=== PATIENT | female | born 1950 | race Caucasian/White ===

== ENCOUNTER 2020-01-24 14:06 | Outpatient (REF) | payer MEDICARE, OTHER, SELFPAY ==
--- NOTE | 2020-01-24 | MM_ITS ---
EXAMINATION: MM SCREENING DIGITAL BREAST TOMOSYNTHESIS, BILATERAL CLINICAL INFORMATION: Screening. Asymptomatic. The lifetime risk of breast cancer based on the Tyrer-Cuzick Model is 4%. COMPARISON: Mammography: 12/02/2018, 12/01/2017 TECHNIQUE: Digital breast tomosynthesis is performed in both the craniocaudal and mediolateral oblique views along with computer-aided detection (CAD). Synthesized 2D images are generated from the tomosynthesis. Additional left MLO view is provided. FINDINGS: There are scattered areas of fibroglandular density (ACR BI-RADS breast composition Category b). There are no significant masses, abnormal calcifications, or other abnormalities. The axilla and skin contours are unremarkable. No significant changes. MM/MM tomosynthesis screening BI IMPRESSION: No mammographic evidence of malignancy. ASSESSMENT: BI-RADS 1: Negative RECOMMENDATION: Routine annual mammography screening. This patient's information was entered into a reminder system with a target due date for their next mammogram.
== END 2020-01-24 14:07 | disposition home or self-care (01) ==
LOC: HO.MAMMO 14:06
PROVIDERS: Visit Provider Physician Assistant
DX: Z12.31 Encounter for screening mammogram for malignant neoplasm of breast (principal)
CPT/HCPCS: 77063; 77067

== ENCOUNTER 2020-06-12 14:37 | Inpatient (IN) | payer MEDICARE, OTHER, SELFPAY ==
--- NOTE | ~2020-06-12 | CT_ITS ---
EXAMINATION: CT CHEST, ABDOMEN AND PELVIS WITHOUT CONTRAST CLINICAL INFORMATION: Elevated liver enzymes, 15 days of cough and WBC count 17,000 COMPARISON: No pertinent prior studies are available for comparison. TECHNIQUE: Multidetector volumetric imaging was performed from the thoracic inlet through the pubic symphysis without IV contrast. Sagittal and coronal reformatted images were obtained on the technologist's workstation. This CT examination was performed using dose optimization techniques as appropriate, variously including the following: *Automated exposure control *Adjustment of mA and/or kV according to patient size (this includes techniques or standardized protocols for targeted exams where dose is matched to indication/reason for exam; i.e. extremities or head) *Use of iterative reconstruction technique DLP: 865 mGy-cm FINDINGS: CHEST: Lung: Multiple masses are seen throughout the lungs. Some appear somewhat branching clustered. Many have central air within them. A few of the larger are as follows: a large left perihilar lung mass measuring 3.5 x 3.0 x 2.7 cm and a left lower lobe pleural-based mass measuring 5.5 x 5.5 x 4.9 cm. Differential diagnosis would include metastatic disease along with multifocal pneumonia.. Mediastinum: The mediastinum is normal. The central vascular structures are unremarkable. No hilar or mediastinal lymphadenopathy. Pericardium/Pleura: No significant effusion. No pleural mass or thickening. Chest Wall/Axilla: Increased density is seen in the right breast compared with the left. No discrete mass is seen. ABDOMEN/PELVIS: Peritoneal Space: No significant free air or free fluid identified. Liver, Gallbladder, Biliary Tree: The liver is normal in size, shape, and attenuation. No evidence of hepatic metastatic disease is seen. No focal hepatic lesion or biliary ductal dilatation is present. The gallbladder contains multiple radiopaque gallstones but no evidence of gallbladder wall thickening, or obvious pericholecystic inflammatory changes. Pancreas: Unremarkable Spleen: Unremarkable Adrenal Glands: Left adrenal gland appears thickened. The right is within normal limits Kidneys and Ureters: The kidneys are normal in size, shape, and attenuation. No hydronephrosis, hydroureter, or calculi seen. No perinephric stranding. Bladder: Unremarkable Gastrointestinal Tract: A small hiatal hernia is seen. There is some mild thickening of the second portion of the duodenum with some mild surrounding stranding. Extensive sigmoid diverticular changes are present without diverticulitis. The small and large bowel are otherwise unremarkable. The appendix is unremarkable. Abdominal Wall: No significant hernia is appreciated. Lymph Nodes: No lymphadenopathy. Vascular: The aorta appears normal.. The IVC appears unremarkable. PELVIC VISCERA: Patient status post hysterectomy. I believe the ovaries are seen and may appear normal. OSSEUS STRUCTURES: Degenerative changes present in the spine most marked from L3 through S1. Lytic area in T1 probably a hemangioma. No convincing evidence of osseous metastatic disease is seen. CT/CT abdomen pelvis wo con IMPRESSION: 1. Multifocal masses throughout the lungs. Some have central air and appear cavitary. Others are in somewhat of a branching pattern. Differential diagnosis would include multifocal pneumonia versus metastatic disease. Biopsy would be beneficial at differentiating these 2 possibilities. 2. No associated mediastinal lymphadenopathy. 3. No evidence of hepatic or osseous metastatic disease. 4. Left adrenal thickening which could represent metastatic disease. 5. A small amount of free intraperitoneal fluid is seen with some mild inflammatory changes around the duodenum as described above. A discrete mass lesion is not seen. 6. There is cholelithiasis without cholecystitis. 7. Increased density right breast compared with the left but a discrete mass is not seen. This critical result was discussed with DELPHINE Marrero at 10:45 PM on the evening of the exam and it was ascertained that the content and urgency of the report was understood at the time of direct communication.
--- NOTE | ~2020-06-12 | XR_ITS ---
EXAMINATION: XR CHEST CLINICAL INFORMATION: Bronchoscopy with left biopsies COMPARISON: Previous chest x-ray most recent 06/12/2020 TECHNIQUE: Frontal view of the chest was obtained. FINDINGS: No pneumothorax post bronchoscopy is seen. The cardiac and mediastinal contours are stable. There are bilateral nodules/masses that do not appear appreciably changed. The largest is at the left lung base and measures approximately 3 x 5 cm. There is a right jugular catheter with tip projecting over the SVC. There is no pleural effusion. Bony structures are unremarkable. XR/XR chest 1V IMPRESSION: No pneumothorax post bronchoscopy. Stable bilateral pulmonary nodules/masses.
--- NOTE | ~2020-06-12 | CT_ITS ---
EXAMINATION: CT CHEST WITHOUT CONTRAST CLINICAL INFORMATION: Follow-up multiple pulmonary infiltrates COMPARISON: Previous chest CT 06/12/2020 TECHNIQUE: Multidetector volumetric CT imaging of the chest was done. Axial MIP volume rendering provided. Sagittal and coronal reformatted images were obtained. This CT examination was performed using dose optimization techniques as appropriate, variously including the following: *Automated exposure control *Adjustment of mA and/or kV according to patient size (this includes techniques or standardized protocols for targeted exams where dose is matched to indication/reason for exam; i.e. extremities or head) *Use of iterative reconstruction technique DLP: 181 mGy-cm FINDINGS: LUNGS: There are bilateral cavitary and noncavitary nodules and lung masses. There is a 1.4 x 2.1 cm nodule in the right upper lobe axial image 183 series 7. This is slightly decreased in size from 1.8 x 3 cm on 06/12/2020 exam. There is a 1.9 x 3.3 cm solid nodule in the left upper lobe adjacent to the pleural fissure axial image 236 series 7. This is decreased in size from 2.7 x 3.6 cm axial image 189 series 7 on 06/12/2020 exam. There is bronchial wall thickening focal bronchiectasis in the lingula. There is interval decrease in peribronchial nodules previously seen axial image 239 series 9. There are small nodules in the right middle lobe. Some appear solid and some appear associated with focal bronchiectasis and bronchial wall thickening and are partially cavitary. These appear decreased in size as well. The largest right middle lobe nodule is a cavitary 1.6 x 1.9 cm nodule axial image 407 series 7 compared to 1.8 x 2.5 cm axial image 275 series 7. There are similar-appearing areas of focal bronchiectasis and bronchial wall thickening and surrounding peribronchial cavitary nodules in the right lower lobe. The largest measures 2.3 x 3.2 cm axial image 438 series 7. This measured 3 x 3.8 cm on previous exam axial image 327 series 7 and does not appear appreciably changed in size. This does appear more cavitary. Other more solid-appearing right lower lobe nodules also appear more cavitary. There is a solid 1 cm nodule in the inferior lingula axial image 346 series 7 that is stable. There is a mass in the left lower lobe. This is solid appearing and measures 4.1 x 6.5 cm axial image 439 series 7. This measured 3.3 x 5 cm on prior exam June 2020 and is slightly increased in size. There is an adjacent predominately solid-appearing 1.8 x 1.6 cm left lower lobe nodule axial image 433 series 7. This is decreased in size from approximately 2.3 x 2.8 cm axial image 342 series 7 on June 2020 exam. MEDIASTINUM: There is mild coronary artery calcification. There is a right jugular line with tip in the SVC. The mediastinum is otherwise normal. PLEURA: There is no pleural effusion. No pleural mass or thickening. AXILLA: No lymphadenopathy. UPPER ABDOMEN: Unremarkable. OSSEOUS STRUCTURES: There are degenerative changes of the spine and shoulders. CT/CT chest wo con IMPRESSION: There is mixed appearance of the solid and cavitary pulmonary nodules and masses compared to 06/12/2020 exam. This favors an infectious or inflammatory process. Infections such as fungal infection, RICKY, TB, septic emboli as well as a granulomatous disease and vasculitis should be considered.
--- NOTE | ~2020-06-12 | XR_ITS ---
EXAMINATION: XR CHEST CLINICAL INFORMATION: Weakness. Question pneumonia. COMPARISON: None TECHNIQUE: Frontal view of the chest was obtained. FINDINGS: Cardiac silhouette is normal in size. The lungs are adequately aerated. Retrocardiac opacity is present in addition to a smaller nodular density of the right lung base. Ill-defined opacity in the left midlung is nonspecific. No pleural effusion or pneumothorax. XR/XR chest 1V IMPRESSION: Bilateral nodular opacities are nonspecific. Findings may represent multifocal pneumonia, however, lung masses are not excluded. Clinical correlation recommended. Further evaluation can be obtained with a lateral radiograph or cross-sectional imaging of the chest.
--- NOTE | ~2020-06-12 | IR_ITS ---
PROCEDURE: IR INSERTION OF TUNNEL CATHETER CLINICAL INFORMATION: Renal failure COMPARISON: None TECHNIQUE: Procedure and risks and benefits including bleeding, infection and pneumothorax were discussed with the patient and informed consent was obtained. All elements of maximal sterile barrier technique followed including use of cap, mask, sterile gown, sterile gloves, a sterile full body drape and hand hygiene. Also followed skin preparation with 2% chlorhexidine for cutaneous antisepsis, and sterile ultrasound preparation with sterile gel and probe cover when applicable. The right neck was prepped and draped in the usual sterile fashion. Using ultrasound guidance and a 5 [place] micropuncture system, right internal jugular vein access was obtained. Over an 018 wire, a 5 [place] dilator was positioned in the SVC. An 035 guidewire was advanced through the 5 [place] dilator into the right atrium. Following serial dilatation, an 11.5 [place] 13 cm in length temporary [place] dialysis catheter was placed. Catheter tip is in the SVC. Both ports flushed well, had good blood return and were instilled with 1.2 mL heparin 1000 unit per mL solution. Real-time ultrasound guidance was used to document vein patency and for needle entry. A formal ultrasound picture was recorded. Fluoroscopy time 0.7 minutes. DAP: 167 cGy-cm2 FINDINGS: There is a right internal jugular dialysis catheter with tip projecting over the SVC. IR/IR cvc insert central tunnel IMPRESSION: Right internal jugular 11.5 [place] 13 cm in length [place] dialysis catheter placement.
--- NOTE | ~2020-06-12 | CT_ITS ---
PROCEDURE: CT GUIDED BIOPSY, KIDNEY CLINICAL INFORMATION: Acute kidney failure COMPARISON: June 12, 2020 TECHNIQUE: CT fluoroscopic-guided renal core biopsy This CT examination was performed using dose optimization techniques as appropriate, variously including the following: *Automated exposure control *Adjustment of mA and/or kV according to patient size (this includes techniques or standardized protocols for targeted exams where dose is matched to indication/reason for exam; i.e. extremities or head) *Use of iterative reconstruction technique DLP: 318 mGy-cm FINDINGS: Informed consent was obtained from the patient prior to the procedure. During this process, the procedure and potential alternatives were explained, along with the intended outcome and benefits. The risks of the procedure, as well as the risk of not doing the procedure, were discussed. The patient was given the opportunity to ask questions regarding the procedure and appeared competent to make medical decisions. A signed consent form which documents this discussion was placed in the medical record. Using sterile technique and CT fluoroscopic guidance a 17-gauge guiding needle was directed to the lower pole of the left kidney from posterior approach. 4 18-gauge core samples were obtained. Patient tolerate procedure without difficulty. Post biopsy scanning did not demonstrate any hematoma. CT/CT biopsy renal LT IMPRESSION: Successful ultrasound-guided core biopsy lower pole of the left kidney.
--- NOTE | ~2020-06-12 | IR_ITS ---
PROCEDURE: IR INSERTION OF TUNNEL CATHETER CLINICAL INFORMATION: Renal failure. COMPARISON: None TECHNIQUE: Procedure, risks and benefits including bleeding, infection and pneumothorax were discussed with the patient and informed consent was obtained. All elements of maximal sterile barrier technique followed including use of cap, mask, sterile gown, sterile gloves, a sterile full body drape and hand hygiene. Also followed skin preparation with 2% chlorhexidine for cutaneous antisepsis, and sterile ultrasound preparation with sterile gel and probe cover when applicable. The right neck and chest were prepped and draped in the usual sterile fashion. The skin and soft tissues were anesthetized with 1% lidocaine plain. Both ports of the temporary dialysis catheter were aspirated. The skin and soft tissues of the right anterior chest were anesthetized with 1% lidocaine plain. A small incision was made. A subcutaneous tunnel from the chest to the neck incision was anesthetized with 1% lidocaine plain. A 14.5-Uzbek palindrome permacath was tunneled from the chest to the neck incision. An 035 guidewire was advanced through the existing temporary dialysis catheter into the IVC. Following serial dilatation through a peel-away sheath, permacath was advanced centrally into the chest. Catheter tip is at the cavoatrial junction. Both ports had good blood return, flushed easily and were instilled with 1.9 mL heparin 1000 unit per mL solution. The patient received Versed 0.5 mg during the procedure. FLUOROSCOPY TIME: 0.5 minutes. DAP: 233 cGy-cm2 (hernandez-centimeter squared). IMAGES: 1 saved fluoroscopic image. FINDINGS: There is a right internal jugular dialysis catheter with tip projecting over the cavoatrial junction. IR/IR cvc insert central tunnel IMPRESSION: Right internal jugular 14.5-Uzbek 23 cm in length palindrome permacath placement.
--- NOTE | ~2020-06-12 | IR_ITS ---
EXAMINATION: X-RAY IR ULTRASOUND venous access Real-time ultrasound guidance was used for venous access and to confirm vein patency for right internal jugular vein access. A formal ultrasound picture was recorded.
[2020-06-12 15:10] VITALS: BP 134/64; PULSE 107; RESP 18; TEMP 36.6; O2SAT 96; BMI 28.0
--- NOTE | 2020-06-12 19:22 | ECG_ITS ---
Test Reason : WEAKNESS Blood Pressure : / mmHG Vent. Rate : 094 BPM Atrial Rate : 094 BPM P-R Int : 158 ms QRS Dur : 066 ms QT Int : 330 ms P-R-T Axes : 049 025 004 degrees QTc Int : 412 ms Normal sinus rhythm Possible Left atrial enlargement Low voltage QRS Cannot rule out Anterior infarct , age undetermined Abnormal ECG No previous ECGs available Referred By: Johan Rowan Electronically Signed By:DIANDRA LOCO MD
[2020-06-12 20:03] VITALS: BP 138/67; PULSE 95; RESP 18; TEMP 37.4; O2SAT 94
[2020-06-12] MEDS: 0.9 % Sodium Chloride 1,000 ML 999 ML IV (20:43)
--- NOTE | 2020-06-12 20:44 | PC.NURSE ---
iv inserted, labs drawn, ekg obtained, bladder scan performed, cardiac catheterization technician nsr 90s, vss, ivf hanging per order, will continue to monitor.
[2020-06-12 20:52] LABS: MANUAL DIFF FLAG NO
[2020-06-12 20:56] LABS: Basophils Percent Auto 0.2 % (0-2); Eosinophils Absolute Auto 0.1 X10*3/uL (0.0-0.4); Eosinophils Percent Auto 0.5 % (0-4); Hemoglobin 11.5 g/dl (12.0-16.0); Imm Gran Abs Auto 0.14 X10*3/uL (0.00-0.03); Imm Gran Pct Auto 0.8 % (0.0-0.4); Lymphocytes Absolute Auto 1.1 X10*3/uL (1.2-4.9); Lymphocytes Percent Auto 6.4 % (20-40); Mean Corpuscular HGB Conc 32.9 g/dl (31.0-35.0); Mean Corpuscular Hemoglobin 27.1 pg (27.0-33.0); Mean Corpuscular Volume 82.4 fL (80-98); Mean Platelet Volume 10.8 fL (9.4-12.3); Monocytes Absolute Auto 0.6 X10*3/uL (0.1-1.2); Monocytes Percent Auto 3.3 % (2-11); Neutrophils Absolute Auto 15.2 X10*3/uL (2.0-8.3); Neutrophils Percent Auto 88.8 % (45-73); Platelet Count 532 X10*3/uL (160-400); Red Blood Count 4.25 X10*6/uL (4.20-5.50); Red Cell Distribution Width 14.1 % (11.0-16.0); White Blood Count 17.1 X10*3/uL (4.8-10.8)
[2020-06-12 21:15] LABS: INTERNATIONAL NORM RATIO 1.2 (0.9-1.1); Prothrombin Time 14.2 SEC (10.8-13.0)
[2020-06-12 21:17] LABS: Partial Thromboplastin Time 28.4 SEC (24.1-38.0)
[2020-06-12 21:34] LABS: Troponin-I High Sensitivity 30.5 ng/L (<3.5-17.0)
[2020-06-12 21:35] LABS: Alanine Aminotransferase 93 U/L (0-31); Alkaline Phosphatase 121 U/L (39-117); Anion Gap 28 (12-20); Aspartate Amino Transferase 41 U/L (5-31); Bilirubin Direct 0.3 mg/dL (0.0-0.5); Bilirubin Total 0.5 mg/dL (0.0-1.0); Blood Urea Nitrogen 121 mg/dL (9-16); Calcium 7.8 mg/dL (8.4-10.2); Carbon Dioxide 20 mmol/L (22-29); Chloride 85 mmol/L (96-108); Creatinine Clr Calc Pharmacy 4.7; Estimated Glomerular Filt Rate 3; Glucose Random 123 mg/dL (60-115); Lactate Dehydrogenase 336 U/L (122-220); Lipase 62 U/L (8-78); Magnesium 2.4 mg/dL (1.6-2.6); Potassium 5.1 mmol/L (3.3-5.1); Sodium 128 mmol/L (135-145); Total Protein 6.2 g/dL (6.5-8.0)
[2020-06-12 21:36] LABS: Procalcitonin 1.84 ng/mL
[2020-06-12 22:00] VITALS: BP 142/69; PULSE 89; RESP 18; TEMP 37.1; O2SAT 98
[2020-06-12 22:06] LABS: Influenza A PCR NEGATIVE (Negative); Influenza B PCR NEGATIVE (Negative); Resp Syncy Virus RNA Qual PCR NEGATIVE (Negative); SARS COV2 PCR INHOUSE NEGATIVE (Negative)
--- NOTE | 2020-06-12 22:16 | PC.NURSE ---
warming patients extremities to obtain blood cultures as well as VL, unable to medicate until they are obtained.
[2020-06-12 22:24] LABS: Ferritin 3367 ng/mL (10-250)
[2020-06-12] MEDS: cefTRIAXone sodium 1 GM in 0.9 % Sodium Chloride 50 ML IV (22:39)
--- NOTE | 2020-06-12 22:40 | PC.NURSE ---
pt medicated per order
[2020-06-12] MEDS: Azithromycin 500 MG in 0.9 % Sodium Chloride 250 ML 125 MG IV (23:21)
--- NOTE | 2020-06-12 23:21 | PC.NURSE ---
patients second antibiotic running per order. 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
--- NOTE | 2020-06-12 23:31 | ED_ITS ---
HPI - Weakness General Chief complaint: Weakness Stated complaint: weakness Time Seen by Provider: 06/12/20 19:21 Source: patient Mode of arrival: ambulatory Limitations: no limitations History of Present Illness HPI Narrative: Patient presents to the ED for weakness and coughing for the past 15 days. Patient also states she thinks she lost about 30 lb since April. Patient states slight burning in abdomen. Patient denies any nausea, vomiting, diarrhea, slurred speech, loss of vision, or paralysis of extremities. Patient has described weakness more as fatigue. Related Data Home Medications Medication Instructions Recorded Confirmed amlodipine 1 tab PO QPM 06/12/20 06/12/20 atorvastatin 1 tab PO QPM 06/12/20 06/12/20 Allergies Allergy/AdvReac Type Severity Reaction Status Date / Time No Known Allergies Allergy Verified 06/12/20 15:17 Review of Systems Constitutional: Constitutional: Reports as per HPI, Reports no additional constitutional complaints, Reports fatigue and Reports weakness Eyes: Eyes: Reports as per HPI and Reports no additional eye complaints ENT: Reports system reviewed and no additional complaints, except as documented and Reports as per HPI Cardiovascular: Cardiovascular: Reports as per HPI and Reports no additional cardiovascular complaints Respiratory: Respiratory: Reports as per HPI, Reports no additional respiratory complaints and Reports cough Gastrointestinal: Gastrointestinal: Reports as per HPI and Reports no additional gastrointestinal complaints Genitourinary: Genitourinary: Reports no additional female genitourinary complaints and Reports as per HPI Musculoskeletal: Musculoskeletal: Reports no additional musculoskeletal complaints and Reports as per HPI Neurologic: Reports system reviewed and no additional complaints, except as documented, Reports as per HPI and Reports weakness Psychiatric: Psychiatric: Reports no additional psychiatric complaints and Reports as per HPI Endocrine: Endocrine: Reports fatigue [facility] Social History Social History Alcohol intake: never Smoking Status: Former smoker Use of substances other than those prescribed or required for medical reasons: No Advance Directives: No Advance Directives Information Provided: Yes Physical Exam Vital Signs: Vital Signs: Last Vital Signs Temp 98.7 F 06/12/20 22:00 Pulse 89 06/12/20 22:00 Resp 18 06/12/20 22:00 BP 142/69 H 06/12/20 22:00 Pulse Ox 98 06/12/20 22:00 Body Mass Index 28.0 Const: General: cooperative, healthy appearing, comfortable, no acute distress, well developed, alert, awake and Physically active HENMT: Head: Yes normal to inspection, Yes No palpable skull fracture present, Yes normocephalic, Yes atraumatic, No abrasion, No Christianson's sign, No contusion, No cranial bruits, No hematoma, No laceration, No occipital foramen tenderness, No palpable skull fracture, No raccoon eyes, No scalp lesion, No scalp tenderness, No Temporal artery tenderness present and No periorbital ecchymosis Eyes: General: appearance normal, both eyes and all related structures Neck: Neck: Yes normal visual inspection, Yes full ROM, Yes no lymphadenopathy, Yes no meningeal signs, Yes trachea midline, Yes supple and No tender Chest: Chest palpation & inspection: normal inspection of the chest and normal palpation of entire chest wall Resp: Effort & Inspection: normal respiratory effort and able to speak in complete sentences Auscultation: clear to auscultation bilaterally Cardio: Jugular venous distension: no JVD Heart sounds: S1 normal heart sound present and S2 normal heart sound present GI: Inspection: Yes normal to inspection and No abdominal wall ecchymosis Palpation (GI): Soft to palpation, not firm, nontender, no guarding and not rigid : General: No CVA tenderness and Yes no CVA tenderness Back/Spine/Pelvis: Back: no CVA tenderness, No CVA tenderness and No back tenderness Skin: General skin exam: no rashes or lesions noted and elasticity normal Neuro: Other: Negative facial droop. Negative slurred speech. Negative pronator drift. All extremities equal strength 5+. [id number] and rapid hand movement intact. Negative for any neuro deficit. General: no meningeal signs Extrem: Other: Negative for any swelling, pitting edema, redness, calf tenderness General: Yes normal to inspection and Yes full ROM Psych: Appearance: grossly normal, well kempt and not disheveled Course Course Course Narrative: Will look for source of infection due to patient stating weakness for 15 days with cough. Patient have labs, EKG, troponin, chest x-ray, COVID swab, lactic, and blood culture. Reevaluation(s) Reevaluation #1: X-ray shows possible pneumonia. With patient stating cough and elevated white blood cell count. Antibiotics were started. Patient's BILLIE 2nd other any imaging with IV contrast. Patient to be sent for chest CT and abdominal CT without contrast. Patient never hypoxic or altered. Reevaluation #2: Chest CT shows pneumonia versus mass. Case presented to hospitalist for admission. Diagnosis BILLIE. Positive troponin ( from BILLIE/infection). EKG negative STEMI. Pneumonia. Is alert oriented x3. Spoke with hospitalist who recommend nephrology be consulted due to Elevated creatine. Reevaluation #3: Spoke with Dr. Douglas nephrology and she was informed of patient's history, physical exam, labs, diagnostics. She states presently patient does not need emergent dialysis and think patient is having vasculitis. She recommend patient be kep NPO overnight in case patient needs dialysis in the morning and PermCath should be placed. Hospitalist made aware. MDM - Weakness MDM Narrative Medical decision making narrative: Pneumonia versus mass. BILLIE. Elevated troponin due to infectious process. Lab Data Result diagrams: 06/12/20 20:41 06/12/20 20:41 Labs: Lab Results 06/12/20 06/12/20 06/12/20 Range/Units 20:41 20:41 20:41 WBC 17.1 H (4.8-10.8) X10*3/uL RBC 4.25 (4.20-5.50) X10*6/uL Hgb 11.5 L (12.0-16.0) g/dl Hct 35.0 L (37-47) % MCV 82.4 (80-98) fL MCH 27.1 (27.0-33.0) pg MCHC 32.9 (31.0-35.0) g/dl RDW 14.1 (11.0-16.0) % Plt Count 532 H (160-400) X10*3/uL MPV 10.8 (9.4-12.3) fL Immature Gran % (Auto) 0.8 H (0.0-0.4) % Neut % (Auto) 88.8 H (45-73) % Lymph % (Auto) 6.4 L (20-40) % [place] % (Auto) 3.3 (2-11) % Eos % (Auto) 0.5 (0-4) % Baso % (Auto) 0.2 (0-2) % Lymph # (Auto) 1.1 L (1.2-4.9) X10*3/uL [place] # (Auto) 0.6 (0.1-1.2) X10*3/uL Eos # (Auto) 0.1 (0.0-0.4) X10*3/uL Baso # (Auto) 0.0 (0.0-0.2) X10*3/uL Abs Immat Gran (auto) 0.14 H (0.00-0.03) X10*3/uL Absolute Neuts (auto) 15.2 H (2.0-8.3) X10*3/uL Absolute Nucleated RBC 0.000 (0.0-0.012) X10*3/uL Nucleated RBC % (auto) 0.0 (0.0-0.2) /100WBC PT 14.2 H (10.8-13.0) SEC INR 1.2 H (0.9-1.1) APTT 28.4 (24.1-38.0) SEC Sodium 128 L (135-145) mmol/L Potassium 5.1 (3.3-5.1) mmol/L Chloride 85 L (96-108) mmol/L Carbon Dioxide 20 L (22-29) mmol/L Anion Gap 28 H (12-20) BUN 121 H* (9-16) mg/dL Creatinine 11.69 H* (0.5-1.4) mg/dL Estim Creat Clear Calc 4.7 Estimated GFR 3 Random Glucose 123 H (60-115) mg/dL Lactic Acid (0.5-2.0) mmol/L Calcium 7.8 L (8.4-10.2) mg/dL Magnesium 2.4 (1.6-2.6) mg/dL Ferritin (10-250) ng/mL Total Bilirubin 0.5 (0.0-1.0) mg/dL Direct Bilirubin 0.3 (0.0-0.5) mg/dL AST 41 H (5-31) U/L ALT 93 H (0-31) U/L Alkaline Phosphatase 121 H (39-117) U/L Lactate Dehydrogenase 336 H (122-220) U/L Total Creatine Kinase 15 L (26-140) U/L Troponin I High Sens (<3.5-17.0) ng/L Total Protein 6.2 L (6.5-8.0) g/dL Albumin 3.0 L (3.5-5.0) g/dL Lipase 62 (8-78) U/L Procalcitonin ng/mL Coronavirus (PCR) (Negative) Influenza Type A (PCR) (Negative) Influenza Type B (PCR) (Negative) RSV RNA Qual (PCR) (Negative) 06/12/20 06/12/20 06/12/20 Range/Units 20:41 20:41 20:41 WBC (4.8-10.8) X10*3/uL RBC (4.20-5.50) X10*6/uL Hgb (12.0-16.0) g/dl Hct (37-47) % MCV (80-98) fL MCH (27.0-33.0) pg MCHC (31.0-35.0) g/dl RDW (11.0-16.0) % Plt Count (160-400) X10*3/uL MPV (9.4-12.3) fL Immature Gran % (Auto) (0.0-0.4) % Neut % (Auto) (45-73) % Lymph % (Auto) (20-40) % [place] % (Auto) (2-11) % Eos % (Auto) (0-4) % Baso % (Auto) (0-2) % Lymph # (Auto) (1.2-4.9) X10*3/uL [place] # (Auto) (0.1-1.2) X10*3/uL Eos # (Auto) (0.0-0.4) X10*3/uL Baso # (Auto) (0.0-0.2) X10*3/uL Abs Immat Gran (auto) (0.00-0.03) X10*3/uL Absolute Neuts (auto) (2.0-8.3) X10*3/uL Absolute Nucleated RBC (0.0-0.012) X10*3/uL Nucleated RBC % (auto) (0.0-0.2) /100WBC PT (10.8-13.0) SEC INR (0.9-1.1) APTT (24.1-38.0) SEC Sodium (135-145) mmol/L Potassium (3.3-5.1) mmol/L Chloride (96-108) mmol/L Carbon Dioxide (22-29) mmol/L Anion Gap (12-20) BUN (9-16) mg/dL Creatinine (0.5-1.4) mg/dL Estim Creat Clear Calc Estimated GFR Random Glucose (60-115) mg/dL Lactic Acid (0.5-2.0) mmol/L Calcium (8.4-10.2) mg/dL Magnesium (1.6-2.6) mg/dL Ferritin 3367 H (10-250) ng/mL Total Bilirubin (0.0-1.0) mg/dL Direct Bilirubin (0.0-0.5) mg/dL AST (5-31) U/L ALT (0-31) U/L Alkaline Phosphatase (39-117) U/L Lactate Dehydrogenase (122-220) U/L Total Creatine Kinase (26-140) U/L Troponin I High Sens 30.5 H (<3.5-17.0) ng/L Total Protein (6.5-8.0) g/dL Albumin (3.5-5.0) g/dL Lipase (8-78) U/L Procalcitonin ng/mL Coronavirus (PCR) NEGATIVE (Negative) Influenza Type A (PCR) NEGATIVE (Negative) Influenza Type B (PCR) NEGATIVE (Negative) RSV RNA Qual (PCR) NEGATIVE (Negative) 06/12/20 06/12/20 Range/Units 20:42 22:30 WBC (4.8-10.8) X10*3/uL RBC (4.20-5.50) X10*6/uL Hgb (12.0-16.0) g/dl Hct (37-47) % MCV (80-98) fL MCH (27.0-33.0) pg MCHC (31.0-35.0) g/dl RDW (11.0-16.0) % Plt Count (160-400) X10*3/uL MPV (9.4-12.3) fL Immature Gran % (Auto) (0.0-0.4) % Neut % (Auto) (45-73) % Lymph % (Auto) (20-40) % [place] % (Auto) (2-11) % Eos % (Auto) (0-4) % Baso % (Auto) (0-2) % Lymph # (Auto) (1.2-4.9) X10*3/uL [place] # (Auto) (0.1-1.2) X10*3/uL Eos # (Auto) (0.0-0.4) X10*3/uL Baso # (Auto) (0.0-0.2) X10*3/uL Abs Immat Gran (auto) (0.00-0.03) X10*3/uL Absolute Neuts (auto) (2.0-8.3) X10*3/uL Absolute Nucleated RBC (0.0-0.012) X10*3/uL Nucleated RBC % (auto) (0.0-0.2) /100WBC PT (10.8-13.0) SEC INR (0.9-1.1) APTT (24.1-38.0) SEC Sodium (135-145) mmol/L Potassium (3.3-5.1) mmol/L Chloride (96-108) mmol/L Carbon Dioxide (22-29) mmol/L Anion Gap (12-20) BUN (9-16) mg/dL Creatinine (0.5-1.4) mg/dL Estim Creat Clear Calc Estimated GFR Random Glucose (60-115) mg/dL Lactic Acid 1.0 (0.5-2.0) mmol/L Calcium (8.4-10.2) mg/dL Magnesium (1.6-2.6) mg/dL Ferritin (10-250) ng/mL Total Bilirubin (0.0-1.0) mg/dL Direct Bilirubin (0.0-0.5) mg/dL AST (5-31) U/L ALT (0-31) U/L Alkaline Phosphatase (39-117) U/L Lactate Dehydrogenase (122-220) U/L Total Creatine Kinase (26-140) U/L Troponin I High Sens (<3.5-17.0) ng/L Total Protein (6.5-8.0) g/dL Albumin (3.5-5.0) g/dL Lipase (8-78) U/L Procalcitonin 1.84 ng/mL Coronavirus (PCR) (Negative) Influenza Type A (PCR) (Negative) Influenza Type B (PCR) (Negative) RSV RNA Qual (PCR) (Negative) ECG Data Interpretation: Normal sinus rhythm. Ventricular rate 94. Pr interval 158. QRS 86. QTC 412. Negative STEMI Discharge Plan Discharge Patient Disposition: Admitted As Inpatient
[2020-06-13] VITALS (8 sets, daily range): BP systolic 138–165; BP diastolic 58–72; PULSE 72–99; RESP 16–28; TEMP 36.3–37.1; O2SAT 92–98
[2020-06-13] MEDS: 0.9 % Sodium Chloride 1,000 ML 999 ML IV (02:54)
[2020-06-13] MEDS: 0.9 % Sodium Chloride 1,000 ML 125 ML IVCONT ×3 (02:54→17:08)
[2020-06-13 03:57] LABS: Osmolality, Serum 310 mosm/kg (281-305)
[2020-06-13 03:59] LABS: Troponin-I High Sensitivity 27.2 ng/L (<3.5-17.0)
--- NOTE | 2020-06-13 05:58 | PM.IMHP ---
History of Present Illness Date of Service: 06/13/20 Chief Complaint: weakess This 69-year-old female with past medical history of hypertension and hyperlipidemia presents to the hospital with progressive the worsening fatigue, malaise, and generalized weakness. Patient reports that in April she started feeling weak, sister developing weight loss a total of about 20 or more lb since April on intentional, as well as overall just feeling sick since April but worsened in the past 15 days. Patient has low appetite but tries to stay hydrated. She reports a dry cough with no fever, has chills, no abdominal pain nausea or vomiting but has heartburn, no diarrhea but rather has constipation, no urinary symptoms and no lower extremity edema. Has no weakness numbness or tingling, no headache or change in vision. Around any sick contacts and no recent travel. On arrival to the ED hemodynamically stable with a temperature of 97.9?, heart rate of 107, respiratory rate of 18, blood pressure 134/64, satting 96% on room air Labs are significant for WBC count of 17.1, hemoglobin of 11.5, platelets of 532, PT of 14.2, INR of 1.2, sodium of 128, chloride of 85, BUN of 121, creatinine of 11.69 no baseline for comparison, serum osmolarity of 310, ferritin of 3367, AST of 41, ALT of 93, alk-phos of 121, LDH of 336, procalcitonin of 1.84, COVID-19 negative, influenza A/B and RSV negative. Imaging including chest CT abdominal CT show multifocal masses throughout the lungs, some have central air and appear cavitary, others are in somewhat of a branching pattern. Differential diagnosis would include multifocal pneumonia versus metastatic disease. No mediastinal lymphadenopathy, no evidence of hepatic or osseous metastatic disease, left adrenal thickening which could represent metastatic disease, a small amount of free intraperitoneal fluid is seen with some mild inflammatory changes around the duodenum with no discrete mass, cholelithiasis with no cholecystitis, increased density of right breast compared with left with no discrete mass. Past medical history as below, when asked about her smoking history reports that she smoked from the age of [age] but has not smoked since. Does not drink alcohol and does not use drugs. Patient will be admitted for further management. Review of Systems Review of Systems: Yes all other systems are reviewed and are negative [facility] Medical History (Updated 06/13/20 @ 06:10 by Sol Motta MD) Hyperlipidemia Hypertension Pertinent family history: Significant for prostate cancer in father, COPD in mother Surgical History (Updated 06/13/20 @ 06:07 by Sol Motta MD) H/O hernia repair History of partial hysterectomy Social History (Updated 06/13/20 @ 06:07 by Sol Motta MD) Alcohol intake: never Smoking Status: Former smoker Years Smoked: Five years Smoked in Last 30 Days: No Use of substances other than those prescribed or required for medical reasons: No Advance Directives: No Advance Directives Information Provided: Yes Meds Allergies Allergy/AdvReac Type Severity Reaction Status Date / Time No Known Allergies Allergy Verified 06/12/20 15:17 Active Medications: Current Medications Generic Name Dose Route Start Last Admin Trade Name Freq PRN Reason Stop Dose Admin Acetaminophen 650 mg 06/13/20 03:35 Acetaminophen 325 Mg Tablet PO Q6H PRN Pain, Mild (Pain Scale 1-3) Al Hydroxide/Mg Hydroxide 30 ml 06/13/20 03:35 Magnesium Hydrox/Alum Hydrox 30 Ml Oral.Susp PO Q4H PRN Heartburn/Nausea Amlodipine Besylate 5 mg 06/13/20 03:35 06/13/20 04:24 Amlodipine Besylate 5 Mg Tablet PO Not Given BEDTIME [facility] Protocol Atorvastatin Calcium 10 mg 06/13/20 03:35 06/13/20 04:24 Atorvastatin Calcium 10 Mg Tablet PO Not Given BEDTIME [facility] Azithromycin 500 mg 06/13/20 21:00 Azithromycin 500 Mg Tablet PO Q24H [facility] Docusate Sodium 100 mg 06/13/20 09:00 Docusate Sodium 100 Mg Capsule PO BID [facility] Heparin Sodium (Porcine) 5,000 unit 06/13/20 06:00 Heparin Sodium,Porcine 5,000 Unit/Ml Vial SUBCUT Q12H MAHAMED Sodium Chloride 1,000 mls @ 125 mls/hr 06/13/20 00:30 06/13/20 02:54 Ns IVCONT 125 mls/hr .Q8H MA[facility]AMED Administration Ceftriaxone Sodium 1 gm/ 50 mls @ 100 mls/hr 06/13/20 21:00 Sodium Chloride IV Q24H [facility] Ondansetron HCl 4 mg 06/13/20 03:35 Ondansetron Hcl 4 Mg/2 Ml Vial IVPUSH Q8H PRN Nausea and Vomiting Sodium Chloride 3 ml 06/13/20 08:00 0.9 % Sodium Chloride Flush 3 Ml Syringe IVFLUSH QSHIFT [facility] Home Medications Medication Instructions Recorded Confirmed Last Taken Type amlodipine 1 tab PO QPM 06/12/20 06/12/20 Unknown History atorvastatin 1 tab PO QPM 06/12/20 06/12/20 Unknown History Physical Exam Vital Signs and Narrative: Vital Signs: Last Vital Signs Temp 98.8 F 06/13/20 05:41 Pulse 92 06/13/20 05:41 Resp 20 06/13/20 05:41 BP 151/72 H 06/13/20 05:41 Pulse Ox 94 06/13/20 05:41 Body Mass Index 28.0 Const: General: cooperative, no acute distress, ill appearing and tired appearing Orientation/consciousness: patient oriented x3 Eyes: General: appearance normal, both eyes and all related structures Resp: Effort & Inspection: normal respiratory effort and able to speak in complete sentences Cardio: Rate: regular rate Rhythm: regular rhythm GI: Palpation (GI): Soft to palpation Auscultation: normal bowel sounds Skin: General skin exam: no rashes or lesions noted Neuro: General: patient oriented x3 Cognition (Neuro): normal cognition Extrem: General: Yes normal to inspection and Yes no pedal edema Results Labs CBC and Chem 7: 06/12/20 20:41 06/12/20 20:41 Labs: Laboratory Results - last 24 hr 06/12/20 06/12/20 06/12/20 20:41 20:41 20:41 MCV 82.4 MCH 27.1 MCHC 32.9 RDW 14.1 Plt Count 532 H MPV 10.8 Immature Gran % (Auto) 0.8 H Neut % (Auto) 88.8 H Lymph % (Auto) 6.4 L [place] % (Auto) 3.3 Eos % (Auto) 0.5 Baso % (Auto) 0.2 Lymph # (Auto) 1.1 L [place] # (Auto) 0.6 Eos # (Auto) 0.1 Baso # (Auto) 0.0 Abs Immat Gran (auto) 0.14 H Absolute Neuts (auto) 15.2 H Absolute Nucleated RBC 0.000 Nucleated RBC % (auto) 0.0 PT 14.2 H INR 1.2 H APTT 28.4 Anion Gap 28 H Estim Creat Clear Calc 4.7 Estimated GFR 3 Random Glucose 123 H Osmolality Lactic Acid Calcium 7.8 L Magnesium 2.4 Ferritin Total Bilirubin 0.5 Direct Bilirubin 0.3 AST 41 H ALT 93 H Alkaline Phosphatase 121 H Lactate Dehydrogenase 336 H Total Creatine Kinase 15 L Troponin I High Sens Total Protein 6.2 L Albumin 3.0 L Lipase 62 Procalcitonin Coronavirus (PCR) Influenza Type A (PCR) Influenza Type B (PCR) RSV RNA Qual (PCR) 06/12/20 06/12/20 06/12/20 20:41 20:41 20:41 MCV MCH MCHC RDW Plt Count MPV Immature Gran % (Auto) Neut % (Auto) Lymph % (Auto) [place] % (Auto) Eos % (Auto) Baso % (Auto) Lymph # (Auto) [place] # (Auto) Eos # (Auto) Baso # (Auto) Abs Immat Gran (auto) Absolute Neuts (auto) Absolute Nucleated RBC Nucleated RBC % (auto) PT INR APTT Anion Gap Estim Creat Clear Calc Estimated GFR Random Glucose Osmolality Lactic Acid Calcium Magnesium Ferritin 3367 H Total Bilirubin Direct Bilirubin AST ALT Alkaline Phosphatase Lactate Dehydrogenase Total Creatine Kinase Troponin I High Sens 30.5 H Total Protein Albumin Lipase Procalcitonin Coronavirus (PCR) NEGATIVE Influenza Type A (PCR) NEGATIVE Influenza Type B (PCR) NEGATIVE RSV RNA Qual (PCR) NEGATIVE 06/12/20 06/12/20 06/13/20 20:42 22:30 03:24 MCV MCH MCHC RDW Plt Count MPV Immature Gran % (Auto) Neut % (Auto) Lymph % (Auto) [place] % (Auto) Eos % (Auto) Baso % (Auto) Lymph # (Auto) [place] # (Auto) Eos # (Auto) Baso # (Auto) Abs Immat Gran (auto) Absolute Neuts (auto) Absolute Nucleated RBC Nucleated RBC % (auto) PT INR APTT Anion Gap Estim Creat Clear Calc Estimated GFR Random Glucose Osmolality 310 H Lactic Acid 1.0 Calcium Magnesium Ferritin Total Bilirubin Direct Bilirubin AST ALT Alkaline Phosphatase Lactate Dehydrogenase Total Creatine Kinase Troponin I High Sens Total Protein Albumin Lipase Procalcitonin 1.84 Coronavirus (PCR) Influenza Type A (PCR) Influenza Type B (PCR) RSV RNA Qual (PCR) 06/13/20 03:24 MCV MCH MCHC RDW Plt Count MPV Immature Gran % (Auto) Neut % (Auto) Lymph % (Auto) [place] % (Auto) Eos % (Auto) Baso % (Auto) Lymph # (Auto) [place] # (Auto) Eos # (Auto) Baso # (Auto) Abs Immat Gran (auto) Absolute Neuts (auto) Absolute Nucleated RBC Nucleated RBC % (auto) PT INR APTT Anion Gap Estim Creat Clear Calc Estimated GFR Random Glucose Osmolality Lactic Acid Calcium Magnesium Ferritin Total Bilirubin Direct Bilirubin AST ALT Alkaline Phosphatase Lactate Dehydrogenase Total Creatine Kinase Troponin I High Sens 27.2 H Total Protein Albumin Lipase Procalcitonin Coronavirus (PCR) Influenza Type A (PCR) Influenza Type B (PCR) RSV RNA Qual (PCR) Imaging Radiologist's Impressions: Impressions Chest X-Ray 06/12/20 19:22 IMPRESSION: Bilateral nodular opacities are nonspecific. Findings may represent multifocal pneumonia, however, lung masses are not excluded. Clinical correlation recommended. Further evaluation can be obtained with a lateral radiograph or cross-sectional imaging of the chest. Abdomen/Pelvis CT 06/12/20 21:43 IMPRESSION: 1. Multifocal masses throughout the lungs. Some have central air and appear cavitary. Others are in somewhat of a branching pattern. Differential diagnosis would include multifocal pneumonia versus metastatic disease. Biopsy would be beneficial at differentiating these 2 possibilities. 2. No associated mediastinal lymphadenopathy. 3. No evidence of hepatic or osseous metastatic disease. 4. Left adrenal thickening which could represent metastatic disease. 5. A small amount of free intraperitoneal fluid is seen with some mild inflammatory changes around the duodenum as described above. A discrete mass lesion is not seen. 6. There is cholelithiasis without cholecystitis. 7. Increased density right breast compared with the left but a discrete mass is not seen. This critical result was discussed with DELPHINE Marrero at 10:45 PM on the evening of the exam and it was ascertained that the content and urgency of the report was understood at the time of direct communication. Chest CT 06/12/20 21:43 IMPRESSION: 1. Multifocal masses throughout the lungs. Some have central air and appear cavitary. Others are in somewhat of a branching pattern. Differential diagnosis would include multifocal pneumonia versus metastatic disease. Biopsy would be beneficial at differentiating these 2 possibilities. 2. No associated mediastinal lymphadenopathy. 3. No evidence of hepatic or osseous metastatic disease. 4. Left adrenal thickening which could represent metastatic disease. 5. A small amount of free intraperitoneal fluid is seen with some mild inflammatory changes around the duodenum as described above. A discrete mass lesion is not seen. 6. There is cholelithiasis without cholecystitis. 7. Increased density right breast compared with the left but a discrete mass is not seen. This critical result was discussed with DELPHINE Marrero at 10:45 PM on the evening of the exam and it was ascertained that the content and urgency of the report was understood at the time of direct communication. Assessment and Plan (1) Pneumonia: Status: Acute (2) Lung mass: Status: Acute (3) BILLIE (acute kidney injury): Status: Acute (4) Transaminitis: Status: Acute (5) Elevated troponin: Status: Acute (6) Leukocytosis: Status: Acute (7) Malaise: Status: Acute (8) Abnormal chest CT: Status: Acute This is a 69-year-old female with past medical history of HTN, HLD who presents to the hospital with generalized malaise found to have abnormal findings on imaging as well as significant BILLIE. # abnormal CT imaging: pneumonia versus lung cancer versus vasculitis - patient has abnormal imaging as above - has leukocytosis, elevated prolactin - negative COVID-19 PCR - she also reports 20-30 lb weight loss in the last 2 months - given her leukocytosis, as well as elevated prolactin will treat for pneumonia - nephrology has been consulted for her severe BILLIE which recommends thinking of vasculitis as a differential therefore will also obtain ANCA, YOHAN, and complement levels - will treat for community-acquired pneumonia - follow cultures - Hematology-Oncology consulted # generalized malaise - possibly multifactorial secondary to above-mentioned differentials as well as BILLIE - will start her on IV fluids - admit to telemetry - PT OT when ready to be discharged # BILLIE - no baseline on file but presents today with significantly elevated BUN and creatinine - patient reports low oral intake but endorses adequate fluid intake - nephrology has been consulted - will keep NPO for possible intervention including port placement and dialysis in a.m. # elevated troponin - no chest pain, no EKG changes - monitor # leukocytosis - possibly reactive versus secondary to pneumonia - IV antibiotics as above - follow cultures # hypertension - stable - continue amlodipine DVT prophylaxis: Heparin subQ
[2020-06-13] MEDS: Heparin Sodium,Porcine 5,000 UNIT/ML VIAL 5000 UNIT SUBCUT ×2 (06:31→17:08)
[2020-06-13] MEDS: Docusate Sodium 100 MG CAPSULE PO ×2 (08:47→20:22)
[2020-06-13 09:57] LABS: Glucose Urine UA NEG (NEG); Leukocyte Esterase Urine 2+ (NEG); Nitrite Urine NEG (NEG); Specific Gravity - Urine 1.015 (1.005-1.025); UACC Culture Trigger YES; Urine Blood 2+ (NEG); Urine Ketones NEG (NEG); Urine Protein 2+ MG/DL (NEG-TRACE)
[2020-06-13] MEDS: 0.9 % Sodium Chloride Flush 3 ML SYRINGE IVFLUSH ×2 (10:04→17:07)
[2020-06-13 10:05] LABS: Appearance Urine CLOUDY; Color Urine YELLOW
[2020-06-13 10:11] LABS: Bacteria Urine 2+ /LPF; Squamous Epithelial Cell Urine 3+ /LPF
--- NOTE | 2020-06-13 11:03 | MHC.CM.PN ---
Met with patient in regards to discharge planning. Patient lives with her son, ambulates independently and had no services prior to coming to the ER. PCP verified as Dr Christophe Mayo. Copy of HCP obtained from PCP's office. IMM explained and signed. Patient has been admitted due to Pnuemonia vs Cancer. Patient is not willing to discuss discharging until work up has been completed and patient finds out if she has cancer. Case Management will continue to monitor for d/c needs.
[2020-06-13 11:04] LABS: Anion Gap 25 (12-20); Blood Urea Nitrogen 122 mg/dL (9-16); Calcium 7.2 mg/dL (8.4-10.2); Carbon Dioxide 19 mmol/L (22-29); Chloride 91 mmol/L (96-108); Creatinine Clr Calc Pharmacy 4.8; Estimated Glomerular Filt Rate 3; Glucose Random 138 mg/dL (60-115); Potassium 5.2 mmol/L (3.3-5.1); Sodium 130 mmol/L (135-145)
--- NOTE | 2020-06-13 14:38 | PC.NURSE ---
call made up to [facility], awaiting call back
[2020-06-13] MEDS: Sodium Polystyrene Sulfon/Sorb 15 GM/60 ML ORAL.SUSP PO (17:08)
[2020-06-13] MEDS: Azithromycin 500 MG TABLET PO (20:22)
[2020-06-13] MEDS: Atorvastatin Calcium 10 MG TABLET PO (20:22)
[2020-06-13] MEDS: amLODIPine Besylate 5 MG TABLET PO (20:22)
[2020-06-13] MEDS: cefTRIAXone sodium 1 GM in 0.9 % Sodium Chloride 50 ML IV (20:23)
[2020-06-14] MEDS: 0.9 % Sodium Chloride 1,000 ML 125 ML IVCONT ×3 (01:12→18:21)
[2020-06-14 03:27] VITALS: BP 146/64; PULSE 87; RESP 18; TEMP 36.7; O2SAT 92
--- NOTE | 2020-06-14 05:52 | CONS_ITS ---
DATE OF SERVICE: REASON FOR CONSULTATION: I was called to see this patient to assist in the management of her acute kidney injury. SUMMARY: Akanksha is a 69-year-old woman with a history of hypertension and hyperlipidemia with essentially normal renal function, who has had fatigue, generalized weakness, and has had poor appetite for the last 2 weeks. She has lost about 20 pounds. She has been on amlodipine for blood pressure and comes to the hospital because of generalized weakness. At the time of admission, she was found to have a creatinine of 11 and potassium of 5.1. She had baseline investigations done, which showed evidence of multifocal masses throughout the lungs suggestive of malignancy. There is no urinary tract obstruction. She is on IV fluids and this consultation was requested. PAST MEDICAL HISTORY: Ongoing medical problems include history of hypertension and hyperlipidemia. No renal issues in the past. PAST SURGICAL HISTORY: Includes partial hysterectomy and herniorrhaphy. FAMILY HISTORY: Not significant for admission. Father had prostate cancer. Mom had COPD. SOCIAL HISTORY: She does not consume alcohol. She used to smoke in the past and she had quit smoking 7 years ago. ALLERGIES: NO KNOWN DRUG ALLERGIES. MEDICATIONS AT TIME OF ADMISSION: Include Tylenol, Maalox, amlodipine 5 mg, atorvastatin, azithromycin, and Colace. REVIEW OF SYSTEMS: Positive for generalized weakness, fatigue, some nausea, poor p.o. intake. No diarrhea or constipation. No polyuria or polydipsia. No fever. No rash. All other systems were reviewed with the patient. PHYSICAL EXAMINATION: GENERAL: Today, Akanksha appears comfortable not in any distress. NECK: Supple. No JVD. HEENT: Mucosa is dry. LUNGS: Air entry equal. No rales. HEART: S1 and S2 heard. No gallop or rub. ABDOMEN: Distended, soft, and nontender. Bowel sounds heard. NEUROLOGIC: Alert and awake. No asterixis. EXTREMITIES: No edema. No rash. No clubbing. No palpable lymphadenopathy. VITAL SIGNS: Blood pressure was 140/60, pulse of 68, and temperature 97.3. LABORATORY DATA: Hemoglobin 11.5, platelets 522, and WBC 17.1. Sodium 130, potassium 5.2, CO2 19, BUN 122, creatinine 11.52, and calcium 7.2. Serum osmolality 310. Troponin I of 27.2. Urinalysis showed 2+ protein, 2+ leukocytes with wbc's, 1 to 4 rbc's. IMAGING DATA: CT of the abdomen and pelvis showed no hydronephrosis. Both kidneys appeared normal in size. There is evidence of multifocal masses throughout the lungs. No mediastinal lymphadenopathy. IMPRESSION: 69-year-old woman with acute kidney injury with mild hyponatremia, hyperkalemia, and metabolic acidosis. The differential diagnosis with acute kidney injury includes Acute glomerulonephritis/RPGN,acute tubular necrosis from ischemia. The imaging study did not reveal any evidence of obstruction at this time. Other possibility including rhabdomyolysis should be considered as well. My recommendation is to obtain a spot urine for sodium, creatinine, protein. We will obtain a serological workup including ANCA,MPO,PR3, anti-GBM, YOHAN, Compliments,SPEP for underlying glomerulonephritis. In the meantime, we will administer a dose of Kayexalate to correct hyperkalemia and continue with her IV hydration and monitor the urine output. Today, there is no absolute indication for dialysis. There are no overt signs or symptoms of uremia. If the renal function does not improve in the next 24 to 48 hours or if she has electrolyte imbalance which is difficult to control medically, then she will require renal replacement therapy pending workup. We will follow closely along with the team. Isra Tabor MD BPA/MODL / [id number] MTDD
[2020-06-14 06:00] VITALS: BMI 28.0
[2020-06-14] MEDS: Heparin Sodium,Porcine 5,000 UNIT/ML VIAL 5000 UNIT SUBCUT (06:22)
[2020-06-14 06:45] LABS: MANUAL DIFF FLAG NO
[2020-06-14 06:57] LABS: Basophils Absolute Auto 0.1 X10*3/uL (0.0-0.2); Basophils Percent Auto 0.3 % (0-2); Eosinophils Absolute Auto 0.3 X10*3/uL (0.0-0.4); Eosinophils Percent Auto 1.6 % (0-4); Hematocrit 30.7 % (37-47); Hemoglobin 10.2 g/dl (12.0-16.0); Imm Gran Abs Auto 0.25 X10*3/uL (0.00-0.03); Imm Gran Pct Auto 1.6 % (0.0-0.4); Lymphocytes Absolute Auto 1.1 X10*3/uL (1.2-4.9); Mean Corpuscular HGB Conc 33.2 g/dl (31.0-35.0); Mean Corpuscular Hemoglobin 27.6 pg (27.0-33.0); Mean Corpuscular Volume 83.2 fL (80-98); Monocytes Absolute Auto 0.6 X10*3/uL (0.1-1.2); Monocytes Percent Auto 3.6 % (2-11); Neutrophils Absolute Auto 13.8 X10*3/uL (2.0-8.3); Neutrophils Percent Auto 85.9 % (45-73); Platelet Count 542 X10*3/uL (160-400); Red Blood Count 3.69 X10*6/uL (4.20-5.50); Red Cell Distribution Width 14.5 % (11.0-16.0)
[2020-06-14 08:00] VITALS: BP 148/65; PULSE 88; RESP 20; TEMP 36.4; O2SAT 93
[2020-06-14 08:04] LABS: Anion Gap 24 (12-20); Blood Urea Nitrogen 128 mg/dL (9-16); Calcium 7.3 mg/dL (8.4-10.2); Carbon Dioxide 18 mmol/L (22-29); Chloride 95 mmol/L (96-108); Creatinine Clr Calc Pharmacy 4.8; Estimated Glomerular Filt Rate 3; Glucose Random 108 mg/dL (60-115); Potassium 5.2 mmol/L (3.3-5.1); Sodium 132 mmol/L (135-145)
[2020-06-14 08:39] LABS: Alanine Aminotransferase 75 U/L (0-31); Albumin Level 2.5 g/dL (3.5-5.0); Alkaline Phosphatase 108 U/L (39-117); Aspartate Amino Transferase 35 U/L (5-31); Bilirubin Direct 0.2 mg/dL (0.0-0.5); Bilirubin Total 0.4 mg/dL (0.0-1.0); Total Protein 5.2 g/dL (6.5-8.0)
--- NOTE | 2020-06-14 08:49 | PM.EVENT ---
Event Note Date of Service: 06/14/20 Event Note: I have seen this patient for pulmonary consultation this morning. Patient's history, Lab and imaging reviewed and patient is examined. Complete note to be dictated A: MULTIFOCAL A ROUNDED CONSOLIDATIONS WITH A FEW SHOWING CENTRAL CAVITATION. POSSIBILITIES INCLUDE MULTIFOCAL PNEUMONIA, AND METASTATIC DISEASE. P: I WOULD PREFER TO TREAT HER A CASE OF PNEUMONIA, AND THEN IF THE MASS IS DO NOT SUBSIDE IN SIZE, THEN PLAN FOR THE PERCUTANEOUS NEEDLE BIOPSY. Case discussed with Dr. Rodriguez, and advised to start the patient on ceftriaxone and azithromycin at this time. Will follow.
[2020-06-14] MEDS: 0.9 % Sodium Chloride Flush 3 ML SYRINGE IVFLUSH (09:59)
[2020-06-14 10:37] LABS: Myeloperoxidase Antibody <1.0 AI; Proteinase 3 PR3 Antibodies 6.5 AI
[2020-06-14 11:45] VITALS: BP 162/70; PULSE 75; RESP 20; TEMP 36.1; O2SAT 96
[2020-06-14 12:03] VITALS: BMI 28.0
[2020-06-14 13:21] LABS: Anti Nuclear Antibody Screen NEGATIVE (NEGATIVE)
--- NOTE | 2020-06-14 14:03 | MHC.CM.PN ---
Patient is on IV Solu-medrol, IVF, IV Ceftriaxone and PO Zithromax for question of PNA vs lung CA. Patient's kidney function worse but no dialysis required at this time. Discharge plan is home no services. Family will provide transport. CM will continue to follow for discharge needs.
[2020-06-14 15:20] VITALS: BP 152/66; PULSE 90; RESP 18; TEMP 36.5; O2SAT 94
--- NOTE | 2020-06-14 15:40 | P.PNNP_ITS ---
Subjective Subjective Date of Service: 06/14/20 Physical Exam Vital Signs: Vital Signs: Last Vital Signs Temp 97.7 F 06/14/20 15:20 Pulse 90 06/14/20 15:20 Resp 18 06/14/20 15:20 BP 152/66 H 06/14/20 15:20 Pulse Ox 94 06/14/20 15:20 Body Mass Index 28.0 Const: General: comfortable Orientation/consciousness: patient oriented x3 Neck: Neck: Yes supple Resp: Auscultation: diminished lung sounds Cardio: Heart sounds: no murmurs and no rubs GI: Auscultation: normal bowel sounds Neuro: General: patient oriented x3 Motor exam (neuro): No Asterixis during motor activity present Objective Data Labs CBC & Chem 7: 06/14/20 06:20 06/14/20 06:20 Labs: Laboratory Results - last 24 hr 06/13/20 06/13/20 06/14/20 06:25 06:25 06:20 WBC 16.0 H RBC 3.69 L Hgb 10.2 L Hct 30.7 L MCV 83.2 MCH 27.6 MCHC 33.2 RDW 14.5 Plt Count 542 H MPV 11.0 Immature Gran % (Auto) 1.6 H Neut % (Auto) 85.9 H Lymph % (Auto) 7.0 L [place] % (Auto) 3.6 Eos % (Auto) 1.6 Baso % (Auto) 0.3 Lymph # (Auto) 1.1 L [place] # (Auto) 0.6 Eos # (Auto) 0.3 Baso # (Auto) 0.1 Abs Immat Gran (auto) 0.25 H Absolute Neuts (auto) 13.8 H Absolute Nucleated RBC 0.000 Nucleated RBC % (auto) 0.0 Sodium Potassium Chloride Carbon Dioxide Anion Gap BUN Creatinine Estim Creat Clear Calc Estimated GFR Random Glucose Calcium Total Bilirubin Direct Bilirubin AST ALT Alkaline Phosphatase Total Creatine Kinase Total Protein Albumin YOHAN Screen NEGATIVE Proteinase 3 (PR3) Ab 6.5 H Myeloperoxidase Ab <1.0 06/14/20 06:20 WBC RBC Hgb Hct MCV MCH MCHC RDW Plt Count MPV Immature Gran % (Auto) Neut % (Auto) Lymph % (Auto) [place] % (Auto) Eos % (Auto) Baso % (Auto) Lymph # (Auto) [place] # (Auto) Eos # (Auto) Baso # (Auto) Abs Immat Gran (auto) Absolute Neuts (auto) Absolute Nucleated RBC Nucleated RBC % (auto) Sodium 132 L Potassium 5.2 H Chloride 95 L Carbon Dioxide 18 L Anion Gap 24 H BUN 128 H* Creatinine 11.59 H* Estim Creat Clear Calc 4.8 Estimated GFR 3 Random Glucose 108 Calcium 7.3 L Total Bilirubin 0.4 Direct Bilirubin 0.2 AST 35 H ALT 75 H Alkaline Phosphatase 108 Total Creatine Kinase 42 D Total Protein 5.2 L Albumin 2.5 L YOHAN Screen Proteinase 3 (PR3) Ab Myeloperoxidase Ab Microbiology Microbiology Results: Microbiology 06/13/20 Unknown Urine clean catch - Clean Catch Midstream Urine Culture - Final 06/12/20 22:36 Blood - Venous Blood Culture - Preliminary No growth after 24 hours. 06/12/20 22:30 Blood - Venous Blood Culture - Preliminary No growth after 24 hours. 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
--- NOTE | 2020-06-14 17:45 | P.PNIM_ITS ---
Subjective Subjective Date of Service: 06/15/20 Interval History: probable Rpgn , BILLIE, Pneumonia Review of Systems Patient still generally weak. Denies any shortness of breath, has dry cough but no phlegm. Denies any nausea vomiting or abdominal pain or diarrhea. Denies any urinary complaints. No fever chills Physical Exam Vital Signs: Vital Signs: Last Vital Signs Temp 97.7 F 06/14/20 15:20 Pulse 90 06/14/20 15:20 Resp 18 06/14/20 15:20 BP 152/66 H 06/14/20 15:20 Pulse Ox 94 06/14/20 15:20 Body Mass Index 28.0 Physical exam : Constitutional:: Not in acute distress. Cvs: rrr, [id number] , no murmur res: fair air entry , slightly diminshed at bases. abd: no rebound or guarding ,nt, bs present. ext pulses present , no cyanosis neuro: axo3 , nonfocal. Objective Data Current Medications Generic Name Dose Route Start Last Admin Trade Name Freq PRN Reason Stop Dose Admin Acetaminophen 650 mg 06/13/20 03:35 Acetaminophen 325 Mg Tablet PO Q6H PRN Pain, Mild (Pain Scale 1-3) Al Hydroxide/Mg Hydroxide 30 ml 06/13/20 03:35 Magnesium Hydrox/Alum Hydrox 30 Ml Oral.Susp PO Q4H PRN Heartburn/Nausea Amlodipine Besylate 5 mg 06/13/20 03:35 06/13/20 20:22 Amlodipine Besylate 5 Mg Tablet PO 5 mg BEDTIME MAHAMED Administration Protocol Atorvastatin Calcium 10 mg 06/13/20 03:35 06/13/20 20:22 Atorvastatin Calcium 10 Mg Tablet PO 10 mg BEDTIME MAHAMED Administration Azithromycin 500 mg 06/13/20 21:00 06/13/20 20:22 Azithromycin 500 Mg Tablet PO 500 mg Q24H MAHAMED Administration Docusate Sodium 100 mg 06/13/20 09:00 06/14/20 09:57 Docusate Sodium 100 Mg Capsule PO Not Given BID MAHAMED Heparin Sodium (Porcine) 5,000 unit 06/13/20 06:00 06/14/20 06:22 Heparin Sodium,Porcine 5,000 Unit/Ml Vial SUBCUT 5,000 unit Q12H MAHAMED Administration Sodium Chloride 1,000 mls @ 125 mls/hr 06/13/20 00:30 06/14/20 17:16 Ns IVCONT Infused .Q8H MAHAMED Infusion Ceftriaxone Sodium 1 gm/ 50 mls @ 100 mls/hr 06/13/20 21:00 06/13/20 21:19 Sodium Chloride IV Infused Q24H MAHAMED Infusion Methylprednisolone Sodium 66 mls @ 66 mls/hr 06/14/20 11:35 Succinate 1,000 mg/ Sodium IV 06/16/20 09:59 Chloride DAILY [facility] Omeprazole 20 mg 06/14/20 16:30 Omeprazole 20 Mg Capsule. PO BID@0630,1630 [facility] Ondansetron HCl 4 mg 06/13/20 03:35 Ondansetron Hcl 4 Mg/2 Ml Vial IVPUSH Q8H PRN Nausea and Vomiting Sodium Chloride 3 ml 06/13/20 08:00 06/14/20 17:16 0.9 % Sodium Chloride Flush 3 Ml Syringe IVFLUSH Not Given QSHIFT [facility] Labs CBC & Chem 7: 06/14/20 06:20 06/15/20 08:44 Microbiology Microbiology Results: Microbiology 06/13/20 Unknown Urine clean catch - Clean Catch Midstream Urine Culture - Final 06/12/20 22:36 Blood - Venous Blood Culture - Preliminary No growth after 24 hours. 06/12/20 22:30 Blood - Venous Blood Culture - Preliminary No growth after 24 hours. Assessment and Plan (1) BILLIE (acute kidney injury): Status: Acute Assessment and Plan: Day 2: 69-year-old female with past medical history of HTN, HLD who presents to the hospital with generalized malaise found to have abnormal findings on imaging as well as significant BILLIE. 1.abnormal CT imaging: pneumonia versus lung cancer versus vasculitis patient has abnormal imaging as above has leukocytosis, elevated prolactin,negative COVID-19 PCR, blood culture and urine culture prelim neg she also reports 20-30 lb weight loss in the last 2 months given her leukocytosis, as well as elevated prolactin will treat for pneumonia nephrology has been consulted for her severe BILLIE which recommends thinking of vasculitis as a differential therefore will also obtain ANCA, YOHAN, and complement levels continue ceftriaxone/azithromycin day2. 2. generalized malaise:- possibly multifactorial secondary to above-mentioned differentials as well as BILLIE pt/ot 3.BILLIE: no baseline on file but presents today with significantly elevated BUN and creatinine patient reports low oral intake but endorses adequate fluid intake ? rpgn as serology positive Pr3 : 6.5 adjust fluids to 80 ml/hr addedd pulse solumedrol 4. elevated troponin- no chest pain, no EKG changes 5. leukocytosis: possibly reactive versus secondary to pneumonia IV antibiotics as above blood culture and urine culture prelim neg 6.hypertension: continue amlodipine DVT prophylaxis:hold Heparin subQ due to possible renal biopsy in am
[2020-06-14] MEDS: methylPREDNISolone Sod Succ 1,000 MG in 0.9 % Sodium Chloride 50 ML 66 MG IV (18:21)
[2020-06-14] MEDS: Omeprazole 20 MG CAPSULE.DR PO (18:24)
[2020-06-14 19:17] VITALS: BP 162/64; PULSE 108; RESP 20; TEMP 36.4; O2SAT 94
[2020-06-14] MEDS: Azithromycin 500 MG TABLET PO (21:20)
[2020-06-14] MEDS: Atorvastatin Calcium 10 MG TABLET PO (21:20)
[2020-06-14] MEDS: amLODIPine Besylate 5 MG TABLET PO (21:20)
--- NOTE | 2020-06-14 23:10 | CONS_ITS ---
DATE OF SERVICE: 06/14/2020 HISTORY OF PRESENT ILLNESS: This 69-year-old female has been admitted since yesterday with chief complaint of general fatigue, malaise, and poor appetite. She has mild dry cough off and on. She has no fever, chills, or chest pain. The patient has been feeling weak and tired since mid April. Appetite has been poor as she has not been drinking enough fluids or eating much. There is history of about 20 pounds weight loss in the past 4 to 6 weeks. The patient does have some constipation. No diarrhea. REVIEW OF SYSTEMS: Mainly includes cough, poor appetite, generalized weakness, and no other significant issues. PAST MEDICAL HISTORY: Includes hyperlipidemia and hypertension. No chronic lung disease. No diabetes or previous liver or kidney diseases. PERSONAL HISTORY: The patient is nonsmoker except that in younger age from age 14 to 19, she did smoke about half pack a day. She denies drinking and denies any drugs of abuse. PHYSICAL EXAMINATION: GENERAL: A 69-year-old female, is lying down in bed. She appears very comfortable. VITAL SIGNS: Temperature is normal, respiratory rate 15, heart rate is 82. EAR, NOSE, THROAT EXAMINATION: Normal. NECK: Trachea midline. No lymphadenopathy. No thyromegaly. CHEST: Symmetrical. Percussion note is resonant. She has good breath sounds on both sides. On auscultation, a few inspiratory crackles are heard over the left lower lobe area. CARDIAC: PMI is not palpable. Heart sounds are somewhat distant. No murmurs or gallops. ABDOMEN: Flat, soft, nontender. No palpable mass. EXTREMITIES: No edema or varicosities are noted. LABORATORY DATA: White cell count 16, hemoglobin 10.2, neutrophils are 85.9, and absolute neutrophil of 13.8, slightly elevated. Chest x-ray shows bilateral nodular densities, but no definite consolidation. CT scan of the chest shows that the patient has multifocal rounded masses in both lungs, especially on the left side. Two particular densities are as follows. In the left perihilar area, 3.5 x 3 x 2.7 cm mass. Left lower lobe area, pleural based 5.5 x 5.5 x 4.9 mass and there is suggestion of central cavitation. No mediastinal or hilar lymphadenopathy is noted. There is no significant amount of pleural effusions. CLINICAL IMPRESSION: Bilateral multilobular densities, some of them showing central cavitation. Differential diagnosis is multifocal pneumonia. Also, metastatic lung disease, but no suggestion of primary at this time. These findings could also be consistent with COVID pneumonia, however, COVID test is negative. Also, the tests for influenza A and B are negative. The patient has chemistry findings of acute renal failure. This may be due to poor oral intake and dehydration. RECOMMENDATIONS: 1. Even though there is a strong possibility of metastatic disease, however, I think we should still consider possibility of non-specific pneumonia. 2. I would go ahead and treat her empirically for pneumonia. 3. Continue treatment for acute renal failure with appropriate hydration. 4. We will follow up closely with the repeat CT scan of the chest and if there is no change in the size of the masses, then she should have percutaneous needle biopsy of one of the masses. Thank you very much for asking me to see this patient. MD AUREA Dumont/KEN / [id number]
[2020-06-14 23:19] VITALS: BP 137/56; PULSE 88; RESP 18; TEMP 36.6; O2SAT 93
[2020-06-15] VITALS (10 sets, daily range): BP systolic 136–151; BP diastolic 59–76; PULSE 75–100; RESP 18–20; TEMP 35.7–36.2; O2SAT 91–96; BMI 33.2
[2020-06-15] MEDS: cefTRIAXone sodium 1 GM in 0.9 % Sodium Chloride 50 ML IV ×2 (00:17→20:16)
[2020-06-15] MEDS: 0.9 % Sodium Chloride 1,000 ML 125 ML IVCONT ×2 (00:17→06:45)
[2020-06-15] MEDS: 0.9 % Sodium Chloride Flush 3 ML SYRINGE IVFLUSH ×2 (10:15→15:55)
[2020-06-15] MEDS: methylPREDNISolone Sod Succ 1,000 MG in 0.9 % Sodium Chloride 50 ML 66 MG IV (10:15)
[2020-06-15 10:32] LABS: Anion Gap 28 (12-20); Blood Urea Nitrogen 131 mg/dL (9-16); Calcium 7.6 mg/dL (8.4-10.2); Carbon Dioxide 15 mmol/L (22-29); Chloride 96 mmol/L (96-108); Creatinine Clr Calc Pharmacy 4.8; Estimated Glomerular Filt Rate 3; Glucose Random 178 mg/dL (60-115); Lactate Dehydrogenase 305 U/L (122-220); Potassium 5.9 mmol/L (3.3-5.1); Sodium 133 mmol/L (135-145)
[2020-06-15 11:26] LABS: Complement C3 138 mg/dL (83-193)
--- NOTE | 2020-06-15 13:22 | PM.HEMONCCN ---
Subjective - Subjective Chief complaint: Consult for lung cancer. Patient: new to practice Consult date: 06/15/20 Requesting Physician: Michael. Primary Care Provider: None Physician Medical Summary: DIAGNOSIS: LUNG CANCER. HPI - Consult Narrative Reason for consult: Consult for lung cancer. Narrative: Akanksha Tran is a pleasant 69 year old lady, with a past medical history of hypertension and hyperlipidemia. She presented to the hospital with progressive the worsening fatigue, malaise, and generalized weakness. She reported that in April, she started feeling weak, and developed a weight loss of about 20 or more lb since April, un intentionally. She has had an overall sick feeling, since April, but worsened in the past 15 days. Patient has low appetite but tries to stay hydrated. She reports a dry cough with no fever, has chills, no abdominal pain nausea or vomiting but has heartburn, no diarrhea but rather has constipation, no urinary symptoms and no lower extremity edema. Denies any weakness numbness or tingling, no headache or change in vision. Denies any sick contacts and no recent travel. On arrival: she has been hemodynamically stable: with a temperature of 97.9?, heart rate of 107, respiratory rate of 18, blood pressure 134/64, satting 96% on room air Labs are significant for: WBC count of 17.1, hemoglobin of 11.5, platelets of 532, PT of 14.2, INR of 1.2, sodium of 128, chloride of 85, BUN of 121, creatinine of 11.69 no baseline for comparison, serum osmolarity of 310, ferritin of 3367, AST of 41, ALT of 93, alk-phos of 121, LDH of 336, procalcitonin of 1.84. COVID-19 negative, influenza A/B and RSV negative. Imaging including chest CT abdominal CT showed: Multifocal masses throughout the lungs, some have central air and appear cavitary, others are in somewhat of a branching pattern. Differential diagnosis would include multifocal pneumonia versus metastatic disease. No mediastinal lymphadenopathy, no evidence of hepatic or osseous metastatic disease, left adrenal thickening which could represent metastatic disease, a small amount of free intraperitoneal fluid is seen with some mild inflammatory changes around the duodenum with no discrete mass, cholelithiasis with no cholecystitis, increased density of right breast compared with left with no discrete mass. Past medical history: When asked about her smoking history reports that she smoked from the age of [age] but has not smoked since. Does not drink alcohol and does not use drugs. Review of Systems - Constitutional Reports system reviewed and no additional complaints, except as documented, Reports lack of energy, Reports malaise, Reports weakness, Reports weight loss - Eyes Reports system reviewed and no additional complaints, except as documented, Denies blurry vision - ENT Reports system reviewed and no additional complaints, except as documented - Cardiovascular Reports system reviewed and no additional complaints, except as documented, Reports chest pain - Respiratory Reports no additional respiratory complaints, Reports chest congestion, Reports dyspnea on exertion - Gastrointestinal Reports system reviewed and no additional complaints, except as documented, Denies abdominal pain, Denies change in bowel habits - Genitourinary Reports no additional female genitourinary complaints, Denies abnormal periods - Musculoskeletal Reports system reviewed and no additional complaints, except as documented, Reports back pain - Integumentary/Breasts Skin/Breast: Reports no additional skin complaints, Denies bleeding lesions - Neurologic Reports system reviewed and no additional complaints, except as documented, Reports weakness - Psychiatric Reports system reviewed and no additional complaints, except as documented, Denies abnormal sleep pattern - Endocrine Reports no additional endocrine complaints, Denies cold intolerance - Hematologic/Lymphatic Reports system reviewed and no additional complaints, except as documented, Denies easy bleeding - Allergic/Immunologic Reports system reviewed and no additional complaints, except as documented, Denies GI upset with certain foods PMFSH Medical History: Medical History (Last Updated 06/21/20 @ 15:26 by Joselin White MD) 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 Hyperlipidemia Hypertension Lung nodules Functional capacity: uses cane/walker Patient : No Surgical History: Surgical History (Last Reviewed 06/21/20 @ 10:04 by Elicia Mccoy) H/O hernia repair History of partial hysterectomy Social History: Social History (Last Reviewed 06/21/20 @ 10:04 by Elicia Mccoy) Alcohol History: Alcohol intake: never Occupation Assessmet: service: No Current occupational status: retired Smoking status: Former smoker Home Medications and Allergies Current Medications: Current Medications Generic Name Dose Route Start Last Admin Trade Name Freq PRN Reason Stop Dose Admin Acetaminophen 650 mg 06/13/20 03:35 Acetaminophen 325 Mg Tablet PO Q6H PRN Pain, Mild (Pain Scale 1-3) Al Hydroxide/Mg Hydroxide 30 ml 06/13/20 03:35 Magnesium Hydrox/Alum Hydrox 30 Ml Oral.Susp PO Q4H PRN Heartburn/Nausea Amlodipine Besylate 5 mg 06/13/20 03:35 06/14/20 21:20 Amlodipine Besylate 5 Mg Tablet PO 5 mg BEDTIME MAHAMED Administration Protocol Atorvastatin Calcium 10 mg 06/13/20 03:35 06/14/20 21:20 Atorvastatin Calcium 10 Mg Tablet PO 10 mg BEDTIME MAHAMED Administration Azithromycin 500 mg 06/13/20 21:00 06/14/20 21:20 Azithromycin 500 Mg Tablet PO 500 mg Q24H MAHAMED Administration Docusate Sodium 100 mg 06/13/20 09:00 06/15/20 08:13 Docusate Sodium 100 Mg Capsule PO Not Given BID MAHAMED Heparin Sodium (Porcine) 5,000 unit 06/13/20 06:00 06/14/20 18:39 Heparin Sodium,Porcine 5,000 Unit/Ml Vial SUBCUT Not Given Q12H MAHAMED Ceftriaxone Sodium 1 gm/ 50 mls @ 100 mls/hr 06/13/20 21:00 06/15/20 00:54 Sodium Chloride IV Infused Q24H MAHAMED Infusion Methylprednisolone Sodium 66 mls @ 66 mls/hr 06/14/20 11:35 06/15/20 11:15 Succinate 1,000 mg/ Sodium IV 06/16/20 09:59 Infused Chloride DAILY MAHAMED Infusion Omeprazole 20 mg 06/14/20 16:30 06/15/20 05:15 Omeprazole 20 Mg Capsule.Dr PO Not Given BID@0630,1630 [facility] Ondansetron HCl 4 mg 06/13/20 03:35 Ondansetron Hcl 4 Mg/2 Ml Vial IVPUSH Q8H PRN Nausea and Vomiting Sodium Bicarbonate 650 mg 06/15/20 15:00 Sodium Bicarbonate 650 Mg Tablet PO TID MAHAMED Sodium Chloride 3 ml 06/13/20 08:00 06/15/20 10:15 0.9 % Sodium Chloride Flush 3 Ml Syringe IVFLUSH 3 ml QSHIFT [facility] Administration Home Medications Medication Instructions Recorded Confirmed Type amlodipine 1 tab PO QPM 06/12/20 06/12/20 History atorvastatin 1 tab PO QPM 06/12/20 06/12/20 History Allergies Allergy/AdvReac Type Severity Reaction Status Date / Time No Known Allergies Allergy Verified 06/12/20 15:17 Physical Exam Vital signs: Vital Signs Temp 97.1 F 06/15/20 13:10 Pulse 99 06/15/20 13:10 Resp 18 06/15/20 13:10 BP 145/65 H 06/15/20 13:10 Pulse Ox 94 06/15/20 13:10 Intake & Output 06/14/20 06/15/20 06/15/20 18:59 06:59 18:59 Intake Total 2240 / 3566.833 1326.833 / 3566.833 726.417 / 726.417 Output Total 50 / 50 Balance 2240 / 3516.833 1276.833 / 3516.833 726.417 / 726.417 Urine Output (Average ml/kg/hr) 0.04 0.04 Intake: Intake, Oral Amount 240 / 480 240 / 480 Intake, IV Amount 1999 / 3086.833 1086.833 / 3086.833 726.417 / 726.417 cefTRIAXone sodium 1 gm In 0.9 50 / 50 % Sodium Chloride 50 ml @ 100 mls/hr IV Q24H [facility] Rx#: [id number] methylPREDNISolone Sod Succ 1, 66 / 66 66 / 66 000 mg In 0.9 % Sodium Chloride 50 ml @ 66 mls/hr IV DAILY [facility] Rx#:[id number] 0.9 % Sodium Chloride 1,000 ml 2000 / 2970.833 970.833 / 2970.833 660.417 / 660.417 @ 125 mls/hr IVCONT .Q8H [facility] Rx #:[id number] Output: Output, Urine Amount 50 / 50 Other: Lunch % Eaten 50% Dinner % Eaten 100% Number of Unmeasured Voids 2 Number of Bowel Movements 4 Urine Bedside Commode Urine Color Concentrated Last Bowel Movement 06/14/20 Stool Bedside Commode Stool Amount Small Stool Color Brown Stool Consistency Soft Weight 78.8 kg 93.3 kg Weight in Grams 13445 Weight 93.3 kg - Constitutional Present: moderate distress - Routine HEENT Exam Head: Present: normal inspection ENT: Present: mucous membranes moist - Routine Neck Exam Present: supple - Routine Respiratory Exam Present: CTAB - Routine Cardiovascular Exam Cardiovascular: Present: RRR, S1, S2 - Routine Abdominal Exam Present: soft, nontender - Routine Rectal Exam Patient deferred: digital exam - Routine Skin Exam Present: intact - Routine Neurological Exam Present: alert, oriented X3, altered mental status, vision grossly intact - Detailed Neurological Exam: Coma Scale Eye Opening: Spontaneous (4) Verbal Response: Oriented (5) Motor Response: Obeys commands (6) Elier Coma Scale Total: 15 - Routine Psychiatric Exam Present: depressed Hem/Onc Consult Result - Labs CBC & Chem 7: 06/21/20 05:22 06/21/20 05:22 Labs: BMP 06/15/20 06/15/20 08:44 08:46 Sodium 133 L Cancelled Potassium 5.9 H Cancelled Chloride 96 Cancelled Carbon Dioxide 15 L Cancelled BUN 131 H* Cancelled Creatinine 12.26 H* Cancelled Calcium 7.6 L Cancelled Assessment and Plan (1) Abnormal chest CT Status: Acute 69-year-old lady, admitted with generalized weakness. CT scan of the chest revealed: 1. Multifocal masses throughout the lungs. Some have central air and appear cavitary. Others are in somewhat of a branching pattern. Differential diagnosis would include multifocal pneumonia versus metastatic disease. Biopsy would be beneficial at differentiating these 2 possibilities. 2. No associated mediastinal lymphadenopathy. 3. No evidence of hepatic or osseous metastatic disease. 4. Left adrenal thickening which could represent metastatic disease. 5. A small amount of free intraperitoneal fluid is seen with some mild inflammatory changes around the duodenum as described above. A discrete mass lesion is not seen. 6. There is cholelithiasis without cholecystitis. 7. Increased density right breast compared with the left but a discrete mass is not seen. Concern is for pulmonary metastases. Primary source, include: breast versus GI versus lung. PLAN: Upon discussion with Interventional Radiology, or left lower lobe is the largest mass. Will schedule biopsy of that. Meantime I will check tumor markers. She had a renal biopsy today to evaluate the etiology for CRF. Thank you, CC: Maria Esther Saeed. Hospital course: The patient was admitted for acute kidney injury with hyperkalemia. She was started on hemodialysis and bicarbonate supplementation. 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 Renal biopsy was consistent with necrotizing granulomas as seen in granulomatosis with polyangiitis. She underwent induction therapy with pulse methylprednisolone then prednisone 60 mg/d, and was given her 1st dose of rituximab on 06/17/2020. Double positive disease was ruled out with a negative anti-GBM antibody. Due to initial concern of infectious etiology of her multifocal pulmonary infiltrates, she was treated with ceftriaxone and azithromycin as for pneumonia. Cultures were negative. She subsequently underwent bronchoscopy on 06/21/2020 which demonstrated extensive endobronchial lesions with aretha pus. Gram stain and fungal stains were negative for organisms. At that point, in consultation with Nephrology and Pulmonology, she was transferred her to [facility] to undergo plasma exchange. (2) BILLIE (acute kidney injury) Status: Acute 69-year-old woman with acute kidney injury with mild hyponatremia, hyperkalemia, and metabolic acidosis. The differential diagnosis with acute kidney injury includes Acute glomerulonephritis/RPGN,acute tubular necrosis from ischemia. The imaging study did not reveal any evidence of obstruction at this time. Other possibility including rhabdomyolysis should be considered as well. Recommendations by renal: To obtain a spot urine for sodium, creatinine, protein. Obtain a serological workup including ANCA,MPO,PR3, anti-GBM, YOHAN, Compliments,SPEP for underlying glomerulonephritis. In the meantime, administer a dose of Kayexalate to correct hyperkalemia. Continue with her IV hydration and monitor the urine output. There is no absolute indication for dialysis. There are no overt signs or symptoms of uremia. If the renal function does not improve in the next 24 to 48 hours or if she has electrolyte imbalance which is difficult to control medically, then she will require renal replacement therapy pending workup. PLAN: Patient underwent a kidney biopsy today, for further evaluation of BILLIE, to look for any evidence of glomerulonephritis.
[2020-06-15] MEDS: Sodium Bicarbonate 650 MG TABLET PO ×2 (15:55→20:13)
[2020-06-15] MEDS: Sodium Polystyrene Sulfon/Sorb 15 GM/60 ML ORAL.SUSP 30 GM PO (15:55)
[2020-06-15] MEDS: Omeprazole 20 MG CAPSULE.DR PO (15:55)
--- NOTE | 2020-06-15 16:57 | HO.PM.IMPN ---
Subjective Subjective Date of Service: 06/16/20 Interval History: adavnced renal dis ? rpgn Review of Systems Patient denies any shortness of breath Has cough mostly dry Denies any nausea or vomiting or abdominal pain or fever or chills or diarrhea. Denies any urinary c/o. Physical Exam Vital Signs: Vital Signs: Last Vital Signs Temp 97.2 F 06/15/20 16:00 Pulse 94 06/15/20 16:00 Resp 18 06/15/20 16:00 BP 151/61 H 06/15/20 16:00 Pulse Ox 96 06/15/20 16:00 Body Mass Index 33.2 Constitutional:: Not in acute distress. Cvs: rrr, [id number] , no murmur res: fair air entry , slightly diminshed at bases. abd: no rebound or guarding ,nt, bs present. ext pulses present , no cyanosis neuro: axo3 , nonfocal. Objective Data Current Medications Generic Name Dose Route Start Last Admin Trade Name Freq PRN Reason Stop Dose Admin Acetaminophen 650 mg 06/13/20 03:35 Acetaminophen 325 Mg Tablet PO Q6H PRN Pain, Mild (Pain Scale 1-3) Al Hydroxide/Mg Hydroxide 30 ml 06/13/20 03:35 Magnesium Hydrox/Alum Hydrox 30 Ml Oral.Susp PO Q4H PRN Heartburn/Nausea Amlodipine Besylate 5 mg 06/13/20 03:35 06/14/20 21:20 Amlodipine Besylate 5 Mg Tablet PO 5 mg BEDTIME MAHAMED Administration Protocol Atorvastatin Calcium 10 mg 06/13/20 03:35 06/14/20 21:20 Atorvastatin Calcium 10 Mg Tablet PO 10 mg BEDTIME MAHAMED Administration Azithromycin 500 mg 06/13/20 21:00 06/14/20 21:20 Azithromycin 500 Mg Tablet PO 500 mg Q24H MAHAMED Administration Docusate Sodium 100 mg 06/13/20 09:00 06/15/20 08:13 Docusate Sodium 100 Mg Capsule PO Not Given BID MAHAMED Heparin Sodium (Porcine) 5,000 unit 06/13/20 06:00 06/14/20 18:39 Heparin Sodium,Porcine 5,000 Unit/Ml Vial SUBCUT Not Given Q12H MAHAMED Ceftriaxone Sodium 1 gm/ 50 mls @ 100 mls/hr 06/13/20 21:00 06/15/20 00:54 Sodium Chloride IV Infused Q24H MAHAMED Infusion Methylprednisolone Sodium 66 mls @ 66 mls/hr 06/14/20 11:35 06/15/20 11:15 Succinate 1,000 mg/ Sodium IV 06/16/20 09:59 Infused Chloride DAILY MAHAMED Infusion Omeprazole 20 mg 06/14/20 16:30 06/15/20 15:55 Omeprazole 20 Mg Capsule. PO 20 mg BID@0630,1630 MAHAMED Administration Ondansetron HCl 4 mg 06/13/20 03:35 Ondansetron Hcl 4 Mg/2 Ml Vial IVPUSH Q8H PRN Nausea and Vomiting Sodium Bicarbonate 650 mg 06/15/20 15:00 06/15/20 15:55 Sodium Bicarbonate 650 Mg Tablet PO 650 mg TID MAHAMED Administration Sodium Chloride 3 ml 06/13/20 08:00 06/15/20 15:55 0.9 % Sodium Chloride Flush 3 Ml Syringe IVFLUSH 3 ml QSHIFT MAHAMED Administration Labs CBC & Chem 7: 06/16/20 05:22 06/16/20 05:22 Microbiology Microbiology Results: Microbiology 06/12/20 22:36 Blood - Venous Blood Culture - Preliminary No growth after 48 hours. 06/12/20 22:30 Blood - Venous Blood Culture - Preliminary No growth after 48 hours. 06/13/20 Unknown Urine clean catch - Clean Catch Midstream Urine Culture - Final Assessment and Plan (1) Pneumonia: Status: Acute (2) BILLIE (acute kidney injury): Status: Acute Assessment and Plan: Day 3: 69-year-old female with past medical history of HTN, HLD who presents to the hospital with generalized malaise found to have abnormal findings on imaging as well as significant BILLIE. 1.abnormal CT imaging: pneumonia versus lung cancer versus vasculitis patient has abnormal imaging as above has leukocytosis, elevated prolactin,negative COVID-19 PCR, blood culture and urine culture prelim neg she also reports 20-30 lb weight loss in the last 2 months given her leukocytosis, as well as elevated prolactin will treat for pneumonia nephrology has been consulted for her severe BILLIE which recommends thinking of vasculitis as a differential therefore will also obtain ANCA, YOHAN, and complement levels continue ceftriaxone/azithromycin day3. 2. generalized malaise:- possibly multifactorial secondary to above-mentioned differentials as well as BILLIE: pt/ot 3.BILLIE: Anion gap metabolic acidosis no baseline on file but presents today with significantly elevated BUN and creatinine patient reports low oral intake but endorses adequate fluid intake ? rpgn as serology positive Pr3 : 6.5 pulse iv solumedrol day2, added bicarb p.o. Hyperkalemia: Given Kayexalate p.o. Will monitor BMP in the evening. Patient went for renal biopsy today. Seems to be tolerated the procedure well. Will continue to monitor. 4. elevated troponin- no chest pain, no EKG changes 5. leukocytosis: possibly reactive versus secondary to pneumonia IV antibiotics as above blood culture and urine culture prelim neg 6.hypertension: continue amlodipine DVT prophylaxis:hold Heparin subQ
[2020-06-15] MEDS: Azithromycin 500 MG TABLET PO (20:13)
[2020-06-15] MEDS: amLODIPine Besylate 5 MG TABLET PO (20:13)
[2020-06-15] MEDS: Atorvastatin Calcium 10 MG TABLET PO (20:13)
[2020-06-15] MEDS: Docusate Sodium 100 MG CAPSULE PO (20:28)
[2020-06-15 20:33] LABS: Anion Gap 29 (12-20); Blood Urea Nitrogen 139 mg/dL (9-16); Calcium 7.8 mg/dL (8.4-10.2); Carbon Dioxide 15 mmol/L (22-29); Chloride 96 mmol/L (96-108); Creatinine Clr Calc Pharmacy 4.8; Estimated Glomerular Filt Rate 3; Glucose Random 257 mg/dL (60-115); Potassium 5.2 mmol/L (3.3-5.1); Sodium 135 mmol/L (135-145)
--- NOTE | 2020-06-15 21:30 | PM.PNNEP ---
Subjective Subjective Date of Service: 06/15/20 Interval history: advanced renal dis ? rpgn Feeling ok Physical Exam Vital Signs: Vital Signs: Last Vital Signs Temp 97.0 F 06/15/20 19:22 Pulse 89 06/15/20 19:22 Resp 20 06/15/20 19:22 BP 150/70 H 06/15/20 20:13 Pulse Ox 96 06/15/20 19:22 Body Mass Index 33.2 Const: General: comfortable Orientation/consciousness: patient oriented x3 Neck: Neck: Yes supple Resp: Auscultation: diminished lung sounds Cardio: Heart sounds: no murmurs and no rubs GI: Auscultation: normal bowel sounds Neuro: General: patient oriented x3 Motor exam (neuro): No Asterixis during motor activity present Objective Data Labs CBC & Chem 7: 06/14/20 06:20 06/15/20 18:45 Labs: Laboratory Results - last 24 hr 06/13/20 06/13/20 06/15/20 06:25 06:25 08:44 Sodium 133 L Potassium 5.9 H Chloride 96 Carbon Dioxide 15 L Anion Gap 28 H BUN 131 H* Creatinine 12.26 H* Estim Creat Clear Calc 4.8 Estimated GFR 3 Random Glucose 178 H D Calcium 7.6 L Lactate Dehydrogenase 305 H Carcinoembryonic Ag 0.60 YOHAN Titer TNP YOHAN Titer 2 TNP YOHAN Titer 3 TNP YOHAN Pattern TNP YOHAN Pattern 2 TNP YOHAN Pattern 3 TNP Complement C3 138 Complement C4 24 06/15/20 06/15/20 08:46 18:45 Sodium Cancelled 135 Potassium Cancelled 5.2 H Chloride Cancelled 96 Carbon Dioxide Cancelled 15 L Anion Gap Cancelled 29 H BUN Cancelled 139 H* Creatinine Cancelled 12.55 H* Estim Creat Clear Calc Cancelled 4.8 Estimated GFR Cancelled 3 Random Glucose Cancelled 257 H D Calcium Cancelled 7.8 L Lactate Dehydrogenase Carcinoembryonic Ag YOHAN Titer YOHAN Titer 2 YOHAN Titer 3 YOHAN Pattern YOHAN Pattern 2 YOHAN Pattern 3 Complement C3 Complement C4 Microbiology Microbiology Results: Microbiology 06/12/20 22:36 Blood - Venous Blood Culture - Preliminary No growth after 48 hours. 06/12/20 22:30 Blood - Venous Blood Culture - Preliminary No growth after 48 hours. 06/13/20 Unknown Urine clean catch - Clean Catch Midstream Urine Culture - Final Assessment & Plan Assessment and plan (1) BILLIE (acute kidney injury): Problem details: BILLIE - RPGN PR3 Positive MPO negative Anti GM pending Compliments C3 and C4 normal Others pending Blood c/s negative URie C/s negative High WBC count due RPGN/Steroids . Afebrile. No active infection Kidney biopsy today Permcarh tomorrow followed by dialysis On pulse steroids- Day 2 today Status: Acute Time Spent With Patient Time: Total time spent is greater than 50% in coordination of care (as documented) at patient's floor/unit and/or counseling patient:
[2020-06-15 22:17] LABS: Hematocrit 30.7 % (37-47); Mean Corpuscular HGB Conc 32.6 g/dl (31.0-35.0); Mean Corpuscular Hemoglobin 27.1 pg (27.0-33.0); Mean Corpuscular Volume 83.2 fL (80-98); Platelet Count 597 X10*3/uL (160-400); Red Blood Count 3.69 X10*6/uL (4.20-5.50); Red Cell Distribution Width 14.6 % (11.0-16.0); White Blood Count 16.5 X10*3/uL (4.8-10.8)
[2020-06-15 22:37] LABS: Osmolality Urine 280 mosm/kg (373-1093)
[2020-06-15 22:39] LABS: Creatinine Urine 28.79 mg/dL
[2020-06-16] VITALS (7 sets, daily range): BP systolic 122–136; BP diastolic 57–76; PULSE 75–97; RESP 18–20; TEMP 36–36.3; O2SAT 94–97; BMI 30.2
[2020-06-16] MEDS: 0.9 % Sodium Chloride Flush 3 ML SYRINGE IVFLUSH ×2 (00:28→16:53)
--- NOTE | 2020-06-16 06:00 | PC.NURSE ---
P.? KAYEXELATE I. NOTIFIED FOR CLARIFICATION OF KAYEX ORDER THIS AM.UPDATED MD THAT PT IS NPO FOR PERMACATH PLACEMENT AND DIALYSIS.ALSO THAT BMP HAS BEEN DRAWN AND AWAITING RESULTS. STATES TO HOLD OFF ON GIVING KAYEX THIS AM AND WAIT FOR AM LABS. E.NEXT SHIFT UPDATED.
[2020-06-16 06:33] LABS: Hematocrit 27.9 % (37-47); Hemoglobin 9.1 g/dl (12.0-16.0)
[2020-06-16 07:34] LABS: Anion Gap 29 (12-20); Blood Urea Nitrogen 147 mg/dL (9-16); Calcium 7.5 mg/dL (8.4-10.2); Carbon Dioxide 14 mmol/L (22-29); Chloride 99 mmol/L (96-108); Creatinine Clr Calc Pharmacy 4.4; Estimated Glomerular Filt Rate 3; Glucose Random 195 mg/dL (60-115); Potassium 5.1 mmol/L (3.3-5.1); Sodium 137 mmol/L (135-145)
[2020-06-16] MEDS: methylPREDNISolone Sod Succ 1,000 MG in 0.9 % Sodium Chloride 50 ML 66 MG IV (08:25)
[2020-06-16 08:41] LABS: CA-125 107 U/mL (<35)
--- NOTE | 2020-06-16 10:49 | HO.RADPN ---
RADIOLOGY Narrative Narrative: Right IJ temporary dialysis catheter placed. Tip in SVC. May use line.
--- NOTE | 2020-06-16 11:43 | P.CDIC_ITS ---
CDI Concurrent Query Service Date: 06/16/20 Documentation Clarification: Please clarify if you are treating a proba ble/suspected/likely or confirmed: Protein calorie malnutrition, mild, moderate or severe Please specify if known- protein calorie malnutrition mild.. Provider Response: Other Other Diagnosis: Mild protein calorie malnutrition PLEASE DO NOT DELETE/MODIFY EXISTING CONTENT Additional information is needed in order to code to the highest accuracy and appropriate Severity of Illness (SOI). Please clarify the information noted below in your progress notes and discharge summary. Risk Factors/Clinical Indicators/Treatments Nutrition assessment - 06/14 - non severe malnourished in the context of chronic ill Cancer weight loss moderately mal w 13% wt loss x 2 mths poor PO X 1 month, mildly depleted subcutaneous fat and muscle mass. CDS: Raquel Mcknight CCS, CDIS Contact Number: [phone] Please Review the information above and exercise your independent professional judgment in responding to the query. If you concur, pleas document in the PROGRESS NOTES and DISCHARGE SUMMARY. If you do not agree with the query, please document in the query above. THIS QUERY IS PART OF THE PERMANENT MEDICAL RECORD
--- NOTE | 2020-06-16 11:54 | MHC.CM.PN ---
Patient is on IV Ceftriaxone and IV Solu-Medrol. Patient had renal biopsy and permacath placed. Patient will start on dialysis. Discharge plan pending PT omer. CM will continue to follow patient for discharge needs.
[2020-06-16 12:16] LABS: CA 27.29 18 U/mL (<38); Carbohydrate Antigen 19-9 22 U/mL (<34)
--- NOTE | 2020-06-16 12:36 | PM.PNNEP ---
Subjective Subjective Date of Service: 06/16/20 Interval history: advanced renal dis ? rpgn Feeling ok Physical Exam Vital Signs: Vital Signs: Last Vital Signs Temp 97 F 06/16/20 10:47 Pulse 88 06/16/20 10:47 Resp 20 06/16/20 10:47 BP 127/60 06/16/20 10:47 Pulse Ox 95 06/16/20 10:47 Body Mass Index 30.2 Const: General: comfortable Orientation/consciousness: patient oriented x3 Neck: Neck: Yes supple Resp: Auscultation: diminished lung sounds Cardio: Heart sounds: no murmurs and no rubs GI: Auscultation: normal bowel sounds Neuro: General: patient oriented x3 Motor exam (neuro): No Asterixis during motor activity present Objective Data Labs CBC & Chem 7: 06/16/20 05:22 06/16/20 05:22 Labs: Laboratory Results - last 24 hr 06/15/20 06/15/20 06/15/20 08:44 08:44 18:45 WBC RBC Hgb Hct MCV MCH MCHC RDW Plt Count MPV Absolute Nucleated RBC Nucleated RBC % (auto) Sodium 135 Potassium 5.2 H Chloride 96 Carbon Dioxide 15 L Anion Gap 29 H BUN 139 H* Creatinine 12.55 H* Estim Creat Clear Calc 4.8 Estimated GFR 3 Random Glucose 257 H D Calcium 7.8 L Carcinoembryonic Ag 0.60 CA 19-9 Antigen 22 CA 27-29 18 CA 125 Antigen 107 H Urine Osmolality Ur Random Sodium Urine Creatinine 06/15/20 06/15/20 06/15/20 21:44 21:59 21:59 WBC 16.5 H RBC 3.69 L Hgb 10.0 L Hct 30.7 L MCV 83.2 MCH 27.1 MCHC 32.6 RDW 14.6 Plt Count 597 H MPV 11.0 Absolute Nucleated RBC 0.000 Nucleated RBC % (auto) 0.0 Sodium Potassium Chloride Carbon Dioxide Anion Gap BUN Creatinine Estim Creat Clear Calc Estimated GFR Random Glucose Calcium Carcinoembryonic Ag CA 19-9 Antigen CA 27-29 CA 125 Antigen Urine Osmolality 280 L Ur Random Sodium 73.0 Urine Creatinine 28.79 06/16/20 06/16/20 05:22 05:22 WBC RBC Hgb 9.1 L Hct 27.9 L MCV MCH MCHC RDW Plt Count MPV Absolute Nucleated RBC Nucleated RBC % (auto) Sodium 137 Potassium 5.1 Chloride 99 Carbon Dioxide 14 L Anion Gap 29 H BUN 147 H* Creatinine 12.85 H* Estim Creat Clear Calc 4.4 Estimated GFR 3 Random Glucose 195 H Calcium 7.5 L Carcinoembryonic Ag CA 19-9 Antigen CA 27-29 CA 125 Antigen Urine Osmolality Ur Random Sodium Urine Creatinine Microbiology Microbiology Results: Microbiology 06/12/20 22:36 Blood - Venous Blood Culture - Preliminary No growth after 48 hours. 06/12/20 22:30 Blood - Venous Blood Culture - Preliminary No growth after 48 hours. 06/13/20 Unknown Urine clean catch - Clean Catch Midstream Urine Culture - Final Assessment & Plan Assessment and plan (1) BILLIE (acute kidney injury): Problem details: BILLIE - RPGN PR3 Positive MPO negative Anti GM pending Compliments C3 and C4 normal Others pending Blood c/s negative Urine C/s negative High WBC count due RPGN/Steroids . Afebrile. No active infection Kidney biopsy 06/15 Results pending s/p IJ line insertion and dialysis today On pulse steroids- Day 3 today Status: Acute Time Spent With Patient Time: Total time spent is greater than 50% in coordination of care (as documented) at patient's floor/unit and/or counseling patient:
[2020-06-16 13:19] LABS: Alanine Aminotransferase 71 U/L (0-31); Albumin Level 2.7 g/dL (3.5-5.0); Aspartate Amino Transferase 35 U/L (5-31); Bilirubin Direct 0.2 mg/dL (0.0-0.5); Bilirubin Total 0.3 mg/dL (0.0-1.0); Total Protein 5.5 g/dL (6.5-8.0)
[2020-06-16 13:20] LABS: Alkaline Phosphatase 135 U/L (39-117)
[2020-06-16 13:31] LABS: Phosphorus 11.8 mg/dL (2.7-4.5)
--- NOTE | 2020-06-16 13:37 | MHC.CLN ---
F/U PT IS MODERATELY MALNOURISHED PT WITH 13% SIG WT LOSS X 2 MONTHS, POOR PO X 1 MONTH AND MILDLY DEPLETED SUBCUTANOUES FAT AND MUSCLE MASS PT RECEPTIVE TO TRIAL OF ENSURE TO INCREASE KCALS (PREFERS LISA FLAVOR) PT REPORTED APPETITE IS IMPROVING SLOWLY DIET RX LOW PHOS, LOW K+ -WILL ADD 2GM NA TO CURRENT DIET PER RENAL R/T HD WILL ADD ENSURE BID MONITOR PO INTAKE SEE ALSO CLINICAL NUTRITION ASSESSMENT
[2020-06-16] MEDS: Omeprazole 20 MG CAPSULE.DR PO (16:53)
[2020-06-16] MEDS: Heparin Sodium,Porcine 5,000 UNIT/ML VIAL 5000 UNIT SUBCUT (17:37)
[2020-06-16 18:05] LABS: Creatinine Urine 32.92 mg/dL; Total Protein Urine Random 18 mg/dL (<12)
--- NOTE | 2020-06-16 19:51 | HO.PM.IMPN ---
Subjective Subjective Date of Service: 07/25/20 Interval History: adavnced renal dis ? rpgn, discussed with Nephrology biopsy shows preliminary question of Anahy disease Review of Systems patient denies any chest pain or shortness of breath or abdominal or fever chills still still feels generalized weak p.o. intak Physical Exam Vital Signs: Vital Signs: Last Vital Signs Temp 97 F 06/16/20 19:12 Pulse 91 06/16/20 19:12 Resp 20 06/16/20 19:12 BP 135/67 06/16/20 19:12 Pulse Ox 94 06/16/20 19:12 Body Mass Index 30.2 Constitutional:: Not in acute distress. Cvs: rrr, [id number] , no murmur res: fair air entry , slightly diminshed at bases. abd: no rebound or guarding ,nt, bs present. ext pulses present , no cyanosis neuro: axo3 , nonfocal. Objective Data Current Medications Generic Name Dose Route Start Last Admin Trade Name Freq PRN Reason Stop Dose Admin Acetaminophen 650 mg 06/13/20 03:35 Acetaminophen 325 Mg Tablet PO Q6H PRN Pain, Mild (Pain Scale 1-3) Al Hydroxide/Mg Hydroxide 30 ml 06/13/20 03:35 Magnesium Hydrox/Alum Hydrox 30 Ml Oral.Susp PO Q4H PRN Heartburn/Nausea Amlodipine Besylate 5 mg 06/13/20 03:35 06/15/20 20:13 Amlodipine Besylate 5 Mg Tablet PO 5 mg BEDTIME MAHAMED Administration Protocol Atorvastatin Calcium 10 mg 06/13/20 03:35 06/15/20 20:13 Atorvastatin Calcium 10 Mg Tablet PO 10 mg BEDTIME MAHAMED Administration Azithromycin 500 mg 06/13/20 21:00 06/15/20 20:13 Azithromycin 500 Mg Tablet PO 500 mg Q24H MAHAMED Administration Docusate Sodium 100 mg 06/13/20 09:00 06/16/20 07:39 Docusate Sodium 100 Mg Capsule PO Not Given BID MAHAMED Heparin Sodium (Porcine) 5,000 unit 06/13/20 06:00 06/16/20 17:37 Heparin Sodium,Porcine 5,000 Unit/Ml Vial SUBCUT 5,000 unit Q12H MAHAMED Administration Ceftriaxone Sodium 1 gm/ 50 mls @ 100 mls/hr 06/13/20 21:00 06/15/20 20:51 Sodium Chloride IV Infused Q24H [facility] Infusion Omeprazole 20 mg 06/14/20 16:30 06/16/20 16:53 Omeprazole 20 Mg Capsule. PO 20 mg BID@0630,5630 [facility] Administration Ondansetron HCl 4 mg 06/13/20 03:35 Ondansetron Hcl 4 Mg/2 Ml Vial IVPUSH Q8H PRN Nausea and Vomiting Sodium Bicarbonate 1,300 mg 06/16/20 09:00 06/16/20 13:25 Sodium Bicarbonate 650 Mg Tablet PO Not Given TID [facility] Sodium Chloride 3 ml 06/13/20 08:00 06/16/20 16:53 0.9 % Sodium Chloride Flush 3 Ml Syringe IVFLUSH 3 ml QSHIFT MAHAMED Administration Labs CBC & Chem 7: 06/21/20 05:22 06/21/20 05:22 Microbiology Microbiology Results: Microbiology 06/12/20 22:36 Blood - Venous Blood Culture - Preliminary No growth after 48 hours. 06/12/20 22:30 Blood - Venous Blood Culture - Preliminary No growth after 48 hours. 06/13/20 Unknown Urine clean catch - Clean Catch Midstream Urine Culture - Final Assessment and Plan (1) BILLIE (acute kidney injury): Status: Acute Assessment and Plan: 69-year-old female with past medical history of HTN, HLD who presents to the hospital with generalized malaise found to have abnormal findings on imaging as well as significant BILLIE. 1.abnormal CT imaging: pneumonia versus lung cancer versus vasculitis patient has abnormal imaging as above has leukocytosis, elevated prolactin,negative COVID-19 PCR, blood culture and urine culture prelim neg she also reports 20-30 lb weight loss in the last 2 months given her leukocytosis, as well as elevated prolactin nephrology has been consulted for her severe BILLIE which recommends thinking of vasculitis as a differential therefore will -ANCA, YOHAN, and complement levels protein is 3 level came positive continue ceftriaxone/azithromycin day4. 2. generalized malaise:- possibly multifactorial secondary to above-mentioned differentials as well as BILLIE: pt/ot 3.BILLIE: Anion gap metabolic acidosis no baseline on file but presents today with significantly elevated BUN and creatinine patient reports low oral intake but endorses adequate fluid intake ? rpgn as serology positive Pr3 : 6.5 pulse iv solumedrol day3,added bicarb p.o. Hyperkalemia: Given Kayexalate p.o.- hyperkalemia improved. Renal biopsy she preliminaries shows question of Khalida disease per Nephro. plan -neohro may add rituximab. 4. elevated troponin- no chest pain, no EKG changes 5. leukocytosis: possibly reactive versus secondary to pneumonia IV antibiotics as above blood culture and urine culture negative 6.hypertension: continue amlodipine DVT prophylaxis:hold Heparin subQ
[2020-06-16] MEDS: Sodium Bicarbonate 650 MG TABLET 1300 MG PO (21:34)
[2020-06-16] MEDS: Atorvastatin Calcium 10 MG TABLET PO (21:35)
[2020-06-16] MEDS: Azithromycin 500 MG TABLET PO (21:35)
[2020-06-16] MEDS: amLODIPine Besylate 5 MG TABLET PO (21:35)
[2020-06-16] MEDS: Docusate Sodium 100 MG CAPSULE PO (21:35)
[2020-06-16] MEDS: cefTRIAXone sodium 1 GM in 0.9 % Sodium Chloride 50 ML IV (21:36)
[2020-06-16 22:42] LABS: Prot Elec - Alpha1 0.8 g/dL (0.2-0.3); Prot Elec - Alpha2 1.1 g/dL (0.5-0.9); Prot Elec - Beta 1 0.3 g/dL (0.4-0.6); Prot Elec - Beta 2 0.4 g/dL (0.2-0.5); Prot Elec - Gamma 0.9 g/dL (0.8-1.7); Prot Elec - Total Protein 5.4 g/dL (6.1-8.1)
[2020-06-16 22:42] LABS: Prot Elec - Alpha1 0.8 g/dL (0.2-0.3); Prot Elec - Alpha2 1.3 g/dL (0.5-0.9); Prot Elec - Beta 1 0.2 g/dL (0.4-0.6); Prot Elec - Beta 2 0.4 g/dL (0.2-0.5); Prot Elec - Total Protein 5.6 g/dL (6.1-8.1)
[2020-06-17] VITALS (9 sets, daily range): BP systolic 128–156; BP diastolic 65–72; PULSE 81–93; RESP 16–20; TEMP 36–36.3; O2SAT 89–97; BMI 29.6
[2020-06-17] MEDS: 0.9 % Sodium Chloride Flush 3 ML SYRINGE IVFLUSH ×4 (00:27→20:32)
[2020-06-17] MEDS: Heparin Sodium,Porcine 5,000 UNIT/ML VIAL 5000 UNIT SUBCUT ×2 (06:10→17:44)
[2020-06-17] MEDS: Omeprazole 20 MG CAPSULE.DR PO ×2 (06:10→17:44)
[2020-06-17 07:06] LABS: Hematocrit 27.6 % (37-47); Hemoglobin 9.1 g/dl (12.0-16.0); Mean Corpuscular Hemoglobin 27.3 pg (27.0-33.0); Mean Corpuscular Volume 82.9 fL (80-98); Mean Platelet Volume 10.4 fL (9.4-12.3); NRBC Pct Auto 0.2 /100WBC (0.0-0.2); Platelet Count 504 X10*3/uL (160-400); Red Blood Count 3.33 X10*6/uL (4.20-5.50); Red Cell Distribution Width 14.8 % (11.0-16.0)
[2020-06-17 07:52] LABS: Anion Gap 25 (12-20); Blood Urea Nitrogen 93 mg/dL (9-16); Carbon Dioxide 17 mmol/L (22-29); Chloride 101 mmol/L (96-108); Creatinine Clr Calc Pharmacy 6.5; Estimated Glomerular Filt Rate 5; Glucose Random 149 mg/dL (60-115); Potassium 4.6 mmol/L (3.3-5.1); Sodium 138 mmol/L (135-145)
--- NOTE | 2020-06-17 07:53 | PM.PNNEP ---
Subjective Subjective Date of Service: 06/17/20 Interval history: Events noted Had first HD yesterday Tolerated Ordered Rituximab yesterday. Physical Exam Vital Signs: Vital Signs: Last Vital Signs Temp 97 F 06/17/20 07:01 Pulse 83 06/17/20 07:01 Resp 20 06/17/20 07:01 BP 131/65 06/17/20 07:01 Pulse Ox 94 06/17/20 07:01 Body Mass Index 29.6 Const: General: comfortable Orientation/consciousness: patient oriented x3 Neck: Neck: Yes supple Resp: Auscultation: diminished lung sounds Cardio: Heart sounds: no murmurs and no rubs GI: Auscultation: normal bowel sounds Neuro: General: patient oriented x3 Motor exam (neuro): No Asterixis during motor activity present Objective Data Labs CBC & Chem 7: 06/17/20 06:53 06/17/20 06:53 Labs: Laboratory Results - last 24 hr 06/14/20 06/15/20 06/15/20 12:30 08:44 08:44 WBC RBC Hgb Hct MCV MCH MCHC RDW Plt Count MPV Absolute Nucleated RBC Nucleated RBC % (auto) Sodium Potassium Chloride Carbon Dioxide Anion Gap BUN Creatinine Estim Creat Clear Calc Estimated GFR Random Glucose Calcium Phosphorus Total Bilirubin Direct Bilirubin AST ALT Alkaline Phosphatase Total Protein Total Protein (PEP) 5.4 L 5.6 L Albumin Albumin (PEP) 2.0 L 2.0 L Zotgd-7-Rzyfonvzu 0.8 H 0.8 H Qbbdc-3-Uvkyhwnhh 1.1 H 1.3 H Rqcq-2-Iprogdus 0.3 L 0.2 L Skkr-1-Pygdiuhp 0.4 0.4 Gamma Globulins 0.9 1.0 PEP Interpretation SEE NOTE SEE NOTE CA 19-9 Antigen 22 CA 27-29 18 CA 125 Antigen 107 H U Random Total Protein Urine Creatinine 06/16/20 06/16/20 06/17/20 05:22 Unknown 06:53 WBC 18.0 H RBC 3.33 L Hgb 9.1 L Hct 27.6 L MCV 82.9 MCH 27.3 MCHC 33.0 RDW 14.8 Plt Count 504 H MPV 10.4 Absolute Nucleated RBC 0.030 H Nucleated RBC % (auto) 0.2 Sodium Potassium Chloride Carbon Dioxide Anion Gap BUN Creatinine Estim Creat Clear Calc Estimated GFR Random Glucose Calcium Phosphorus 11.8 H Total Bilirubin 0.3 Direct Bilirubin 0.2 AST 35 H ALT 71 H Alkaline Phosphatase 135 H D Total Protein 5.5 L Total Protein (PEP) Albumin 2.7 L Albumin (PEP) Jdlqa-4-Qplteuctt Blbvc-9-Wjfzbckpf Twoe-3-Lwahuueu Feas-5-Uucmsdmu Gamma Globulins PEP Interpretation CA 19-9 Antigen CA 27-29 CA 125 Antigen U Random Total Protein 18 H Urine Creatinine 32.92 06/17/20 06:53 WBC RBC Hgb Hct MCV MCH MCHC RDW Plt Count MPV Absolute Nucleated RBC Nucleated RBC % (auto) Sodium 138 Potassium 4.6 Chloride 101 Carbon Dioxide 17 L Anion Gap 25 H BUN 93 H* D Creatinine 8.70 H* Estim Creat Clear Calc 6.5 Estimated GFR 5 Random Glucose 149 H Calcium 8.0 L D Phosphorus Total Bilirubin Direct Bilirubin AST ALT Alkaline Phosphatase Total Protein Total Protein (PEP) Albumin Albumin (PEP) Jqfoq-8-Mdrtgkihk Kgntu-3-Rtwrmfbza Mbvj-6-Octnjmmw Wqvv-4-Trvwjkwo Gamma Globulins PEP Interpretation CA 19-9 Antigen CA 27-29 CA 125 Antigen U Random Total Protein Urine Creatinine Microbiology Microbiology Results: Microbiology 06/12/20 22:36 Blood - Venous Blood Culture - Preliminary No growth after 48 hours. 06/12/20 22:30 Blood - Venous Blood Culture - Preliminary No growth after 48 hours. 06/13/20 Unknown Urine clean catch - Clean Catch Midstream Urine Culture - Final Assessment & Plan Assessment and plan (1) BILLIE (acute kidney injury): Problem details: BILLIE - RPGN PR3 Positive MPO negative Anti GM pending Compliments C3 and C4 normal Others pending Blood c/s negative Urine C/s negative High WBC count due RPGN/Steroids . Afebrile. 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
[2020-06-17 08:43] LABS: Procalcitonin 0.66 ng/mL
[2020-06-17 09:19] LABS: HBS Num1 0.43 mIU/mL (0-7.99); HBsAGNum1 0.41 S/CO (0.00-0.99); Hepatitis B Surface Antigen Negative (Negative); ~Hepatitis B Surface Antibody NONREACTIVE (Nonreactive)
[2020-06-17 09:32] LABS: HBc Num1 0.07 S/CO (0.00-0.79); Hepatitis B Core Antibody Nonreactive (Nonreactive); ~HepC Num1 0.07 S/CO (0.00-0.79); ~Hepatitis C Antibody Nonreactive (Nonreactive)
[2020-06-17] MEDS: predniSONE 20 MG TABLET 60 MG PO (09:38)
[2020-06-17] MEDS: Sodium Bicarbonate 650 MG TABLET 1300 MG PO ×3 (09:38→20:27)
--- NOTE | 2020-06-17 10:13 | P.PNPL_ITS ---
Subjective Subjective Date of Service: 06/17/20 Principal diagnosis: PNEUMONIA/ LUNG MASSES Interval history: THIS 69 YEARS OLD VERY PLEASANT FEMALE IS DOING WELL FROM PULMONARY POINT OF VIEW . SHE REMAINS AFEBRILE HAS VERY LITTLE COUGH OR SHORTNESS OF BREATH AND DEFINITELY NO RESPIRATORY DISTRESS. SHE IS DOING OKAY ON ROOM AIR. THE RENAL WORKUP INCLUDING RENAL BIOPSY, IS POSITIVE FOR NECROTIZING GRANULOMATOSIS. AND IT APPEARS THAT HER MASS IS IN THE LUNGS ON BOTH SIDES OR PART OF THE SAME DISEASE, ANAHY'S GRANANULOMATOSIS AND NOT DUE TO INFECTIOUS PROCESS. PATIENT FEELS BETTER ALREADY WITH DIALYSIS AND ALSO PULSE STEROID THERAPY. SHE WILL BE ON PREDNISONE DIRECTED BY THE RENAL SPECIALISTS. Objective Data Labs CBC & Chem 7: 06/17/20 06:53 06/17/20 06:53 Labs: Laboratory Results - last 24 hr 06/14/20 06/15/20 06/15/20 12:30 08:44 08:44 WBC RBC Hgb Hct MCV MCH MCHC RDW Plt Count MPV Absolute Nucleated RBC Nucleated RBC % (auto) Sodium Potassium Chloride Carbon Dioxide Anion Gap BUN Creatinine Estim Creat Clear Calc Estimated GFR Random Glucose Calcium Phosphorus Total Bilirubin Direct Bilirubin AST ALT Alkaline Phosphatase Total Protein Total Protein (PEP) 5.4 L 5.6 L Albumin Albumin (PEP) 2.0 L 2.0 L Lxysp-0-Eqtfaxnqh 0.8 H 0.8 H Ogdxh-7-Zrscwlfti 1.1 H 1.3 H Doty-4-Pveheavk 0.3 L 0.2 L Kqyi-8-Fcqlyxgq 0.4 0.4 Gamma Globulins 0.9 1.0 PEP Interpretation SEE NOTE SEE NOTE CA 19-9 Antigen 22 CA 27-29 18 Procalcitonin U Random Total Protein Urine Creatinine Hep Bs Antigen Hep Bs Antibody Hep B Core Total Ab Hepatitis C Ab (EIA) 06/16/20 06/16/20 06/16/20 05:22 16:36 Unknown WBC RBC Hgb Hct MCV MCH MCHC RDW Plt Count MPV Absolute Nucleated RBC Nucleated RBC % (auto) Sodium Potassium Chloride Carbon Dioxide Anion Gap BUN Creatinine Estim Creat Clear Calc Estimated GFR Random Glucose Calcium Phosphorus 11.8 H Total Bilirubin 0.3 Direct Bilirubin 0.2 AST 35 H ALT 71 H Alkaline Phosphatase 135 H D Total Protein 5.5 L Total Protein (PEP) Albumin 2.7 L Albumin (PEP) Xcwke-5-Zliizoqox Aenit-6-Ahoclnjwb Cyyn-7-Wdwletab Tycs-6-Yynzgixk Gamma Globulins PEP Interpretation CA 19-9 Antigen CA 27-29 Procalcitonin U Random Total Protein 18 H Urine Creatinine 32.92 Hep Bs Antigen Negative Hep Bs Antibody NONREACTIVE Hep B Core Total Ab Nonreactive Hepatitis C Ab (EIA) Nonreactive 06/17/20 06/17/20 06/17/20 06:53 06:53 06:53 WBC 18.0 H RBC 3.33 L Hgb 9.1 L Hct 27.6 L MCV 82.9 MCH 27.3 MCHC 33.0 RDW 14.8 Plt Count 504 H MPV 10.4 Absolute Nucleated RBC 0.030 H Nucleated RBC % (auto) 0.2 Sodium 138 Potassium 4.6 Chloride 101 Carbon Dioxide 17 L Anion Gap 25 H BUN 93 H* D Creatinine 8.70 H* Estim Creat Clear Calc 6.5 Estimated GFR 5 Random Glucose 149 H Calcium 8.0 L D Phosphorus Total Bilirubin Direct Bilirubin AST ALT Alkaline Phosphatase Total Protein Total Protein (PEP) Albumin Albumin (PEP) Xrdby-3-Zyionwecz Rxzal-4-Adtosvqye Tpia-1-Sltbiyxg Oujo-5-Phogvuxv Gamma Globulins PEP Interpretation CA 19-9 Antigen CA 27-29 Procalcitonin 0.66 U Random Total Protein Urine Creatinine Hep Bs Antigen Hep Bs Antibody Hep B Core Total Ab Hepatitis C Ab (EIA) Microbiology Microbiology Results: Microbiology 06/12/20 22:36 Blood - Venous Blood Culture - Preliminary No growth after 48 hours. 06/12/20 22:30 Blood - Venous Blood Culture - Preliminary No growth after 48 hours. 06/13/20 Unknown Urine clean catch - Clean Catch Midstream Urine Culture - Final Physical Exam Vital Signs: Vital Signs: Last Vital Signs Temp 97 F 06/17/20 07:01 Pulse 83 06/17/20 07:01 Resp 20 06/17/20 07:01 BP 131/65 06/17/20 07:01 Pulse Ox 94 06/17/20 07:01 Body Mass Index 29.6 Const: Other: PATIENT LOOKS VERY COMFORTABLE, SHE HAS NO RESPIRATORY DISTRESS. Resp: Other: JUST AUSCULTATION WHEELS GOOD BREATH SOUNDS ON BOTH SIDES AND NO DEFINITE CREPITATIONS OR WHEEZES. Assessment and Plan Assessment and plan (1) Anahy's granulomatosis: Problem details: THIS SEEMS TO BE THE MOST LIKELY CAUSE OF THE ROUNDED MASSES IN BOTH LUNGS, AND GOES ALONG WITH THE FINDING OF NECROTIZING GRANULOMATOSIS ON THE RENAL BIOPSY. CONTINUE TO TREAT WITH PREDNISONE PER DIRECTED BY E RENAL SERVICE. Status: Acute (2) Lung mass: Problem details: ABOVE UNDER HACKING NURSE GRANULOMATOSIS. WHICH SHOULD DO A REPEAT CHEST X-RAY TO MAKE SURE THAT THE NODULAR DENSITIES OR RESOLVED. Status: Acute (3) Pneumonia: Problem details: I DO NOT THINK SHE HAS ACTIVE BACTERIAL INFECTION, THE OWN DID DENSITIES WHICH APPEAR LIKE PNEUMONIA OR MOST LIKELY DUE TO GRANULOMATOSIS. I WOULD TO RECOMMEND TO STOP ANTIBIOTICS AT THIS TIME. Status: Acute Time Spent With Patient Time: Total time spent is greater than 50% in coordination of care (as d ocumented) at patient's floor/unit and/or counseling patient: Time with patient: 15 - 24 minutes
[2020-06-17 12:16] LABS: Anti Glomerular Basement Memb <1.0 AI
--- NOTE | 2020-06-17 13:53 | P.PNIM_ITS ---
Subjective Subjective Date of Service: 06/17/20 Interval History: Going to HD today No complaints other than mild dry cough Physical Exam 2 Vital Signs: Vital Signs: Last Vital Signs Temp 96.8 F 06/17/20 10:54 Pulse 81 06/17/20 10:54 Resp 20 06/17/20 10:54 BP 138/72 06/17/20 10:54 Pulse Ox 97 06/17/20 10:54 Body Mass Index 29.6 Gen: in no acute distress HEENT: sclera anicteric, moist mucus membranes Neck: RIJ HD catheter Lungs: good air entry, inspiratory crackles at bases bilaterally Heart: regular rate and rhythm, no murmurs Abd: soft, non-tender, non-distended Ext: no edema Skin: warm/well-perfused Neuro: alert and oriented x3, no focal findings Psych: appropriate affect Objective Data Current Medications Generic Name Dose Route Start Last Admin Trade Name Freq PRN Reason Stop Dose Admin Acetaminophen 650 mg 06/13/20 03:35 Acetaminophen 325 Mg Tablet PO Q6H PRN Pain, Mild (Pain Scale 1-3) Al Hydroxide/Mg Hydroxide 30 ml 06/13/20 03:35 Magnesium Hydrox/Alum Hydrox 30 Ml Oral.Susp PO Q4H PRN Heartburn/Nausea Amlodipine Besylate 5 mg 06/13/20 03:35 06/16/20 21:35 Amlodipine Besylate 5 Mg Tablet PO 5 mg BEDTIME MAHAMED Administration Protocol Atorvastatin Calcium 10 mg 06/13/20 03:35 06/16/20 21:35 Atorvastatin Calcium 10 Mg Tablet PO 10 mg BEDTIME MAHAMED Administration Azithromycin 500 mg 06/13/20 21:00 06/16/20 21:35 Azithromycin 500 Mg Tablet PO 500 mg Q24H MAHAMED Administration Docusate Sodium 100 mg 06/13/20 09:00 06/17/20 09:38 Docusate Sodium 100 Mg Capsule PO Not Given BID MAHAMED Heparin Sodium (Porcine) 5,000 unit 06/13/20 06:00 06/17/20 06:10 Heparin Sodium,Porcine 5,000 Unit/Ml Vial SUBCUT 5,000 unit Q12H MAHAMED Administration Ceftriaxone Sodium 1 gm/ 50 mls @ 100 mls/hr 06/13/20 21:00 06/16/20 22:13 Sodium Chloride IV Infused Q24H MAHAMED Infusion Rituximab 500 mg/ Rituximab 325 mls @ 0 mls/hr 06/17/20 00:00 250 mg/ Sodium Chloride IV 06/17/20 23:59 ONCE MAHAMED Protocol As Directed Omeprazole 20 mg 06/14/20 16:30 06/17/20 06:10 Omeprazole 20 Mg Capsule. PO 20 mg BID@0630,1630 MAHAMED Administration Ondansetron HCl 4 mg 06/13/20 03:35 Ondansetron Hcl 4 Mg/2 Ml Vial IVPUSH Q8H PRN Nausea and Vomiting Prednisone 60 mg 06/17/20 09:00 06/17/20 09:38 Prednisone 20 Mg Tablet PO 60 mg DAILY MAHAMED Administration Sodium Bicarbonate 1,300 mg 06/16/20 09:00 06/17/20 09:38 Sodium Bicarbonate 650 Mg Tablet PO 1,300 mg TID MAHAMED Administration Sodium Chloride 3 ml 06/13/20 08:00 06/17/20 09:38 0.9 % Sodium Chloride Flush 3 Ml Syringe IVFLUSH 3 ml QSHIFT MAHAMED Administration Labs CBC & Chem 7: 06/17/20 06:53 06/17/20 06:53 Labs: Laboratory Results - last 24 hr 06/14/20 06/15/20 06/15/20 12:30 08:44 08:44 WBC RBC Hgb Hct MCV MCH MCHC RDW Plt Count MPV Absolute Nucleated RBC Nucleated RBC % (auto) Sodium Potassium Chloride Carbon Dioxide Anion Gap BUN Creatinine Estim Creat Clear Calc Estimated GFR Random Glucose Calcium Total Protein (PEP) 5.4 L 5.6 L Albumin (PEP) 2.0 L 2.0 L Igrdz-9-Tvhevcfgu 0.8 H 0.8 H Ayijb-5-Fyjqisesc 1.1 H 1.3 H Bqpp-4-Httobnga 0.3 L 0.2 L Smpr-0-Dntlpvaf 0.4 0.4 Gamma Globulins 0.9 1.0 PEP Interpretation SEE NOTE SEE NOTE Procalcitonin U Random Total Protein Urine Creatinine Glomerular Base Memb Ab <1.0 Hep Bs Antigen Hep Bs Antibody Hep B Core Total Ab Hepatitis C Ab (EIA) 06/16/20 06/16/20 06/17/20 16:36 Unknown 06:53 WBC 18.0 H RBC 3.33 L Hgb 9.1 L Hct 27.6 L MCV 82.9 MCH 27.3 MCHC 33.0 RDW 14.8 Plt Count 504 H MPV 10.4 Absolute Nucleated RBC 0.030 H Nucleated RBC % (auto) 0.2 Sodium Potassium Chloride Carbon Dioxide Anion Gap BUN Creatinine Estim Creat Clear Calc Estimated GFR Random Glucose Calcium Total Protein (PEP) Albumin (PEP) Sexnh-2-Kkthxshnr Iipsa-5-Xvbgfjbyp Kego-5-Twsdhnot Jvcu-7-Usiaapmq Gamma Globulins PEP Interpretation Procalcitonin U Random Total Protein 18 H Urine Creatinine 32.92 Glomerular Base Memb Ab Hep Bs Antigen Negative Hep Bs Antibody NONREACTIVE Hep B Core Total Ab Nonreactive Hepatitis C Ab (EIA) Nonreactive 06/17/20 06/17/20 06:53 06:53 WBC RBC Hgb Hct MCV MCH MCHC RDW Plt Count MPV Absolute Nucleated RBC Nucleated RBC % (auto) Sodium 138 Potassium 4.6 Chloride 101 Carbon Dioxide 17 L Anion Gap 25 H BUN 93 H* D Creatinine 8.70 H* Estim Creat Clear Calc 6.5 Estimated GFR 5 Random Glucose 149 H Calcium 8.0 L D Total Protein (PEP) Albumin (PEP) Pwncl-5-Anwbiagbv Nvrrj-3-Epzssjyao Lmrv-1-Ogufbmgn Dziq-1-Rtvnozxo Gamma Globulins PEP Interpretation Procalcitonin 0.66 U Random Total Protein Urine Creatinine Glomerular Base Memb Ab Hep Bs Antigen Hep Bs Antibody Hep B Core Total Ab Hepatitis C Ab (EIA) Microbiology Microbiology Results: Microbiology 06/12/20 22:36 Blood - Venous Blood Culture - Preliminary No growth after 48 hours. 06/12/20 22:30 Blood - Venous Blood Culture - Preliminary No growth after 48 hours. 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 metastases vs. granulomatosis with polyangiitis - ceftriaxone/azithromycin d#07/14, BCx negative, trend PCT - repeat CT chest 06/19 or 06/20 and if infiltrates improved, will cancel CT- guided biopsy # leukocytosis - suspect due to vasculitis/steroids # troponin elevation - no angina or EKG changes, likely due to renal insufficiency # HTN - continue amlodipine # HLD - continue statin # VTE ppx - UFH
--- NOTE | 2020-06-17 16:53 | PC.NURSE ---
Patients mannitol given by dialysis nurse
[2020-06-17] MEDS: diphenhydrAMINE HCL 25 MG TABLET 50 MG PO (20:00)
[2020-06-17] MEDS: Acetaminophen 325 MG TABLET 650 MG PO (20:00)
[2020-06-17] MEDS: Azithromycin 500 MG TABLET PO (20:27)
[2020-06-17] MEDS: amLODIPine Besylate 5 MG TABLET PO (20:28)
[2020-06-17] MEDS: Docusate Sodium 100 MG CAPSULE PO (20:28)
[2020-06-17] MEDS: Atorvastatin Calcium 10 MG TABLET PO (20:28)
--- NOTE | 2020-06-17 21:18 | PC.NURSE ---
Patient is tolerating Rituxan titration infusion, medicated with Tylenol an Benadryl prior the start of the Rituxan .No sob ,no n/v ,no dizziness ,no rash ,no muscle aches ,no skin flushing. Cardiac rhythm sinus rhythm 70's
--- NOTE | 2020-06-17 21:55 | PC.NURSE ---
oxygen saturation 92%on room while awake, when pt is sleeping o2sat goes down to 89% on room air. Oxygen 2liters via NC applied. O2 sat 95% on 2liters while awake
--- NOTE | 2020-06-17 23:59 | PC.NURSE ---
pt tolerated infusion of rituximab iv per protocol well. 2349 increased to max dose of 168ml/h or 400mg/h per titration protocol. infusion complete @ 2355. denies any nausea hot flash, pain or discomfort. thought the room was slightly warm , room temperature adjusted. vss @ 2345 97.6, 84, 18 145/63 92% on 2L n/c no respiratory distress. nsr on monitor. asymptomatic
[2020-06-18] VITALS (7 sets, daily range): BP systolic 123–156; BP diastolic 54–71; PULSE 66–85; RESP 16–18; TEMP 36.4–36.7; O2SAT 92–95; BMI 29.0
--- NOTE | 2020-06-18 01:19 | PC.NURSE ---
0100 pt continues to deny discomfort, remains asymptomatic s/p chemo infusion. laying on right side with eyes closed resting. resps easy/regular. nsr on monitor.
[2020-06-18] MEDS: Heparin Sodium,Porcine 5,000 UNIT/ML VIAL 5000 UNIT SUBCUT ×2 (03:55→17:46)
[2020-06-18] MEDS: Omeprazole 20 MG CAPSULE.DR PO ×2 (03:56→15:39)
[2020-06-18 07:54] LABS: MANUAL DIFF FLAG NO
[2020-06-18 07:59] LABS: Basophils Percent Auto 0.2 % (0-2); Hematocrit 24.5 % (37-47); Imm Gran Abs Auto 0.61 X10*3/uL (0.00-0.03); Imm Gran Pct Auto 3.5 % (0.0-0.4); Lymphocytes Absolute Auto 1.1 X10*3/uL (1.2-4.9); Lymphocytes Percent Auto 6.1 % (20-40); Mean Corpuscular HGB Conc 32.7 g/dl (31.0-35.0); Mean Corpuscular Hemoglobin 27.6 pg (27.0-33.0); Mean Corpuscular Volume 84.5 fL (80-98); Monocytes Percent Auto 5.7 % (2-11); NRBC Pct Auto 0.2 /100WBC (0.0-0.2); Neutrophils Absolute Auto 14.8 X10*3/uL (2.0-8.3); Neutrophils Percent Auto 84.5 % (45-73); Platelet Count 422 X10*3/uL (160-400); Red Cell Distribution Width 15.2 % (11.0-16.0); White Blood Count 17.5 X10*3/uL (4.8-10.8)
[2020-06-18] MEDS: Sodium Bicarbonate 650 MG TABLET 1300 MG PO ×3 (08:11→20:03)
[2020-06-18] MEDS: predniSONE 20 MG TABLET 60 MG PO (08:11)
[2020-06-18] MEDS: 0.9 % Sodium Chloride Flush 3 ML SYRINGE IVFLUSH ×3 (08:11→20:05)
[2020-06-18 08:39] LABS: Calcium 7.7 mg/dL (8.4-10.2)
[2020-06-18 08:43] LABS: Alanine Aminotransferase 77 U/L (0-31); Albumin Level 2.6 g/dL (3.5-5.0); Alkaline Phosphatase 109 U/L (39-117); Anion Gap 19 (12-20); Aspartate Amino Transferase 40 U/L (5-31); Bilirubin Total 0.2 mg/dL (0.0-1.0); Blood Urea Nitrogen 48 mg/dL (9-16); Carbon Dioxide 20 mmol/L (22-29); Chloride 104 mmol/L (96-108); Creatinine Clr Calc Pharmacy 11.5; Estimated Glomerular Filt Rate 9; Glucose Random 138 mg/dL (60-115); Sodium 139 mmol/L (135-145)
--- NOTE | 2020-06-18 16:05 | P.PNIM_ITS ---
Subjective Subjective Date of Service: 06/18/20 Interval History: feeling well, minimal cough, no dyspnea Physical Exam Vital Signs: Vital Signs: Last Vital Signs Temp 97.7 F 06/18/20 15:21 Pulse 81 06/18/20 15:21 Resp 18 06/18/20 15:21 BP 144/54 H 06/18/20 15:21 Pulse Ox 92 06/18/20 15:21 Body Mass Index 29.0 Gen: in no acute distress HEENT: sclera anicteric, moist mucus membranes Neck: RIJ HD catheter Lungs: good air entry, inspiratory crackles at bases bilaterally Heart: regular rate and rhythm, no murmurs Abd: soft, non-tender, non-distended Ext: no edema Skin: warm/well-perfused Neuro: alert and oriented x3, no focal findings Psych: appropriate affect Objective Data Current Medications Generic Name Dose Route Start Last Admin Trade Name Freq PRN Reason Stop Dose Admin Acetaminophen 650 mg 06/13/20 03:35 06/17/20 20:00 Acetaminophen 325 Mg Tablet PO 650 mg Q6H PRN Administration Pain, Mild (Pain Scale 1-3) Al Hydroxide/Mg Hydroxide 30 ml 06/13/20 03:35 Magnesium Hydrox/Alum Hydrox 30 Ml Oral.Susp PO Q4H PRN Heartburn/Nausea Amlodipine Besylate 5 mg 06/13/20 03:35 06/17/20 20:28 Amlodipine Besylate 5 Mg Tablet PO 5 mg BEDTIME MAHAMED Administration Protocol Atorvastatin Calcium 10 mg 06/13/20 03:35 06/17/20 20:28 Atorvastatin Calcium 10 Mg Tablet PO 10 mg BEDTIME MAHAMED Administration Azithromycin 500 mg 06/13/20 21:00 06/17/20 20:27 Azithromycin 500 Mg Tablet PO 500 mg Q24H MAHAMED Administration Docusate Sodium 100 mg 06/13/20 09:00 06/18/20 08:11 Docusate Sodium 100 Mg Capsule PO Not Given BID MAHAMED Heparin Sodium (Porcine) 5,000 unit 06/13/20 06:00 06/18/20 03:55 Heparin Sodium,Porcine 5,000 Unit/Ml Vial SUBCUT 5,000 unit Q12H MAHAMED Administration Ceftriaxone Sodium 1 gm/ 50 mls @ 100 mls/hr 06/13/20 21:00 06/17/20 23:36 Sodium Chloride IV Not Given Q24H MAHAMED Omeprazole 20 mg 06/14/20 16:30 06/18/20 15:39 Omeprazole 20 Mg Capsule. PO 20 mg BID@6639,3890 MAHAMED Administration Ondansetron HCl 4 mg 06/13/20 03:35 Ondansetron Hcl 4 Mg/2 Ml Vial IVPUSH Q8H PRN Nausea and Vomiting Prednisone 60 mg 06/17/20 09:00 06/18/20 08:11 Prednisone 20 Mg Tablet PO 60 mg DAILY MAHAMED Administration Sodium Bicarbonate 1,300 mg 06/16/20 09:00 06/18/20 15:39 Sodium Bicarbonate 650 Mg Tablet PO 1,300 mg TID MAHAMED Administration Sodium Chloride 3 ml 06/13/20 08:00 06/18/20 15:39 0.9 % Sodium Chloride Flush 3 Ml Syringe IVFLUSH 3 ml QSHIFT MAHAMED Administration Labs CBC & Chem 7: 06/18/20 07:00 06/18/20 07:00 Microbiology Microbiology Results: Microbiology 06/12/20 22:36 Blood - Venous Blood Culture - Final No growth after 5 days. 06/12/20 22:30 Blood - Venous Blood Culture - Final No growth after 5 days. 06/13/20 Unknown Urine clean catch - Clean Catch Midstream Urine Culture - Final Assessment and Plan (1) BILLIE (acute kidney injury): Status: Acute Assessment and Plan: hospital d#6 69yo F with HTN, HLD, presenting with malaise, weight loss, and dry cough admitted for BILLIE and multifocal lung infiltrates, found to have RPGN, PR3-ANCA positive, suspicious for granulomatosis with polyangiitis # BILLIE - s/p renal biopsy 06/15/20, HD again tomorrow, continue bicarbonate supplementation, Nephrology following. will need to exchange Kye for tunnel cath tomorrow. anti-GBM neg # granulomatosis with polyangiitis - induction therapy: s/p pulse steroids x3d, on prednisone 60 mg/d now, got rituximab yesterday # hyperK - resolved # multifocal pulmonary infiltrates, pneumonia vs. metastases vs. granulomatosis with polyangiitis - ceftriaxone/azithromycin d#6/, BCx negative, trend PCT - repeat CT chest 06/19 or 06/20 and if infiltrates improved, will cancel CT- guided biopsy # leukocytosis - suspect due to vasculitis/steroids # troponin elevation - no angina or EKG changes, likely due to renal insufficiency # HTN - continue amlodipine # HLD - continue statin # VTE ppx - UFH
--- NOTE | 2020-06-18 17:21 | PM.PNNEP ---
Subjective Subjective Date of Service: 06/18/20 Principal diagnosis: PNEUMONIA/ LUNG MASSES Interval history: Events noted , minimal cough, no dyspnea No hematuria Urine Output has increased Has had 2 HD thus far Physical Exam Vital Signs: Vital Signs: Last Vital Signs Temp 97.7 F 06/18/20 15:21 Pulse 81 06/18/20 15:21 Resp 18 06/18/20 15:21 BP 144/54 H 06/18/20 15:21 Pulse Ox 92 06/18/20 15:21 Body Mass Index 29.0 Const: General: comfortable Orientation/consciousness: patient oriented x3 Neck: Neck: Yes supple Resp: Auscultation: diminished lung sounds Cardio: Heart sounds: no murmurs and no rubs GI: Auscultation: normal bowel sounds Neuro: General: patient oriented x3 Motor exam (neuro): no asterixis Objective Data Labs CBC & Chem 7: 06/18/20 07:00 06/18/20 07:00 Labs: Laboratory Results - last 24 hr 06/14/20 06/15/20 06/18/20 12:30 08:44 07:00 WBC 17.5 H RBC 2.90 L Hgb 8.0 L Hct 24.5 L MCV 84.5 MCH 27.6 MCHC 32.7 RDW 15.2 Plt Count 422 H MPV 11.0 Immature Gran % (Auto) 3.5 H Neut % (Auto) 84.5 H Lymph % (Auto) 6.1 L [place] % (Auto) 5.7 Eos % (Auto) 0.0 Baso % (Auto) 0.2 Lymph # (Auto) 1.1 L [place] # (Auto) 1.0 Eos # (Auto) 0.0 Baso # (Auto) 0.0 Abs Immat Gran (auto) 0.61 H Absolute Neuts (auto) 14.8 H Absolute Nucleated RBC 0.040 H Nucleated RBC % (auto) 0.2 Sodium Potassium Chloride Carbon Dioxide Anion Gap BUN Creatinine Estim Creat Clear Calc Estimated GFR Random Glucose Calcium Phosphorus Total Bilirubin AST ALT Alkaline Phosphatase Total Protein Albumin Abnorm Protein Band 1 TNP TNP Abnorm Protein Band 2 TNP TNP Abnorm Protein Band 3 TNP TNP 06/18/20 07:00 WBC RBC Hgb Hct MCV MCH MCHC RDW Plt Count MPV Immature Gran % (Auto) Neut % (Auto) Lymph % (Auto) [place] % (Auto) Eos % (Auto) Baso % (Auto) Lymph # (Auto) [place] # (Auto) Eos # (Auto) Baso # (Auto) Abs Immat Gran (auto) Absolute Neuts (auto) Absolute Nucleated RBC Nucleated RBC % (auto) Sodium 139 Potassium 4.0 Chloride 104 Carbon Dioxide 20 L Anion Gap 19 BUN 48 H Creatinine 4.88 H* Estim Creat Clear Calc 11.5 Estimated GFR 9 Random Glucose 138 H Calcium 7.7 L Phosphorus 6.0 H Total Bilirubin 0.2 AST 40 H ALT 77 H Alkaline Phosphatase 109 Total Protein 5.0 L Albumin 2.6 L Abnorm Protein Band 1 Abnorm Protein Band 2 Abnorm Protein Band 3 Microbiology Microbiology Results: Microbiology 06/12/20 22:36 Blood - Venous Blood Culture - Final No growth after 5 days. 06/12/20 22:30 Blood - Venous Blood Culture - Final No growth after 5 days. 06/13/20 Unknown Urine clean catch - Clean Catch Midstream Urine Culture - Final Assessment & Plan Assessment and plan (1) BILLIE (acute kidney injury): Problem details: BILLIE - RPGN PR3 Positive MPO negative Anti GM Negative Compliments C3 and C4 normal Others pending Blood c/s negative Urine C/s negative High WBC count due RPGN/Steroids . Afebrile. 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 Check CT scan and follow HCT will start Epogen Will need out patient dialysis and I shall arrange at [place] dialysis Status: Acute Time Spent With Patient Time: Total time spent is greater than 50% in coordination of care (as documented) at patient's floor/unit and/or counseling patient:
[2020-06-18] MEDS: cefTRIAXone sodium 1 GM in 0.9 % Sodium Chloride 50 ML IV (20:02)
[2020-06-18] MEDS: Azithromycin 500 MG TABLET PO (20:04)
[2020-06-18] MEDS: amLODIPine Besylate 5 MG TABLET PO (20:04)
[2020-06-18] MEDS: Atorvastatin Calcium 10 MG TABLET PO (20:04)
[2020-06-19] VITALS (8 sets, daily range): BP systolic 140–164; BP diastolic 73–98; PULSE 80–108; RESP 16–18; TEMP 36.4–36.8; O2SAT 92–96; BMI 29.0
[2020-06-19] MEDS: Heparin Sodium,Porcine 5,000 UNIT/ML VIAL 5000 UNIT SUBCUT ×2 (05:13→18:16)
[2020-06-19] MEDS: Omeprazole 20 MG CAPSULE.DR PO ×2 (05:13→18:16)
[2020-06-19] MEDS: Sodium Bicarbonate 650 MG TABLET 1300 MG PO ×2 (08:51→21:54)
[2020-06-19] MEDS: 0.9 % Sodium Chloride Flush 3 ML SYRINGE IVFLUSH ×3 (08:51→21:55)
[2020-06-19] MEDS: predniSONE 20 MG TABLET 60 MG PO (08:51)
--- NOTE | 2020-06-19 12:21 | MHC.CM.PN ---
Patient started dialysis on 06/16/20 and will be going for tunnelled catheter placement today, BUN/Cr has improved to 48/4.88. Renal biopsy on 06/15/20 is still pending. Patient has also been started on IV Rituximab. Discharge plan is home no services. CM will continue to follow patient for discharge needs.
--- NOTE | 2020-06-19 13:06 | P.PNNP_ITS ---
Subjective Subjective Date of Service: 06/19/20 Principal diagnosis: PNEUMONIA/ LUNG MASSES Interval history: Events noted Seen and examined Feeling better and wants to go home , minimal cough, no dyspnea No hematuria Physical Exam Vital Signs: Vital Signs: Last Vital Signs Temp 98.0 F 06/19/20 08:00 Pulse 92 06/19/20 08:00 Resp 18 06/19/20 08:00 BP 150/73 H 06/19/20 08:00 Pulse Ox 92 06/19/20 08:00 Body Mass Index 29.0 Const: General: comfortable Orientation/consciousness: patient oriented x3 Neck: Neck: Yes supple Resp: Auscultation: diminished lung sounds Cardio: Heart sounds: no murmurs and no rubs GI: Auscultation: normal bowel sounds Neuro: General: patient oriented x3 Motor exam (neuro): no asterixis Objective Data Labs CBC & Chem 7: 06/18/20 07:00 06/18/20 07:00 Microbiology Microbiology Results: Microbiology 06/12/20 22:36 Blood - Venous Blood Culture - Final No growth after 5 days. 06/12/20 22:30 Blood - Venous Blood Culture - Final No growth after 5 days. 06/13/20 Unknown Urine clean catch - Clean Catch Midstream Urine Culture - Final Assessment & Plan Assessment and plan (1) BILLIE (acute kidney injury): Problem details: BILLIE - RPGN PR3 Positive MPO negative Anti GM Negative Compliments C3 and C4 normal Others pending Blood c/s negative Urine C/s negative High WBC count due RPGN/Steroids . Afebrile. No active infection Kidney biopsy 06/15...I contacted renal path and final Dx c/w very aggressive RPGN c/w ANCA positive s/p Rituxmab on 06/17/20 On pulse steroids- x 3 Started PO Prednisone 60 mg Daily on 06/17/20 Will consider steroid sparing agent - Avacopan ( Oral Compliment C5b receptor inhibitor) as out patient; would consider add on pheresis if signif lung invovlement; controversey exists as to potential benifts of pheresis in severe renal ANCA vasculitis--lets see what response she has over the next few days and then consider add on pheresis s/p IJ line insertion and dialysis HD again today Outpt HD spot being arranged for [place] Hemoglobin is trending down. Check CT scan and follow HCT will start Epogen Will need out patient dialysis and I shall arrange at [place] dialysis Status: Acute Time Spent With Patient Time: Total time spent is greater than 50% in coordination of care (as documented) at patient's floor/unit and/or counseling patient:
--- NOTE | 2020-06-19 13:11 | MHC.CLN ---
F/U PO INTAKE 75-100% DIET RX: REGULAR-APPROPRIATE WILL RE-START ENSURE BID TO INCREASE KCALS SUPPLEMENT TO PROVIDE 700KCALS, 40G PROTEIN PT PREFERS LISA [facility] FOLLOWING
[2020-06-19 13:43] LABS: Haptoglobin 545 mg/dL (43-212)
--- NOTE | 2020-06-19 18:37 | HO.PM.IMPN ---
Subjective Subjective Date of Service: 06/19/20 Interval History: feels well, no new complaints, cough resolved Physical Exam Vital Signs: Vital Signs: Last Vital Signs Temp 97.5 F 06/19/20 15:42 Pulse 108 H 06/19/20 15:42 Resp 18 06/19/20 15:42 BP 160/98 H 06/19/20 15:42 Pulse Ox 96 06/19/20 15:42 Body Mass Index 29.0 Gen: in no acute distress HEENT: sclera anicteric, moist mucus membranes Neck: RIJ HD catheter Lungs: good air entry, inspiratory crackles at bases bilaterally Heart: regular rate and rhythm, no murmurs Abd: soft, non-tender, non-distended Ext: no edema Skin: warm/well-perfused Neuro: alert and oriented x3, no focal findings Psych: appropriate affect Objective Data Current Medications Generic Name Dose Route Start Last Admin Trade Name Freq PRN Reason Stop Dose Admin Acetaminophen 650 mg 06/13/20 03:35 06/17/20 20:00 Acetaminophen 325 Mg Tablet PO 650 mg Q6H PRN Administration Pain, Mild (Pain Scale 1-3) Al Hydroxide/Mg Hydroxide 30 ml 06/13/20 03:35 Magnesium Hydrox/Alum Hydrox 30 Ml Oral.Susp PO Q4H PRN Heartburn/Nausea Amlodipine Besylate 5 mg 06/13/20 03:35 06/18/20 20:04 Amlodipine Besylate 5 Mg Tablet PO 5 mg BEDTIME MAHAMED Administration Protocol Atorvastatin Calcium 10 mg 06/13/20 03:35 06/18/20 20:04 Atorvastatin Calcium 10 Mg Tablet PO 10 mg BEDTIME MAHAMED Administration Azithromycin 500 mg 06/13/20 21:00 06/18/20 20:04 Azithromycin 500 Mg Tablet PO 500 mg Q24H MAHAMED Administration Heparin Sodium (Porcine) 5,000 unit 06/13/20 06:00 06/19/20 18:16 Heparin Sodium,Porcine 5,000 Unit/Ml Vial SUBCUT 5,000 unit Q12H MAHAMED Administration Ceftriaxone Sodium 1 gm/ 50 mls @ 100 mls/hr 06/13/20 21:00 06/18/20 20:34 Sodium Chloride IV Infused Q24H MAHAMED Infusion Omeprazole 20 mg 06/14/20 16:30 06/19/20 18:16 Omeprazole 20 Mg Capsule. PO 20 mg BID@0630,1630 MAHAMED Administration Ondansetron HCl 4 mg 06/13/20 03:35 Ondansetron Hcl 4 Mg/2 Ml Vial IVPUSH Q8H PRN Nausea and Vomiting Prednisone 60 mg 06/17/20 09:00 06/19/20 08:51 Prednisone 20 Mg Tablet PO 60 mg DAILY MAHAMED Administration Sodium Bicarbonate 1,300 mg 06/16/20 09:00 06/19/20 18:13 Sodium Bicarbonate 650 Mg Tablet PO Not Given TID MAHAMED Sodium Chloride 3 ml 06/13/20 08:00 06/19/20 18:16 0.9 % Sodium Chloride Flush 3 Ml Syringe IVFLUSH 3 ml QSHIFT MAHAMED Administration Labs CBC & Chem 7: 06/18/20 07:00 06/18/20 07:00 Microbiology Microbiology Results: Microbiology 06/12/20 22:36 Blood - Venous Blood Culture - Final No growth after 5 days. 06/12/20 22:30 Blood - Venous Blood Culture - Final No growth after 5 days. 06/13/20 Unknown Urine clean catch - Clean Catch Midstream Urine Culture - Final Assessment and Plan (1) BILLIE (acute kidney injury): Status: Acute Assessment and Plan: hospital d#7 69yo F with HTN, HLD, presenting with malaise, weight loss, and dry cough admitted for BILLIE and multifocal lung infiltrates, found to have RPGN, PR3-ANCA positive, suspicious for granulomatosis with polyangiitis # BILLIE - s/p renal biopsy 06/15/20, HD today continue bicarbonate supplementation, Nephrology following. will need to exchange Kye for tunnel cath- ordered. # granulomatosis with polyangiitis - induction therapy: s/p pulse steroids x3d, on prednisone 60 mg/d now, got rituximab yesterday. anti-GBM neg. t/c outpt steroid-sparing agent avacopan, ?role of plasmapheresis/ # anemia associated with renal insufficiency - epo per Nephrology # hyperK - resolved # multifocal pulmonary infiltrates, pneumonia vs. metastases vs. granulomatosis with polyangiitis - ceftriaxone/azithromycin d#09/13, BCx negative, trend PCT - repeat CT chest tomorrow and if infiltrates improved, will cancel CT-guided biopsy # leukocytosis - suspect due to vasculitis/steroids # troponin elevation - no angina or EKG changes, likely due to renal insufficiency # HTN - continue amlodipine # HLD - continue statin # VTE ppx - UFH
[2020-06-19] MEDS: cefTRIAXone sodium 1 GM in 0.9 % Sodium Chloride 50 ML IV (21:50)
[2020-06-19] MEDS: Azithromycin 500 MG TABLET PO (21:51)
[2020-06-19] MEDS: Atorvastatin Calcium 10 MG TABLET PO (21:55)
[2020-06-19] MEDS: amLODIPine Besylate 5 MG TABLET PO (21:55)
[2020-06-20 03:55] VITALS: BP 160/76; PULSE 77; RESP 20; TEMP 36.6; O2SAT 95
[2020-06-20 05:46] VITALS: BMI 28.1
[2020-06-20] MEDS: Heparin Sodium,Porcine 5,000 UNIT/ML VIAL 5000 UNIT SUBCUT ×2 (05:52→16:26)
[2020-06-20] MEDS: Omeprazole 20 MG CAPSULE.DR PO ×2 (05:53→16:29)
[2020-06-20 06:20] LABS: Basophils Percent Auto 0.2 % (0-2); Eosinophils Absolute Auto 0.1 X10*3/uL (0.0-0.4); Eosinophils Percent Auto 0.3 % (0-4); Hematocrit 29.3 % (37-47); Hemoglobin 9.2 g/dl (12.0-16.0); Imm Gran Abs Auto 1.33 X10*3/uL (0.00-0.03); Lymphocytes Absolute Auto 2.5 X10*3/uL (1.2-4.9); Lymphocytes Percent Auto 9.5 % (20-40); MANUAL DIFF FLAG SCAN; Mean Corpuscular HGB Conc 31.4 g/dl (31.0-35.0); Mean Corpuscular Hemoglobin 26.9 pg (27.0-33.0); Mean Corpuscular Volume 85.7 fL (80-98); Mean Platelet Volume 11.1 fL (9.4-12.3); Monocytes Absolute Auto 1.1 X10*3/uL (0.1-1.2); Monocytes Percent Auto 4.2 % (2-11); NRBC Pct Auto 1.4 /100WBC (0.0-0.2); Neutrophils Absolute Auto 21.5 X10*3/uL (2.0-8.3); Neutrophils Percent Auto 80.8 % (45-73); Platelet Count 355 X10*3/uL (160-400); Red Blood Count 3.42 X10*6/uL (4.20-5.50); Red Cell Distribution Width 15.2 % (11.0-16.0); SCAN SMEAR FLAG 1; White Blood Count 26.6 X10*3/uL (4.8-10.8)
[2020-06-20 06:41] LABS: SLIDE REVIEW VERIFIED
[2020-06-20 06:49] LABS: Anion Gap 15 (12-20); Blood Urea Nitrogen 45 mg/dL (9-16); Calcium 7.9 mg/dL (8.4-10.2); Carbon Dioxide 24 mmol/L (22-29); Chloride 103 mmol/L (96-108); Creatinine Clr Calc Pharmacy 14.5; Estimated Glomerular Filt Rate 12; Glucose Random 102 mg/dL (60-115); Potassium 3.7 mmol/L (3.3-5.1); Sodium 138 mmol/L (135-145)
[2020-06-20 07:28] VITALS: BP 135/85; PULSE 85; RESP 18; TEMP 36.7; O2SAT 95
[2020-06-20] MEDS: predniSONE 20 MG TABLET 60 MG PO (09:15)
[2020-06-20] MEDS: Sodium Bicarbonate 650 MG TABLET 1300 MG PO ×3 (09:15→20:48)
[2020-06-20] MEDS: 0.9 % Sodium Chloride Flush 3 ML SYRINGE IVFLUSH ×3 (09:15→23:09)
--- NOTE | 2020-06-20 09:22 | MHC.CM.PN ---
CARLY spoke with Enedina in IR who reports they placed a temporary catheter on 06/15 r/t WBC od 16.[address] a tunneled catheter if there is a question of infection. Today's WBC is 26.6. CARLY also spoke with Peggy in oncology to ask if tumors can elevate WBC, she will ask Dr Blackman and return CM call. If it caused by tumors, Dr Blackman will have to note that and Dr White will need to write a new order and patient would need to be NPO. CARLY will continue to follow for discharge needs.
--- NOTE | 2020-06-20 10:22 | PM.PNPUL ---
Subjective Subjective Date of Service: 06/20/20 Principal diagnosis: PNEUMONIA/ LUNG MASSES Interval history: The patient was seen and examined. She is status post pulse dose steroids in addition to rituximab. She is currently getting dialysis. 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 She denies any hemoptysis. However, she does have evidence of diffuse alveolar hemorrhage the patient needs to be considered for plasmapheresis for aggressive therapy in view of potential worsening disease. In addition to that cavitary lung lesions can also be the result of a smoldering infection and additional information needs to be gathered specially well being immunosuppressed. Therefore, she is agreeable to have a bronchoscopy tomorrow plan for 10:00 a.m. in the morning. The patient be made NPO. Objective Data Labs CBC & Chem 7: 06/20/20 05:38 06/20/20 05:37 Labs: Laboratory Results - last 24 hr 06/15/20 06/20/20 06/20/20 08:44 05:37 05:38 WBC 26.6 H RBC 3.42 L Hgb 9.2 L Hct 29.3 L MCV 85.7 MCH 26.9 L MCHC 31.4 RDW 15.2 Plt Count 355 MPV 11.1 Immature Gran % (Auto) 5.0 H Neut % (Auto) 80.8 H Lymph % (Auto) 9.5 L [place] % (Auto) 4.2 Eos % (Auto) 0.3 Baso % (Auto) 0.2 Lymph # (Auto) 2.5 [place] # (Auto) 1.1 Eos # (Auto) 0.1 Baso # (Auto) 0.0 Abs Immat Gran (auto) 1.33 H Absolute Neuts (auto) 21.5 H Absolute Nucleated RBC 0.370 H Nucleated RBC % (auto) 1.4 H Smear Tech's Comments VERIFIED Haptoglobin 545 H Sodium 138 Potassium 3.7 Chloride 103 Carbon Dioxide 24 Anion Gap 15 BUN 45 H Creatinine 3.84 H Estim Creat Clear Calc 14.5 Estimated GFR 12 Random Glucose 102 Calcium 7.9 L Microbiology Microbiology Results: Microbiology 06/12/20 22:36 Blood - Venous Blood Culture - Final No growth after 5 days. 06/12/20 22:30 Blood - Venous Blood Culture - Final No growth after 5 days. 06/13/20 Unknown Urine clean catch - Clean Catch Midstream Urine Culture - Final Review of Systems Constitutional: Denies night sweats Denies change in voice, Denies lip swelling, Denies mouth pain, Reports nasal congestion, Reports nasal discharge and Denies tongue swelling Cardiovascular: Denies chest pain and Denies dyspnea Respiratory: Reports cough, Denies hemoptysis, Denies pain with cough and Denies dyspnea Gastrointestinal: Denies abdominal pain Musculoskeletal: Denies no additional musculoskeletal complaints Denies Neuro-related abnormal movements Psychiatric: Denies no additional psychiatric complaints Hematologic/Lymphatic: Denies easy bleeding and Denies lymphadenopathy Allergic/Immunologic: Denies lip swelling and Denies tongue swelling Physical Exam Vital Signs: Vital Signs: Last Vital Signs Temp 98.1 F 06/20/20 07:28 Pulse 85 06/20/20 07:28 Resp 18 06/20/20 07:28 BP 135/85 06/20/20 07:28 Pulse Ox 95 06/20/20 07:28 Body Mass Index 28.1 Const: General: alert HENMT: General nose exam: Abnormal external nose present Eyes: Pupils: Equal, round and reactive pupils present Neck: Neck: Yes normal visual inspection, Yes full ROM and Yes no lymphadenopathy Chest: Chest palpation & inspection: normal inspection of the chest Resp: Auscultation: diminished lung sounds Cardio: Rate: regular rate Rhythm: regular rhythm Heart sounds: S1 normal heart sound present and S2 normal heart sound present GI: Palpation (GI): Soft to palpation and nontender Auscultation: normal bowel sounds Skin: General skin exam: rashes and/or lesions noted Neuro: Cranial nerves: Yes Equal, round and reactive pupils present Assessment and Plan Assessment and plan (1) Anahy's granulomatosis: Status: Acute (2) Lung mass: Problem details: ABOVE UNDER HACKING NURSE GRANULOMATOSIS. WHICH SHOULD DO A REPEAT CHEST X-RAY TO MAKE SURE THAT THE NODULAR DENSITIES OR RESOLVED. Status: Acute Assessment and Plan: NPO for bronchoscopy tomorrow to perform bronchoalveolar lavage to assess for diffuse alveolar hemorrhage and also to rule out smoldering infections Time Spent With Patient Time: Total time spent is greater than 50% in coordination of care (as documented) at patient's floor/unit and/or counseling patient: Time with patient: 15 - 24 minutes
[2020-06-20 11:30] VITALS: BP 139/74; PULSE 85; RESP 18; TEMP 36.6; O2SAT 96
[2020-06-20 11:48] LABS: Procalcitonin 0.51 ng/mL
--- NOTE | 2020-06-20 15:35 | P.PNIM_ITS ---
Subjective Subjective Date of Service: 06/20/20 Interval History: very minimal cough no hemoptysis urinating more no fever Physical Exam 2 Vital Signs: Vital Signs: Last Vital Signs Temp 97.8 F 06/20/20 11:30 Pulse 85 06/20/20 11:30 Resp 18 06/20/20 11:30 BP 139/74 06/20/20 11:30 Pulse Ox 96 06/20/20 11:30 Body Mass Index 28.1 Gen: in no acute distress HEENT: sclera anicteric, moist mucus membranes Neck: RIJ HD catheter Lungs: good air entry, clear bilaterally Heart: regular rate and rhythm, no murmurs Abd: soft, non-tender, non-distended Ext: no edema Skin: warm/well-perfused Neuro: alert and oriented x3, no focal findings Psych: appropriate affect Objective Data Current Medications Generic Name Dose Route Start Last Admin Trade Name Freq PRN Reason Stop Dose Admin Acetaminophen 650 mg 06/13/20 03:35 06/17/20 20:00 Acetaminophen 325 Mg Tablet PO 650 mg Q6H PRN Administration Pain, Mild (Pain Scale 1-3) Al Hydroxide/Mg Hydroxide 30 ml 06/13/20 03:35 Magnesium Hydrox/Alum Hydrox 30 Ml Oral.Susp PO Q4H PRN Heartburn/Nausea Amlodipine Besylate 5 mg 06/13/20 03:35 06/19/20 21:55 Amlodipine Besylate 5 Mg Tablet PO 5 mg BEDTIME MAHAMED Administration Protocol Atorvastatin Calcium 10 mg 06/13/20 03:35 06/19/20 21:55 Atorvastatin Calcium 10 Mg Tablet PO 10 mg BEDTIME MAHAMED Administration Azithromycin 500 mg 06/13/20 21:00 06/19/20 21:51 Azithromycin 500 Mg Tablet PO 500 mg Q24H MAHAMED Administration Heparin Sodium (Porcine) 5,000 unit 06/13/20 06:00 06/20/20 05:52 Heparin Sodium,Porcine 5,000 Unit/Ml Vial SUBCUT 5,000 unit Q12H MAHAMED Administration Ceftriaxone Sodium 1 gm/ 50 mls @ 100 mls/hr 06/13/20 21:00 06/20/20 00:22 Sodium Chloride IV Infused Q24H MAHAMED Infusion Omeprazole 20 mg 06/14/20 16:30 06/20/20 05:53 Omeprazole 20 Mg Capsule. PO 20 mg BID@0630,1630 MAHAMED Administration Ondansetron HCl 4 mg 06/13/20 03:35 Ondansetron Hcl 4 Mg/2 Ml Vial IVPUSH Q8H PRN Nausea and Vomiting Prednisone 60 mg 06/17/20 09:00 06/20/20 09:15 Prednisone 20 Mg Tablet PO 60 mg DAILY MAHAMED Administration Sodium Bicarbonate 1,300 mg 06/16/20 09:00 06/20/20 09:15 Sodium Bicarbonate 650 Mg Tablet PO 1,300 mg TID MAHAMED Administration Sodium Chloride 3 ml 06/13/20 08:00 06/20/20 09:15 0.9 % Sodium Chloride Flush 3 Ml Syringe IVFLUSH 3 ml QSHIFT MAHAMED Administration Labs CBC & Chem 7: 06/20/20 05:38 06/20/20 05:37 Labs: Laboratory Results - last 24 hr 06/20/20 06/20/20 06/20/20 05:37 05:37 05:38 WBC 26.6 H RBC 3.42 L Hgb 9.2 L Hct 29.3 L MCV 85.7 MCH 26.9 L MCHC 31.4 RDW 15.2 Plt Count 355 MPV 11.1 Immature Gran % (Auto) 5.0 H Neut % (Auto) 80.8 H Lymph % (Auto) 9.5 L [place] % (Auto) 4.2 Eos % (Auto) 0.3 Baso % (Auto) 0.2 Lymph # (Auto) 2.5 [place] # (Auto) 1.1 Eos # (Auto) 0.1 Baso # (Auto) 0.0 Abs Immat Gran (auto) 1.33 H Absolute Neuts (auto) 21.5 H Absolute Nucleated RBC 0.370 H Nucleated RBC % (auto) 1.4 H Smear Tech's Comments VERIFIED Sodium 138 Potassium 3.7 Chloride 103 Carbon Dioxide 24 Anion Gap 15 BUN 45 H Creatinine 3.84 H Estim Creat Clear Calc 14.5 Estimated GFR 12 Random Glucose 102 Calcium 7.9 L Procalcitonin 0.[address] 06/20/20 08:00 IMPRESSION: There is mixed appearance of the solid and cavitary pulmonary nodules and masses compared to 06/12/2020 exam. This favors an infectious or inflammatory process. Infections such as fungal infection, RICKY, TB, septic emboli as well as a granulomatous disease and vasculitis should be considered. Microbiology Microbiology Results: Microbiology 06/12/20 22:36 Blood - Venous Blood Culture - Final No growth after 5 days. 06/12/20 22:30 Blood - Venous Blood Culture - Final No growth after 5 days. 06/13/20 Unknown Urine clean catch - Clean Catch Midstream Urine Culture - Final Assessment and Plan (1) BILLIE (acute kidney injury): Status: Acute Assessment and Plan: hospital d#8 69yo F with HTN, HLD, presenting with malaise, weight loss, and dry cough admitted for BILLIE and multifocal lung infiltrates, found to have RPGN, PR3-ANCA positive, suspicious for granulomatosis with polyangiitis # BILLIE - s/p renal biopsy 06/15/20, HD today continue bicarbonate supplementation, Nephr ology following. will need to exchange Kye for tunnel cath- ordered. # granulomatosis with polyangiitis - induction therapy: s/p pulse steroids x3d, on prednisone 60 mg/d now, got rituximab 06/17. anti-GBM neg. t/c outpt steroid-sparing agent avacopan. may require plasmapheresis if there is extensive lung disease- bronchoscopy planned tomorrow # anemia associated with renal insufficiency - epo per Nephrology # hyperK - resolved # multifocal pulmonary infiltrates, pneumonia vs. metastases vs. granulomatosis with polyangiitis - ceftriaxone/azithromycin d#8, BCx negative, PCT decreasing, will d/c ABX pending results of bronchoscopy # leukocytosis - suspect due to vasculitis/steroids, not infection # troponin elevation - no angina or EKG changes, likely due to renal insufficiency # HTN - continue amlodipine # HLD - continue statin # VTE ppx - UFH
[2020-06-20 15:47] VITALS: BP 144/72; PULSE 97; RESP 18; TEMP 35.7; O2SAT 95
[2020-06-20 16:47] LABS: PEU-Protein Creat Ratio Rand 0.694 (0.021-0.161); PEU-Rand. Prot/Creat Ratio 694 mg/g creat (21-161); PEU-Random Ur. Gamma Globulin 0 %; PEU-Random Urine A1 Globulin 0 %; PEU-Random Urine A2 Globulin 0 %; PEU-Random Urine Albumin 100 %; PEU-Random Urine Beta Globulin 0 %; PEU-Random Urine Creatinine 36 mg/dL (20-275); PEU-Random Urine Protein 25 mg/dL (5-24)
--- NOTE | 2020-06-20 18:48 | PM.PNNEP ---
Subjective Subjective Date of Service: 06/20/20 Principal diagnosis: PNEUMONIA/ LUNG MASSES Interval history: Seen and examined. Event snoted. No hemopysis Physical Exam Vital Signs: Vital Signs: Last Vital Signs Temp 96.3 F L 06/20/20 15:47 Pulse 97 06/20/20 15:47 Resp 18 06/20/20 15:47 BP 144/72 H 06/20/20 15:47 Pulse Ox 95 06/20/20 15:47 Body Mass Index 28.1 Const: General: comfortable Orientation/consciousness: patient oriented x3 Neck: Neck: Yes supple Resp: Auscultation: diminished lung sounds Cardio: Heart sounds: no murmurs and no rubs GI: Auscultation: normal bowel sounds Neuro: General: patient oriented x3 Motor exam (neuro): no asterixis Objective Data Labs CBC & Chem 7: 06/20/20 05:38 06/20/20 05:37 Labs: Laboratory Results - last 24 hr 06/16/20 06/20/20 06/20/20 Unknown 05:37 05:37 WBC RBC Hgb Hct MCV MCH MCHC RDW Plt Count MPV Immature Gran % (Auto) Neut % (Auto) Lymph % (Auto) [place] % (Auto) Eos % (Auto) Baso % (Auto) Lymph # (Auto) [place] # (Auto) Eos # (Auto) Baso # (Auto) Abs Immat Gran (auto) Absolute Neuts (auto) Absolute Nucleated RBC Nucleated RBC % (auto) Smear Tech's Comments Sodium 138 Potassium 3.7 Chloride 103 Carbon Dioxide 24 Anion Gap 15 BUN 45 H Creatinine 3.84 H Estim Creat Clear Calc 14.5 Estimated GFR 12 Random Glucose 102 Calcium 7.9 L Procalcitonin 0.51 U [place] Prot/Creat Ratio 0.694 H Ur Creatinine mg/dL 36 U Total Protein mg/dL 25 H Protein/Creatinin Ratio 694 H Urine Albumin (%) 100 U [id number] (%) 0 U [id number]-[id number]-Nrafpitj (%) 0 U Beta Globulin (%) 0 U Gamma Globulin (%) 0 Urine PEP Interpret SEE NOTE 06/20/20 05:38 WBC 26.6 H RBC 3.42 L Hgb 9.2 L Hct 29.3 L MCV 85.7 MCH 26.9 L MCHC 31.4 RDW 15.2 Plt Count 355 MPV 11.1 Immature Gran % (Auto) 5.0 H Neut % (Auto) 80.8 H Lymph % (Auto) 9.5 L [place] % (Auto) 4.2 Eos % (Auto) 0.3 Baso % (Auto) 0.2 Lymph # (Auto) 2.5 [place] # (Auto) 1.1 Eos # (Auto) 0.1 Baso # (Auto) 0.0 Abs Immat Gran (auto) 1.33 H Absolute Neuts (auto) 21.5 H Absolute Nucleated RBC 0.370 H Nucleated RBC % (auto) 1.4 H Smear Tech's Comments VERIFIED Sodium Potassium Chloride Carbon Dioxide Anion Gap BUN Creatinine Estim Creat Clear Calc Estimated GFR Random Glucose Calcium Procalcitonin U [place] Prot/Creat Ratio Ur Creatinine mg/dL U Total Protein mg/dL Protein/Creatinin Ratio Urine Albumin (%) U Dznkb-[id number] (%) U Pmpwo-5-Crnrtrvl (%) U Beta Globulin (%) U Gamma Globulin (%) Urine PEP Interpret Microbiology Microbiology Results: Microbiology 06/12/20 22:36 Blood - Venous Blood Culture - Final No growth after 5 days. 06/12/20 22:30 Blood - Venous Blood Culture - Final No growth after 5 days. 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 Afebrile. No active infection Kidney biopsy 06/15...I contacted renal path and final Dx c/w very aggressive RPGN c/w ANCA positive s/p Rituxmab on 06/17/20 s/p pulse steroids- x 3 Started PO Prednisone 60 mg Daily on 06/17/20 Will consider steroid sparing agent - Avacopan ( Oral Compliment C5b receptor inhibitor) as out patient; would consider add on pheresis if signif lung invovlement; controversey exists as to potential benifts of pheresis in severe renal ANCA vasculitis--lets see what response she has over the next few days and then consider add on pheresis s/p IJ line insertion and dialysis Pulm to bronch tomorrow Needs Permcath Outpt HD spot being arranged for [place] Hemoglobin is trending down. Check CT scan and follow HCT will start Epogen Will need out patient dialysis and I shall arrange at [place] dialysis Status: Acute Time Spent With Patient Time: Total time spent is greater than 50% in coordination of care (as documented) at patient's floor/unit and/or counseling patient:
[2020-06-20 19:40] VITALS: BP 148/72; PULSE 76; RESP 18; TEMP 36.2; O2SAT 95
[2020-06-20] MEDS: Azithromycin 500 MG TABLET PO (20:48)
[2020-06-20] MEDS: amLODIPine Besylate 5 MG TABLET PO (20:48)
[2020-06-20] MEDS: Atorvastatin Calcium 10 MG TABLET PO (20:49)
[2020-06-20] MEDS: cefTRIAXone sodium 1 GM in 0.9 % Sodium Chloride 50 ML IV (20:49)
[2020-06-21] VITALS (10 sets, daily range): BP systolic 124–153; BP diastolic 61–79; PULSE 78–102; RESP 16–20; TEMP 36.1–36.6; O2SAT 92–99; BMI 28.0
[2020-06-21] MEDS: Heparin Sodium,Porcine 5,000 UNIT/ML VIAL 5000 UNIT SUBCUT (05:23)
[2020-06-21] MEDS: Omeprazole 20 MG CAPSULE.DR PO (05:25)
[2020-06-21 06:30] LABS: MANUAL DIFF FLAG NO
[2020-06-21 06:45] LABS: Basophils Percent Auto 0.2 % (0-2); Eosinophils Percent Auto 0.2 % (0-4); Hematocrit 27.9 % (37-47); Hemoglobin 8.8 g/dl (12.0-16.0); Imm Gran Abs Auto 0.92 X10*3/uL (0.00-0.03); Imm Gran Pct Auto 4.2 % (0.0-0.4); Lymphocytes Percent Auto 9.1 % (20-40); Mean Corpuscular HGB Conc 31.5 g/dl (31.0-35.0); Mean Corpuscular Hemoglobin 26.9 pg (27.0-33.0); Mean Corpuscular Volume 85.3 fL (80-98); Mean Platelet Volume 10.9 fL (9.4-12.3); Monocytes Absolute Auto 0.9 X10*3/uL (0.1-1.2); Monocytes Percent Auto 4.2 % (2-11); Neutrophils Absolute Auto 18.1 X10*3/uL (2.0-8.3); Neutrophils Percent Auto 82.1 % (45-73); Platelet Count 331 X10*3/uL (160-400); Red Blood Count 3.27 X10*6/uL (4.20-5.50); Red Cell Distribution Width 15.3 % (11.0-16.0); White Blood Count 22.1 X10*3/uL (4.8-10.8)
[2020-06-21 06:46] LABS: NRBC Pct Auto 1.5 /100WBC (0.0-0.2)
[2020-06-21 07:04] LABS: Prothrombin Time 11.6 SEC (10.8-13.0)
[2020-06-21 07:14] LABS: Anion Gap 18 (12-20); Blood Urea Nitrogen 64 mg/dL (9-16); Calcium 7.8 mg/dL (8.4-10.2); Carbon Dioxide 22 mmol/L (22-29); Chloride 105 mmol/L (96-108); Creatinine Clr Calc Pharmacy 11.4; Estimated Glomerular Filt Rate 9; Glucose Random 111 mg/dL (60-115); Potassium 3.7 mmol/L (3.3-5.1); Sodium 141 mmol/L (135-145)
--- NOTE | 2020-06-21 10:04 | HO.ANESPROP2 ---
[facility] Active Problems Active Problems: All Active Problems (Updated 06/20/20 @ 18:54 by Oh Leiva MD) Anahy's granulomatosis (Acute) Abnormal chest CT (Acute) Malaise (Acute) Leukocytosis (Acute) Elevated troponin (Acute) Transaminitis (Acute) BILLIE (acute kidney injury) (Acute) Lung mass (Acute) Pneumonia (Acute) Past Medical History Medical History Hyperlipidemia Hypertension Functional capacity: uses cane/walker Surgical History Surgical History H/O hernia repair History of partial hysterectomy Social History Social History Alcohol intake: never Smoking Status: Former smoker Years Smoked: Five years Smoked in Last 30 Days: No Use of substances other than those prescribed or required for medical reasons: No Currently Displaying Signs/Symptoms of Drug Intoxication Withdrawal: No Have you been hit, kicked, punched, or otherwise hurt by someone within the past year? If so, by whom?: No Advance Directives: No Advance Directives Information Provided: Yes Do you have thoughts of harming others: None Do you have a plan to hurt others: No Plan service: No Current occupational status: retired [employer] Allergies Allergy/AdvReac Type Severity Reaction Status Date / Time No Known Allergies Allergy Verified 06/12/20 15:17 Active Medications: Current Medications Generic Name Dose Route Start Last Admin Trade Name Freq PRN Reason Stop Dose Admin Acetaminophen 650 mg 06/13/20 03:35 06/17/20 20:00 Acetaminophen 325 Mg Tablet PO 650 mg Q6H PRN Administration Pain, Mild (Pain Scale 1-3) Al Hydroxide/Mg Hydroxide 30 ml 06/13/20 03:35 Magnesium Hydrox/Alum Hydrox 30 Ml Oral.Susp PO Q4H PRN Heartburn/Nausea Amlodipine Besylate 5 mg 06/13/20 03:35 06/20/20 20:48 Amlodipine Besylate 5 Mg Tablet PO 5 mg BEDTIME MAHAMED Administration Protocol Atorvastatin Calcium 10 mg 06/13/20 03:35 06/20/20 20:49 Atorvastatin Calcium 10 Mg Tablet PO 10 mg BEDTIME MAHAMED Administration Heparin Sodium (Porcine) 5,000 unit 06/13/20 06:00 06/21/20 05:23 Heparin Sodium,Porcine 5,000 Unit/Ml Vial SUBCUT 5,000 unit Q12H MAHAMED Administration Omeprazole 20 mg 06/14/20 16:30 06/21/20 05:25 Omeprazole 20 Mg Capsule. PO 20 mg BID@0630,4940 MAHAMED Administration Ondansetron HCl 4 mg 06/13/20 03:35 Ondansetron Hcl 4 Mg/2 Ml Vial IVPUSH Q8H PRN Nausea and Vomiting Prednisone 60 mg 06/17/20 09:00 06/20/20 09:15 Prednisone 20 Mg Tablet PO 60 mg DAILY MAHAMED Administration Sodium Bicarbonate 1,300 mg 06/16/20 09:00 06/20/20 20:48 Sodium Bicarbonate 650 Mg Tablet PO 1,300 mg TID MAHAMED Administration Sodium Chloride 3 ml 06/13/20 08:00 06/21/20 09:26 0.9 % Sodium Chloride Flush 3 Ml Syringe IVFLUSH Not Given QSHIFT [facility] Home Medications Medication Instructions Recorded Confirmed Last Taken Type amlodipine 1 tab PO QPM 06/12/20 06/12/20 Unknown History atorvastatin 1 tab PO QPM 06/12/20 06/12/20 Unknown History Exam Exam Date and Time: June 21, 2020 1004 Height,Weight and Vital Signs: Height 5 ft 6 in Weight 78.7 kg Last Vital Signs Temp 97.8 F 06/21/20 08:58 Pulse 81 06/21/20 08:58 Resp 18 06/21/20 08:58 BP 126/79 06/21/20 08:58 Pulse Ox 95 06/21/20 08:58 Pertinent Lab Results Pertinent Lab Results: Laboratory Tests 06/12/20 06/12/20 06/12/20 20:41 20:41 20:41 WBC 17.1 H RBC 4.25 Hgb 11.5 L Hct 35.0 L MCV 82.4 MCH 27.1 MCHC 32.9 RDW 14.1 Plt Count 532 H MPV 10.8 Immature Gran % (Auto) 0.8 H Neut % (Auto) 88.8 H Lymph % (Auto) 6.4 L [place] % (Auto) 3.3 Eos % (Auto) 0.5 Baso % (Auto) 0.2 Lymph # (Auto) 1.1 L [place] # (Auto) 0.6 Eos # (Auto) 0.1 Baso # (Auto) 0.0 Abs Immat Gran (auto) 0.14 H Absolute Neuts (auto) 15.2 H Absolute Nucleated RBC 0.000 Nucleated RBC % (auto) 0.0 Smear Tech's Comments Smear Path Review Haptoglobin PT 14.2 H INR 1.2 H APTT 28.4 Sodium 128 L Potassium 5.1 Chloride 85 L Carbon Dioxide 20 L Anion Gap 28 H BUN 121 H* Creatinine 11.69 H* Estim Creat Clear Calc 4.7 Estimated GFR 3 Random Glucose 123 H Osmolality Lactic Acid Calcium 7.8 L Phosphorus Magnesium 2.4 Ferritin Total Bilirubin 0.5 Direct Bilirubin 0.3 AST 41 H ALT 93 H Alkaline Phosphatase 121 H Lactate Dehydrogenase 336 H Total Creatine Kinase 15 L Troponin I High Sens Total Protein 6.2 L Total Protein (PEP) Albumin 3.0 L Albumin (PEP) Bjeto-9-Qcncbwesc Qgutq-2-Szspcrzqt Tgcw-6-Odglxtft Hkec-4-Xkowrnwd Gamma Globulins Abnorm Protein Band 1 Abnorm Protein Band 2 Abnorm Protein Band 3 PEP Interpretation Lipase 62 Carcinoembryonic Ag CA 19-9 Antigen CA 27-29 CA 125 Antigen Procalcitonin Urine Color Urine Appearance Urine pH Ur Specific [place] Urine Protein Urine Glucose (UA) Urine Ketones Urine Blood Urine Nitrite Ur Leukocyte Esterase Urine RBC Urine WBC Ur Squamous Epith Cells Urine Bacteria Urine Osmolality U Random Total Protein U [place] Prot/Creat Ratio Ur Random Sodium Urine Creatinine Ur Creatinine mg/dL U Total Protein mg/dL Protein/Creatinin Ratio Urine Albumin (%) U Nyngw-6-Ylvuaiyq (%) U Mrqyx-3-Hvrmojlq (%) U Beta Globulin (%) U Gamma Globulin (%) Urine PEP Interpret YOHAN Screen YOHAN Titer YOHAN Titer 2 YOHAN Titer 3 YOHAN Pattern YOHAN Pattern 2 YOHAN Pattern 3 Proteinase 3 (PR3) Ab Myeloperoxidase Ab Glomerular Base Memb Ab Complement C3 Complement C4 Coronavirus (PCR) Hep Bs Antigen Hep Bs Antibody Hep B Core Total Ab Hepatitis C Ab (EIA) Influenza Type A (PCR) Influenza Type B (PCR) RSV RNA Qual (PCR) 06/12/20 06/12/20 06/12/20 20:41 20:41 20:41 WBC RBC Hgb Hct MCV MCH MCHC RDW Plt Count MPV Immature Gran % (Auto) Neut % (Auto) Lymph % (Auto) [place] % (Auto) Eos % (Auto) Baso % (Auto) Lymph # (Auto) [place] # (Auto) Eos # (Auto) Baso # (Auto) Abs Immat Gran (auto) Absolute Neuts (auto) Absolute Nucleated RBC Nucleated RBC % (auto) Smear Tech's Comments Smear Path Review Haptoglobin PT INR APTT Sodium Potassium Chloride Carbon Dioxide Anion Gap BUN Creatinine Estim Creat Clear Calc Estimated GFR Random Glucose Osmolality Lactic Acid Calcium Phosphorus Magnesium Ferritin 3367 H Total Bilirubin Direct Bilirubin AST ALT Alkaline Phosphatase Lactate Dehydrogenase Total Creatine Kinase Troponin I High Sens 30.5 H Total Protein Total Protein (PEP) Albumin Albumin (PEP) Uhouz-5-Ntghtdlhu Wrpid-4-Wedvneebl Jzhx-6-Agrmuohi Egzw-1-Ygnrjias Gamma Globulins Abnorm Protein Band 1 Abnorm Protein Band 2 Abnorm Protein Band 3 PEP Interpretation Lipase Carcinoembryonic Ag CA 19-9 Antigen CA 27-29 CA 125 Antigen Procalcitonin Urine Color Urine Appearance Urine pH Ur Specific [place] Urine Protein Urine Glucose (UA) Urine Ketones Urine Blood Urine Nitrite Ur Leukocyte Esterase Urine RBC Urine WBC Ur Squamous Epith Cells Urine Bacteria Urine Osmolality U Random Total Protein U [place] Prot/Creat Ratio Ur Random Sodium Urine Creatinine Ur Creatinine mg/dL U Total Protein mg/dL Protein/Creatinin Ratio Urine Albumin (%) U Lgxpm-3-Xvybrwae (%) U Xhoxn-0-Dkbjvhhq (%) U Beta Globulin (%) U Gamma Globulin (%) Urine PEP Interpret YOHAN Screen YOHAN Titer YOHAN Titer 2 YOHAN Titer 3 YOHAN Pattern YOHAN Pattern 2 YOHAN Pattern 3 Proteinase 3 (PR3) Ab Myeloperoxidase Ab Glomerular Base Memb Ab Complement C3 Complement C4 Coronavirus (PCR) NEGATIVE Hep Bs Antigen Hep Bs Antibody Hep B Core Total Ab Hepatitis C Ab (EIA) Influenza Type A (PCR) NEGATIVE Influenza Type B (PCR) NEGATIVE RSV RNA Qual (PCR) NEGATIVE 06/12/20 06/12/20 06/13/20 20:42 22:30 03:24 WBC RBC Hgb Hct MCV MCH MCHC RDW Plt Count MPV Immature Gran % (Auto) Neut % (Auto) Lymph % (Auto) [place] % (Auto) Eos % (Auto) Baso % (Auto) Lymph # (Auto) [place] # (Auto) Eos # (Auto) Baso # (Auto) Abs Immat Gran (auto) Absolute Neuts (auto) Absolute Nucleated RBC Nucleated RBC % (auto) Smear Tech's Comments Smear Path Review Haptoglobin PT INR APTT Sodium Potassium Chloride Carbon Dioxide Anion Gap BUN Creatinine Estim Creat Clear Calc Estimated GFR Random Glucose Osmolality 310 H Lactic Acid 1.0 Calcium Phosphorus Magnesium Ferritin Total Bilirubin Direct Bilirubin AST ALT Alkaline Phosphatase Lactate Dehydrogenase Total Creatine Kinase Troponin I High Sens Total Protein Total Protein (PEP) Albumin Albumin (PEP) Squzt-5-Ubgaozsfr Zdkas-1-Fntvhmoos Xcau-6-Xegehbow Agdz-7-Npyrolms Gamma Globulins Abnorm Protein Band 1 Abnorm Protein Band 2 Abnorm Protein Band 3 PEP Interpretation Lipase Carcinoembryonic Ag CA 19-9 Antigen CA 27-29 CA 125 Antigen Procalcitonin 1.84 Urine Color Urine Appearance Urine pH Ur Specific [place] Urine Protein Urine Glucose (UA) Urine Ketones Urine Blood Urine Nitrite Ur Leukocyte Esterase Urine RBC Urine WBC Ur Squamous Epith Cells Urine Bacteria Urine Osmolality U Random Total Protein U [place] Prot/Creat Ratio Ur Random Sodium Urine Creatinine Ur Creatinine mg/dL U Total Protein mg/dL Protein/Creatinin Ratio Urine Albumin (%) U Rgeqw-1-Xfquucur (%) U Qgjhn-3-Jotrafdg (%) U Beta Globulin (%) U Gamma Globulin (%) Urine PEP Interpret YOHAN Screen YOHAN Titer YOHAN Titer 2 YOHAN Titer 3 YOHAN Pattern YOHAN Pattern 2 YOHAN Pattern 3 Proteinase 3 (PR3) Ab Myeloperoxidase Ab Glomerular Base Memb Ab Complement C3 Complement C4 Coronavirus (PCR) Hep Bs Antigen Hep Bs Antibody Hep B Core Total Ab Hepatitis C Ab (EIA) Influenza Type A (PCR) Influenza Type B (PCR) RSV RNA Qual (PCR) 06/13/20 06/13/20 06/13/20 03:24 03:24 06:25 WBC RBC Hgb Hct MCV MCH MCHC RDW Plt Count MPV Immature Gran % (Auto) Neut % (Auto) Lymph % (Auto) [place] % (Auto) Eos % (Auto) Baso % (Auto) Lymph # (Auto) [place] # (Auto) Eos # (Auto) Baso # (Auto) Abs Immat Gran (auto) Absolute Neuts (auto) Absolute Nucleated RBC Nucleated RBC % (auto) Smear Tech's Comments Smear Path Review Haptoglobin PT INR APTT Sodium Potassium Chloride Carbon Dioxide Anion Gap BUN Creatinine Estim Creat Clear Calc Estimated GFR Random Glucose Osmolality Lactic Acid Calcium Phosphorus Magnesium Ferritin Total Bilirubin Direct Bilirubin AST ALT Alkaline Phosphatase Lactate Dehydrogenase Total Creatine Kinase Troponin I High Sens 27.2 H Total Protein Total Protein (PEP) Albumin Albumin (PEP) Kwcth-1-Gdujoasbj Jhopg-5-Twqiwwuli Nihi-3-Aqeaalez Arzm-5-Ttmafwib Gamma Globulins Abnorm Protein Band 1 Abnorm Protein Band 2 Abnorm Protein Band 3 PEP Interpretation Lipase Carcinoembryonic Ag 0.60 CA 19-9 Antigen CA 27-29 CA 125 Antigen Procalcitonin Urine Color Urine Appearance Urine pH Ur Specific [place] Urine Protein Urine Glucose (UA) Urine Ketones Urine Blood Urine Nitrite Ur Leukocyte Esterase Urine RBC Urine WBC Ur Squamous Epith Cells Urine Bacteria Urine Osmolality U Random Total Protein U [place] Prot/Creat Ratio Ur Random Sodium Urine Creatinine Ur Creatinine mg/dL U Total Protein mg/dL Protein/Creatinin Ratio Urine Albumin (%) U Wnbup-3-Sxazngin (%) U Mpbdd-1-Djgtugap (%) U Beta Globulin (%) U Gamma Globulin (%) Urine PEP Interpret YOHAN Screen NEGATIVE YOHAN Titer TNP YOHAN Titer 2 TNP YOHAN Titer 3 TNP YOHAN Pattern TNP YOHAN Pattern 2 TNP YOHAN Pattern 3 TNP Proteinase 3 (PR3) Ab Myeloperoxidase Ab Glomerular Base Memb Ab Complement C3 Complement C4 Coronavirus (PCR) Hep Bs Antigen Hep Bs Antibody Hep B Core Total Ab Hepatitis C Ab (EIA) Influenza Type A (PCR) Influenza Type B (PCR) RSV RNA Qual (PCR) 06/13/20 06/13/20 06/13/20 06:25 09:48 10:11 WBC RBC Hgb Hct MCV MCH MCHC RDW Plt Count MPV Immature Gran % (Auto) Neut % (Auto) Lymph % (Auto) [place] % (Auto) Eos % (Auto) Baso % (Auto) Lymph # (Auto) [place] # (Auto) Eos # (Auto) Baso # (Auto) Abs Immat Gran (auto) Absolute Neuts (auto) Absolute Nucleated RBC Nucleated RBC % (auto) Smear Tech's Comments Smear Path Review Haptoglobin PT INR APTT Sodium 130 L Potassium 5.2 H Chloride 91 L Carbon Dioxide 19 L Anion Gap 25 H BUN 122 H* Creatinine 11.52 H* Estim Creat Clear Calc 4.8 Estimated GFR 3 Random Glucose 138 H Osmolality Lactic Acid Calcium 7.2 L D Phosphorus Magnesium Ferritin Total Bilirubin Direct Bilirubin AST ALT Alkaline Phosphatase Lactate Dehydrogenase Total Creatine Kinase Troponin I High Sens Total Protein Total Protein (PEP) Albumin Albumin (PEP) Rnmvw-7-Roxfpiqih Feamn-1-Iytwsepot Zhgj-9-Enzodclr Bpvd-2-Ntcueerr Gamma Globulins Abnorm Protein Band 1 Abnorm Protein Band 2 Abnorm Protein Band 3 PEP Interpretation Lipase Carcinoembryonic Ag CA 19-9 Antigen CA 27-29 CA 125 Antigen Procalcitonin Urine Color YELLOW Urine Appearance CLOUDY Urine pH 6.0 Ur Specific [place] 1.015 Urine Protein 2+ H Urine Glucose (UA) NEG Urine Ketones NEG Urine Blood 2+ H Urine Nitrite NEG Ur Leukocyte Esterase 2+ H Urine RBC 1-4 Urine WBC 10-14 H Ur Squamous Epith Cells 3+ Urine Bacteria 2+ Urine Osmolality U Random Total Protein U [place] Prot/Creat Ratio Ur Random Sodium Urine Creatinine Ur Creatinine mg/dL U Total Protein mg/dL Protein/Creatinin Ratio Urine Albumin (%) U Tezen-2-Byxjpptr (%) U Ysudl-1-Gufpqwum (%) U Beta Globulin (%) U Gamma Globulin (%) Urine PEP Interpret YOHAN Screen YOHAN Titer YOHAN Titer 2 YOHAN Titer 3 YOHAN Pattern YOHAN Pattern 2 YOHAN Pattern 3 Proteinase 3 (PR3) Ab 6.5 H Myeloperoxidase Ab <1.0 Glomerular Base Memb Ab Complement C3 138 Complement C4 24 Coronavirus (PCR) Hep Bs Antigen Hep Bs Antibody Hep B Core Total Ab Hepatitis C Ab (EIA) Influenza Type A (PCR) Influenza Type B (PCR) RSV RNA Qual (PCR) 06/14/20 06/14/20 06/14/20 06:20 06:20 12:30 WBC 16.0 H RBC 3.69 L Hgb 10.2 L Hct 30.7 L MCV 83.2 MCH 27.6 MCHC 33.2 RDW 14.5 Plt Count 542 H MPV 11.0 Immature Gran % (Auto) 1.6 H Neut % (Auto) 85.9 H Lymph % (Auto) 7.0 L [place] % (Auto) 3.6 Eos % (Auto) 1.6 Baso % (Auto) 0.3 Lymph # (Auto) 1.1 L [place] # (Auto) 0.6 Eos # (Auto) 0.3 Baso # (Auto) 0.1 Abs Immat Gran (auto) 0.25 H Absolute Neuts (auto) 13.8 H Absolute Nucleated RBC 0.000 Nucleated RBC % (auto) 0.0 Smear Tech's Comments Smear Path Review Haptoglobin PT INR APTT Sodium 132 L Potassium 5.2 H Chloride 95 L Carbon Dioxide 18 L Anion Gap 24 H BUN 128 H* Creatinine 11.59 H* Estim Creat Clear Calc 4.8 Estimated GFR 3 Random Glucose 108 Osmolality Lactic Acid Calcium 7.3 L Phosphorus Magnesium Ferritin Total Bilirubin 0.4 Direct Bilirubin 0.2 AST 35 H ALT 75 H Alkaline Phosphatase 108 Lactate Dehydrogenase Total Creatine Kinase 42 D Troponin I High Sens Total Protein 5.2 L Total Protein (PEP) 5.4 L Albumin 2.5 L Albumin (PEP) 2.0 L Yluvw-2-Tbyryuofv 0.8 H Exegz-5-Qpqzoajjk 1.1 H Wkff-1-Mwsanfct 0.3 L Twdh-0-Yqbizhij 0.4 Gamma Globulins 0.9 Abnorm Protein Band 1 TNP Abnorm Protein Band 2 TNP Abnorm Protein Band 3 TNP PEP Interpretation SEE NOTE Lipase Carcinoembryonic Ag CA 19-9 Antigen CA 27-29 CA 125 Antigen Procalcitonin Urine Color Urine Appearance Urine pH Ur Specific [place] Urine Protein Urine Glucose (UA) Urine Ketones Urine Blood Urine Nitrite Ur Leukocyte Esterase Urine RBC Urine WBC Ur Squamous Epith Cells Urine Bacteria Urine Osmolality U Random Total Protein U [place] Prot/Creat Ratio Ur Random Sodium Urine Creatinine Ur Creatinine mg/dL U Total Protein mg/dL Protein/Creatinin Ratio Urine Albumin (%) U Fxamj-0-Vdrimvrt (%) U Cfxdo-5-Cachzwmu (%) U Beta Globulin (%) U Gamma Globulin (%) Urine PEP Interpret YOHAN Screen YOHAN Titer YOHAN Titer 2 YOHAN Titer 3 YOHAN Pattern YOHAN Pattern 2 YOHAN Pattern 3 Proteinase 3 (PR3) Ab Myeloperoxidase Ab Glomerular Base Memb Ab Complement C3 Complement C4 Coronavirus (PCR) Hep Bs Antigen Hep Bs Antibody Hep B Core Total Ab Hepatitis C Ab (EIA) Influenza Type A (PCR) Influenza Type B (PCR) RSV RNA Qual (PCR) 06/15/20 06/15/20 06/15/20 08:44 08:44 08:44 WBC RBC Hgb Hct MCV MCH MCHC RDW Plt Count MPV Immature Gran % (Auto) Neut % (Auto) Lymph % (Auto) [place] % (Auto) Eos % (Auto) Baso % (Auto) Lymph # (Auto) [place] # (Auto) Eos # (Auto) Baso # (Auto) Abs Immat Gran (auto) Absolute Neuts (auto) Absolute Nucleated RBC Nucleated RBC % (auto) Smear Tech's Comments Smear Path Review Haptoglobin 545 H PT INR APTT Sodium 133 L Potassium 5.9 H Chloride 96 Carbon Dioxide 15 L Anion Gap 28 H BUN 131 H* Creatinine 12.26 H* Estim Creat Clear Calc 4.8 Estimated GFR 3 Random Glucose 178 H D Osmolality Lactic Acid Calcium 7.6 L Phosphorus Magnesium Ferritin Total Bilirubin Direct Bilirubin AST ALT Alkaline Phosphatase Lactate Dehydrogenase 305 H Total Creatine Kinase Troponin I High Sens Total Protein Total Protein (PEP) Albumin Albumin (PEP) Psarj-0-Cyvlstpgc Iqlrc-9-Whroflmzl Ogxd-2-Jbwirove Fxhw-9-Mgewtwuh Gamma Globulins Abnorm Protein Band 1 Abnorm Protein Band 2 Abnorm Protein Band 3 PEP Interpretation Lipase Carcinoembryonic Ag 0.60 CA 19-9 Antigen CA 27-29 CA 125 Antigen Procalcitonin Urine Color Urine Appearance Urine pH Ur Specific [place] Urine Protein Urine Glucose (UA) Urine Ketones Urine Blood Urine Nitrite Ur Leukocyte Esterase Urine RBC Urine WBC Ur Squamous Epith Cells Urine Bacteria Urine Osmolality U Random Total Protein U [place] Prot/Creat Ratio Ur Random Sodium Urine Creatinine Ur Creatinine mg/dL U Total Protein mg/dL Protein/Creatinin Ratio Urine Albumin (%) U Jznrm-6-Pagkxcup (%) U Fqckd-9-Keejwuvg (%) U Beta Globulin (%) U Gamma Globulin (%) Urine PEP Interpret YOHAN Screen YOHAN Titer YOHAN Titer 2 YOHAN Titer 3 YOHAN Pattern YOHAN Pattern 2 YOHAN Pattern 3 Proteinase 3 (PR3) Ab Myeloperoxidase Ab Glomerular Base Memb Ab <1.0 Complement C3 Complement C4 Coronavirus (PCR) Hep Bs Antigen Hep Bs Antibody Hep B Core Total Ab Hepatitis C Ab (EIA) Influenza Type A (PCR) Influenza Type B (PCR) RSV RNA Qual (PCR) 06/15/20 06/15/20 06/15/20 08:44 08:44 08:46 WBC RBC Hgb Hct MCV MCH MCHC RDW Plt Count MPV Immature Gran % (Auto) Neut % (Auto) Lymph % (Auto) [place] % (Auto) Eos % (Auto) Baso % (Auto) Lymph # (Auto) [place] # (Auto) Eos # (Auto) Baso # (Auto) Abs Immat Gran (auto) Absolute Neuts (auto) Absolute Nucleated RBC Nucleated RBC % (auto) Smear Tech's Comments Smear Path Review Haptoglobin PT INR APTT Sodium Cancelled Potassium Cancelled Chloride Cancelled Carbon Dioxide Cancelled Anion Gap Cancelled BUN Cancelled Creatinine Cancelled Estim Creat Clear Calc Cancelled Estimated GFR Cancelled Random Glucose Cancelled Osmolality Lactic Acid Calcium Cancelled Phosphorus Magnesium Ferritin Total Bilirubin Direct Bilirubin AST ALT Alkaline Phosphatase Lactate Dehydrogenase Total Creatine Kinase Troponin I High Sens Total Protein Total Protein (PEP) 5.6 L Albumin Albumin (PEP) 2.0 L Dprwm-0-Utiqhxfif 0.8 H Xdxzl-5-Ngoshbrwb 1.3 H Cjgs-2-Xugeqkog 0.2 L Xhao-1-Nvmdnljh 0.4 Gamma Globulins 1.0 Abnorm Protein Band 1 TNP Abnorm Protein Band 2 TNP Abnorm Protein Band 3 TNP PEP Interpretation SEE NOTE Lipase Carcinoembryonic Ag CA 19-9 Antigen 22 CA 27-29 18 CA 125 Antigen 107 H Procalcitonin Urine Color Urine Appearance Urine pH Ur Specific [place] Urine Protein Urine Glucose (UA) Urine Ketones Urine Blood Urine Nitrite Ur Leukocyte Esterase Urine RBC Urine WBC Ur Squamous Epith Cells Urine Bacteria Urine Osmolality U Random Total Protein U [place] Prot/Creat Ratio Ur Random Sodium Urine Creatinine Ur Creatinine mg/dL U Total Protein mg/dL Protein/Creatinin Ratio Urine Albumin (%) U Vzvhx-6-Nyctdluk (%) U Vddok-7-Aggtsypu (%) U Beta Globulin (%) U Gamma Globulin (%) Urine PEP Interpret YOHAN Screen YOHAN Titer YOHAN Titer 2 YOHAN Titer 3 YOHAN Pattern YOHAN Pattern 2 YOHAN Pattern 3 Proteinase 3 (PR3) Ab Myeloperoxidase Ab Glomerular Base Memb Ab Complement C3 Complement C4 Coronavirus (PCR) Hep Bs Antigen Hep Bs Antibody Hep B Core Total Ab Hepatitis C Ab (EIA) Influenza Type A (PCR) Influenza Type B (PCR) RSV RNA Qual (PCR) 06/15/20 06/15/20 06/15/20 18:45 21:44 21:59 WBC 16.5 H RBC 3.69 L Hgb 10.0 L Hct 30.7 L MCV 83.2 MCH 27.1 MCHC 32.6 RDW 14.6 Plt Count 597 H MPV 11.0 Immature Gran % (Auto) Neut % (Auto) Lymph % (Auto) [place] % (Auto) Eos % (Auto) Baso % (Auto) Lymph # (Auto) [place] # (Auto) Eos # (Auto) Baso # (Auto) Abs Immat Gran (auto) Absolute Neuts (auto) Absolute Nucleated RBC 0.000 Nucleated RBC % (auto) 0.0 Smear Tech's Comments Smear Path Review Haptoglobin PT INR APTT Sodium 135 Potassium 5.2 H Chloride 96 Carbon Dioxide 15 L Anion Gap 29 H BUN 139 H* Creatinine 12.55 H* Estim Creat Clear Calc 4.8 Estimated GFR 3 Random Glucose 257 H D Osmolality Lactic Acid Calcium 7.8 L Phosphorus Magnesium Ferritin Total Bilirubin Direct Bilirubin AST ALT Alkaline Phosphatase Lactate Dehydrogenase Total Creatine Kinase Troponin I High Sens Total Protein Total Protein (PEP) Albumin Albumin (PEP) Wcqub-1-Wabzzyvdq Zizqy-5-Jkzvacyma Dchg-2-Cwhnmvzj Oxiv-7-Myfbehea Gamma Globulins Abnorm Protein Band 1 Abnorm Protein Band 2 Abnorm Protein Band 3 PEP Interpretation Lipase Carcinoembryonic Ag CA 19-9 Antigen CA 27-29 CA 125 Antigen Procalcitonin Urine Color Urine Appearance Urine pH Ur Specific [place] Urine Protein Urine Glucose (UA) Urine Ketones Urine Blood Urine Nitrite Ur Leukocyte Esterase Urine RBC Urine WBC Ur Squamous Epith Cells Urine Bacteria Urine Osmolality U Random Total Protein U [place] Prot/Creat Ratio Ur Random Sodium 73.0 Urine Creatinine 28.79 Ur Creatinine mg/dL U Total Protein mg/dL Protein/Creatinin Ratio Urine Albumin (%) U Mpbla-1-Norkrykd (%) U Jwdgo-8-Wguczrtc (%) U Beta Globulin (%) U Gamma Globulin (%) Urine PEP Interpret YOHAN Screen YOHAN Titer YOHAN Titer 2 YOHAN Titer 3 YOHAN Pattern YOHAN Pattern 2 YOHAN Pattern 3 Proteinase 3 (PR3) Ab Myeloperoxidase Ab Glomerular Base Memb Ab Complement C3 Complement C4 Coronavirus (PCR) Hep Bs Antigen Hep Bs Antibody Hep B Core Total Ab Hepatitis C Ab (EIA) Influenza Type A (PCR) Influenza Type B (PCR) RSV RNA Qual (PCR) 06/15/20 06/16/20 06/16/20 21:59 05:22 05:22 WBC RBC Hgb 9.1 L Hct 27.9 L MCV MCH MCHC RDW Plt Count MPV Immature Gran % (Auto) Neut % (Auto) Lymph % (Auto) [place] % (Auto) Eos % (Auto) Baso % (Auto) Lymph # (Auto) [place] # (Auto) Eos # (Auto) Baso # (Auto) Abs Immat Gran (auto) Absolute Neuts (auto) Absolute Nucleated RBC Nucleated RBC % (auto) Smear Tech's Comments Smear Path Review Haptoglobin PT INR APTT Sodium 137 Potassium 5.1 Chloride 99 Carbon Dioxide 14 L Anion Gap 29 H BUN 147 H* Creatinine 12.85 H* Estim Creat Clear Calc 4.4 Estimated GFR 3 Random Glucose 195 H Osmolality Lactic Acid Calcium 7.5 L Phosphorus 11.8 H Magnesium Ferritin Total Bilirubin 0.3 Direct Bilirubin 0.2 AST 35 H ALT 71 H Alkaline Phosphatase 135 H D Lactate Dehydrogenase Total Creatine Kinase Troponin I High Sens Total Protein 5.5 L Total Protein (PEP) Albumin 2.7 L Albumin (PEP) Abnfn-0-Siplstnni Ebffy-0-Pzvoqmmrc Ygsm-1-Vzuiwlke Ecwa-3-Avjddpuv Gamma Globulins Abnorm Protein Band 1 Abnorm Protein Band 2 Abnorm Protein Band 3 PEP Interpretation Lipase Carcinoembryonic Ag CA 19-9 Antigen CA 27-29 CA 125 Antigen Procalcitonin Urine Color Urine Appearance Urine pH Ur Specific [place] Urine Protein Urine Glucose (UA) Urine Ketones Urine Blood Urine Nitrite Ur Leukocyte Esterase Urine RBC Urine WBC Ur Squamous Epith Cells Urine Bacteria Urine Osmolality 280 L U Random Total Protein U [place] Prot/Creat Ratio Ur Random Sodium Urine Creatinine Ur Creatinine mg/dL U Total Protein mg/dL Protein/Creatinin Ratio Urine Albumin (%) U Phxgu-1-Djwyehfj (%) U Ueloe-5-Vyqtctbz (%) U Beta Globulin (%) U Gamma Globulin (%) Urine PEP Interpret YOHAN Screen YOHAN Titer YOHAN Titer 2 YOHAN Titer 3 YOHAN Pattern YOHAN Pattern 2 YOHAN Pattern 3 Proteinase 3 (PR3) Ab Myeloperoxidase Ab Glomerular Base Memb Ab Complement C3 Complement C4 Coronavirus (PCR) Hep Bs Antigen Hep Bs Antibody Hep B Core Total Ab Hepatitis C Ab (EIA) Influenza Type A (PCR) Influenza Type B (PCR) RSV RNA Qual (PCR) 06/16/20 06/16/20 06/16/20 16:36 Unknown Unknown WBC RBC Hgb Hct MCV MCH MCHC RDW Plt Count MPV Immature Gran % (Auto) Neut % (Auto) Lymph % (Auto) [place] % (Auto) Eos % (Auto) Baso % (Auto) Lymph # (Auto) [place] # (Auto) Eos # (Auto) Baso # (Auto) Abs Immat Gran (auto) Absolute Neuts (auto) Absolute Nucleated RBC Nucleated RBC % (auto) Smear Tech's Comments Smear Path Review Haptoglobin PT INR APTT Sodium Potassium Chloride Carbon Dioxide Anion Gap BUN Creatinine Estim Creat Clear Calc Estimated GFR Random Glucose Osmolality Lactic Acid Calcium Phosphorus Magnesium Ferritin Total Bilirubin Direct Bilirubin AST ALT Alkaline Phosphatase Lactate Dehydrogenase Total Creatine Kinase Troponin I High Sens Total Protein Total Protein (PEP) Albumin Albumin (PEP) Fkkyp-8-Idzhnfcqx Kkvxt-6-Sqygzmeyf Anuh-9-Lmlheypp Mgfj-7-Tbdnbezf Gamma Globulins Abnorm Protein Band 1 Abnorm Protein Band 2 Abnorm Protein Band 3 PEP Interpretation Lipase Carcinoembryonic Ag CA 19-9 Antigen CA 27-29 CA 125 Antigen Procalcitonin Urine Color Urine Appearance Urine pH Ur Specific [place] Urine Protein Urine Glucose (UA) Urine Ketones Urine Blood Urine Nitrite Ur Leukocyte Esterase Urine RBC Urine WBC Ur Squamous Epith Cells Urine Bacteria Urine Osmolality U Random Total Protein 18 H U [place] Prot/Creat Ratio 0.694 H Ur Random Sodium Urine Creatinine 32.92 Ur Creatinine mg/dL 36 U Total Protein mg/dL 25 H Protein/Creatinin Ratio 694 H Urine Albumin (%) 100 U Gcawk-7-Ihalfbld (%) 0 U Zwuww-0-Ujbuadie (%) 0 U Beta Globulin (%) 0 U Gamma Globulin (%) 0 Urine PEP Interpret SEE NOTE YOHAN Screen YOHAN Titer YOHAN Titer 2 YOHAN Titer 3 YOHAN Pattern YOHAN Pattern 2 YOHAN Pattern 3 Proteinase 3 (PR3) Ab Myeloperoxidase Ab Glomerular Base Memb Ab Complement C3 Complement C4 Coronavirus (PCR) Hep Bs Antigen Negative Hep Bs Antibody NONREACTIVE Hep B Core Total Ab Nonreactive Hepatitis C Ab (EIA) Nonreactive Influenza Type A (PCR) Influenza Type B (PCR) RSV RNA Qual (PCR) 06/17/20 06/17/20 06/17/20 06:53 06:53 06:53 WBC 18.0 H RBC 3.33 L Hgb 9.1 L Hct 27.6 L MCV 82.9 MCH 27.3 MCHC 33.0 RDW 14.8 Plt Count 504 H MPV 10.4 Immature Gran % (Auto) Neut % (Auto) Lymph % (Auto) [place] % (Auto) Eos % (Auto) Baso % (Auto) Lymph # (Auto) [place] # (Auto) Eos # (Auto) Baso # (Auto) Abs Immat Gran (auto) Absolute Neuts (auto) Absolute Nucleated RBC 0.030 H Nucleated RBC % (auto) 0.2 Smear Tech's Comments Smear Path Review Haptoglobin PT INR APTT Sodium 138 Potassium 4.6 Chloride 101 Carbon Dioxide 17 L Anion Gap 25 H BUN 93 H* D Creatinine 8.70 H* Estim Creat Clear Calc 6.5 Estimated GFR 5 Random Glucose 149 H Osmolality Lactic Acid Calcium 8.0 L D Phosphorus Magnesium Ferritin Total Bilirubin Direct Bilirubin AST ALT Alkaline Phosphatase Lactate Dehydrogenase Total Creatine Kinase Troponin I High Sens Total Protein Total Protein (PEP) Albumin Albumin (PEP) Zpzsa-1-Djslnetxx Zcfne-1-Gtyymxcgi Nalb-4-Miytgvdp Cvlf-4-Xzcjboeb Gamma Globulins Abnorm Protein Band 1 Abnorm Protein Band 2 Abnorm Protein Band 3 PEP Interpretation Lipase Carcinoembryonic Ag CA 19-9 Antigen CA 27-29 CA 125 Antigen Procalcitonin 0.66 Urine Color Urine Appearance Urine pH Ur Specific [place] Urine Protein Urine Glucose (UA) Urine Ketones Urine Blood Urine Nitrite Ur Leukocyte Esterase Urine RBC Urine WBC Ur Squamous Epith Cells Urine Bacteria Urine Osmolality U Random Total Protein U [place] Prot/Creat Ratio Ur Random Sodium Urine Creatinine Ur Creatinine mg/dL U Total Protein mg/dL Protein/Creatinin Ratio Urine Albumin (%) U Mwhcw-1-Zpdpvnbw (%) U Ufeej-2-Vhhefsls (%) U Beta Globulin (%) U Gamma Globulin (%) Urine PEP Interpret YOHAN Screen YOHAN Titer YOHAN Titer 2 YOHAN Titer 3 YOHAN Pattern YOHAN Pattern 2 YOHAN Pattern 3 Proteinase 3 (PR3) Ab Myeloperoxidase Ab Glomerular Base Memb Ab Complement C3 Complement C4 Coronavirus (PCR) Hep Bs Antigen Hep Bs Antibody Hep B Core Total Ab Hepatitis C Ab (EIA) Influenza Type A (PCR) Influenza Type B (PCR) RSV RNA Qual (PCR) 06/18/20 06/18/20 06/20/20 07:00 07:00 05:37 WBC 17.5 H RBC 2.90 L Hgb 8.0 L Hct 24.5 L MCV 84.5 MCH 27.6 MCHC 32.7 RDW 15.2 Plt Count 422 H MPV 11.0 Immature Gran % (Auto) 3.5 H Neut % (Auto) 84.5 H Lymph % (Auto) 6.1 L [place] % (Auto) 5.7 Eos % (Auto) 0.0 Baso % (Auto) 0.2 Lymph # (Auto) 1.1 L [place] # (Auto) 1.0 Eos # (Auto) 0.0 Baso # (Auto) 0.0 Abs Immat Gran (auto) 0.61 H Absolute Neuts (auto) 14.8 H Absolute Nucleated RBC 0.040 H Nucleated RBC % (auto) 0.2 Smear Tech's Comments Smear Path Review Haptoglobin PT INR APTT Sodium 139 138 Potassium 4.0 3.7 Chloride 104 103 Carbon Dioxide 20 L 24 Anion Gap 19 15 BUN 48 H 45 H Creatinine 4.88 H* 3.84 H Estim Creat Clear Calc 11.5 14.5 Estimated GFR 9 12 Random Glucose 138 H 102 Osmolality Lactic Acid Calcium 7.7 L 7.9 L Phosphorus 6.0 H Magnesium Ferritin Total Bilirubin 0.2 Direct Bilirubin AST 40 H ALT 77 H Alkaline Phosphatase 109 Lactate Dehydrogenase Total Creatine Kinase Troponin I High Sens Total Protein 5.0 L Total Protein (PEP) Albumin 2.6 L Albumin (PEP) Uzeoe-8-Ktyvwstgm Ehanb-9-Fcpmcyutc Vuxk-8-Phrnejtl Zkuc-3-Vjzvmuue Gamma Globulins Abnorm Protein Band 1 Abnorm Protein Band 2 Abnorm Protein Band 3 PEP Interpretation Lipase Carcinoembryonic Ag CA 19-9 Antigen CA 27-29 CA 125 Antigen Procalcitonin Urine Color Urine Appearance Urine pH Ur Specific [place] Urine Protein Urine Glucose (UA) Urine Ketones Urine Blood Urine Nitrite Ur Leukocyte Esterase Urine RBC Urine WBC Ur Squamous Epith Cells Urine Bacteria Urine Osmolality U Random Total Protein U [place] Prot/Creat Ratio Ur Random Sodium Urine Creatinine Ur Creatinine mg/dL U Total Protein mg/dL Protein/Creatinin Ratio Urine Albumin (%) U Pprvv-3-Fquyeyfb (%) U Qfhgf-9-Emwtammg (%) U Beta Globulin (%) U Gamma Globulin (%) Urine PEP Interpret YOHAN Screen YOHAN Titer YOHAN Titer 2 YOHAN Titer 3 YOHAN Pattern YOHAN Pattern 2 YOHAN Pattern 3 Proteinase 3 (PR3) Ab Myeloperoxidase Ab Glomerular Base Memb Ab Complement C3 Complement C4 Coronavirus (PCR) Hep Bs Antigen Hep Bs Antibody Hep B Core Total Ab Hepatitis C Ab (EIA) Influenza Type A (PCR) Influenza Type B (PCR) RSV RNA Qual (PCR) 06/20/20 06/20/20 06/21/20 05:37 05:38 05:22 WBC 26.6 H 22.1 H RBC 3.42 L 3.27 L Hgb 9.2 L 8.8 L Hct 29.3 L 27.9 L MCV 85.7 85.3 MCH 26.9 L 26.9 L MCHC 31.4 31.5 RDW 15.2 15.3 Plt Count 355 331 MPV 11.1 10.9 Immature Gran % (Auto) 5.0 H 4.2 H Neut % (Auto) 80.8 H 82.1 H Lymph % (Auto) 9.5 L 9.1 L [place] % (Auto) 4.2 4.2 Eos % (Auto) 0.3 0.2 Baso % (Auto) 0.2 0.2 Lymph # (Auto) 2.5 2.0 [place] # (Auto) 1.1 0.9 Eos # (Auto) 0.1 0.0 Baso # (Auto) 0.0 0.0 Abs Immat Gran (auto) 1.33 H 0.92 H Absolute Neuts (auto) 21.5 H 18.1 H Absolute Nucleated RBC 0.370 H 0.340 H Nucleated RBC % (auto) 1.4 H 1.5 H Smear Tech's Comments VERIFIED Smear Path Review SEE NOTE Haptoglobin PT INR APTT Sodium Potassium Chloride Carbon Dioxide Anion Gap BUN Creatinine Estim Creat Clear Calc Estimated GFR Random Glucose Osmolality Lactic Acid Calcium Phosphorus Magnesium Ferritin Total Bilirubin Direct Bilirubin AST ALT Alkaline Phosphatase Lactate Dehydrogenase Total Creatine Kinase Troponin I High Sens Total Protein Total Protein (PEP) Albumin Albumin (PEP) Ovchc-8-Nzlvlxsyo Mwmca-5-Utekxcwvr Umde-5-Rhhsoaoj Olnv-7-Ldsunjqv Gamma Globulins Abnorm Protein Band 1 Abnorm Protein Band 2 Abnorm Protein Band 3 PEP Interpretation Lipase Carcinoembryonic Ag CA 19-9 Antigen CA 27-29 CA 125 Antigen Procalcitonin 0.51 Urine Color Urine Appearance Urine pH Ur Specific [place] Urine Protein Urine Glucose (UA) Urine Ketones Urine Blood Urine Nitrite Ur Leukocyte Esterase Urine RBC Urine WBC Ur Squamous Epith Cells Urine Bacteria Urine Osmolality U Random Total Protein U [place] Prot/Creat Ratio Ur Random Sodium Urine Creatinine Ur Creatinine mg/dL U Total Protein mg/dL Protein/Creatinin Ratio Urine Albumin (%) U Zlljo-9-Kmfxfofn (%) U Zffqr-0-Zosiemfe (%) U Beta Globulin (%) U Gamma Globulin (%) Urine PEP Interpret YOHAN Screen YOHAN Titer YOHAN Titer 2 YOHAN Titer 3 YOHAN Pattern YOHAN Pattern 2 YOHAN Pattern 3 Proteinase 3 (PR3) Ab Myeloperoxidase Ab Glomerular Base Memb Ab Complement C3 Complement C4 Coronavirus (PCR) Hep Bs Antigen Hep Bs Antibody Hep B Core Total Ab Hepatitis C Ab (EIA) Influenza Type A (PCR) Influenza Type B (PCR) RSV RNA Qual (PCR) 06/21/20 06/21/20 05:22 05:22 WBC RBC Hgb Hct MCV MCH MCHC RDW Plt Count MPV Immature Gran % (Auto) Neut % (Auto) Lymph % (Auto) [place] % (Auto) Eos % (Auto) Baso % (Auto) Lymph # (Auto) [place] # (Auto) Eos # (Auto) Baso # (Auto) Abs Immat Gran (auto) Absolute Neuts (auto) Absolute Nucleated RBC Nucleated RBC % (auto) Smear Tech's Comments Smear Path Review Haptoglobin PT 11.6 INR 1.0 APTT Sodium 141 Potassium 3.7 Chloride 105 Carbon Dioxide 22 Anion Gap 18 BUN 64 H Creatinine 4.85 H* Estim Creat Clear Calc 11.4 Estimated GFR 9 Random Glucose 111 Osmolality Lactic Acid Calcium 7.8 L Phosphorus Magnesium Ferritin Total Bilirubin Direct Bilirubin AST ALT Alkaline Phosphatase Lactate Dehydrogenase Total Creatine Kinase Troponin I High Sens Total Protein Total Protein (PEP) Albumin Albumin (PEP) Mzaob-7-Tkcralqge Eoqmm-2-Xqeoochmw Wedj-7-Hqafteoo Wbbi-2-Khzaxpix Gamma Globulins Abnorm Protein Band 1 Abnorm Protein Band 2 Abnorm Protein Band 3 PEP Interpretation Lipase Carcinoembryonic Ag CA 19-9 Antigen CA 27-29 CA 125 Antigen Procalcitonin Urine Color Urine Appearance Urine pH Ur Specific [place] Urine Protein Urine Glucose (UA) Urine Ketones Urine Blood Urine Nitrite Ur Leukocyte Esterase Urine RBC Urine WBC Ur Squamous Epith Cells Urine Bacteria Urine Osmolality U Random Total Protein U [place] Prot/Creat Ratio Ur Random Sodium Urine Creatinine Ur Creatinine mg/dL U Total Protein mg/dL Protein/Creatinin Ratio Urine Albumin (%) U Mwahp-1-Ziinuale (%) U Byvgc-4-Elwmvuex (%) U Beta Globulin (%) U Gamma Globulin (%) Urine PEP Interpret YOHAN Screen YOHAN Titer YOHAN Titer 2 YOHAN Titer 3 YOHAN Pattern YOHAN Pattern 2 YOHAN Pattern 3 Proteinase 3 (PR3) Ab Myeloperoxidase Ab Glomerular Base Memb Ab Complement C3 Complement C4 Coronavirus (PCR) Hep Bs Antigen Hep Bs Antibody Hep B Core Total Ab Hepatitis C Ab (EIA) Influenza Type A (PCR) Influenza Type B (PCR) RSV RNA Qual (PCR)
--- NOTE | 2020-06-21 10:45 | MHC.SHP ---
Pre-Procedural Eval Section B Chief Complaint: pna vs cancer, helen Allergies: Allergies Allergy/AdvReac Type Severity Reaction Status Date / Time No Known Allergies Allergy Verified 06/12/20 15:17 Plan I have reviewed the history and physical and performed a pertinent physical examination on my patient. No changes have occurred unless specified.
--- NOTE | 2020-06-21 13:16 | MHC.CM.PN ---
Patient is NPO for a bronch procedure today. Patient continues to need a tunneled catheter placed for HD. Discharge plan is home no services. family will provide transport. CM will continue to follow for discharge needs.
--- NOTE | 2020-06-21 13:30 | PM.OP ---
Brief Operative Note Date of Service: 06/21/20 Pre-op diagnosis: lumg mass Post-op diagnosis: same Procedure: Bronchoscpoy with BAL and transbronchial biopsies Surgeon: Rolf Anne MD Anesthesia: GETA Estimated blood loss (mL): 10 Pathology: other (LLL transbronchial bx, LLL endobronchial biopsies) Condition: stable Disposition: floor
--- NOTE | 2020-06-21 14:27 | MHC.CLN ---
F/U PT IS CURRENTLY NPO FOR A PROCEDURE TODAY WHEN DIET TO ADVANCE; RECOMMEND RE-STARTING ENSURE BID TO INCREASE KCALS SUPPLEMENT TO PROVIDE 700KCALS, 40G PROTEIN PT PREFERS LISA [facility] FOLLOWING
[2020-06-21 15:11] LABS: Eosinophils Bronchial 1 %; Lymphocytes Bronchial 3 %; Monocytes Bronchial 2 %; Neutrophils Bronchial 92 %; RBC Bronchial Washing 15200 MM*3; WBC Bronchial Washing 50 MM*3
[2020-06-21 15:12] LABS: Other Bronchial 2 %
--- NOTE | 2020-06-21 15:24 | P.DS_ITS ---
DS: Providers Provider Date of Service: 06/21/20 Date of admission: 06/13/20 00:13 Primary care physician: Christophe Mayo MD [facility], [address] [address] Consults: 06/13/20 00:24 Consult to Nephrology Routine Consulting Provider: [facility] Reason for consultation: billie Has provider been notified: No 06/13/20 03:35 Consult to Hematology / Oncology Routine Consulting Provider: Patricia Gil Reason for consultation: lung cancer? 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: Status: Acute (3) Lung nodules: Status: Acute (4) Dependence on renal dialysis: Status: Acute (5) Hyperkalemia: Status: Acute DS: Medications Discharge Medications Home Medications: Home Medications Medication Instructions Recorded Confirmed amlodipine 1 tab PO QPM 06/12/20 06/12/20 atorvastatin 1 tab PO QPM 06/12/20 06/12/20 Previous Rx's Medication Instructions Recorded heparin (porcine) 5,000 unit SUBCUT Q12H #1 ml 06/21/20 prednisone 60 mg PO DAILY #1 tab 06/21/20 sodium bicarbonate 1,300 mg PO TID #1 tab 06/21/20 DS: Summary Hospital Course Hospital Course: From the history and physical by admitting hospitalist Sol Motta, 06/13/20: This 69-year-old female with past medical history of hypertension and hyperlipidemia presents to the hospital with progressive the worsening fatigue, malaise, and generalized weakness. Patient reports that in April she started feeling weak, sister developing weight loss a total of about 20 or more lb since April on intentional, as well as overall just feeling sick since April but worsened in the past 15 days. Patient has low appetite but tries to stay hydrated. She reports a dry cough with no fever, has chills, no abdominal pain nausea or vomiting but has heartburn, no diarrhea but rather has constipation, no urinary symptoms and no lower extremity edema. Has no weakness numbness or tingling, no headache or change in vision. Around any sick contacts and no recent travel. On arrival to the ED hemodynamically stable with a temperature of 97.9?, heart rate of 107, respiratory rate of 18, blood pressure 134/64, satting 96% on room air Labs are significant for WBC count of 17.1, hemoglobin of 11.5, platelets of 532, PT of 14.2, INR of 1.2, sodium of 128, chloride of 85, BUN of 121, creatinine of 11.69 no baseline for comparison, serum osmolarity of 310, ferritin of 3367, AST of 41, ALT of 93, alk-phos of 121, LDH of 336, procalcitonin of 1.84, COVID-19 negative, influenza A/B and RSV negative. Imaging including chest CT abdominal CT show multifocal masses throughout the lungs, some have central air and appear cavitary, others are in somewhat of a branching pattern. Differential diagnosis would include multifocal pneumonia versus metastatic disease. No mediastinal lymphadenopathy, no evidence of hepatic or osseous metastatic disease, left adrenal thickening which could represent metastatic disease, a small amount of free intraperitoneal fluid is seen with some mild inflammatory changes around the duodenum with no discrete mass, cholelithiasis with no cholecystitis, increased density of right breast compared with left with no discrete mass. Past medical history as below, when asked about her smoking history reports that she smoked from the age of [age] but has not smoked since. Does not drink alcohol and does not use drugs. Patient will be admitted for further management. The patient was admitted for acute kidney injury with hyperkalemia. She was started on hemodialysis and bicarbonate supplementation. 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 Renal biopsy was consistent with necrotizing granulomas as seen in granulomatosis with polyangiitis. She underwent induction therapy with pulse methylprednisolone then prednisone 60 mg/d, and was given her 1st dose of rituximab on 06/17/2020. Double positive disease was ruled out with a negative anti-GBM antibody. Due to initial concern of infectious etiology of her multifocal pulmonary infiltrates, she was treated with ceftriaxone and azithromycin as for pneumonia. Cultures were negative. She underwent bronchoscopy on 06/21/2020 which demonstrated extensive endobronchial lesions with aretha pus. Gram stain and fungal stains were negative for organisms. At that point, in consultation with Nephrology and Pulmonology, she was transfer [facility] to undergo plasma exchange. Time Spent with Patient Time attestation: Total time spent providing and/or coordinating discharge services: 60 Discharge coordination time: Greater than 30 minutes Physical Exam Vital Signs: Vital Signs: Last Vital Signs Temp 96.9 F 06/21/20 11:20 Pulse 92 06/21/20 12:04 Resp 20 06/21/20 12:04 BP 148/70 H 06/21/20 12:04 Pulse Ox 95 06/21/20 12:04 Body Mass Index 28.0 Gen: in no acute distress HEENT: sclera anicteric, moist mucus membranes Neck: RIJ HD catheter Lungs: diminished air entry bilaterally Heart: regular rate and rhythm, no murmurs Abd: soft, non-tender, non-distended Ext: no edema Skin: warm/well-perfused Neuro: alert and oriented x3, no focal findings Psych: appropriate affect DS: Data Data Completed and Pending Completed studies during hospitalization [Text1]: Pending at discharge 06/15/20 12:20 Surgical [PTH] Routine Pending studies at discharge: Pending at discharge 06/21/20 12:20 biopsies from bronchoscopy Surgical [PTH] Stat Cytology [PTH] Stat Labs on day of discharge: Laboratory Results WBC 22.1 X10*3/uL (4.8-10.8) H 06/21/20 05:22 RBC 3.27 X10*6/uL (4.20-5.50) L 06/21/20 05:22 Hgb 8.8 g/dl (12.0-16.0) L 06/21/20 05:22 Hct 27.9 % (37-47) L 06/21/20 05:22 MCV 85.3 fL (80-98) 06/21/20 05:22 MCH 26.9 pg (27.0-33.0) L 06/21/20 05:22 MCHC 31.5 g/dl (31.0-35.0) 06/21/20 05:22 RDW 15.3 % (11.0-16.0) 06/21/20 05:22 Plt Count 331 X10*3/uL (160-400) 06/21/20 05:22 MPV 10.9 fL (9.4-12.3) 06/21/20 05:22 Immature Gran % (Auto) 4.2 % (0.0-0.4) H 06/21/20 05:22 Neut % (Auto) 82.1 % (45-73) H 06/21/20 05:22 Lymph % (Auto) 9.1 % (20-40) L 06/21/20 05:22 [place] % (Auto) 4.2 % (2-11) 06/21/20 05:22 Eos % (Auto) 0.2 % (0-4) 06/21/20 05:22 Baso % (Auto) 0.2 % (0-2) 06/21/20 05:22 Lymph # (Auto) 2.0 X10*3/uL (1.2-4.9) 06/21/20 05:22 [place] # (Auto) 0.9 X10*3/uL (0.1-1.2) 06/21/20 05:22 Eos # (Auto) 0.0 X10*3/uL (0.0-0.4) 06/21/20 05:22 Baso # (Auto) 0.0 X10*3/uL (0.0-0.2) 06/21/20 05:22 Abs Immat Gran (auto) 0.92 X10*3/uL (0.00-0.03) H 06/21/20 05:22 Absolute Neuts (auto) 18.1 X10*3/uL (2.0-8.3) H 06/21/20 05:22 Absolute Nucleated RBC 0.340 X10*3/uL (0.0-0.012) H 06/21/20 05:22 Nucleated RBC % (auto) 1.5 /100WBC (0.0-0.2) H 06/21/20 05:22 Smear Tech's Comments VERIFIED 06/20/20 05:38 Smear Path Review SEE NOTE 06/20/20 05:38 Haptoglobin 545 mg/dL (43-212) H 06/15/20 08:44 PT 11.6 SEC (10.8-13.0) 06/21/20 05:22 INR 1.0 (0.9-1.1) 06/21/20 05:22 APTT 28.4 SEC (24.1-38.0) 06/12/20 20:41 Sodium 141 mmol/L (135-145) 06/21/20 05:22 Potassium 3.7 mmol/L (3.3-5.1) 06/21/20 05:22 Chloride 105 mmol/L (96-108) 06/21/20 05:22 Carbon Dioxide 22 mmol/L (22-29) 06/21/20 05:22 Anion Gap 18 (12-20) 06/21/20 05:22 BUN 64 mg/dL (9-16) H 06/21/20 05:22 Creatinine 4.85 mg/dL (0.5-1.4) H* 06/21/20 05:22 Estim Creat Clear Calc 11.4 06/21/20 05:22 Estimated GFR 9 06/21/20 05:22 Random Glucose 111 mg/dL (60-115) 06/21/20 05:22 Osmolality 310 mosm/kg (281-305) H 06/13/20 03:24 Lactic Acid 1.0 mmol/L (0.5-2.0) 06/12/20 22:30 Calcium 7.8 mg/dL (8.4-10.2) L 06/21/20 05:22 Phosphorus 6.0 mg/dL (2.7-4.5) H 06/18/20 07:00 Magnesium 2.4 mg/dL (1.6-2.6) 06/12/20 20:41 Ferritin 3367 ng/mL (10-250) H 06/12/20 20:41 Total Bilirubin 0.2 mg/dL (0.0-1.0) 06/18/20 07:00 Direct Bilirubin 0.2 mg/dL (0.0-0.5) 06/16/20 05:22 AST 40 U/L (5-31) H 06/18/20 07:00 ALT 77 U/L (0-31) H 06/18/20 07:00 Alkaline Phosphatase 109 U/L (39-117) 06/18/20 07:00 Lactate Dehydrogenase 305 U/L (122-220) H 06/15/20 08:44 Total Creatine Kinase 42 U/L (26-140) D 06/14/20 06:20 Troponin I High Sens 27.2 ng/L (<3.5-17.0) H 06/13/20 03:24 Total Protein 5.0 g/dL (6.5-8.0) L 06/18/20 07:00 Total Protein (PEP) 5.6 g/dL (6.1-8.1) L 06/15/20 08:44 Albumin 2.6 g/dL (3.5-5.0) L 06/18/20 07:00 Albumin (PEP) 2.0 g/dL (3.8-4.8) L 06/15/20 08:44 Dwqcl-2-Htlstngwc 0.8 g/dL (0.2-0.3) H 06/15/20 08:44 Xbmpy-8-Sczbjfodr 1.3 g/dL (0.5-0.9) H 06/15/20 08:44 Mpoa-5-Qukrhumy 0.2 g/dL (0.4-0.6) L 06/15/20 08:44 Hygs-9-Pokoayxg 0.4 g/dL (0.2-0.5) 06/15/20 08:44 Gamma Globulins 1.0 g/dL (0.8-1.7) 06/15/20 08:44 Abnorm Protein Band 1 TNP 06/15/20 08:44 Abnorm Protein Band 2 TNP 06/15/20 08:44 Abnorm Protein Band 3 TNP 06/15/20 08:44 PEP Interpretation SEE NOTE 06/15/20 08:44 Lipase 62 U/L (8-78) 06/12/20 20:41 Carcinoembryonic Ag 0.60 ng/mL 06/15/20 08:44 CA 19-9 Antigen 22 U/mL (<34) 06/15/20 08:44 CA 27-29 18 U/mL (<38) 06/15/20 08:44 CA 125 Antigen 107 U/mL (<35) H 06/15/20 08:44 Procalcitonin 0.51 ng/mL 06/20/20 05:37 Urine Color YELLOW 06/13/20 09:48 Urine Appearance CLOUDY 06/13/20 09:48 Urine pH 6.0 (5.0-8.0) 06/13/20 09:48 Ur Specific [place] 1.015 (1.005-1.025) 06/13/20 09:48 Urine Protein 2+ MG/DL (NEG-TRACE) H 06/13/20 09:48 Urine Glucose (UA) NEG MG/DL (NEG) 06/13/20 09:48 Urine Ketones NEG MG/DL (NEG) 06/13/20 09:48 Urine Blood 2+ (NEG) H 06/13/20 09:48 Urine Nitrite NEG (NEG) 06/13/20 09:48 Ur Leukocyte Esterase 2+ (NEG) H 06/13/20 09:48 Urine RBC 1-4 /HPF (0) 06/13/20 09:48 Urine WBC 10-14 /HPF (0-4) H 06/13/20 09:48 Ur Squamous Epith Cells 3+ /LPF 06/13/20 09:48 Urine Bacteria 2+ /LPF 06/13/20 09:48 Urine Osmolality 280 mosm/kg (373-1093) L 06/15/20 21:59 U Random Total Protein 18 mg/dL (<12) H 06/16/20 Unknown U [place] Prot/Creat Ratio 0.694 (0.021-0.161) H 06/16/20 Unknown Ur Random Sodium 73.0 mmol/L 06/15/20 21:59 Urine Creatinine 32.92 mg/dL 06/16/20 Unknown Ur Creatinine mg/dL 36 mg/dL (20-275) 06/16/20 Unknown U Total Protein mg/dL 25 mg/dL (5-24) H 06/16/20 Unknown Protein/Creatinin Ratio 694 mg/g creat (21-161) H 06/16/20 Unknown Urine Albumin (%) 100 % 06/16/20 Unknown U Tadpb-1-Qfsqkzsp (%) 0 % 06/16/20 Unknown U [place]uazu-6-Nonrhezz (%) 0 % 06/16/20 Unknown U Beta Globulin (%) 0 % 06/16/20 Unknown U Gamma Globulin (%) 0 % 06/16/20 Unknown U Abnormal Prot Band 1 TNP 06/16/20 Unknown U Abnormal Prot Band 2 TNP 06/16/20 Unknown U Abnormal Prot Band 3 TNP 06/16/20 Unknown Urine PEP Interpret SEE NOTE 06/16/20 Unknown Bronchial Fluid WBC 50 MM*3 06/21/20 11:21 Bronchial Fluid [place] 58316 MM*3 06/21/20 11:21 Bronchial Neutrophils 92 % 06/21/20 11:21 Bronchial Lymphocytes 3 % 06/21/20 11:21 Bronchial Monocytes 2 % 06/21/20 11:21 Bronchial Eosinophils 1 % 06/21/20 11:21 Bronchial Other Cells 2 % 06/21/20 11:21 YOHAN Screen NEGATIVE (NEGATIVE) 06/13/20 06:25 YOHAN Titer TNP 06/13/20 06:25 YOHAN Titer 2 TNP 06/13/20 06:25 YOHAN Titer 3 TNP 06/13/20 06:25 YOHAN Pattern TNP 06/13/20 06:25 YOHAN Pattern 2 TNP 06/13/20 06:25 YOHAN Pattern 3 TNP 06/13/20 06:25 Proteinase 3 (PR3) Ab 6.5 AI H 06/13/20 06:25 Myeloperoxidase Ab <1.0 AI 06/13/20 06:25 Glomerular Base Memb Ab <1.0 AI 06/15/20 08:44 Complement C3 138 mg/dL (83-193) 06/13/20 06:25 Complement C4 24 mg/dL (15-57) 06/13/20 06:25 Coronavirus (PCR) NEGATIVE (Negative) 06/12/20 20:41 Hep Bs Antigen Negative (Negative) 06/16/20 16:36 Hep Bs Antibody NONREACTIVE (Nonreactive) 06/16/20 16:36 Hep B Core Total Ab Nonreactive (Nonreactive) 06/16/20 16:36 Hepatitis C Ab (EIA) Nonreactive (Nonreactive) 06/16/20 16:36 Influenza Type A (PCR) NEGATIVE (Negative) 06/12/20 20:41 Influenza Type B (PCR) NEGATIVE (Negative) 06/12/20 20:41 RSV RNA Qual (PCR) NEGATIVE (Negative) 06/12/20 20:41 Impressions Abdomen/Pelvis CT 06/12/20 21:43 IMPRESSION: 1. Multifocal masses throughout the lungs. Some have central air and appear cavitary. Others are in somewhat of a branching pattern. Differential diagnosis would include multifocal pneumonia versus metastatic disease. Biopsy would be beneficial at differentiating these 2 possibilities. 2. No associated mediastinal lymphadenopathy. 3. No evidence of hepatic or osseous metastatic disease. 4. Left adrenal thickening which could represent metastatic disease. 5. A small amount of free intraperitoneal fluid is seen with some mild inflammatory changes around the duodenum as described above. A discrete mass lesion is not seen. 6. There is cholelithiasis without cholecystitis. 7. Increased density right breast compared with the left but a discrete mass is not seen. This critical result was discussed with DELPHINE Marrero at 10:45 PM on the evening of the exam and it was ascertained that the content and urgency of the report was understood at the time of direct communication. Insertion Tunneled Catheter 06/15/20 10:30 IMPRESSION: Right internal jugular 11.5 [place] 13 cm in length [place] dialysis catheter placement. Renal Biopsy CT 06/15/20 12:44 IMPRESSION: Successful ultrasound-guided core biopsy lower pole of the left kidney. Chest CT 06/20/20 08:00 IMPRESSION: There is mixed appearance of the solid and cavitary pulmonary nodules and masses compared to 06/12/2020 exam. This favors an infectious or inflammatory process. Infections such as fungal infection, RICKY, TB, septic emboli as well as a granulomatous disease and vasculitis should be considered. Chest X-Ray 06/21/20 11:15 IMPRESSION: No pneumothorax post bronchoscopy. Stable bilateral pulmonary nodules/masses. Discharge Plan Discharge Anticipated Discharge Date/Time: 06/21/20 15:19 Patient Disposition: er Acute Care Hospital Discharge Diagnosis: Granulomatosis with polyangiitis Referrals: [facility] [Outside] - 1 Week Christophe Mayo MD [Physician] - Discharge Medications: New prednisone 20 mg Tablet 60 mg PO DAILY Qty: 1 RF: 0 sodium bicarbonate 650 mg Tablet 1,300 mg PO TID Qty: 1 RF: 0 heparin (porcine) 5,000 unit/mL Solution 5,000 unit subcut Q12H Qty: 1 RF: 0 Continued atorvastatin 10 mg tablet 1 tab PO QPM RF: 0 amlodipine 5 mg tablet 1 tab PO QPM RF: 0 Discharge Orders: Discharge Order (Routine); Ordered 06/21/20 Ordered By: Joselin White Diet: advance to usual diet Activity on Discharge: As tolerated Stand Alone Forms: Patient Portal Discharge page Care Plan Goals: definitive treatment of GPA Health Concerns: GPA hemodialysis dependence Plan of Treatment: transfer to [facility] for plasma exchange Assessment: GPA Patient Instructions: Granulomatosis with Polyangiitis (DC)
--- NOTE | 2020-06-21 15:34 | MHC.CM.PN ---
pt dcd to [facility]
--- NOTE | 2020-06-21 16:32 | HO.RADPN ---
RADIOLOGY Narrative Narrative: Right temporary dialysis catheter exchanged for a 14.5 Fr Palindrome permacath. Tip at cavoatrial junction.
--- NOTE | 2020-06-21 21:51 | OP_ITS ---
SURGEON: Rolf Anne MD PREOPERATIVE DIAGNOSIS: Vasculitis and lung mass. POSTOPERATIVE DIAGNOSIS: Vasculitis and lung mass with endobronchial lesion suggesting endobronchial involvement of vasculitis. PROCEDURE PERFORMED: Bronchoscopy with BAL and transbronchial biopsies. ESTIMATED BLOOD LOSS: COMPLICATIONS: ANESTHESIA: General anesthesia. ASSISTANTS: SPECIMENS: ASA: 4 DESCRIPTION OF PROCEDURE: After the patient was adequately sedated, the flexible digital bronchoscope was inserted over the ET tube to the level of the main sara. Main sara appeared to be slightly inflamed, but otherwise no other abnormalities. After instilling additional lidocaine, the bronchoscope was then navigated to the entire tracheobronchial tree which was examined to the subsegmental level. The patient had evidence of endobronchial abnormalities in the left upper lobe area, where she had some raised mucosal tissue, which was inflamed and very friable to the touch. In addition to that, the patient did have purulent looking secretions from both the left upper lobe and also the right middle lobe. The bronchoscope was navigated to the left lower lobe, where BAL was stented and with 50 mL of normal saline recovering back only around 12 mL of bloody return, which could have been from the , but also could have been contaminated from the very friable mucosa. The BAL was sent for cell count and also for hemosiderin-laden macrophages. The patient also had bronchial washings collected afterwards to collect the residual fluid. The bronchoscope was navigated again to the left lower lobe, where transbronchial biopsies were collected and sent to both pathology and also microbiology. The bronchoscope was then navigated to the left upper lobe, where she had endobronchial lesions and endobronchial biopsies were collected and sent also to pathology. The patient did have some bleeding, so therefore, epinephrine was used to the area with good hemostasis. Bronchial washings were collected bilaterally and sent for both microbiology and cytology. The bronchoscope was then removed. The total endoscopic time approximately 25 minutes. The patient tolerated the procedure well. INTERPRETATION: 1. Bronchoalveolar lavage from the left lower lobe. 2. Transbronchial biopsies in the left lower lobe. 3. Endobronchial biopsies from the left upper lobe area where she had the endobronchial lesions. 4. Bronchial washings bilaterally. 5. Epinephrine use for a total of 1 mL of 1:1000 mixed in with saline. Rolf Anne MD MR/MODL / [id number]
== END 2020-06-21 18:55 | disposition short-term general hospital (02) | DRG 673 ==
LOC: HO.ED 19:28 → HO.EDOVER 06-13 00:23 → HO.IMC 06-13 14:18
PROVIDERS: Hospitalist; Internal Medicine; Internal Medicine Hypertension Specialist; Internal Medicine Medical Oncology; Physician Assistant; Radiology Diagnostic Radiology; Admitting Provider Internal Medicine; Emergency Provider Internal Medicine; PCP Family Medicine; Visit Provider Family Medicine
PROC: 0BJ08ZZ Inspection of Tracheobronchial Tree, Via Natural or Artificial Opening Endoscopic (ICD-10-PCS; CPT 31622; principal; 2020-06-21 10:10)
DX: N17.9 Acute kidney failure, unspecified (principal); J18.9 Pneumonia, unspecified organism; M31.31 Wegener's granulomatosis with renal involvement; E87.2 Acidosis; E44.1 Mild protein-calorie malnutrition; D72.829 Elevated white blood cell count, unspecified; D64.9 Anemia, unspecified; Z68.28 Body mass index [BMI] 28.0-28.9, adult; E78.5 Hyperlipidemia, unspecified; Z20.822 Contact with and (suspected) exposure to COVID-19; Z87.891 Personal history of nicotine dependence; Z79.899 Other long term (current) drug therapy
CPT/HCPCS: 0241U; 36415; 36558; 50200; 71045; 71250; 74176; 76937; 77012; 80048; 80053; 80076; 81001; 81003; 82378; 82550; 82570; 82728; 83010; 83520; 83605; 83615; 83690; 83735; 83930; 83935; 84100; 84145; 84155; 84156; 84165; 84166; 84300; 84484; 85014; 85018; 85025; 85027; 85610; 85730; 86021; 86038; 86039; 86160; 86300; 86301; 86304; 86704; 86706; 86803; 87040; 87071; 87073; 87086; 87102; 87116; 87205; 87340; 88112; 88300; 88305; 88313; 88346; 88348; 88350; 89051; 90999; 93005; 96365; 96366; 96368; 97162; 99284; 99285; C1752; C1769; J0171; J0456; J0696; J0885; J2405; J2930; J3010; J9312; Q0163

== ENCOUNTER 2020-07-05 13:38 | Outpatient (REF) | payer MEDICARE, OTHER, SELFPAY ==
--- NOTE | ~2020-07-05 | XR_ITS ---
EXAMINATION: XR CHEST CLINICAL INFORMATION: Anahy's granulomatosis with renal involvement COMPARISON: Previous chest x-rays most recent 06/21/[address] most recent 06/20/2020 TECHNIQUE: 2 views of the chest were obtained. FINDINGS: The cardiac and mediastinal contours are stable. There is interval decrease in pulmonary nodules. There is a 1.5 x 2.5 cm left pulmonary nodule projecting over the anterior third rib adjacent to the hilum. This is decreased in size from 2.2 x 3 cm on previous exam. Larger pulmonary nodule at the left lung base is not well appreciated on the PA view. This measures 3.4 x 4.5 cm on the lateral view. This measured 3.3 x 8.7 cm on sagittal reconstructed image 24 series 6 from 06/20/[address] scan and appears decreased in size. No new pulmonary nodules are seen. There is no pleural effusion or pneumothorax. There is a right jugular dialysis catheter with tip projecting over the SVC. There are degenerative changes of the spine. XR/XR chest 2V IMPRESSION: Interval decrease in pulmonary nodules.
== END 2020-07-05 13:39 | disposition home or self-care (01) ==
LOC: HO.XRAY 13:38
PROVIDERS: PCP Physician Assistant; Visit Provider Internal Medicine
DX: M31.30 Wegener's granulomatosis without renal involvement (principal); Z79.52 Long term (current) use of systemic steroids
CPT/HCPCS: 71046; 99212

== ENCOUNTER 2020-07-10 11:54 | Outpatient (REF) | payer MEDICARE, OTHER, SELFPAY ==
[2020-07-10 14:26] LABS: Hematocrit 26.3 % (37-47); Hemoglobin 8.3 g/dl (12.0-16.0); Mean Corpuscular HGB Conc 31.6 g/dl (31.0-35.0); Mean Corpuscular Hemoglobin 28.8 pg (27.0-33.0); Mean Corpuscular Volume 91.3 fL (80-98); Mean Platelet Volume 11.2 fL (9.4-12.3); Platelet Count 341 X10*3/uL (160-400); Red Blood Count 2.88 X10*6/uL (4.20-5.50); Red Cell Distribution Width 22.7 % (11.0-16.0); White Blood Count 10.4 X10*3/uL (4.8-10.8)
[2020-07-10 15:06] LABS: Ferritin 996 ng/mL (10-250)
[2020-07-10 15:11] LABS: Anion Gap 16 (12-20); Blood Urea Nitrogen 98 mg/dL (9-16); Calcium 8.9 mg/dL (8.4-10.2); Carbon Dioxide 28 mmol/L (22-29); Chloride 97 mmol/L (96-108); Estimated Glomerular Filt Rate 10; Iron 48 mcg/dL (30-160); Percent Iron Saturation 17 % (15-50); Potassium 4.4 mmol/L (3.3-5.1); Sodium 137 mmol/L (135-145); Total Iron Binding Capacity 283 mcg/dL (228-428); Unsaturated Iron Binding 235 ug/dL
== END 2020-07-10 11:55 | disposition home or self-care (01) ==
LOC: HO.10HDL 11:54
PROVIDERS: Visit Provider Internal Medicine Nephrology
DX: I77.6 Arteritis, unspecified (principal)
CPT/HCPCS: 36415; 80051; 82310; 82565; 82728; 83540; 84520; 85027

== ENCOUNTER 2020-07-23 07:06 | Emergency (ER) | payer MEDICARE, OTHER, SELFPAY ==
--- NOTE | 2020-07-23 | ECG_ITS ---
Test Reason : CHEST PAIN Blood Pressure : / mmHG Vent. Rate : 106 BPM Atrial Rate : 106 BPM P-R Int : 132 ms QRS Dur : 074 ms QT Int : 358 ms P-R-T Axes : 071 040 016 degrees QTc Int : 475 ms Sinus tachycardia Possible Left atrial enlargement Nonspecific T wave abnormality Abnormal ECG When compared with ECG of 12-JUN-2020 20:14, Minimal criteria for Anterior infarct are no longer Present QT has lengthened Referred By: Generic ED Physician Electronically Signed By:Chon Hall
--- NOTE | ~2020-07-23 | XR_ITS ---
EXAMINATION: XR CHEST CLINICAL INFORMATION: Chest pain COMPARISON: Prior chest June 2020. Recent CT 06/20/2020 TECHNIQUE: Frontal view of the chest was obtained. FINDINGS: Persistent bilateral nodules lung and right lung without definite change. Cardiac silhouette mediastinum pulmonary vascularity are normal. Bone and soft tissues unremarkable. XR/XR chest 1V IMPRESSION: Stable bilateral pulmonary opacities prior CT
--- NOTE | ~2020-07-23 | NM_ITS ---
NM PULMONARY PERFUSION ONLY STUDY: CLINICAL INDICATION: Chest pain, elevated d-dimer. Smoking history. History of BILLIE. PROCEDURE: Following the intravenous administration of 4.0 millicuries technetium 99m MAA, images of the chest were obtained in multiple projections using a gamma scintiphotographic camera. COMPARISON: Chest radiograph done earlier today. CT of the chest done on 06/20/2020. PERFUSION IMAGES: No large segmental perfusion defects or other perfusion abnormalities are noted, on either side. NM/NM pul perfusion IMPRESSION: Based on perfusion only modified PIOPED 2 criteria, PE is absent.
[2020-07-23 07:18] VITALS: BP 186/90; PULSE 103; RESP 16; TEMP 36.9; O2SAT 97; BMI 26.3
--- NOTE | 2020-07-23 07:44 | ED.CHESTPAIN ---
HPI - Chest Pain General Chief Complaint: Chest Pain Stated Complaint: CHEST PAIN Time Seen by Provider: 07/23/20 07:20 Source: patient and family (Spouse) Limitations: no limitations History of Present Illness HPI narrative: 69 year-old female came to the emergency department for evaluation of chest pain. Pain started at 04:00 o'clock in the morning and woke the patient up from sleep, pain is localized to the mid chest area unable to describe the pain, no radiation of the pain, pain is moderate 5/10, taking a deep breath making the pain worse nothing make it better, pain is constant since started, patient never had chest pain in the past. Patient had a recent hospitalization for acute renal injury required dialysis, patient was diagnosed with vasculitis that required to be transferred to [facility] for plasmapheresis. Related Data Home Medications Medication Instructions Recorded Confirmed amlodipine 1 tab PO QPM 06/12/20 06/12/20 atorvastatin 1 tab PO QPM 06/12/20 06/12/20 cyclophosphamide 25 mg capsule 125 mg PO QAM 07/05/20 sevelamer carbonate 800 mg tablet 800 mg PO TID 07/05/20 Previous Rx's Medication Instructions Recorded prednisone 60 mg PO DAILY #1 tab 06/21/20 sodium bicarbonate 1,300 mg PO TID #1 tab 06/21/20 Allergies Allergy/AdvReac Type Severity Reaction Status Date / Time No Known Allergies Allergy Verified 07/05/20 13:51 Review of Systems Review of Systems: All other systems are reviewed and are negative Constitutional: Reports as per HPI and Reports no additional constitutional complaints Eyes: Reports as per HPI and Reports no additional eye complaints Reports system reviewed and no additional complaints, except as documented Cardiovascular: Reports as per HPI and Reports no additional cardiovascular complaints Respiratory: Reports as per HPI and Reports no additional respiratory complaints Gastrointestinal: Reports as per HPI and Reports no additional gastrointestinal complaints Genitourinary: Reports no additional female genitourinary complaints Musculoskeletal: Reports no additional musculoskeletal complaints Skin/Breast: Reports system reviewed and no additional complaints, except as docu Psychiatric: Reports no additional psychiatric complaints Endocrine: Reports no additional endocrine complaints Hematologic/Lymphatic: Reports no additional hematologic/lymphatic complaints Allergic/Immunologic: Reports no additional allergic/immunologic complaints Reports system reviewed and no additional complaints, except as documented and Reports Abnormal speech present PMFSH Past Medical History Medical History 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 Hyperlipidemia Hypertension Lung nodules Surgical History H/O hernia repair History of partial hysterectomy Social History Social History Alcohol intake: never Smoking Status: Former smoker Years Smoked: Five years Advance Directives: Yes Advance Directives on File: Yes Advance Directives Date on File: 06/13/20 service: No Current occupational status: retired Physical Exam Vital Signs: Vital Signs: Last Vital Signs Temp 97.9 F 07/23/20 11:09 Pulse 99 07/23/20 11:09 Resp 18 07/23/20 11:09 BP 163/88 H 07/23/20 11:09 Pulse Ox 93 07/23/20 11:09 Body Mass Index 26.3 Vital signs have been reviewed as appeared to be correct. Blood pressure elevated. Heart rate: Tachycardic. Respiration rate normal. Temperature normal. Oxygen saturation normal. Appearance: Alert. Oriented X3. No acute distress. Head: Normal external exam. Normocephalic. Atraumatic. No Christianson signs noted. No raccoon eyes noted Eyes: PERRLA. EOMI. Conjunctiva and sclera normal. Eyelids normal. ENT: TM's Normal. Pharynx normal. Uvula midline. Moist mucous membranes. No trismus noted. No drooling noted. No muffled voice noted. Neck: Normal inspection. Neck supple. FROM. No adenopathy. Thyroid Normal. No meningeal signs. No neck mass noted. CVS: Normal heart rate and rhythm. Heart sound normal. No murmurs noted. Pulses normal throughout. Respiratory: No respiratory distress. Painless inspiration. Breath sounds normal. No wheezes/rales/rhonchi noted. Chest nontender. No accessory muscle usage noted or decreased air movement noted. Abdomen: Soft and nontender. Bowel sounds normal in all 4 quadrants. No distention noted. No organomegaly noted. No visible injury noted. Back: No CVA tenderness. Full range of motion noted. Skin: Skin warm and dry. Normal skin color. Normal skin turgor. No rashes/lesions/lacerations noted. Extremities: No lower extremity edema. Extremities exhibit normal range of motion. Extremities nontender. Neuro: Oriented X 3. No motor deficit. No sensory deficit. Reflexes normal. Course Course Course Narrative: Assessment and plan. 69 year-old female with history of BILLIE secondary to vasculitis, presented with chest pain since 04:00 o'clock in the morning. 1. EKG is showing nonspecific ST changes but no indication for ischemia or acute MO, troponin is elevated at baseline and 2nd troponin 3 hours apart with 10 units elevated but no delta changes, the case discussed with from toll patrolman, troponin elevation probably secondary to kidney insufficiency and abnormal troponin today is not likely reflecting ACS. 2. Elevated D-dimer concern of PE patient had V/Q scan which showed low probability for PE. 3. Pain is pleuritic in nature patient was instructed to use Tylenol if needed for pain. 4. To follow up with PCP/renal doctor. 5. Patient was instructed to return to the emergency department if any worsening of her symptoms or developing any new symptoms. MDM - Chest Pain Lab Data Attestation: I reviewed the patient's lab results. Result diagrams: 07/23/20 08:00 07/23/20 08:00 Labs: Lab Results 07/23/20 07/23/20 07/23/20 Range/Units 08:00 08:00 08:00 WBC 10.9 H (4.8-10.8) X10*3/uL RBC 2.58 L (4.20-5.50) X10*6/uL Hgb 7.9 L (12.0-16.0) g/dl Hct 24.1 L (37-47) % MCV 93.4 (80-98) fL MCH 30.6 (27.0-33.0) pg MCHC 32.8 (31.0-35.0) g/dl RDW 22.9 H (11.0-16.0) % Plt Count 297 (160-400) X10*3/uL MPV 11.3 (9.4-12.3) fL Immature Gran % (Auto) 2.0 H (0.0-0.4) % Neut % (Auto) 84.1 H (45-73) % Lymph % (Auto) 5.0 L (20-40) % Traverse % (Auto) 8.6 (2-11) % Eos % (Auto) 0.0 (0-4) % Baso % (Auto) 0.3 (0-2) % Lymph # (Auto) 0.5 L (1.2-4.9) X10*3/uL Traverse # (Auto) 0.9 (0.1-1.2) X10*3/uL Eos # (Auto) 0.0 (0.0-0.4) X10*3/uL Baso # (Auto) 0.0 (0.0-0.2) X10*3/uL Abs Immat Gran (auto) 0.22 H (0.00-0.03) X10*3/uL Absolute Neuts (auto) 9.2 H (2.0-8.3) X10*3/uL Absolute Nucleated RBC 0.320 H (0.0-0.012) X10*3/uL Nucleated RBC % (auto) 2.9 H (0.0-0.2) /100WBC Smear Tech's Comments VERIFIED D-Dimer 927 NG/ML Sodium 135 (135-145) mmol/L Potassium 4.0 (3.3-5.1) mmol/L Chloride 90 L (96-108) mmol/L Carbon Dioxide 32 H (22-29) mmol/L Anion Gap 17 (12-20) BUN 88 H* (9-16) mg/dL Creatinine 4.98 H* (0.5-1.4) mg/dL Estim Creat Clear Calc 10.8 Estimated GFR 9 Random Glucose 131 H (60-115) mg/dL Calcium 8.9 (8.4-10.2) mg/dL Total Bilirubin 0.5 (0.0-1.0) mg/dL Direct Bilirubin 0.2 (0.0-0.5) mg/dL AST 18 D (5-31) U/L ALT 36 H (0-31) U/L Alkaline Phosphatase 100 (39-117) U/L Troponin I High Sens (<3.5-17.0) ng/L B-Natriuretic Peptide (<100) pg/mL Total Protein 6.2 L D (6.5-8.0) g/dL Albumin 4.1 D (3.5-5.0) g/dL Lipase 86 H (8-78) U/L 05/16/21 05/16/21 Range/Units 08:00 11:07 WBC (4.8-10.8) X10*3/uL RBC (4.20-5.50) X10*6/uL Hgb (12.0-16.0) g/dl Hct (37-47) % MCV (80-98) fL MCH (27.0-33.0) pg MCHC (31.0-35.0) g/dl RDW (11.0-16.0) % Plt Count (160-400) X10*3/uL MPV (9.4-12.3) fL Immature Gran % (Auto) (0.0-0.4) % Neut % (Auto) (45-73) % Lymph % (Auto) (20-40) % Traverse % (Auto) (2-11) % Eos % (Auto) (0-4) % Baso % (Auto) (0-2) % Lymph # (Auto) (1.2-4.9) X10*3/uL Traverse # (Auto) (0.1-1.2) X10*3/uL Eos # (Auto) (0.0-0.4) X10*3/uL Baso # (Auto) (0.0-0.2) X10*3/uL Abs Immat Gran (auto) (0.00-0.03) X10*3/uL Absolute Neuts (auto) (2.0-8.3) X10*3/uL Absolute Nucleated RBC (0.0-0.012) X10*3/uL Nucleated RBC % (auto) (0.0-0.2) /100WBC Smear Tech's Comments D-Dimer NG/ML Sodium (135-145) mmol/L Potassium (3.3-5.1) mmol/L Chloride (96-108) mmol/L Carbon Dioxide (22-29) mmol/L Anion Gap (12-20) BUN (9-16) mg/dL Creatinine (0.5-1.4) mg/dL Estim Creat Clear Calc Estimated GFR Random Glucose (60-115) mg/dL Calcium (8.4-10.2) mg/dL Total Bilirubin (0.0-1.0) mg/dL Direct Bilirubin (0.0-0.5) mg/dL AST (5-31) U/L ALT (0-31) U/L Alkaline Phosphatase (39-117) U/L Troponin I High Sens 77.7 H D 87.5 H (<3.5-17.0) ng/L B-Natriuretic Peptide 595 H (<100) pg/mL Total Protein (6.5-8.0) g/dL Albumin (3.5-5.0) g/dL Lipase (8-78) U/L Imaging Data Chest x-ray: Radiologist's impression: Persistent bilateral nodules lung and right lung without definite change. Cardiac silhouette mediastinum pulmonary vascularity are normal. Bone and soft tissues unremarkable. V/Q scan: Radiologist's impression: MPRESSION: Based on perfusion only modified PIOPED 2 criteria, PE is absent. ECG Data ECG #1: Interpretation: Sinus tachycardia at 106 beats per minutes, normal axis deviation, normal intervals, diffuse T-wave flattening and inversion in V3 to V6. Discharge Plan Discharge Prescriptions: No Action atorvastatin 10 mg tablet 1 tab PO QPM RF: 0 amlodipine 5 mg tablet 1 tab PO QPM RF: 0 prednisone 20 mg Tablet 60 mg PO DAILY Qty: 1 RF: 0 sodium bicarbonate 650 mg Tablet 1,300 mg PO TID Qty: 1 RF: 0 cyclophosphamide 25 mg capsule 125 mg PO QAM RF: 0 sevelamer carbonate 800 mg tablet 800 mg PO TID RF: 0
[2020-07-23 08:06] LABS: Basophils Percent Auto 0.3 % (0-2); Hematocrit 24.1 % (37-47); Hemoglobin 7.9 g/dl (12.0-16.0); Imm Gran Abs Auto 0.22 X10*3/uL (0.00-0.03); Lymphocytes Absolute Auto 0.5 X10*3/uL (1.2-4.9); MANUAL DIFF FLAG SCAN; Mean Corpuscular HGB Conc 32.8 g/dl (31.0-35.0); Mean Corpuscular Hemoglobin 30.6 pg (27.0-33.0); Mean Corpuscular Volume 93.4 fL (80-98); Mean Platelet Volume 11.3 fL (9.4-12.3); Monocytes Absolute Auto 0.9 X10*3/uL (0.1-1.2); Monocytes Percent Auto 8.6 % (2-11); Neutrophils Absolute Auto 9.2 X10*3/uL (2.0-8.3); Neutrophils Percent Auto 84.1 % (45-73); Platelet Count 297 X10*3/uL (160-400); Red Blood Count 2.58 X10*6/uL (4.20-5.50); Red Cell Distribution Width 22.9 % (11.0-16.0); SCAN SMEAR FLAG 1; White Blood Count 10.9 X10*3/uL (4.8-10.8)
[2020-07-23 08:09] LABS: NRBC Pct Auto 2.9 /100WBC (0.0-0.2)
[2020-07-23 08:26] LABS: D Dimer 927 NG/ML
[2020-07-23 08:29] LABS: SLIDE REVIEW VERIFIED
[2020-07-23 08:44] LABS: B Type Natriuretic Peptide 595 pg/mL (<100); Troponin-I High Sensitivity 77.7 ng/L (<3.5-17.0)
[2020-07-23 08:46] LABS: Alanine Aminotransferase 36 U/L (0-31); Albumin Level 4.1 g/dL (3.5-5.0); Alkaline Phosphatase 100 U/L (39-117); Anion Gap 17 (12-20); Aspartate Amino Transferase 18 U/L (5-31); Bilirubin Direct 0.2 mg/dL (0.0-0.5); Bilirubin Total 0.5 mg/dL (0.0-1.0); Blood Urea Nitrogen 88 mg/dL (9-16); Calcium 8.9 mg/dL (8.4-10.2); Carbon Dioxide 32 mmol/L (22-29); Chloride 90 mmol/L (96-108); Creatinine Clr Calc Pharmacy 10.8; Estimated Glomerular Filt Rate 9; Glucose Random 131 mg/dL (60-115); Sodium 135 mmol/L (135-145); Total Protein 6.2 g/dL (6.5-8.0)
[2020-07-23 08:55] LABS: Lipase 86 U/L (8-78)
[2020-07-23 09:36] VITALS: BP 161/85; PULSE 98; RESP 18; O2SAT 97
[2020-07-23 11:09] VITALS: BP 163/88; PULSE 99; RESP 18; TEMP 36.6; O2SAT 93
[2020-07-23 12:03] LABS: Troponin-I High Sensitivity 87.5 ng/L (<3.5-17.0)
[2020-07-23 12:56] LABS: Glucose Urine UA NEG (NEG); Leukocyte Esterase Urine NEG (NEG); Nitrite Urine NEG (NEG); Specific Gravity - Urine 1.015 (1.005-1.025); Urine Blood TRACE (NEG); Urine Ketones NEG (NEG); Urine Protein 2+ MG/DL (NEG-TRACE)
[2020-07-23 12:59] LABS: Appearance Urine CLEAR; Color Urine YELLOW
[2020-07-23 13:12] LABS: RBC Urine 0-2 /HPF (0); Squamous Epithelial Cell Urine TRACE /LPF; WBC Urine 0-2 /HPF (0-4)
== END 2020-07-23 13:34 | disposition home or self-care (01) ==
PROVIDERS: Emergency Provider Emergency Medicine; PCP Physician Assistant
DX: R07.9 Chest pain, unspecified (principal); I10 Essential (primary) hypertension; Z79.899 Other long term (current) drug therapy; Z87.891 Personal history of nicotine dependence
CPT/HCPCS: 36415; 71045; 78580; 80048; 80076; 81001; 81003; 83690; 83880; 84484; 85025; 85379; 93005; 99285; A9540

== ENCOUNTER → 2020-08-09 13:31 | Outpatient (BNVA) | payer MEDICARE, OTHER, SELFPAY | PROVIDERS: PCP Physician Assistant; Visit Provider Internal Medicine | DX: M31.30 Wegener's granulomatosis without renal involvement (principal); Z79.899 Other long term (current) drug therapy; Z87.891 Personal history of nicotine dependence | CPT/HCPCS: 99212 ==

== ENCOUNTER 2020-08-23 13:58 | Outpatient (REF) | payer MEDICARE, OTHER, SELFPAY ==
--- NOTE | 2020-08-23 14:36 | PFT_ITS ---
INDICATION: Khalida's. SPIROMETRY: FEV1 to FVC 81% with an FEV1 of 1.85 L, which is 75% predicted, and FVC of 2.29 L, 71% predicted. No significant response to bronchodilators noted. Maximum voluntary ventilation 90% predicted. LUNG VOLUMES: Total lung capacity 82% predicted with expiratory reserve volume of 50% predicted. DIFFUSING CAPACITY: DLCO of 57% predicted. COMPARISONS: None available. INTERPRETATION: No obstructive nor restrictive ventilatory defects identified. No significant response to bronchodilators noted. Normal maximum voluntary ventilation. Lung volumes are low normal; therefore, occult interstitial lung conditions cannot be ruled out. In addition to that, the patient does have a moderate diffusion impairment. Clinical correlation warranted. Rolf Anne MD MR/MODL / [id number]
== END 2020-08-23 13:59 | disposition home or self-care (01) ==
LOC: HO.RESP 13:58
PROVIDERS: PCP Physician Assistant; Visit Provider Internal Medicine
DX: M31.30 Wegener's granulomatosis without renal involvement (principal)
CPT/HCPCS: 94060; 94727; 94729

== ENCOUNTER 2020-09-14 16:13 | Outpatient (REF) | payer MEDICARE, OTHER, SELFPAY ==
--- NOTE | ~2020-09-14 | US_ITS ---
EXAMINATION: US VENOUS ULTRASOUND WITH DOPPLER LOWER EXTREMITY, LEFT CLINICAL INFORMATION: Swelling COMPARISON: None TECHNIQUE: Ultrasound of the deep veins is performed from the hip to the calf with compression sonography and color and pulse Doppler assessment. Spectral analysis with color-flow imaging is performed. FINDINGS: There is normal venous compression and respiratory variation and augmented flow. The visualized common femoral vein, superficial femoral vein, profunda femoral vein, popliteal vein, and the trifurcation region shows no evidence of deep venous thrombosis. There is no significant popliteal fossa cyst. US/US venous duplex LE LT IMPRESSION: No DVT demonstrated in the left lower extremity.
== END 2020-09-14 16:14 | disposition home or self-care (01) ==
LOC: HO.US 16:13
PROVIDERS: Visit Provider Internal Medicine Nephrology
DX: R60.0 Localized edema (principal); N17.9 Acute kidney failure, unspecified
CPT/HCPCS: 93971

== ENCOUNTER → 2020-10-09 12:56 | Outpatient (BNVA) | payer MEDICARE, OTHER, SELFPAY | PROVIDERS: PCP Physician Assistant; Visit Provider Internal Medicine | DX: J84.89 Other specified interstitial pulmonary diseases (principal); M31.30 Wegener's granulomatosis without renal involvement | CPT/HCPCS: 99212 ==

== ENCOUNTER 2021-01-25 10:53 | Outpatient (REF) | payer MEDICARE, OTHER, SELFPAY ==
--- NOTE | ~2021-01-25 | MM_ITS ---
EXAMINATION: MM SCREENING DIGITAL BREAST TOMOSYNTHESIS, BILATERAL CLINICAL INFORMATION: Screening. Asymptomatic. The lifetime risk of breast cancer based on the Tyrer-Cuzick Model is 5%. COMPARISON: Mammography: 01/24/2020, 12/02/2018, 12/01/2017 TECHNIQUE: Digital breast tomosynthesis is performed in both the craniocaudal and mediolateral oblique views along with computer-aided detection (CAD). Synthesized 2D images are generated from the tomosynthesis. FINDINGS: There are scattered areas of fibroglandular density (ACR BI-RADS breast composition Category b). There are no significant masses, abnormal calcifications, or other abnormalities. Parenchymal pattern is similar to prior study. No developing density. No significant changes. MM/MM tomosynthesis screening BI IMPRESSION: No mammographic evidence of malignancy. ASSESSMENT: BI-RADS 1: Negative RECOMMENDATION: Routine annual mammography screening. This patient's information was entered into a reminder system with a target due date for their next mammogram.
== END 2021-01-25 10:54 | disposition home or self-care (01) ==
LOC: HO.MAMMO 10:53
PROVIDERS: PCP Physician Assistant; Visit Provider Physician Assistant
DX: Z12.31 Encounter for screening mammogram for malignant neoplasm of breast (principal)
CPT/HCPCS: 77063; 77067

== ENCOUNTER → 2021-02-14 13:19 | Outpatient (BNVA) | payer MEDICARE, OTHER, SELFPAY | PROVIDERS: PCP Physician Assistant; Visit Provider Internal Medicine | DX: M31.30 Wegener's granulomatosis without renal involvement (principal) | CPT/HCPCS: 99212 ==

== ENCOUNTER 2021-09-13 13:35 | Outpatient (REF) | payer MEDICARE, OTHER, SELFPAY ==
--- NOTE | ~2021-09-13 | XR_ITS ---
EXAMINATION: XR CHEST CLINICAL INFORMATION: Khalida's granulomatosis COMPARISON: Previous chest x-ray July [address] June 2020 TECHNIQUE: 2 views of the chest were obtained. FINDINGS: The cardiac and mediastinal contours are normal. The lungs are clear. The previously identified bilateral pulmonary nodules and masses are no longer seen. There is no pleural effusion or pneumothorax. There are degenerative changes of the spine. XR/XR chest 2V IMPRESSION: No evidence for acute disease in the chest. Previously identified bilateral pulmonary nodules and masses are no longer seen.
== END 2021-09-13 13:36 | disposition home or self-care (01) ==
LOC: HO.XRAY 13:35
PROVIDERS: PCP Family Medicine; Visit Provider Internal Medicine
DX: M31.30 Wegener's granulomatosis without renal involvement (principal)
CPT/HCPCS: 71046; 99212

== ENCOUNTER 2021-12-26 11:17 | Inpatient (IN) | payer MEDICARE, OTHER, SELFPAY ==
[2021-12-26 14:38] VITALS: BP 159/71; PULSE 86; RESP 20; TEMP 36.7; O2SAT 96; BMI 19.5
[2021-12-26 15:02] LABS: MANUAL DIFF FLAG NO
[2021-12-26 15:03] LABS: Basophils Percent Auto 0.3 % (0-2); Eosinophils Percent Auto 0.3 % (0-4); Hemoglobin 12.1 g/dl (12.0-16.0); Imm Gran Abs Auto 0.05 X10*3/uL (0.00-0.03); Imm Gran Pct Auto 0.5 % (0.0-0.4); Lymphocytes Absolute Auto 0.7 X10*3/uL (1.2-4.9); Lymphocytes Percent Auto 7.5 % (20-40); Mean Corpuscular HGB Conc 32.7 g/dl (31.0-35.0); Mean Corpuscular Volume 88.7 fL (80.0-98.0); Mean Platelet Volume 9.9 fL (9.4-12.3); Monocytes Absolute Auto 0.8 X10*3/uL (0.1-1.2); Monocytes Percent Auto 8.8 % (2-11); Neutrophils Absolute Auto 7.5 x10*3/uL (2.0-8.3); Neutrophils Percent Auto 82.6 % (45-73); Platelet Count 376 X10*3/uL (160-400); Red Blood Count 4.17 X10*6/uL (4.20-5.50); Red Cell Distribution Width 12.2 % (11.0-16.0); White Blood Count 9.1 X10*3/uL (4.8-10.8)
[2021-12-26 15:25] LABS: Alanine Aminotransferase 24 U/L (0-31); Albumin Level 4.1 g/dL (3.5-5.0); Alkaline Phosphatase 77 U/L (39-117); Anion Gap 20 (12-20); Aspartate Amino Transferase 20 U/L (5-31); Bilirubin Total 0.4 mg/dL (0.0-1.0); Blood Urea Nitrogen 94 mg/dL (9-16); Calcium 13.7 mg/dL (8.4-10.2); Carbon Dioxide 29 mmol/L (22-29); Chloride 95 mmol/L (96-108); Creatinine Clr Calc Pharmacy 7.9; Estimated Glomerular Filt Rate 8; Glucose Random 107 mg/dL (60-115); Potassium 4.6 mmol/L (3.3-5.1); Sodium 139 mmol/L (135-145); Total Protein 6.7 g/dL (6.5-8.0)
[2021-12-26 15:29] VITALS: BP 170/74; PULSE 86; RESP 16; TEMP 37.1; O2SAT 99
--- NOTE | 2021-12-26 16:08 | ED.GENADULT ---
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 Leiva for worsening kidney function and hypercalcemia. Patient states that she has been having some nausea with occasional vomiting as well as headaches but otherwise denies shortness of breath, chest pain/palpitations and states that she has continued to urinate frequently. She states she has had a ?cold? proximally 2 weeks ago but otherwise denies any changes in medications other than discontinuation of clonidine. Related Data Home Medications Medication Instructions Recorded Confirmed sevelamer carbonate 800 mg tablet 800 mg PO TID 07/05/20 amlodipine 5 mg tablet 10 mg PO QPM 08/09/20 cholecalciferol (vitamin D3) 25 25 mcg PO DAILY 08/09/20 mcg (1,000 unit) capsule torsemide 20 mg tablet 60 mg PO BID 08/09/20 potassium chloride 20 mEq 20 meq PO BID 02/14/21 tablet,extended release prednisone 20 mg tablet 10 mg PO DAILY 02/14/21 carvedilol 3.125 mg tablet 6.25 mg PO BID 09/13/21 Allergies Allergy/AdvReac Type Severity Reaction Status Date / Time No Known Allergies Allergy Verified 12/26/21 14:37 Review of Systems Review of Systems: Pertinent positives and negatives as stated in HPI 10 point review of systems is otherwise negative. 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 Hyperlipidemia Hypertension Lung nodules Surgical History H/O hernia repair History of partial hysterectomy Social History Social History Alcohol intake: never Years Smoked: Five years Advance Directives: No Advance Directives Information Provided: No Advance Directives Date on File: 06/13/20 service: No Current occupational status: retired Physical Exam ED Vital Signs: Vital Signs - 24 hr 12/26/21 14:38 12/26/21 15:29 Temperature 98.0 F 98.8 F Pulse Rate 86 86 Respiratory Rate 20 16 Blood Pressure 159/71 H 170/74 H Pulse Oximetry 96 99 Oxygen Delivery Method Room Air Room Air BMI result Body Mass Index 19.5 VITAL SIGNS: Reviewed. GENERAL: Well developed, well nourished, in no acute distress. HEAD: Normocephalic/atraumatic EYES: PERRLA, EOMI EARS: Ext canals without abnormality OROPHARYNX: no oral lesions noted, posterior pharynx clear LUNGS: Normal breath sounds. No adventitious sounds or accessory muscle use. SpO2<99> CARDIOVASCULAR: Regular rate and rhythm without noted murmurs, no JVD or lower extremity edema. ABDOMEN: Soft, non-tender, non-distended with bowel sounds. MUSCULOSKELETAL: No tenderness, deformities, or effusions noted on gross inspection. EXTREMITIES: No cyanosis, clubbing or edema; LEFT UPPER EXTREMITY: AV fistula with intact thrill and bruit. SKIN: Inspection of the skin reveals no rashes NEUROLOGIC: Alert and oriented x 4. Strength and sensation to light touch were grossly intact x 4. Course Course Course Narrative: 71-year-old female with history and clinical presentation consistent with worsening CKD of unclear etiology, symptomatic for hypercalcemia which is felt to be consistent with the renal osteodystrophy as opposed to occult malignancy. Patient will receive 1 L of fluids, urine electrolytes, ionized calcium and will contact Nephrology. Review of all investigations consistent with CKD and hypercalcemia that may be secondary to patient's exaggerate issues verses related to worsening renal function. Recommendation by nephrology is for admission and trending IN eyes calcium levels as well as phosphorus levels and repeat lab work in the morning. I did discuss this case with the inpatient hospitalist who accepts admission. Reevaluation(s) Reevaluation #1: I discussed the case with Nephrology who agrees with IV hydration as well as recommending q.6H ionized calcium level, phosphorus and repeat renal function in the morning. Time: 17:35 Medical Decision Making Lab Data Result diagrams: 12/26/21 14:58 12/26/21 14:58 Labs: Lab Results 12/26/21 12/26/21 12/26/21 Range/Units 14:58 14:58 14:58 WBC 9.1 (4.8-10.8) X10*3/uL RBC 4.17 L (4.20-5.50) X10*6/uL Hgb 12.1 (12.0-16.0) g/dl Hct 37.0 (37.0-47.0) % MCV 88.7 (80.0-98.0) fL MCH 29.0 (27.0-33.0) pg MCHC 32.7 (31.0-35.0) g/dl RDW 12.2 (11.0-16.0) % Plt Count 376 (160-400) X10*3/uL MPV 9.9 (9.4-12.3) fL Immature Gran % (Auto) 0.5 H (0.0-0.4) % Neut % (Auto) 82.6 H (45-73) % Lymph % (Auto) 7.5 L (20-40) % Coleman % (Auto) 8.8 (2-11) % Eos % (Auto) 0.3 (0-4) % Baso % (Auto) 0.3 (0-2) % Lymph # (Auto) 0.7 L (1.2-4.9) X10*3/uL Coleman # (Auto) 0.8 (0.1-1.2) X10*3/uL Eos # (Auto) 0.0 (0.0-0.4) X10*3/uL Baso # (Auto) 0.0 (0.0-0.2) X10*3/uL Abs Immat Gran (auto) 0.05 H (0.00-0.03) X10*3/uL Absolute Neuts (auto) 7.5 (2.0-8.3) x10*3/uL Absolute Nucleated RBC 0.000 (0.0-0.012) X10*3/uL Nucleated RBC % (auto) 0.0 (0.0-0.2) /100WBC ESR 70 H (0-20) MM/HR Sodium 139 (135-145) mmol/L Potassium 4.6 (3.3-5.1) mmol/L Chloride 95 L (96-108) mmol/L Carbon Dioxide 29 (22-29) mmol/L Anion Gap 20 (12-20) BUN 94 H (9-16) mg/dL Creatinine 5.54 H* (0.5-1.4) mg/dL Estim Creat Clear Calc 7.9 Estimated GFR 8 Random Glucose 107 (60-115) mg/dL Calcium 13.7 H* D (8.4-10.2) mg/dL Total Bilirubin 0.4 (0.0-1.0) mg/dL AST 20 (5-31) U/L ALT 24 (0-31) U/L Alkaline Phosphatase 77 D (39-117) U/L C-Reactive Protein 0.71 H (< or = 0.50) mg/dL Total Protein 6.7 (6.5-8.0) g/dL Albumin 4.1 (3.5-5.0) g/dL Urine Color Urine Appearance Urine pH (5.0-9.0) Ur Specific Aston (1.005-1.025) Urine Protein (Neg-Trace) mg/dL Urine Glucose (UA) (Negative) mg/dL Urine Ketones (Negative) mg/dL Urine Blood (Negative) Urine Nitrite (Negative) Ur Leukocyte Esterase (Negative) Urine RBC (0-2) /HPF Urine WBC (0-5) /HPF Ur Squamous Epith Cells (0-2) /HPF Urine Bacteria (None Seen) Hyaline Casts (0-2) /LPF 12/26/21 Range/Units 17:31 WBC (4.8-10.8) X10*3/uL RBC (4.20-5.50) X10*6/uL Hgb (12.0-16.0) g/dl Hct (37.0-47.0) % MCV (80.0-98.0) fL MCH (27.0-33.0) pg MCHC (31.0-35.0) g/dl RDW (11.0-16.0) % Plt Count (160-400) X10*3/uL MPV (9.4-12.3) fL Immature Gran % (Auto) (0.0-0.4) % Neut % (Auto) (45-73) % Lymph % (Auto) (20-40) % Coleman % (Auto) (2-11) % Eos % (Auto) (0-4) % Baso % (Auto) (0-2) % Lymph # (Auto) (1.2-4.9) X10*3/uL Coleman # (Auto) (0.1-1.2) X10*3/uL Eos # (Auto) (0.0-0.4) X10*3/uL Baso # (Auto) (0.0-0.2) X10*3/uL Abs Immat Gran (auto) (0.00-0.03) X10*3/uL Absolute Neuts (auto) (2.0-8.3) x10*3/uL Absolute Nucleated RBC (0.0-0.012) X10*3/uL Nucleated RBC % (auto) (0.0-0.2) /100WBC ESR (0-20) MM/HR Sodium (135-145) mmol/L Potassium (3.3-5.1) mmol/L Chloride (96-108) mmol/L Carbon Dioxide (22-29) mmol/L Anion Gap (12-20) BUN (9-16) mg/dL Creatinine (0.5-1.4) mg/dL Estim Creat Clear Calc Estimated GFR Random Glucose (60-115) mg/dL Calcium (8.4-10.2) mg/dL Total Bilirubin (0.0-1.0) mg/dL AST (5-31) U/L ALT (0-31) U/L Alkaline Phosphatase (39-117) U/L C-Reactive Protein (< or = 0.50) mg/dL Total Protein (6.5-8.0) g/dL Albumin (3.5-5.0) g/dL Urine Color Yellow Urine Appearance Clear Urine pH 5.5 (5.0-9.0) Ur Specific Aston 1.010 (1.005-1.025) Urine Protein 100 (2+) H (Neg-Trace) mg/dL Urine Glucose (UA) Negative (Negative) mg/dL Urine Ketones Negative (Negative) mg/dL Urine Blood Negative (Negative) Urine Nitrite Negative (Negative) Ur Leukocyte Esterase Trace H (Negative) Urine RBC 0-2 (0-2) /HPF Urine WBC 0-5 (0-5) /HPF Ur Squamous Epith Cells 0-2 (0-2) /HPF Urine Bacteria None Seen (None Seen) Hyaline Casts 3-5 (0-2) /LPF Critical Care Time Critical Care Time Critical Care Time: Yes Total Critical Care Time: 30 Attestation: I personally attest to this time spent taking care of the patient. Discharge Plan Discharge Clinical Impression: Acute on chronic renal failure, Hypercalcemia, Vasculitis, ANCA positive Patient Disposition: Admitted As Inpatient Prescriptions: No Action amlodipine 5 mg tablet 10 mg PO QPM sevelamer carbonate 800 mg tablet 800 mg PO TID torsemide 20 mg tablet 60 mg PO BID cholecalciferol (vitamin D3) 25 mcg (1,000 unit) capsule 25 mcg PO DAILY prednisone 20 mg tablet 10 mg PO DAILY Label Comments: 10 mg three times a week and other days are 5mg potassium chloride 20 mEq tablet extended release 20 meq PO BID carvedilol 3.125 mg tablet 6.25 mg PO BID
[2021-12-26 16:23] LABS: C Reactive Protein 0.71 mg/dL (< or = 0.50)
[2021-12-26 16:57] LABS: Erythrocyte Sedimentation Rate 70 MM/HR (0-20)
[2021-12-26] MEDS: 0.9 % Sodium Chloride 1,000 ML 999 ML IV (17:07)
[2021-12-26 17:39] LABS: Appearance Urine Clear; Color Urine Yellow; Glucose Urine UA Negative (Negative); Leukocyte Esterase Urine Trace (Negative); Nitrite Urine Negative (Negative); PH 5.5 (5.0-9.0); UMIC TRIGGER UACC YES; Urine Blood Negative (Negative); Urine Ketones Negative (Negative); Urine Protein 100 (2+) mg/dL (Neg-Trace)
--- NOTE | 2021-12-26 17:39 | ECG_ITS ---
Test Reason : general medical Blood Pressure : / mmHG Vent. Rate : 078 BPM Atrial Rate : 078 BPM P-R Int : 158 ms QRS Dur : 088 ms QT Int : 368 ms P-R-T Axes : 028 -13 015 degrees QTc Int : 419 ms Normal sinus rhythm Minimal voltage criteria for LVH, may be normal variant ( R in aVL ) Borderline ECG When compared with ECG of 23-JUL-2020 07:16, Nonspecific T wave abnormality no longer evident in Lateral leads QT has shortened Referred By: Isidra Singh Electronically Signed By:PINO ABEL MD
[2021-12-26 17:41] LABS: Bacteria Urine None Seen (None Seen); RBC Urine 0-2 /HPF (0-2); Squamous Epithelial Cell Urine 0-2 /HPF (0-2); WBC Urine 0-5 /HPF (0-5)
[2021-12-26 17:49] LABS: Phosphorus 5.8 mg/dL (2.7-4.5)
[2021-12-26 17:49] LABS: Potassium Urine Random 46.3 mmol/L; Sodium Urine Random < 20.0 mmol/L
[2021-12-26 17:58] VITALS: BP 157/67; PULSE 72; RESP 18; TEMP 36.6; O2SAT 97
[2021-12-26 18:01] LABS: COVID-19 Test Negative (Negative); IDNOW Serial# 9DB6401D
--- NOTE | 2021-12-26 18:20 | PM.IMHP ---
History of Present Illness Date of Service: 12/26/21 Chief Complaint: Weakness, abnormal blood work A 71 years old lady with PMH of CKD stage 5, granulomatosis with polyangiitis, vasculitis among others who presents to the hospital with increased weakness and abnormal blood work. The patient went to see her primary care yesterday for evaluation of increased weakness. She is complaining of muscle weakness and having no energy with increase fogging in her mind and associated constipation. Denies any fever, chills, chest pain, shortness of breath, nausea, vomiting or urinary symptoms. Blood work was consistent with moderate hypercalcemia of 13.5 with associated worsening kidney function stage 5. Admitted for further evaluation and treatment. 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 Hyperlipidemia Hypertension Lung nodules Surgical History H/O hernia repair History of partial hysterectomy Social History Alcohol intake: never Years Smoked: Five years Advance Directives: No Advance Directives Information Provided: No Advance Directives Date on File: 06/13/20 service: No Current occupational status: retired Meds Allergies Allergy/AdvReac Type Severity Reaction Status Date / Time No Known Allergies Allergy Verified 12/26/21 14:37 Active Medications: Current Medications Pharmacy Consult (Consult Rx Perform Med Rec) 1 each MISCELLANE ONCE PRN PRN Reason: Consult order Home Medications Medication Instructions Recorded Confirmed Last Taken Type sevelamer carbonate 800 mg tablet 800 mg PO BIDWM 07/05/20 12/26/21 12/26/21 History cholecalciferol (vitamin D3) 25 25 mcg PO DAILY@1200 08/09/20 12/26/21 12/26/21 History mcg (1,000 unit) capsule torsemide 20 mg tablet 20 mg PO DAILY 08/09/20 12/26/21 12/26/21 History potassium chloride 20 mEq 20 meq PO DAILY 02/14/21 12/26/21 12/26/21 History tablet,extended release amlodipine 10 mg tablet 1 tab PO DAILY@1200 12/26/21 12/26/21 12/26/21 History carvedilol 6.25 mg tablet 1 tab PO BID@0800,1200 12/26/21 12/26/21 12/26/21 History ferrous sulfate 325 mg (65 mg 325 mg PO DAILY@1200 12/26/21 12/26/21 12/26/21 History iron) tablet ondansetron 8 mg disintegrating 8 mg PO BID PRN Nausea And Vomiting 12/26/21 12/26/21 12/26/21 History tablet prednisone 10 mg tablet 10 mg PO DAILY 12/26/21 12/26/21 12/26/21 History Physical Exam Vital Signs and Narrative: Vital Signs: Last Vital Signs Temp 97.9 F 12/26/21 17:58 Pulse 72 12/26/21 17:58 Resp 18 12/26/21 17:58 BP 157/67 H 12/26/21 17:58 Pulse Ox 97 12/26/21 17:58 O2 Del Method 12/26/21 17:58 BMI result Body Mass Index 19.5 Const: Other: Constitutional : Alert, interactive, frail, not in distress Neck : Normal inspection, Supple Cardiovascular : RRR, no JVP, no lower extremity edema Respiratory : fair bilateral air entry, no crackles, wheezes or rhonchi Gastrointestinal: soft, lax, Normal bowel sounds, Non tender Skin : Warm, Dry Neurological : Alert & oriented x3, No focal deficit Results Labs CBC and Chem 7: 12/27/21 06:13 12/27/21 06:13 Labs: Laboratory Results - last 24 hr 12/26/21 12/26/21 12/26/21 14:58 14:58 14:58 MCV 88.7 MCH 29.0 MCHC 32.7 RDW 12.2 Plt Count 376 MPV 9.9 Immature Gran % (Auto) 0.5 H Neut % (Auto) 82.6 H Lymph % (Auto) 7.5 L [place] % (Auto) 8.8 Eos % (Auto) 0.3 Baso % (Auto) 0.3 Lymph # (Auto) 0.7 L [place] # (Auto) 0.8 Eos # (Auto) 0.0 Baso # (Auto) 0.0 Abs Immat Gran (auto) 0.05 H Absolute Neuts (auto) 7.5 Absolute Nucleated RBC 0.000 Nucleated RBC % (auto) 0.0 ESR 70 H Anion Gap 20 Estim Creat Clear Calc 7.9 Estimated GFR 8 Random Glucose 107 Calcium 13.7 H* D Phosphorus 5.8 H Total Bilirubin 0.4 AST 20 ALT 24 Alkaline Phosphatase 77 D C-Reactive Protein 0.71 H Total Protein 6.7 Albumin 4.1 Urine Color Urine Appearance Urine pH Ur Specific [place] Urine Protein Urine Glucose (UA) Urine Ketones Urine Blood Urine Nitrite Ur Leukocyte Esterase Urine RBC Urine WBC Ur Squamous Epith Cells Urine Bacteria Hyaline Casts Ur Random Sodium Ur Random Potassium Ur Random Chloride COVID-19 (MAX) COVID-19 [employer] 12/26/21 12/26/21 12/26/21 17:31 17:31 17:31 MCV MCH MCHC RDW Plt Count MPV Immature Gran % (Auto) Neut % (Auto) Lymph % (Auto) [place] % (Auto) Eos % (Auto) Baso % (Auto) Lymph # (Auto) [place] # (Auto) Eos # (Auto) Baso # (Auto) Abs Immat Gran (auto) Absolute Neuts (auto) Absolute Nucleated RBC Nucleated RBC % (auto) ESR Anion Gap Estim Creat Clear Calc Estimated GFR Random Glucose Calcium Phosphorus Total Bilirubin AST ALT Alkaline Phosphatase C-Reactive Protein Total Protein Albumin Urine Color Yellow Urine Appearance Clear Urine pH 5.5 Ur Specific [place] 1.010 Urine Protein 100 (2+) H Urine Glucose (UA) Negative Urine Ketones Negative Urine Blood Negative Urine Nitrite Negative Ur Leukocyte Esterase Trace H Urine RBC 0-2 Urine WBC 0-5 Ur Squamous Epith Cells 0-2 Urine Bacteria None Seen Hyaline Casts 3-5 Ur Random Sodium < 20.0 Ur Random Potassium 46.3 Ur Random Chloride 22.0 COVID-19 (MAX) Negative COVID-19 [employer] See Note Assessment and Plan (1) Acute on chronic renal failure: Status: Acute (2) Hypercalcemia: Status: Acute Plan A 71 years old lady with PMH of CKD stage 5, granulomatosis with polyangiitis, vasculitis among others who presents to the hospital with increased weakness and abnormal blood work. Acute on chronic CKD 5 Creatinine worse to 5.5 from baseline below 5. Likely related to dehydration, hypercalcemia and decreased oral intake Elevated phosphorus to 5.8 Start sevelamer t.i.d. Nephrology consult Gentle hydration Acute moderate hypercalcemia Likely secondary to vitamin-D ingestion Check PTH, vitamin-D Ionized calcium q.6 Gentle hydration Nephrology to follow, as to hold on Lasix or Calcitonin Follow BMP Hypertension Continue amlodipine and carvedilol ANCA vasculitis Continue prednisone DVT PPX Heparin The patient will likely need to overnight hospital stay for evaluation of hypercalcemia and acute kidney injury pending nephrology consult and improvement kidney function to prevent possible need for dialysis. Quality Stroke Does the patient have a stroke diagnosis?: No VTE Prior VTE?: No VTE Risk Level:: Medical - moderate - high VTE Device Contraindication: Treatment Not Indicated VTE Drug Contraindication: N/A - Med Ordered
--- NOTE | 2021-12-26 18:36 | PC.NURSE ---
pt a&ox3, vss, 22G IV placed right hand, NS running, pt pending admission orders.
[2021-12-26 18:47] LABS: Vitamin D 25-OH Total 73.1 ng/mL (>30)
--- NOTE | 2021-12-26 19:32 | PHA.MEDREC ---
Pharmacy Consult ? Medication Reconciliation Pharmacy has completed the medication reconciliation. Spoke with patient in the ED who had a list of medications. Patient took all AM medications but did not take afternoon meds. Pt reports taking only 20 mg of torsemide daily, sevelamar bid, kcl 20 meq daily even though filled differently at her pharmacy
[2021-12-26] MEDS: 0.9 % Sodium Chloride 1,000 ML 100 ML IVCONT (21:14)
[2021-12-26] MEDS: Heparin Sodium,Porcine 5,000 UNIT/ML VIAL 5000 UNIT SUBCUT (21:15)
--- NOTE | 2021-12-26 23:48 | PC.NURSE ---
RN-RN report called into overflow - pt going to bed 7.
[2021-12-26 23:49] VITALS: BP 149/61; PULSE 78; RESP 18; TEMP 36.7; O2SAT 93
[2021-12-27 01:32] VITALS: BP 145/54; PULSE 80; RESP 16; TEMP 36.8; O2SAT 95
[2021-12-27] MEDS: 0.9 % Sodium Chloride 1,000 ML 100 ML IVCONT ×2 (04:06→13:41)
[2021-12-27 06:29] LABS: Hematocrit 33.1 % (37.0-47.0); Hemoglobin 10.5 g/dl (12.0-16.0); Mean Corpuscular HGB Conc 31.7 g/dl (31.0-35.0); Mean Corpuscular Volume 91.4 fL (80.0-98.0); Mean Platelet Volume 10.3 fL (9.4-12.3); Platelet Count 325 X10*3/uL (160-400); Red Blood Count 3.62 X10*6/uL (4.20-5.50); Red Cell Distribution Width 12.2 % (11.0-16.0); White Blood Count 8.8 X10*3/uL (4.8-10.8)
[2021-12-27 06:40] VITALS: BP 155/65; PULSE 94; RESP 15; TEMP 36.2; O2SAT 96
[2021-12-27 06:42] LABS: Anion Gap 16 (12-20); Blood Urea Nitrogen 86 mg/dL (9-16); Calcium 11.9 mg/dL (8.4-10.2); Carbon Dioxide 28 mmol/L (22-29); Chloride 101 mmol/L (96-108); Creatinine Clr Calc Pharmacy 8.5; Estimated Glomerular Filt Rate 8; Glucose Random 94 mg/dL (60-115); Phosphorus 4.6 mg/dL (2.7-4.5); Potassium 3.8 mmol/L (3.3-5.1); Sodium 141 mmol/L (135-145)
--- NOTE | 2021-12-27 07:19 | PC.NURSE ---
pt sitting up in bed at this time- eating breakfast- no distress noted. pt denies any complaints and is aware of plan of care.
[2021-12-27 07:55] VITALS: BP 155/65; PULSE 85; O2SAT 96
[2021-12-27] MEDS: Heparin Sodium,Porcine 5,000 UNIT/ML VIAL 5000 UNIT SUBCUT ×2 (08:10→21:11)
[2021-12-27 08:56] VITALS: BP 141/53; PULSE 81; RESP 12; TEMP 36.4; O2SAT 92
[2021-12-27] MEDS: Potassium Chloride ER 20 MEQ TAB.ER.PRT PO (10:00)
[2021-12-27] MEDS: carvediloL 6.25 MG TABLET PO ×2 (10:00→11:43)
[2021-12-27] MEDS: predniSONE 20 MG TABLET 10 MG PO (10:00)
[2021-12-27] MEDS: Sevelamer Carbonate Tablet 800 MG TABLET PO ×2 (10:00→16:48)
--- NOTE | 2021-12-27 11:31 | P.PNIM_ITS ---
Subjective Subjective Date of Service: 12/27/21 Interval History: Seen and evaluated this morning Feels much better, more energy and less fogginess in her head No reported other overnight events Review of Systems No fever, chills but has generalized weakness No chest pain, palpitation No shortness of breath or coughing No abdominal pain, nausea or vomiting No urinary symptoms No any rash or wounds Physical Exam Vital Signs: Vital Signs: Last Vital Signs Temp 97.5 F 12/27/21 08:56 Pulse 81 12/27/21 08:56 Resp 12 12/27/21 08:56 BP 141/53 H 12/27/21 08:56 Pulse Ox 92 12/27/21 08:56 O2 Del Method 12/27/21 08:56 BMI result Body Mass Index 19.5 Const: Other: Constitutional : Alert, interactive, frail, not in distress Neck : Normal inspection, Supple Cardiovascular : RRR, no JVP, no lower extremity edema Respiratory : fair bilateral air entry, no crackles, wheezes or rhonchi Gastrointestinal: soft, lax, Normal bowel sounds, Non tender Skin : Warm, Dry Neurological : Alert & oriented x3, No focal deficit Objective Data Active Medications Acetaminophen (Acetaminophen 325 Mg Tablet) 650 mg PO Q6H PRN PRN Reason: Pain, Mild (Pain Scale 1-3) Amlodipine Besylate (Amlodipine Besylate 10 Mg Tablet) 10 mg PO DAILY@1200 [facility]ED; Protocol Carvedilol (Carvedilol 6.25 Mg Tablet) 6.25 mg PO BID@0800,1200 [facility]ED; Protocol Last Admin: 12/27/21 10:00 Dose: 6.25 mg Documented By: WERO Heparin Sodium (Porcine) (Heparin Sodium,Porcine 5,000 Unit/Ml Vial) 5,000 unit SUBCUT Q12H [facility] Last Admin: 12/27/21 08:10 Dose: 5,000 unit Documented By: WERO Sodium Chloride (Ns) 1,000 mls @ 100 mls/hr IVCONT .Q10H [facility] Last Admin: 12/27/21 04:06 Dose: 100 mls/hr Documented By: NAWAF Ondansetron HCl (Ondansetron Hcl 4 Mg/2 Ml Vial) 4 mg IVPUSH Q8H PRN PRN Reason: Nausea and Vomiting Pharmacy Consult (Consult Rx Perform Med Rec) 1 each MISCELLANE ONCE PRN PRN Reason: Consult order Potassium Chloride (Potassium Chloride Er 20 Meq Tab.Er.Prt) 20 meq PO DAILY [facility] Last Admin: 12/27/21 10:00 Dose: 20 meq Documented By: WERO Prednisone (Prednisone 20 Mg Tablet) 10 mg PO DAILY [facility] Last Admin: 12/27/21 10:00 Dose: 10 mg Documented By: WERO Sevelamer Carbonate (Sevelamer Carbonate Tablet 800 Mg Tablet) 800 mg PO BIDWM [facility] Last Admin: 12/27/21 10:00 Dose: 800 mg Documented By: WERO Sodium Chloride (0.9 % Sodium Chloride Flush 3 Ml Syringe) 3 ml IVFLUSH QSHIFT [facility] Last Admin: 12/27/21 08:10 Dose: Not Given Documented By: WERO Non-Admin Reason: IV Running Torsemide (Torsemide 20 Mg Tablet) 20 mg PO DAILY [facility]; Protocol Labs CBC & Chem 7: 12/27/21 06:13 12/27/21 06:13 Labs: Laboratory Results - last 24 hr 12/26/21 12/26/21 12/26/21 14:58 14:58 14:58 MCV 88.7 MCH 29.0 MCHC 32.7 RDW 12.2 Plt Count 376 MPV 9.9 Immature Gran % (Auto) 0.5 H Neut % (Auto) 82.6 H Lymph % (Auto) 7.5 L [place] % (Auto) 8.8 Eos % (Auto) 0.3 Baso % (Auto) 0.3 Lymph # (Auto) 0.7 L [place] # (Auto) 0.8 Eos # (Auto) 0.0 Baso # (Auto) 0.0 Abs Immat Gran (auto) 0.05 H Absolute Neuts (auto) 7.5 Absolute Nucleated RBC 0.000 Nucleated RBC % (auto) 0.0 ESR 70 H Anion Gap 20 Estim Creat Clear Calc 7.9 Estimated GFR 8 Random Glucose 107 Calcium 13.7 H* D Phosphorus 5.8 H Total Bilirubin 0.4 AST 20 ALT 24 Alkaline Phosphatase 77 D C-Reactive Protein 0.71 H Total Protein 6.7 Albumin 4.1 25-OH Vitamin D Total 73.1 Urine Color Urine Appearance Urine pH Ur Specific [place] Urine Protein Urine Glucose (UA) Urine Ketones Urine Blood Urine Nitrite Ur Leukocyte Esterase Urine RBC Urine WBC Ur Squamous Epith Cells Urine Bacteria Hyaline Casts Ur Random Sodium Ur Random Potassium Ur Random Chloride COVID-19 (MAX) COVID-19 Clin Com 12/26/21 12/26/21 12/26/21 17:31 17:31 17:31 MCV MCH MCHC RDW Plt Count MPV Immature Gran % (Auto) Neut % (Auto) Lymph % (Auto) [place] % (Auto) Eos % (Auto) Baso % (Auto) Lymph # (Auto) [place] # (Auto) Eos # (Auto) Baso # (Auto) Abs Immat Gran (auto) Absolute Neuts (auto) Absolute Nucleated RBC Nucleated RBC % (auto) ESR Anion Gap Estim Creat Clear Calc Estimated GFR Random Glucose Calcium Phosphorus Total Bilirubin AST ALT Alkaline Phosphatase C-Reactive Protein Total Protein Albumin 25-OH Vitamin D Total Urine Color Yellow Urine Appearance Clear Urine pH 5.5 Ur Specific [place] 1.010 Urine Protein 100 (2+) H Urine Glucose (UA) Negative Urine Ketones Negative Urine Blood Negative Urine Nitrite Negative Ur Leukocyte Esterase Trace H Urine RBC 0-2 Urine WBC 0-5 Ur Squamous Epith Cells 0-2 Urine Bacteria None Seen Hyaline Casts 3-5 Ur Random Sodium < 20.0 Ur Random Potassium 46.3 Ur Random Chloride 22.0 COVID-19 (MXA) Negative COVID-19 Clin Com See Note 12/27/21 12/27/21 06:13 06:13 MCV 91.4 MCH 29.0 MCHC 31.7 RDW 12.2 Plt Count 325 MPV 10.3 Immature Gran % (Auto) Neut % (Auto) Lymph % (Auto) [place] % (Auto) Eos % (Auto) Baso % (Auto) Lymph # (Auto) [place] # (Auto) Eos # (Auto) Baso # (Auto) Abs Immat Gran (auto) Absolute Neuts (auto) Absolute Nucleated RBC 0.000 Nucleated RBC % (auto) 0.0 ESR Anion Gap 16 Estim Creat Clear Calc 8.5 Estimated GFR 8 Random Glucose 94 Calcium 11.9 H D Phosphorus 4.6 H Total Bilirubin AST ALT Alkaline Phosphatase C-Reactive Protein Total Protein Albumin 25-OH Vitamin D Total Urine Color Urine Appearance Urine pH Ur Specific [place] Urine Protein Urine Glucose (UA) Urine Ketones Urine Blood Urine Nitrite Ur Leukocyte Esterase Urine RBC Urine WBC Ur Squamous Epith Cells Urine Bacteria Hyaline Casts Ur Random Sodium Ur Random Potassium Ur Random Chloride COVID-19 (MAX) COVID-19 Clin Com Assessment and Plan (1) Acute on chronic renal failure: Status: Acute (2) Hypercalcemia: Status: Acute (3) Hyperphosphatemia associated with renal failure: Status: Acute Plan A 71 years old lady with PMH of CKD stage 5, granulomatosis with polyangiitis, vasculitis among others who presents to the hospital with increased weakness and abnormal blood work. Acute [place] on chronic CKD 5 Creatinine improving slowly to 5.2 Likely related to dehydration, hypercalcemia and decreased oral intake Phosphorous trending down to 4.6 Continue sevelamer t.i.d. Nephrology consult Continue Gentle hydration Acute moderate hypercalcemia Could be secondary to vitamin-D ingestion Calcium trending down to 11.9 Pending PTH, vitamin-D Gentle hydration Restart torsemide Nephrology to follow Follow BMP Hypertension Continue amlodipine and carvedilol ANCA vasculitis Continue prednisone DVT PPX Heparin The patient will likely need overnight hospital stay for evaluation of hypercalcemia and acute kidney injury pending nephrology consult and improvement kidney function to prevent possible need for dialysis. Quality Stroke Does the patient have a stroke diagnosis?: No VTE Prior VTE?: No VTE Risk Level:: Medical - moderate - high VTE Device Contraindication: Treatment Not Indicated VTE Drug Contraindication: N/A - Med Ordered
[2021-12-27] MEDS: Torsemide 20 MG TABLET PO (11:43)
[2021-12-27] MEDS: amLODIPine Besylate 10 MG TABLET PO (11:43)
[2021-12-27] MEDS: ondansetron HCL 4 MG/2 ML VIAL IVPUSH (11:46)
--- NOTE | 2021-12-27 12:38 | P.CONNP_ITS ---
History of Present Illness Reason for Consult Consult date: 12/27/21 Reason for consult: BILLIE, CKD V, Hypercalcemia Chief Complaint Chief complaint: Hypercalcemia, BILLIE History of Present Illness Narrative: A 71 year old female with PMH of CKD stage 5, granulomatosis with polyangiitis, vasculitis on prednisone who presented to [facility] with increased weakness and abnormal blood work. Patient states that she has been having some nausea with occasional vomiting as well as headaches but otherwise denies shortness of breath, chest pain/palpitations and states that she has continued to urinate frequently. Blood work was consistent with moderate hypercalcemia of 13.5 with associated worsening kidney function stage 5. Admitted for further evaluation and treatment. ROS otherwise negative. 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 Hyperlipidemia Hypertension Lung nodules Surgical History Surgical History H/O hernia repair History of partial hysterectomy Social History Social History Alcohol intake: never Years Smoked: Five years Advance Directives: No Advance Directives Information Provided: No Advance Directives Date on File: 06/13/20 service: No Current occupational status: retired [employer] Allergies Allergy/AdvReac Type Severity Reaction Status Date / Time No Known Allergies Allergy Verified 12/26/21 14:37 Active Medications: Current Medications Acetaminophen (Acetaminophen 325 Mg Tablet) 650 mg PO Q6H PRN PRN Reason: Pain, Mild (Pain Scale 1-3) Amlodipine Besylate (Amlodipine Besylate 10 Mg Tablet) 10 mg PO DAILY@1200 [facility]ED; Protocol Last Admin: 12/27/21 11:43 Dose: 10 mg Carvedilol (Carvedilol 6.25 Mg Tablet) 6.25 mg PO BID@0800,1200 MAHAMED; Protocol Last Admin: 12/27/21 11:43 Dose: 6.25 mg Heparin Sodium (Porcine) (Heparin Sodium,Porcine 5,000 Unit/Ml Vial) 5,000 unit SUBCUT Q12H [facility] Last Admin: 12/27/21 08:10 Dose: 5,000 unit Sodium Chloride (Ns) 1,000 mls @ 100 mls/hr IVCONT .Q10H [facility] Last Admin: 12/27/21 04:06 Dose: 100 mls/hr Ondansetron HCl (Ondansetron Hcl 4 Mg/2 Ml Vial) 4 mg IVPUSH Q8H PRN PRN Reason: Nausea and Vomiting Last Admin: 12/27/21 11:46 Dose: 4 mg Pharmacy Consult (Consult Rx Perform Med Rec) 1 each MISCELLANE ONCE PRN PRN Reason: Consult order Potassium Chloride (Potassium Chloride Er 20 Meq Tab.Er.Prt) 20 meq PO DAILY [facility] Last Admin: 12/27/21 10:00 Dose: 20 meq Prednisone (Prednisone 20 Mg Tablet) 10 mg PO DAILY [facility] Last Admin: 12/27/21 10:00 Dose: 10 mg Sevelamer Carbonate (Sevelamer Carbonate Tablet 800 Mg Tablet) 800 mg PO BIDWM [facility] Last Admin: 12/27/21 10:00 Dose: 800 mg Sodium Chloride (0.9 % Sodium Chloride Flush 3 Ml Syringe) 3 ml IVFLUSH QSHIFT [facility] Last Admin: 12/27/21 08:10 Dose: Not Given Torsemide (Torsemide 20 Mg Tablet) 20 mg PO DAILY [facility]; Protocol Last Admin: 12/27/21 11:43 Dose: 20 mg Home Medications Medication Instructions Recorded Confirmed Last Taken Type sevelamer carbonate 800 mg tablet 800 mg PO BIDWM 07/05/20 12/26/21 12/26/21 [place] story cholecalciferol (vitamin D3) 25 25 mcg PO DAILY@1200 08/09/20 12/26/21 12/26/21 History mcg (1,000 unit) capsule torsemide 20 mg tablet 20 mg PO DAILY 08/09/20 12/26/21 12/26/21 History potassium chloride 20 mEq 20 meq PO DAILY 02/14/21 12/26/21 12/26/21 History tablet,extended release amlodipine 10 mg tablet 1 tab PO DAILY@1200 12/26/21 12/26/21 12/26/21 History carvedilol 6.25 mg tablet 1 tab PO BID@0800,1200 12/26/21 12/26/21 12/26/21 History ferrous sulfate 325 mg (65 mg 325 mg PO DAILY@1200 12/26/21 12/26/21 12/26/21 History iron) tablet ondansetron 8 mg disintegrating 8 mg PO BID PRN Nausea And Vomiting 12/26/21 12/26/21 12/26/21 History tablet prednisone 10 mg tablet 10 mg PO DAILY 12/26/21 12/26/21 12/26/21 History Physical Exam Vital Signs: Last Vital Signs Temp 97.5 F 12/27/21 08:56 Pulse 81 12/27/21 08:56 Resp 12 12/27/21 08:56 BP 141/53 H 12/27/21 08:56 Pulse Ox 92 12/27/21 08:56 O2 Del Method 12/27/21 08:56 BMI result Body Mass Index 19.5 Const General: comfortable and no acute distress Orientation/consciousness: patient oriented x3 HEENT Head: Yes normal to inspection, Yes normocephalic and Yes atraumatic Resp Auscultation: clear to auscultation bilaterally Cardio Jugular venous distension: no JVD Rate: regular rate Rhythm: regular rhythm Heart sounds: S1 normal heart sound present and S2 normal heart sound present GI Auscultation: normal bowel sounds Neuro General: patient oriented x3 Extrem General: Yes no clubbing, cyanosis or edema Results Lab Results Result Diagrams: 12/27/21 06:13 12/27/21 06:13 Lab results: Chemistry 12/26/21 12/27/21 14:58 06:13 Sodium 139 141 Potassium 4.6 3.8 Carbon Dioxide 29 28 BUN 94 H 86 H Creatinine 5.54 H* 5.18 H* Calcium 13.7 H* D 11.9 H D Phosphorus 5.8 H 4.6 H Hematology 12/26/21 12/27/21 14:58 06:13 WBC 9.1 8.8 Hgb 12.1 10.5 L Plt Count 376 325 Urinalysis 12/26/21 17:31 Urine Color Yellow Urine Appearance Clear Urine pH 5.5 Ur Specific [place] 1.010 Urine Protein 100 (2+) H Urine Glucose (UA) Negative Urine Ketones Negative Urine Blood Negative Urine Nitrite Negative Ur Leukocyte Esterase Trace H Urine RBC 0-2 Urine WBC 0-5 Ur Squamous Epith Cells 0-2 Hyaline Casts 3-5 Assessment and Plan (1) Hypercalcemia: Status: Acute (2) Acute on chronic renal failure: Status: Acute (3) Hyperphosphatemia associated with renal failure: Status: Acute Plan Acute on chronic renal failure, Hypercalcemia, Vasculitis, ANCA positive Plan: #) BILLIE in setting of CKD 5 Suspect dehydration and volume depletion from hypercalcemia and decreased oral intake Suspect secondary to VitD ingestion. COntinue with isotonic ivf's. If evidence of volume overload can uptitrate loop diuretic. Takes torsemide at home. Monitor serum calcium q 8 hours. renal panel daily. Check PTH, vitamin-D, iCa Can hold on zoledronic acid at this time Ca improving. Agree with starting phos binder therapy. #) Hypertension Continue amlodipine and carvedilol #) ANCA vasculitis Continue prednisone Procedures Date of Service Date of Service: 12/27/21
[2021-12-27 14:53] VITALS: BP 146/61; PULSE 81; RESP 12; TEMP 36.3; O2SAT 94
[2021-12-27 20:32] VITALS: BP 135/61; PULSE 86; RESP 18; TEMP 36.6; O2SAT 97
--- NOTE | 2021-12-27 20:37 | MHC.CM.PN ---
IMM 12/27. Met with admitted patient in ED overflow with bed assignment pending. A&Ox4. Son lives with patient. No DME/services. HCP on file. HCP/son Mejia Tran ([phone]). [place] x4. Pt has fistula placed anticipating need for dialysis, but is not currently having dialysis. D/C plan: home without services. Family will transport home. CM to follow for d/c needs.
--- NOTE | 2021-12-27 22:13 | PC.NURSE ---
pt up to commode with no assist - no issues. no complaints or apparent distress. will continue to monitor
[2021-12-28] MEDS: 0.9 % Sodium Chloride 1,000 ML 100 ML IVCONT (00:17)
[2021-12-28 00:19] VITALS: BP 151/62; PULSE 79; RESP 16; TEMP 37.1; O2SAT 95
--- NOTE | 2021-12-28 02:51 | PC.NURSE ---
Assumed care of patient at 2300. Patient is alert and oriented x3. L/s clear, has a dry cough, denies pain or discomfort at this time, vss. [place] within reach.
[2021-12-28 07:48] VITALS: BP 140/61; PULSE 82; RESP 16; O2SAT 97
[2021-12-28 08:30] LABS: Anion Gap 16 (12-20); Blood Urea Nitrogen 72 mg/dL (9-16); Carbon Dioxide 24 mmol/L (22-29); Chloride 104 mmol/L (96-108); Estimated Glomerular Filt Rate 9; Glucose Random 90 mg/dL (60-115); Potassium 3.8 mmol/L (3.3-5.1); Sodium 140 mmol/L (135-145)
[2021-12-28] MEDS: predniSONE 20 MG TABLET 10 MG PO (09:53)
[2021-12-28] MEDS: carvediloL 6.25 MG TABLET PO ×2 (09:53→14:23)
[2021-12-28] MEDS: Torsemide 20 MG TABLET PO (09:54)
[2021-12-28] MEDS: Heparin Sodium,Porcine 5,000 UNIT/ML VIAL 5000 UNIT SUBCUT (09:54)
[2021-12-28] MEDS: Potassium Chloride ER 20 MEQ TAB.ER.PRT PO (09:54)
[2021-12-28] MEDS: Sevelamer Carbonate Tablet 800 MG TABLET PO (09:54)
--- NOTE | 2021-12-28 12:10 | PM.DS ---
DS: Providers Provider Date of Service: 12/28/21 Date of admission: 12/26/21 18:17 Primary care physician: Christophe Mayo MD Consults: 12/26/21 17:56 Consult to Nephrology Stat Consulting Provider: Tor Khan Reason for consultation: Acute on chronic renal failure, hypercalcemia Has provider been notified: Yes DS: Diagnosis Discharge Diagnosis (1) Hypercalcemia: Status: Acute (2) Acute on chronic renal failure: Status: Acute (3) Hyperphosphatemia associated with renal failure: Status: Acute DS: Summary Hospital Course Hospital Course: Admission note HPI A 71 years old lady with PMH of CKD stage 5, granulomatosis with polyangiitis, vasculitis among others who presents to the hospital with increased weakness and abnormal blood work.? The patient went to see her primary care yesterday for evaluation of increased weakness.? She is complaining of muscle weakness and having no energy with increase fogging in her mind and associated constipation.? Denies any fever, chills, chest pain, shortness of breath, nausea, vomiting or urinary symptoms.? Blood work was consistent with moderate hypercalcemia of 13.5 with associated worsening kidney function stage 5.? Admitted for further evaluation and treatment. Hospital course The patient was admitted for evaluation of abnormal blood work increased weakness. Found to have acute kidney injury on top of chronic CKD stage 5 with creatinine at baseline around 4.6 and presented with almost 5.5 along with evidence of hypercalcemia of almost 14. Believed to be a result of vitamin D intake excessive. Nephrology evaluated the patient as she was treated with IV fluid, torsemide and holding vitamin-D supplement. Kidney function improved back to baseline. Calcium trended down to 11. Her symptoms improved significantly as she was able to ambulate with no reported weakness or dyspnea. Noted to have mildly elevated phosphate of 4.6. Continued on phosphate binders. PTH still pending but vitamin-D level is high at 73. Plan discussed with Dr. Mittal who. To discharge the patient home with encouraged oral fluid intake Patient was evaluated by physical therapy team who recommended home therapy. The patient refused to do PT at home. Discontinue all forms of vitamin-D supplement Drink plenty of fluids, mainly water Repeat blood work as outpatient and follow-up with Dr. Leiva for further evaluation and recommendations. Time Spent with Patient Time attestation: Total time spent providing and/or coordinating discharge services: Discharge coordination time: Greater than 30 minutes Quality: Safe Use of Opioids Does Pt have an Active Cancer Diagnosis on the Problem List?: No Quality: Stroke Does the patient have a stroke diagnosis?: No Physical Exam Vital Signs: Vital Signs: Last Vital Signs Temp 98.8 F 12/28/21 00:19 Pulse 82 12/28/21 07:48 Resp 16 12/28/21 07:48 BP 140/61 H 12/28/21 07:48 Pulse Ox 97 12/28/21 07:48 O2 Del Method 12/28/21 07:48 BMI result Body Mass Index 19.5 Const: Other: Constitutional : Alert, interactive, frail, not in distress Neck : Normal inspection, Supple Cardiovascular : RRR, no JVP, no lower extremity edema Respiratory : fair bilateral air entry, no crackles, wheezes or rhonchi Gastrointestinal: soft, lax, Normal bowel sounds, Non tender Skin : Warm, Dry Neurological : Alert & oriented x3, No focal deficit DS: Data Data Completed and Pending Completed studies during hospitalization [Text1]: Procedures Drainage of Left Lower Lung Lobe, Via Natural or Artificial Opening Endoscopic, Diagnostic (06/13/20) Excision of Left Kidney, Percutaneous Approach, Diagnostic (06/13/20) Excision of Left Lower Lobe Bronchus, Via Natural or Artificial Opening Endoscopic, Diagnostic (06/13/20) Excision of Left Upper Lobe Bronchus, Via Natural or Artificial Opening Endoscopic, Diagnostic (06/13/20) Extraction of Left Main Bronchus, Via Natural or Artificial Opening Endoscopic, Diagnostic (06/13/20) Extraction of Right Main Bronchus, Via Natural or Artificial Opening Endoscopic, Diagnostic (06/13/20) Insertion of Infusion Device into Inferior Vena Cava, Percutaneous Approach (06/13/20) Insertion of Infusion Device into Superior Vena Cava, Percutaneous Approach (06/13/20) Insertion of Tunneled Vascular Access Device into Chest Subcutaneous Tissue and Fascia, Percutaneous Approach (06/13/20) Introduction of Other Therapeutic Substance into Respiratory Tract, Via Natural or Artificial Opening Endoscopic (06/13/20) Performance of Urinary Filtration, Intermittent, Less than 6 Hours Per Day (06/13/20) Labs on day of discharge: Laboratory Results - last 24 hr 12/28/21 07:59 Sodium 140 Potassium 3.8 Chloride 104 Carbon Dioxide 24 Anion Gap 16 BUN 72 H Creatinine 4.86 H* Estim Creat Clear Calc 9.0 Estimated GFR 9 Random Glucose 90 Calcium 11.0 H D Discharge Plan Discharge Anticipated Discharge Date/Time: 12/28/21 12:04 Patient Disposition: Home, Self-Care Discharge Diagnosis: Acute kidney injury Elevated calcium level Elevated phosphate level Referrals: Christophe Mayo MD [Primary Care Provider] - 1 Week Discharge Medications: Continued carvedilol 6.25 mg tablet 1 tab PO BID@0800,1200 prednisone 10 mg Tablet 10 mg PO DAILY ondansetron 8 mg tablet,disintegrating 8 mg PO BID PRN (Reason: Nausea And Vomiting) amlodipine 10 mg tablet 1 tab PO DAILY@1200 ferrous sulfate 325 mg (65 mg iron) Tablet 325 mg PO DAILY@1200 sevelamer carbonate 800 mg tablet 800 mg PO BIDWM torsemide 20 mg tablet 20 mg PO DAILY potassium chloride 20 mEq tablet extended release 20 meq PO DAILY Discontinued cholecalciferol (vitamin D3) 25 mcg (1,000 unit) capsule 25 mcg PO DAILY@1200 Discharge Orders: Discharge Order (Routine); Ordered 12/28/21 Ordered By: Fernie Jovel Diet: drink more fluids Activity on Discharge: As tolerated Stand Alone Forms: Patient Portal Discharge page Other Ambulatory Orders: Basic Metabolic Panel (Routine) Timeframe: 5 Days Facility: [facility] - Location: Laboratory Ordered By: Fernie Jovel Care Plan Goals: Read below Health Concerns: Read below Plan of Treatment: Read below Assessment: You were admitted to the hospital for evaluation of increased weakness. Found to have worsening of your kidney function associated with elevated calcium and phosphate. Evaluated by Nephrology team as you were treated with IV fluid with good response as your kidney function improved back to baseline with a significant drop in calcium level which we believe is a result of taking vitamin-D supplement. . Hold forms of vitamin-D supplement Drink plenty of fluids, mainly water Repeat blood work as outpatient and follow-up with Dr. Leiva for further evaluation and recommendations. Discharge Date/Time: 12/28/21 15:40
--- NOTE | 2021-12-28 12:32 | MHC.CM.PN ---
pt medically cleared for d/c home no services, pt lives w/son who will transport.
[2021-12-28 12:51] LABS: Myeloperoxidase Antibody <1.0 AI; Proteinase 3 PR3 Antibodies <1.0 AI
[2021-12-28 13:17] LABS: PTHI 35 pg/mL (16-77)
[2021-12-28] MEDS: amLODIPine Besylate 10 MG TABLET PO (14:24)
[2021-12-29 14:21] LABS: Calcium, Ionized 6.7 mg/dL (4.8-5.6)
[2022-01-01 09:59] LABS: Calcium (PTHI) 13.2
--- NOTE | 2022-01-01 14:38 | P.CDIR_ITS ---
Documented by User: Christina Gallegos RN 01/01/22 14:42 Retrospective Query PHYSICIAN'S DOCUMENTATION REQUEST Date of Query: 01/01/22 [id number] Patient Name: Akanksha Tran Admit Date: 12/26/21 Dear Doctor, A review of the medical record indicates additional documentation may be needed. Please review below and update the documentation accordingly. Clinical Indicators: The diagnosis of Renal Osteodystrophy was documented on 12/26/21 but is not consistently noted in subsequent documentation. Risk Factors/Clinical Indicators/Treatments per ED note: clinical presentation consistent with worsening CKD of unclear etiology, symptomatic for hypercalcemia which is felt to be consistent with the renal osteodystrophy as opposed to occult malignancy. Please clarify the following: * Renal Osteodystrophy was present on admission and is now resolved * Renal Osteodystrophy was present on admission and is still being monitored, evaluated, or treated * Renal Osteodystrophy was ruled out * Renal Osteodystrophy is still a likely, suspected, probable diagnosis * Other (please specify) * Unable to determine Use of terms such as suspected, likely, concern for, or probable (associated with a specific diagnosis that is being evaluated, monitored, or treated as if it exists) are acceptable and can be coded in the inpatient setting, when documented at the time of discharge. Thank you, Christina Gallegos RN Extension: [phone] Please use your independent medical judgment in providing your response. THIS QUERY IS PART OF THE PERMANENT MEDICAL RECORD Documented by User: Fernie Jovel MD 01/09/22 15:50 Retrospective Query Provider Response: Other (unable to determine )
[2022-01-15 09:25] LABS: VITAMIN D (1,25 OH) D3 98 pg/mL; Vit D (1,25-Dihydroxy) Total 98 pg/mL (18-72); Vitamin D (1,25 OH) D2 <8 pg/mL
== END 2021-12-28 15:40 | disposition home or self-care (01) | DRG 683 ==
LOC: HO.ED 17:55 → HO.EDOVER 18:32
PROVIDERS: Admitting Provider Student in an Organized Health Care Education/Training Program; Emergency Provider Student in an Organized Health Care Education/Training Program; PCP Family Medicine; Visit Provider Student in an Organized Health Care Education/Training Program
DX: I12.0 Hypertensive chronic kidney disease with stage 5 chronic kidney disease or end stage renal disease (principal); M31.30 Wegener's granulomatosis without renal involvement; N17.9 Acute kidney failure, unspecified; N18.5 Chronic kidney disease, stage 5; N25.0 Renal osteodystrophy; E83.39 Other disorders of phosphorus metabolism; E83.52 Hypercalcemia; I77.82 Antineutrophilic cytoplasmic antibody [ANCA] vasculitis; E86.0 Dehydration; Z99.2 Dependence on renal dialysis; E78.5 Hyperlipidemia, unspecified; Z20.822 Contact with and (suspected) exposure to COVID-19; Z79.52 Long term (current) use of systemic steroids; Z79.899 Other long term (current) drug therapy
CPT/HCPCS: 36415; 80048; 80053; 81001; 82306; 82330; 82436; 82652; 83970; 84100; 84133; 84300; 85025; 85027; 85652; 86021; 86140; 87635; 93005; 97162; 99285; J2405

== ENCOUNTER 2022-01-02 13:46 | Outpatient (REF) | payer MEDICARE, OTHER, SELFPAY ==
[2022-01-02 15:23] LABS: Anion Gap 22 (12-20); Blood Urea Nitrogen 94 mg/dL (9-16); Calcium 13.4 mg/dL (8.4-10.2); Carbon Dioxide 27 mmol/L (22-29); Chloride 95 mmol/L (96-108); Estimated Glomerular Filt Rate 7; Glucose Random 111 mg/dL (60-115); Potassium 4.6 mmol/L (3.3-5.1); Sodium 139 mmol/L (135-145)
== END 2022-01-02 13:47 | disposition home or self-care (01) ==
LOC: HO.LAB 13:46
PROVIDERS: PCP Physician Assistant; Visit Provider Student in an Organized Health Care Education/Training Program
DX: Z13.89 Encounter for screening for other disorder (principal)
CPT/HCPCS: 36415; 80048

== ENCOUNTER 2022-01-02 16:10 | Inpatient (IN) | payer MEDICARE, OTHER, SELFPAY ==
[2022-01-02 17:32] VITALS: BP 147/64; PULSE 82; RESP 19; TEMP 36.6; O2SAT 98; BMI 19.5
--- NOTE | 2022-01-02 17:36 | ECG_ITS ---
Test Reason : abnormal labs Blood Pressure : / mmHG Vent. Rate : 081 BPM Atrial Rate : 081 BPM P-R Int : 156 ms QRS Dur : 086 ms QT Int : 356 ms P-R-T Axes : 062 001 033 degrees QTc Int : 413 ms Normal sinus rhythm Normal ECG When compared with ECG of 26-DEC-2021 19:30, No significant change was found Referred By: Generic ED Physician Electronically Signed By:PINO ABEL MD
[2022-01-02 17:59] LABS: MANUAL DIFF FLAG NO
[2022-01-02 18:00] LABS: Basophils Percent Auto 0.6 % (0-2); Eosinophils Absolute Auto 0.1 X10*3/uL (0.0-0.4); Hematocrit 34.4 % (37.0-47.0); Hemoglobin 11.1 g/dl (12.0-16.0); Imm Gran Abs Auto 0.03 X10*3/uL (0.00-0.03); Imm Gran Pct Auto 0.4 % (0.0-0.4); Lymphocytes Absolute Auto 0.7 X10*3/uL (1.2-4.9); Lymphocytes Percent Auto 9.2 % (20-40); Mean Corpuscular HGB Conc 32.3 g/dl (31.0-35.0); Mean Corpuscular Hemoglobin 28.8 pg (27.0-33.0); Mean Corpuscular Volume 89.4 fL (80.0-98.0); Mean Platelet Volume 10.2 fL (9.4-12.3); Monocytes Absolute Auto 0.8 X10*3/uL (0.1-1.2); Monocytes Percent Auto 11.2 % (2-11); Neutrophils Absolute Auto 5.6 x10*3/uL (2.0-8.3); Neutrophils Percent Auto 77.6 % (45-73); Platelet Count 318 X10*3/uL (160-400); Red Blood Count 3.85 X10*6/uL (4.20-5.50); Red Cell Distribution Width 12.6 % (11.0-16.0); White Blood Count 7.3 X10*3/uL (4.8-10.8)
[2022-01-02 18:23] LABS: Troponin-I High Sensitivity 13.5 ng/L (<3.5-17.0)
[2022-01-02 18:25] LABS: Anion Gap 19 (12-20); Blood Urea Nitrogen 93 mg/dL (9-16); Calcium 12.8 mg/dL (8.4-10.2); Carbon Dioxide 26 mmol/L (22-29); Chloride 97 mmol/L (96-108); Creatinine Clr Calc Pharmacy 7.6; Estimated Glomerular Filt Rate 7; Glucose Random 86 mg/dL (60-115); Magnesium 2.6 mg/dL (1.6-2.6); Phosphorus 5.6 mg/dL (2.7-4.5); Potassium 4.3 mmol/L (3.3-5.1); Sodium 138 mmol/L (135-145)
--- OUTSIDE RECORDS SUMMARY | 2022-01-02 20:11 | XMS_ITS | Continuity of Care Document ---
:1950 Author Organization [facility] Address [address] [place] [address]- Care Team Providers Name Role Phone Maria Esther JURADO, Christophe Lopez Primary Care Physician Encounter 06/28/20 - 08/17/20 [facility] [address] [place] [address]- Discharge Disposition: PER CLIENT REQUEST Allergies, Adverse Reactions, Alerts Substance Reaction Severity Status NKA Active Medications cyclophosphamide 25 mg oral capsule 5 capsule = 125 mg, By Mouth, Daily in AM, # 450 capsule, 1 Refills, Maintenance, 06/27/20 13:15:00 EDT, Capsule, [facility], Partial fill upon patient request if the prescription is for a schedule II opioid drug., 168, cm, 06/27/20 11:1... Start Date: 06/27/20 Status: OrderedIron 100 Plus oral tablet 1 tablet, By Mouth, Daily, 0 Refills, Maintenance, 08/05/20 11:08:00 EDT, Partial fill upon patient request if the prescription is for a schedule II opioid drug. Start Date: 08/05/20 Status: OrderedLipitor 10 mg oral tablet 1 tablet = 10 mg, By Mouth, Daily at bedtime, # 30 tablet, 0 Refills, Maintenance, 06/27/20 10:33:00EDT, Tablet, [facility], Partial fill upon patient request if the prescription is for a schedule II opioid drug., 168, cm, 06/27/20 0:09... Start Date: 06/27/20 Status: OrderedNorvasc 10 mg oral tablet 10 mg, 1, tablet, By Mouth, Daily, # 30 tablet, Refills 0, Tot. Refills 0, Maintenance, 06/27/20 10:33:00 EDT, Route to Pharmacy Electronically, [facility], Partial fill upon patient request if the prescription is for a schedule II opioi... Start Date: 06/27/20 Status: OrderedpredniSONE 20 mg oral tablet 3 tablet = 60 mg, By Mouth, Daily in AM, # 90 tablet, 0 Refills, Maintenance, 06/27/20 10:34:00 EDT,Tablet, [facility], Partial fill upon patient request if the prescription is for a schedule II opioid drug., neeraj Lau, 06/27/20 0:09:00 E... Start Date: 06/27/20 Status: Orderedsevelamer carbonate 800 mg oral tablet 1 tablet = 800 mg, By Mouth, 3 times a day with meals, # 90 tablet, 0 Refills, Maintenance, 06/27/2109:35:00 EDT, Tablet, [facility], Partial fill upon patient request if the prescription is for a schedule II opioid drug., neeraj Lau, 06/09... Start Date: 06/27/20 Status: Orderedsodium bicarbonate 650 mg oral tablet 1 tablet = 650 mg, By Mouth, 2 times a day, # 60 tablet, 0 Refills, Maintenance, 06/27/20 10:35:00 EDT, Tablet, [facility], Partial fill upon patient request if the prescription is for a schedule II opioid drug., neeraj Lau, 06/27/20 0:09:0... Start Date: 06/27/20 Status: OrderedVitamin D 62982 iu oral capsule 50,000 International_Units, By Mouth, Daily, Refills 0, Maintenance, 08/05/20 11:08:00 EDT, Partial fill upon patient request if the prescription is for a schedule II opioid drug. Start Date: 08/05/20 Status: Ordered Problem List Condition Effective Dates Status Health Status Informant Mixed Incontinence (Female) Active (Male)(Confirmed) Post-hysterectomy vaginal vault Active prolapse(Confirmed) Unilateral simple inguinal Active hernia(Confirmed)
--- OUTSIDE RECORDS SUMMARY | 2022-01-02 20:11 | XMS_ITS | Continuity of Care Document ---
:1950 Author Organization [facility] Address [address] [place] [address]- Care Team Providers Name Role Phone Christophe Mayo MD Primary Care Physician [place] [facility] [place] 05[place] [address] Attending Physician: Marisela Douglas MD Admitting Physician: Marisela Douglas MD Referring Physician: Marisela Douglas MD Allergies, Adverse Reactions, Alerts No Known Allergies Medications cyclophosphamide 25 mg oral capsule 5 capsule = 125 mg, By Mouth, Daily in AM, # 450 capsule, 1 Refills, Maintenance, 06/27/20 13:15:00 EDT, Capsule, [facility], Partial fill upon patient request [...] tablet, 0 Refills, Maintenance, 06/27/20 10:33:00EDT, Tablet, [facility], Partial fill upon patient request if the prescription is for a schedule II opioid drug., 168, cm, 06/27/20 0:09... Start Date: 06/27/20 Status: OrderedNorvasc 10 mg oral tablet 10 mg, 1, tablet, By Mouth, Daily, # 30 tablet, Refills 0, Tot. Refills 0, Maintenance, 06/27/20 10:33:00 EDT, Route to Pharmacy Electronically, [facility], Partial fill upon patient request if the prescription is for a schedule II opioi... Start Date: 06/27/20 Status: OrderedpredniSONE 20 mg oral tablet 3 tablet = 60 mg, By Mouth, Daily in AM, # 90 tablet, 0 Refills, Maintenance, 06/27/20 10:34:00 EDT,Tablet, [facility], Partial fill upon patient request if the prescription is for a schedule II opioid drug., 168, cm, 06/27/20 0:09:00 E... Start Date: 06/27/20 Status: Orderedsevelamer carbonate 800 mg oral tablet 1 tablet = 800 mg, By Mouth, 3 times a day with meals, # 90 tablet, 0 Refills, Maintenance, 06/27/2109:35:00 EDT, Tablet, [facility], Partial fill upon patient request if the prescription is for a schedule II opioid drug., Sid, cm, 06/09... Start Date: 06/27/20 Status: Orderedsodium bicarbonate 650 mg oral tablet 1 tablet = 650 mg, By Mouth, 2 times a day, # 60 tablet, 0 Refills, Maintenance, 06/27/20 10:35:00 EDT, Tablet, [facility], Partial fill upon patient request if the prescription is for a schedule II opioid drug., Sid, cm, 06/27/20 0:09:0... Start Date: 06/27/20 Status: OrderedVitamin D 72007 iu oral capsule 50,000 International_Units, By Mouth, [...]
--- OUTSIDE RECORDS SUMMARY | 2022-01-02 20:11 | XMS_ITS | Continuity of Care Document ---
:1950 Author Organization [facility] Address [address] [place] [address]- Care Team Providers Name Role Phone Christophe Mayo MD Primary Care Physician Encounter [facility] [place] Date(s): 06/21/21 - 06/21/[address] [address]- Discharge Disposition: A-D/C Home Attending Physician: Johana Soliz MD Admitting Physician: Johana Soliz MD Referring Physician: Johana Soliz MD Allergies, Adverse Reactions, Alerts No Known Allergies Medications carvedilol 6.25 mg oral tablet 6.25 mg, 1, tablet, By Mouth, 2 times a day, # 60 tablet, Refills 0, Maintenance, 06/18/21 16:20:00 EDT, Partial fill upon patient request if the prescription is for a schedule II opioid drug. Start Date: 06/18/21 Status: OrderedcloNIDine 0.1 mg oral tablet 0.1 mg, 1, tablet, By Mouth, 2 times a day, # 60 tablet, Refills 0, Maintenance, 06/18/21 16:22:00 EDT, Partial fill upon patient request if the prescription is for a schedule II opioid drug. Start Date: 06/18/21 Status: OrderedFerrous Sulfate ER 65 mg, By Mouth, Daily before lunch, Refills 0, Maintenance, 06/18/21 16:26:00 EDT, Partial fill upon patient request if the prescription is for a schedule II opioid drug. Start Date: 06/18/21 Status: OrderedLipitor 10 mg oral tablet 1 tablet = 10 mg, By Mouth, Daily at bedtime, # 30 tablet, 0 Refills, Maintenance, 06/27/20 10:33:00EDT, Tablet, [facility], Partial fill upon patient request if the prescription is for a schedule II opioid drug., 168, cm, 06/27/20 0:09... Start Date: 06/27/20 Status: OrderedNorvasc 10 mg oral tablet 10 mg, 1, tablet, By Mouth, Daily at bedtime, # 30 tablet, Refills 0, Tot. Refills 0, Maintenance, 06/27/20 10:33:00 EDT, Route to Pharmacy Electronically, [facility], Partial fill upon patient request if the prescription is for a schedu... Start Date: 06/27/20 Status: OrderedPotassium Chloride = 20 mEq, By Mouth, Daily, 0 Refills, Maintenance, 06/18/21 16:22:00 EDT, Partial fill upon patient request if the prescription is for a schedule II opioid drug. Start Date: 06/18/21 Status: OrderedPredniSONE = 20 mg, By Mouth, Daily, 0 Refills, Maintenance, 06/18/21 16:23:00 EDT, Partial fill upon patient request if the prescription is for a schedule II opioid drug. Start Date: 06/18/21 Status: Orderedsevelamer carbonate 800 mg oral tablet 1 tablet = 800 mg, By Mouth, Daily in AM, # 90 tablet, 0 Refills, Maintenance, 06/27/20 10:35:00 EDT, Tablet, [facility], Partial fill upon patient request if the prescription is for a schedule II opioid drug., 168, cm, 06/27/20 0:09:00... Start Date: 06/27/20 Status: Orderedtorsemide 20 mg oral tablet 2 tablet = 40 mg, By Mouth, Daily in AM, # 30 tablet, 0 Refills, Maintenance, 06/18/21 16:24:00 EDT,Tablet, Partial fill upon patient request if the prescription is for a schedule II opioid drug. Start Date: 06/18/21 Status: OrderedVitamin D3 1000 intl units oral tablet 1 tablet = 25 mcg, By Mouth, Daily, # 30 tablet, 0 Refills, Maintenance, 06/18/21 16:21:00 EDT, Tablet, Partial fill upon patient request if the prescription is for a schedule II opioid drug. Start Date: 06/18/21 Status: Ordered Problem List Condition Effective Dates Status Health Status Informant Mixed Incontinence (Female) Active (Male)(Confirmed) Post-hysterectomy vaginal vault Active prolapse(Confirmed) Unilateral simple inguinal Active hernia(Confirmed) Vital Signs Most recent to oldest 1 2 3 [Reference Range]: Height 167.6 cm 167.6 cm (06/21/21 7:53 AM) (06/18/21 4:51 PM) Weight 64.2 kg 63.1 kg (06/21/21 7:53 AM) (06/18/21 4:51 PM) Oxygen Saturation [94-100 96 % 95 % 99 % %] (06/21/21 11:00 AM) (06/21/21 10:45 AM) (06/21/21 7 :53 AM) Pulse Rate [55-90 bpm] 68 bpm (06/21/21 7:53 AM) Body Mass Index 22.86 22.46 [18.5-24.99] (06/21/21 7:53 AM) (06/18/21 4:51 PM) Blood Pressure 147/76 mm Hg 153/77 mm Hg 147/81 mm Hg [90-138/55-84 mm Hg] *H* *H* *H* (06/21/21 11:00 AM) (06/21/21 10:45 AM) (06/21/21 7 :53 AM) Respiratory Rate [16-30 20 br/min 31 br/min 16 br/mi n br/min] (06/21/21 11:00 AM) *H* (06/21/21 7:53 AM) (06/21/21 10:45 AM) Temperature [96.8-100.4 97.8 DegF 97.5 DegF DegF] (06/21/21 10:45 AM) (06/21/21 7:53 AM) Mode of Delivery (Oxygen) Room air Room air Room a ir (06/21/21 1:00 PM) (06/21/21 11:00 AM) (06/21/21 10 :45 AM) Blood pressure sites Arm, right Arm, right (06/21/21 10:45 AM) (06/21/21 7:53 AM) Temperature Route Temporal Temporal (06/21/21 10:45 AM) (06/21/21 7:53 AM) Dry Weight 64.2 kg 63.1 kg (06/21/21 7:53 AM) (06/18/21 4:51 PM) Weight Obtained Via Standing scale Patient/family stated (06/21/21 7:53 AM) (06/18/21 4:51 PM) Dry Weight Obtained Via Standing scale Patient/family stated (06/21/21 7:53 AM) (06/18/21 4:51 PM)
--- OUTSIDE RECORDS SUMMARY | 2022-01-02 20:11 | XMS_ITS | Continuity of Care Document ---
:1950 Author Organization [facility] Address [address] [place] [address]- Care Team Providers Name Role Phone Christophe Mayo MD [id number] Date[facility] 07[facility]22[facility] [address] [place] [id number]- Attending Physician: Johana Soliz MD Admitting Physician: [...] tablet, 0 Refills, Maintenance, 06/27/20 10:33:00EDT, Tablet, [facility], Partial fill upon patient request if the prescription is for a schedule II opioid drug., 168, cm, 06/27/20 0:09... Start Date: 06/27/20 Status: OrderedNorvasc 10 mg oral tablet 10 mg, 1, tablet, By Mouth, Daily at bedtime, # 30 tablet, Refills 0, Tot. Refills 0, Maintenance, 06/27/20 10:33:00 EDT, Route to Pharmacy Electronically, [facility], Partial fill upon patient [...] 0 Refills, Maintenance, 06/27/20 10:35:00 EDT, Tablet, [facility], Partial fill upon patient request [...]
--- OUTSIDE RECORDS SUMMARY | 2022-01-02 20:11 | XMS_ITS | Continuity of Care Document ---
:1950 Author Organization [facility] Address [address] [place] [address]- Care Team Providers Name Role Phone Christophe Mayo MD Primary Care Physician [place] [facility] [place](s): 04/16/21 - 05/23/[address] [address] Attending Physician: Marisela Douglas MD Admitting Physician: Marisela Douglas MD Referring Physician: Marisela Douglas MD Allergies, Adverse Reactions, Alerts No Known Allergies Medications cyclophosphamide 25 mg oral capsule 5 capsule = 125 mg, By Mouth, Daily in AM, # 450 capsule, 1 Refills, Maintenance, 06/27/20 13:15:00 EDT, Capsule, [facility], Partial fill upon patient [...] tablet, 0 Refills, Maintenance, 06/27/20 10:33:00EDT, Tablet, [facility], Partial fill upon patient request if the prescription is for a schedule II opioid drug., 168, cm, 06/27/20 0:09... Start Date: 06/27/20 Status: OrderedNorvasc 10 mg oral tablet 10 mg, 1, tablet, By Mouth, Daily, # 30 tablet, Refills 0, Tot. Refills 0, Maintenance, 06/27/20 10:33:00 EDT, Route to Pharmacy Electronically, [facility], Partial fill upon patient request if the prescription is for a schedule II opioi... Start Date: 06/27/20 Status: OrderedpredniSONE 20 mg oral tablet 3 tablet = 60 mg, By Mouth, Daily in AM, # 90 tablet, 0 Refills, Maintenance, 06/27/20 10:34:00 EDT,Tablet, [facility], Partial fill upon patient request if the prescription is for a schedule II opioid drug., 168, cm, 06/27/20 0:09:00 E... Start Date: 06/27/20 Status: Orderedsevelamer carbonate 800 mg oral tablet 1 tablet = 800 mg, By Mouth, 3 times a day with meals, # 90 tablet, 0 Refills, Maintenance, 06/27/2109:35:00 EDT, Tablet, [facility], Partial fill upon patient request if the prescription is for a schedule II opioid drug., Sid, cm, 06/09... Start Date: 06/27/20 Status: Orderedsodium bicarbonate 650 mg oral tablet 1 tablet = 650 mg, By Mouth, 2 times a day, # 60 tablet, 0 Refills, Maintenance, 06/27/20 10:35:00 EDT, Tablet, [facility], Partial fill upon patient request if the prescription is for a schedule II opioid drug., Sid, cm, 06/27/20 0:09:0... Start Date: 06/27/20 Status: OrderedVitamin D 32845 iu oral capsule 50,000 International_Units, By Mouth, [...]
--- OUTSIDE RECORDS SUMMARY | 2022-01-02 20:11 | XMS_ITS | Continuity of Care Document ---
:1950 Author Organization [facility] Address [address] [place] [address]- Care Team Providers Name Role Phone Christophe Mayo MD Primary Care Physician Encounter [facility] [place](s): 06/22/21 - 07/22/21 [facility] [address] [place] [id number]- Attending Physician: Maurice Jaeger Admitting Physician: Maurice Jaeger Referring Physician: Maurice Jaeger Allergies, Adverse Reactions, Alerts No Known Allergies [...] tablet, 0 Refills, Maintenance, 06/27/20 10:33:00EDT, Tablet, [facility], Partial fill upon patient request if the prescription is for a schedule II opioid drug., 168, cm, 06/27/20 0:09... Start Date: 06/27/20 Status: OrderedNorvasc 10 mg oral tablet 10 mg, 1, tablet, By Mouth, Daily at bedtime, # 30 tablet, Refills 0, Tot. Refills 0, Maintenance, 06/27/20 10:33:00 EDT, Route to Pharmacy Electronically, [facility], Partial fill upon patient request if [...] 0 Refills, Maintenance, 06/27/20 10:35:00 EDT, Tablet, [facility], Partial fill upon patient request if [...]
--- OUTSIDE RECORDS SUMMARY | 2022-01-02 20:11 | XMS_ITS | Continuity of Care Document ---
:1950 Author Organization [facility] Address [address] [place] [address]- Care Team Providers Name Role Phone Christophe Mayo MD Primary Care Physician Encounter [facility] [place] Date(s): 06/21/20 - 06/27/[address] [address] Discharge Disposition: A-Transfer VNA/Home Health Attending Physician: Jaden Stewart MD Admitting Physician: Huang Fiore MD, Ramirez Randall Referring Physician: Huang Fiore MD, Ramirez Randall Allergies, Adverse Reactions, Alerts Substance Reaction Severity Status NKA Active Medications amLODIPine 10 mg oral tablet 10 mg, Tablet, By Mouth, 06/27/20 10:57:00 EDT Start Date: 06/27/20 Stop Date: 06/27/20 Status: Completedcyclophosphamide 25 mg oral capsule 5 capsule = 125 mg, By Mouth, Daily in AM, # 450 capsule, 1 Refills, Maintenance, 06/27/20 13:15:00 EDT, Capsule, [facility], Partial fill upon patient request if the prescription is for a schedule II opioid drug., 168, cm, 06/27/20 11:1... Start Date: 06/27/20 Status: OrderedLipitor 10 mg oral tablet 1 tablet = 10 mg, By Mouth, Daily at bedtime, # 30 tablet, 0 Refills, Maintenance, 06/27/20 10:33:00EDT, Tablet, [facility], Partial fill upon patient request if the prescription is for a schedule II opioid drug., 168, cm, 06/27/20 0:09... Start Date: 06/27/20 Status: OrderedNorvasc 10 mg oral tablet 10 mg, 1, tablet, By Mouth, Daily, # 30 tablet, Refills 0, Tot. Refills 0, Maintenance, 06/27/20 10:33:00 EDT, Route to Pharmacy Electronically, [facility], Partial fill upon patient request if the prescription is for a schedule II opioi... Start Date: 06/27/20 Status: OrderedpredniSONE 20 mg oral tablet 3 tablet = 60 mg, By Mouth, Daily in AM, # 90 tablet, 0 Refills, Maintenance, 06/27/20 10:34:00 EDT,Tablet, [facility], Partial fill upon patient request if the prescription is for a schedule II opioid drug., 168, cm, 06/27/20 0:09:00 E... Start Date: 06/27/20 Status: Orderedsevelamer carbonate 800 mg oral tablet 1 tablet = 800 mg, By Mouth, 3 times a day with meals, # 90 tablet, 0 Refills, Maintenance, 06/27/2109:35:00 EDT, Tablet, [facility], Partial fill upon patient request if the prescription is for a schedule II opioid drug., 168, cm, 06/09... Start Date: 06/27/20 Status: Orderedsodium bicarbonate 650 mg oral tablet 1 tablet = 650 mg, By Mouth, 2 times a day, # 60 tablet, 0 Refills, Maintenance, 06/27/20 10:35:00 EDT, Tablet, [facility], Partial fill upon patient request if the prescription is for a schedule II opioid drug., 168, cm, 06/27/20 0:09:0... Start Date: 06/27/20 Status: Ordered Problem List Condition Effective Dates Status Health Status Informant Mixed Incontinence (Female) Active (Male)(Confirmed) Post-hysterectomy vaginal vault Active prolapse(Confirmed) Unilateral simple inguinal Active hernia(Confirmed) Vital Signs Most recent to oldest 1 2 3 [Reference Range]: Height 168 cm 168 cm 168 cm (06/27/20 11:19 AM) (06/27/20 12:09 AM) (06/26/20 3 :30 PM) Weight 84.1 kg 81.3 kg 81.3 kg (06/26/20 4:18 PM) (06/26/20 11:16 AM) (06/26/20 4: 55 AM) Oxygen Saturation [94-100 %] 98 % 97 % 94 % (06/27/20 11:19 AM) (06/27/20 12:09 AM) (06/26/20 3 :30 PM) Pulse Rate [55-90 bpm] 101 bpm 79 bpm 81 bpm *H* (06/27/20 12:09 AM) (06/26/20 3:30 PM) (06/27/20 11:19 AM) Body Mass Index [18.5-24.99] 28.81 29.05 29. 34 *H* *H* *H* (06/26/20 4:55 AM) (06/25/20 4:42 AM) (06/24/20 5:2 3 AM) Blood Pressure [90-138/55-84 142/69 mm Hg 143/69 mm Hg 149 /83 mm Hg mm Hg] *H* *H* *H* (06/27/20 11:19 AM) (06/27/20 11:14 AM) (06/27/20 1 2:09 AM) Respiratory Rate [16-30 20 br/min 18 br/min 18 br/mi n br/min] (06/27/20 11:19 AM) (06/27/20 12:09 AM) (06/26/20 3 :30 PM) Temperature [96.8-100.4 97.7 DegF 98.1 DegF 98.2 Deg F DegF] (06/27/20 11:19 AM) (06/27/20 12:09 AM) (06/26/20 3 :30 PM) Mode of Delivery (Oxygen) Room air Room air Room a ir (06/27/20 12:09 AM) (06/26/20 3:30 PM) (06/26/20 11 :39 AM) Blood pressure sites Arm, right Arm, left Arm, left (06/27/20 11:19 AM) (06/27/20 12:09 AM) (06/26/20 3 :30 PM) Temperature Route Oral Oral Oral (06/27/20 11:19 AM) (06/27/20 12:09 AM) (06/26/20 3 :30 PM) Dry Weight 75.1 kg (06/21/20 11:03 PM) Weight Obtained Via Bed scale Bed scale Bed scale (06/26/20 4:55 AM) (06/25/20 4:42 AM) (06/24/20 5:2 3 AM) Dry Weight Obtained Via Bed scale (06/21/20 11:03 PM)
--- OUTSIDE RECORDS SUMMARY | 2022-01-02 20:11 | XMS_ITS | Continuity of Care Document ---
:1950 Author Organization [facility] Address [address] [place] [address]- Care Team Providers Name Role Phone Christophe Mayo MD Primary Care Physician Encounter [facility] [place] Date(s): 06/27/20 - 07/27/[address] [address] Attending Physician: Not on Staff, Attending MD Admitting Physician: Not on Staff, Admitting MD Referring Physician: Not on Staff, Referring MD Allergies, Adverse Reactions, Alerts Substance Reaction Severity Status NKA Active Medications cyclophosphamide 25 mg oral capsule 5 capsule = 125 mg, By Mouth, Daily in AM, # 450 capsule, 1 Refills, Maintenance, 06/27/20 13:15:00 EDT, Capsule, [facility], Partial fill upon patient request if the prescription is for a schedule II opioid drug., 168, cm, 06/27/20 11:1... Start Date: 06/27/20 Status: OrderedLipitor 10 mg oral tablet 1 tablet = 10 mg, By Mouth, Daily at bedtime, # 30 tablet, 0 Refills, Maintenance, 06/27/20 10:33:00EDT, Tablet, [facility], Partial fill upon patient request if the prescription is for a schedule II opioid drug., 168, cm, 06/27/20 0:09... Start Date: 06/27/20 Status: OrderedNorvasc 10 mg oral tablet 10 mg, 1, tablet, By Mouth, Daily, # 30 tablet, Refills 0, Tot. Refills 0, Maintenance, 06/27/20 10:33:00 EDT, Route to Pharmacy Electronically, [facility], Partial fill upon patient request if the prescription is for a schedule II opioi... Start Date: 06/27/20 Status: OrderedpredniSONE 20 mg oral tablet 3 tablet = 60 mg, By Mouth, Daily in AM, # 90 tablet, 0 Refills, Maintenance, 06/27/20 10:34:00 EDT,Tablet, [facility], Partial fill upon patient request if the prescription is for a schedule II opioid drug., 168, cm, 06/27/20 0:09:00 E... Start Date: 06/27/20 Status: Orderedsevelamer carbonate 800 mg oral tablet 1 tablet = 800 mg, By Mouth, 3 times a day with meals, # 90 tablet, 0 Refills, Maintenance, 06/27/2109:35:00 EDT, Tablet, [facility], Partial fill upon patient request if the prescription is for a schedule II opioid drug., 168, cm, 06/09... Start Date: 06/27/20 Status: Orderedsodium bicarbonate 650 mg oral tablet 1 tablet = 650 mg, By Mouth, 2 times a day, # 60 tablet, 0 Refills, Maintenance, 06/27/20 10:35:00 EDT, Tablet, [facility], Partial fill upon patient request if the prescription is for a schedule II opioid drug., 168, cm, 06/27/20 0:09:0... Start Date: 06/27/20 Status: Ordered Problem List Condition Effective Dates Status Health Status Informant Mixed Incontinence (Female) Active (Male)(Confirmed) Post-hysterectomy vaginal vault Active prolapse(Confirmed) Unilateral simple inguinal Active hernia(Confirmed)
--- NOTE | 2022-01-02 20:25 | ED_ITS ---
HPI - General Adult General Chief complaint: Recheck/Abnormal Lab/Rx Stated complaint: high calcium sent by Dr. Deleon Time Seen by Provider: 01/02/22 20:08 History of Present Illness HPI narrative: patient is a 71-year-old female with a history of acute on chronic renal insufficiency. History of hypercalcemia. Patient was evaluated in the hospital thought it was secondary to overdose of vitamin- D. The vitamin-D was halted. Patient is given to [place] IV fluids. Creatinine came back. Patient's calcium decreased. Presented back to the ED today because there is worsening labs noted on an outpatient basis. Patient's calcium is back up the 13. Patient's renal function has decreased. Came in for further evaluation. No fever no chills no cough no congestion or persistent symptoms. Patient denies any focal weakness. Positive generalized aches. Related Data Home Medications Medication Instructions Recorded Confirmed sevelamer carbonate 800 mg tablet 800 mg PO BIDWM 07/05/20 12/26/21 torsemide 20 mg tablet 20 mg PO DAILY 08/09/20 12/26/21 potassium chloride 20 mEq 20 meq PO DAILY 02/14/21 12/26/21 tablet,extended release amlodipine 10 mg tablet 1 tab PO DAILY@1200 12/26/21 12/26/21 carvedilol 6.25 mg tablet 1 tab PO BID@0800,1200 12/26/21 12/26/21 ferrous sulfate 325 mg (65 mg 325 mg PO DAILY@1200 12/26/21 12/26/21 iron) tablet ondansetron 8 mg disintegrating 8 mg PO BID PRN Nausea And Vomiting 12/26/21 12/26/21 tablet prednisone 10 mg tablet 10 mg PO DAILY 12/26/21 12/26/21 Allergies Allergy/AdvReac Type Severity Reaction Status Date / Time No Known Allergies Allergy Verified 12/26/21 14:37 Review of Systems Review of Systems: Positive generalized malai PMFSH Past Medical History Attestation statement: The following information was validated with the patient. 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 Oriented X3. No acute distress. Eyes: Pupils equal, round and reactive to light. ENT: Pharynx normal. Neck: Normal inspection. Neck supple. No lymph nodes noted. No crepitus CVS: Normal heart rate and rhythm. Pulses normal. Normal S1 and S2 Respiratory: No respiratory distress. Breath sounds normal. No Wheezing. No rales Abdomen: Soft and nontender. No rigidity. No distention. good BS x4 Skin: Skin warm and dry. Normal skin color. Normal skin turgor. Extremities: No lower extremity edema. Neurovascular intact to all extremities. No Lacerations. No Rash Neuro: Oriented X 3. No motor deficit. No sensory deficit. Moving all extermities. No slurred speech Medical Decision Making MDM Narrative Medical decision making narrative: patient's EKG showed a sinus pattern heart rate is 70 KS QRS QT within normal limits is no acute ST segment elevation noted. Patient creatinine had worsened to 5.8 from baseline approximately 4.5. Patient's calcium is elevated again to 12.8. Will require admission for further evaluation. Patient is currently in stable condition. Will start patient on IV fluids will increase the dose to 0 cm I would currently Lab Data Result diagrams: 01/02/22 17:51 01/02/22 17:51 Labs: Lab Results 01/02/22 01/02/22 01/02/22 Range/Units 17:51 17:51 17:51 WBC 7.3 (4.8-10.8) X10*3/uL RBC 3.85 L (4.20-5.50) X10*6/uL Hgb 11.1 L (12.0-16.0) g/dl Hct 34.4 L (37.0-47.0) % MCV 89.4 (80.0-98.0) fL MCH 28.8 (27.0-33.0) pg MCHC 32.3 (31.0-35.0) g/dl RDW 12.6 (11.0-16.0) % Plt Count 318 (160-400) X10*3/uL MPV 10.2 (9.4-12.3) fL Immature Gran % (Auto) 0.4 (0.0-0.4) % Neut % (Auto) 77.6 H (45-73) % Lymph % (Auto) 9.2 L (20-40) % [place] % (Auto) 11.2 H (2-11) % Eos % (Auto) 1.0 (0-4) % Baso % (Auto) 0.6 (0-2) % Lymph # (Auto) 0.7 L (1.2-4.9) X10*3/uL [place] # (Auto) 0.8 (0.1-1.2) X10*3/uL Eos # (Auto) 0.1 (0.0-0.4) X10*3/uL Baso # (Auto) 0.0 (0.0-0.2) X10*3/uL Abs Immat Gran (auto) 0.03 (0.00-0.03) X10*3/uL Absolute Neuts (auto) 5.6 (2.0-8.3) x10*3/uL Absolute Nucleated RBC 0.000 (0.0-0.012) X10*3/uL Nucleated RBC % (auto) 0.0 (0.0-0.2) /100WBC Sodium 138 (135-145) mmol/L Potassium 4.3 (3.3-5.1) mmol/L Chloride 97 (96-108) mmol/L Carbon Dioxide 26 (22-29) mmol/L Anion Gap 19 (12-20) BUN 93 H (9-16) mg/dL Creatinine 5.80 H* (0.5-1.4) mg/dL Estim Creat Clear Calc 7.6 Estimated GFR 7 Random Glucose 86 (60-115) mg/dL Calcium 12.8 H* (8.4-10.2) mg/dL Phosphorus 5.6 H (2.7-4.5) mg/dL Magnesium 2.6 (1.6-2.6) mg/dL Troponin I High Sens 13.5 (<3.5-17.0) ng/L Discharge Plan Discharge Clinical Impression: Hypercalcemia, Renal failure Patient Disposition: Admitted As Inpatient
[2022-01-02 21:05] LABS: COVID-19 Test Negative (Negative)
--- NOTE | 2022-01-02 21:24 | PHA.MEDREC ---
Pharmacy Consult ? Medication Reconciliation Pharmacy has completed the medication reconciliation.
[2022-01-02 22:07] VITALS: BP 155/72; PULSE 81; RESP 18; TEMP 36.4; O2SAT 95
--- NOTE | 2022-01-02 22:16 | PM.IMHP ---
History of Present Illness Date of Service: 01/02/22 Chief Complaint: Abnormal labs This is a 71-year-old female with pertinent history of CKD stage 5, granulomatosis with polyangiitis, essential hypertension who was sent to the emergency department by her PCP for evaluation of abnormal blood work. Patient was recently admitted and discharged on 12/28 with hypercalcemia and BILLIE, believed to be result of the Vit D intake excessive. Patient was treated with IV fluids and torsemide. With time and D supplement was discontinued. Patient had a repeat appointment with PCP for outpatient blood work. She was found to have elevated creatinine and elevated calcium and was asked to come to the ER for further evaluation. Patient denies taking any more vitamin-D supplements at home. She states that she maintained adequate oral fluid intake. Does endorse generalized weakness. Denies constipation, tingling numbness, fever, chills, chest discomfort, palpitations, shortness of breath, nausea, vomiting or urinary symptoms. In the emergency department, patient's creatinine was elevated at 5.94 and calcium was elevated. Received IV fluids and torsemide in the ER. 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 Hyperlipidemia Hypertension Lung nodules Surgical History H/O hernia repair History of partial hysterectomy Social History Alcohol intake: never Patient Tobacco Use Status: Never used Tobacco Years Smoked: Five years Use of substances other than those prescribed or required for medical reasons: No Advance Directives: No Advance Directives Information Provided: No Advance Directives Date on File: 06/13/20 service: No Current occupational status: retired Meds Allergies Allergy/AdvReac Type Severity Reaction Status Date / Time No Known Allergies Allergy Verified 12/26/21 14:37 Active Medications: Current Medications Acetaminophen (Acetaminophen 325 Mg Tablet) 650 mg PO Q6H PRN PRN Reason: Pain, Mild (Pain Scale 1-3) Enoxaparin Sodium (Enoxaparin Sodium 30 Mg/0.3 Ml Syringe) 30 mg SUBCUT Q24H [facility] Melatonin (Melatonin 3 Mg Tablet) 6 mg PO BEDTIME PRN PRN Reason: Insomnia Ondansetron HCl (Ondansetron Hcl 4 Mg/2 Ml Vial) 4 mg IVPUSH Q8H PRN PRN Reason: Nausea and Vomiting Pharmacy Consult (Consult Rx Perform Med Rec) 1 each MISCELLANE ONCE PRN PRN Reason: Consult order Sodium Chloride (0.9 % Sodium Chloride Flush 3 Ml Syringe) 3 ml IVFLUSH QSHIFT [facility] Home Medications Medication Instructions Recorded Confirmed Last Taken Type sevelamer carbonate 800 mg tablet 800 mg PO BIDWM 07/05/20 01/02/22 01/02/22 History torsemide 20 mg tablet 20 mg PO DAILY 08/09/20 01/02/22 01/02/22 History potassium chloride 20 mEq 20 meq PO DAILY 02/14/21 01/02/22 01/02/22 History tablet,extended release amlodipine 10 mg tablet 1 tab PO DAILY@1200 12/26/21 01/02/22 01/02/22 History carvedilol 6.25 mg tablet 1 tab PO BID@0800,1200 12/26/21 01/02/22 01/02/22 History ferrous sulfate 325 mg (65 mg 650 mg PO DAILY@1200 12/26/21 01/02/22 01/02/22 History iron) tablet ondansetron 8 mg disintegrating 8 mg PO BID PRN Nausea And Vomiting 12/26/21 01/02/22 12/26/21 History tablet prednisone 10 mg tablet 10 mg PO DAILY 12/26/21 01/02/22 01/02/22 History Physical Exam Vital Signs and Narrative: Vital Signs: Last Vital Signs Temp 97.6 F 01/02/22 22:07 Pulse 81 01/02/22 22:07 Resp 18 01/02/22 22:07 BP 155/72 H 01/02/22 22:07 Pulse Ox 95 01/02/22 22:07 O2 Del Method 01/02/22 22:07 BMI result Body Mass Index 19.5 Elderly female lying in bed in no distress Neck supple, no JVD Regular rate and rhythm, S1-S2 heard Regular breath sounds bilaterally, no wheezing or crackles appreciated Abdomen soft nontender, no guarding, no rigidity Patient is awake, alert and oriented to self, place, time and person ; no focal motor deficit Psych: Normal mood No pedal edema Results Labs CBC and Chem 7: 01/02/22 17:51 01/02/22 17:51 Labs: Laboratory Results - last 24 hr 01/02/22 01/02/22 01/02/22 17:51 17:51 17:51 MCV 89.4 MCH 28.8 MCHC 32.3 RDW 12.6 Plt Count 318 MPV 10.2 Immature Gran % (Auto) 0.4 Neut % (Auto) 77.6 H Lymph % (Auto) 9.2 L [place] % (Auto) 11.2 H Eos % (Auto) 1.0 Baso % (Auto) 0.6 Lymph # (Auto) 0.7 L [place] # (Auto) 0.8 Eos # (Auto) 0.1 Baso # (Auto) 0.0 Abs Immat Gran (auto) 0.03 Absolute Neuts (auto) 5.6 Absolute Nucleated RBC 0.000 Nucleated RBC % (auto) 0.0 Anion Gap 19 Estim Creat Clear Calc 7.6 Estimated GFR 7 Random Glucose 86 Calcium 12.8 H* Phosphorus 5.6 H Magnesium 2.6 Troponin I High Sens 13.5 COVID-19 (MAX) COVID-19 Clin Com 01/02/22 20:44 MCV MCH MCHC RDW Plt Count MPV Immature Gran % (Auto) Neut % (Auto) Lymph % (Auto) [place] % (Auto) Eos % (Auto) Baso % (Auto) Lymph # (Auto) [place] # (Auto) Eos # (Auto) Baso # (Auto) Abs Immat Gran (auto) Absolute Neuts (auto) Absolute Nucleated RBC Nucleated RBC % (auto) Anion Gap Estim Creat Clear Calc Estimated GFR Random Glucose Calcium Phosphorus Magnesium Troponin I High Sens COVID-19 (MAX) Negative COVID-19 Clin Com See Note Assessment and Plan (1) Acute on chronic renal failure: Status: Acute (2) Hypercalcemia: Status: Acute (3) 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 #. Acute kidney injury on chronic kidney disease stage 5, likely prerenal #. Hypercalcemia -patient received IV crystalloids and torsemide in the ER. Will continue fluid resuscitation and recheck calcium in a.m.. Also obtaining PTH. Consulted Nephrology. Monitor urine output and creatinine. Urine studies pending. Avoid nephrotoxins #. Granulomatosis with polyangiitis -continue home prednisone 10 mg daily #. Essential hypertension -on amlodipine and carvedilol DVT prophylaxis: Lovenox 30 mg daily Full code Diet: Low-sodium diet Patient will require two night minimum hospital stay for evaluation of hypercalcemia and acute kidney injury. Pending nephrology Quality Stroke Does the patient have a stroke diagnosis?: No VTE Prior VTE?: No VTE Risk Level:: Medical - moderate - high VTE Device Contraindication: Treatment Not Indicated VTE Drug Contraindication: N/A - Med Ordered
[2022-01-02] MEDS: Torsemide 20 MG TABLET PO (22:33)
[2022-01-02] MEDS: Enoxaparin Sodium 30 MG/0.3 ML SYRINGE SUBCUT (22:34)
[2022-01-02] MEDS: 0.9 % Sodium Chloride 1,000 ML 999 ML IV (22:39)
--- NOTE | 2022-01-02 22:50 | PC.NURSE ---
I assumed care of Akanksha upon her arrival to ED bed 9. She states she came to the ED after her PCP phoned her at home and requested she return for abnormally elevated calcium levels. Pt states she was recently admitted for the same. Also, she states that she has chronic renal insufficiency with a LUE fistula but has not began HD yet ( maybe in February ). She is alert, oriented x 4. She is ambulatory with steady gait. She is complaint-free: she denies KENYON, CP, SOb, nausea, vomiting, diarrhea. IV access obtained - positional #22 gauge placed in R hand, IVF's intiiated. Nursing report given to Alvina Rn and pt is prepared for transport to [facility]. Of note: she has been taking PO food and fluids (water) in ED without difficulty.
--- NOTE | 2022-01-03 01:06 | PC.NURSE ---
patient alert and oriented x4. able to make needs known. uses bedside commode, gait is steady.
[2022-01-03 01:19] VITALS: RESP 15; TEMP 36.7
[2022-01-03 02:44] LABS: Creatinine Urine 23.07 mg/dL
[2022-01-03] MEDS: 0.9 % Sodium Chloride 1,000 ML 100 ML IVCONT ×2 (02:53→08:03)
--- NOTE | 2022-01-03 05:45 | PC.NURSE ---
patient continues to sleep. chest rise and fall equal and unlabored. able to make needs known. will continue to round frequently
[2022-01-03 05:54] VITALS: BP 153/70; PULSE 76; RESP 15; TEMP 36.6; O2SAT 96
[2022-01-03 06:04] LABS: MANUAL DIFF FLAG NO
[2022-01-03 06:07] LABS: Basophils Percent Auto 0.6 % (0-2); Eosinophils Absolute Auto 0.2 X10*3/uL (0.0-0.4); Hematocrit 31.1 % (37.0-47.0); Hemoglobin 9.8 g/dl (12.0-16.0); Imm Gran Abs Auto 0.02 X10*3/uL (0.00-0.03); Imm Gran Pct Auto 0.3 % (0.0-0.4); Lymphocytes Absolute Auto 0.6 X10*3/uL (1.2-4.9); Lymphocytes Percent Auto 8.8 % (20-40); Mean Corpuscular HGB Conc 31.5 g/dl (31.0-35.0); Mean Corpuscular Hemoglobin 28.6 pg (27.0-33.0); Mean Corpuscular Volume 90.7 fL (80.0-98.0); Mean Platelet Volume 10.1 fL (9.4-12.3); Monocytes Absolute Auto 0.9 X10*3/uL (0.1-1.2); Monocytes Percent Auto 12.9 % (2-11); Neutrophils Absolute Auto 5.1 x10*3/uL (2.0-8.3); Neutrophils Percent Auto 74.4 % (45-73); Platelet Count 286 X10*3/uL (160-400); Red Blood Count 3.43 X10*6/uL (4.20-5.50); Red Cell Distribution Width 12.6 % (11.0-16.0); White Blood Count 6.9 X10*3/uL (4.8-10.8)
[2022-01-03 06:35] LABS: Phosphorus 4.9 mg/dL (2.7-4.5)
[2022-01-03 06:44] LABS: Anion Gap 14 (12-20); Blood Urea Nitrogen 82 mg/dL (9-16); Calcium 9.8 mg/dL (8.4-10.2); Carbon Dioxide 25 mmol/L (22-29); Chloride 104 mmol/L (96-108); Creatinine Clr Calc Pharmacy 8.6; Estimated Glomerular Filt Rate 8; Glucose Random 81 mg/dL (60-115); Sodium 140 mmol/L (135-145)
--- NOTE | 2022-01-03 07:15 | PC.NURSE ---
Assumed care of patient at this time
[2022-01-03] MEDS: predniSONE 10 MG TABLET PO (07:59)
[2022-01-03] MEDS: 0.9 % Sodium Chloride Flush 3 ML SYRINGE IVFLUSH ×3 (07:59→22:31)
[2022-01-03 08:00] VITALS: BP 142/51; PULSE 75; RESP 18; TEMP 36.6; O2SAT 95
--- NOTE | 2022-01-03 09:11 | PC.NURSE ---
Report given to ALICIA Kapoor assuming care of patient at this time.
--- NOTE | 2022-01-03 11:25 | PC.NURSE ---
pt taken to dialysis with tech
--- NOTE | 2022-01-03 11:26 | PC.NURSE ---
thelma varela [phone] per pt request prior to her disposition to dialysis, son was called and told to hold off visiting until later this evening, son did answer and understood. will notify dialysis
--- NOTE | 2022-01-03 11:28 | P.CONNP_ITS ---
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 Patient was recently admitted and discharged on 12/28 with hypercalcemia and BILLIE.? Patient was treated with IV fluids and torsemide.? Patient had a repeat appointment with PCP for outpatient blood work.? She was found to have elevated creatinine and elevated calcium and was asked to come to the ER for further evaluation.? She has generalized weakness, poor appetite, weight loss with ongoing nausea.? Denied shortness of breath or urinary symptoms. She was admitted for further management. 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 Hyperlipidemia Hypertension Lung nodules Surgical History Surgical History H/O hernia repair History of partial hysterectomy Social History Social History Alcohol intake: never Patient Tobacco Use Status: Never used Tobacco Years Smoked: Five years Use of substances other than those prescribed or required for medical reasons: No Advance Directives: No Advance Directives Information Provided: No Advance Directives Date on File: 06/13/20 service: No Current occupational status: retired Meds Allergies Allergy/AdvReac Type Severity Reaction Status Date / Time No Known Allergies Allergy Verified 12/26/21 14:37 Active Medications: Current Medications Acetaminophen (Acetaminophen 325 Mg Tablet) 650 mg PO Q6H PRN PRN Reason: Pain, Mild (Pain Scale 1-3) Enoxaparin Sodium (Enoxaparin Sodium 30 Mg/0.3 Ml Syringe) 30 mg SUBCUT Q24H [facility] Last Admin: 01/02/22 22:34 Dose: 30 mg Sodium Chloride (Ns) 1,000 mls @ 100 mls/hr IVCONT .Q10H [facility] Last Admin: 01/03/22 08:03 Dose: 100 mls/hr Lidocaine HCl (Lidocaine Hcl 1 % Mpf 2 Ml Vial) 0.5 ml SUBCUT ONCE ONE Stop: 01/04/22 06:30 Lidocaine HCl (Lidocaine Hcl 1 % Mpf 2 Ml Vial) 0.5 ml SUBCUT ONCE ONE Stop: 01/05/22 06:36 Melatonin (Melatonin 3 Mg Tablet) 6 mg PO BEDTIME PRN PRN Reason: Insomnia Ondansetron HCl (Ondansetron Hcl 4 Mg/2 Ml Vial) 4 mg IVPUSH Q8H PRN PRN Reason: Nausea and Vomiting Pharmacy Consult (Consult Rx Perform Med Rec) 1 each MISCELLANE ONCE PRN PRN Reason: Consult order Prednisone (Prednisone 10 Mg Tablet) 10 mg PO DAILY [facility] Last Admin: 01/03/22 07:59 Dose: 10 mg Sodium Chloride (0.9 % Sodium Chloride Flush 3 Ml Syringe) [facility] Last Admin: 01/03/22 07:59 Dose: 3 ml Home Medications Medication Instructions Recorded Confirmed Last Taken Type sevelamer carbonate 800 mg tablet 800 mg PO BIDWM 07/05/20 01/02/22 01/02/22 History torsemide 20 mg tablet 20 mg PO DAILY 08/09/20 01/02/22 01/02/22 History potassium chloride 20 mEq 20 meq PO DAILY 02/14/21 01/02/22 01/02/22 History tablet,extended release amlodipine 10 mg tablet 1 tab PO DAILY@1200 12/26/21 01/02/22 01/02/22 History carvedilol 6.25 mg tablet 1 tab PO BID@0800,1200 12/26/21 01/02/22 01/02/22 History ferrous sulfate 325 mg (65 mg 650 mg PO DAILY@1200 12/26/21 01/02/22 01/02/22 History iron) tablet ondansetron 8 mg disintegrating 8 mg PO BID PRN Nausea And Vomiting 12/26/21 01/02/22 12/26/21 History tablet prednisone 10 mg tablet 10 mg PO DAILY 12/26/21 01/02/22 01/02/22 History Physical Exam Vital Signs: Last Vital Signs Temp 97.8 F 01/03/22 08:00 Pulse 75 01/03/22 08:00 Resp 18 01/03/22 08:00 BP 142/51 H 01/03/22 08:00 Pulse Ox 95 01/03/22 08:00 O2 Del Method 01/03/22 08:00 BMI result Body Mass Index 19.5 Const General: no acute distress Orientation/consciousness: patient oriented x3 Eyes EOM: EOMs intact bilaterally Neck Neck: Yes supple Resp Auscultation: diminished lung sounds Cardio Rate: regular rate GI Palpation (GI): Soft to palpation Skin General skin exam: no rashes or lesions noted Neuro General: patient oriented x3 and moves all extremities Results Lab Results Result Diagrams: 01/03/22 06:02 01/03/22 06:02 Lab results: Chemistry 01/02/22 01/03/22 01/03/22 17:51 06:02 06:02 Sodium 138 140 Potassium 4.3 3.0 L D Carbon Dioxide 26 25 BUN 93 H 82 H Creatinine 5.80 H* 5.10 H* Calcium 12.8 H* 9.8 D Phosphorus 5.6 H 4.9 H Hematology 01/02/22 01/03/22 17:51 06:02 WBC 7.3 6.9 Hgb 11.1 L 9.8 L Plt Count 318 286 Urine Studies 01/03/22 02:21 Urine Creatinine 23.07 Assessment and Plan (1) Acute on chronic renal failure: Status: Acute Plan Advanced CKD @ baseline; Now Uremic. Has an AVF Shall start HD this admission; HD ordered for /Fri/Fri Has an AVF; Outpt HD spot [facility] clinical operations specialist is going to contact case managament with outpt HD details Could be D/[place] after HD on Sat if clinically well Procedures Date of Service Date of Service: 01/03/22
--- NOTE | 2022-01-03 11:32 | MHC.CM.PN ---
Addendum entered by Mally Soriano 01/03/22 12:34: CARLY ATTEMPTED TO MEET WITH PT TO PROVIDE HD SCHEDULE/LOCATION AND INFORMATION FOR [facility], HOWEVER PT WAS OFF UNIT SHE WILL NEED THIS INFORMATION PRIOR TO DC FRIDAY Addendum entered by Mally Soriano 01/03/22 11:42: CM RECEIVED A CALL FROM KENNEY AT [facility] SHE REPORTS THEY HAVE A CHAIR FOR PT STARTING FridayJANUARY 08 SHE SHOULD ARRIVE AT 1130 FOR 1145 CHAIR TIME PTS SCHEDULE WILL BE KENNEY REPORTS THEY WILL NEED PTS TREATMENT SHEETS, DEMOGRAPHICS, H&P, DC SUMMARY AND RELATED CLINICALS FAXED TO THEM ON FRIDAY AT [phone] PT WILL ALSO NEED A HEP B WITHIN 30 DAYS OF START SHE REPORTS IF PT HAS TRANSPORTATION ISSUES, SHE SHOULD CALL THE [facility] AT [phone] TO ARRANGE TRANSPORT FOR FRIDAY AND FRIDAY, SHE WILL ASSIST HER WITH ONGOING ARRANGEMENTS AFTER THAT KENNEY: [phone] Original Note: PT REPORTS SHE LIVES WITH HER SON AND IS INDEPENDENT WITH SELF CARE PT DENIES USE OF DME OR HOME SERVICES PT REPORTS SHE IS COVID VAX X 4 HCP ON FILE PCP: [facility] DELIVERED, COPY SENT TO [facility] CURRENT DC PLAN IS HOME WITH NO SERVICES SON TO TRANSPORT PER MD ROUNDS, PT WILL NEED AT LEAST 3 DAYS OF HD SHE IS NOT EXPECTED TO DC PRIOR TO FRIDAY
[2022-01-03 11:48] LABS: HBS Num1 2.47 mIU/mL (0-7.99); HBc Num1 0.14 S/CO (0.00-0.79); HBsAGNum1 0.39 S/CO (0.00-0.99); Hepatitis B Core Antibody Nonreactive (Nonreactive); Hepatitis B Surface Antigen Negative (Negative); ~HepC Num1 0.12 S/CO (0.00-0.79); ~Hepatitis B Surface Antibody NONREACTIVE (Nonreactive); ~Hepatitis C Antibody Nonreactive (Nonreactive)
[2022-01-03] MEDS: Lidocaine HCl 1 % MPF 2 ML VIAL 0.5 ML SUBCUT (12:30)
--- NOTE | 2022-01-03 13:59 | PC.NURSE ---
pt returned from dialysis and given lunch
--- NOTE | 2022-01-03 14:23 | P.PNIM_ITS ---
Subjective Subjective Date of Service: 01/03/22 Interval History: seen and examined this morning follow up for hypercalcemia and increasing renal function patient reports generalized weakness seen by nephrology - plan to start HD Review of Systems Review of Systems: Yes all other systems are reviewed and are negative Constitutional Constitutional: Denies chills and Denies fever(s) Cardiovascular Cardiovascular: Denies chest pain, Denies palpitations and Denies dyspnea Respiratory Respiratory: Denies cough and Denies dyspnea Gastrointestinal Gastrointestinal: Denies abdominal pain, Denies nausea and Denies vomiting Endocrine Endocrine: Denies palpitations Physical Exam Vital Signs: Vital Signs: Last Vital Signs Temp 97.8 F 01/03/22 08:00 Pulse 75 01/03/22 08:00 Resp 18 01/03/22 08:00 BP 142/51 H 01/03/22 08:00 Pulse Ox 95 01/03/22 08:00 O2 Del Method 01/03/22 08:00 BMI result Body Mass Index 19.5 Const: General: cooperative, comfortable, alert and awake Nutritional Appearance: thin Orientation/consciousness: patient oriented x3 Resp: Effort & Inspection: normal respiratory effort and able to speak in complete sentences Auscultation: clear to auscultation bilaterally Cardio: Rate: regular rate Heart sounds: S1 normal heart sound present and S2 normal heart sound present GI: Inspection: No distended Palpation (GI): Soft to palpation and nontender Neuro: General: patient oriented x3 and CN's II-XI intact bilaterally Extrem: Other: able to move all 4 extremities spontaneously General: Yes no pedal edema Objective Data Active Medications Acetaminophen (Acetaminophen 325 Mg Tablet) 650 mg PO Q6H PRN PRN Reason: Pain, Mild (Pain Scale 1-3) Enoxaparin Sodium (Enoxaparin Sodium 30 Mg/0.3 Ml Syringe) 30 mg SUBCUT Q24H [facility] Last Admin: 01/02/22 22:34 Dose: 30 mg Documented By: ETTA Lidocaine HCl (Lidocaine Hcl 1 % Mpf 2 Ml Vial) 0.5 ml SUBCUT ONCE ONE Stop: 01/04/22 06:30 Lidocaine HCl (Lidocaine Hcl 1 % Mpf 2 Ml Vial) 0.5 ml SUBCUT ONCE ONE Stop: 01/05/22 06:36 Melatonin (Melatonin 3 Mg Tablet) 6 mg PO BEDTIME PRN PRN Reason: Insomnia Ondansetron HCl (Ondansetron Hcl 4 Mg/2 Ml Vial) 4 mg IVPUSH Q8H PRN PRN Reason: Nausea and Vomiting Pharmacy Consult (Consult Rx Perform Med Rec) 1 each MISCELLANE ONCE PRN PRN Reason: Consult order Prednisone (Prednisone 10 Mg Tablet) 10 mg PO DAILY [facility] Last Admin: 01/03/22 07:59 Dose: 10 mg Documented By: RAMÍREZ Sodium Chloride (0.9 % Sodium Chloride Flush 3 Ml Syringe) 3 ml IVFLUSH QSHIFT [facility] Last Admin: 01/03/22 07:59 Dose: 3 ml Documented By: RAMÍREZ Labs CBC & Chem 7: 01/03/22 06:02 01/03/22 06:02 Labs: Laboratory Results - last 24 hr 01/02/22 01/02/22 01/02/22 17:51 17:51 17:51 MCV 89.4 MCH 28.8 MCHC 32.3 RDW 12.6 Plt Count 318 MPV 10.2 Immature Gran % (Auto) 0.4 Neut % (Auto) 77.6 H Lymph % (Auto) 9.[address] [place] % (Auto) 11.2 H Eos % (Auto) 1.0 Baso % (Auto) 0.6 Lymph # (Auto) 0.[address] # (Auto) 0.8 Eos # (Auto) 0.1 Baso # (Auto) 0.0 Abs Immat Gran (auto) 0.03 Absolute Neuts (auto) 5.6 Absolute Nucleated RBC 0.000 Nucleated RBC % (auto) 0.0 Anion Gap 19 Estim Creat Clear Calc 7.6 Estimated GFR 7 Random Glucose 86 Calcium 12.8 H* Phosphorus 5.6 H Magnesium 2.6 Troponin I High Sens 13.5 Ur Random Sodium Urine Creatinine COVID-19 (MAX) COVID-19 Clin Com Hep Bs Antigen Hep Bs Antibody Hep B Core Total Ab Hepatitis C Ab (EIA) 01/02/22 01/03/22 01/03/22 20:44 02:21 06:02 MCV 90.7 MCH 28.6 MCHC 31.5 RDW 12.6 Plt Count 286 MPV 10.1 Immature Gran % (Auto) 0.3 Neut % (Auto) 74.4 H Lymph % (Auto) 8.[address] % (Auto) 12.9 H Eos % (Auto) 3.0 Baso % (Auto) 0.6 Lymph # (Auto) 0.[address] [place] # (Auto) 0.9 Eos # (Auto) 0.2 Baso # (Auto) 0.0 Abs Immat Gran (auto) 0.02 Absolute Neuts (auto) 5.1 Absolute Nucleated RBC 0.000 Nucleated RBC % (auto) 0.0 Anion Gap Estim Creat Clear Calc Estimated GFR Random Glucose Calcium Phosphorus Magnesium Troponin I High Sens Ur Random Sodium 76.0 Urine Creatinine 23.07 COVID-19 (MAX) Negative COVID-19 Clin Com See Note Hep Bs Antigen Hep Bs Antibody Hep B Core Total Ab Hepatitis C Ab (EIA) 01/03/22 01/03/22 01/03/22 06:02 06:02 10:52 MCV MCH MCHC RDW Plt Count MPV Immature Gran % (Auto) Neut % (Auto) Lymph % (Auto) [place] % (Auto) Eos % (Auto) Baso % (Auto) Lymph # (Auto) [place] # (Auto) Eos # (Auto) Baso # (Auto) Abs Immat Gran (auto) Absolute Neuts (auto) Absolute Nucleated RBC Nucleated RBC % (auto) Anion Gap 14 Estim Creat Clear Calc 8.6 Estimated GFR 8 Random Glucose 81 Calcium 9.8 D Phosphorus 4.9 H Magnesium Troponin I High Sens Ur Random Sodium Urine Creatinine COVID-19 (MAX) COVID-19 Clin Com Hep Bs Antigen Negative Hep Bs Antibody NONREACTIVE Hep B Core Total Ab Nonreactive Hepatitis C Ab (EIA) Nonreactive Assessment and Plan (1) Hypercalcemia: Status: Acute (2) Acute on chronic renal failure: Status: Acute Plan This is a 71-year-old female with pertinent history of CKD stage 5, granulomatosis with polyangiitis, essential hypertension who was sent to the emergency department by her PCP for evaluation of abnormal blood work. BILLIE on chronic kidney disease stage 5 (secondary to ANCA vasculitis) progression of CKD. has fistula in place plan to start HD for uremia, scheduled for the next 3 days [facility] has chair starting Monday 01/08 - needs Hep B status checked Hypercalcemia received IVF and torsemide in the ER repeat Ca this am 9.8 nephro following follow calcium level Granulomatosis with polyangiitis -continue home prednisone 10 mg daily Essential hypertension -continue carvedilol -hold norvasc for now, follow bp, resume as BP allows DVT prophylaxis: Lovenox Full code attending - dr. zeng requires ongoing hospitalization stay for evaluation/management of hypercalcemia and acute kidney injury - need for new hemodialysis Quality Stroke Does the patient have a stroke diagnosis?: No VTE Prior VTE?: No VTE Risk Level:: Medical - moderate - high VTE Device Contraindication: Treatment Not Indicated VTE Drug Contraindication: N/A - Med Ordered
--- NOTE | 2022-01-03 17:26 | PC.NURSE ---
patient concerned that she hasnt had bp meds, jm texted provider to resolve
[2022-01-03 17:34] VITALS: BP 139/59; PULSE 82; RESP 18; TEMP 36.6; O2SAT 97
[2022-01-03 20:00] VITALS: BP 160/72; PULSE 94; RESP 16; TEMP 37; O2SAT 94
[2022-01-03 20:09] VITALS: BMI 19.5
[2022-01-03] MEDS: Docusate Sodium 100 MG CAPSULE PO (22:25)
[2022-01-03] MEDS: ondansetron HCL 4 MG/2 ML VIAL IVPUSH (22:25)
[2022-01-03] MEDS: Enoxaparin Sodium 30 MG/0.3 ML SYRINGE SUBCUT (22:27)
[2022-01-03 23:53] VITALS: BP 142/74; PULSE 80; RESP 18; TEMP 36.8; O2SAT 97
[2022-01-04 03:56] VITALS: BP 160/62; PULSE 80; RESP 18; TEMP 36.7; O2SAT 94
[2022-01-04 04:35] LABS: Hepatitis A Antibody IgM 0.09 Index (0-0.79); ~Hepatitis A Antibody IgM Nonreactive (Nonreactive)
[2022-01-04 07:26] VITALS: BP 143/67; PULSE 75; RESP 18; TEMP 36.9; O2SAT 93
[2022-01-04 07:26] LABS: Calcium 11.1 mg/dL (8.4-10.2)
[2022-01-04 09:17] LABS: Anion Gap 16 (12-20); Blood Urea Nitrogen 64 mg/dL (9-16); Carbon Dioxide 22 mmol/L (22-29); Chloride 104 mmol/L (96-108); Creatinine Clr Calc Pharmacy 9.6; Estimated Glomerular Filt Rate 9; Glucose Random 89 mg/dL (60-115); Potassium 3.8 mmol/L (3.3-5.1); Sodium 138 mmol/L (135-145)
--- NOTE | 2022-01-04 09:33 | P.PNNPD_ITS ---
Subjective Subjective This patient was seen during dialysis. Interval history: yesterday the access worked marginally infiltrated today so no treatment plan is to let the fistula rest and get angiogram and posssible PC as OP she can be discharged Physical Exam Vital Signs: Vital Signs: Last Vital Signs Temp 98.4 F 01/04/22 07:26 Pulse 75 01/04/22 07:26 Resp 18 01/04/22 07:26 BP 143/67 H 01/04/22 07:26 Pulse Ox 93 01/04/22 07:26 O2 Del Method 01/04/22 07:26 BMI result Body Mass Index 19.5 Const: General: cooperative, comfortable, no acute distress, alert and awake Nutritional Appearance: thin Orientation/consciousness: patient oriented x3 Eyes: EOM: EOMs intact bilaterally Neck: Neck: Yes supple Resp: Effort & Inspection: normal respiratory effort and able to speak in complete sentences Auscultation: clear to auscultation bilaterally and diminished lung sounds Cardio: Rate: regular rate Heart sounds: S1 normal heart sound present and S2 normal heart sound present GI: Inspection: No distended Palpation (GI): Soft to palpation and nontender Skin: General skin exam: no rashes or lesions noted Neuro: General: patient oriented x3, moves all extremities and CN's II-XI intact bilaterally Extrem: Other: able to move all 4 extremities spontaneously General: Yes no pedal edema Assessment & Plan Assessment and plan (1) Hypercalcemia: Status: Acute (2) Acute on chronic renal failure: Status: Acute Plan This is a 71-year-old female with pertinent history of CKD stage 5, granulomatosis with polyangiitis, essential hypertension who was sent to the emergency department by her PCP for evaluation of abnormal blood work. BILLIE on chronic kidney disease stage 5 (secondary to ANCA vasculitis) progression of CKD. has fistula in place plan to start HD for uremia, scheduled for the next 3 days [facility] has chair starting Monday 01/08 - needs Hep B status checked Hypercalcemia received IVF and torsemide in the ER repeat Ca this am 9.8 nephro following follow calcium level Granulomatosis with polyangiitis -continue home prednisone 10 mg daily Essential hypertension -continue carvedilol -hold norvasc for now, follow bp, resume as BP allows DVT prophylaxis: Lovenox Full code attending - dr. zeng requires ongoing hospitalization stay for evaluation/management of hypercalcemia and acute kidney injury - need for new hemodialysis Time Spent With Patient Time: Total time spent is greater than 50% in coordination of care (as documented) at patient's floor/unit and/or counseling patient: Procedures Date of Service Date of Service: 01/04/22
[2022-01-04] MEDS: carvediloL 6.25 MG TABLET PO (10:03)
[2022-01-04] MEDS: 0.9 % Sodium Chloride Flush 3 ML SYRINGE IVFLUSH (10:03)
[2022-01-04] MEDS: predniSONE 10 MG TABLET PO (10:03)
--- NOTE | 2022-01-04 10:14 | MHC.CLN ---
NUTRITION DIET-2 GRAM SODIUM. ADDED LOW PHOSPHORUS TO DIET ORDER DUE TO ELEVATED PHOS LABS AND RECEIVES HEMODIALYSIS.
[2022-01-04 11:29] VITALS: BP 136/64; PULSE 74; RESP 18; TEMP 36.9; O2SAT 97
--- NOTE | 2022-01-04 12:48 | P.DS_ITS ---
DS: Providers Provider Date of Service: 01/04/22 Date of admission: 01/02/22 22:12 Date of discharge: 01/04/22 Primary care physician: James Deleon DO Consults: 01/02/22 22:54 Consult to Nephrology Routine Consulting Provider: Ethan Tai Reason for consultation: BILLIE and hypercalcemia Has provider been notified: No Attending physician on discharge: Tad Villar Discharging clinician: Marci Whitaker DS: Diagnosis Discharge Diagnosis (1) Hypercalcemia: Status: Acute (2) Acute on chronic renal failure: Status: Acute DS: Summary Hospital Course Hospital Course: From H&P on day of admission This is a 71-year-old female with pertinent history of CKD stage 5, granulomatosis with polyangiitis, essential hypertension who was sent to the emergency department by her PCP for evaluation of abnormal blood work.? Patient was recently admitted and discharged on 12/28 with hype rcalcemia and BILLIE, believed to be result of the Vit D intake excessive.? Patient was treated with IV fluids and torsemide.? With time and D supplement was discontinued.? Patient had a repeat appointment with PCP for outpatient blood work.? She was found to have elevated creatinine and elevated calcium and was asked to come to the ER for further evaluation.? Patient denies taking any more vitamin-D supplements at home.? She states that she maintained adequate oral fluid intake.? Does endorse generalized weakness.? Denies constipation, tingling numbness, fever, chills, chest discomfort, palpitations, shortness of breath, nausea, vomiting or urinary symptoms. In the emergency department, patient's creatinine was elevated at 5.94 and calcium was elevated.? Received IV fluids and torsemide in the ER. BILLIE on chronic kidney disease stage 5 (secondary to ANCA vasculitis) progression of CKD. has fistula in place and HD was initiated. the first day access worked marginally. Today fistula was infiltrated and she did not receive hemodialysis. Per Nephrology the plan is for her to be discharged, let her fistula rest and get an angiogram and possible Port-A-Cath as outpatient. Hypercalcemia Calcium 11.1 on day of discharge. Recommend outpatient follow-up Time Spent with Patient Time attestation: Total time spent providing and/or coordinating discharge services: Discharge coordination time: Greater than 30 minutes Quality: Safe Use of Opioids Does Pt have an Active Cancer Diagnosis on the Problem List?: No Quality: Stroke Does the patient have a stroke diagnosis?: No Physical Exam Vital Signs: Vital Signs: Last Vital Signs Temp 98.5 F 01/04/22 11:29 Pulse 74 01/04/22 11:29 Resp 18 01/04/22 11:29 BP 136/64 01/04/22 11:29 Pulse Ox 97 01/04/22 11:29 O2 Del Method 01/04/22 11:29 BMI result Body Mass Index 19.5 Const: General: cooperative, comfortable, alert and awake Nutritional Appearance: thin Orientation/consciousness: patient oriented x3 Resp: Effort & Inspection: normal respiratory effort and able to speak in complete sentences Auscultation: clear to auscultation bilaterally Cardio: Rate: regular rate Heart sounds: S1 normal heart sound present and S2 normal heart sound present GI: Inspection: No distended Palpation (GI): Soft to palpation and nontender Neuro: General: patient oriented x3 and CN's II-XI intact bilaterally Extrem: Other: able to move all 4 extremities spontaneously; LUE fistula with thrill, with surrounding bruising General: Yes no pedal edema DS: Data Data Completed and Pending Completed studies during hospitalization [Text1]: Procedures Drainage of Left Lower Lung Lobe, Via Natural or Artificial Opening Endoscopic, Diagnostic (06/13/20) Excision of Left Kidney, Percutaneous Approach, Diagnostic (06/13/20) Excision of Left Lower Lobe Bronchus, Via Natural or Artificial Opening Endoscopic, Diagnostic (06/13/20) Excision of Left Upper Lobe Bronchus, Via Natural or Artificial Opening Endoscopic, Diagnostic (06/13/20) Extraction of Left Main Bronchus, Via Natural or Artificial Opening Endoscopic, Diagnostic (06/13/20) Extraction of Right Main Bronchus, Via Natural or Artificial Opening Endoscopic, Diagnostic (06/13/20) Insertion of Infusion Device into Inferior Vena Cava, Percutaneous Approach (06/13/20) Insertion of Infusion Device into Superior Vena Cava, Percutaneous Approach (06/13/20) Insertion of Tunneled Vascular Access Device into Chest Subcutaneous Tissue and Fascia, Percutaneous Approach (06/13/20) Introduction of Other Therapeutic Substance into Respiratory Tract, Via Natural or Artificial Opening Endoscopic (06/13/20) Performance of Urinary Filtration, Intermittent, Less than 6 Hours Per Day (0 06/13/20) Labs on day of discharge: Laboratory Results - last 24 hr 10/27/22 10/28/22 10:52 05:53 Sodium 138 Potassium 3.8 D Chloride 104 Carbon Dioxide 22 Anion Gap 16 BUN 64 H Creatinine 4.58 H* Estim Creat Clear Calc 9.6 Estimated GFR 9 Random Glucose 89 Calcium 11.1 H D Hepatitis A IgM Ab Nonreactive Discharge Plan Discharge Anticipated Discharge Date/Time: 01/04/22 12:43 Patient Disposition: Home, Self-Care Discharge Diagnosis: BILLIE on CKD hypercalcemia Referrals: Ethan Tai MD [Physician] - 1 Week James Deleon DO [Primary Care Provider] - 1 Week Discharge Medications: Continued carvedilol 6.25 mg tablet 1 tab PO BID@0800,1200 prednisone 10 mg Tablet 10 mg PO DAILY ondansetron 8 mg tablet,disintegrating 8 mg PO BID PRN (Reason: Nausea And Vomiting) amlodipine 10 mg tablet 1 tab PO DAILY@1200 ferrous sulfate 325 mg (65 mg iron) Tablet 650 mg PO DAILY@1200 sevelamer carbonate 800 mg tablet 800 mg PO BIDWM torsemide 20 mg tablet 20 mg PO DAILY potassium chloride 20 mEq tablet extended release 20 meq PO DAILY Hold Instructions: discuss need to continue with nephrology Discharge Orders: Discharge Order (Routine); Ordered 01/04/22 Ordered By: Marci Whitaker Activity on Discharge: As tolerated Stand Alone Forms: Patient Portal Discharge page Care Plan Goals: see below Health Concerns: progression of chronic kidney disease elevated calcium levels non functioning left AV fistula Plan of Treatment: Plan to follow up with nephrology, let fisula rest and consider access for hemodialysis as outpatient recommend outpatient follow up to follow calcium levels discuss need for ongoing potassium supplementation with nephrology Assessment: see discharge summary Discharge Date/Time: 01/04/22 14:01
--- NOTE | 2022-01-04 12:52 | MHC.CM.PN ---
PER NEPHRO NOTE, PTS FISTULA NOT WORKING AND SHE WILL NEED A PERMACATH PLACED PER NOTE, PLAN IS FOR PC PLACEMENT OUTPATIENT AND SUBSEQUENT START OF OP HD PT IS AWARE SHE WILL DC HOME TODAY WITH A PLAN TO F/U OUTPATIENT FAMILY TO TRANSPORT
[2022-01-04 12:55] LABS: Calcium (PTHI) 12.6 mg/dL (8.6-10.4); PTHI 27 pg/mL (16-77)
--- NOTE | 2022-01-07 13:35 | MHC.CM.PN ---
PTS DC SUMMARY, H&P, HEP B RESULTS, LABS AND NEPHROLOGY NOTES WERE FAXED TO [facility]
== END 2022-01-04 14:01 | disposition home or self-care (01) | DRG 682 ==
LOC: HO.ED 20:29 → HO.EDOVER 22:20 → HO.S3 01-03 17:58
PROVIDERS: Internal Medicine Nephrology; Admitting Provider Student in an Organized Health Care Education/Training Program; Emergency Provider Emergency Medicine Emergency Medical Services; PCP Family Medicine; Visit Provider Physician Assistant Medical
DX: I12.0 Hypertensive chronic kidney disease with stage 5 chronic kidney disease or end stage renal disease (principal); N18.6 End stage renal disease; N17.9 Acute kidney failure, unspecified; M31.31 Wegener's granulomatosis with renal involvement; I77.82 Antineutrophilic cytoplasmic antibody [ANCA] vasculitis; E83.52 Hypercalcemia; E78.5 Hyperlipidemia, unspecified; Z20.822 Contact with and (suspected) exposure to COVID-19; Z23 Encounter for immunization; Z99.2 Dependence on renal dialysis; Z79.52 Long term (current) use of systemic steroids; Z79.899 Other long term (current) drug therapy
CPT/HCPCS: 36415; 80048; 82310; 83735; 83970; 84100; 84300; 84484; 85025; 86704; 86706; 86709; 86803; 87340; 87635; 90686; 90935; 93005; 99285; J1650; J2405

== ENCOUNTER → 2022-07-24 13:38 | Outpatient (BNVA) | payer OTHER, SELFPAY | PROVIDERS: PCP Physician Assistant; Visit Provider Internal Medicine ==

== ENCOUNTER 2022-08-14 11:46 | Outpatient (REF) | payer MEDICARE, OTHER, SELFPAY ==
--- NOTE | ~2022-08-14 | MM_ITS ---
EXAMINATION: MM SCREENING DIGITAL BREAST TOMOSYNTHESIS, BILATERAL CLINICAL INFORMATION: Screening. Asymptomatic. The lifetime risk of breast cancer based on the Tyrer-Cuzick Model is 5%. COMPARISON: Mammography: 01/25/2021, 01/24/2020, 12/02/2018 TECHNIQUE: Digital breast tomosynthesis is performed in both the craniocaudal and mediolateral oblique views along with computer-aided detection (CAD). Synthesized 2D images are generated from the tomosynthesis. FINDINGS: The breasts are heterogeneously dense, which may obscure small masses (ACR BI-RADS breast composition Category c). The breasts are symmetrically slightly denser when compared with prior exams. There is no architectural abnormality or developing density. There are no significant masses, abnormal calcifications, or other abnormalities. There are scattered bilateral vascular and a few ductal secretory and round calcifications. The axilla and skin contours are unremarkable. MM/MM tomosynthesis screening BI IMPRESSION: No mammographic evidence of malignancy. ASSESSMENT: BI-RADS 2: Benign RECOMMENDATION: Routine annual mammography screening. This patient's information was entered into a reminder system with a target due date for their next mammogram.
== END 2022-08-14 11:47 | disposition home or self-care (01) ==
LOC: HO.MAMMO 11:46
PROVIDERS: PCP Physician Assistant; Visit Provider Physician Assistant
DX: Z12.31 Encounter for screening mammogram for malignant neoplasm of breast (principal)
CPT/HCPCS: 77063; 77067

== ENCOUNTER 2022-08-23 13:02 | Outpatient (REF) | payer MEDICARE, OTHER, SELFPAY ==
--- NOTE | ~2022-08-23 | CT_ITS ---
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 Axial MIP volume rendering provided. Sagittal and coronal reformatted images were obtained. This CT examination was performed using dose optimization techniques as appropriate, variously including the following: *Automated exposure control *Adjustment of mA and/or kV according to patient size (this includes techniques or standardized protocols for targeted exams where dose is matched to indication/reason for exam; i.e. extremities or head) *Use of iterative reconstruction technique DLP: 110 mGy-cm FINDINGS: FUNDS DEVELOPMENT DIRECTOR: LUNGS: There is significant interval decrease in size and number of pulmonary nodules or masses compared to June 2020 exam. There is linear scarring or subsegmental atelectasis in the left upper lobe adjacent to the fissure in area of previous 2 x 2.6 cm nodule for example axial image 232 series 5. There is a interval decrease in the mass in the posterior basal segment of the left lower lobe with residual 1.8 cm nodule for example axial image 474 series 5. There is adjacent scarring or chronic subsegmental atelectasis, focal bronchiectasis and bronchial wall thickening and mucus plugging in this region as well. There is a 1 cm irregular nodule at the right posterior lateral costophrenic angle and adjacent scarring or subsegmental atelectasis and focal bronchiectasis for example axial image 475 series 5 in the area of previous 3 cm nodule. There are scattered other areas of mild focal bronchiectasis and bronchial soft tissue opacification or mucus plugging in both lower lobes. The lungs are otherwise clear. All other previously identified pulmonary nodules have completely resolved.. MEDIASTINUM: Normal heart size. Small pericardial effusion. Tortuous thoracic aorta. No enlarged hilar or mediastinal lymph nodes. CORONARY ARTERY CALCIFICATION: Mild PLEURA: There is no pleural effusion. No pleural mass or thickening. AXILLA: No lymphadenopathy. UPPER ABDOMEN: Both kidneys are small. Question surgical clip or embolization device in the upper pole of the left kidney new from prior exam. Large duodenal diverticulum adjacent to the head of the pancreas. OSSEOUS STRUCTURES: Degenerative changes of the spine. CT/CT chest wo IV con IMPRESSION: Significant interval decrease in pulmonary masses and nodules from June 2020 with residual changes in both lower lobes. Fleischner guidelines were followed.
== END 2022-08-23 13:03 | disposition home or self-care (01) ==
LOC: HO.CT 13:02
PROVIDERS: PCP Physician Assistant; Visit Provider Internal Medicine
DX: M31.30 Wegener's granulomatosis without renal involvement (principal)
CPT/HCPCS: 71250

== ENCOUNTER 2023-01-01 13:49 | Outpatient (AMB) | payer MEDICARE, OTHER, SELFPAY ==
--- NOTE | 2023-01-01 14:03 | A.OFFVIS_ITS ---
Intake Vital Signs 01/01/23 14:05 Height 5 ft 6 in Weight 118 lb BMI 19.0 BP 102/60 Blood Pressure Location Lt brachial Position Sitting Pulse 79 Pulse Source Pulse Oximeter Pulse Oximetry (%) 99 Oxygen Delivery Method Room Air Intake Visit Reasons: kidney transplant: [facility] Intake Note: pt is here for follow up and states she is doing great, still on transplant list. Extension Service Supervisor Required: No Allergies No Known Allergies Allergy (Verified 01/01/23 14:21) Medication List - Last Reconciled 01/01/23 by Chuy Griffin MD B complex-vitamin C-folic acid 0.8 mg (Renal Vitamin) 1 tab PO DAILY carvedilol 1 tab PO BID@0800,1200 ferrous sulfate 650 mg PO DAILY@1200 lactobacillus combination no.9 (Adult 50 Plus Probiotic) 4,000 mmu cells PO DAILY prednisone 5 mg PO DAILY sevelamer carbonate 800 mg PO TID torsemide 20 mg PO DAILY vitamins A,C,M-efgg-zqokam 2,148 mcg-113 mg-45 mg-17.4mg (PreserVision AREDS) 2 tabs PO BID Do you need a note to return to daycare/school/sports/work: No HPI kidney transplant: [facility] HPI Details THIS 72 YEARS OLD VERY PLEASANT FEMALE IS HERE FOR FOLLOW-UP. SHE WAS DIAGNOSED TO HAVE ACUTE GRANULOMATOUS LUNG? DISEASE, ALONG WITH ACUTE GRANULOMATOUS NEPHRITIS, IN JUNE 2019. INITIALLY SHE HAD ACUTE RESPIRATORY DISTRESS, BUT SHE RESPONDED VERY WELL TO STEROID THERAPY. SHE IS BEING FOLLOWED BY THE RENAL SERVICE AND IS MAINTAINED ON PREDNISONE, NOW DOWN TO 5 mg A DAY. WITH ORAL STEROIDS HER LUNG DISEASE HAS RESOLVED ALMOST COMPLETELY. IN THE LAST 2 YEARS SHE HAS HAD NO ACUTE EXACERBATION OR WORSENING OF HER BREATHING, SHE HAS HAD NO ACUTE RESPIRATORY INFECTION. SHE HAS NEVER REQUIRED OXYGEN AFTER THE DISCHARGE FROM THE HOSPITAL. SHE DENIES COUGH OR GETTING SHORT OF BREATH ON HER USUAL PHYSICAL ACTIVITY. HOWEVER HER WALKING IS QUITE SLOW. 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 Hyperlipidemia Hypertension Surgical History H/O hernia repair History of partial hysterectomy Social History Household Members: Children Household Members Other:: SON Housing: House Do you presently have visiting nurse or other home services: No Alcohol intake: never Patient Tobacco Use Status: Never used Tobacco Years Smoked: Five years Advance Directives Date on File: 06/13/20 service: No Current occupational status: retired Review of Systems Const All systems reviewed & are unremarkable except as noted in HPI and below Eyes Reports no additional complaints ENT Reports no additional complaints Card Denies chest pain, Denies irregular heart rhythm and Denies leg edema Resp Reports as per HPI GI Reports no additional complaints Reports no additional complaints Musc Reports no additional complaints Skin/Breast Reports system reviewed and no additional complaints, except as documented Neuro Reports no additional complaints Psych Reports no additional complaints Physical Exam Vital Signs: Last Vital Signs Pulse 79 01/01/23 14:05 BP 102/60 01/01/23 14:05 Pulse Ox 99 01/01/23 14:05 Oxygen Delivery Method Room Air 01/01/23 14:05 BMI result Body Mass Index 19.0 Const General: healthy appearing, comfortable, no acute distress, alert and awake Orientation/consciousness: patient oriented x3 HEENT Head: Yes normal to inspection General nose exam: No nasal polyps present and No nasal discharge present Face and sinus: Yes sinuses nontender Mouth: oropharynx normal Throat: Yes posterior oropharynx normal Eyes General: appearance normal, both eyes and all related structures Neck Neck: Yes normal visual inspection, Yes no lymphadenopathy, Yes trachea midline and Yes no JVD Thyroid: Thyroid normal Chest Chest palpation & inspection: normal inspection of the chest, normal palpation of entire chest wall and no tenderness Resp Other: PERCUSSION NOTE RESONANT, HAS EQUAL BREATH SOUNDS ON BOTH SIDES. NO WHEEZES OR RHONCHI ARE HEARD. THERE ARE A FEW INSPIRATORY CRACKLES OVER THE RIGHT BASE. Cardio Palpation: normal PMI Rate: regular rate Rhythm: regular rhythm Heart sounds: no gallops and no murmurs Peripheral pulses: Peripheral pulses 2+ throughout GI Palpation (GI): Soft to palpation, nontender, No hepatosplenomegaly present and no masses Auscultation: normal bowel sounds Back/Spine/Pelvis Thoracic/Lumbar Spine: thoracic and lumbar spine normal to inspection Skin General skin exam: no rashes or lesions noted Neuro General: patient oriented x3 and no focal motor deficits Cranial nerves: Yes CN's II-XII intact bilaterally Extrem General: Yes normal to inspection, Yes no clubbing, cyanosis or edema and Yes no calf tenderness Psych Appearance: grossly normal and well kempt Speech and movement: Normal speech and movement present Results Reviewed Results Reviewed: CT SCAN OF LUNGS 08/23/22 Significant interval decrease in pulmonary masses and nodules from June 2020 with residual changes in both lower lobes ( RESIDUAL SCARRING , NODULARITY AND BRONCHIECTASIS ) Assessment & Plan Assessment & Plan (1) Anahy's granulomatosis: Comment: RESOLVED ALMOST COMPLETELY. SHE DOES NOT SEEM TO HAVE ANY RESIDUAL LUNG DISEASE. RESIDUAL CHANGES IN THE BASILAR AREAS, ON THE CT SCAN, CONSISTENT WITH ONLY MINIMAL FIBROSIS/ NODULARITY AND MINIMAL BRONCHIECTASIS. TX : CURRENTLY ON PREDNISONE 5 MG A DAY, FOR THE RENAL DISEASE WHICH IS BEING M ANAGED BY THE RENAL AND TRANSPLANT SERVICE. PULM. FUNCTION TEST 2020 WAS WNL, EXCEPT FOR DECREASED DLCO, 57 % NO SIGNIFICANT VQ. ABNORMALITY AT THIS TIME, AND SHE DOES NOT REQUIRE OXY GEN. BE SIDE PREDNISONE 5 MG A DAY WHICH IS FOR RENAL DISEASE, PATIENT DOES NOT NEED ANY MED FOR LUNGS. PATIENT DOES NOT NEED OXYGEN. * FROM PULMONARY POINT OF VIEW SHE HAS NO CONTRAINDICATION TO THE RENAL TRANSPLANT FOR WHICH SHE HAS BEEN WAITING . 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 NO TREATMENT NEEDED BUT WILL BE MONITORED CLOSELY. Code(s): R91.8 - Other nonspecific abnormal finding of lung field Coding Level of Care Code Est Pt Level 3 (21042) Diagnoses Anahy's granulomatosis M31.30 Lung nodules R91.8
[2023-01-01 14:05] VITALS: BP 102/60; PULSE 79; O2SAT 99; BMI 19.0
== END 2023-01-01 14:20 | disposition home or self-care (01) ==
PROVIDERS: PCP Physician Assistant; Visit Provider Internal Medicine
DX: M31.30 Wegener's granulomatosis without renal involvement (principal); R91.8 Other nonspecific abnormal finding of lung field
CPT/HCPCS: 99213

== ENCOUNTER → 2023-01-01 13:49 | Outpatient (BNVA) | payer OTHER, SELFPAY | PROVIDERS: PCP Physician Assistant; Visit Provider Internal Medicine ==

== ENCOUNTER 2023-02-10 10:47 | Outpatient (AMB) | payer MEDICARE, OTHER, SELFPAY ==
--- NOTE | 2023-02-10 10:48 | A.OFFVIS_ITS ---
Intake Intake Visit Reasons: recurrent UTI Intake Note: NEW Patient presents today to established treatment for Recurrent UTI: Meds- None Allergies to Antibiotic- No Known Allergies Blood Thinner- None Unable to void Director Of Special Education Required: No Accompanied by: Self / Same As Patient Allergies No Known Allergies Allergy (Verified 02/10/23 10:49) HPI HPI Comments History of Present Illness Details Akanksha is a 72-year-old female who presents today to the office to establish as a new patient for an evaluation of recurrent urinary tract infections. 02/10/2023? She is present today for an evaluation of recurrent urinary tract infections. 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 Patient states that she was started on dialysis 3 times a week and currently on dialysis 2 times a week for 3 ? hours. Patient states that she has had urinary tract infection few months prior to dialysis. Patient is currently on Prednisone and a diuretic. She states that she is getting up 4-5 times at night to urinate and urinates less often during the day time. She has a history of partial hysterectomy in 2004 for fibroids at which they did a bladder suspension. Plan: Follow-up in office cystoscopy. 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 Hyperlipidemia Hypertension Surgical History H/O hernia repair History of partial hysterectomy Social History Household Members: Children Household Members Other:: SON Housing: House Do you presently have visiting nurse or other home services: No Alcohol intake: never Patient Tobacco Use Status: Never used Tobacco Years Smoked: Five years Advance Directives Date on File: 06/13/20 service: No Current occupational status: retired Review of Systems Const All systems reviewed & are unremarkable except as noted in HPI and below Reports no additional complaints Eyes Reports no additional complaints ENT Reports no additional complaints Card Denies dyspnea Resp Denies cough and Denies dyspnea GI Reports no additional complaints Reports no additional complaints Musc Reports no additional complaints Skin/Breast Denies rash and Denies unusual bruising Neuro Reports no additional complaints Psych Reports no additional complaints Endo Reports no additional complaints [place]/Lymph Reports no additional complaints Aller/Immun Reports no additional complaints Physical Exam Const General: cooperative, healthy appearing and no acute distress Orientation/consciousness: patient oriented x3 HEENT Head: Yes normal to inspection, Yes normocephalic and Yes atraumatic Eyes Conjunctivae: conjunctivae normal Neck Neck: Yes normal visual inspection and Yes trachea midline Chest Chest palpation & inspection: normal inspection of the chest Resp Effort & Inspection: normal respiratory effort Cardio Rate: regular rate GI Inspection: Yes normal to inspection Skin General skin exam: no rashes or lesions noted Neuro General: patient oriented x3 Extrem General: No edema Psych Appearance: grossly normal Assessment & Plan Assessment & Plan (1) Dependence on renal dialysis: Code(s): Z99.2 - Dependence on renal dialysis (2) Vasculitis: Code(s): I77.6 - Arteritis, unspecified (3) Recurrent UTI: Code(s): N39.0 - Urinary tract infection, site not specified Plan Follow-up in office cystoscopy. Orders: Orders US renal BI 02/10/23 Z99.2 - Dependence on renal dialysis, N39.0 - Urinary tract infection, site not specified, I77.6 - Arteritis, unspecified AMB Urinalysis Automated 02/10/23 Z13.9 - Encounter for screening, unspecified Patient Instructions: The patient had an opportunity to ask questions regarding treatment plan. All questions were answered. Imaging, Laboratory studies and physical exam results were discussed and reviewed in detail. No major barriers to understanding were identified. The patient expressed understanding and agreement with the above treatment plan. The patient is aware they should contact our office by phone for worsening of their current condition or the appearance of new symptoms. Compliance is encouraged with any medications and followup testing that is ordered. It is a privilege to be allowed the opportunity to participate in the urologic care of your patient. If you have any questions or concerns regarding treatment for the above conditions please do not hesitate to contact me. The office telephone contact is [phone]. This note is constructed in part using voice recognition software. While every effort has been made to ensure accuracy subsystems engineer errors may have been included. Yours sincerely, Robel Wagoner MD Coding Level of Care Code New Pt Level 4 (52950) Diagnoses Dependence on renal dialysis Z99.2 Vasculitis I77.6 Recurrent UTI N39.0
== END 2023-02-10 11:24 | disposition home or self-care (01) ==
PROVIDERS: PCP Physician Assistant; Visit Provider Urology
DX: Z13.9 Encounter for screening, unspecified (principal)
CPT/HCPCS: 99204

== ENCOUNTER → 2023-02-10 10:47 | Outpatient (BNVA) | payer MEDICARE, OTHER, SELFPAY | PROVIDERS: PCP Physician Assistant; Visit Provider Urology | DX: N39.0 Urinary tract infection, site not specified (principal); I77.6 Arteritis, unspecified; N18.6 End stage renal disease; Z99.2 Dependence on renal dialysis | CPT/HCPCS: 81003; 99202 ==

== ENCOUNTER 2023-03-26 08:16 | Outpatient (AMB) | payer MEDICARE, OTHER, SELFPAY ==
--- NOTE | 2023-03-26 08:32 | A.OFFVIS_ITS ---
Intake Intake Visit Reasons: cysto/US Intake Note: Patient presents today for a CYSTOSCOPY Procedure: Meds: None Allergies to Antibiotic: No Known Allergies Blood Thinner: None Urinalysis test cleared for Cysto Disposable Uro-G Cystoscope Cannula: Lot: [id number] Exp: 07/17/2024 [employer] [facility] Required: No Accompanied by: Self / Same As Patient Allergies No Known Allergies Allergy (Verified 03/26/23 08:37) Medication List - Last Reconciled 03/31/23 by Robel Wagoner MD B complex-vitamin C-folic acid 0.8 mg (Renal Vitamin) 1 tab PO DAILY carvedilol 1 tab PO BID@0800,1200 cephalexin 250 mg PO DAILY 30 days estradiol 0.01%(0.1mg/gram) (Estrace) 0.5 grams vaginal .qhs ferrous sulfate 650 mg PO DAILY@1200 lactobacillus combination no.9 (Adult 50 Plus Probiotic) 4,000 mmu cells PO DAILY prednisone 5 mg PO DAILY sevelamer carbonate 800 mg PO TID torsemide 20 mg PO DAILY vitamins A,C,V-fpbd-zqaida 2,148 mcg-113 mg-45 mg-17.4mg (PreserVision AREDS) 2 tabs PO BID HPI HPI Comments History of Present Illness Details Akanksha is a 72-year-old female who presents today to the office for follow up evaluation of recurrent urinary tract infections. 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 Review of chart: 02/10/2023? She is present today for an evaluation of recurrent urinary tract infections. 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 Patient states that she was started on dialysis 3 times a week and currently on dialysis 2 times a week for 3 ? hours. Patient states that she has had urinary tract infection few months prior to dialysis. Patient is currently on Prednisone and a diuretic. She states that she is getting up 4-5 times at night to urinate and urinates less often during the day time. She has a history of partial hysterectomy in 2004 for fibroids at which they did a bladder suspension. 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 Information consent for procedure given to the patient. Discussed technical aspects, risks, benefits and alternatives in full. Addressed all of the patient's questions and concerns regarding the procedure. The patient demonstrated knowledge and understanding. They wish to proceed with this procedure. Preparation The patient was prepped in the usual manner. A health screener was present and in the room. Genitalia was prepped with betadine solution in a sterile manner. Lidocaine Jelly 2% was placed into the urethra and 16Fr flexible Olympus cystoscope was inserted into the meatus after adequate lubrication. Procedure Time out per protocol performed. Bladder Inspection Bladder Inspection: The bladder was inspected in its entirety with utilization retroflexion displaying: Tumor(s): typical appearance of papillary lesion not visualized, erythematous changes noted. Will repeat cysto in 2 months Trabeculation: N/A Mucosal Erthema: present Orifices: normal shape and position Urethra: normal Cystoscopy findings: mutifocal erythematous changes suggestive of cystitis [id number] DISPOSABLE SCOPE URO-G FLEXIBLE SCOPE Procedure code (CPT) selection complete Office Meds lidocaine HCl 2 % mucosal jelly in applicator Performing Provider: Robel Wagoner MD Performing Location: [facility] Administered by: Jessica Bear RN on 03/26/23 08:34 Dose Route Admin Location Dispensed Lot Number Expiration Date NDC Flame Channeler 10 mL intra-urethral 20 mL naproxen 500 mg tablet Performing Provider: Robel Wagoner MD Performing Location: [facility] Administered by: Jessica Bear RN on 03/26/23 08:34 Dose Route Admin Location Dispensed Lot Number Expiration Date NDC Flame Channeler 500 mg PO 1 tab ciprofloxacin HCl 500 mg tablet Performing Provider: Robel Wagoner MD Performing Location: [facility] Administered by: Jessica Bear RN on 03/26/23 08:34 Dose Route Admin Location Dispensed Lot Number Expiration Date NDC Flame Channeler 500 mg PO 1 tab Assessment & Plan Assessment & Plan (1) Dependence on renal dialysis: Code(s): Z99.2 - Dependence on renal dialysis (2) Vasculitis: Code(s): I77.6 - Arteritis, unspecified (3) Recurrent UTI: Code(s): N39.0 - Urinary tract infection, site not specified Plan Urine for cytology Keflex 250 mg daily - estrace cream repeat cysto in 2 months Orders: Orders Urine Cytology 03/26/23 N39.0 - Urinary tract infection, site not specified AMB Cystoscopy 03/26/23 N39.0 - Urinary tract infection, site not specified Medications: New cephalexin 250 mg PO DAILY 30 caps 5RF 30 days estradiol 0.01%(0.1mg/gram) (Estrace) apply dime sized amount with fingertip to vagina and urethra every night at bedtime 0.5 grams vaginal .qhs 42.5 grams 3RF Patient Instructions: The patient had an opportunity to ask questions regarding treatment plan. All questions were answered. Imaging, Laboratory studies and physical exam results were discussed and reviewed in detail. No major barriers to understanding were identified. The patient expressed understanding and agreement with the above treatment plan. The patient is aware they should contact our office by phone for worsening of their current condition or the appearance of new symptoms. Compliance is e ncouraged with any medications and followup testing that is ordered. It is a privilege to be allowed the opportunity to participate in the urologic care of your patient. If you have any questions or concerns regarding treatment for the above conditions please do not hesitate to contact me. The office telephone contact is [phone]. This note is constructed in part using voice recognition software. While every effort has been made to ensure accuracy meeting facilitator errors may have been included. Yours sincerely, Robel Wagoner MD Coding Level of Care Code Est Pt Level 4 (35697) Diagnoses Dependence on renal dialysis Z99.2 Vasculitis I77.6 Recurrent UTI N39.0 CPT Codes Cystoscopy - CPT: [id number] ([id number])
== END 2023-03-26 09:13 | disposition home or self-care (01) ==
PROVIDERS: PCP Physician Assistant; Visit Provider Urology
DX: Z99.2 Dependence on renal dialysis (principal); I77.6 Arteritis, unspecified; N39.0 Urinary tract infection, site not specified
CPT/HCPCS: 52000; 99214

== ENCOUNTER 2023-03-26 08:16 | Outpatient (REF) | payer MEDICARE, OTHER, SELFPAY ==
[2023-03-26 16:52] LABS: Urine Cytology See Pathology rpt
== END 2023-03-26 08:17 | disposition home or self-care (01) ==
LOC: HO.LAB 08:16
PROVIDERS: PCP Physician Assistant; Visit Provider Urology
DX: N39.0 Urinary tract infection, site not specified (principal)
CPT/HCPCS: 52000; 88112; 99212

== ENCOUNTER 2023-05-26 13:25 | Outpatient (AMB) | payer MEDICARE, OTHER, SELFPAY ==
--- NOTE | 2023-05-26 13:41 | A.OFFVIS_ITS ---
Intake Intake Visit Reasons: cysto Intake Note: Patient presents today for cystoscopy Meds: Estradiol Allergies to Antibiotic: No Known Allergies Blood Thinner: None Urinalysis test clear for Cysto? No urine was provided in today's visit Disposable Uro-G Cystoscope Cannula: Lot: [id number] Exp: 01/02/2026 Eligibility And Occupancy Interviewer Required: No Accompanied by: Self / Same As Patient Allergies No Known Allergies Allergy (Verified 05/26/23 13:45) Medication List - Last Reconciled 05/26/23 by Robel Wagoner MD B complex-vitamin C-folic acid 0.8 mg (Renal Vitamin) 1 tab PO DAILY carvedilol 1 tab PO BID@0800,1200 estradiol 0.01%(0.1mg/gram) (Estrace) 0.5 grams vaginal .qhs ferrous sulfate 650 mg PO DAILY@1200 lactobacillus combination no.9 (Adult 50 Plus Probiotic) 4,000 mmu cells PO DAILY prednisone 5 mg PO DAILY sevelamer carbonate 800 mg PO TID torsemide 20 mg PO DAILY vitamins A,C,U-vsqa-dmpwtk 2,148 mcg-113 mg-45 mg-17.4mg (PreserVision AREDS) 2 tabs PO BID HPI HPI Comments History of Present Illness Details 05/26/2023-- Akanksha is a 72-year-old fema le who presents today to the office for follow up evaluation of recurrent urinary tract infections and repeat office cystoscopy. Cystoscopy was done on 03/26/2023 which noted multifocal erythematous changes consistent with cystitis. The patient was placed on a 30 day suppressive course of antibiotics, Keflex 250 mg daily. She states she is doing wall she gets hemodialysis twice a day week, denies dysuria or incontinence. 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 Office cystoscopy: Findings bladder mucosa no suspicious bladder lesions, cystitis changes resolved. Plan follow-up in 6 months. Patient will call for any UTI symptoms and we will get a urine culture checked at that time. Review of chart: 03/26/23-- here for cysto Cystoscopy findings: mutifocal erythematous changes suggestive of cystitis, will place on antibiotic therapy and repeat cystoscopy in 2 months. Urine for cytology, Keflex 250 mg daily, estrace cream. 02/10/2023? She is present today for an evaluation of recurrent urinary tract infections. 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 Patient states that she was started on dialysis 3 times a week and currently on dialysis 2 times a week for 3 ? hours. Patient states that she has had urinary tract infection few months prior to dialysis. Patient is currently on Prednisone and a diuretic. She states that she is getting up 4-5 times at night to urinate and urinates less often during the day time. She has a history of partial hysterectomy in 2004 for fibroids at which she states they did a bladder suspension. 05/26/23--Plan Continue Estrace cream. Follow-up 6 months. 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 Hyperlipidemia Hypertension Surgical History H/O hernia repair History of partial hysterectomy Social History Household Members: Children Household Members Other:: SON Housing: House Do you presently have visiting nurse or other home services: No Alcohol intake: never Patient Tobacco Use Status: Never used Tobacco Years Smoked: Five years Advance Directives Date on File: 06/13/20 service: No Current occupational status: retired Review of Systems Const All systems reviewed & are unremarkable except as noted in HPI and below Reports no additional complaints Eyes Reports no additional complaints ENT Reports no additional complaints Card Denies dyspnea Resp Denies cough and Denies dyspnea GI Reports no additional complaints Reports no additional complaints Musc Reports no additional complaints Skin/Breast Denies rash and Denies unusual bruising Neuro Reports no additional complaints Psych Reports no additional complaints Endo Reports no additional complaints [place]/Lymph Reports no additional complaints Aller/Immun Reports no additional complaints Office Procedures Cystoscopy Consent Discussed risk and benefit or proposed procedure with the patient. Information consent for procedure given to the patient. Discussed technical aspects, risks, benefits and alternatives in full. Addressed all of the patient's questions and concerns regarding the procedure. The patient demonstrated knowledge and understanding. They wish to proceed with this procedure. Preparation The patient was prepped in the usual manner. A production posting clerk was present and in the room. Genitalia was prepped with betadine solution in a sterile manner. Lidocaine Jelly 2% was placed into the urethra and 16Fr flexible Olympus cystoscope was inserted into the meatus after adequate lubrication. Procedure Time out per protocol performed. Bladder Inspection Bladder Inspection: The bladder was inspected in its entirety with utilization retroflexion display ing: Tumor(s): None visualized Trabeculation: Not applicable Mucosal Erthema: Erythematous changes resolved Orifices: normal shape and position Urethra: normal Cystoscopy findings: no suspicious bladder lesions visualized [id number] DISPOSABLE SCOPE URO-G FLEXIBLE SCOPE Procedure code (CPT) selection complete Office Meds lidocaine HCl 2 % mucosal jelly in applicator Performing Provider: Robel Wagoner MD Performing [facility] Administered by: Blade Silva LPN on 05/26/23 14:17 Dose Route Admin Location Dispensed Lot Number Expiration Date [facility] [employer] [place] 10 mL intra-urethral 20 mL naproxen 500 mg tablet Performing Provider: Robel Wagoner MD Performing Location: [facility] Urology [facility] Administered by: Blade Silva LPN on 05/26/23 14:17 Dose Route Admin Location Dispensed Lot Number Expiration Date [facility] [employer] [place] 500 mg PO 1 tab ciprofloxacin HCl 500 mg tablet Performing Provider: Robel Wagoner MD Performing Location: [facility] Administered by: Blade Silva LPN on 05/26/23 14:17 Dose Route Admin Location Dispensed Lot Number Expiration Date [place] [employer] [place] 500 mg PO 1 tab Results Reviewed Results Reviewed: Collected: 03/26/23 Location: LAB Received: 03/27/23 Diagnosis Urine: Few atypical urothelial cells. COMMENT: Examination of a monolayer preparation slide shows benign squamous cells, scattered benign urothelial cells, few columnar cells, and few groups of urothelial cells with moderately increased nuclear:cytoplasmic ratios, meeting the criteria for atypical urothelial cells. Scattered red blood cells, inflammatory cells, and lubricant are also noted. Assessment & Plan Assessment & Plan (1) Dependence on renal dialysis: Code(s): Z99.2 - Dependence on renal dialysis (2) Vasculitis: Code(s): I77.6 - Arteritis, unspecified (3) Recurrent UTI: Code(s): N39.0 - Urinary tract infection, site not specified Plan Continue estrace cream Follow-up in 6 months Orders: Orders AMB Cystoscopy Today N39.0 - Urinary tract infection, site not specified Coding Level of Care Code Procedure Only Diagnoses Dependence on renal dialysis Z99.2 Vasculitis I77.6 Recurrent UTI N39.0 CPT Codes Cystoscopy - CPT: 39689-[id number] ([id number])
== END 2023-05-26 14:34 | disposition home or self-care (01) ==
PROVIDERS: PCP Physician Assistant; Visit Provider Urology
DX: N39.0 Urinary tract infection, site not specified (principal); I77.6 Arteritis, unspecified; Z99.2 Dependence on renal dialysis
CPT/HCPCS: 52000

== ENCOUNTER → 2023-05-26 13:25 | Outpatient (BNVA) | payer MEDICARE, OTHER, SELFPAY | PROVIDERS: PCP Physician Assistant; Visit Provider Urology | DX: N39.0 Urinary tract infection, site not specified (principal); Z99.2 Dependence on renal dialysis; I77.6 Arteritis, unspecified | CPT/HCPCS: 52000 ==

== ENCOUNTER 2023-07-07 09:30 | Outpatient (REF) | payer MEDICARE, OTHER, SELFPAY ==
[2023-07-07 10:50] LABS: Appearance Urine Turbid; Color Urine Yellow; Glucose Urine UA Negative (Negative); Leukocyte Esterase Urine Large (3+) (Negative); Nitrite Urine Positive (Negative); UMIC TRIGGER UA YES; Urine Blood Moderate (2+) (Negative); Urine Ketones Negative (Negative); Urine Protein 100 (2+) mg/dL (Neg-Trace)
[2023-07-07 12:39] LABS: Bacteria Urine 4+ (None Seen); Hyaline Casts Urine 0-2 /LPF (0-2); RBC Urine 0-2 /HPF (0-2); Renal Epithelial Cells Urine Present; Squamous Epithelial Cell Urine 0-2 /HPF (0-2); Transitional Epi Cells Urine Present; WBC Urine >50 /HPF (0-5)
== END 2023-07-07 09:31 | disposition home or self-care (01) ==
LOC: HO.LAB 09:30
PROVIDERS: PCP Physician Assistant; Visit Provider Urology
DX: N39.0 Urinary tract infection, site not specified (principal)
CPT/HCPCS: 81001; 87086; 87088; 87186

== ENCOUNTER 2023-08-20 11:49 | Outpatient (REF) | payer MEDICARE, OTHER, SELFPAY | END 2023-08-20 11:50 | disposition home or self-care (01) | LOC: HO.MAMMO 11:49 | PROVIDERS: PCP Physician Assistant; Visit Provider Physician Assistant | DX: Z12.31 Encounter for screening mammogram for malignant neoplasm of breast (principal) | CPT/HCPCS: 77063; 77067 ==

== ENCOUNTER → 2023-08-20 12:00 | Outpatient (BNV) | payer MEDICARE, OTHER, SELFPAY | PROVIDERS: PCP Physician Assistant; Visit Provider Radiology Diagnostic Radiology | DX: Z12.31 Encounter for screening mammogram for malignant neoplasm of breast (principal) | CPT/HCPCS: 77063; 77067 ==

== ENCOUNTER 2023-11-27 13:06 | Outpatient (AMB) | payer MEDICARE, OTHER, SELFPAY ==
--- NOTE | 2023-11-27 13:07 | A.OFFVIS_ITS ---
Intake Visit Reasons: 6m follow up Intake Note: Patient presents today for 6m f/u Meds: Estradiol Allergies to Antibiotic: No Known Allergies Blood Thinner: None today's pvr: 0ml's Data Warehouse Manager Required: No Accompanied by: Self / Same As Patient Allergies No Known Allergies Allergy (Verified 11/27/23 13:10) HPI Comments Details: 11/27/23--Akanksha is a 73 year old female ESRD, secondary to vasculitis, immunosuppressed, followed for recurrent UTIs. Prior office cystoscopy consistent with cystitis. The patient was last seen in May and states that she had 1 urinary tract infection in July. She continues to urinate during the day she has dialysis twice a week. Will check renal ultrasound. Follow-up 1 year. Review of chart: 05/26/2023-- Akanksha is a 72-year-old female who presents today to the office for follow up evaluation of recurrent urinary tract infections and repeat office cystoscopy. Cystoscopy was done on 03/26/2023 which noted multifocal erythematous changes consistent with cystitis. The patient was placed on a 30 day suppressive course of antibiotics, Keflex 250 mg daily. She states she is doing wall she gets hemodialysis twice a day week, denies dysuria or incontinence. 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 I have reviewed urine cytology results atypical cells noted a nearly inflammatory in nature. Office cystoscopy: Findings bladder mucosa no suspicious bladder lesions, cystitis changes resolved. Plan follow-up in 6 months. Patient will call for any UTI symptoms and we will get a urine culture checked at that time. 03/26/23-- here for cysto Cystoscopy findings: mutifocal erythematous changes suggestive of cystitis, will place on antibiotic therapy and repeat cystoscopy in 2 months. Urine for cytology, Keflex 250 mg daily, estrace cream. 02/10/2023? She is present today for an evaluation of recurrent urinary tract infections. 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 Patient states that she was started on dialysis 3 times a week and currently on dialysis 2 times a week for 3 ? hours. Patient states that she has had urinary tract infection few months prior to dialysis. Patient is currently on Prednisone and a diuretic. She states that she is getting up 4-5 times at night to urinate and urinates less often during the day time. She has a history of partial hysterectomy in 2004 for fibroids at which she states they did a bladder suspension. 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 Hyperlipidemia Hypertension Surgical History H/O hernia repair History of partial hysterectomy Social History Household Members: Children Household Members Other:: SON Housing: House Do you presently have visiting nurse or other home services: No Alcohol intake: never Patient Tobacco Use Status: Never used Tobacco Years Smoked: Five years Advance Directives Date on File: 06/13/20 service: No Current occupational status: retired Review of Systems Const All systems reviewed & are unremarkable except as noted in HPI and below Reports no additional complaints Eyes Reports no additional complaints ENT Reports no additional complaints Card Reports no additional complaints Resp Reports no additional complaints GI Reports no additional complaints Reports as per HPI Musc Reports no additional complaints Skin/Breast Reports system reviewed and no additional complaints, except as documented Neuro Reports no additional complaints Psych Reports no additional complaints Endo Reports no additional complaints Kenton/Lymph Reports no additional complaints Aller/Immun Reports no additional complaints Office Procedures Post Void Residual Post Residual Void Post Void Residual (PVR): 0 [id number] Void Residual by ultrasound Assessment & Plan Assessment & Plan (1) ESRD (end stage renal disease): Code(s): N18.6 - End stage renal disease Category: Medical (2) History of recurrent UTIs: Code(s): Z87.440 - Personal history of urinary (tract) infections Category: Medical (3) Chronic cystitis: Code(s): N30.20 - Other chronic cystitis without hematuria Category: Medical (4) Immunosuppression due to drug therapy: Code(s): D84.821 - Immunodeficiency due to drugs; Z79.899 - Other penitentiary (current) drug therapy Category: Medical Plan renal ultrasound. Follow-up 1 year. Orders: Orders AMB Urinalysis Automated Today Z13.9 - Encounter for screening, unspecified US renal BI Today N18.6 - End stage renal disease, Z87.440 - Personal history of urinary (tract) infections Patient Instructions: The patient had an opportunity to ask questions regarding treatment plan. The patient expressed understanding and agreement with the above treatment plan. The patient is aware they should contact our office by phone for worsening of their current condition or the appearance of new symptoms. Compliance is encouraged with any medications and followup testing that is ordered. It is a privilege to be allowed the opportunity to participate in the urologic care of your patient. If you have any questions or concerns regarding treatment for the above conditions please do not hesitate to contact me. The office telephone contact is [phone]. This note is constructed in part using voice recognition software. While every effort has been made to ensure accuracy sonography technician errors may have been included. Yours sincerely, Robel Wagoner MD Coding Level of Care Code Est Pt Level 4 (54250) Diagnoses ESRD (end stage renal disease) N18.6 History of recurrent UTIs Z87.440 Chronic cystitis N30.20 Immunosuppression due to drug therapy D84.821; Z79.899 CPT Codes Post Residual Void - PVR CPT Code: 58310-Qgbt Void Residual by ultrasound ([id number])
== END 2023-11-27 13:45 | disposition home or self-care (01) ==
PROVIDERS: PCP Physician Assistant; Visit Provider Urology
DX: N18.6 End stage renal disease (principal); Z87.440 Personal history of urinary (tract) infections; N30.20 Other chronic cystitis without hematuria; D84.821 Immunodeficiency due to drugs; Z79.899 Other long term (current) drug therapy
CPT/HCPCS: 99214

== ENCOUNTER → 2023-11-27 13:06 | Outpatient (BNVA) | payer MEDICARE, OTHER, SELFPAY | PROVIDERS: PCP Physician Assistant; Visit Provider Urology | DX: N18.6 End stage renal disease (principal); N30.20 Other chronic cystitis without hematuria; D84.821 Immunodeficiency due to drugs; Z87.440 Personal history of urinary (tract) infections; Z79.899 Other long term (current) drug therapy | CPT/HCPCS: 51798; 99212 ==

== ENCOUNTER 2023-12-05 11:23 | Outpatient (REF) | payer MEDICARE, OTHER, SELFPAY ==
--- NOTE | ~2023-12-05 | US_ITS ---
EXAMINATION: US RETROPERITONEAL LIMITED (RENAL ONLY) CLINICAL INFORMATION: End-stage renal disease. COMPARISON: CT abdomen and pelvis 06/12/2020. TECHNIQUE: Real-time imaging of the kidneys. FINDINGS: RIGHT KIDNEY: 6.5 x 3.5 x 4.1 cm (SAG x AP x TRV). The kidney is small with increased echogenicity and cortical thinning. No calculi or focal parenchymal lesions. No hydronephrosis. LEFT KIDNEY: 7.9 x 3.3 x 3.2 cm (SAG x AP x TRV). The kidney is small with increased echogenicity and cortical thinning. No renal calculi or hydronephrosis. A benign tiny 0.4 cm cortical mid renal Bosniak class I cyst is noted which requires no additional imaging or followup. No solid renal masses are seen. US/US renal BI IMPRESSION: Small echogenic kidneys consistent with medical renal disease. Electronically signed by: Christophe Bradford MD 12/12/2023 11:51 AM EDT
== END 2023-12-05 11:24 | disposition home or self-care (01) ==
LOC: HO.US 11:23
PROVIDERS: PCP Physician Assistant; Visit Provider Urology
DX: N18.6 End stage renal disease (principal); Z87.440 Personal history of urinary (tract) infections
CPT/HCPCS: 76775

== ENCOUNTER 2024-01-08 13:35 | Inpatient (IN) | payer MEDICARE, OTHER, SELFPAY ==
--- NOTE | 2024-01-08 | ECG_ITS ---
Test Reason : PRE-OP Blood Pressure : / mmHG Vent. Rate : 082 BPM Atrial Rate : 082 BPM P-R Int : 174 ms QRS Dur : 084 ms QT Int : 364 ms P-R-T Axes : 063 -10 025 degrees QTc Int : 425 ms Sinus rhythm with Premature supraventricular complexes Nonspecific ST and T wave abnormality Abnormal ECG When compared with ECG of 02-JAN-2022 17:46, Premature supraventricular complexes are now Present Referred By: Neptali Pérez Electronically Signed By:JESUS DEL CID
--- NOTE | ~2024-01-08 | XR_ITS ---
EXAMINATION: XR HIP, LEFT CLINICAL INFORMATION: Status post fall. COMPARISON: None available. TECHNIQUE: Two views of the left hip. FINDINGS: Cortical disruption and foreshortening involving the left femoral neck with upward position of the left femur with respect to the left acetabulum. The left femoral head is well-seated in the left acetabulum. The bony pelvis is grossly intact. Right hip appears grossly intact. XR/XR hip LT w PEL1V IMPRESSION: Acute comminuted displaced fracture, left femoral neck. Electronically signed by: Phil Duron MD 01/08/2024 03:55 PM EDT
--- NOTE | ~2024-01-08 | XR_ITS ---
EXAMINATION: XR CHEST CLINICAL INFORMATION: Pre-op clearance COMPARISON: CT chest 08/23/2022. TECHNIQUE: Frontal view of the chest was obtained. FINDINGS: Normal appearance of the cardiomediastinal structures. No effusions or pneumothoraces. No focal pulmonary consolidation. Normal pattern of pulmonary vasculature. Tortuosity of the thoracic aorta. XR/XR chest 1V IMPRESSION: No acute cardiopulmonary abnormalities. Electronically signed by: Lonnie Gill MD 01/09/2024 06:29 AM EDT
--- NOTE | ~2024-01-08 | XR_ITS ---
EXAMINATION: XR PELVIS CLINICAL INFORMATION: Post left hip arthroplasty. COMPARISON: Radiograph left hip 01/08/2024. TECHNIQUE: AP view of the pelvis. FINDINGS: Prosthetic components of the left hip hemiarthroplasty are appropriately aligned. No periprosthetic fracture. Gas from recent surgery is present in the surrounding soft tissues. Surgical skin sana noted in the left gluteal region. Catheter noted overlying the perineal region. Redemonstration of radiodensity overlying the right proximal femoral neck, unchanged. XR/XR pelvis 1-2V IMPRESSION: Status post left hip hemiarthroplasty with expected postoperative changes. Electronically signed by: Shraddha Ornelas MD 01/10/2024 12:28 PM EDT
--- NOTE | ~2024-01-08 | CT_ITS ---
EXAMINATION: NONCONTRAST HEAD CT NONCONTRAST CERVICAL SPINE CT INDICATION INFORMATION: Fall COMPARISON: None TECHNIQUE: Separate noncontrast CT examinations of the head and cervical spine were performed. Coronal and sagittal images were created for each examination at the technologist workstation. This CT examination was performed using dose optimization techniques as appropriate, variously including the following: *Automated exposure control *Adjustment of mA and/or kV according to patient size (this includes techniques or standardized protocols for targeted exams where dose is matched to indication/reason for exam; i.e. extremities or head) *Use of iterative reconstruction technique DLP: 934 mGy-cm FINDINGS: Head: There is no evidence of acute intracranial hemorrhage or territorial infarction. No abnormal mass effect or midline shift is seen. Bear to white matter differentiation is well preserved. No extra-axial fluid collections are identified. No hydrocephalus. No significant volume loss. Patchy periventricular and deep white matter hypoattenuation is consistent with mild small vessel ischemic changes. No acute osseous or soft tissue abnormality. The mastoid air cells and visualized portions of the paranasal sinuses are well aerated. Cervical spine: There is anatomic alignment of the vertebral bodies and posterior elements. The atlantoaxial and atlantooccipital articulations are intact. Vertebral body heights are maintained. There is multilevel moderate intervertebral disc space narrowing with endplate osteophyte formation and facet arthropathy. No evidence of acute fracture. No prevertebral soft tissue swelling. There is a mixed sclerotic and lucent lesion in the C4 vertebral body measuring 5 mm Visualized portions of the lung apices are unremarkable. The thyroid gland is unremarkable. CT/CT cervical spine wo IV con IMPRESSION: 1. No acute intracranial process. 2. No acute fractures of the cervical spine. 3. Moderate degenerative changes of the cervical spine. 4. 5 mm mixed sclerotic and lucent lesion in the C4 vertebral body. Electronically signed by: Rodolfo Kirkland MD 01/08/2024 06:14 PM EDT
[2024-01-08 14:28] VITALS: BP 146/68; PULSE 69; O2SAT 96
[2024-01-08 14:30] VITALS: BMI 28.3
--- NOTE | 2024-01-08 14:55 | PC.NURSE ---
patient from home after falling at home, per patient she was raking leaves and went to stomp the pile down and slipped and fell on her hip, patient unable to straighten left leg, +deformity noticed by Ashley VARGAS. CMS intact in both lower extremities, palpable pedal pulses, patient states while stationary pain is 1/10 but when she tries to move her leg she cannot. patient denies blood thinners, denies head strike or LOC.
[2024-01-08 14:58] LABS: MANUAL DIFF FLAG NO
[2024-01-08 15:01] LABS: Basophils Absolute Auto 0.1 X10*3/uL (0.0-0.2); Basophils Percent Auto 0.7 % (0-2); Eosinophils Absolute Auto 0.1 X10*3/uL (0.0-0.4); Eosinophils Percent Auto 0.8 % (0-4); Hematocrit 36.5 % (37.0-47.0); Imm Gran Abs Auto 0.04 X10*3/uL (0.00-0.03); Imm Gran Pct Auto 0.4 % (0.0-0.4); Lymphocytes Absolute Auto 1.1 X10*3/uL (1.2-4.9); Lymphocytes Percent Auto 11.5 % (20-40); Mean Corpuscular HGB Conc 32.9 g/dl (31.0-35.0); Mean Corpuscular Hemoglobin 32.9 pg (27.0-33.0); Mean Platelet Volume 10.2 fL (9.4-12.3); Monocytes Absolute Auto 0.6 X10*3/uL (0.1-1.2); Monocytes Percent Auto 6.1 % (2-11); Neutrophils Percent Auto 80.5 % (45-73); Platelet Count 335 X10*3/uL (160-400); Red Blood Count 3.65 X10*6/uL (4.20-5.50); Red Cell Distribution Width 13.9 % (11.0-16.0)
[2024-01-08 15:06] LABS: INTERNATIONAL NORM RATIO 0.9 (0.9-1.1); Prothrombin Time 10.3 SEC (10.9-12.4)
--- NOTE | 2024-01-08 15:36 | ED.GENADULT ---
HPI - General Adult General Chief complaint: Extremity Injury, Lower Stated complaint: FALL,LLE PAIN PER EMS Time Seen by Provider: 01/08/24 15:11 Source: patient and RN notes reviewed Mode of arrival: ambulatory Limitations: no limitations History of Present Illness ED Provider: Khadra Galeano PA-C HPI narrative: This is a 73-year-old female, with a history of chronic renal insufficiency (dialysis Friday and Friday), who presents emergency department with complaints of left hip pain since today. Patient states that she was outside raking leaves and she put her leg in a trash barrel to push the leaves down. She immediately became off balance and fell backwards landing onto her left hip. Patient reports that she was on the ground for several minutes and her neighbors found her. She did not hit her head or lose consciousness. She has been unable to bear weight on her left leg since. She is not on anticoagulation. She denies any headache, dizziness, blurred vision, chest pain, shortness of breath. She felt fine prior to the fall. No other complaints or concerns at this time. MD complaint: Khadra Galeano PA-C Onset (ago): day(s) Relieving factors: none Exacerbating factors: none Associated symptoms: denies other symptoms Treatments prior to arrival: none Related Data Home Medications ?Medication ?Instructions ?Recorded ?Confirmed torsemide 20 mg tablet 20 mg PO DAILY 08/09/20 01/08/24 carvedilol 6.25 mg tablet 1 tab PO BID@0800,1200 12/26/21 01/08/24 ferrous sulfate 325 mg (65 mg 650 mg PO DAILY@1200 12/26/21 01/08/24 iron) tablet lactobacillus combination no.9 4 4,000 mmu cells PO DAILY 07/24/22 01/08/24 billion cell capsule (Adult 50 Plus Probiotic) prednisone 10 mg tablet 5 mg PO DAILY 07/24/22 01/08/24 sevelamer carbonate 800 mg tablet 800 mg PO TID 01/01/23 01/08/24 vitamin B complex-vitamin C-folic 1 tab PO DAILY 01/08/24 01/08/24 acid 0.8 mg tablet (Nephro-Jese) Allergies Allergy/AdvReac Type Severity Reaction Status Date / Time No Known Allergies Allergy Verified 01/08/24 14:32 Review of Systems Review of Systems: Yes all other systems are reviewed and are negative Constitutional: Constitutional: Reports as per [facility] Past Medical History Attestation statement: The following information was validated with the patient. 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 Hyperlipidemia Hypertension Surgical History H/O hernia repair History of partial hysterectomy Social History Social History Household Members: Children Household Members Other:: SON Housing: House Do you presently have visiting nurse or other home services: No Alcohol intake: never Patient Tobacco Use Status: Never used Tobacco Years Smoked: Five years Smoked in Last 30 Days: No Use of substances other than those prescribed or required for medical reasons: No Advance Directives: No Advance Directives Information Provided: Yes Advance Directives Date on File: 06/13/20 Do you have a plan to hurt others: No Plan service: No Current occupational status: retired Physical Exam ED Vital Signs: Vital Signs - 24 hr 01/08/24 17:37 01/08/24 20:07 01/08/24 20:51 Temperature 98.2 F 98.7 F Pulse Rate 77 77 77 Respiratory Rate 18 18 18 Blood Pressure 152/66 H 157/73 H 144/69 H Pulse Oximetry 97 99 99 Oxygen Delivery Method Room Air Room Air Room Air BMI result Body Mass Index 28.3 Const General: cooperative, comfortable and no acute distress Orientation/consciousness: patient oriented x3 Limitations: no limitations [facility] Head: Yes normal to inspection, Yes normocephalic and Yes atraumatic Ears: hearing grossly normal bilaterally General nose exam: Normal external nose present Face and sinus: Yes normal facial exam Mouth: Normal oral and palatal mucosa present, oropharynx normal and moist mucous membranes Throat: Yes posterior oropharynx normal Eyes General: appearance normal, both eyes and all related structures Eyelids: Yes eyelids normal Conjunctivae: conjunctivae normal Sclerae: sclerae normal Pupils: Equal, round and reactive pupils present EOM: EOMs intact bilaterally Neck Other: No midline spine tenderness Neck: Yes normal visual inspection, Yes full ROM and Yes no lymphadenopathy Lymphatic: no lymphadenopathy noted Chest Chest palpation & inspection: normal inspection of the chest Resp Effort & Inspection: normal respiratory effort and able to speak in complete sentences Auscultation: clear to auscultation bilaterally, no crackles, no rales, no rhonchi and no wheezes Cardio Rate: regular rate Rhythm: regular rhythm Heart sounds: S1 normal heart sound present and S2 normal heart sound present GI Inspection: Yes normal to inspection Skin General skin exam: no rashes or lesions noted Trauma: no lacerations or abrasions Wounds: no wounds Neuro General: patient oriented x3 and moves all extremities Cranial nerves: Yes Equal, round and reactive pupils present Extrem Other: Left lower extremity, with left leg shortened and externally rotated. Tenderness palpation along the left lateral hip, no open wounds or sores, no ecchymosis seen. Strong DP pulse. General: Yes normal to inspection Right upper extremity: normal to inspection Left upper extremity: normal to inspection Right lower extremity: normal to inspection Course Reevaluation(s) Reevaluation #1: Head CT returns, no ICH. Chemistry returns, she does have a creatinine of 4.8, and a BUN of 58. She has a history of renal insufficiency in his currently getting dialysis on Tuesdays and Saturdays. Discussed case with digital imaging specialist, Dr. Sheth who requests to be made NPO at midnight, and will be seen by the orthopedic team tomorrow. Patient is in agreement with admission. Time: 19:50 Reevaluation #2: CT cervical spine does show a mixed sclerotic and lucent lesion at the C4 vertebral body. Discussed this with [facility] who state that this is very nonspecific, unable to discern whether this is a malignant process, and should have outpatient follow-up. Discussed with patient. Patient also reporting pain and spasming, will treat with oxycodone. Her creatinine clearance is 10 therefore contraindications with other narcotic pain medications. Discussed with my attending physician, Dr. Turcios, who is in agreement with this plan. Discussed cervical spine findings with Dr. Sheth. Transfer of care initiated to the hospitalist team. Medications Administered Discontinued Medications Generic Name Dose Route Start Last Admin Trade Name Freq PRN Reason Stop Dose Admin Acetaminophen 650 mg 01/08/24 15:21 01/08/24 16:37 Acetaminophen 325 Mg Tablet PO 01/08/24 15:22 650 mg ONCE ONE Administration Lorazepam 1 mg 01/08/24 16:55 01/08/24 17:14 Lorazepam 2 Mg/Ml Vial IVPUSH 01/08/24 16:56 1 mg ONCE ONE Administration Oxycodone HCl 5 mg 01/08/24 20:58 01/08/24 21:12 Oxycodone Hcl Immed Release 5 Mg Tablet PO 01/08/24 20:59 5 mg ONCE ONE Administration Sevelamer Carbonate 800 mg 01/08/24 21:45 01/08/24 21:48 Sevelamer Carbonate Tablet 800 Mg Tablet PO 01/08/24 21:46 800 mg ONCE ONE Administration Medical Decision Making Medical Decision Making [facility] Narrative: This is a 73-year-old female who presents emergency department with complaints of left hip pain status post mechanical fall which occurred today. On arrival, blood pressure elevated at 152/66, all other vital signs within normal limits. Patient's left leg is shortened and externally rotated concerning for a hip fracture. She has a strong DP pulse. Plan: Labs, CT head and neck, x-ray left hip Differential Diagnosis Differential Diagnoses: The differential diagnosis associated with the presentation includes Fracture, contusion, ICH, SDH Admission/Observation Consideration of admission/observation: Escalation of care including admission/observation considered Patient requiring admission secondary to displaced humeral neck fracture Lab Data [facility] Lab Attestation statement: I reviewed the patient's lab results. No leukocytosis, H&H revealing microcytic anemia with an H&H of 12/36.5. Creatinine 4.8, BUN 58. 01/08/24 14:51 01/08/24 17:14 Labs: Lab Results 01/08/24 01/08/24 Range/Units 14:51 17:14 WBC 10.0 (4.8-10.8) X10*3/uL RBC 3.65 L (4.20-5.50) X10*6/uL Hgb 12.0 D (12.0-16.0) g/dl Hct 36.5 L (37.0-47.0) % MCV 100.0 H (80.0-98.0) fL MCH 32.9 (27.0-33.0) pg MCHC 32.9 (31.0-35.0) g/dl RDW 13.9 (11.0-16.0) % Plt Count 335 (160-400) X10*3/uL MPV 10.2 (9.4-12.3) fL Immature Gran % (Auto) 0.4 (0.0-0.4) % Neut % (Auto) 80.5 H (45-73) % Lymph % (Auto) 11.5 L (20-40) % [place] % (Auto) 6.1 (2-11) % Eos % (Auto) 0.8 (0-4) % Baso % (Auto) 0.7 (0-2) % Lymph # (Auto) 1.1 L (1.2-4.9) X10*3/uL [place] # (Auto) 0.6 (0.1-1.2) X10*3/uL Eos # (Auto) 0.1 (0.0-0.4) X10*3/uL Baso # (Auto) 0.1 (0.0-0.2) X10*3/uL Abs Immat Gran (auto) 0.04 H (0.00-0.03) X10*3/uL Absolute Neuts (auto) 8.0 (2.0-8.3) x10*3/uL Absolute Nucleated RBC 0.000 (0.0-0.012) X10*3/uL Nucleated RBC % (auto) 0.0 (0.0-0.2) /100WBC PT 10.3 L (10.9-12.4) SEC INR 0.9 (0.9-1.1) Sodium 143 (135-145) mmol/L Potassium 4.0 (3.3-5.1) mmol/L Chloride 102 (96-108) mmol/L Carbon Dioxide 25 (22-29) mmol/L Anion Gap 20 (12-20) BUN 58 H (9-16) mg/dL Creatinine 4.82 H* (0.5-1.4) mg/dL Estim Creat Clear Calc 10.1 Estimated GFR 9 Random Glucose 125 H (60-115) mg/dL Calcium 10.1 D (8.4-10.2) mg/dL Total Bilirubin 0.3 (0.0-1.0) mg/dL AST 26 (5-31) U/L ALT 22 (0-31) U/L Alkaline Phosphatase 94 (39-117) U/L Total Protein 7.3 (6.5-8.0) g/dL Albumin 4.5 (3.5-5.0) g/dL Radiology Impression Discussion of test interpretation with radiology: I have reviewed the radiologist's reading. Radiologist Impression: CT/CT head/brain wo IV con IMPRESSION: 1. No acute intracranial process. 2. No acute fractures of the cervical spine. 3. Moderate degenerative changes of the cervical spine. 4. 5 mm mixed sclerotic and lucent lesion in the C4 vertebral body. Electronically signed by: Rodolfo Kirkland MD 01/08/2024 06:14 PM EDT RP Dictated By: Rodolfo Kirkland MD Signed By: <Electronically signed by Rodolfo Kirkland MD in [place]> CT/CT cervical spine wo IV con IMPRESSION: 1. No acute intracranial process. 2. No acute fractures of the cervical spine. 3. Moderate degenerative changes of the cervical spine. 4. 5 mm mixed sclerotic and lucent lesion in the C4 vertebral body. Electronically signed by: Rodolfo Kirkland MD 01/08/2024 06:14 PM EDT RP Dictated By: Rodolfo Kirkland MD XR/XR hip LT w PEL1V IMPRESSION: Acute comminuted displaced fracture, left femoral neck. Electronically signed by: Phil Duron MD 01/08/2024 03:55 PM EDT RP Dictated By: Phil Mcclain Signed By: <Electronically signed by Phil Miles in [place]> Critical Care Time Critical Care Time Critical Care Time: Yes Total Critical Care Time: 60 Attestation: I have personally provided critical care time exclusive of time spent on separately billable procedures. Time includes review of lab data, radiology results, discussion with consultants, and monitoring for potential decompensation. Intervention performed as documented. Discharge Plan Discharge Clinical Impression: Fracture of femoral neck, left Qualifiers: Encounter type: initial encounter Fracture type: closed Qualified Code(s): S72.002A - Fracture of unspecified part of neck of left femur, initial encounter for closed fracture Patient Disposition: Admitted As Inpatient Print Language: Belarusian
[2024-01-08] MEDS: Acetaminophen 325 MG TABLET 650 MG PO (16:37)
[2024-01-08] MEDS: LORazepam 2 MG/ML VIAL 1 MG IVPUSH (17:14)
[2024-01-08 17:37] VITALS: BP 152/66; PULSE 77; RESP 18; TEMP 36.8; O2SAT 97
[2024-01-08 17:38] LABS: Alanine Aminotransferase 22 U/L (0-31); Albumin Level 4.5 g/dL (3.5-5.0); Alkaline Phosphatase 94 U/L (39-117); Anion Gap 20 (12-20); Aspartate Amino Transferase 26 U/L (5-31); Bilirubin Total 0.3 mg/dL (0.0-1.0); Blood Urea Nitrogen 58 mg/dL (9-16); Calcium 10.1 mg/dL (8.4-10.2); Carbon Dioxide 25 mmol/L (22-29); Chloride 102 mmol/L (96-108); Creatinine Clr Calc Pharmacy 10.1; Estimated Glomerular Filt Rate 9; Glucose Random 125 mg/dL (60-115); Sodium 143 mmol/L (135-145); Total Protein 7.3 g/dL (6.5-8.0)
[2024-01-08 20:07] VITALS: BP 157/73; PULSE 77; RESP 18; TEMP 37.1; O2SAT 99
[2024-01-08 20:51] VITALS: BP 144/69; PULSE 77; RESP 18; O2SAT 99
--- NOTE | 2024-01-08 20:52 | MHC.EDTECH ---
This tech took over care of patient at 1900,rounded and introduced self to patient,vitals taken,patient has a pure wick on placed by previous shift,patient is clean and dry,call rayo in reach
[2024-01-08] MEDS: oxyCODONE HCl Immed Release 5 MG TABLET PO (21:12)
--- NOTE | 2024-01-08 21:27 | PM.IMHP ---
History of Present Illness Date of Service: 01/08/24 Attending physician on admission: Antonio Epstein Chief Complaint: Left hip pain s/p fall at home Pt is a 73-year-old female with a PMH significant for?HTN, ESRD on HD Tue/Fri, granulomatous with polyangiitis, and hx of recurrent UTIs who presents to the ED with?left hip pain secondary to mechanical fall. Patient reports she was outside raking leaves when she stepped into a barrel to push the leaves down, became off balance, tripped, and fell down landing on her left hip. Denies head strike. Patient immediately felt pain in her left hip that radiated down her leg and found she was unable to move. Yelled out to a neighbor who contacted EMS. Patient also reports left leg numbness and tingling. No loss of bladder or bowel function. No saddle anesthesia. Denies lightheadedness or dizziness. No chest pain/pressure, palpitations. No fever, chills, nausea, vomiting, abdominal pain. Denies shortness or breath or difficulty breathing. Patient denies neck or upper back pain, or numbness or tingling to upper extremities. In the ED pt was hypertensive up to 157/73, vitals otherwise stable and WNL. Labs were grossly unremarkable and baseline for patient. No leukocytosis. Stable H&H. No significant electrolyte abnormalities. BUN 58 and creatinine 4.82, around baseline. Hepatic function WNL. X-ray of hip and pelvis found acute comminuted, displaced fracture of left femoral neck. CT of head negative for acute intracranial process. CT of cervical spine negative for acute fracture subluxation. However, found moderate degenerative changes in 5 mm mixed sclerotic and lucent lesion on C4 vertebral body. Pt was treated with acetaminophen, Ativan, and oxycodone 5 mg p.o.. Pt will be admitted to the hospital for treatment and further evaluation of acute comminuted displaced left femoral neck fracture. 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 Hyperlipidemia Hypertension Surgical History H/O hernia repair History of partial hysterectomy Social History Household Members: Children Household Members Other:: SON Housing: House Do you presently have visiting nurse or other home services: No Alcohol intake: never Patient Tobacco Use Status: Never used Tobacco Years Smoked: Five years Smoked in Last 30 Days: No Use of substances other than those prescribed or required for medical reasons: No Advance Directives: No Advance Directives Information Provided: Yes Advance Directives Date on File: 06/13/20 Do you have a plan to hurt others: No Plan service: No Current occupational status: retired [employer] Allergies Allergy/AdvReac Type Severity Reaction Status Date / Time No Known Allergies Allergy Verified 01/08/24 14:32 Home Medications ?Medication ?Instructions ?Recorded ?Confirmed ?Last Taken ?Type torsemide 20 mg tablet 20 mg PO DAILY 08/09/20 01/08/24 01/08/24 08:00 History carvedilol 6.25 mg tablet 1 tab PO BID@0800,1200 12/26/21 01/08/24 01/08/24 08:00 History ferrous sulfate 325 mg (65 mg 650 mg PO DAILY@1200 12/26/21 01/08/24 01/08/24 08:00 History iron) tablet lactobacillus combination no.9 4 4,000 mmu cells PO DAILY 07/24/22 01/08/24 01/08/24 08:00 History billion cell capsule (Adult 50 Plus Probiotic) prednisone 10 mg tablet 5 mg PO DAILY 07/24/22 01/08/24 01/08/24 08:00 History sevelamer carbonate 800 mg tablet 800 mg PO TID 01/01/23 01/08/24 01/08/24 10:30 History vitamin B complex-vitamin C-folic 1 tab PO DAILY 01/08/24 01/08/24 Unknown History acid 0.8 mg tablet (Nephro-Jese) Physical Exam Vital Signs and Narrative: Vital Signs: Last Vital Signs Temp 98.7 F 01/08/24 20:07 Pulse 77 01/08/24 20:51 Resp 18 01/08/24 20:51 BP 144/69 H 01/08/24 20:51 Pulse Ox 99 01/08/24 20:51 O2 Del Method Room Air 01/08/24 20:51 BMI result Body Mass Index 28.3 General: AOx3, no acute distress Resp: CTA bilaterally CVS: S1, S2, regularly irregular rhythm. Pedal pulses 2+. GI: +BS, NT, no distention Skin: Warm, dry Neuro: Cranial nerves II-XII grossly intact bilaterally. Motor grossly intact bilaterally. Extremities: No edema. Left leg shortened and externally rotated. Left hip ROM reduced secondary to pain. Psych: Appropriate affect Results Labs 01/08/24 14:51 01/08/24 17:14 Labs: Laboratory Results - last 24 hr 01/08/24 01/08/24 14:51 17:14 MCV 100.0 H MCH 32.9 MCHC 32.9 RDW 13.9 Plt Count 335 MPV 10.2 Immature Gran % (Auto) 0.4 Neut % (Auto) 80.5 H Lymph % (Auto) 11.5 L Bradley % (Auto) 6.1 Eos % (Auto) 0.8 Baso % (Auto) 0.7 Lymph # (Auto) 1.1 L Bradley # (Auto) 0.6 Eos # (Auto) 0.1 Baso # (Auto) 0.1 Abs Immat Gran (auto) 0.04 H Absolute Neuts (auto) 8.0 Absolute Nucleated RBC 0.000 Nucleated RBC % (auto) 0.0 PT 10.3 L INR 0.9 Anion Gap 20 Estim Creat Clear Calc 10.1 Estimated GFR 9 Random Glucose 125 H Calcium 10.1 D Total Bilirubin 0.3 AST 26 ALT 22 Alkaline Phosphatase 94 Total Protein 7.3 Albumin 4.5 Imaging Radiologist's Impressions: Impressions Hip/Pelvis X-Ray 01/08/24 15:35 IMPRESSION: Acute comminuted displaced fracture, left femoral neck. Electronically signed by: Phil Duron MD 01/08/2024 03:55 PM EDT RP Cervical Spine CT 01/08/24 17:22 IMPRESSION: 1. No acute intracranial process. 2. No acute fractures of the cervical spine. 3. Moderate degenerative changes of the cervical spine. 4. 5 mm mixed sclerotic and lucent lesion in the C4 vertebral body. Electronically signed by: Rodolfo Kirkland MD 01/08/2024 06:14 PM EDT RP Head CT 10/31/24 17:22 IMPRESSION: 1. No acute intracranial process. 2. No acute fractures of the cervical spine. 3. Moderate degenerative changes of the cervical spine. 4. 5 mm mixed sclerotic and lucent lesion in the C4 vertebral body. Electronically signed by: Rodolfo Kirkland MD 01/08/2024 06:14 PM EDT RP Assessment and Plan (1) Fracture of femoral neck, left: Qualifiers: Encounter type: initial encounter Fracture type: closed Qualified Code(s): S72.002A - Fracture of unspecified part of neck of left femur, initial encounter for closed fracture Status: Acute Plan Pt is a 73-year-old female with a PMH significant for?HTN, ESRD on HD Tue/Sat, granulomatosis with polyangiitis, and hx of recurrent UTIs who presents to the ED with?left hip pain secondary to mechanical fall. Pt will be admitted to the hospital for treatment and further evaluation of acute comminuted displaced left femoral neck fracture. Left hip fracture Secondary to mechanical fall at home X-ray showing acute comminuted displaced left femoral neck fracture Analgesics for pain management NPO after midnight for impending surgical intervention Orthopedics consult Patient RCRI class II risk Will check CXR and EKG C4 lesion CT of cervical spine found 5 mm mixed sclerotic and lucent lesion in C4 vertebral body Appears incidental finding of unclear etiology or significance Imaging reviewed by Dr. Sheth in ortho who recommended admission surgical intervention Patient asymptomatic: Denies neck or upper back pain, no numbness, tingling, weakness of upper extremities bilaterally Should follow up outpatient ESRD On HD Tue/Sat Follows with [facility] consult Continue sevelamer, torsemide Follow labs Monitor on telemetry HTN Continue carvedilol Granulomatosis with polyangiitis Continue prednisone Full Code Attending:?Dr. Doss DVT Prophylaxis: Pneumatic boots due to impending surgical intervention Pt will require a hospitalization of at least two nights for treatment of?acute left hip fracture requiring surgical intervention. Quality Stroke Does the patient have a stroke diagnosis?: No VTE Prior VTE?: No VTE Risk Level:: Medical - moderate - high VTE Device Contraindication: N/A - Device Ordered VTE Drug Contraindication: Treatment Not Indicated
--- NOTE | 2024-01-08 21:29 | PHA.MEDREC ---
Addendum entered by Jonathan Soni 01/08/24 21:38: reviewed Original Note: Pharmacy Consult ? Medication Reconciliation Pharmacy has reviewed the medication reconciliation done by nursing. Spoke to patient to confirm med list.
[2024-01-08] MEDS: Sevelamer Carbonate Tablet 800 MG TABLET PO (21:48)
--- NOTE | 2024-01-08 21:59 | MHC.EDTECH ---
Rounds and belonging list completed,copy placed in chart
[2024-01-08 23:47] VITALS: BP 157/75; PULSE 86; RESP 19; TEMP 37.2; O2SAT 95
--- NOTE | 2024-01-08 23:53 | MHC.EDTECH ---
Patient placed on the laboratory monitor,EKG completed per hospitalist order,this software writer sent a picture to hospitalist Beto patient appears to be comfortably,warm blanket given,call rayo in reach
[2024-01-09] VITALS (11 sets, daily range): BP systolic 133–173; BP diastolic 65–81; PULSE 71–110; RESP 16–20; TEMP 36.3–37.2; O2SAT 95–98; BMI 20.6
[2024-01-09] MEDS: oxyCODONE HCl Immed Release 5 MG TABLET PO (01:36)
[2024-01-09] MEDS: 0.9 % Sodium Chloride Flush 3 ML SYRINGE IVFLUSH ×4 (01:36→20:48)
[2024-01-09 07:01] LABS: Hematocrit 35.1 % (37.0-47.0); Hemoglobin 11.5 g/dl (12.0-16.0); Mean Corpuscular HGB Conc 32.8 g/dl (31.0-35.0); Mean Corpuscular Hemoglobin 32.3 pg (27.0-33.0); Mean Corpuscular Volume 98.6 fL (80.0-98.0); Mean Platelet Volume 10.3 fL (9.4-12.3); Platelet Count 334 X10*3/uL (160-400); Red Blood Count 3.56 X10*6/uL (4.20-5.50); Red Cell Distribution Width 14.1 % (11.0-16.0); White Blood Count 9.2 X10*3/uL (4.8-10.8)
[2024-01-09 07:04] LABS: Anion Gap 17 (12-20); Blood Urea Nitrogen 58 mg/dL (9-16); Calcium 10.2 mg/dL (8.4-10.2); Carbon Dioxide 25 mmol/L (22-29); Chloride 105 mmol/L (96-108); Creatinine Clr Calc Pharmacy 8.4; Estimated Glomerular Filt Rate 8; Glucose Random 106 mg/dL (60-115); Potassium 3.7 mmol/L (3.3-5.1); Sodium 143 mmol/L (135-145)
--- NOTE | 2024-01-09 08:14 | PM.CNOR ---
History of Present Illness HPI Consult date: 01/09/24 Chief complaint: left hip fracture, ESRD on HD Narrative: 73-year-old female with a PMH significant for?HTN, ESRD on HD Tue/Sat, granulomatous with polyangiitis, and hx of recurrent UTIs who presents to the ED with?left hip pain secondary to mechanical fall. She states she was raking leaves when she stuck her leg in the barrel to push the leaves down when she fell onto her left side. Patient immediately felt pain in her left hip that radiated down her leg and found she was unable to move. She was transported to the ED via EMS. In the ED xrays obtained and she was found to have a femoral neck fracture on the left. She was admitted to the medical service and orthopedics was consulted for surgical planning. She lives with her son and she has no assistive devices for ambulation. 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 If so, by whom?: No Is there a partner from a previous relationship who is making you feel unsafe now?: No Are you made to feel afraid or neglected: No Advance Directives: No Advance Directives Information Provided: Yes Advance Directives Date on File: 06/13/20 Do you have a plan to hurt others: No Plan Recently lost weight without trying: No Patient : No service: No Current occupational status: retired Meds Allergies Allergy/AdvReac Type Severity Reaction Status Date / Time No Known Allergies Allergy Verified 01/08/24 14:32 Active Medications: Current Medications Acetaminophen (Acetaminophen 325 Mg Tablet) 650 mg PO Q6H PRN PRN Reason: Pain, Mild (Pain Scale 1-3), fever or headache Calcium Carbonate (Calcium Carbonate 750 Mg Tab.Chew) 750 mg PO Q4H PRN PRN Reason: Heartburn Carvedilol (Carvedilol 6.25 Mg Tablet) 6.25 mg PO BID@0800,1200 [facility]; Protocol Ferrous Sulfate (Ferrous Sulfate 324 Mg Tablet.Dr) 648 mg PO DAILY@1200 [facility] Magnesium Hydroxide (Milk Of Magnesia 30 Ml Oral.Susp) 30 ml PO DAILY PRN PRN Reason: Constipation Melatonin (Melatonin 3 Mg Tablet) 6 mg PO BEDTIME PRN PRN Reason: Insomnia Morphine Sulfate (Morphine Sulfate 2 Mg/Ml Cartridge) 2 mg IVPUSH Q4H PRN; Protocol PRN Reason: Pain, Severe (Pain Scale 7-10) Multivitamins/Vitamin C (Multivitamin Tablet) 1 tab PO DAILY [facility] Ondansetron HCl (Ondansetron Hcl 4 Mg/2 Ml Vial) 4 mg IVPUSH Q8H PRN PRN Reason: Nausea and Vomiting Oxycodone HCl (Oxycodone Hcl Immed Release 5 Mg Tablet) 5 mg PO Q4H PRN PRN Reason: Pain, Moderate(Pain Scale 4-6) Last Admin: 01/09/24 01:36 Dose: 5 mg Prednisone (Prednisone 5 Mg Tablet) 5 mg PO DAILY [facility] Sevelamer Carbonate (Sevelamer Carbonate Tablet 800 Mg Tablet) 800 mg PO TID [facility] Sodium Chloride (0.9 % Sodium Chloride Flush 3 Ml Syringe) 3 ml IVFLUSH QSHIFT [facility] Last Admin: 01/09/24 01:36 Dose: 3 ml Torsemide (Torsemide 20 Mg Tablet) 20 mg PO DAILY [facility]; Protocol Home Medications ?Medication ?Instructions ?Recorded ?Confirmed ?Last Taken ?Type torsemide 20 mg tablet 20 mg PO DAILY 08/09/20 01/08/24 01/08/24 08:00 History carvedilol 6.25 mg tablet 1 tab PO BID@0800,1200 12/26/21 01/08/24 01/08/24 08:00 History ferrous sulfate 325 mg (65 mg 650 mg PO DAILY@1200 12/26/21 01/08/24 01/08/24 08:00 History iron) tablet lactobacillus combination no.9 4 4,000 mmu cells PO DAILY 07/24/22 01/08/24 01/08/24 08:00 History billion cell capsule (Adult 50 Plus Probiotic) prednisone 10 mg tablet 5 mg PO DAILY 07/24/22 01/08/24 01/08/24 08:00 History sevelamer carbonate 800 mg tablet 800 mg PO TID 01/01/23 01/08/24 01/08/24 10:30 History vitamin B complex-vitamin C-folic 1 tab PO DAILY 01/08/24 01/08/24 Unknown History acid 0.8 mg tablet (Nephro-Jese) Physical Exam Vital Signs: Vital Signs: Last Vital Signs Temp 97.3 F 01/09/24 07:50 Pulse 88 01/09/24 07:50 Resp 16 01/09/24 07:50 BP 157/74 H 01/09/24 07:50 Pulse Ox 95 01/09/24 07:50 O2 Del Method Room Air 01/09/24 07:50 BMI result Body Mass Index 20.6 Const: General: cooperative, healthy appearing, comfortable, no acute distress, well developed and alert Orientation/consciousness: patient oriented x3 HEENT: Head: Yes normal to inspection, Yes normocephalic and Yes atraumatic Eyes: General: appearance normal, both eyes and all related structures Neck: Neck: Yes normal visual inspection and Yes no lymphadenopathy Resp: Effort & Inspection: normal respiratory effort and able to speak in complete sentences Cardio: Rate: regular rate Peripheral pulses: Peripheral pulses 2+ throughout GI: Inspection: Yes normal to inspection Palpation (GI): Soft to palpation Skin: General skin exam: no rashes or lesions noted Neuro: General: patient oriented x3 Extrem: Other: Left leg skin intact, no open wounds or abraisons. Pain with log roll, unable to SLR, she is able to plantar and dorsiflex NVI. Psych: Appearance: grossly normal Mental Status: mental status grossly normal Results Labs 01/09/24 06:24 01/09/24 06:24 Labs: Abnormal lab results 01/08/24 01/08/24 01/09/24 Range/Units 14:51 17:14 06:24 RBC 3.65 L 3.56 L (4.20-5.50) X10*6/uL Hgb 11.5 L (12.0-16.0) g/dl Hct 36.5 L 35.1 L (37.0-47.0) % MCV 100.0 H 98.6 H (80.0-98.0) fL Neut % (Auto) 80.5 H (45-73) % Lymph % (Auto) 11.5 L (20-40) % Lymph # (Auto) 1.1 L (1.2-4.9) X10*3/uL Abs Immat Gran (auto) 0.04 H (0.00-0.03) X10*3/uL PT 10.3 L (10.9-12.4) SEC BUN 58 H 58 H (9-16) mg/dL Creatinine 4.82 H* 5.00 H* (0.5-1.4) mg/dL Random Glucose 125 H (60-115) mg/dL H & H 01/08/24 01/09/24 Range/Units 14:51 06:24 Hgb 12.0 D 11.5 L (12.0-16.0) g/dl Hct 36.5 L 35.1 L (37.0-47.0) % Coagulation 01/08/24 Range/Units 14:51 INR 0.9 (0.9-1.1) All other labs normal. Assessment and Plan (1) Fracture of femoral neck, left: Qualifiers: Encounter type: initial encounter Fracture type: closed Qualified Code(s): S72.002A - Fracture of unspecified part of neck of left femur, initial encounter for closed fracture Status: Acute Plan I discussed the case with Simone and explained the extent of the injury to the patient and options available which include surgical intervention. I explained the procedure in detail along with the length of recovery and rehab course. I explained the risk, benefits and alternatives. Risk including, but not limited to infection, blood clots, bleeding, non union or malunion and nerve/tissue damage to surrounding areas. I answered all their questions and with their understanding they have consented to move forward with Operative Fixation of the left hip. The patient will be T&S, med clearance obtained and NPO. Procedures Date of Service Date of Service: 01/09/24
--- NOTE | 2024-01-09 10:48 | MHC.CM.PN ---
IMM 01/09/24, Pt lives with her son, she is independent, no home health services, no DME. She goes to at [facility] in [place] (near [facility]) on . and Sat. HCP is on file and confirmed, son Mejia. PCP confirmed: Leticia Mayo. DCP: TBD following surgery. CM will follow for DC needs.
--- NOTE | 2024-01-09 11:54 | P.CONAN_ITS ---
HPI - Anesthesia Eval Consult details Narrative: for left hip hemiarthroplasty PMFSH Active Problems Active Problems: All Active Problems Fracture of femoral neck, left (Acute) Immunosuppression due to drug therapy (Acute) Chronic cystitis (Acute) History of recurrent UTIs (Acute) ESRD (end stage renal disease) (Acute) Vasculitis (Acute) Recurrent UTI (Acute) Hypercalcemia (Acute) Hyperkalemia (Acute) Anahy's granulomatosis (Acute) Abnormal chest CT (Acute) Leukocytosis (Acute) BILLIE (acute kidney injury) (Acute) Dependence on renal dialysis (Acute) Lung nodules (Acute) Past Medical History Medical History (Updated 01/09/24 @ 11:19 by Solange Obrien, RN) AV fistula Vasculitis, ANCA positive Dependence on renal dialysis Lung nodules 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 Hyperlipidemia Hypertension Family History Family history of problems with anesthesia: No Surgical History Surgical History (Updated 01/09/24 @ 11:19 by Solange Obrien RN) H/O hernia repair History of partial hysterectomy History of Problems with Anesthesia: No Social History Social History Household Members: Children Household Members Other:: SON Housing: House Are you a primary director of primary care to a significant other at home: No Do you presently have visiting nurse or other home services: No Alcohol intake: never Patient Tobacco Use Status: Former Tobacco user Tobacco use type: Cigarette Years Smoked: 5 Smoked in Last 30 Days: No Use of substances other than those prescribed or required for medical reasons: No Have you been hit, kicked, punched, or otherwise hurt by someone within the past year? If so, by whom?: No Is there a partner from a previous relationship who is making you feel unsafe now?: No Are you made to feel afraid or neglected: No Are you DNR?: No Advance Directives: No Advance Directives Information Provided: Yes (Son Lavon Tran [phone]) Advance Directives on File: No Advance Directives Date on File: 06/13/20 Do you have a plan to hurt others: No Plan Recently lost weight without trying: No How much weight loss: Not applicable Eating poorly because of decreased appetite: No Nutrition screen score: 0 Nutrition Risks: No Nutritional Risk Patient : No : No Poor oral hygiene: No service: No Current occupational status: retired Meds Allergies Allergy/AdvReac Type Severity Reaction Status Date / Time No Known Allergies Allergy Verified 01/09/24 11:20 Active Medications: Current Medications Acetaminophen (Acetaminophen 325 Mg Tablet) 650 mg PO Q6H PRN PRN Reason: Pain, Mild (Pain Scale 1-3), fever or headache Calcium Carbonate (Calcium Carbonate 750 Mg Tab.Chew) 750 mg PO Q4H PRN PRN Reason: Heartburn Carvedilol (Carvedilol 6.25 Mg Tablet) 6.25 mg PO BID@0800,1200 [facility]; Protocol Last Admin: 01/09/24 08:45 Dose: Not Given Ferrous Sulfate (Ferrous Sulfate 324 Mg Tablet.Dr) 648 mg PO DAILY@1200 [facility] Magnesium Hydroxide (Milk Of Magnesia 30 Ml Oral.Susp) 30 ml PO DAILY PRN PRN Reason: Constipation Melatonin (Melatonin 3 Mg Tablet) 6 mg PO BEDTIME PRN PRN Reason: Insomnia Morphine Sulfate (Morphine Sulfate 2 Mg/Ml Cartridge) 2 mg IVPUSH Q4H PRN; Protocol PRN Reason: Pain, Severe (Pain Scale 7-10) Multivitamins/Vitamin C (Multivitamin Tablet) 1 tab PO DAILY [facility] Last Admin: 01/09/24 08:45 Dose: Not Given Ondansetron HCl (Ondansetron Hcl 4 Mg/2 Ml Vial) 4 mg IVPUSH Q8H PRN PRN Reason: Nausea and Vomiting Oxycodone HCl (Oxycodone Hcl Immed Release 5 Mg Tablet) 5 mg PO Q4H PRN PRN Reason: Pain, Moderate(Pain Scale 4-6) Last Admin: 01/09/24 01:36 Dose: 5 mg Prednisone (Prednisone 5 Mg Tablet) 5 mg PO DAILY [facility] Last Admin: 01/09/24 08:46 Dose: Not Given Sevelamer Carbonate (Sevelamer Carbonate Tablet 800 Mg Tablet) 800 mg PO TID [facility] Last Admin: 01/09/24 08:44 Dose: Not Given Sodium Chloride (0.9 % Sodium Chloride Flush 3 Ml Syringe) [facility] Last Admin: 01/09/24 08:46 Dose: 3 ml Torsemide (Torsemide 20 Mg Tablet) 20 mg PO DAILY [facility]; Protocol Last Admin: 01/09/24 08:46 Dose: Not Given Home Medications ?Medication ?Instructions ?Recorded ?Confirmed ?Last Taken ?Type torsemide 20 mg tablet 20 mg PO DAILY 08/09/20 01/08/24 01/08/24 08:00 History carvedilol 6.25 mg tablet 1 tab PO BID@0800,1200 12/26/21 01/08/24 01/08/24 08:00 History ferrous sulfate 325 mg (65 mg 650 mg PO DAILY@1200 12/26/21 01/08/24 01/08/24 08:00 History iron) tablet lactobacillus combination no.9 4 4,000 mmu cells PO DAILY 07/24/22 01/08/24 01/08/24 08:00 History billion cell capsule (Adult 50 Plus Probiotic) prednisone 10 mg tablet 5 mg PO DAILY 07/24/22 01/08/24 01/08/24 08:00 History sevelamer carbonate 800 mg tablet 800 mg PO TID 01/01/23 01/08/24 01/08/24 10:30 History vitamin B complex-vitamin C-folic 1 tab PO DAILY 01/08/24 01/08/24 Unknown History acid 0.8 mg tablet (Nephro-Jese) Exam Height,Weight and Vital Signs: Height 5 ft 4 in Weight 54.5 kg Last Vital Signs Temp 99.0 F 01/09/24 11:22 Pulse 84 01/09/24 11:22 Resp 16 01/09/24 11:22 BP 147/67 H 01/09/24 11:22 Pulse Ox 96 01/09/24 11:22 O2 Del Method Room Air 01/09/24 11:22 Pertinent Lab Results Pertinent Lab Results: Laboratory Tests 01/08/24 01/08/24 01/09/24 14:51 17:14 06:24 WBC 10.0 9.2 RBC 3.65 L 3.56 L Hgb 12.0 D 11.5 L Hct 36.5 L 35.1 L MCV 100.0 H 98.6 H MCH 32.9 32.3 MCHC 32.9 32.8 RDW 13.9 14.1 Plt Count 335 334 MPV 10.2 10.3 Immature Gran % (Auto) 0.4 Neut % (Auto) 80.5 H Lymph % (Auto) 11.5 L Lea % (Auto) 6.1 Eos % (Auto) 0.8 Baso % (Auto) 0.7 Lymph # (Auto) 1.1 L Lea # (Auto) 0.6 Eos # (Auto) 0.1 Baso # (Auto) 0.1 Abs Immat Gran (auto) 0.04 H Absolute Neuts (auto) 8.0 Absolute Nucleated RBC 0.000 0.000 Nucleated RBC % (auto) 0.0 0.0 PT 10.3 L INR 0.9 Sodium 143 143 Potassium 4.0 3.7 Chloride 102 105 Carbon Dioxide 25 25 Anion Gap 20 17 BUN 58 H 58 H Creatinine 4.82 H* 5.00 H* Estim Creat Clear Calc 10.1 8.4 Estimated GFR 9 8 Random Glucose 125 H 106 Calcium 10.1 D 10.2 Total Bilirubin 0.3 AST 26 ALT 22 Alkaline Phosphatase 94 Total Protein 7.3 Albumin 4.5 Blood Type Antibody Screen 01/09/24 08:28 WBC RBC Hgb Hct MCV MCH MCHC RDW Plt Count MPV Immature Gran % (Auto) Neut % (Auto) Lymph % (Auto) Lea % (Auto) Eos % (Auto) Baso % (Auto) Lymph # (Auto) Lea # (Auto) Eos # (Auto) Baso # (Auto) Abs Immat Gran (auto) Absolute Neuts (auto) Absolute Nucleated RBC Nucleated RBC % (auto) PT INR Sodium Potassium Chloride Carbon Dioxide Anion Gap BUN Creatinine Estim Creat Clear Calc Estimated GFR Random Glucose Calcium Total Bilirubin AST ALT Alkaline Phosphatase Total Protein Albumin Blood Type O Positive Antibody Screen NEGATIVE Airway Mallampati Class: II TM Dist: <=3cm Neck ROM: Full Loose/Missing/Broken Teeth: No Heart: ok Lungs: ok Assessment and Plan Assessment Anesthesia Assessment: Anesthesia Plan Discussed and Chart Reviewed Final Anesthetic Review Family History of Problems with Anesthesia: No History of Problems with Anesthesia: No NPO: Yes ASA Class: IV Final Preanesthetic Review: No Changes in Pt Med Stat, Meds/Allgs Chart Reviewed, Consent Obtained/Reviewed and Anes Risks/Benef Reviewed Patient Risk: High Procedure Risk: Intermediate Anesthetic Plan Anesthetic Plan: Spinal and Agree w/ Assess. and Plan Disposition: Standard PACU
--- NOTE | 2024-01-09 12:25 | MHC.SHP ---
Pre-Procedural Eval Section A - 24 Hr Update-Section A only Date of Service: 01/09/24 The patient is an INPATIENT: Yes Changes since office visit: No Cold of Flu in the past 2 weeks, No New Medical Problems, No Changes in Medication and No Patient answered all questions The patient has been examined within 24 hours of the surgical procedure. The History & Physical has been completed within 30 days and I have reviewed it.: Yes Section B - Complete if H&P > 30 days Chief Complaint: left hip fracture, ESRD on HD Allergies: Allergies Allergy/AdvReac Type Severity Reaction Status Date / Time No Known Allergies Allergy Verified 01/09/24 11:20 Plan I have reviewed the history and physical and performed a pertinent physical examination on my patient. No changes have occurred unless specified. Time Spent With Patient Time: Total time managing care of this patient today ____ minutes.
--- NOTE | 2024-01-09 14:10 | P.BOP_ITS ---
Brief Operative Note Date of Service: 01/09/24 Pre-op diagnosis: Left femoral neck fracture Post-op diagnosis: same Procedure: Left hip lyel Implants: [employer] Accolade2 #4 127 deg with -3 bipolar Surgeon: Michel Nichols MD Anesthesia: local and spinal Was an Automotive Detailer used for this Procedure?: Yes Automotive Detailer: Jt Butler Estimated blood loss (mL): 150 IV fluids (mL): 750 Pathology: other Condition: stable Disposition: PACU
--- NOTE | 2024-01-09 15:16 | HO.PM.IMPN ---
Subjective Subjective Date of Service: 01/09/24 Interval History: No acute issues overnight. Successful repair of left femoral neck fracture Review of Systems Denies chest pain Denies shortness of breath Denies nausea vomiting diarrhea Denies fever chills Physical Exam Vital Signs: Vital Signs: Last Vital Signs Temp 97.3 F 01/09/24 13:54 Pulse 79 01/09/24 14:24 Resp 18 01/09/24 14:24 BP 151/73 H 01/09/24 14:24 Pulse Ox 98 01/09/24 14:24 O2 Del Method Room Air 01/09/24 14:24 BMI result Body Mass Index 20.6 Const: Other: Awake alert oriented x3 in no acute distress Resp: Other: Clear to auscultation bilaterally no rales rhonchi or wheezes Cardio: Other: No S4; positive S1-S2; no S3 murmurs rubs gallops GI: Other: Soft nontender nondistended normoactive bowel sounds Extrem: Other: No edema bilaterally Objective Data Active Medications Acetaminophen (Acetaminophen 325 Mg Tablet) 650 mg PO Q6H PRN PRN Reason: Pain, Mild (Pain Scale 1-3), fever or headache Calcium Carbonate (Calcium Carbonate 750 Mg Tab.Chew) 750 mg PO Q4H PRN PRN Reason: Heartburn Carvedilol (Carvedilol 6.25 Mg Tablet) 6.25 mg PO BID@0800,1200 [facility]; Protocol Last Admin: 01/09/24 12:04 Dose: Not Given Documented By: RONEY Non-Admin Reason: Off Unit: Surgery Ferrous Sulfate (Ferrous Sulfate 324 Mg Tablet.) 648 mg PO DAILY@1200 [facility] Last Admin: 01/09/24 12:04 Dose: Not Given Documented By: RONEY Non-Admin Reason: Off Unit: Surgery Heparin Sodium (Porcine) (Heparin Sodium,Porcine 5,000 Unit/Ml Vial) 5,000 unit SUBCUT Q12H [facility] Cefazolin Sodium/Dextrose (Ancef) 2 gm in 50 mls @ 100 mls/hr IV POSTOP@1630 [facility] Magnesium Hydroxide (Milk Of Magnesia 30 Ml Oral.Susp) 30 ml PO DAILY PRN PRN Reason: Constipation Melatonin (Melatonin 3 Mg Tablet) 6 mg PO BEDTIME PRN PRN Reason: Insomnia Morphine Sulfate (Morphine Sulfate 2 Mg/Ml Cartridge) 2 mg IVPUSH Q4H PRN; Protocol PRN Reason: Pain, Severe (Pain Scale 7-10) Multivitamins/Vitamin C (Multivitamin Tablet) 1 tab PO DAILY [facility] Last Admin: 01/09/24 08:45 Dose: Not Given Documented By: RONEY Non-Admin Reason: Patient Refused Ondansetron HCl (Ondansetron Hcl 4 Mg/2 Ml Vial) 4 mg IVPUSH Q8H PRN PRN Reason: Nausea and Vomiting Oxycodone HCl (Oxycodone Hcl Immed Release 5 Mg Tablet) 5 mg PO Q4H PRN PRN Reason: Pain, Moderate(Pain Scale 4-6) Last Admin: 01/09/24 01:36 Dose: 5 mg Documented By: DIOGO Prednisone (Prednisone 5 Mg Tablet) 5 mg PO DAILY [facility] Last Admin: 01/09/24 08:46 Dose: Not Given Documented By: RONEY Non-Admin Reason: Patient Refused Sevelamer Carbonate (Sevelamer Carbonate Tablet 800 Mg Tablet) 800 mg PO TID [facility] Last Admin: 01/09/24 08:44 Dose: Not Given Documented By: RONEY Non-Admin Reason: Patient Refused Sodium Chloride (0.9 % Sodium Chloride Flush 3 Ml Syringe) 3 ml IVFLUSH QSHIFT [facility] Last Admin: 01/09/24 08:46 Dose: 3 ml Documented By: RONEY Torsemide (Torsemide 20 Mg Tablet) 20 mg PO DAILY [facility]; Protocol Last Admin: 01/09/24 08:46 Dose: Not Given Documented By: RONEY Non-Admin Reason: Patient Refused Labs 01/09/24 06:24 01/09/24 06:24 Labs: Laboratory Results - last 24 hr 01/08/24 01/09/24 01/09/24 17:14 06:24 08:28 MCV 98.6 H MCH 32.3 MCHC 32.8 RDW 14.1 Plt Count 334 MPV 10.3 Absolute Nucleated RBC 0.000 Nucleated RBC % (auto) 0.0 Anion Gap 20 17 Estim Creat Clear Calc 10.1 8.4 Estimated GFR 9 8 Random Glucose 125 H 106 Calcium 10.1 D 10.2 Total Bilirubin 0.3 AST 26 ALT 22 Alkaline Phosphatase 94 Total Protein 7.3 Albumin 4.5 Blood Type O Positive Antibody Screen NEGATIVE Assessment and Plan (1) Fracture of femoral neck, left: Status: Acute (2) ESRD (end stage renal disease): Status: Acute Plan Pt is a 73-year-old female with a PMH significant for?HTN, ESRD on HD Tue/Sat, granulomatosis with polyangiitis, and hx of recurrent UTIs who presents to the ED with?left hip pain secondary to mechanical fall. Pt will be admitted to the hospital for treatment and further evaluation of acute comminuted displaced left femoral neck fracture. 1.Left hip fracture status post ORIF -further plans as per ortho 2.ESRD - HD Tue/Sat -nephrology consult -continue sevelamer, torsemide -follow renal/divalent 3.HTN -acceptable control on current therapies -adjust as indicated 4.Granulomatosis with polyangiitis -continue prednisone Full Code As per ortho Requires ongoing hospitalization to complete repair of left hip fracture Quality Stroke Does the patient have a stroke diagnosis?: No VTE Prior VTE?: No VTE Risk Level:: Medical - moderate - high VTE Device Contraindication: N/A - Device Ordered VTE Drug Contraindication: Treatment Not Indicated
--- NOTE | 2024-01-09 16:04 | PC.NURSE ---
Pt returned from OR and was temporarily nauseated from transport and resolved quickly and pt declined meds. She denies complaint at this time. She has +PP bilaterally and is able to move but not feel her L foot. Heels floated. Pt being transferred to rm [id number]. Pt aware and son Don updated and aware of transfer. Pharmacy called re rescheduling Sevelemer and Carvedolol to home schedule. Report called to Michael on 3. Plan of care progressing.
[2024-01-09] MEDS: carvediloL 6.25 MG TABLET PO (17:45)
[2024-01-09] MEDS: Sevelamer Carbonate Tablet 800 MG TABLET PO (17:46)
[2024-01-09] MEDS: Multivitamin TABLET 1 TAB PO (17:53)
[2024-01-09] MEDS: Ferrous Sulfate 324 MG TABLET.DR 648 MG PO (17:53)
[2024-01-09] MEDS: predniSONE 5 MG TABLET PO (17:53)
[2024-01-09] MEDS: Torsemide 20 MG TABLET PO (17:53)
[2024-01-09] MEDS: ceFAZolin Sodium/Dextrose,Iso 2 GM/50 ML PIGGYBACK IV (18:15)
[2024-01-09] MEDS: Acetaminophen 325 MG TABLET 650 MG PO (20:48)
--- NOTE | 2024-01-09 21:02 | PC.NURSE ---
Pt alert and orietned, c/o 09/16 back to left thigh pain, ice pack provided over op site,voffered Oxycodone or Morphine , pt refused and preferred to take Tylenol prn po, med given.
[2024-01-10] VITALS (8 sets, daily range): BP systolic 127–153; BP diastolic 62–73; PULSE 77–103; RESP 13–18; TEMP 36–37.4; O2SAT 95–98
[2024-01-10] MEDS: oxyCODONE HCl Immed Release 5 MG TABLET PO (01:22)
[2024-01-10 07:05] LABS: Hematocrit 32.5 % (37.0-47.0); Hemoglobin 10.8 g/dl (12.0-16.0); Mean Corpuscular HGB Conc 33.2 g/dl (31.0-35.0); Mean Corpuscular Hemoglobin 33.1 pg (27.0-33.0); Mean Corpuscular Volume 99.7 fL (80.0-98.0); Mean Platelet Volume 10.5 fL (9.4-12.3); Platelet Count 287 X10*3/uL (160-400); Red Blood Count 3.26 X10*6/uL (4.20-5.50); Red Cell Distribution Width 14.4 % (11.0-16.0); White Blood Count 8.9 X10*3/uL (4.8-10.8)
[2024-01-10 07:26] LABS: Alanine Aminotransferase 6 U/L (0-31); Albumin Level 3.7 g/dL (3.5-5.0); Alkaline Phosphatase 65 U/L (39-117); Anion Gap 18 (12-20); Aspartate Amino Transferase 28 U/L (5-31); Bilirubin Total 0.4 mg/dL (0.0-1.0); Blood Urea Nitrogen 58 mg/dL (9-16); Calcium 9.2 mg/dL (8.4-10.2); Carbon Dioxide 23 mmol/L (22-29); Chloride 104 mmol/L (96-108); Creatinine Clr Calc Pharmacy 8.8; Estimated Glomerular Filt Rate 9; Glucose Fasting 109 mg/dL (60-99); Glucose Random 109 mg/dL (60-115); Potassium 4.2 mmol/L (3.3-5.1); Sodium 141 mmol/L (135-145); Total Protein 6.1 g/dL (6.5-8.0)
[2024-01-10] MEDS: 0.9 % Sodium Chloride Flush 3 ML SYRINGE IVFLUSH ×2 (08:58→16:17)
[2024-01-10] MEDS: Acetaminophen 325 MG TABLET 650 MG PO (08:59)
[2024-01-10] MEDS: Multivitamin TABLET 1 TAB PO (09:04)
[2024-01-10] MEDS: Sevelamer Carbonate Tablet 800 MG TABLET PO ×3 (09:05→17:34)
[2024-01-10] MEDS: predniSONE 5 MG TABLET PO (09:05)
--- NOTE | 2024-01-10 11:47 | HO.POSTANES ---
Post Anesthesia Evaluation Post Anesthesia Evaluation Date of Service: 01/10/24 Vital Signs: Vital Signs Temp Pulse Resp BP Pulse Ox O2 Del Method 01/10/24 07:24 98.8 F 103 H 18 141/73 H 95 Room Air 01/10/24 03:38 96.8 F 88 16 153/68 H 96 Room Air Anesthesia: Spinal Mental Status: Awake Pain Control: Satisfactory Nausea/Vomiting: None Hydration: Adequate Anesthesia-Related Issues: No Anes. Related Issues
[2024-01-10] MEDS: Ferrous Sulfate 324 MG TABLET.DR 648 MG PO (13:20)
[2024-01-10] MEDS: Torsemide 20 MG TABLET PO (13:20)
--- NOTE | 2024-01-10 13:29 | P.PNIM_ITS ---
Subjective Subjective Date of Service: 01/10/24 Interval History: Status post left hip surgery, post operative day 1, receiving hemodialysis. Denies pain, no nausea no vomiting no abdominal pain no other acute events overnight. Review of Systems All other system reviewed and are negative. Physical Exam 2 Vital Signs: Vital Signs: Last Vital Signs Temp 98.6 F 01/10/24 13:10 Pulse 85 01/10/24 13:10 Resp 16 01/10/24 13:10 BP 145/67 H 01/10/24 13:10 Pulse Ox 98 01/10/24 13:10 O2 Del Method Room Air 01/10/24 13:10 BMI result Body Mass Index 20.6 Const: Other: Gen: in no acute distress HEENT: sclera anicteric, moist mucus membranes Neck: RIJ HD catheter Lungs: good air entry, clear bilaterally Heart: regular rate and rhythm, no murmurs Abd: soft, non-tender, non-distended, bowel sounds audible Ext: no edema Left hip dressing in place Skin: warm/well-perfused Neuro: alert and oriented x3, no focal findings Psych: appropriate affect Objective Data Active Medications Acetaminophen (Acetaminophen 325 Mg Tablet) 650 mg PO Q6H PRN PRN Reason: Pain, Mild (Pain Scale 1-3), fever or headache Last Admin: 01/10/24 08:59 Dose: 650 mg Documented By: TAL Calcium Carbonate (Calcium Carbonate 750 Mg Tab.Chew) 750 mg PO Q4H PRN PRN Reason: Heartburn Carvedilol (Carvedilol 6.25 Mg Tablet) 6.25 mg PO BID@0800,1700 [facility]; Protocol Last Admin: 01/10/24 09:24 Dose: Not Given Documented By: TAL Non-Admin Reason: Dialysis Enoxaparin Sodium (Enoxaparin Sodium 30 Mg/0.3 Ml Syringe) 30 mg SUBCUT Q24H [facility] Ferrous Sulfate (Ferrous Sulfate 324 Mg Tablet.) 648 mg PO DAILY@1200 [facility] Last Admin: 01/10/24 13:20 Dose: 648 mg Documented By: TAL Cefazolin Sodium/Dextrose (Ancef) 2 gm in 50 mls @ 100 mls/hr IV POSTOP@1630 [facility] Last Infusion: 01/09/24 18:54 Dose: Infused Documented By: SUHAIL Magnesium Hydroxide (Milk Of Magnesia 30 Ml Oral.Susp) 30 ml PO DAILY PRN PRN Reason: Constipation Melatonin (Melatonin 3 Mg Tablet) 6 mg PO BEDTIME PRN PRN Reason: Insomnia Morphine Sulfate (Morphine Sulfate 2 Mg/Ml Cartridge) 2 mg IVPUSH Q4H PRN; Protocol PRN Reason: Pain, Severe (Pain Scale 7-10) Multivitamins/Vitamin C (Multivitamin Tablet) 1 tab PO DAILY [facility] Last Admin: 01/10/24 09:04 Dose: 1 tab Documented By: TAL Ondansetron HCl (Ondansetron Hcl 4 Mg/2 Ml Vial) 4 mg IVPUSH Q8H PRN PRN Reason: Nausea and Vomiting Oxycodone HCl (Oxycodone Hcl Immed Release 5 Mg Tablet) 5 mg PO Q4H PRN PRN Reason: Pain, Moderate(Pain Scale 4-6) Last Admin: 01/10/24 01:22 Dose: 5 mg Documented By: SUHAIL Prednisone (Prednisone 5 Mg Tablet) 5 mg PO DAILY [facility] Last Admin: 01/10/24 09:05 Dose: 5 mg Documented By: TAL Sevelamer Carbonate (Sevelamer Carbonate Tablet 800 Mg Tablet) 800 mg PO TIDWM [facility] Last Admin: 01/10/24 13:21 Dose: 800 mg Documented By: TAL Sodium Chloride (0.9 % Sodium Chloride Flush 3 Ml Syringe) 3 ml IVFLUSH QSHIFT [facility] Last Admin: 01/10/24 08:58 Dose: 3 ml Documented By: TAL Torsemide (Torsemide 20 Mg Tablet) 20 mg PO DAILY [facility]; Protocol Last Admin: 01/10/24 13:20 Dose: 20 mg Documented By: TAL Comments: Pt. was in dialysis Labs 01/10/24 05:35 01/10/24 05:35 Labs: Laboratory Results - last 24 hr 01/10/24 05:35 MCV 99.7 H MCH 33.1 H MCHC 33.2 RDW 14.4 Plt Count 287 MPV 10.5 Absolute Nucleated RBC 0.000 Nucleated RBC % (auto) 0.0 Anion Gap 18 Estim Creat Clear Calc 8.8 Estimated GFR 9 Random Glucose 109 Fasting Glucose 109 H Calcium 9.2 D Total Bilirubin 0.4 AST 28 ALT 6 Alkaline Phosphatase 65 Total Protein 6.1 L Albumin 3.7 Assessment and Plan (1) Fracture of femoral neck, left: Status: Acute (2) Immunosuppression due to drug therapy: Status: Acute (3) ESRD (end stage renal disease): Status: Acute Plan 73-year-old female with a PMH significant for?HTN, ESRD on HD Tue/Sat, granulomatosis with polyangiitis, and hx of recurrent UTIs who presents to the ED with?left hip pain secondary to mechanical fall. Pt will be admitted to the hospital for treatment and further evaluation of acute comminuted displaced left femoral neck fracture. 1.Left hip fracture status post ORIF postoperative day 1 -good pain control, stable H&H Continue oxycodone for moderate pain and IV morphine for severe pain Add incentive spirometry Follow-up physical therapy recommendation Add Eliquis 2.5 mg b.i.d. for anticoagulation 2.ESRD - HD Tue/Sat -continue sevelamer, torsemide -follow renal/divalent 3.HTN -continue Coreg good blood pressure control , follow BP 4.Granulomatosis with polyangiitis -continue prednisone Full Code Requires ongoing hospitalization for postoperative left hip management and safe disposition Quality Stroke Does the patient have a stroke diagnosis?: No VTE Prior VTE?: No VTE Risk Level:: Medical - moderate - high VTE Device Contraindication: N/A - Device Ordered VTE Drug Contraindication: Treatment Not Indicated
--- NOTE | 2024-01-10 13:39 | W.PM.OPN ---
Operative Note Operative Note Date of Service: 01/09/24 Narrative: Date of Service: 01/09/24 Pre-op diagnosis: Left femoral neck fracture Post-op diagnosis: same Procedure: Left hip lyle Implants: Leesa Accolade2 #4 127 deg with -3 / bipolar Surgeon: Michel Nichols MD Anesthesia: local and spinal Was an Double Head Machine Operator used for this Procedure?: Yes Double Head Machine Operator: Jt Butler Estimated blood loss (mL): 150 IV fluids (mL): 750 Pathology: other Condition: stable Disposition: PACU Procedure in detail: Patient was brought to the operative room placed in the lateral decubitus position. All bony prominences were well padded and the was prepped and draped in standard sterile fashion. IV antibiotics per weight were administered and a time-out was called to identify proper site proper procedure proper surgeon. Radiographs were available and confirmed. I began by making a curvilinear incision over the posterolateral aspect of the greater trochanter. Dissection was taken down to the tensor fascia which was incised in line with the incision and a Charnley retractor was placed. The hip was internally rotated and the external rotators were identified. All vessels in the area were cauterized and a full-thickness capsular/external rotator layer was developed in a hockey-stick fashion starting just proximal to the piriformis. This layer was tagged and the displaced femoral neck fracture was identified. Clean-up cuts was performed while protecxtion the posterolateral soft tissues and the head was removed and measured (44mm) on the back table. I then copiously irrigated the acetabulum and removed all bony fragments. Once this was done I used a cookie cutter to lateralize and a Charnley awl to identify the canal and then sequentially broached up to a 127 deg #4. I then trialed with a standard and a minus head head and a bipolar component matching the femoral head size. I was satisfied with the range of motion and stability and length using the -3. Therefore I removed all instrumentation and copiously irrigated. I then placed my final femoral implant and then retrialed. I was satisfied with the #4 127 deg with -3 26/44 bipolar implant. My final components were then placed. I closed the capsular layer with FiberWire., I performed a layered closure with sana on skin. The patient was placed in sterile dressing extubated brought to recovery room in stable condition there were no known complications.
[2024-01-10] MEDS: carvediloL 6.25 MG TABLET PO (17:34)
[2024-01-10] MEDS: Docusate Sodium 100 MG CAPSULE PO (20:54)
[2024-01-10] MEDS: Apixaban 2.5 MG TABLET PO (20:54)
[2024-01-11 03:20] VITALS: BP 132/80; PULSE 101; RESP 16; TEMP 36.9; O2SAT 96
[2024-01-11 07:38] VITALS: BP 121/56; PULSE 84; RESP 18; TEMP 36.8; O2SAT 97
[2024-01-11] MEDS: predniSONE 5 MG TABLET PO (08:05)
[2024-01-11] MEDS: Sevelamer Carbonate Tablet 800 MG TABLET PO ×3 (08:05→16:57)
[2024-01-11] MEDS: Multivitamin TABLET 1 TAB PO (08:06)
[2024-01-11] MEDS: Acetaminophen 325 MG TABLET 650 MG PO (08:06)
[2024-01-11] MEDS: Apixaban 2.5 MG TABLET PO ×2 (08:07→21:10)
[2024-01-11] MEDS: Torsemide 20 MG TABLET PO (08:07)
[2024-01-11] MEDS: carvediloL 6.25 MG TABLET PO ×2 (08:08→16:56)
[2024-01-11] MEDS: polyethylene glycoL 3350 17 GM POWD.PACK PO (08:09)
[2024-01-11] MEDS: 0.9 % Sodium Chloride Flush 3 ML SYRINGE IVFLUSH ×3 (08:12→21:10)
[2024-01-11 08:21] LABS: Hematocrit 29.2 % (37.0-47.0); Hemoglobin 9.7 g/dl (12.0-16.0)
[2024-01-11 08:36] LABS: Anion Gap 19 (12-20); Blood Urea Nitrogen 34 mg/dL (9-16); Calcium 9.2 mg/dL (8.4-10.2); Carbon Dioxide 21 mmol/L (22-29); Chloride 103 mmol/L (96-108); Creatinine Clr Calc Pharmacy 11.5; Estimated Glomerular Filt Rate 12; Glucose Random 94 mg/dL (60-115); Potassium 3.6 mmol/L (3.3-5.1); Sodium 139 mmol/L (135-145)
--- NOTE | 2024-01-11 10:49 | PM.PNORT ---
Subjective Subjective Date of Service: 01/11/24 Interval history: POD 2 s/p left hip lyle resting in bed Physical Exam Vital Signs: Vital Signs: Last Vital Signs Temp 98.2 F 01/11/24 07:38 Pulse 84 01/11/24 07:38 Resp 18 01/11/24 07:38 BP 121/56 L 01/11/24 07:38 Pulse Ox 97 01/11/24 07:38 O2 Del Method Room Air 01/11/24 03:20 BMI result Body Mass Index 20.6 Procedures Date of Service Date of Service: 01/11/24 Progress Note: A&P Time Spent With Patient Time: Total time managing care of this patient today ____ minutes. Quality Stroke Does the patient have a stroke diagnosis?: No VTE Prior VTE?: No VTE Risk Level:: Medical - moderate - high VTE Device Contraindication: N/A - Device Ordered VTE Drug Contraindication: Treatment Not Indicated
--- NOTE | 2024-01-11 10:53 | PM.EVENT ---
Event Note Date of Service: 01/11/24 Event Note: POD 2 s/p Lt hip lyle no overnight events PT OT for left hip lyle Lovenox dispo-str Time Spent With Patient Time: Total time managing care of this patient today ____ minutes.
[2024-01-11] MEDS: Ferrous Sulfate 324 MG TABLET.DR 648 MG PO (11:02)
--- NOTE | 2024-01-11 14:41 | P.PNIM_ITS ---
Subjective Subjective Date of Service: 01/11/24 Interval History: Being followed for post left hip surgery management and end-stage renal disease Denies pain, offers no acute complaints of nausea, no vomiting, no abdominal pain, no diarrhea, no fevers, no chills or dizziness tolerating diet, no acute events overnight. Review of Systems All other system reviewed and are negative. Physical Exam 2 Vital Signs: Vital Signs: Last Vital Signs Temp 98.2 F 01/11/24 07:38 Pulse 84 01/11/24 07:38 Resp 18 01/11/24 07:38 BP 121/56 L 01/11/24 07:38 Pulse Ox 97 01/11/24 07:38 O2 Del Method Room Air 01/11/24 03:20 BMI result Body Mass Index 20.6 Const: Other: Gen: in no acute distress HEENT: sclera anicteric, moist mucus membranes Lungs: good air entry, clear bilaterally Heart: regular rate and rhythm, no murmurs Abd: soft, non-tender, non-distended, bowel sounds audible Ext: no edema Left hip dressing in place Skin: warm/well-perfused Neuro: alert and oriented x3, no focal findings Psych: appropriate affect Objective Data Active Medications Acetaminophen (Acetaminophen 325 Mg Tablet) 650 mg PO Q6H PRN PRN Reason: Pain, Mild (Pain Scale 1-3), fever or headache Last Admin: 01/11/24 08:06 Dose: 650 mg Documented By: TAL Apixaban (Apixaban 2.5 Mg Tablet) 2.5 mg PO BID [facility] Last Admin: 01/11/24 08:07 Dose: 2.5 mg Documented By: TAL Calcium Carbonate (Calcium Carbonate 750 Mg Tab.Chew) 750 mg PO Q4H PRN PRN Reason: Heartburn Carvedilol (Carvedilol 6.25 Mg Tablet) 6.25 mg PO BID@0800,1700 [facility]; Protocol Last Admin: 01/11/24 08:08 Dose: 6.25 mg Documented By: TAL Docusate Sodium (Docusate Sodium 100 Mg Capsule) 100 mg PO BEDTIME [facility] Last Admin: 01/10/24 20:54 Dose: 100 mg Documented By: AJ Ferrous Sulfate (Ferrous Sulfate 324 Mg Tablet.) 648 mg PO DAILY@1200 [facility] Last Admin: 01/11/24 11:02 Dose: 648 mg Documented By: KARIN Magnesium Hydroxide (Milk Of Magnesia 30 Ml Oral.Susp) 30 ml PO DAILY PRN PRN Reason: Constipation Melatonin (Melatonin 3 Mg Tablet) 6 mg PO BEDTIME PRN PRN Reason: Insomnia Morphine Sulfate (Morphine Sulfate 2 Mg/Ml Cartridge) 2 mg IVPUSH Q4H PRN; Protocol PRN Reason: Pain, Severe (Pain Scale 7-10) Multivitamins/Vitamin C (Multivitamin Tablet) 1 tab PO DAILY [facility] Last Admin: 01/11/24 08:06 Dose: 1 tab Documented By: TAL Ondansetron HCl (Ondansetron Hcl 4 Mg/2 Ml Vial) 4 mg IVPUSH Q8H PRN PRN Reason: Nausea and Vomiting Oxycodone HCl (Oxycodone Hcl Immed Release 5 Mg Tablet) 5 mg PO Q4H PRN PRN Reason: Pain, Moderate(Pain Scale 4-6) Last Admin: 01/10/24 01:22 Dose: 5 mg Documented By: CASTTIFFANY Polyethylene Glycol (Polyethylene Glycol 3350 17 Gm Powd.Pack) 17 gm PO DAILY [facility] Last Admin: 01/11/24 08:09 Dose: 17 gm Documented By: TAL Prednisone (Prednisone 5 Mg Tablet) 5 mg PO DAILY [facility] Last Admin: 01/11/24 08:05 Dose: 5 mg Documented By: TAL Sevelamer Carbonate (Sevelamer Carbonate Tablet 800 Mg Tablet) 800 mg PO TIDWM [facility] Last Admin: 01/11/24 11:02 Dose: 800 mg Documented By: KARIN Sodium Chloride (0.9 % Sodium Chloride Flush 3 Ml Syringe) 3 ml IVFLUSH QSHIFT [facility] Last Admin: 01/11/24 08:12 Dose: 3 ml Documented By: TAL Torsemide (Torsemide 20 Mg Tablet) 20 mg PO DAILY [facility]; Protocol Last Admin: 01/11/24 08:07 Dose: 20 mg Documented By: TAL Labs 01/11/24 05:56 01/11/24 05:56 Labs: Laboratory Results - last 24 hr 01/11/24 05:56 Anion Gap 19 Estim Creat Clear Calc 11.5 Estimated GFR 12 Random Glucose 94 Calcium 9.2 Assessment and Plan (1) Fracture of femoral neck, left: Status: Acute (2) Immunosuppression due to drug therapy: Status: Acute (3) ESRD (end stage renal disease): Status: Acute Plan 73-year-old female with a PMH significant for?HTN, ESRD on HD Tue/Sat, granulomatosis with polyangiitis, and hx of recurrent UTIs who presents to the ED with?left hip pain secondary to mechanical fall. Pt will be admitted to the hospital for treatment and further evaluation of acute comminuted displaced left femoral neck fracture. 1.Left hip fracture status post ORIF postoperative day 2 -good pain control, hematocrit dropped but above transfusion threshold continue iron supplements Continue oxycodone for moderate pain and IV morphine for severe pain incentive spirometry, Colace 100 mg bedtime and MiraLax 17 g daily Physical therapy recommend acute rehab, patient was residing with son Eliquis 2.5 mg b.i.d. for anticoagulation 2.ESRD - HD Tue/Sat -continue sevelamer, torsemide -follow renal/divalent 3.HTN -continue Coreg good blood pressure control , follow BP 4.Granulomatosis with polyangiitis -continue prednisone Full Code Requires ongoing hospitalization for postoperative left hip management and safe disposition Quality Stroke Does the patient have a stroke diagnosis?: No VTE Prior VTE?: No VTE Risk Level:: Medical - moderate - high VTE Device Contraindication: N/A - Device Ordered VTE Drug Contraindication: Treatment Not Indicated
--- NOTE | 2024-01-11 15:36 | MHC.CM.PN ---
pt has accepted a bed at [facility] for friday
[2024-01-11 15:54] VITALS: BMI 20.8
[2024-01-11 16:00] VITALS: BP 123/57; PULSE 100; RESP 18; TEMP 37; O2SAT 97
[2024-01-11 20:00] VITALS: BP 135/59; PULSE 97; RESP 18; TEMP 36.3; O2SAT 98
[2024-01-11] MEDS: Docusate Sodium 100 MG CAPSULE PO (21:10)
[2024-01-12 03:48] VITALS: BP 131/63; PULSE 90; RESP 16; TEMP 36.3; O2SAT 94
--- NOTE | 2024-01-12 07:17 | P.CONNP_ITS ---
History of Present Illness Reason for Consult Consult date: 01/12/24 Chief Complaint Chief complaint: left hip fracture, ESRD on HD History of Present Illness Narrative: 73-year-old woman with PMH aggressive RPGN with apparent pulmonary involvement In terms of pulmonary nodules- atypical cavitary when associated with Anahy's granulomatosis ( biopsy-proven), HTN,, and hx of recurrent UTIs , Failed immunosuppresive therapy and now deemed ESRD on TS dialysis at [facility] under myself.who presents to the ED with?left hip pain secondary to mechanical fall found to have hip fracture - now s/p fixation [facility] Past Medical History Medical History AV fistula Vasculitis, ANCA positive Dependence on renal dialysis Lung nodules 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 Hyperlipidemia Hypertension Surgical History Surgical History H/O hernia repair History of partial hysterectomy Social History Social History Household Members: Children Household Members Other:: SON Housing: House Are you a primary customer care coordinator to a significant other at home: No Do you presently have visiting nurse or other home services: No Alcohol intake: never Patient Tobacco Use Status: Former Tobacco user Tobacco use type: Cigarette Years Smoked: 5 Advance Directives Date on File: 06/13/20 service: No Current occupational status: retired [employer] Allergies Allergy/AdvReac Type Severity Reaction Status Date / Time No Known Allergies Allergy Verified 01/09/24 11:20 Active Medications: Current Medications Acetaminophen (Acetaminophen 325 Mg Tablet) 650 mg PO Q6H PRN PRN Reason: Pain, Mild (Pain Scale 1-3), fever or headache Last Admin: 01/11/24 08:06 Dose: 650 mg Apixaban (Apixaban 2.5 Mg Tablet) 2.5 mg PO BID [facility] Last Admin: 01/11/24 21:10 Dose: 2.5 mg Calcium Carbonate (Calcium Carbonate 750 Mg Tab.Chew) 750 mg PO Q4H PRN PRN Reason: Heartburn Carvedilol (Carvedilol 6.25 Mg Tablet) 6.25 mg PO BID@0800,1700 [facility]; Protocol Last Admin: 01/11/24 16:56 Dose: 6.25 mg Docusate Sodium (Docusate Sodium 100 Mg Capsule) 100 mg PO BEDTIME [facility] Last Admin: 01/11/24 21:10 Dose: 100 mg Ferrous Sulfate (Ferrous Sulfate 324 Mg Tablet.) 648 mg PO DAILY@1200 [facility] Last Admin: 01/11/24 11:02 Dose: 648 mg Magnesium Hydroxide (Milk Of Magnesia 30 Ml Oral.Susp) 30 ml PO DAILY PRN PRN Reason: Constipation Melatonin (Melatonin 3 Mg Tablet) 6 mg PO BEDTIME PRN PRN Reason: Insomnia Morphine Sulfate (Morphine Sulfate 2 Mg/Ml Cartridge) 2 mg IVPUSH Q4H PRN; Protocol PRN Reason: Pain, Severe (Pain Scale 7-10) Multivitamins/Vitamin C (Multivitamin Tablet) 1 tab PO DAILY [facility] Last Admin: 01/11/24 08:06 Dose: 1 tab Ondansetron HCl (Ondansetron Hcl 4 Mg/2 Ml Vial) 4 mg IVPUSH Q8H PRN PRN Reason: Nausea and Vomiting Oxycodone HCl (Oxycodone Hcl Immed Release 5 Mg Tablet) 5 mg PO Q4H PRN PRN Reason: Pain, Moderate(Pain Scale 4-6) Last Admin: 01/10/24 01:22 Dose: 5 mg Polyethylene Glycol (Polyethylene Glycol 3350 17 Gm Powd.Pack) 17 gm PO DAILY [facility] Last Admin: 01/11/24 08:09 Dose: 17 gm Prednisone (Prednisone 5 Mg Tablet) 5 mg PO DAILY [facility] Last Admin: 01/11/24 08:05 Dose: 5 mg Sevelamer Carbonate (Sevelamer Carbonate Tablet 800 Mg Tablet) 800 mg PO TIDWM [facility] Last Admin: 01/11/24 16:57 Dose: 800 mg Sodium Chloride (0.9 % Sodium Chloride Flush 3 Ml Syringe) [facility] Last Admin: 01/11/24 21:10 Dose: 3 ml Torsemide (Torsemide 20 Mg Tablet) 20 mg PO DAILY [facility]; Protocol Last Admin: 01/11/24 08:07 Dose: 20 mg Home Medications ?Medication ?Instructions ?Recorded ?Confirmed ?Last Taken ?Type torsemide 20 mg tablet 20 mg PO DAILY 08/09/20 01/08/24 01/08/24 08:00 History carvedilol 6.25 mg tablet 1 tab PO BID@0800,1200 12/26/21 01/08/24 01/08/24 08:00 History ferrous sulfate 325 mg (65 mg 650 mg PO DAILY@1200 12/26/21 01/08/24 01/08/24 08:00 History iron) tablet lactobacillus combination no.9 4 4,000 mmu cells PO DAILY 07/24/22 01/08/24 01/08/24 08:00 History billion cell capsule (Adult 50 Plus Probiotic) prednisone 10 mg tablet 5 mg PO DAILY 07/24/22 01/08/24 01/08/24 08:00 History sevelamer carbonate 800 mg tablet 800 mg PO TID 01/01/23 01/08/24 01/08/24 10:30 History vitamin B complex-vitamin C-folic 1 tab PO DAILY 01/08/24 01/08/24 Unknown History acid 0.8 mg tablet (Nephro-Jese) Physical Exam Vital Signs: Last Vital Signs Temp 97.4 F 01/12/24 03:48 Pulse 90 01/12/24 03:48 Resp 16 01/12/24 03:48 BP 131/63 01/12/24 03:48 Pulse Ox 94 01/12/24 03:48 O2 Del Method Room Air 01/12/24 03:48 BMI result Body Mass Index 20.8 cvs: s1s2 Rs; cta ABd; soft Results Lab Results 01/11/24 05:56 01/11/24 05:56 Lab results: Chemistry 01/10/24 01/11/24 05:35 05:56 Sodium 141 139 Potassium 4.2 3.6 Carbon Dioxide 23 21 L BUN 58 H 34 H Creatinine 4.80 H* 3.70 H Calcium 9.2 D 9.2 Hematology 01/10/24 01/11/24 05:35 05:56 WBC 8.9 Hgb 10.8 L 9.7 L Plt Count 287 Assessment and Plan (1) ESRD (end stage renal disease): Status: Acute (2) Fracture of femoral neck, left: Qualifiers: Encounter type: initial encounter Fracture type: closed Qualified Code(s): S72.002A - Fracture of unspecified part of neck of left femur, initial encounter for closed fracture Status: Acute Plan ESR[facility] cont [facility] tonrsemide on non hd days - she still makes urine cont coreg, montior bp Procedures Date of Service Date of Service: 01/12/24
[2024-01-12 07:20] VITALS: BP 121/57; PULSE 80; RESP 16; TEMP 37.3; O2SAT 98
--- NOTE | 2024-01-12 07:33 | PM.PNORT ---
Subjective Subjective Date of Service: 01/12/24 Interval history: POD2 s/p LT hip lyle Patient is resting in the reclincer comfortably No overnight events Pain is managed No additional complaints Physical Exam Vital Signs: Vital Signs: Last Vital Signs Temp 99.1 F 01/12/24 07:20 Pulse 80 01/12/24 07:20 Resp 16 01/12/24 07:20 BP 121/57 L 01/12/24 07:20 Pulse Ox 98 01/12/24 07:20 O2 Del Method Room Air 01/12/24 07:20 BMI result Body Mass Index 20.8 Const: General: cooperative, healthy appearing and no acute distress Resp: Effort & Inspection: normal respiratory effort and able to speak in complete sentences Cardio: Rate: regular rate Peripheral pulses: Peripheral pulses 2+ throughout GI: Palpation (GI): Soft to palpation Skin: Lesions: no lesions Rashes: no rashes Extrem: Other: left hip dressing is c/d/i. Able to dorsi/plantar flex. Calf is supple and nontender. Sensation intact. Pedal pulse intact. Procedures Date of Service Date of Service: 01/12/24 Progress Note: A&P Assessment and plan (1) Fracture of femoral neck, left: Status: Acute Assessment and Plan: Continue pain mgmnt Continue Lovenox for dvt ppx Continue PT/OT for left hip lyle Dispo planning- PT/OT, pain mgmnt, rehab placement (2) Dependence on renal dialysis: Status: Acute (3) ESRD (end stage renal disease): Status: Acute Time Spent With Patient Time: Total time managing care of this patient today ____ minutes. Quality Stroke Does the patient have a stroke diagnosis?: No VTE Prior VTE?: No VTE Risk Level:: Medical - moderate - high VTE Device Contraindication: N/A - Device Ordered VTE Drug Contraindication: Treatment Not Indicated
[2024-01-12] MEDS: carvediloL 6.25 MG TABLET PO (08:21)
[2024-01-12] MEDS: Torsemide 20 MG TABLET PO (08:21)
[2024-01-12] MEDS: Apixaban 2.5 MG TABLET PO (08:21)
[2024-01-12] MEDS: Sevelamer Carbonate Tablet 800 MG TABLET PO (08:21)
[2024-01-12] MEDS: Multivitamin TABLET 1 TAB PO (08:22)
[2024-01-12] MEDS: polyethylene glycoL 3350 17 GM POWD.PACK PO (08:22)
[2024-01-12] MEDS: predniSONE 5 MG TABLET PO (08:22)
[2024-01-12] MEDS: 0.9 % Sodium Chloride Flush 3 ML SYRINGE IVFLUSH (08:33)
--- NOTE | 2024-01-12 10:23 | MHC.CM.PN ---
Per MD rounds patient medically cleared for dc to acute rehab. BLS transport scheduled for noon to [facility]. IMM delivered. RN, and patient aware.
--- NOTE | 2024-01-12 11:02 | PM.DS ---
DS: Providers Provider Date of Service: 01/12/24 Date of admission: 01/08/24 22:46 Primary care physician: DELPHINE Salvador Consults: 01/08/24 21:23 Consult to Orthopedics Stat Consulting Provider: [facility] Reason for consultation: Acute comminuted displaced fracture, left femoral neck Has provider been notified: Yes 01/08/24 22:10 Consult to Nephrology Routine Consulting Provider: [facility] Reason for consultation: ESRD on HS Tue/Sat DS: Diagnosis Discharge Diagnosis (1) Fracture of femoral neck, left: Status: Acute (2) Dependence on renal dialysis: Status: Acute (3) ESRD (end stage renal disease): Status: Acute DS: Summary Hospital Course Hospital Course: History of present illness: Date of Service: 01/08/24 Attending physician on admission: Antonio Epstein Chief Complaint: Left hip pain s/p fall at home Pt is a 73-year-old female with a PMH significant for?HTN, ESRD on HD e/Sat, granulomatous with polyangiitis, and hx of recurrent UTIs who presents to the ED with?left hip pain secondary to mechanical fall. Patient reports she was outside raking leaves when she stepped into a barrel to push the leaves down, became off balance, tripped, and fell down landing on her left hip. Denies head strike. Patient immediately felt pain in her left hip that radiated down her leg and found she was unable to move. Yelled out to a neighbor who contacted EMS. Patient also reports left leg numbness and tingling. No loss of bladder or bowel function. No saddle anesthesia. Denies lightheadedness or dizziness. No chest pain/pressure, palpitations. No fever, chills, nausea, vomiting, abdominal pain. Denies shortness or breath or difficulty breathing. Patient denies neck or upper back pain, or numbness or tingling to upper extremities. In the ED pt was hypertensive up to 157/73, vitals otherwise stable and WNL. Labs were grossly unremarkable and baseline for patient. No leukocytosis. Stable H&H. No significant electrolyte abnormalities. BUN 58 and creatinine 4.82, around baseline. Hepatic function WNL. X-ray of hip and pelvis found acute comminuted, displaced fracture of left femoral neck. CT of head negative for acute intracranial process. CT of cervical spine negative for acute fracture subluxation. However, found moderate degenerative changes in 5 mm mixed sclerotic and lucent lesion on C4 vertebral body. Pt was treated with acetaminophen, Ativan, and oxycodone 5 mg p.o.. Pt will be admitted to the hospital for treatment and further evaluation of acute comminuted displaced left femoral neck fracture. Hospital course: 73-year-old female with a PMH significant for?HTN, ESRD on HD Fri/Fri, granulomatosis with polyangiitis, and hx of recurrent UTIs who presents to the ED with?left hip pain secondary to mechanical fall and admitted to medical floor with a diagnosis of Aute comminuted displaced left femoral neck fracture. Acute Left hip fracture due to mechanical fall underwent left hip ORIF by Dr. Nichols, postoperative day 3 today, has good pain control on oxycodone and Tylenol as needed, hematocrit dropped but above transfusion threshold, seen by Physical therapy and they recommended acute rehab, for anticoagulation patient started on Eliquis on 01/09 for total 28 days ending on ,recommend to continue stool softeners and encourage incentive spirometry. In regard to end-stage renal disease recommend to continue hemodialysis on Tuesdays and Saturdays and continue sevelamer, and torsemide. Hypertension continue Coreg have good blood pressure control Granulomatosis with polyangiitis continue prednisone Time Attestation Discharge Coordination Time (in mins): 36 Quality: Safe Use of Opioids Does Pt have an Active Cancer Diagnosis on the Problem List?: No Quality: Stroke Does the patient have a stroke diagnosis?: No Physical Exam Vital Signs: Vital Signs: Last Vital Signs Temp 99.1 F 01/12/24 07:20 Pulse 80 01/12/24 07:20 Resp 16 01/12/24 07:20 BP 121/57 L 01/12/24 07:20 Pulse Ox 98 01/12/24 07:20 O2 Del Method Room Air 01/12/24 07:20 BMI result Body Mass Index 20.8 Const: Other: Gen: in no acute distress HEENT: sclera anicteric, moist mucus membranes Lungs: good air entry, clear bilaterally Heart: regular rate and rhythm, no murmurs Abd: soft, non-tender, non-distended, bowel sounds audible Ext: no edema Left hip dressing in place Skin: warm/well-perfused Neuro: alert and oriented x3, no focal findings Psych: appropriate affect DS: Data Data Completed and Pending Completed studies during hospitalization [Text1]: Procedures Drainage of Left Lower Lung Lobe, Via Natural or Artificial Opening Endoscopic, Diagnostic (06/13/20) Excision of Left Kidney, Percutaneous Approach, Diagnostic (06/13/20) Excision of Left Lower Lobe Bronchus, Via Natural or Artificial Opening Endoscopic, Diagnostic (06/13/20) Excision of Left Upper Lobe Bronchus, Via Natural or Artificial Opening Endoscopic, Diagnostic (06/13/20) Extraction of Left Main Bronchus, Via Natural or Artificial Opening Endoscopic, Diagnostic (06/13/20) Extraction of Right Main Bronchus, Via Natural or Artificial Opening Endoscopic, Diagnostic (06/13/20) Insertion of Infusion Device into Inferior Vena Cava, Percutaneous Approach (06/13/20) Insertion of Infusion Device into Superior Vena Cava, Percutaneous Approach (06/13/20) Insertion of Tunneled Vascular Access Device into Chest Subcutaneous Tissue and Fascia, Percutaneous Approach (06/13/20) Introduction of Other Therapeutic Substance into Respiratory Tract, Via Natural or Artificial Opening Endoscopic (06/13/20) Performance of Urinary Filtration, Intermittent, Less than 6 Hours Per Day (01/02/22) Pending studies at discharge: Pending at discharge 01/09/24 13:36 Surgical [PTH] Routine Discharge Plan Discharge Anticipated Discharge Date/Time: 01/12/24 07:30 Patient Disposition: Xfer Inpatient Rehab Fac Discharge Diagnosis: Left hip fracture status post ORIF End-stage renal disease on hemodialysis Referrals: [facility] [Outside] - 1 Week Leticia Mayo PA [Primary Care Provider] - 1 Week Discharge Medications: New acetaminophen 325 mg Tablet 650 mg PO Q6H PRN (Reason: Pain, Mild (Pain Scale 1-3), fever or headache) Qty: 30 0RF docusate sodium 100 mg Capsule 100 mg PO BEDTIME Qty: 30 0RF Eliquis 2.5 mg Tablet 2.5 mg PO BID Qty: 52 0RF oxycodone 5 mg Tablet 5 mg PO Q4H PRN (Reason: Pain, Moderate(Pain Scale 4-6)) Qty: 14 0RF Rx Instructions: Partial Fill upon patient request. Continued carvedilol 6.25 mg tablet 1 tab PO BID@0800,1200 ferrous sulfate 325 mg (65 mg iron) Tablet 650 mg PO DAILY@1200 prednisone 10 mg tablet 5 mg PO DAILY Nephro-Jese 0.8 mg tablet 1 tab PO DAILY sevelamer carbonate 800 mg tablet 800 mg PO TID torsemide 20 mg tablet 20 mg PO DAILY Adult 50 Plus Probiotic 4 billion cell capsule 4,000 mmu cells PO DAILY Rx Instructions: administer with a meal Discharge Orders: Discharge Order (Routine); Ordered 01/12/24 Ordered By: Álvaro Bennett Diet: Advance to usual diet Activity on Discharge: As tolerated Stand Alone Forms: Patient Portal Discharge page Print Language: Uzbek Care Plan Goals: Status post left hip surgery, continue pain medications analgesics and physical therapy Continue hemodialysis Health Concerns: esrd/hypertension/granulomatosis with polyangiitis Continue all home medications Plan of Treatment: Outpatient follow-up with Nephrology for continued hemodialysis Outpatient follow-up with orthopedic surgeon Dr Michel Nichols call for appointment in 2 weeks Assessment: As above
[2024-01-12] MEDS: Ferrous Sulfate 324 MG TABLET.DR 648 MG PO (11:45)
[2024-01-12 12:59] VITALS: BP 121/57; PULSE 80; O2SAT 98
== END 2024-01-12 12:20 | DRG 521 ==
LOC: HO.ED 21:03 → HO.EDOVER 22:58 → HO.IMC 01-09 00:41 → HO.S3 01-09 15:13
PROVIDERS: Orthopaedic Surgery; Admitting Provider Student in an Organized Health Care Education/Training Program; Emergency Provider Emergency Medicine Emergency Medical Services; PCP Physician Assistant; Visit Provider Hospitalist
PROC: 0SRS0JA Replacement of Left Hip Joint, Femoral Surface with Synthetic Substitute, Uncemented, Open Approach (ICD-10-PCS; CPT 27125; principal; 2024-01-09 12:00)
DX: S72.002A Fracture of unspecified part of neck of left femur, initial encounter for closed fracture (principal); N18.6 End stage renal disease; I12.0 Hypertensive chronic kidney disease with stage 5 chronic kidney disease or end stage renal disease; M31.31 Wegener's granulomatosis with renal involvement; W19.XXXA Unspecified fall, initial encounter; Z99.2 Dependence on renal dialysis; Z87.440 Personal history of urinary (tract) infections; Z87.891 Personal history of nicotine dependence; Z79.01 Long term (current) use of anticoagulants; Z79.52 Long term (current) use of systemic steroids; Z79.899 Other long term (current) drug therapy
CPT/HCPCS: 36415; 70450; 71045; 72125; 72170; 73502; 80048; 80053; 85014; 85018; 85025; 85027; 85610; 86850; 86900; 86901; 88305; 88311; 90999; 93005; 97162; 97165; 97530; 99285; C1776; J0690; J2003; J2060; J2250; J2704; J2795; J3010

== ENCOUNTER → 2024-01-08 15:35 | Outpatient (BNV) | payer MEDICARE, OTHER, SELFPAY | PROVIDERS: Emergency Provider Emergency Medicine Emergency Medical Services; PCP Physician Assistant; Visit Provider Radiology Diagnostic Radiology | DX: S72.002A Fracture of unspecified part of neck of left femur, initial encounter for closed fracture (principal) | CPT/HCPCS: 73502 ==

== ENCOUNTER 2024-01-08 22:46 | Outpatient (BNV) | payer MEDICARE, OTHER, SELFPAY | END 2024-01-08 23:33 | PROVIDERS: Admitting Provider Student in an Organized Health Care Education/Training Program; Emergency Provider Emergency Medicine Emergency Medical Services; PCP Physician Assistant; Visit Provider Internal Medicine | DX: R94.31 Abnormal electrocardiogram [ECG] [EKG] (principal) | CPT/HCPCS: 93010 ==

== ENCOUNTER → 2024-01-08 22:46 | Outpatient (BNV) | payer MEDICARE, OTHER, SELFPAY | PROVIDERS: Admitting Provider Student in an Organized Health Care Education/Training Program; Emergency Provider Emergency Medicine Emergency Medical Services; PCP Physician Assistant; Visit Provider Hospitalist | DX: S72.002A Fracture of unspecified part of neck of left femur, initial encounter for closed fracture (principal); N18.6 End stage renal disease; Z99.2 Dependence on renal dialysis | CPT/HCPCS: 99223; 99232; 99233; 99239 ==

== ENCOUNTER → 2024-01-08 22:46 | Outpatient (BNV) | payer MEDICARE, OTHER, SELFPAY | PROVIDERS: Admitting Provider Student in an Organized Health Care Education/Training Program; Emergency Provider Emergency Medicine Emergency Medical Services; PCP Physician Assistant; Visit Provider Physician Assistant | DX: S72.002A Fracture of unspecified part of neck of left femur, initial encounter for closed fracture (principal); Z99.2 Dependence on renal dialysis; N18.6 End stage renal disease | CPT/HCPCS: 27236; 99024; 99222; 99499 ==

== ENCOUNTER 2024-01-23 10:16 | Outpatient (AMB) | payer MEDICARE, OTHER, SELFPAY ==
--- NOTE | 2024-01-23 10:32 | A.OFFVIS_ITS ---
Intake Visit Reasons: PO- s/p LT hip lyle 01/09/24. NE Intake Note: Akanksha a 73 year old female who presents today for a post operative visit s/p left hip lyle, DOS 01/09/24 NE. Patient reports she is doing well, states having pain in her lower back. Allergies No Known Allergies Allergy (Verified 01/23/24 10:38) Medication List - Last Reconciled 01/23/24 by Jt Butler PA-C acetaminophen 650 mg (2 x 325 mg) PO Q6H PRN apixaban (Eliquis) 2.5 mg PO BID B complex-vitamin C-folic acid 0.8 mg (Nephro-Jese) 1 tab PO DAILY carvedilol 1 tab PO BID@0800,1200 docusate sodium 100 mg PO BEDTIME ferrous sulfate 650 mg PO DAILY@1200 lactobacillus combination no.9 (Adult 50 Plus Probiotic) 4,000 mmu cells PO DAILY oxycodone 5 mg PO Q4H PRN prednisone 5 mg PO DAILY sevelamer carbonate 800 mg PO TID torsemide 20 mg PO DAILY HPI HPI PO- s/p LT hip lyle 01/09/24. NE: Details: 73-year-old female who returns to the office today for post-op left hip hemiarthroplasty, 01/09/[address] Nichols. She states she has pain in her lower back however she is doing well otherwise. She has been working on home physical therapy for her hip. She ambulates with a walker. She has no other concerns today. [facility] Medical History (Updated 01/20/24 @ 00:01 by Chang Stiles) AV fistula Vasculitis, ANCA positive Dependence on renal dialysis Lung nodules 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 Hyperlipidemia Hypertension Surgical History H/O hernia repair History of partial hysterectomy Social History Household Members: Children Household Members Other:: SON Housing: House Are you a primary small animal caretaker to a significant other at home: No Do you presently have visiting nurse or other home services: No Alcohol intake: never Patient Tobacco Use Status: Former Tobacco user Tobacco use type: Cigarette Years Smoked: 5 Advance Directives Date on File: 06/13/20 service: No Current occupational status: retired Review of Systems Const All systems reviewed & are unremarkable except as noted in HPI and below Physical Exam Extrem Other: Left hip: Incision clean, dry and intact. No redness or drainage. No swelling. No pain with ROM or hip flexion. NVI. Results Reviewed Results Reviewed: Xrays were obtained in the office today and personally reviewed by me of the eft hip show intact prosthesis Assessment & Plan Assessment & Plan (1) Fracture of femoral neck, left: Code(s): S72.002A - Fracture of unspecified part of neck of left femur, initial encounter for closed fracture Category: Medical Qualifiers: Encounter type: initial encounter Fracture type: closed Qualified Code(s): S72.002A - Fracture of unspecified part of neck of left femur, initial encounter for closed fracture Plan Tiago removed, steri strips applied. She will begin contine PT to continue working on Gait training, ROM and strength. She will f/u in 4 weeks, sooner if needed. Orders: Orders XR hip LT min 2V 01/23/24 M25.552 - Pain in left hip Patient Instructions: Scribed for Jt Butler PA-C, by Adrian Brooks biomedical field service engineer, on 01/23/2024 at 10:00 AM EST.? I, Jt Butler PA-C, have personally reviewed and agree with the information entered by the scribe. Coding Level of Care Code Global (96908) Diagnoses Fracture of femoral neck, left S72.002A Encounter type: initial encounter Fracture type: closed
== END 2024-01-23 11:03 | disposition home or self-care (01) ==
PROVIDERS: PCP Physician Assistant; Visit Provider Physician Assistant
DX: S72.002A Fracture of unspecified part of neck of left femur, initial encounter for closed fracture (principal)
CPT/HCPCS: 99024

== ENCOUNTER 2024-01-23 12:47 | Outpatient (REF) | payer MEDICARE, OTHER, SELFPAY | END 2024-01-23 12:48 | disposition home or self-care (01) | LOC: HO.HOSX 12:47 | PROVIDERS: Visit Provider Physician Assistant | DX: M25.552 Pain in left hip (principal); S72.002A Fracture of unspecified part of neck of left femur, initial encounter for closed fracture | CPT/HCPCS: 73502; 99212 ==

== ENCOUNTER 2024-02-18 06:06 | Outpatient (REF) | payer MEDICARE, OTHER, SELFPAY | END 2024-02-18 06:07 | disposition home or self-care (01) | LOC: HO.HOSX 06:06 | PROVIDERS: Visit Provider Physician Assistant | DX: M25.552 Pain in left hip (principal) | CPT/HCPCS: 73502; 99212 ==

== ENCOUNTER 2024-02-18 13:45 | Outpatient (AMB) | payer MEDICARE, OTHER, SELFPAY ==
--- NOTE | 2024-02-18 13:53 | MHC.OFFVIS ---
Intake Visit Reasons: PO- s/p LT hip lyle 01/09/24. NE Intake Note: Akanksha a 73 year old female who presents today for a post operative visit s/p left hip lyle, DOS 01/09/24 NE. X-rays updated. Patient reports she is doing well, states her pain has been tolerable. States difficulty with sleeping on her back, tossing and turning through the night. She uses a cane with ambulation. Allergies No Known Allergies Allergy (Verified 02/18/24 13:53) Medication List - Last Reconciled 02/18/24 by Jt Butler PA-C acetaminophen 650 mg (2 x 325 mg) PO Q6H PRN apixaban (Eliquis) 2.5 mg PO BID B complex-vitamin C-folic acid 0.8 mg (Nephro-Jees) 1 tab PO DAILY carvedilol 1 tab PO BID@0800,1200 docusate sodium 100 mg PO BEDTIME ferrous sulfate 650 mg PO DAILY@1200 lactobacillus combination no.9 (Adult 50 Plus Probiotic) 4,000 mmu cells PO DAILY prednisone 5 mg PO DAILY sevelamer carbonate 800 mg PO TID torsemide 20 mg PO DAILY HPI HPI PO- s/p LT hip lyle 01/09/24. NE: Details: 73-year-old female who returns to the office today for post-op left hip hemiarthroplasty, 01/09/[address] Nichols. She states she has tolerable pain in her hip that is aggravated with sleeping on her back, tossing and turning through the night. She uses a cane for ambulation. She has been working on her exercises as instructed. She is doing well otherwise and has no concerns today. [facility] Medical History (Updated 01/20/24 @ 00:01 by Chang Stiles) AV fistula Vasculitis, ANCA positive Dependence on renal dialysis Lung nodules 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 Hyperlipidemia Hypertension Surgical History H/O hernia repair History of partial hysterectomy Social History Household Members: Children Household Members Other:: SON Housing: House Are you a primary rn care transition to a significant other at home: No Do you presently have visiting nurse or other home services: No Alcohol intake: never Patient Tobacco Use Status: Former Tobacco user Tobacco use type: Cigarette Years Smoked: 5 Advance Directives Date on File: 06/13/20 service: No Current occupational status: retired Review of Systems Const All systems reviewed & are unremarkable except as noted in HPI and below Physical Exam Extrem Other: Left hip: Incision well healed. No pain ROM of hip. No pain with hip flexion. Calf supple, nontender. NVI. Results Reviewed Results Reviewed: Xrays were obtained in the office today and personally reviewed by me of the t hip show intact prosthesis Assessment & Plan Assessment & Plan (1) Fracture of femoral neck, left: Code(s): S72.002A - Fracture of unspecified part of neck of left femur, initial encounter for closed fracture Category: Medical Qualifiers: Encounter type: initial encounter Fracture type: closed Qualified Code(s): S72.002A - Fracture of unspecified part of neck of left femur, initial encounter for closed fracture Plan She will continue to work on her home exercises program. She will increase activities as tolerated and make appointment in 6 weeks with new x-rays. If she is doing well she can cancel the appointment, otherwise follow-up as needed. Orders: Orders XR hip LT min 2V Today M25.552 - Pain in left hip Patient Instructions: Scribed for Jt Butler PA-C, by Adrian Brooks auditor medical claims, on 02/18/2024 at 1:45 PM EST.? I, Jt Butler PA-C, have personally reviewed and agree with the information entered by the scribe. Coding Level of Care Code Global (13923) Diagnoses Fracture of femoral neck, left S72.002A Encounter type: initial encounter Fracture type: closed
== END 2024-02-18 14:19 | disposition home or self-care (01) ==
PROVIDERS: PCP Physician Assistant; Visit Provider Physician Assistant
DX: S72.002A Fracture of unspecified part of neck of left femur, initial encounter for closed fracture (principal)
CPT/HCPCS: 99024

== ENCOUNTER 2024-04-01 12:50 | Outpatient (AMB) | payer MEDICARE, OTHER, SELFPAY ==
--- NOTE | 2024-04-01 13:13 | A.OFFVIS_ITS ---
Intake Visit Reasons: 6wk f/u Lt hip lyle -W/ xry Intake Note: Akanksha a 73 year old female who presents today for a post operative visit s/p left hip lyle, DOS 01/09/24 NE. Patient reports she is doing well, states her pain has been tolerable. She wakes up with aches from sleeping on her back, tossing and turning through the night. She is no longer using a cane. Allergies No Known Allergies Allergy (Verified 04/01/24 13:15) Medication List - Last Reconciled 04/01/24 by DELPHINE Chris-Ranjit acetaminophen 650 mg (2 x 325 mg) PO Q6H PRN apixaban (Eliquis) 2.5 mg PO BID B complex-vitamin C-folic acid 0.8 mg (Nephro-Jese) 1 tab PO DAILY carvedilol 1 tab PO BID@0800,1200 docusate sodium 100 mg PO BEDTIME ferrous sulfate 650 mg PO DAILY@1200 lactobacillus combination no.9 (Adult 50 Plus Probiotic) 4,000 mmu cells PO DAILY prednisone 5 mg PO DAILY sevelamer carbonate 800 mg PO TID torsemide 20 mg PO DAILY HPI HPI 6wk f/u Lt hip lyle -W/ xry: Details: 73-year-old female returns to the office today status post left hip hemiarthroplasty with Dr. Nichols 6 weeks ago. She states she is doing well however she has some discomfort in her low buttock region especially with lying down. She has not done formal physical therapy. [facility] Medical History (Updated 01/20/24 @ 00:01 by Chang Stiles) AV fistula Vasculitis, ANCA positive Dependence on renal dialysis Lung nodules 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 Hyperlipidemia Hypertension Surgical History H/O hernia repair History of partial hysterectomy Social History Household Members: Children Household Members Other:: SON Housing: House Are you a primary childcare center director to a significant other at home: No Do you presently have visiting nurse or other home services: No Alcohol intake: never Patient Tobacco Use Status: Former Tobacco user Tobacco use type: Cigarette Years Smoked: 5 Advance Directives Date on File: 06/13/20 service: No Current occupational status: retired Review of Systems Const All systems reviewed & are unremarkable except as noted in HPI and below Physical Exam Extrem Other: Left hip: Incision well healed. No pain ROM of hip. No pain with hip flexion. Calf supple, nontender. NVI. Results Reviewed Results Reviewed: Xrays were obtained in the office today and personally reviewed by me of the t hip show intact prosthesis Assessment & Plan Assessment & Plan (1) Fracture of femoral neck, left: Code(s): S72.002A - Fracture of unspecified part of neck of left femur, initial encounter for closed fracture Category: Medical Qualifiers: Encounter type: initial encounter Fracture type: closed Qualified Code(s): S72.002A - Fracture of unspecified part of neck of left femur, initial encounter for closed fracture Plan: She is functioning quite well status post hemiarthroplasty. She will continue to increase activities as tolerated I did recommend a course of physical therapy to work on glute strengthening which she declined. I did give her a home exercise program to work on. She will see us back if symptoms arise or there is any concerns otherwise she will follow up as needed. Orders: Orders XR hip LT min 2V Today M25.552 - Pain in left hip Coding Level of Care Code Global (74000) Diagnoses Fracture of femoral neck, left S72.002A Encounter type: initial encounter Fracture type: closed
--- OUTSIDE RECORDS SUMMARY | 2024-04-01 15:10 | XMS_ITS | Data Portability ---
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 This was an opportunity to assess your overall well being including your ability to care for yourself, your mobility, memory, mental health, as well as your safety. With advancing age, it is important to assign someone in your life as your Health Care Proxy (HCP). This person should know what is important to you and what your wishes are for medical procedures if you cannot communicate your wishes yourself (severe illness, unconsciousness) . We discussed having a completed Health Care Proxy form today. In addition, today we started a conversation about your End of Life wishes. These conversations will continue over the years. Please consider reading the book, Being Mortal by Ravindra Aburto to help frame future conversations. We discussed the purpose of a MOLST form (Medical Orders for Life Sustaining Treatment) and completed this form if appropriate per your wishes. Vision and Hearing are senses that are critically important as we age. When impaired, they can contribute to memory loss, falls, and make it harder to drive, talk to family and friends, and engage in the world. Please get your vision checked yearly and your hearing checked when you start to notice hearing loss. We discussed approaches to lowering your risk of heart disease and stroke . Your blood pressure . Your cholesterol . We discussed cancer screening you may need as well as vaccines to prevent infections. Colon Cancer : Your risk of colon cancer is . Due for colorectal screening:. If you are not planning to have a colonoscopy please screen with stool cards yearly. Breast Cancer : Breast Cancer Screening (mammography). Next mammogram due: . Cervical Cancer Screening (pap test). Next pap due: . Prostate Cancer : PSA testing for ages 55-69 risks and benefits discussed . Influenza Vaccine : Flu shot yearly. Tetanus Vaccine : Every 10 years. Due: . The following vaccines are available from your pharmacy: Pneumonia Vaccine : PCV20: once after age 65. Shingles Vaccine : 2 shots after age 50. Covid Vaccine : Make sure you have received the most up to date covid vaccine. Your personal health goal for the year is: odinis Not available 12/03/2023 09:08:16 Plan of Treatment Reminders Order Date Submit Date Provider Last Modified By Organization Details Last Modified Time Details Appointments Follow Up, 2024 11:30A M DELPHINE Salvador Not available Not available Not available Wellness Visit 2024 02:30P M DELPHINE Salvador Not available Not available Not available Lab None recorded. Referral urologist referral - Recurrent UTIs, usually S to Bactrim; this is her 3rd UTI this year. Seems worse since starting dialysis - would like female provider. 2022 023 [email or web address] Trena Ferrari [address] [place], [address], 12/18/2022 09:46:41 Procedures None recorded. Surgeries None recorded. Imaging US, head + neck, soft tissue 2023 024 [facility] (Imaging), [address] [place], [address], 08/20/2023 19:40:32 Medication Orders Bactrim DS 800 mg-160 mg tablet 2022 023 [email or web address] [facility] [id number] ([facility] [place] [facility]), [address] [facility], [place], [id number], 09/05/2023 14:30:01 triamcino lone acetonide 0.1 % topical cream 2023 024 kathia Franz [id number] ([facility] [place] [facility]), [address], [place], [id number], 01/23/2024 12:51:50 Patient TargetsNo targets recorded. Patient Instructions Encounter Date Encounter Id Patient Instructions Last Modified By Organization Details Last Modified Time 12/03/2023 [id number] After a discussi on of treatment options, which included consideration of best practices and patient preferences, the following treatment plan and objectives were adopted: Vitamin D and, Calcium rich diet, exercise daily, resistance training twice per week, Mediterranean diet reviewed. [email or web address] Not available 12/03/2023 13:23:51 Reason for Referral Urologist Referral for Recur rent urinary tract infection Recurrent UTIs, usually S to Bactrim; this is her 3rd UTI this year. Seems worse since starting dialysis - would like female provider. Referring Physician: Ashley Mckeon, Family Medicine, Encounter Date: 12/11/2022 Results Created Date Observation Date Name Description Value Unit Range Abnormal Flag Note LastModifiedBy Organization Detail LastModifiedTime 08/25/1908/25/2023 HGB A1C hemoglobin A1C 5.4 % 4.8-6. 0 Goal: <7% in Patie nts with Diabe ivana An A1c betwe en 5.7-6 .4% is ident ified as pre-d iabet es and sugge sts risk for progr essio n to diabe ivana Two a1c value s of 6.5% or highe r is consi stent with a diagn osis of diabe ivana but may need furth er confi rmati on Not Available [address], [address], 08/25/2023 13:00:49 08/25/19 24 08/25/2023 HGB A1C estimated average glucose 108.3 mg/dL Not Available [address], [address], 08/25/2023 13:00:49 08/20/19 24 08/20/2023 US, head + neck, soft tissu e CLINIC AL HISTOR Y: Left-s ided neck mass TECHNI QUE: 2D Sonogr aphy of the neck perfor med. COMPAR SRINIVASAN: None. FINDIN GS: The left subman dibula r gland is visibl e in the area of the patien t's lump. It is measur ed at 3.2 x 1.1 x 3.6 cm. For compar srniivasan the right subman dibula r gland is 3.0 x 1.1 x 4.4 cm. No suspic ious mass or discre te abnorm ality is seen. There is no lympha denopa thy. IMPRES MINESH: The patien t's lump appear s to corres pond with the left subman dibula r gland. No sonogr aphic abnorm ality is identi fied. Readin g Physic lori: Michelle Armstrong ms [email or web address] [facility] (Imaging) [address] [place] [address] , [place], [address], 08/21/2023 13:12:34 09/19/19 24 08/20/2023 MAMMO , scree raymon No observ ation record ed. [address] [facility] [address] [place], [address], 09/19/2023 10:52:29 12/12/19 24 12/05/2023 US, renal No observ ation record ed. [address], [address], 12/15/2023 18:27:16 01/08/20 24 01/08/2024 XR, hip No observ ation record ed. [address], [address], 01/16/2024 14:07:37 01/08/20 24 01/08/2024 CT, cervi ed spine No observ ation record ed. [address] [place], [address], 01/16/2024 14:07:37 01/08/20 24 01/08/2024 CT, cervi ed spine No observ ation record ed. [address] [place], [address], 01/16/2024 14:07:38 01/09/20 24 01/08/2024 XR, chest No observ ation record ed. [address] [place], [address], 01/16/2024 14:07:38 01/10/2001/10/2024 XR, pelvi s No observ ation record ed. [facility] [address] [place], [address], 01/16/2024 14:07:38 Result Notes None recorded. Problems Name Problem SNOMED Code Status Onset Date Resolution Date Notes Provider Name and Address Organization Details Recorded Time Benign essentia l hyperten minesh 5918089 Active Not Available [facility] 3 13:47:34 Essentia l hyperten minesh 69233104 Active Not Available [facility] 3 13:47:35 Common cold 07121119 Completed 01/27/2013 Not Available [facility] 3 02:00:30 Motion sickness 52238045 Active Not Available [facility] 3 13:47:35 Diaphrag matic hernia 54446876 Active 2008 Not Available [facility] 3 13:47:35 Benign neoplasm of large intestin e 40461678 Active 2008 Not Available [facility] 3 13:47:35 Chest pain 36485589 Completed 200801/27/2013 Not Available [facility] 3 02:01:46 Knee pain Active Not Available [facility] 3 13:47:35 Hyperlip idemia 29243311 Active 2018 Not Available [facility] 3 13:47:35 Degenera tive disorder of macula 941389452 Active 2019 Not Available [facility] 3 13:47:35 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 684995400 Active 2020 Not Available [facility] 3 13:47:35 Hypercal cemia 56878946 Active 2021 Per d/c summary Mack Not Available [facility] 3 13:47:35 Acute-on -chronic renal failure 684159576 Active 2021 Per d/c summary Mack; lists renal disease stage V Not Available [facility] 3 13:47:34 Chronic kidney disease stage 5 585025050 Active 2021 GFR = 9 on 12/25/21 Not Available [facility] 3 13:47:35 Dialysis procedur e Active 2021 on dialysis per Marguerite Mayo note 02/08/22 Not Available [facility] 3 13:47:34 End-stag e renal disease 78118359 Active 2022 Not Available [facility] 3 13:47:35 Fracture of neck of femur 7163280 Active 2023 [facility], surgical correcti on Grecia Garcia RN BSN [facility] 4 14:50:28 Problem Notes None recorded. Procedures Surgical History Date Name Laterality Status Provider Name and Address Organization Details Recorded Time 01/09/20 partial left hip replacement by prosthesis completed Grecia Garcia RN BSN [facility] 01/14/2024 14:18:38 01/09/20 24 open reduction of fracture with internal fixation completed Tracey Canales RN [facility] 01/23/2024 12:01:13 12/03/19 24 Medicare Wellness Visit completed Ilana Turner MA [facility] 12/03/2023 09:08:16 12/03/19 24 Cardiovascular disease risk reduction counseling completed Nico Mayo, DELPHINE [address] [place] [address], [address], [facility] 12/03/2023 13:23:20 12/03/19 24 Advanced Care Planning completed Nico Mayo, DELPHINE [address] [place], [address], [facility] 12/03/2023 13:01:54 11/30/19 23 Medicare Wellness Visit completed Ilana Turner MA [facility] 11/29/2022 14:37:36 04/09/19 22 Medicare Wellness Visit completed Cari Hicks MA [facility] 04/09/2021 15:57:28 04/09/19 22 Alcohol use screening completed Cari Hicks [facility] 04/09/2021 15:57:28 04/09/19 22 Cardiovascular disease risk reduction counseling completed Cari Hicks [facility] 04/09/2021 15:57:28 01/26/20 21 Diabetes Education completed Tracey Canales RN [facility] 01/25/2021 14:41:58 01/19/20 21 Glucose Meter Teaching completed Enzo Antunez RN [facility] 01/18/2021 14:34:01 10/31/19 21 angioplasty of renal artery completed Mera Weiss [facility] 11/02/2020 11:56:08 05/13/19 20 Medicare Wellness Visit completed Pema Emery Gricelda [facility] 05/13/2019 14:55:20 05/13/19 20 prevention-cardiov ascular risk reduction counseling completed Pema Emery [facility] 05/13/2019 14:55:20 05/13/19 20 prevention-annual alcohol misuse screening completed Pema Emery [facility] 05/13/2019 14:55:20 04/23/19 19 Medicare Wellness Visit completed Haley hSields [facility] 04/23/2018 13:49:42 01/30/20 17 Medicare Wellness Visit completed Cari Hicks [facility] 01/29/2017 11:18:50 04/08/19 17 [address]: Therapeutic Exercise completed Heather Amato, PT [address] [place], [address], [facility] 04/08/2016 13:56:44 04/08/19 17 Treatment and Advice completed Heather Amato, PT [address] [place], [address], [facility] 04/08/2016 13:52:10 03/25/19 17 Physical Activity Counselling completed Heather Amato, PT [address] [place], [address], [facility] 03/25/2016 22:21:15 03/25/19 17 [id number]: PT Eval, Moderate Complexity completed Heather Amato, PT [address] [place], [address], [facility] 03/25/2016 22:21:11 03/25/19 17 Treatment and Advice completed Heather Amato, PT [address] [place], [address], [facility] 03/25/2016 13:04:54 12/25/19 16 CCM - Health Assessment and Education completed Radha Chu MA [facility] 12/25/2015 10:42:52 12/11/19 16 Medicare Wellness Visit completed Cari Hicks MA [facility] 12/11/2015 09:46:08 12/02/19 09 completed Not Available [facility] 01/24/2011 06:05:52 12/02/19 09 completed Not Available [facility] 01/24/2011 06:05:52 repair of inguinal hernia completed DELPHINE Salvador [address] [place], [address], [facility] 02/08/2022 14:16:16 Total Hysterectomy completed Not Available [facility] 01/24/2011 06:06:16 Imaging Results Imaging Date Name Status LastModified by Organiz ation Details LastModified Time 08/20/2023 [facility] head + [email or web address] [address] [place], [address], 08/21/2023 13:12:34 08/20/2023 MAMMO, screening completed [address] [facility] [address] [place] [address] [place], [address], 09/19/2023 10:52:29 12/05/2023 US, renal completed [address], [address], 12/15/2023 18:27:16 01/08/2024 XR, hip completed [address], [address], 01/16/2024 14:07:37 01/08/2024 CT, cervical spine completed [address], [address], 01/16/2024 14:07:37 01/08/2024 CT, cervical spine completed [address], [address], 01/16/2024 14:07:38 01/08/2024 XR, chest completed [address], [address], 01/16/2024 14:07:38 01/10/2024 XR, pelvis completed [address], [address], 01/16/2024 14:07:38 Procedure Notes None recorded. Medical Equipment None Reported. Allergies No known drug allergies Medications Name Sig Start Date Stop Date Status Note LastModified by Organization Details LastModified Time tolterodi ne ER 2 mg capsule,e xtended release 24 hr TAKE 1 CAPSULE BY MOUTH EVERY DAY 09/04 completed not taking 08/13/23 oad Not Available Not Available Not Available amoxicill in 500 mg capsule TAKE 1 CAPSULE THREE TIMES A DAY 12/24 completed Not Available Not Available Not Available clonidine HCl 0.1 mg tablet TAKE 1 TABLET BY MOUTH TWICE A DAY 11/08 completed Not Available Not Available Not Available acetamino phen 325 mg tablet Take 2 tablets every 8 hours by oral route as needed. 2023 active per d/c summary [facility] 01/22/24 Not Available Not Available Not Available carvedilo l 6.25 mg tablet TAKE 1 TAB BY MOUTH IN THE MORNING AND IN THE EVENING WITH MEALS active Not Available Not Available No t Available prednison e 10 mg tablet Take 1 tablet every day by oral route as directed . 01/07 completed 1tab/day 11/08/21; dosage change Not Available Not Available Not Available desoximet asone 0.25 % topical cream PRN 11/08 completed PRN Not Available Not Available Not Available torsemide 20 mg tablet TAKE 1 TABLET BY MOUTH DAILY active Not Available Not Available No t Available atorvasta tin 10 mg tablet TAKE 1 TABLET BY MOUTH EVERY DAY 11/08 completed Not Available Not Available Not Available sulfameth oxazole 400 mg-trimet hoprim 80 mg tablet Take 1 tablet by mouth three times weekly on Mon, Wed and Sat 04/27 completed Finished coursed 08.30.20 AAS Not Available Not Available Not Available citalopra m 10 mg tablet TAKE 1 TABLET BY MOUTH EVERY DAY 12/10 completed Not Available Not Available Not Available valacyclo vir 1 gram tablet TAKE 1 TABLET BY MOUTH THREE TIMES A DAY FOR 7 DAYS 09/04 completed not taking 11/29/22 oad Not Available Not Available Not Available cephalexi n 250 mg capsule TAKE 1 CAPSULE BY MOUTH DAILY FOR 30 DAYS 04/14 completed Not Available Not Available Not Available Raquel Bradshaw 28 gauge 11/08 completed Not Available Not Available Not Available ondansetr on HCl 4 mg tablet daily 11/08 completed not taking 07/05/21 am Not Available Not Available Not Available prednison e 20 mg tablet TAKE 3 TABLETS BY MOUTH EVERY MORNING 10/26 completed Decrease d to 10mg TID 08/30/20 AAS Not Available Not Available Not Available prednison e 5 mg tablet TAKE 1 TABLET BY MOUTH DAILY active Not Available Not Available No t Available clobetaso l 0.05 % topical cream active Not Available Not Available Not Available Renagel 800 mg tablet Take 1 tablet twice a day by oral route as directed . 12/11 completed duplicat e Not Available Not Available Not Available meclizine 12.5 mg tablet TAKE ONE TABLET BY MOUTH NEEDED FOR DIZZINES S 12/11 completed not taking 11/29/22 oad Not Available Not Available Not Available amlodipin e 2.5 mg tablet 01/25 completed Not Available Not Available Not Available levofloxa lonnie 250 mg tablet TAKE 1 TABLET BY MOUTH EVERY DAY FOR 5 DAYS 09/04 completed not taking 08/13/23 oad Not Available Not Available Not Available amlodipin e 5 mg tablet TAKE 1 TABLET BY MOUTH EVERY DAY active Not Available Not Available No t Available triamcino lone acetonide 0.1 % topical cream APPLY THIN LAYER TOPICALL Y TO THE AFFECTED AREA TWICE DAILY. MAX OF 2 WEEKS active not using 12/03/23 oad/no longer using ML 01/23/24 Not Available Not Available Not Available amoxicill in 500 mg tablet TAKE 1 TABLET BY MOUTH TWICE DAILY FOR 7 DAYS 04/03 completed Not Available Not Available Not Available carvedilo l 3.125 mg tablet TAKE 1 TABLET BY MOUTH TWICE A DAY WITH MEALS 11/08 completed Not Available Not Available Not Available ondansetr on 8 mg disintegr ating tablet PLACE 1 TABLET TWICE A DAY BY TRANSLIN GUAL ROUTE FOR 5 DAYS. active not takin- as needed at dialysys 11/29/22 oad 12/03/23 oad; no longer taking JML 01/23/24 Not Available Not Available Not Available ketorolac 0.5 % eye drops INSTILL 1 DROP IN LEFT EYE THREE TIMES A DAY FOR 3 WEEKS FOLLOWIN G SURGERY ON 11/15/2112/25 completed Not Available Not Available Not Available mycopheno late mofetil 500 mg tablet 11/08 completed No taking 04/09/21 AAS Not Available Not Available Not Available sodium bicarbona te 650 mg tablet 04/09 completed Not taking 01/25/21 AAS Not Available Not Available Not Available amlodipin e 10 mg tablet TAKE 1 TABLET BY MOUTH 1 TIME EACH DAY. 12/11 completed not taking 11/29/22 oad Not Available Not Available Not Available cephalexi n 500 mg capsule Take 1 capsule every 8 hours by oral route for 5 days. 04/03 completed Not Available Not Available Not Available simvastat in 20 mg tablet 1 po qd active Not Available Not Available Not Available ferrous sulfate 325 mg (65 mg iron) tablet Take 2 tablets every day by oral route as directed . 2021 active Per d/c summary Mack Not Available Not Available Not Available Gentle Laxative (bisacody l) 5 mg tablet,de layed release TAKE 4 TABLETS BY MOUTH WITH 8 0Z OF WATER ONCE THE DAY BEFORE PROCEDUR E 11/02 completed Not Available Not Available Not Available docusate sodium 100 mg capsule Take 1 capsule twice a day by oral route. 2023 active per d/c summary [facility] 01/22/24 Not Available Not Available Not Available hydrochlo rothiazid e 25 mg tablet Take 0.5 tablets every day by oral route. 2009 active Not Available Not Available Not Avai lable furosemid e 20 mg tablet 11/08 completed Not taking 03/22/21 AAS Not Available Not Available Not Available gabapenti n 100 mg capsule TAKE 1 CAPSULE BY MOUTH IN THE MORNING AND 1 CAPSULE IN THE EVENING. 11/08 completed not taking 07/05/21 am Not Available Not Available Not Available ergocalci ferol (vitamin D2) 1,250 mcg (50,000 unit) capsule TAKE 1 CAPSULE BY MOUTH ONCE A MONTH 09/04 completed 04/14/23- states no longer taking Not Available Not Available Not Available fluocinol one 0.01 % topical solution 11/11 completed Not Available Not Available Not Available Transderm -Scop 1 mg over 3 days transderm al patch APPLY ONE PATCH TOPICALL Y BEHIND ONE EAR EVERY 72 HOURS DIRECTED 01/21 completed Not Available Not Available Not Available lisinopri l 10 mg-hydroc hlorothia zide 12.5 mg tablet Take 1 tablet every day by oral route. 2010 active Not Available Not Available Not Avai lable estradiol 0.01% (0.1 mg/gram) vaginal cream APPLY DIME SIZED AMOUNT WITH FINGERTI P TO VAGINA AND URETHRA EVERY NIGHT AT BEDTIME 09/04 completed not using 08/13/23 oad Not Available Not Available Not Available Ativan 0.5 mg tablet Take 1 tablet 3 times a day by oral route. 2009 active Not Available Not Available Not Avai lable Blood Pressure Kit Use as directed 01/25 completed Not Available Not Available Not Available lisinopri l 2.5 mg tablet TAKE 1 TABLET BY MOUTH EVERY DAY 09/04 completed not taking 08/13/23 oad Not Available Not Available Not Available glipizide 5 mg tablet Take 1/2 tablet once daily 11/08 completed Not Available Not Available Not Available amoxicill in 875 mg-potass ium clavulana te 125 mg tablet TAKE 1 TABLET BY MOUTH EVERY 12 HOURS FOR 5 DAYS 06/26 completed Not taking at this time 06/26/22 JF Not Available Not Available Not Available oxycodone 5 mg tablet 12/11 completed not taking 11/29/22 oad Not Available Not Available Not Available Bactrim DS 800 mg-160 mg tablet Take 1 tablet every 12 hours by oral route as directed for 5 days. 09/04 completed not taking 08/13/23 oad Not Available Not Available Not Available Premarin 0.625 mg/gram vaginal cream INSERT 0.5 APPLICAT ORSFUL EVERY DAY BY VAGINAL ROUTE FOR 14 DAYS. 09/04 completed not using 08/13/23 oad Not Available Not Available Not Available Alcohol Wipes Use twice daily as directed for monitori ng glucose, Dx Code N18.5 2020 active Not Available Not Available Not Avai lable Nephro-Vi te 0.8 mg tablet TAKE 1 TABLET BY MOUTH EVERY DAY active Not Available Not Available No t Available nitrofura ntoin monohydra te/macroc rystals 100 mg capsule TAKE 1 CAPSULE BY MOUTH 2 TIMES A DAY FOR 7 DAYS MUST ADMINIST ER WITH A MEAL/THERON D 09/04 completed not taking 08/13/23 oad Not Available Not Available Not Available Prilosec active generic( one a day) Not Available Not Available Not Available PreserVis ion AREDS Take one tablet by mouth twice daily as directed 2023 active per d/c summary [facility] 01/22/24 Not Available Not Available Not Available Zostavax (PF) 19,400 unit/0.65 mL subcutane ous suspensio n ADM 0.65ML SC UTD 01/21 completed Not Available Not Available Not Available FreeStyle Lite Strips Use twice daily as directed for monitori ng glucose, Dx Code N18.5 11/08 completed Not Available Not Available Not Available cholecalc iferol (vitamin D3) 1,250 mcg (50,000 unit) capsule Take 1 capsule every week by oral route. 2009 active Not Available Not Available Not Avai lable sevelamer carbonate 800 mg tablet TAKE 1 TABLET BY MOUTH THREE TIMES A DAY WITH MEALS active Not Available Not Available No t Available FreeStyle [place] Lite kit 11/08 completed Not Available Not Available Not Available Vitamin D3 50 mcg (2,000 unit) tablet 1 tab daily 11/08 completed Not Available Not Available Not Available GaviLyte- G 236 gram-22.7 4 gram-6.74 gram-5.86 gram oral solution 11/02 completed Not Available Not Available Not Available Eliquis 2.5 mg tablet PLEASE SEE ATTACHED FOR DETAILED DIRECTIO NS active Not Available Not Available No t Available Adult 50 Plus Probiotic 4 billion cell capsule Take 1 capsule every day by oral route as directed . 2023 active per d/c summary [facility] 01/22/24 Not Available Not Available Not Available potassium chloride ER 20 mEq tablet,ex tended release TAKE 1 TO 2 TABLETS BY MOUTH EVERY DAY 02/08 completed Per d/c summary Dmitri, pt holding the 20 mEq daily, needs to discuss whether needed ongoing with nephrolo gy Not Available Not Available Not Available cyclophos phamide 25 mg capsule TAKE 4 CAPSULES BY MOUTH EVERY MORNING 04/09 completed Not taking 01/25/21 AAS Not Available Not Available Not Available Flonase Allergy Relief 50 mcg/actua tion nasal spray,chi pension Inhale 2 sprays every day by intranas al route. 01/21 completed Not Available Not Available Not Available Proctosol HC 2.5 % topical cream perineal applicato r APPLY A THIN LAYER TO THE AFFECTED AREA(S) TOPICALL Y TWICE A DAY FOR 2 WEEKS 04/23 completed Not Available Not Available Not Available Fluad 2018- 65yr up(PF)45 mcg(15 mcgx3)/0. 5 mL intramusc ular syringe inject 0.5 millilit er intramus cularly 11/02 completed Not Available Not Available Not Available Vitals Date Recorded Body height Provider Name an d Address Organization Details Last Updated DateTime 12/11/2022 165.74 cm Anni Morrier, [facility] 12/11/2022 15:31:19 Date Recorded Heart rate Provider Name an d Address Organization Details Last Updated DateTime 12/11/2022 78 /min Anni Bailon [facility] 12/11/2022 15:33:38 Date Recorded Body temperature Provider Name a nd Address Organization Details Last Updated DateTime 12/11/2022 98.6 [degF] Anni Bailon [facility] 12/11/2022 15:34:17 Date Recorded Body height Provider Name an d Address Organization Details Last Updated DateTime 03/25/2023 165.1 cm Isidra Lopez [facility] 03/25/2023 15:21:05 Date Recorded Body mass index (BMI) Body weight Provider Name and Address Organization Details Last Updated DateTime 03/25/2023 20.2 kg/m2 70109.52 g Isidra Lopez [facility] 03/25/2023 15:21:14 Date Recorded Heart rate Provider Name an d Address Organization Details Last Updated DateTime 03/25/2023 82 /min Isidra Lopez [facility] 03/25/2023 15:21:23 Date Recorded Oxygen saturation Oxygen saturation in Arterial blood by Pulse oximetry Provider Name and Address Organization Details Last Updated DateTime 03/25/2023 100 % 100 % Isidra Lopez COMPUTER FIELD TECHNICIAN [facility] 03/25/2023 15:21:27 Date Recorded Body height Provider Name an d Address Organization Details Last Updated DateTime 04/14/2023 165.1 cm Sharmila Rachel [facility] 04/14/2023 14:33:38 Date Recorded Body mass index (BMI) Body weight Provider Name and Address Organization Details Last Updated DateTime 04/14/2023 19.7 kg/m2 70125.6 g Sharmila Rachel [facility] 04/14/2023 14:33:51 Date Recorded Oxygen saturation Oxygen saturation in Arterial blood by Pulse oximetry Provider Name and Address Organization Details Last Updated DateTime 04/14/2023 99 % 99 % Sharmila Rachel [facility] 04/14/2023 14:42:06 Date Recorded Heart rate Provider Name an d Address Organization Details Last Updated DateTime 04/14/2023 86 /min [facility]/14[facility] 14:42:20 Date Recorded Body height Provider Name an d Address Organization Details Last Updated DateTime 08/13/2023 165.1 cm Ilana Turner [facility] 08/13/2023 14:34:28 Date Recorded Body mass index (BMI) Body weight Provider Name and Address Organization Details Last Updated DateTime 08/13/2023 20.1 kg/m2 83222.24 g Ilana Johnny [facility] 08/13/2023 14:34:39 Date Recorded Heart rate Provider Name an d Address Organization Details Last Updated DateTime 08/13/2023 96 /min Ilanagreg Turner [facility] 08/13/2023 14:41:41 Date Recorded Body height Provider Name an d Address Organization Details Last Updated DateTime 09/05/2023 165.1 cm Celena Alston [facility] 09/05/2023 14:29:41 Date Recorded Body mass index (BMI) Body weight Provider Name and Address Organization Details Last Updated DateTime 09/05/2023 20.1 kg/m2 87365.88 g Celnea Alecia [facility] 09/05/2023 14:29:52 Date Recorded Body temperature Provider Name a nd Address Organization Details Last Updated DateTime 09/05/2023 99.4 [degF] Celena Alston [facility] 09/05/2023 14:35:00 Date Recorded Heart rate Provider Name an d Address Organization Details Last Updated DateTime 09/05/2023 82 /min Celena Alston [facility] 09/05/2023 14:36:21 Date Recorded Oxygen saturation Oxygen saturation in Arterial blood by Pulse oximetry Provider Name and Address Organization Details Last Updated DateTime 09/05/2023 98 % 98 % Celena Alston [facility] 09/05/2023 14:36:26 Date Recorded Body height Provider Name an d Address Organization Details Last Updated DateTime 12/03/2023 165.1 cm Ilana Turner [facility] 12/03/2023 11:20:24 Date Recorded Body mass index (BMI) Body weight Provider Name and Address Organization Details Last Updated DateTime 12/03/2023 20.1 kg/m2 95227.68 g Ilana Turner [facility] 12/03/2023 11:21:04 Date Recorded Heart rate Provider Name an d Address Organization Details Last Updated DateTime 12/03/2023 84 /min Ilana Turner [facility] 12/03/2023 11:26:34 Date Recorded Systolic blood pressure Diastolic blood pressure Provider Name and Address Organization Details Last Updated DateTime 12/11/2022 90 mm[Hg] 44 mm[Hg] Anni Bailon [facility] 12/11/2022 15:32:52 Date Recorded Systolic blood pressure Diastolic blood pressure Provider Name and Address Organization Details Last Updated DateTime 03/25/2023 126 mm[Hg] 45 mm[Hg] Isidra Lopez COMPUTER FIELD TECHNICIAN [facility] 03/25/2023 15:21:20 Date Recorded Systolic blood pressure Diastolic blood pressure Provider Name and Address Organization Details Last Updated DateTime 04/14/2023 142 mm[Hg] 70 mm[Hg] Sharmila Rachel [facility] 04/14/2023 14:41:35 Date Recorded Systolic blood pressure Diastolic blood pressure Provider Name and Address Organization Details Last Updated DateTime 08/13/2023 134 mm[Hg] 60 mm[Hg] Ilana Turner [facility] 08/13/2023 14:41:39 Date Recorded Systolic blood pressure Diastolic blood pressure Provider Name and Address Organization Details Last Updated DateTime 09/05/2023 130 mm[Hg] 64 mm[Hg] Celena Alston Gricelda [facility] 09/05/2023 14:36:19 Date Recorded Systolic blood pressure Diastolic blood pressure Provider Name and Address Organization Details Last Updated DateTime 12/03/2023 114 mm[Hg] 56 mm[Hg] Ilana Turner [facility] 12/03/2023 11:26:29 Social History Question Answer Notes LastModified by Organizat ion Details LastModified Time Tobacco Smoking Status Former Smoker quit 40 yrs ago DELPHINE Salvador [address] [place] [address], [id number], [facility] 11/09/2010 10:43:59 Do You Have An Advance Directive? No Information not available 01/24/2011 What Is Your Level Of Alcohol Consumption? None Information not available 09/08/2014 Do You Wear A Helmet When Biking? No NA [email or web address] Information not available 04/23/2018 What Is Your Level Of Caffeine Consumption? None Information not available 04/09/2021 How Much Tobacco Do You Chew? None Information not available 09/08/2014 Are You Currently Employed? No [email or web address] Information not available 09/05/2023 What Type Of Diet Are You Following? REGULAR Cardio Diet Information not available 11/29/2022 Which Illicit Or Recreational Drugs Have You Used? NONE Information not available 04/23/2018 Do You Or Have You Ever Used E-cigarettes Or Vape? 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 No Information not available 11/29/2022 When Did You Quit Smoking? 16+yearssincel [email or web address] Information not available 04/07/2015 Are There Any Guns Present In Your Home? No [email or web address] Information not available 04/23/2018 Do You Use Insect Repellent Routinely? No Information not available 11/29/2022 Live Alone Or With Others? With Others With Son [email or web address] Information not available 05/13/2019 Does The Patient Have Difficulty Speaking Hebrew? No Information not available 09/08/2014 Does The Patient Have Difficulty Reading Hebrew? No Information not available 09/08/2014 Patient Has Health Care Proxy Signed And In Chart Yes Mejia Tran, Son, [email or web address] Information not available 04/24/2018 CCM Consent Discussion 04/10/2022 [email or web address] Information not available 04/18/2022 Marital Status Information not available 01/24/2011 Mosquito Repellent Used Routinely Yes Information not available 07/15/2013 What Was The Date Of Your Most Recent Tobacco Screening? 12/03/2023 Information not available 12/03/2023 How Many Children Do You Have? 2 [email or web address] Information not available 01/24/2011 What Is Your Current Pack Years? [email or web address] Information not available 04/07/2015 What Is Your Relationship Status? Lives W/ Son Information not available 12/03/2023 Do You Use Your Seat Belt Or Car Seat Routinely? Yes Information not available 11/29/2022 Seat Belts Used Routinely Yes Information not available 07/15/2013 Smoke Alarm In Home Yes Information not available 07/15/2013 Do You Have Smoke And Carbon Monoxide Detectors In Your Home? Yes Information not available 04/09/2021 Are You Passively Exposed To Smoke? Yes Outside Information not available 12/03/2023 Do You Or Have You Ever Used Smokeless Tobacco? Never Used Smokeless Tobacco Information not available 11/02/2018 How Much Tobacco Do You Smoke? No Information not available 11/12/2019 What Types Of Sporting Activities Do You Participate In? None [email or web address] Information not available 04/23/2018 General Stress Level Medium Information not available 12/11/2015 Do You Use Any Illicit Or Recreational Drugs? No [email or web address] Information not available 03/20/2022 Do You Use Sunscreen Routinely? Yes Information not available 11/29/2022 How Many Years Have You Smoked Tobacco? 50 [email or web address] Information not available 08/10/2020 Do You Or Have You Ever Used Any Other Forms Of Tobacco Or Nicotine? No [email or web address] Information not available 03/20/2022 Sex: Female Functional Status Question Answer Note LastModified by Organization D etails LastModified Time What is your exercise level? None Information not available 04/09/2021 Mental Status None recorded. Family History Relationship Description Onset Age of this Age Resolved Age Notes LastModified by Organization Details LastModified Time Mother Heart disease 85 aesrick Not available 2015 10:19:09 Mother Diabetes mellitus 85 previo usly record ed as Diabet es aesrick Not available 09/08/2014 08:18:26 Father Malignant tumor of prostate previo usly record ed as Cancer - Prosta te aesrick Not available 09/08/2014 08:18:26 Brother Diabetes mellitus 46 previo usly record ed as Diabet es aesrick Not available 09/08/2014 08:18:26 Medical History Condition Response Cataracts Y Macular Degeneration Y RENAL / GENITOURINARY GERD Y Hypertension Y Gynecological History Statement/Question Response Menses Monthly N History of Abnormal Pap N Obstetrics History GPAL:G 0 P 0 0 0 0 Immunizations Vaccine Type Date Status Note Provider Nam e and Address Organization Details Recorded Time Influenza, high-dose, trivalent, PF 6 completed Not Available [facility] 03/27/2019 02:27:42 zoster live 6 completed Not Available [facility] 03/27/2019 02:21:04 Influenza, high-dose, trivalent, PF 7 completed Not Available [facility] 03/27/2019 02:37:12 influenza, unspecified formulation 5 completed Not Available [facility] 07/31/2022 13:47:35 Influenza, high-dose, quadrivalent, PF 0 completed Cora Chirinos RN [facility], [facility] 12/21/2019 14:51:11 Influenza, high-dose, trivalent, PF 9 completed Not Available [facility] 07/31/2022 13:47:35 Influenza, split virus, trivalent, preservative 0 completed Not Available [facility] 03/27/2019 02:38:45 Tdap 0 completed Not Available [facility] 03/27/2019 02:15:22 pneumococcal polysaccharide PPV23 2 completed CHICHO Painter null, [facility] 04/27/2021 12:04:04 SARS-COV-2 (COVID-19) vaccine, UNSPECIFIED 1 completed Not Available [facility] 07/31/2022 13:47:35 SARS-COV-2 (COVID-19) vaccine, UNSPECIFIED 1 completed Not Available [facility] 07/31/2022 13:47:35 Influenza, high-dose, quadrivalent, PF 3 completed DELPHINE Salvador [address] [place], [address], [facility] 11/30/2022 16:24:30 Influenza, high-dose, trivalent, PF 4 completed VERA Norris, [facility] 12/03/2023 11:40:51 Td (adult), 2 Lf tetanus toxoid, preservative free, adsorbed 4 completed Ilana Turner [place] niki, [facility] 12/03/2023 14:06:15 influenza, unspecified formulation 1 completed Not Available [facility] 07/31/2022 13:47:35 COVID-19, mRNA, LNP-S, PF, 30 mcg/0.3 mL dose 1 completed Not Available [facility] 07/31/2022 13:47:35 COVID-19, mRNA, LNP-S, PF, 30 mcg/0.3 mL dose 2 completed Not Available [facility] 07/31/2022 13:47:35 zoster recombinant 2 completed Not Available [facility] 07/31/2022 13:47:35 zoster recombinant 2 completed Not Available [facility] 07/31/2022 13:47:35 COVID-19, mRNA, LNP-S, bivalent, PF, 30 mcg/0.3 mL dose 2 completed Not Available [facility] 07/31/2022 13:47:35 Influenza, high-dose, quadrivalent, PF 2 completed Not Available [facility] 07/31/2022 13:47:35 pneumococcal polysaccharide PPV23 2 completed Anni Bailon [facility] null, [facility] 12/11/2022 15:39:05 Respiratory syncytial virus (RSV) vaccine, unspecified 3 completed Jennifer Tello CMA null, [facility] 04/14/2023 16:38:38 Past Encounters Encounter ID Performer Location Encounter Start Date Encounter Closed Date Diagnosis/Indication Diagnosis SNOMED-CT Code Diagnosis ICD10 Code Diagnosis Note [id number] [facility], [address] [address] 12/01/2008 10:16:25 12/02/2008 07:02:11 [id number] [facility], [address] [place] [address] 05/04/2009 15:28:25 05/08/2009 09:04:48 [id number] [facility], [address] [place] [address] 06/02/2009 16:07:45 06/05/2009 12:21:22 [id number] [facility], [address] [place] [address] 12/08/2009 14:11:38 12/13/2009 12:44:05 [id number] [facility], [address] [place] [address] 08/24/2010 16:22:03 08/28/2010 14:41:25 [id number] [facility], [address] [place] [address] 11/09/2010 09:49:31 11/09/2010 10:55:30 [id number] [facility], [address] [place] [address] 02/21/2011 15:15:11 02/21/2011 17:46:58 [id number] Christophe Mayo MD [facility], [address] [place] [address] 02/24/2012 07:50:59 02/24/2012 09:16:18 [id number] Marci Aggarwal [facility], [address] [place] [address] 07/15/2013 07:55:45 07/15/2013 13:50:19 Adult health examination [id number] see Risk Assessment and Lifestyle Change Counseling section above elevated triglyceri desp increse fish, veggies Benign ess ential hypertension 7297083 Blood pressure at goal Blood pressure NOT at goal. Knee pain 55890282 [id number] Kalani Esquivel [facility], [address] [place] [address] 09/08/2014 07:59:20 09/08/2014 09:05:16 Adult health examination [id number] see Risk Assessment and Lifestyle Change Counseling section above Benign ess ential hypertension 1123105 Blood pressure at goal . Sleep disorder 37608919 Increased frequency of urination 363056377 Knee pain 36544417 [id number] DELPHINE Salvador , [facility], [address] [place] [address] 04/07/2015 07:44:10 04/07/2015 08:39:03 Benign essential hypertension 4167904 I10 Blood pressure at goal increase demands with [facility] , husbands referrl discussed Screening for disorder 789315091 Z11.59 on f/u Screening mammography 24 763700 Z12.31 done [id number] Sabrina Guerrero LPN , [facility], [address] [place] [address] 07/13/2015 13:36:53 07/13/2015 14:31:58 Acute upper respiratory infection 56458153 J06.9 Educated patient that URI is a viral illness of the upper airways. It is not bacterial and does not benefit from antibiotic s. Average duration of URI is 7-10 days but in a recent trial, treatment at 7-10 days of illness with antibiotic s, intranasal steroids, or placebo did not alter natural history at 3 weeks. Recommende d symptomati c treatments including NSAIDS, semi-uprig ht sleep position, antihistam glen at HS, limited course of nasal sympathomi metics and/or cough syrups, and nasal saline rinses with soft squeeze bottle or Neti pot. Return for fevers > 101 for 3 days, worsening sinus pain, or failure to resolve in 2-4 weeks. [id number] DELPHINE Salvador, [facility], [address] [place] [address] 12/11/2015 09:38:07 12/11/2015 10:44:13 Adult health examination 527715949 Z00.00 see Risk Assessment and Lifestyle Change Counseling section above Counseling 628921285 Z71 .9 Sinusitis 32895223 J32.9 f/u 10-14 days- sooner any worsneing Active or passive immunization 222831228 Z23 [id number] DELPHINE Salvador, [facility], [address] [place] [address] 12/25/2015 10:33:38 12/25/2015 11:54:58 Sinusitis 84273144 J32.9 consulted with PCP, suspect ab resitance for sinusitis- Active or passive immunization 991891719 Z23 [id number] DELPHINE Salvador, [facility], [address] [place] [address] 01/22/2016 11:39:11 01/23/2016 16:00:44 Neck pain 89520581 M54.2 [id number] Heather hoang, PT Physical Therapy, [facility] [address] [place] [address] 03/25/2016 12:08:18 03/26/2016 07:50:32 Neck pain 66185323 M54.2 right and headache [id number] Heather hoang, PT Physical Therapy, [facility] [address] [place] [address] 04/08/2016 13:08:01 04/08/2016 14:20:16 Neck pain 05805994 M54.2 right and headache [id number] DELPHINE Salvador, [facility], [address] [place] [address] 06/06/2016 10:33:39 06/06/2016 11:47:15 Benign essential hypertension 9123613 I10 Blood pressure at goal [id number] DELPHINE Salvador, [facility], [address] [place] [address] 01/29/2017 10:49:15 01/29/2017 12:12:51 Adult health examination 665904722 Z00.00 see Risk Assessment and Lifestyle Change Counseling section above Counseling 703869085 Z71 .9 Benign ess ential hypertension 5826788 I10 Blood pressure at goal Active or passive immunization 432526064 Z23 Mixed hyperlipidemia 267 624004 E78.2 will increase fibre, exercise, a dd aspirin- consider statin if not controlled after 6 months [id number] DELPHINE Salvador, [facility], [address] [place] [address] 07/30/2017 10:33:28 07/30/2017 12:19:58 Benign essential hypertension 1465041 I10 Blood pressure at goal Rectal pain 44779328 K62 .89 [id number] Eileen Goodrich NP FP, [facility], [address] [place] [address] 08/13/2017 13:23:30 08/13/2017 15:15:05 Eruption 041688405 R21 -reassuran ce-this is not a lyme rash [id number] Haley Cornelius , [facility], [address] [place] [address] 04/23/2018 13:00:35 04/23/2018 14:47:51 Adult health examination 858376194 Z00.00 see Risk Assessment and Lifestyle Change Counseling section above Counseling 159167565 Z71 .9 Depression screening 171 Z13.89 depression screening tool administer ed, entered into emr, scored and discussed, time greater than 7.5 minutes Benign ess ential hypertension 7326009 I10 Blood pressure at goal [id number] Erica Alcantar NP FP, [facility], [address] [place] [address] 05/22/2018 12:49:29 05/22/2018 13:55:06 Upper respiratory infection 65227664 J06.9 Supportive therapy recommende d. See patient instructio ns below. [id number] DELPHINE Salvador, [facility], [address] [place] [address] 11/02/2018 10:55:22 11/02/2018 11:41:03 Benign essential hypertension 8410541 I10 Blood pressure at goal Hyperlipidemia 02881747 E78.5 Mixed hyperlipidemia 267 346106 E78.2 will increase fibre, exercise, a dd aspirin- WILL ADD statin as not controlled after 6 months [id number] DELPHINE Salvador, [facility], [address] [place] [address] 05/13/2019 14:30:58 05/13/2019 15:39:04 Adult health examination 246868657 Z00.00 see Risk Assessment and Lifestyle Change Counseling section above Counseling 762381661 Z71 .9 including cardiovasc ular risk reduction counseling Depression screening 171 Z13.89 depression screening tool administer ed, entered into emr, scored and discussed, time greater than 7.5 minutes Screening for alcohol abuse 690422024 Z13.39 Mixed hyperlipidemia 267 032352 E78.2 Cholestero l is at goal Continue to work on diet and exercise as discussed Essential hypertension 91630860 I10 at goal Knee pain 05549863 M25.5 68 gentle movement at home, range of motion , [facility] Age relate d macular degeneration 626365429 H35.30 geting shots every 3 months [id number] DELPHINE Salvador, [facility], [address] [place] [address] 11/12/2019 11:01:27 11/12/2019 14:28:53 Essential hypertension 27621558 I10 at goal 05/27- track home readings- f/u ith results Mixed hyperlipidemia 267 929901 E78.2 Cholestero l is at goal Continue to work on diet and exercise as discussed Backache 086003267 M54.9 exercise reviewed, alignment when sleeping to decrease AM back pain- f/u if not improving in 2-4 wks- consider xray [id number] Cora Chirinos RN FP, [facility], [address] [place] [address] 12/21/2019 07:22:40 12/22/2019 08:28:24 Active or passive immunization 622348799 Z23 [id number] DELPHINE Salvador, [facility], [address] [place] [address] 04/24/2020 11:38:54 05/01/2020 13:33:27 Neck pain 03557016 M54.2 neck strain- heat 10 mins every 2-3 hours, gentle ROM , keeping aymmetry Acute sinusitis 56855817 J01.90 tx sinusitis Benign ess ential hypertension 7728489 I10 Blood pressure at goal in past [id number] Leonila Goldstein CMA FP, [facility], [address] [place] [address] 05/26/2020 14:05:04 05/26/2020 16:20:16 Acute upper respiratory infection 68534942 J06.9 Suspect virus. Do covid testing for chills/ sweats, cough. Headache 40274440 R51.9 discussed craniosacr al therapy or chiropract ic or PT. She will wait and see as to the test result. 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 493873884 M31.31 continue nephrology f/u- consulted Dr Leiva today- over 40 minutes spent on visit [id number] DELPHINE Salvador , [facility], [address] [place] [address] 08/30/2020 11:20:37 09/01/2020 07:02:36 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 726258900 M31.31 continue nephrology f/u- consulted Dr Leiva today- will increase torsemide to 40 mg bid- recheck bmp in coming wk/nephrol ogy- over 40 minutes spent on visit [id number] Enzo Antunez RN , [facility], [address] [place] [address] 01/18/2021 13:40:29 01/26/2021 10:45:45 [id number] DELPHINE Salvador , [facility], [address] [place] [address] 01/25/2021 13:24:18 02/14/2021 13:55:03 Essential hypertension 89637857 I10 not at goal, spoke with nephologis t re BP goals- Dr Leiva will be reaching pt to f/u 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 [id number] Eileen Rubin MD FP, [facility], [address] [place] [address] 03/14/2021 13:37:14 03/15/2021 11:12:32 Urinary tract infectious disease 70514035 N39.0 Patient instructed to push fluids, to follow up for persistent or worsening symptoms or fever or back pain. 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 200458031 M31.31 continue nephrology f/u- [id number] DELPHINE Salvador, [facility], [address] [place] [address] 04/09/2021 15:43:11 04/26/2021 10:00:12 Adult health examination 797566461 Z00.00 see Risk Assessment and Lifestyle Change Counseling section above Counseling 675098076 Z71 .9 including cardiovasc ular risk reduction counseling Depression screening 171 976158 Z13.31 depression screening tool administer ed, entered into emr, scored and discussed, time greater than 7.5 minutes Screening for alcohol abuse 854750198 Z13.39 Essential hypertension 56370311 I10 at goal Mixed hyperlipidemia 267 842906 E78.2 Cholestero l is at goalPT HAS HAD 50 LB WT LOSS- questionin g if needsstain with LDL over a yr ago < 70- trial off - recheck in 3 months when it works for [employer] to work on diet and exercise as discussed 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 Will treat presumptiv avani. Sxs restarted 3 days agoWorseni ng at nightUnabl e to give urine sampleNoct uriaDysuri aDenies blood in urine, low back pain, abdominal pain, fever/chil ls. Last UTI (and first) 03/22/2021T reated w/ Augmentin d/t kidney disease.Sx s resolved completely but returned soon after. Saw nephrologi st recently and they approved of Augmentin as choice for abx. Will treat again w/ Augmentin but with longer course (10 days). Advised probiotics . F/u if sxs persist or worsen. Reviewed UC hours. Active or passive immunization 003278671 Z23 Benign ess ential hypertension 5792975 I10 At goal of less than 130/80. No need for medication change. 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 670867824 E11.9 due to prednsione - eleavted BS's - used to tx glomerunep hritis Chronic ki dney disease 790147170 N18.9 [id number] DELPHINE Vance, [facility], [address] [place] [address] 07/23/2021 13:29:13 09/03/2021 15:25:17 Herpes zoster 8243264 B02.9 - agree, rash most consistent with shingles- Antiviral tx discussed - dose reduced due to kidney disease- tylenol okay for pain if needed, will hold off on gabapentin for now as pt feels the burning sensation is not too bothersome - Explained rash is contagious only during blistering phase; not contagious when lesions crusts over- Encouraged zoster vaccine when sx improve- Call if pain persisting or no improvemen t within 48-72 hours, could consider adding on prednisone at that time 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 196458455 E11.9 recent A1C <6predniso ne considered , would add on if no sig improvemen t with antiviral as above 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 ekg nl- no ischemia. 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 Chronic ki dney disease 004294484 N18.9 known CKD 5, likely contributi ng to electrolyt e disturbanc e leading to N/V Malaise 483184581 R53.81 check labs below.advi sed ER she declines. Heart murmur 98700422 R0 1.1 mitral murmur, no signs of endocardit is or heart failure, probably old but she reports never heard before [id number] Anni Bailon CMA FP, [facility], [address] [place] [address] 02/08/2022 13:40:06 02/08/2022 14:46:16 Left inguinal hernia 026677518 K40.90 no pain, reducible- surgery eval when able Chronic renal failure 90 089927 N18.9 pt started dialysis this month- needs pap smear today to be on reanl transplant list Restless legs 54165649 G 25.81 suspect due to iron replacemen t- cont f/u with dialysis- instructed to cont iron supps/dial ysis Screening for malignant neoplasm of cervix 881684538 Z12.4 [id number] Akanksha Lamas MD , [facility], [address] [place] [address] 03/20/2022 08:30:17 03/20/2022 11:43:25 Urinary tract infectious disease 18034250 N39.0 will attempt to get urine sample for cxwill start abx empiricall ywill call pt with results if get samplecall if concerns( yani at [facility] notified not to fill macrobid) Dialysis procedure 70040 1001 Z99.2 End-stage renal disease 44896017 N18.6 pt will let dialysis know of med [id number] Akanksha Lamas MD , [facility], [address] [place] [address] 03/27/2022 11:22:48 03/28/2022 08:54:38 Urinary tract infectious disease 64454604 N39.0 no improvemen t with amoxilon cephalexin now, somewhat better, pt opt to continue ( offered stronger abx)will give urine for cx today, or take home cupcall if sx worsen before cx backpt agrees with plan [id number] DELPHINE Salvador , [facility], [address] [place] [address] 04/03/2022 15:14:52 04/03/2022 17:04:27 Dysuria 56942303 R30.0 neg urine culture- pt will consult with nephrologi st- could consider antispasmo dic or topical estrogen- discussed not using any topical chemicals will f/u in coming wk [id number] DELPHINE Salvador, [facility], [address] [place] [address] 04/10/2022 13:50:34 04/10/2022 15:36:08 Dysuria 02773047 R30.0 neg urine culture- pt will consult with nephrologi st- could consider antispasmo dic or topical estrogen- discussed not using any topical chemicals will f/u in coming wk End-stage renal disease 68701056 N18.6 cont dialysis- f/u nephology Atrophic vaginitis 16204 000 N95.2 trial with estrogen cream Dizziness 316597409 R42 check labs- no orthosatti gn symptoms 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 166468603 E11.9 due to prednsione - eleavted BS's - used to tx glomerunep hritis, not on presently [id number] DELPHINE Salvador FP, [facility], [address] [place] [address] 06/17/2022 10:39:17 06/17/2022 11:42:00 Dysuria 39224123 R30.0 neg urine culture- pt will consult with nephrologi st- could consider antispasmo dic or topical estrogen- discussed not using any topical chemicals will f/u in coming wk 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 666902226 E11.9 due to prednsione - eleavted BS's - used to tx glomerunep hritis, not on presently [id number] Akanksha Lamas MD FP, [facility], [address] [place] [address] 06/26/2022 15:55:44 06/28/2022 15:58:47 Painful urging to urinate 76937230 R30.0 last several Ucx negative, treated empiricall ywill send urine for dip and ucxhold off on treatment today as i wonder if we are on the wrong path [id number] Akanksha Lamas MD FP, [facility], [address] [place] [address] 06/28/2022 09:20:57 06/28/2022 14:44:27 Increased frequency of urination 596873676 R35.0 urine results still pending, but last 4 cultures negativeof fered trial antispasmo dic vs urology referralpt will try medwill call with urine results End-stage renal disease 56900411 N18.6 pt will followup with renal about potassium, calcium, etc. those are things renal manages. PCP doesnt prescribe immunosupp ressants, and i am not sure what they are asking. 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 146260109 M31.31 continue nephrology f/u- Pain of ri ght shoulder joint 4455486728 9253089 M25.511 suspect strain- no s/s of rotator cuff injury Active or passive immunization 495322211 Z23 [id number] Ashley Mckeon NP FP, [facility], [address] [place] [address] 12/11/2022 15:12:49 12/11/2022 17:47:57 Dysuria 39453118 R30.0 Last UTI in June 2022,More frequent since starting dialysisWi ll refer to urology - pt has number and will f/u End-stage renal disease [facility]1582384 N18.6 [facility] Recurrent urinary tract infection 996611322 N39.0 Referred to urology for eval. Urinary tr act infectious disease 98106432 N39.0 Unable to provide urine today -Given discomfort is 8/10 and sx consistent with prev UTI, will start bactrim.Pt will wait in lobby for another 30 minutes to see if she can provide urine sample for culture. [id number] Eileen Rubin MD FP, [facility], [address] [place] [address] 04/14/2023 14:21:02 04/14/2023 15:14:06 Vaccination delayed 8327293303 76972 Z28.39 Td Mass of neck 714352638 R 22.1 Feels benign; could be lymph node or less likely, parotid gland. Observe for now. If not resolving in 2-4 weeks, we can get ultrasound . [id number] Eileen Rubin MD , [facility], [address] [place] [address] 08/13/2023 14:26:57 08/14/2023 13:44:13 Mass of neck 989151330 R22.1 We wiill start with ultrasound ; may need additional imaging if we cannot make a clear diagnosis Low back pain 390789093 M54.50 gentle stretching , heat, movement, tylenol. You could consider PT; you decline but will let me now [id number] BALJEET AGUILAR , [facility], [address] [place] [address] 09/05/2023 14:16:54 09/06/2023 20:59:38 Eruption 203180479 R21 Itchy, burning, erythema of face and throat x3 daysNo recent med changes, chemical exposure, or new foodsNo tenderness , fever, warmth to suggest erysipelas Crosses dermatomes , is bilateral, has no vesicular component, and no prodromal sxs to suggest shingles Could be delayed drug reaction? Start trial of steroid cream careful to avoid use near the eyesMaximu m use of two weeksCall clinic right away for fever, blistering , worseningR TC in one week if not improved [id number] NICHOLE Anthony, [facility], [address] [place] [address] 12/03/2023 10:35:27 12/03/2023 12:14:34 Adult health examination 102716672 Z00.00 see Risk Assessment and Lifestyle Change Counseling section above Depression screening 171 108526 Z13.31 depression screening tool administer ed Screening for alcohol abuse 275566823 Z13.39 Alcohol use screening tool administer ed Active or passive immunization 737815568 Z23 End stage renal failure on dialysis 206467691 Z99.2 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 Advanced care planning was discussed for {{less than* more than}} 15 minutes. 2. Participan ts included {{patient* patient and family pat ient's family pat ient's surrogate} } and they were given an opportunit y to decline discussion . 3. Health Care Proxy {{was* was not}} discussed. 4. Patient {{has* has not}} completed Health Care Proxy form. {{It was* It was not}} given to take home. 5. Names(s) relationsh ip(s) of Health Care Proxy: Mejia, son- pt relates may need to have her other son, Serafin be health care proxy 6. MOLST {{was* was not}} discussed. 7. Patient {{has has not*}} completed MOLST form. 8. Details of discussion : pt discussed that her present HCP may not be able to continue and considerandrea g adding.zachery nging HCP to other sondiscuss ed benefit of reviewing MOLST- pt states for most procedures - whether it improve her quality od health on the short term and not be needed in the group home 9. Follow up needed: pt to make a Advanced planning visit. Counseled by member of primary health care team 268913299 Z71.9 Today we discussed ways to reduce your 10-year cardiovasc ular disease risk. Things that decrease risk for cardiovasc ular events include eating a diet high in fiber (fruits and vegetables ) and low in simple carbohydra ivana (bread, rice, pasta, alcohol, potatoes), decreasing processed foods, limiting juice and alcohol, limiting saturated fats (butter, ice cream, and cheeses), and adding regular daily activity. Having blood pressure that is <130/80. Having well controlled cholestero l (LDL and triglyceri lashawn) by eating a healthy diet and taking medication s when necessary. Managing daily stress with meditation or yoga. Depending on your other cardiovasc ular risks your practition er may recommend taking daily aspirin. Health Concerns Section Related Observation LastModified by Organization Detai ls LastModified Time None Recorded Concern Status LastModified by Organization Details LastModified Time None Recorded Advance Directives Directive N: Payers Encounter Date Sequence Insurance Name Policy Number Policy Marion Covered Member ID Marion Member ID Guarantor Name 12/11/2022 2 [facility] IN[facility] - [facility] [id number] Akanksha Tran [id number] Akanksha Tran 12/11/2022 1 [place]: [employer] Akanksha Tran [id number] Akanksha Tran 04/14/2023 2 [facility] [employer] [id number] Akanksha Tran [id number] Akanksha Tran 04/14/2023 1 [place] [facility] Akanksha Tran [id number] Akanksha Tran 08/13/2023 2 [facility] UN[employer]ARE [id number] Akanksha Tran [id number] Akanksha Tran 08/13/2023 1 [place] [facility] Akanksha Carlinter [id number] Akanksha Tran 09/05/2023 2 [facility] - UNICARE [id number] Akanksha Tran [id number] Akanksha Tran 09/05/2023 1 [place] [facility] Akanksha Carlinter [id number] 1 Akanksha Tran 12/03/2023 2 [facility] [id number] Akanksha Tran [id number] Akanksha Tran 12/03/2023 1 [place] [facility] Akanksha Carlinter [id number] 1 Akanksha Tran Notes Date Note Type Note Provider Name and Address Organization Details Recorded Time 3 text/html Pt c/o low back pain in the night, urine odor, difficulty voiding gradually increasing, over the past week. Has had UTIs every 2 months or so. Urologist referral was considered last time, but hasn't happened thus far.Reports: lower back pain Denies: blood in urine, fevers UTIs have become more frequent since starting dialysis last year2-3 per hx recordLast one in June 2022 Ashley Mckeon, JOE [address] [facility], [place], [address], [facility] 12/12/2022 08:47:28 4 text/html Patient is here for a lump under her throat, lump started to bother her last week& left ear ache. Lump was larger when she called on Friday. Started w ear ache a week ago, L side. No URI sx. Then noticed lump near L side of chin. Might be smaller now. Eileen Rubin MD [address] [place], [address], [facility] 04/14/2023 18:10:09 4 text/html L sided gland, not resolving, comes and goes but never goes away. Top of neck below chin.Lots of low back pain, worse at night. Has to lay on R side because of problems w L arm, but that hurts her R hip. Has had back stiffness in past, but not pain like this. Radiates to R hip but not in buttock or legs. No numbness legs/feet. No new weakness Eileen Rubin MD [address] [place] [address], [address], [facility] 08/13/2023 21:25:19 4 text/html Burning rash Started three days agoFirst noticed above eye then migrated to mid face and then yesterday to throatBurnsItchyUsed old lotion on face that was expiredNo new medsNot out in sun alotBenadryl did not helpNo paresthesiasNot outside a lotChills on the first dayNo n/v, headache, malaise, feverNot tenderNo recent infections ANNI RUSHING, [facility]-[address], [address], [facility] 09/05/2023 16:03:10 4 text/html Risk Assessment and Lifestyle Change Counseling (Medicare)Reported bypatient.Coronary Artery Disease Risk Assessment:Family History of Coronary Artery Disease; No personal history of diabetes; No history of peripheral vascular disease, AAA, or carotid disease Breast Cancer Risk Assessment:No family history of breast cancer; No history of breast cancer or dcis Colon Cancer Risk Assessment:No family history of pre cancerous colon polyps or cancer Lung Cancer Risk Assessment:Never smoked Fracture Risk Assessment:balance is normal Cognitive/Behavioral Risk Assessment:No personal history of mental illness Safety Risk Assessment:Has grab bars in bathroom; Has rails on steps; No falls; No evidence of abuse/neglect Functional Status:Patient does not have trouble hearing the television or radio when others do not.; Patient does not have to strain or struggle to hear/understand conversations; Patient does not need help with preparing meals, transportation, shopping, taking medicine, managing finances, or other activities of daily living.; Patient does not have visual loss that interferes with daily activities (has macular degeneration- seeing eye dr); Does not live alone;Patient was unsteady or takes longer than 30 seconds during the timed get up and go test.; Patient reports no falls in the past 6 months.; if someone speaking softly- trouble hearing Diet:Counseled about appropriate portion size; Counseled about eating a diet low in trans and saturated fats and high in fiber, fruits and vegetables; Counseled about appropriate calcium intake and good dietary sources of calcium.; Counseled about the importance of maintaining a positive calcium balance and taking 1000 iu Vitamin D daily.; Counseled about decreasing carbohydrates; Counseled about decreasing salt in diet; Discussed the value of a Mediterranean diet , and eating more fruits and vegetables Exercise counseling:Discussed the importance of daily physical activity; Discussed the importance of weight bearing exercise Safety:Counseled about protecting skin from the sun and lowering the risk of skin cancer; Counseled about avoiding excessive and unsafe alcohol intake; Counseled about use of helmets for high velocity activiities; Counseled about home safety including use of smoke detectors, CO detectors, keeping home water temperature less than 120; Counseled about use of seat belts; Counseled about fall risk from throw rugs and the need for hand rails on steps and in bath; An audit alcohol screening was performed and scored. Patient was asked about alcohol use. Advised about risks of alcohol. Personal risk was assessed. Patient agreed to plan and given information about available resources if needed. Discussion including screening and scoring greater than 7.5 minutes..VMG HyperlipidemiaReported bypatient.Duration:new diagnosis Control:poorly controlled;worsened since last visit Compliance:compliant with diet Context:Nonsmoker; No ischemic heart disease; No peripheral vascular disease ([id number]); No diabetes; No carotid artery stenosisVMG HypertensionReported bypatient.Context:No ischemic heart disease; No kidney disease; No history of CVA; No congestive heart failure; No history of transient ischemic attacks; No peripheral vascular disease; No history of diabetes Control:Treated with diet and exercise; Treated with medications Compliance:Compliant with medications; Compliant with diet; Compliant with exercise; Compliant with follow-up visits Associated Symptoms:No chest pain; No shortness of breath; No edema; No fatigue; No palpitations; No decline in exercise capacity; No snoring Pt presents for annual wvNo concerns Interested in flu and tetanus vax Ilana Turner MA [facility] 12/03/2023 14:06:42 OBGyn Episode No OBEpisode recorded.
== END 2024-04-01 13:52 | disposition home or self-care (01) ==
PROVIDERS: PCP Physician Assistant; Visit Provider Physician Assistant
DX: S72.002A Fracture of unspecified part of neck of left femur, initial encounter for closed fracture (principal)
CPT/HCPCS: 99024

== ENCOUNTER 2024-04-01 13:59 | Outpatient (REF) | payer MEDICARE, OTHER, SELFPAY ==
--- NOTE | ~2024-04-01 | XR_ITS ---
CLINICAL HISTORY: M25.552 - Pain in left hip 3 view, pelvis and left hip Comparison: None Findings: The bones are intact. Components of the left hip prosthesis are intact and well aligned. No significant arthritic change. The soft tissues are unremarkable. IMPRESSION: No acute findings. This document has been electronically signed by: Daron Orta MD on 04/03/2024 08:02:40
--- OUTSIDE RECORDS SUMMARY | 2024-04-02 15:42 | XMS_ITS | Encounter Summary ---
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); Stage 5 chronic kidney disease (HCC); Acute injury of kidney (HCC) Social History Tobacco Use Types Packs/Day Years Used Date Smoking Tobacco: Never Smokeless Tobacco: Never Alcohol Use Standard Drinks/Week Comments Never 0 (1 standard drink = 0.6 oz pur e alcohol) Comments Unknown Sex and Gender Information Value Date Recorded Sex Assigned at Not on file Legal Sex Female 10:23 AM EDT Gender Identity Not on file Sexual Orientation Not on file COVID-19 Exposure Response Date Recorded In the last month, have you been in contact with someone who was confirmed or suspected to have Coronavirus / COVID-19? 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) Stage 5 chronic kidney disease (HCC) Acute injury of kidney (HCC) ANCA PANEL Routine 08/18/2020 3:10 PM EDT PROTEIN / CREATININE RATIO, URINE Routine 08/18/2020 3:10 PM EDT 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) Stage 5 chronic kidney disease (HCC) Acute injury of kidney (HCC) RENAL FUNCTION PANEL Routine 08/18/2020 3:10 PM EDT 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 Decisions about treatment should not be based solely on ANCA IFA results. The International ANCA Group Consensus recommends follow up testing of positive sera with both WI-3 and MPO-ANCA enzyme immunoassays. As many as 5% serum samples are positive only by EIA. Ref. AM J Clin Pathol 1999;111:507-513. Atypical p-ANCA <1:20 [facility] Comment: Reference range: Neg:<1:20 Unit: titer [facility], [address] [place] [id number]. (NOTE) The atypical pANCA pattern has been observed in a significant percentage of patients with ulcerative colitis, primary sclerosing cholangitis and autoimmune hepatitis. Testing performed or reported by [facility], a Service of [facility], [facility] [place] [facility] [place] [address] Willam Serrano MD, Comptometer Operator 08/18/2020 3:10 PM EDT 08/18/2020 3:13 PM EDT Ricco Wall MD LAB BLOOD ORDERABLES Renetta l Result Performing Organization Address [facility] Phone Number [facility] * (ABNORMAL) Protein, Total, Random Urine w/Creatinine (Protein/Creat Ratio) (08/18/2020 3:10 PM EDT) [facility] Protein/Creatine Ratio 3.07(H) (0-0.2) [facility] Protein, Urine 177 MG/DL [facility] Comment: The urine microalbumin test is designed to monitor renal function. When screening for Bence Obrien proteinuria, urine electrophoresis is recommended. Creatinine, Urine 57.6 MG/DL [facility] Comment: Testing performed or reported by [facility], a Service of [facility], [address] [place] [address] Katrin Ragsdale MD, Comptometer Operator Urine (Urine, Clean Catch) 08/18/2020 3:10 PM EDT 08/18/2020 3:13 PM EDT Ricco Wall MD LAB URINE ORDERABLES Renetta l Result Performing Organization Address [facility] Phone Number [facility] * (ABNORMAL) ANCA AB Scrn with titer (08/18/2020 3:10 PM EDT) Pathologist [facility] Myeloperoxidase Ab <9.0 [facility] Comment: Reference range: 0.0 to 9.0 Unit: U/mL PR3 Ab 8.2(H) [facility] Comment: Reference range: 0.0 to 3.5 Unit: U/mL Test performed at [address] [address] Testing performed or reported by [facility], a Service of [facility], [address] [place] [address] Willam Serrano MD, Comptometer Operator Blood (Blood, Venous) 08/18/2020 3:10 PM EDT 08/18/2020 3:13 PM EDT Ricco Wall MD LAB BLOOD ORDERABLES Renetta schulte Result [facility] * (ABNORMAL) Renal Function Panel (08/18/2020 3:10 PM EDT) Glucose 233(H) (70-99) MG/DL [facility] BUN 69(H) (8-23) MG/DL [facility] Creatinine 4.0(H) (0.5-1.0) MG/DL [facility] Sodium 139 (133-145) MMOL/L [facility] Potassium 4.2 (3.6-5.2) MMOL/L [facility] Chloride 93(L) (98-107) MMOL/L [facility] Bicarbonate (CO2) 30(H) (22-29) MMOL/L [facility] Anion Gap 16 (4-17) [facility] Albumin 4.2 (3.4-4.8) GM/DL [facility] Calcium 9.1 (8.6-10.5) MG/DL [facility] Phosphorus, Serum 3.4 (2.5-4.5) MG/DL [facility] Est GFR Non 11 ML/MIN/1.7 3 M2 [facility] Comment: Creatinine based estimated glomerular filtration rate (eGFR) is calculated using the Chronic Kidney Disease Epidemiology Collaboration (CKD-EPI). The CKD-EPI creatinine equation has not been validated in children (<18 years), women or in some racial or ethnic subgroups other than Caucasians and Americans. EST GFR 12 ML/MIN/1.7 3 M2 [facility] Comment: Creatinine based estimated glomerular filtration rate (eGFR) is calculated using the Chronic Kidney Disease Epidemiology Collaboration (CKD-EPI). The CKD-EPI creatinine equation has not been validated in children (<18 years), women or in some racial or ethnic subgroups other than Caucasians and Americans. 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
--- OUTSIDE RECORDS SUMMARY | 2024-04-02 15:42 | XMS_ITS | Encounter Summary ---
Author Organization [facility] Address [address] [place] [address] Phone Care Team Providers Care Firearms Specialist Name Role Phone Leticia Mayo Primary Care Provider [phone] Encounter Details Date Type Department Care Team ([facility] st Contact Info) Description 08/04/2020 Orders Only [facility] [address] [place] [phone] Ricco Wall MD Antineutrophil cytoplasmic antibody positive [...] have Coronavirus / COVID-19? 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) Stage 5 chronic kidney disease (HCC) Acute injury of kidney (HCC) documented in this encounter Results * (ABNORMAL) ANCA AB Scrn with titer (08/31/2020 2:04 PM EDT) Pathologist [facility] Myeloperoxidase Ab <9.0 [facility] Comment: Reference range: 0.0 to 9.0 Unit: U/mL PR3 Ab 5.1(H) [facility] Comment: Reference range: 0.0 to 3.5 Unit: U/mL Test performed at [address] [address] Testing performed or reported by [facility], a Service of [facility], [address] [place] [address] Willam Serrano MD, Field Machinist Blood (Blood, Venous) 08/31/2020 2:04 PM EDT 08/31/2020 2:33 PM EDT us Ricco Wall MD LAB BLOOD ORDERABLES Renetta l Result [facility] * (ABNORMAL) Renal Function Panel (08/31/2020 2:03 PM EDT) Pathologist [facility] Glucose 324(H) (70-99) MG/DL [facility] BUN 68(H) (8-23) MG/DL [facility] Creatinine 3.5(H) (0.5-1.0) MG/DL [facility] Sodium 139 (133-145) MMOL/L [facility] Potassium 4.6 (3.6-5.2) MMOL/L [facility] Chloride 94(L) (98-107) MMOL/L [facility] Bicarbonate (CO2) 30(H) (22-29) MMOL/L [facility] Anion Gap 15 (4-17) [facility] Albumin 3.9 (3.4-4.8) GM/DL [facility] Calcium 9.0 (8.6-10.5) MG/DL [facility] Phosphorus, Serum 3.2 (2.5-4.5) MG/DL [facility] Est GFR Non 12 ML/MIN/1.7 3 M2 [facility] Comment: Creatinine based estimated glomerular filtration rate (eGFR) is calculated using the Chronic Kidney Disease Epidemiology Collaboration (CKD-EPI). The CKD-EPI creatinine equation has not been validated in children (<18 years), women or in some racial or ethnic subgroups other than Caucasians and Americans. EST GFR 14 ML/MIN/1.7 3 M2 [facility] Comment: Creatinine based estimated glomerular filtration rate (eGFR) is calculated using the Chronic Kidney Disease Epidemiology Collaboration (CKD-EPI). The CKD-EPI creatinine equation has not been validated in children (<18 years), women or in some racial or ethnic subgroups other than Caucasians and Americans. 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
--- OUTSIDE RECORDS SUMMARY | 2024-04-02 15:42 | XMS_ITS | Encounter Summary ---
Author Organization [facility] Address [address] [facility] [address] [place] [address] Phone Care Team Providers Care Hash Slinger Name Role Phone Leticia Mayo Primary Care Provider [phone] Reason for Visit * Reason Comments Med Refill Encounter Details Date Type Department Care Team ([facility] st Contact Info) Description 08/05/2020 Refill [facility] [address] [facility] [address] [place] [phone] Oh Leiva MD [address] [facility] [address] [place] [phone] Acute injury of kidney (HCC); Chronic kidney disease, stage 2 (mild); Hypertension; Type 2 diabetes mellitus with diabetic chronic kidney disease (HCC) Social History Tobacco Use Types Packs/Day [...] on file documented as of this encounter Visit Diagnoses Diagnosis Acute injury of kidney Chronic kidney disease, stage 2 (mild) Hypertension Type 2 diabetes mellitus with diabetic chronic kidney disease (HCC) documented in this encounter Care Teams Hash Slinger Relationship Specialty Start Date End Date Leticia Mayo PA [address] [place] [phone] PCP - General Physician Hub Cutter Apprentice 07/10/20 documented as of this encounter
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
--- OUTSIDE RECORDS SUMMARY | 2024-04-02 15:42 | XMS_ITS | Encounter Summary ---
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
--- OUTSIDE RECORDS SUMMARY | 2024-04-02 15:42 | XMS_ITS | Encounter Summary ---
Author Organization [facility] Address [address] [facility] [address] [place] [address] Phone Care Team Providers Care Motor And Generator Brush Maker Name Role Phone Leticia Mayo Primary Care Provider [phone] Encounter Details Date Type Department Care Team ([facility] st Contact Info) Description 09/21/2020 Orders Only [facility] [address] [place] [address] Oh Leiva MD [address] [facility] [address] [place] [phone] Acute kidney failure, not otherwise specified (HCC) Social History Tobacco Use Types Packs/Day Years Used Date Smoking Tobacco: Never Smokeless Tobacco: Never Alcohol Use Standard Drinks/Week Comments Never 0 (1 standard drink = 0.6 oz pur e alcohol) Comments Unknown Sex and Gender Information Value Date Recorded Sex Assigned at Not on file Legal Sex Female 10:23 AM EDT Gender Identity Not on file Sexual Orientation Not on file documented as of this encounter Plan of Treatment Not on file documented as of this encounter Visit Diagnoses Diagnosis Acute kidney failure, not otherwise specified (HCC) documented in this encounter Care Teams Motor And Generator Brush Maker Relationship Specialty Start Date End Date Leticia Mayo PA [address] [place] [phone] PCP - General Physician Stock Shipper 07/10/20 documented as of this encounter
--- OUTSIDE RECORDS SUMMARY | 2024-04-02 15:43 | XMS_ITS | Encounter Summary ---
Author Organization [facility] Address [address] [place] [phone] Phone Care Team Providers Care Solvent Process Extractor Operator Name Role Phone Leticia Mayo Primary Care Provider Encounter Details Date Type Department Care Team ([facility] st Contact Info) Description 03/08/2024 Treatment [facility]. [address] [place] [phone] Pinky Kincaid MD [address] [phone] Social History Tobacco Use Types Packs/Day Years [...] on file documented as of this encounter Miscellaneous Notes * Dialysis Note - Pinky Kincaid MD - 03/08/2024 12:00 AM EST Patient: Akanksha Tran : 1950 Note Type: Dialysis Rounds-Basic Service Date: 03/08/2024 This patient was personally seen for a basic visit as part of routine monthly dialysis care for end stage renal disease. Attending Car Stereo Installer: PINKY KINCAID MD Dialysis Location: [facility] Schedule: Tu-Th-Sa Shift: 2 OVERVIEW Patient is stable. COMMENTS: Note in dialysis digital asset manager ADEQUACY ASSESSMENT Kt/V, Natural Log 2.15 (02/14/24) 2.15 (01/24/24) UREA REDUCTION RATIO (%) 85 (02/14/24) 85 (01/24/24) BUN 61 (02/14/24) 82 (01/24/24) BUN Post Dialysis 9 (02/14/24) 12 (01/24/24) Creatinine 4.32 (02/14/24) 4.93 (01/24/24) Bicarbonate (CO2) 24 (02/14/24) 24 (01/24/24) Sodium 143 (02/14/24) 141 (01/24/24) ANEMIA ASSESSMENT Hgb 12.3 (03/01/24) 12.3 (02/28/24) 11.8 (02/21/24) Iron Saturation (TSat) 26 (02/14/24) 23 (01/24/24) Ferritin 1,500 (02/14/24) 1,619 (01/24/24) Iron 50 (02/14/24) 45 (01/24/24) TIBC 196 (02/14/24) 196 (01/24/24) MCV 103.4 (02/14/24) 104.0 (01/24/24) Platelets 333 (02/14/24) 499 (01/24/24) BMM ASSESSMENT Calcium, Adjusted Total 9.6 02/14/24 9.5 01/24/24 Calcium 9.6 02/14/24 9.5 01/24/24 Phosphorus, Serum 3.7 02/14/24 5.3 01/24/24 Ca*PO4 35.5 02/14/24 50.4 01/24/24 PTH, Intact 195 01/24/24 Vitamin D, 25-Hydroxy 16 01/24/24 Magnesium 2.6 02/14/24 2.8 01/24/24 Alkaline Phosphatase 99 02/14/24 87 01/24/24 Aluminum 6 02/21/24 NUTRITION ASSESSMENT Albumin 4.1 02/14/24 4.2 01/24/24 Potassium 4.2 02/14/24 4.5 01/24/24 ADDITIONAL LABS White Blood Cells 7.9 (02/14/24) 8.8 (01/24/24) Cholesterol 170 (01/24/24) HDL 66 (01/24/24) LDL-Calc 85 (01/24/24) Triglycerides 93 (01/24/24) Hep B Surface Antibody >1,000 (02/21/24) Uric Acid 8.1 (01/24/24) Signed by: PINKY KINCAID MD on 03/08/2024 at 12:38:17 PM Transcribed by: PINKY KINCAID MD on 03/08/2024 at 12:38:17 PM documented in this encounter Plan of Treatment Not on file documented as of this encounter Visit Diagnoses Not on filedocumented in this encounter Care Teams Solvent Process Extractor Operator Relationship Specialty Start Date End Date Leticia Mayo PA [address] [place] [phone] PCP - General Physician Social Science Research Assistant 07/10/20 documented as of this encounter
--- OUTSIDE RECORDS SUMMARY | 2024-04-02 15:43 | XMS_ITS | Encounter Summary ---
Author Organization [facility] Address [address] [place] [phone] Phone Care Team Providers Care Masonry Inspector Name Role Phone Leticia Mayo Primary Care Provider [phone] Encounter Details Date Type Department Care Team ([facility] st Contact Info) Description 03/27/2024 Treatment [facility] P. [address] [place] [phone] Pinky Kincaid MD [address] [phone] Social History Tobacco Use Types [...] Dialysis Note - Pinky Kincaid MD - 03/27/2024 12:00 AM EST Patient: Akanksha Tran : 1950 Note Type: Dialysis Rounds-Comp Service Date: 03/27/2024 This patient was personally seen for a complete visit as part of routine monthly dialysis care for end stage renal disease. Attending Bleach Mixer: PINKY KINCAID MD Dialysis Location: [facility] Schedule: Tu-Th-Sa Shift: 2 OVERVIEW Patient is stable. 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 BP AND FLUID ASSESSMENT Acceptable blood pressure. Fluid status acceptable. ADEQUACY ASSESSMENT Target met. Prescription compliance acceptable. Kt/V, Natural Log 1.95 (03/20/24) 2.15 (02/14/24) 2.15 (01/24/24) UREA REDUCTION RATIO (%) 82 (03/20/24) 85 (02/14/24) 85 (01/24/24) BUN 76 (03/20/24) 61 (02/14/24) 82 (01/24/24) BUN Post Dialysis 14 (03/20/24) 9 (02/14/24) 12 (01/24/24) Creatinine 4.74 (03/20/24) 4.32 (02/14/24) 4.93 (01/24/24) Bicarbonate (CO2) 25 (03/20/24) 24 (02/14/24) 24 (01/24/24) Sodium 139 (03/20/24) 143 (02/14/24) 141 (01/24/24) ACCESS ASSESSMENT Vascular access examined. ANEMIA ASSESSMENT Anemia targets met. Hemoglobin at target. Hgb 12.2 (03/20/24) 12.3 (03/01/24) 12.3 (02/28/24) Iron Saturation (TSat) 76 (03/20/24) 26 (02/14/24) 23 (01/24/24) Ferritin 1,681 (03/20/24) 1,500 (02/14/24) 1,619 (01/24/24) Iron 148 (03/20/24) 50 (02/14/24) 45 (01/24/24) TIBC 196 (03/20/24) 196 (02/14/24) 196 (01/24/24) MCV 98.2 (03/20/24) 103.4 (02/14/24) 104.0 (01/24/24) Platelets 312 (03/20/24) 333 (02/14/24) 499 (01/24/24) BMM ASSESSMENT PTH within target. Phosphorus controlled. Calcium controlled. Calcium, Adjusted Total 9.5 03/20/24 9.6 02/14/24 9.5 01/24/24 Calcium 9.5 03/20/24 9.6 02/14/24 9.5 01/24/24 Phosphorus, Serum 4.4 03/20/24 3.7 02/14/24 5.3 01/24/24 Ca*PO4 41.8 03/20/24 35.5 02/14/24 50.4 01/24/24 PTH, Intact 188 03/20/24 195 01/24/24 Vitamin D, 25-Hydroxy 16 01/24/24 Magnesium 2.8 03/20/24 2.6 02/14/24 2.8 01/24/24 Alkaline Phosphatase 80 03/20/24 99 02/14/24 87 01/24/24 Aluminum 2 03/20/24 6 02/21/24 NUTRITION ASSESSMENT Albumin at goal. Albumin 4.2 03/20/24 4.1 02/14/24 4.2 01/24/24 Potassium 3.9 03/20/24 4.2 02/14/24 4.5 01/24/24 ADDITIONAL LABS White Blood Cells 4.3 (03/20/24) 7.9 (02/14/24) 8.8 (01/24/24) Cholesterol 208 (03/20/24) 170 (01/24/24) HDL 78 (03/20/24) 66 (01/24/24) LDL-Calc 107 (03/20/24) 85 (01/24/24) Triglycerides 115 (03/20/24) 93 (01/24/24) Hep B Surface Antibody >1,000 (03/20/24) >1,000 (02/21/24) Uric Acid 8.2 (03/20/24) 8.1 (01/24/24) ADDITIONAL COMMENT COMMENTS: 03/23/24 stable Signed by: PINKY KINCAID MD on 03/27/2024 at 12:59:17 PM documented in this encounter Plan of Treatment Not on file documented as of this encounter Visit Diagnoses Not on filedocumented in this encounter Care Teams Masonry Inspector Relationship Specialty Start Date End Date Leticia Mayo PA [address] [place] [phone] PCP - General Physician Line Ordering Clinician 07/10/20 documented as of this encounter
--- OUTSIDE RECORDS SUMMARY | 2024-04-02 15:43 | XMS_ITS | Encounter Summary ---
Author Organization [facility] Address [address] [place] [phone] Phone Care Team Providers Care Clinical Haematologist Name Role Phone Leticia Mayo Primary Care Provider [phone] Encounter Details Date Type Department Care Team ([facility] st Contact Info) Description 03/23/2024 Treatment [facility] P. [address] [phone] Za Streeter MD [address] [phone] Social History Tobacco Use Types [...] encounter Miscellaneous Notes * Dialysis Note - Za Streeter MD - 03/23/2024 12:00 AM EST Patient: Akanksha Tran : 1950 Note Type: Dialysis Rounds-Basic Telehealth Service Date: 03/23/2024 Telehealth encounter using audiovisual technology, performed according to state requirements. Appropriate patient consent obtained. This patient was personally seen for a basic visit as part of routine monthly dialysis care for end stage renal disease. 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 ADEQUACY ASSESSMENT Kt/V, Natural Log 2.15 (02/14/24) 2.15 (01/24/24) UREA REDUCTION RATIO (%) 82 (03/20/24) 85 (02/14/24) 85 (01/24/24) BUN 76 (03/20/24) 61 (02/14/24) 82 (01/24/24) BUN Post Dialysis 14 (03/20/24) 9 (02/14/24) 12 (01/24/24) Creatinine 4.74 (03/20/24) 4.32 (02/14/24) 4.93 (01/24/24) Bicarbonate (CO2) 25 (03/20/24) 24 (02/14/24) 24 (01/24/24) Sodium 139 (03/20/24) 143 (02/14/24) 141 (01/24/24) ANEMIA ASSESSMENT Hgb 12.2 (03/20/24) 12.3 (03/01/24) 12.3 (02/28/24) Iron Saturation (TSat) 76 (03/20/24) 26 (02/14/24) 23 (01/24/24) Ferritin 1,681 (03/20/24) 1,500 (02/14/24) 1,619 (01/24/24) Iron 148 (03/20/24) 50 (02/14/24) 45 (01/24/24) TIBC 196 (03/20/24) 196 (02/14/24) 196 (01/24/24) MCV 98.2 (03/20/24) 103.4 (02/14/24) 104.0 (01/24/24) Platelets 312 (03/20/24) 333 (02/14/24) 499 (01/24/24) BMM ASSESSMENT Calcium, Adjusted Total 9.5 03/20/24 9.6 02/14/24 9.5 01/24/24 Calcium 9.5 03/20/24 9.6 02/14/24 9.5 01/24/24 Phosphorus, Serum 4.4 03/20/24 3.7 02/14/24 5.3 01/24/24 Ca*PO4 41.8 03/20/24 35.5 02/14/24 50.4 01/24/24 PTH, Intact 188 03/20/24 195 01/24/24 Vitamin D, 25-Hydroxy 16 01/24/24 Magnesium 2.8 03/20/24 2.6 02/14/24 2.8 01/24/24 Alkaline Phosphatase 80 03/20/24 99 02/14/24 87 01/24/24 Aluminum 6 02/21/24 NUTRITION ASSESSMENT Albumin 4.2 03/20/24 4.1 02/14/24 4.2 01/24/24 [...] ADDITIONAL COMMENT COMMENTS: 03/23/24 stable Signed by: ZA STREETER MD on 03/24/2024 at 01:44:54 AM Transcribed by: ZA STREETER MD on 03/24/2024 at 01:44:54 AM documented in this encounter Plan of Treatment Not on file documented as of this encounter Visit Diagnoses Not on filedocumented in this encounter Care Teams Clinical Haematologist Relationship Specialty Start Date End Date Leticia Mayo PA [address] [place] [phone] PCP - General Physician Well Site Drilling Engineer 07/10/20 documented as of this encounter
--- OUTSIDE RECORDS SUMMARY | 2024-04-02 15:43 | XMS_ITS | Encounter Summary ---
Author Organization [facility] Address [address] [facility] [address] [facility] [address] [place] [address] Phone Care Team Providers Care Instant Potato Processing Supervisor Name Role Phone Leticia Mayo Primary Care Provider [phone] Encounter Details Date Type Department Care Team ([facility] st Contact Info) Description 08/07/2021 Telephone [facility] [address] [facility] [address] [place] [phone] Oh Leiva MD [address] [facility] [address] [place] [phone] Social History Tobacco Use Types Packs/Day Years [...] as of this encounter Miscellaneous Notes * Telephone Encounter - Eileen Ferguson MA - 08/07/2021 2:28 PM EDT This pt is a dialysis pt * Telephone Encounter - Edith Epstein - 08/07/2021 1:12 PM EDT Pt called, she needs a refill for torsemide, Carvedilol and clonidine Please send to the [facility] on [address] Thank you documented in this encounter Plan of Treatment Not on file documented as of this encounter Visit Diagnoses Not on filedocumented in this encounter Care Teams Instant Potato Processing Supervisor Relationship Specialty Start Date End Date Leticia Mayo PA [address] [place] [phone] PCP - General Physician Pigment Pusher 07/10/20 documented as of this encounter
--- OUTSIDE RECORDS SUMMARY | 2024-04-02 15:43 | XMS_ITS | Data Portability ---
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 Referral None recorded. Procedures None recorded. Surgeries None recorded. Imaging US, head + neck, soft tissue 2023 024 [facility] (Imaging), [address], [place], [address], 08/20/2023 19:40:32 Medication Orders triamcino lone acetonide 0.1 % topical cream [address] [address] ([facility] 827), 70 [facility], [place], [place], [id number], 01/23/2024 12:51:50 Patient TargetsNo targets recorded. Patient Instructions Encounter Date Encounter Id Patient Instructions Last Modified By Organization Details Last Modified Time 12/03/2023 [id number] After a discussi on of treatment options, which included consideration of best practices and patient preferences, the following treatment plan and objectives were adopted: Vitamin D and, Calcium rich diet, exercise daily, resistance training twice per week, Mediterranean diet reviewed. [email or web address] Not available 12/03/2023 13:23:51 Reason for Referral None Reported. Results Created Date Observation Date Name Description Value Unit Range Abnormal Flag Note LastModifiedBy Organization Detail LastModifiedTime 08/25/19 24 08/25/2023 HGB A1C hemoglobin A1C 5.4 % 4.8-6. [...] furth er confi rmati on Not Available [address], [address], 08/25/2023 13:00:49 08/25/19 24 08/25/2023 HGB A1C estimated average glucose 108.3 mg/dL Not Available [address], [address], 08/25/2023 13:00:49 08/20/19 24 08/20/2023 US, head [...] x 1.1 x 3.6 cm. For compar srinivasan the right subman dibula r gland is [...] g Physic lori: Michelle Armstrong ms [email or web address] [facility] (Imaging) [address], [place], [address], 08/21/2023 13:12:34 09/19/19 24 08/20/2023 MAMMO , donald mathewsg No observ ation record ed. [email or web address] [place] [address] [place], [address], 09/19/2023 10:52:29 12/12/19 24 12/05/2023 US, renal No observ ation record ed. [facility] [address] [place], [address], 12/15/2023 18:27:16 01/08/2001/08/2024 XR, hip No observ ation record ed. [facility] [address] [place], [address], 01/16/2024 14:07:37 01/08/20 24 01/08/2024 CT, cervi ed spine No observ ation record ed. [facility] [address] [place], [address], 01/16/2024 14:07:37 01/08/20 24 01/08/2024 CT, cervi ed spine No observ ation record ed. [facility] [address] [place], [address], 01/16/2024 14:07:38 01/09/20 24 01/08/2024 XR, chest No observ ation record ed. [facility] [address] [place], [address], 01/16/2024 14:07:38 01/10/20 24 01/10/2024 XR, pelvi s No observ ation record ed. [facility] [address] [place], [address], 01/16/2024 14:07:38 Result Notes None recorded. Problems Name Problem SNOMED Code Status Onset Date Resolution Date Notes Provider Name and Address Organization Details Recorded Time Benign hanny l hyperten minesh 7274464 Active Not Available [facility] 3 13:47:34 Hanny l hyperten minesh 47338024 Active Not Available [facility] 3 13:47:35 Common cold 35998567 Completed 01/27/2013 Not Available [facility] 3 02:00:30 Motion sickness 88490588 Active Not Available [facility] 3 13:47:35 Diaphrag matic hernia 86632003 Active 2008 Not Available [facility] 3 13:47:35 Benign neoplasm of large intestin e 43695927 Active 2008 Not Available [facility] 3 13:47:35 Chest pain 30745833 Completed 200801/27/2013 Not Available [facility] 3 02:01:46 Knee pain Active Not Available [facility] 3 13:47:35 Hyperlip idemia 80665644 Active 2018 Not Available [facility] 3 13:47:35 Degenera tive disorder of macula 622029625 Active 2019 Not Available [facility] 3 13:47:35 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 294851996 Active 2020 Not Available [facility] 3 13:47:35 Hypercal cemia 70776952 Active 2021 Per d/c summary [place] Not Available [facility] 3 13:47:35 Acute-on -chronic renal failure 839711930 Active 2021 Per d/c summary [place]; lists renal disease stage V Not Available [facility] 3 13:47:34 Chronic kidney disease stage 5 324241323 Active 2021 GFR = 9 on 12/25/21 Not Available [facility] 3 13:47:35 Dialysis procedur e Active 2021 on dialysis per Marguerite Mayo note 02/08/22 Not Available [facility] 3 13:47:34 End-stag e renal disease 10962821 Active 2022 Not Available [facility] 3 13:47:35 Fracture of neck of femur 2037009 Active 2023 [facility], surgical correcti on [facility] 14:50:28 Problem Notes None recorded. Procedures Surgical History Date Name Laterality Status Provider Name and Address Organization Details Recorded Time 01/09/20 24 partial left hip replacement by prosthesis completed ALICIA Krishna [facility] 01/14/2024 14:18:38 01/09/20 24 open reduction of fracture with internal fixation completed Tracey Canales RN [facility] 01/23/2024 12:01:13 12/03/19 24 Medicare Wellness Visit completed Ilana Turner MA [facility] 12/03/2023 09:08:16 12/03/19 24 Cardiovascular disease risk reduction counseling completed DELPHINE Salvador [address] [place] [address], [address], [facility] 12/03/2023 13:23:20 12/03/19 24 Advanced Care Planning completed DELPHINE Salvador [address] [place] [address], [address], [facility] 12/03/2023 13:01:54 11/30/19 23 Medicare Wellness Visit completed Ilana Turner MA [facility] 11/29/2022 14:37:36 04/09/19 22 Medicare Wellness Visit completed Cari Hicks MA [facility] 04/09/2021 15:57:28 04/09/19 22 Alcohol use screening completed Cari Hicks MA [facility] 04/09/2021 15:57:28 04/09/19 22 Cardiovascular disease risk reduction counseling completed Cari Hicks MA [facility] 04/09/2021 15:57:28 01/26/20 21 Diabetes Education completed Tracey Canales RN [facility] 01/25/2021 14:41:58 01/19/20 21 Glucose Meter Teaching completed Enzo Antunez RN [facility] 01/18/2021 14:34:01 10/31/19 21 angioplasty of renal artery completed Mera Weiss MA [facility] 11/02/2020 11:56:08 05/13/19 20 Medicare Wellness Visit completed Pema Dubongabriel Gricelda [facility] 05/13/2019 14:55:20 05/13/19 20 prevention-cardiov ascular risk reduction counseling completed Pema Emery [facility] 05/13/2019 14:55:20 05/13/19 20 prevention-annual alcohol misuse screening completed Pemagricelda Emery Gricelda [facility] 05/13/2019 14:55:20 04/23/19 19 Medicare Wellness Visit completed Haley Shields [facility] 04/23/2018 13:49:42 01/30/20 17 Medicare Wellness Visit completed Cari Hicks MA [facility] 01/29/2017 11:18:50 04/08/19 17 [address]: Therapeutic Exercise completed Heather Amato, PT [address] [place], [address], [facility] 04/08/2016 13:56:44 04/08/19 17 Treatment and Advice completed Heather Amato, PT [address] [place], [address], [facility] 04/08/2016 13:52:10 03/25/19 17 Physical Activity Counselling completed Heather Amato, PT [address] [place], [address], [facility] 03/25/2016 22:21:15 03/25/19 17 19857: PT Eval, Moderate Complexity completed Heather Amato, PT [address] [place], [address], [facility] 03/25/2016 22:21:11 03/25/19 17 Treatment and Advice completed Heather Amato, PT [address] [place], [address], [facility] 03/25/2016 13:04:54 12/25/19 16 CCM - Health Assessment and Education completed Radha Chu MA [facility] 12/25/2015 10:42:52 12/11/19 16 Medicare Wellness Visit completed Cari Hicks MA [facility] 12/11/2015 09:46:08 12/02/19 09 completed Not Available [facility] 01/24/2011 06:05:52 12/02/19 09 completed Not Available [facility] 01/24/2011 06:05:52 repair of inguinal hernia completed DELPHINE Salvador [address] [place] [address], [address], [facility] 02/08/2022 14:16:16 Total Hysterectomy completed Not Available [facility] 01/24/2011 06:06:16 Imaging Results Imaging Date Name Status LastModified by Organiz ation Details LastModified Time 08/20/2023 US, head + neck, soft tissue completed [address] (Imaging) [address] , [place], [address], 08/21/2023 13:12:34 08/20/2023 MAMMO, screening completed [address] [facility] [address] [place] [address] [place], [address], 09/19/2023 10:52:29 12/05/2023 US, renal completed [address], [address], 12/15/2023 18:27:16 01/08/2024 XR, hip completed [address], [address], 01/16/2024 14:07:37 01/08/2024 CT, cervical spine completed [address], [address], 01/16/2024 14:07:37 01/08/2024 CT, cervical spine completed [address], [address], 01/16/2024 14:07:38 01/08/2024 XR, chest completed [email or web address] [place], [address], 01/16/2024 14:07:38 01/10/2024 XR, pelvis completed [email or web address] [place] [place], [address], 01/16/2024 14:07:38 Procedure Notes None recorded. Medical [...] by oral route as needed. 2023 active Not Available Not Available Not Avai lable carvedilo l 6.25 mg tablet TAKE 1 TABLET BY MOUTH TWICE A DAY active Not Available Not Available No [...] Wed and Sat 04/27 completed Finished coursed 6.23.21 AAS Not Available Not Available Not Available [...] directed . 2021 active Per d/c summary [place] Not Available Not Available Not Available Gentle Laxative (bisacody l) 5 mg tablet,de layed release TAKE 4 TABLETS BY MOUTH WITH 8 0Z OF WATER ONCE THE DAY BEFORE PROCEDUR E 11/02 completed Not Available Not Available Not Available docusate sodium 100 mg capsule Take 1 capsule twice a day by oral route. 2023 active Colace 04/02/24 oad Not Available Not Available Not Available hydrochlo [...] mouth twice daily as directed 2023 active Not Available Not Available Not Avai lable Zostavax (PF) 19,400 unit/0.65 mL subcutane ous [...] Available Not Available No t Available FreeStyle [place] Lite kit 11/08 completed Not Available Not Available Not Available Vitamin D3 50 mcg (2,000 unit) tablet 1 tab daily 11/08 completed Not Available Not Available Not Available GaviLyte- G 236 gram-22.7 4 gram-6.74 gram-5.86 gram oral solution 11/02 completed Not Available Not Available Not Available Eliquis 2.5 mg tablet PLEASE SEE ATTACHED FOR DETAILED DIRECTIO NS active not taking 04/02/24 oad Not Available Not Available Not Available Adult 50 Plus Probiotic 4 billion cell capsule Take 1 capsule every day by oral route as directed . 2023 active Not Available Not Available Not Avai lable potassium chloride ER 20 mEq tablet,ex tended release TAKE 1 TO 2 TABLETS BY MOUTH EVERY DAY 02/08 completed Per d/c summary tiago Rizvi holding the 20 mEq daily, needs to [...] Not Available Not Available Not Available Fluad 2017- 65yr up(PF)45 mcg(15 mcgx3)/0. 5 mL intramusc ular syringe inject 0.5 millilit er intramus cularly 11/02 completed Not Available Not Available Not Available Vitals Date Recorded Body height Provider Name an d Address Organization Details Last Updated DateTime 04/14/2023 165.1 cm Sharmila Rachel MA [facility] 04/14/2023 14:33:38 Date Recorded Body mass index (BMI) Body weight Provider Name and Address Organization Details Last Updated DateTime 04/14/2023 19.7 kg/m2 79815.6 g Sharmila Rachel MA [facility] 04/14/2023 14:33:51 Date Recorded Oxygen saturation Oxygen saturation in Arterial blood by Pulse oximetry Provider Name and Address Organization Details Last Updated DateTime 04/14/2023 99 % 99 % Sharmila Rachel MA [facility] 04/14/2023 14:42:06 Date Recorded Heart rate Provider Name an d Address Organization Details Last Updated DateTime 04/14/2023 86 /min Sharmila Rachel MA [facility] 04/14/2023 14:42:20 Date Recorded Body height Provider Name an d Address Organization Details Last Updated DateTime 08/13/2023 165.1 cm Ilana Turner MA [facility] 08/13/2023 14:34:28 Date Recorded Body mass index (BMI) Body weight Provider Name and Address Organization Details Last Updated DateTime 08/13/2023 20.1 kg/m2 34044.24 g Ilana Turner [facility] 08/13/2023 14:34:39 Date Recorded Heart rate Provider Name an d Address Organization Details Last Updated DateTime 08/13/2023 96 /min Ilana Turner [facility] 08/13/2023 14:41:41 Date Recorded Body height Provider Name an d Address Organization Details Last Updated DateTime 09/05/2023 165.1 cm Celena Alston [facility] 09/05/2023 14:29:41 Date Recorded Body mass index (BMI) Body weight Provider Name and Address Organization Details Last Updated DateTime 09/05/2023 20.1 kg/m2 31312.88 g Celena Alston [facility] 09/05/2023 14:29:52 Date Recorded Body temperature Provider Name a nd Address Organization Details Last Updated DateTime 09/05/2023 99.4 [degF] Celena Alston [facility] 09/05/2023 14:35:00 Date Recorded Heart rate Provider Name an d Address Organization Details Last Updated DateTime 09/05/2023 82 /min Celena Alston [facility] 09/05/2023 14:36:21 Date Recorded Oxygen saturation Oxygen saturation in Arterial blood by Pulse oximetry Provider Name and Address Organization Details Last Updated DateTime 09/05/2023 98 % 98 % Celena Alston [facility] 09/05/2023 14:36:26 Date Recorded Body height Provider Name an d Address Organization Details Last Updated DateTime 12/03/2023 165.1 cm Ilana Turner [facility] 12/03/2023 11:20:24 Date Recorded Body mass index (BMI) Body weight Provider Name and Address Organization Details Last Updated DateTime 12/03/2023 20.1 kg/m2 35391.68 liss Turner [facility] 12/03/2023 11:21:04 Date Recorded Heart rate Provider Name an d Address Organization Details Last Updated DateTime 12/03/2023 84 /min Ilana Turner [facility] 12/03/2023 11:26:34 Date Recorded Body height Provider Name an d Address Organization Details Last Updated DateTime 04/02/2024 165.1 cm Ilana Turner [facility] 04/02/2024 11:42:31 Date Recorded Body mass index (BMI) Body weight Provider Name and Address Organization Details Last Updated DateTime 04/02/2024 19.4 kg/m2 49471.15 g Ilana Turner [facility] 04/02/2024 11:42:44 Date Recorded Heart rate Provider Name an d Address Organization Details Last Updated DateTime 04/02/2024 74 /min Ilana Turner [facility] 04/02/2024 11:47:12 Date Recorded Oxygen saturation Oxygen saturation in Arterial blood by Pulse oximetry Provider Name and Address Organization Details Last Updated DateTime 04/02/2024 99 % 99 % Ilana Turner [facility] 04/02/2024 11:47:21 Date Recorded Systolic blood pressure Diastolic blood pressure Provider Name and Address Organization Details Last Updated DateTime 04/14/2023 142 mm[Hg] 70 mm[Hg] Sharmila Rachel [facility] 04/14/2023 14:41:35 Date Recorded Systolic blood pressure Diastolic blood pressure Provider Name and Address Organization Details Last Updated DateTime 08/13/2023 134 mm[Hg] 60 mm[Hg] Ilanagreg Turner [facility] 08/13/2023 14:41:39 Date Recorded Systolic blood pressure Diastolic blood pressure Provider Name and Address Organization Details Last Updated DateTime 09/05/2023 130 mm[Hg] 64 mm[Hg] Celena Alston Gricelda [facility] 09/05/2023 14:36:19 Date Recorded Systolic blood pressure Diastolic blood pressure Provider Name and Address Organization Details Last Updated DateTime 12/03/2023 114 mm[Hg] 56 mm[Hg] Ilana Estradatiffany [facility] 12/03/2023 11:26:29 Date Recorded Systolic blood pressure Diastolic blood pressure Provider Name and Address Organization Details Last Updated DateTime 04/02/2024 134 mm[Hg] 68 mm[Hg] Ilana Estradatiffany [facility] 04/02/2024 11:47:16 Social History Question Answer Notes LastModified by Organizat ion Details LastModified Time Tobacco Smoking Status Former Smoker quit 40 yrs ago DELPHINE Salvador [address] [place] [address], [place], [address], [facility] 11/09/2010 10:43:59 Do You Have An Advance Directive? No [id number] Information not available 01/24/2011 What Is Your Level Of Alcohol Consumption? None Information not available 09/08/2014 Do You Wear A Helmet When Biking? 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 No Information not available 11/29/2022 When Did You Quit Smoking? 16+yearssincel astcigarette Information not available 04/07/2015 Are There Any Guns Present In Your Home? No [email or web address] Information not available 04/23/2018 Do You Use Insect Repellent Routinely? No Information not available 11/29/2022 Live Alone Or With Others? With Others With Son [email or web address] Information not available 05/13/2019 Does The Patient Have Difficulty Speaking Ukrainian? No Information not available 09/08/2014 Does The Patient Have Difficulty Reading Ukrainian? No Information not available 09/08/2014 Patient Has Health Care Proxy Signed And In Chart Yes Mejia Tran, Son, [email or web address] Information not available 04/24/2018 CCM Consent Discussion 04/10/2022 [email or web address] Information not available 04/18/2022 Marital Status Information not available 01/24/2011 Mosquito Repellent Used Routinely Yes Information not available 07/15/2013 What Was The Date Of Your Most Recent Tobacco Screening? 04/02/2024 Information not available 04/02/2024 How Many Children Do You Have? 2 Information not available 01/24/2011 What Is Your [...] Sporting Activities Do You Participate In? None Information not available 04/23/2018 General Stress Level Medium Information not available 12/11/2015 Do You Use Any Illicit Or Recreational Drugs? No [email or web address] Information not available 03/20/2022 Do You Use Sunscreen Routinely? Yes Information not available 11/29/2022 How Many Years Have You Smoked Tobacco? 50 [email or web address] Information not available 08/10/2020 Do You Or Have You Ever Used Any Other Forms Of Tobacco Or Nicotine? No [email or web address] Information not available 03/20/2022 Sex: Female Functional [...] Condition Response Cataracts Y Macular Degeneration Y Hypertension Y GERD Y RENAL / GENITOURINARY Gynecological History Statement/Question Response Menses Monthly N History of Abnormal Pap N Obstetrics History GPAL:G 0 P 0 0 0 0 Immunizations Vaccine Type Date Status Note Provider Nam e and Address Organization Details Recorded Time Influenza, high-dose, trivalent, PF 6 completed Not Available [facility] 03/27/2019 02:27:42 zoster live 6 completed Not Available [facility] 03/27/2019 02:21:04 Influenza, high-dose, trivalent, PF 7 completed Not Available [facility] 03/27/2019 02:37:12 influenza, unspecified formulation 5 completed Not Available [facility] 07/31/2022 13:47:35 Influenza, high-dose, quadrivalent, PF 0 completed Cora Chirinos RN [facility] 12/21/2019 14:51:11 Influenza, high-dose, trivalent, PF 9 completed Not Available [facility] 07/31/2022 13:47:35 Influenza, split virus, trivalent, preservative 0 completed Not Available [facility] 03/27/2019 02:38:45 Tdap 0 completed Not Available [facility] 03/27/2019 02:15:22 pneumococcal polysaccharide PPV23 2 completed CHICHO Painter, [facility] 04/27/2021 12:04:04 SARS-COV-2 (COVID-19) vaccine, UNSPECIFIED 1 completed Not Available [facility] 07/31/2022 13:47:35 SARS-COV-2 (COVID-19) vaccine, UNSPECIFIED 1 completed Not Available [facility] 07/31/2022 13:47:35 Influenza, high-dose, quadrivalent, PF 3 completed DELPHINE Salvador [address] [place] [address], [address], [facility] 11/30/2022 16:24:30 Influenza, high-dose, trivalent, PF 4 completed Isidra Lopez LPN [facility], [facility] 12/03/2023 11:40:51 Td (adult), 2 Lf tetanus toxoid, preservative free, adsorbed 4 completed [facility] [place] [facility] 12/03/2023 14:06:15 influenza, unspecified formulation 1 completed Not Available [facility] 07/31/2022 13:47:35 COVID-19, mRNA, LNP-S, PF, 30 mcg/0.3 mL dose 1 completed Not Available [facility] 07/31/2022 13:47:35 COVID-19, mRNA, LNP-S, PF, 30 mcg/0.3 mL dose 2 completed Not Available [facility] 07/31/2022 13:47:35 zoster recombinant 2 completed Not Available [facility] 07/31/2022 13:47:35 zoster recombinant 2 completed Not Available [facility] 07/31/2022 13:47:35 COVID-19, mRNA, LNP-S, bivalent, PF, 30 mcg/0.3 mL dose 2 completed Not Available [facility] 07/31/2022 13:47:35 Influenza, high-dose, quadrivalent, PF 2 completed Not Available [facility] 07/31/2022 13:47:35 pneumococcal polysaccharide PPV23 2 completed Anni Bailon [facility] null, [facility] 12/11/2022 15:39:05 Respiratory syncytial virus (RSV) vaccine, unspecified 3 completed Jennifer Tello CMA null, [facility] 04/14/2023 16:38:38 Past Encounters Encounter ID Performer Location Encounter Start Date Encounter Closed Date Diagnosis/Indication Diagnosis SNOMED-CT Code Diagnosis ICD10 Code Diagnosis Note [id number] [facility] [place] [address] 12/01/2008 10:16:25 12/02/2008 07:02:11 [id number] [facility], [address]ICE [address] [place] [address] 05/04/2009 15:28:25 05/08/2009 09:04:48 [id number] [facility], [address] [place] [address] 06/02/2009 16:07:45 06/05/2009 12:21:22 [id number] [facility], [address] [place] [address] 12/08/2009 14:11:38 12/13/2009 12:44:05 [id number] [facility], [address] [place] [address] 08/24/2010 16:22:03 08/28/2010 14:41:25 [id number] [facility], [address] [place] [address] 11/09/2010 09:49:31 11/09/2010 10:55:30 [id number] [facility], [address] [place] [address] 02/21/2011 15:15:11 02/21/2011 17:46:58 [id number] Christophe Mayo MD [facility], [address] [place] [address] 02/24/2012 07:50:59 02/24/2012 09:16:18 [id number] Marci Aggarwal [facility], [address] [place] [address] 07/15/2013 07:55:45 07/15/2013 13:50:19 Adult health examination [id number] see Risk Assessment and Lifestyle Change Counseling section above elevated triglyceri desp increse fish, veggies Benign ess ential hypertension 7555435 Blood pressure at goal Blood pressure NOT at goal. Knee pain [id number] Kalani Esquivel [facility], [address] [place] [address] 09/08/2014 07:59:20 09/08/2014 09:05:16 Adult health examination [id number] see Risk Assessment and Lifestyle Change Counseling section above Benign ess ential hypertension 5476128 Blood pressure at goal . Sleep disorder 28917119 Increased frequency of urination 908383218 Knee pain 04674011 [id number] DELPHINE Salvador, [facility], [address] [place] [address] 04/07/2015 07:44:10 04/07/2015 08:39:03 Benign essential hypertension 6763846 I10 Blood pressure at goal increase demands with considerin g long term , husbands referrl discussed Screening for disorder 269107847 Z11.59 on f/u Screening mammography 24 546592 Z12.31 done [id number] VERA Jason, [facility], [address] [place] [address] 07/13/2015 13:36:53 07/13/2015 14:31:58 Acute upper respiratory infection 92477172 J06.9 Educated patient that URI is a [...] or failure to resolve in 2-4 weeks. [id number] DELPHINE Salvador, [facility], [address] [place] [address] 12/11/2015 09:38:07 12/11/2015 10:44:13 Adult health examination 961442437 Z00.00 see Risk Assessment and Lifestyle Change Counseling section above Counseling 431665499 Z71 .9 Sinusitis 10309844 J32.9 f/u 10-14 days- sooner any worsneing Active or passive immunization 124985172 Z23 [id number] DELPHINE Salvador, [facility], [address] [place] [address] 12/25/2015 10:33:38 12/25/2015 11:54:58 Sinusitis 79688222 J32.9 consulted with PCP, suspect ab resitance for sinusitis- Active or passive immunization 151487701 Z23 [id number] DELPHINE Salvador, [facility], [address] [place] [address] 01/22/2016 11:39:11 01/23/2016 16:00:44 Neck pain 36961352 M54.2 [id number] Heather hoang, PT Physical Therapy, [facility] [address] [place] [address] 03/25/2016 12:08:18 03/26/2016 07:50:32 Neck pain 42983059 M54.2 right and headache [id number] Heather hoang, PT Physical Therapy, [facility] [address] [place] [address] 04/08/2016 13:08:01 04/08/2016 14:20:16 Neck pain 47500367 M54.2 right and headache [id number] DELPHINE Salvador, [facility], [address] [place] [address] 06/06/2016 10:33:39 06/06/2016 11:47:15 Benign essential hypertension 6424459 I10 Blood pressure at goal [id number] DELPHINE Salvador, [facility], [address] [place] [address] 01/29/2017 10:49:15 01/29/2017 12:12:51 Adult health examination 142448573 Z00.00 see Risk Assessment and Lifestyle Change Counseling section above Counseling 034407511 Z71 .9 Benign ess ential hypertension 4516176 I10 Blood pressure at goal Active or passive immunization 382604904 Z23 Mixed hyperlipidemia 267 569877 E78.2 will increase fibre, exercise, a dd aspirin- consider statin if not controlled after 6 months [id number] DELPHINE Salvador, [facility], [address] [place] [address] 07/30/2017 10:33:28 07/30/2017 12:19:58 Benign essential hypertension 5940271 I10 Blood pressure at goal Rectal pain 54807430 K62 .89 [id number] Eileen Goodrich NP FP, [facility], [address] [place] [address] 08/13/2017 13:23:30 08/13/2017 15:15:05 [facility] [place] [id number] 1 -[place] ce-this is not a lyme rash [id number] Haley Shields , [facility], [address] [place] [address] 04/23/2018 13:00:35 04/23/2018 14:47:51 Adult health examination 948336235 Z00.00 see Risk Assessment and Lifestyle Change Counseling section above Counseling 217213178 Z71 .9 Depression screening 171 229323 Z13.89 depression screening tool administer ed, entered into emr, scored and discussed, time greater than 7.5 minutes Benign ess ential hypertension 9817106 I10 Blood pressure at goal [id number] Erica Alcantar NP FP, [facility], [address] [place] [address] 05/22/2018 12:49:29 05/22/2018 13:55:06 Upper respiratory infection 58092994 J06.9 Supportive therapy recommende d. See patient instructio ns below. [id number] DELPHINE Salvador, [facility], [address] [place] [address] 11/02/2018 10:55:22 11/02/2018 11:41:03 Benign essential hypertension 2827778 I10 Blood pressure at goal Hyperlipidemia 28154892 E78.5 Mixed hyperlipidemia 267 014908 E78.2 will increase fibre, exercise, a dd aspirin- WILL ADD statin as not controlled after 6 months [id number] DELPHINE Salvador, [facility], [address] [place] [address] 05/13/2019 14:30:58 05/13/2019 15:39:04 Adult health examination 160370200 Z00.00 see Risk Assessment and Lifestyle Change Counseling section above Counseling 453523412 Z71 .9 including cardiovasc ular risk reduction counseling Depression screening 171 Z13.89 depression screening tool administer ed, entered into emr, scored and discussed, time greater than 7.5 minutes Screening for alcohol abuse 928897878 Z13.39 Mixed hyperlipidemia 267 002681 E78.2 Cholestero l is at goal Continue to work on diet and exercise as discussed Essential hypertension 15244616 I10 at goal Knee pain 28173298 M25.5 68 gentle movement at home, range of motion , [facility] Age relate d macular degeneration 196664196 H35.30 geting shots every 3 months [id number] DELPHINE Salvador FP, [facility], [address] [place] [address] 11/12/2019 11:01:27 11/12/2019 14:28:53 Essential hypertension 53455547 I10 at goal 05/27- track home readings- f/u ith results Mixed hyperlipidemia 267 434649 E78.2 Cholestero l is at goal Continue to work on diet and exercise as discussed Backache 789619119 M54.9 exercise reviewed, alignment when sleeping to decrease AM back pain- f/u if not improving in 2-4 wks- consider xray [id number] Cora Chirinos RN , [facility], [address] [place] [address] 12/21/2019 07:22:40 12/22/2019 08:28:24 Active or passive immunization 548818409 Z23 [id number] DELPHINE Salvador FP, [facility], [address] [place] [address] 04/24/2020 11:38:54 05/01/2020 13:33:27 Neck pain 34860307 M54.2 neck strain- heat 10 mins every 2-3 hours, gentle ROM , keeping aymmetry Acute sinusitis 33675054 J01.90 tx sinusitis Benign ess ential hypertension 8329962 I10 Blood pressure at goal in past [id number] Leonila Goldstein CMA , [facility], [address] [place] [address] 05/26/2020 14:05:04 05/26/2020 16:20:16 Acute upper respiratory infection 13602245 J06.9 Suspect virus. Do covid testing for chills/ sweats, cough. Headache 15163686 R51.9 discussed craniosacr al therapy or chiropract ic or PT. She will wait and see as to the test result. 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 004035045 M31.31 continue nephrology f/u- consulted Dr Leiva today- over 40 minutes spent on visit [id number] DELPHINE Salvador FP, [facility], [address] [place] [address] 08/30/2020 11:20:37 09/01/2020 07:02:36 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 225293386 M31.31 continue nephrology f/u- consulted Dr Leiva today- will increase torsemide to 40 mg bid- recheck bmp in coming wk/nephrol ogy- over 40 minutes spent on visit [id number] Enzo Antunez RN FP, [facility], [address] [place] [address] 01/18/2021 13:40:29 01/26/2021 10:45:45 [id number] DELPHINE Salvador FP, [facility], [address] [place] [address] 01/25/2021 13:24:18 02/14/2021 13:55:03 Essential hypertension 43408360 I10 not at goal, spoke with nephologis t re BP goals- Dr Leiva will be reaching pt to f/u 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 [id number] Eileen Rubin MD FP, [facility], [address] [place] [address] 03/14/2021 13:37:14 03/15/2021 11:12:32 Urinary tract infectious disease 46801619 N39.0 Patient instructed to push fluids, to follow up for persistent or worsening symptoms or fever or back pain. 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 119730564 M31.31 continue nephrology f/u- [id number] DELPHINE Salvador, [facility], [address] [place] [address] 04/09/2021 15:43:11 04/26/2021 10:00:12 Adult health examination 608976418 Z00.00 see Risk Assessment and Lifestyle Change Counseling section above Counseling 336812913 Z71 .9 including cardiovasc ular risk reduction counseling Depression screening 171 970106 Z13.31 depression screening tool administer ed, entered into emr, scored and discussed, time greater than 7.5 minutes Screening for alcohol abuse 951564054 Z13.39 Essential hypertension 71518851 I10 at goal Mixed hyperlipidemia 267 318161 E78.2 Cholestero l is at goalPT HAS HAD 50 LB WT LOSS- questionin g if needsstain with LDL over a yr ago < 70- trial off - recheck in 3 months when it works for ptCAmpIdea to work on diet and exercise as discussed 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 Active or passive immunization 018045623 Z23 Benign ess ential hypertension 7014685 I10 At goal of less than 130/80. No need for medication change. 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 668856400 E11.9 due to prednsione - eleavted BS's - used to tx glomerunep hritis Chronic ki dney disease 610747098 N18.9 [id number] DELPHINE Vance FP, [facility], [address] [place] [address] 07/23/2021 13:29:13 09/03/2021 15:25:17 Herpes zoster 7892228 B02.9 - agree, rash most consistent with [...] 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 ekg nl- no ischemia. 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 Chronic ki dney disease 960346083 N18.9 known CKD 5, likely contributi ng to electrolyt e disturbanc e leading to N/V Malaise 602156548 R53.81 check labs below.advi sed ER she declines. Heart murmur 96923897 R0 1.1 mitral murmur, no signs of endocardit is or heart failure, probably old but she reports never heard before [id number] Anni Bailon CMA FP, [facility], [address] [place] [address] 02/08/2022 13:40:06 02/08/2022 14:46:16 Left inguinal hernia 845230483 K40.90 no pain, reducible- surgery eval when able Chronic renal failure 90 239413 N18.9 pt started dialysis this month- needs pap smear today to be on reanl transplant list Restless legs 26092156 G 25.81 suspect due to iron replacemen t- cont f/u with dialysis- instructed to cont iron supps/dial ysis Screening for malignant neoplasm of cervix 409379608 Z12.4 [id number] Akanksha Lamas MD , [facility], [address] [place] [address] 03/20/2022 08:30:17 03/20/2022 11:43:25 Urinary tract infectious disease 66433265 N39.0 will attempt to get urine sample for cxwill start abx empiricall ywill call pt with results if get samplecall if concerns( yani at [facility] notified not to fill macrobid) Dialysis procedure 19928 1001 Z99.2 End-stage renal disease 33204183 N18.6 pt will let dialysis know of med [id number] Akanksha Lamas MD , [facility], [address] [place] [address] 03/27/2022 11:22:48 03/28/2022 08:54:38 Urinary tract infectious disease 84399288 N39.0 no improvemen t with amoxilon cephalexin now, somewhat better, pt opt to continue ( offered stronger abx)will give urine for cx today, or take home cupcall if sx worsen before cx backpt agrees with plan [id number] DELPHNIE Salvador, [facility], [address] [place] [address] 04/03/2022 15:14:52 04/03/2022 17:04:27 Dysuria 31910660 R30.0 neg urine culture- pt will consult with nephrologi st- could consider antispasmo dic or topical estrogen- discussed not using any topical chemicals will f/u in coming wk [id number] DELPHINE Salvador, [facility], [address] [place] [address] 04/10/2022 13:50:34 04/10/2022 15:36:08 Dysuria 38429857 R30.0 neg urine culture- pt will consult with nephrologi st- could consider antispasmo dic or topical estrogen- discussed not using any topical chemicals will f/u in coming wk End-stage renal disease 87016613 N18.6 cont dialysis- f/u nephology Atrophic vaginitis 36975 000 N95.2 trial with estrogen cream Dizziness 133199124 R42 check labs- no orthosatti gn symptoms 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 719252039 E11.9 due to prednsione - eleavted BS's - used to tx glomerunep hritis, not on presently [id number] DELPHINE Salvador FP, [facility], [address] [place] [address] 06/17/2022 10:39:17 06/17/2022 11:42:00 Dysuria 02763895 R30.0 neg urine culture- pt will consult with nephrologi st- could consider antispasmo dic or topical estrogen- discussed not using any topical chemicals will f/u in coming wk 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 376981599 E11.9 due to prednsione - eleavted BS's - used to tx glomerunep hritis, not on presently [id number] Akanksha Lamas MD FP, [facility], [address] [place] [address] 06/26/2022 15:55:44 06/28/2022 15:58:47 Painful urging to urinate 33616807 R30.0 last several Ucx negative, treated empiricall ywill send urine for dip and ucxhold off on treatment today as i wonder if we are on the wrong path [id number] Akanksha Lamas MD FP, [facility], [address] [place] [address] 06/28/2022 09:20:57 06/28/2022 14:44:27 Increased frequency of urination 190356127 R35.0 urine results still pending, but last 4 cultures negativeof fered trial antispasmo dic vs urology referralpt will try medwill call with urine results End-stage renal disease 56193222 N18.6 pt will followup with renal about potassium, calcium, etc. those are things renal manages. PCP doesnt prescribe immunosupp ressants, and i am not sure what they are asking. 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 053934841 M31.31 continue nephrology f/u- Pain of ri ght shoulder joint 2692503082 7508093 M25.511 suspect strain- no s/s of rotator cuff injury Active or passive immunization 533104297 Z23 [id number] Ashley Mckeon NP FP, [facility], [address] [place] [address] 12/11/2022 15:12:49 12/11/2022 17:47:57 Dysuria 89219689 R30.0 Last UTI in June 2022,More frequent since starting dialysisWi ll refer to urology - pt has number and will f/u End-stage renal disease 83520513 N18.6 [facility] Recurrent urinary tract infection 971645340 N39.0 Referred to urology for eval. Urinary tr act infectious disease 57823851 N39.0 Unable to provide urine today -Given discomfort is 8/10 and sx consistent with prev UTI, will start bactrim.Pt will wait in [facility] for another 30 minutes to see if she can provide urine sample for culture. [id number] Eileen Rubin MD , [facility], [address] [place] [address] 04/14/2023 14:21:02 04/14/2023 15:14:06 Vaccination delayed 6810222800 03239 Z28.39 Td Mass of neck 811678005 R 22.1 Feels benign; could be lymph node or less likely, parotid gland. Observe for now. If not resolving in 2-4 weeks, we can get ultrasound . [id number] Eileen Rubin MD FP, [facility], [address] [place] [address] 08/13/2023 14:26:57 08/14/2023 13:44:13 Mass of neck 153368852 R22.1 We wiill start with ultrasound ; may need additional imaging if we cannot make a clear diagnosis Low back pain 129969168 M54.50 gentle stretching , heat, movement, tylenol. You could consider PT; you decline but will let me now [id number] ANNI NGUYEN, [employer] FP, [facility], [address] [place] [address] 09/05/2023 14:16:54 09/06/2023 20:59:38 Eruption 607746797 R21 Itchy, burning, erythema of face and [...] TC in one week if not improved [id number] Ilana Turner MA , [facility], [address] [place] [address] 12/03/2023 10:35:27 12/03/2023 12:14:34 Adult health examination 626177220 Z00.00 see Risk Assessment and Lifestyle Change Counseling section above Depression screening 171 547397 Z13.31 depression screening tool administer ed Screening for alcohol abuse 279642641 Z13.39 Alcohol use screening tool administer ed Active or passive immunization 298963299 Z23 End stage renal failure on dialysis 886091237 Z99.2 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 Follow up needed: pt to make a Advanced planning visit. Counseled by member of primary health care team 174018008 Z71.9 Today we discussed ways to reduce [...] Member ID Marion Member ID Guarantor Name 04/14/2023 2 [facility] - [facility] [id number] Akanksha Tran [id number] Akanksha Tran 04/14/2023 1 [place] [facility] Akanksha Carlinter [id number] 1 Akanksha Tran 08/13/2023 2 [facility] [id number] Akanksha Tran [id number] Akanksha Tran 08/13/2023 1 [place] [facility] Akanksha Carlinter [id number] Akanksha Carlinter 09/05/2023 2 [facility] [id number] Akanksha Tran [id number] Akanksha Tran 09/05/2023 1 [place] [facility] Akanksha Carlinter [id number] Akanksha Carlinter 12/03/2023 2 [facility] [id number] Akanksha Tran [id number] Akanksha Tran 12/03/2023 1 [place] [facility] Akanksha Carlinter [id number] 1 Akanksha Carlinter Notes Date Note Type Note Provider Name and Address Organization Details Recorded Time 4 text/html Patient is here for a lump under her throat, lump started to bother her last week& left ear ache. Lump was larger when she called on Friday. Started w ear ache a week ago, L side. No URI sx. Then noticed lump near L side of chin. Might be smaller now. Eileen Rubin MD [address] [place] [address], [phone], [facility] 04/14/2023 18:10:09 4 text/html L sided gland, [...] legs/feet. No new weakness Eileen Rubin MD [address] [place] [address], [phone], [facility] 08/13/2023 21:25:19 4 text/html Burning rash Started three days agoFirst noticed above eye then migrated to mid face and then yesterday to throatBurnsItchyUsed old lotion on face that was expiredNo new medsNot out in sun alotBenadryl did not helpNo paresthesiasNot outside a lotChills on the first dayNo n/v, headache, malaise, feverNot tenderNo recent infections ANNI RUSHING, [employer]-[address], [address], [facility] 09/05/2023 16:03:10 4 text/html Risk Assessment and [...] ischemic heart disease; No peripheral vascular disease (22813); No diabetes; No carotid artery stenosisVMG HypertensionReported [...] concerns Interested in flu and tetanus vax NICHOLE Anthony [facility] 12/03/2023 14:06:42 OBGyn Episode No OBEpisode recorded.
--- OUTSIDE RECORDS SUMMARY | 2024-04-02 15:43 | XMS_ITS | Clinical Summary ---
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 For 7 days. Active sevelamer carbonate (RENVELA) 800 MG tablet TAKE 1 TABLET BY MOUTH 3 TIMES A DAY WITH MEALS SWALLOW TABLET WHOLE DO NOT CRUSH, BREAK, OR CHEW. 270 tablet 1 2 Active amLODIPine (NORVASC) 10 MG tablet Take 1 tablet (10 mg total) by mouth 1 (one) time each day 90 tablet 3 2 Active torsemide (DEMADEX) 20 MG tabletIndicatio ns:Essential (primary) hypertension,An emia in chronic kidney disease TAKE 2 TABLETS BY MOUTH 1 TIME EACH DAY. 180 tablet 1 3 Active carvedilol (COREG) 6.25 MG tablet TAKE 1 TABLET BY MOUTH IN THE MORNING AND 1 TABLET IN THE EVENING. 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 Stage 5 chronic kidney disease 07/31/2020 Other acute kidney failure 07/10/2020 Renal osteodystrophy 07/10/2020 Anemia in chronic kidney disease 07/10/2020 Essential (primary) hypertension 07/06/2020 Resolved Problems Problem Noted Date Diagnosed Date Resolved Date Antineutrophil cytoplasmic a ntibody positive vasculitis 10/23/2020 11/22/2020 Acute nontraumatic kidney injury 07/31/2020 10/17/2020 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 07/31/2020 10/17/2020 Anemia in chronic kidney disease 07/22/2020 10/17/2020 Acute kidney failure, not otherwise specified 07/23/1911/22/2020 Antineutrophil cytoplasmic a ntibody positive vasculitis 07/10/2020 10/17/2020 Hyperlipidemia 07/06/2020 10/17/2020 Encounters Date Type Department Care Team Description 03/27/2024 Treatment [facility] [address] [address] Avi Kincaid MD 03/23/2024 Treatment [facility] [address] [address] Oh Leiva MD 03/08/2024 Treatment [facility] [address] [address] Avi Kincaid MD 02/28/2024 Treatment [facility] [address] [address] Avi Kincaid MD 02/14/2024 Treatment [facility] [address] [address] Avi Kincaid MD 01/31/2024 Treatment [facility] [address] [address] Avi Kincaid MD 01/27/2024 Treatment [facility] [address] [address] Oh Leiva MD 01/24/2024 Orders Only [facility] [address] [address] Avi Kincaid MD 01/24/2024 Treatment [facility] [address] [address] Avi Kincaid MD 01/03/2024 Treatment [facility] [address] [address] Avi Kincaid MD from Last 3 Months Family History Medical History Relation Comments Cancer Father Relation Status Comments Father Social History Tobacco Use Types Packs/Day Years Used Date Smoking Tobacco: Never Smokeless Tobacco: Never Tobacco Cessation:Counseling Given: Not Answered Alcohol Use Standard Drinks/Week Comments Never 0 (1 standard drink = 0.6 oz pur e alcohol) Comments Unknown Sex and Gender Information Value Date Recorded Sex Assigned at Not on file Legal Sex Female 10:23 AM EDT Gender Identity Not on file Sexual Orientation Not on file Last Filed Vital Signs Vital Sign Reading Time Taken Comments Blood Pressure 156/72 10/30/2021 1:30 PM EDT Pulse 75 10/30/2021 1:30 PM EDT Temperature - - Respiratory Rate - - Oxygen Saturation 99% 10/30/2021 1:30 PM EDT Inhaled Oxygen Concentration - - Weight 60.1 kg (132 lb 6.4 oz) 10/30/2021 1:30 P M EDT Height 167.6 cm (5' 6 ) 11/22/2020 2:47 PM EDT Body Mass Index 21.37 11/22/2020 2:47 PM EDT Plan of Treatment Health Maintenance Due Date Last Done Comments Breast Cancer Screening 1950 Hepatitis B Vaccine (1 of 5 - Risk Dialysis 4-dose series) 1969 Colorectal Cancer Screening: Annual FOBT 1998 Colorectal Cancer Screening: Colonoscopy 1998 Colorectal Cancer Screening: Sigmoidoscopy 1998 Pneumococcal Vaccine: 65+ Ye ars (2 of 2 - PCV) 04/27/2022 04/27/2021 Influenza Vaccine Completed 12/03/2023, , 12/02/2018, Additional history exists Procedures Procedure Name Priority Date/Time Associated Diagnosis Comments LIH (HC) Routine 03/30/2024 3:00 AM EST POTASSIUM Routine 03/30/2024 3:00 AM EST ALUMINUM LEVEL Routine 03/20/2024 3:00 AM EST FERRITIN Routine 03/20/2024 3:00 AM EST HEPATITIS C ABS W/REFLEX RNA DETECTR Routine 03/20/2024 3:00 AM EST CONFIRMATION TEST HCV Routine 03/20/2024 3:00 AM EST HEPATITIS B SURFACE ANTIGEN W/REFL CONFIRM Routine 03/20/2024 3:00 AM EST URIC ACID Routine 03/20/2024 3:00 AM EST TRANSFERRIN SATURATION Routine 3:00 AM EST LIPID PANEL Routine 03/20/2024 3:00 AM EST PROTEIN, TOTAL, SERUM Routine 03/20/2024 3:00 AM EST LIH (HC) Routine 03/20/2024 3:00 AM EST MAGNESIUM Routine 03/20/2024 3:00 AM EST ELECTROLYTE PANEL Routine 03/20/2024 3:0 0 AM EST LACTATE DEHYDROGENASE Routine 03/20/2024 3:00 AM EST GLUCOSE, RANDOM Routine 03/20/2024 3:00 AM EST CREATININE, SERUM Routine 03/20/2024 3:0 0 AM EST BILIRUBIN, TOTAL Routine 03/20/2024 3:00 AM EST AST Routine 03/20/2024 3:00 AM EST ALT Routine 03/20/2024 3:00 AM EST ALKALINE PHOSPHATASE Routine 03/20/2024 3:00 AM EST CALCIUM PHOSPHORUS PRODUCT, ADJUSTED (HC) Routine 03/20/2024 3:00 AM EST PTH, INTACT Routine 03/20/2024 3:00 AM EST HEPATITIS B SURFACE ANTIBODY QUANT Routine 03/20/2024 3:00 AM EST CBC AND DIFFERENTIAL Routine 03/20/2024 3:00 AM EST KT/V NATURAL LOG, URR (HC) Routine 03/20/2024 3:00 AM EST COLLECTION DATE (HC) Routine 03/20/2024 3:00 AM EST HEMOGLOBIN Routine 03/01/2024 3:00 AM EST HEMOGLOBIN AND HEMATOCRIT, BLOOD Routine 02/28/2024 3:00 AM EST COLLECTION DATE (HC) Routine 02/28/2024 3:00 AM EST ALUMINUM LEVEL Routine 02/21/2024 3:00 AM EST HEPATITIS B SURFACE ANTIBODY QUANT Routine 02/21/2024 3:00 AM EST HEMOGLOBIN AND HEMATOCRIT, BLOOD Routine 02/21/2024 3:00 AM EST COLLECTION DATE (HC) Routine 02/21/2024 3:00 AM EST HEPATITIS B SURFACE ANTIGEN W/REFL CONFIRM Routine 02/14/2024 3:00 AM EST TRANSFERRIN SATURATION Routine 3:00 AM EST PROTEIN, TOTAL, SERUM Routine 02/14/2024 3:00 AM EST ELECTROLYTE PANEL Routine 02/14/2024 3:0 0 AM EST MAGNESIUM Routine 02/14/2024 3:00 AM EST LIH (HC) Routine 02/14/2024 3:00 AM EST GLUCOSE, RANDOM Routine 02/14/2024 3:00 AM EST CREATININE, SERUM Routine 02/14/2024 3:0 0 AM EST LACTATE DEHYDROGENASE Routine 02/14/2024 3:00 AM EST BILIRUBIN, TOTAL Routine 02/14/2024 3:00 AM EST AST Routine 02/14/2024 3:00 AM EST ALKALINE PHOSPHATASE Routine 02/14/2024 3:00 AM EST CALCIUM PHOSPHORUS PRODUCT, ADJUSTED (HC) Routine 02/14/2024 3:00 AM EST ALT Routine 02/14/2024 3:00 AM EST FERRITIN Routine 02/14/2024 3:00 AM EST KT/V NATURAL LOG, URR () Routine 02/14/2024 3:00 AM EST COLLECTION DATE () Routine 02/14/2024 3:00 AM EST CBC AND DIFFERENTIAL Routine 02/14/2024 3:00 AM EST HEMOGLOBIN AND HEMATOCRIT, BLOOD Routine 02/02/2024 3:00 AM EST HEMOGLOBIN AND HEMATOCRIT, BLOOD Routine 01/31/2024 3:00 AM EST COLLECTION DATE () Routine 01/31/2024 3:00 AM EST HEPATITIS C ABS W/REFLEX RNA DETECTR Routine 01/24/2024 3:00 AM EST HEPATITIS B CORE AB TOTAL Routine 01/24/2024 3:00 AM EST CONFIRMATION TEST HCV Routine 01/24/2024 3:00 AM EST FERRITIN Routine 01/24/2024 3:00 AM EST HEPATITIS B SURFACE ANTIGEN W/REFL CONFIRM Routine 01/24/2024 3:00 AM EST TRANSFERRIN SATURATION Routine 3:00 AM EST URIC ACID Routine 01/24/2024 3:00 AM EST PROTEIN, TOTAL, SERUM Routine 01/24/2024 3:00 AM EST ELECTROLYTE PANEL Routine 01/24/2024 3:0 0 AM EST MAGNESIUM Routine 01/24/2024 3:00 AM EST LIPID PANEL Routine 01/24/2024 3:00 AM EST LIH (HC) Routine 01/24/2024 3:00 AM EST GLUCOSE, RANDOM Routine 01/24/2024 3:00 AM EST LACTATE DEHYDROGENASE Routine 01/24/2024 3:00 AM EST BILIRUBIN, TOTAL Routine 01/24/2024 3:00 AM EST CREATININE, SERUM Routine 01/24/2024 3:0 0 AM EST AST Routine 01/24/2024 3:00 AM EST ALT Routine 01/24/2024 3:00 AM EST CALCIUM PHOSPHORUS PRODUCT, ADJUSTED (HC) Routine 01/24/2024 3:00 AM EST ALKALINE PHOSPHATASE Routine 01/24/2024 3:00 AM EST VITAMIN D 25 HYDROXY Routine 01/24/2024 3:00 AM EST PTH, INTACT Routine 01/24/2024 3:00 AM EST CBC AND DIFFERENTIAL Routine 01/24/2024 3:00 AM EST COLLECTION DATE (HC) Routine 01/24/2024 3:00 AM EST KT/V NATURAL LOG, URR (HC) Routine 01/24/2024 3:00 AM EST from Last 3 Months Results * LIH (03/30/2024 3:00 AM EST) Only the most recent of4 resultswithin the time period is included. Lipemia Normal Normal [facility] Icterus Normal Normal [facility] Hemolysis Normal Normal [facility] 03/30/2024 3:00 AM EST 03/31/2024 1:55 PM EST us Avi Kincaid MD LAB HISTORICA [id number] RESULTS Final Result Performing Organization Address [facility] de Phone Number [facility]PS [facility] [address] [place] [address] * Potassium (03/30/2024 3:00 AM EST) Potassium 3.8 3.4 - 5.0 mEq/L [facility] 03/30/2024 3:00 AM EST 03/31/2024 1:55 PM EST Avi Kincaid MD LAB BLOOD ORDERABLES Final Result Performing Organization Address [facility] de Phone Number [facility] [address] [place] [address] * Confirmation Test HCV (03/20/2024 3:00 AM EST) Only the most recent of2 resultswithin the time period is included. Hep C Ab Confirmation Not needed [facility] 03/20/2024 3:00 AM EST 03/23/2024 2:36 PM EST Avi Kincaid MD LAB BLOOD ORDERABLES Final Result Performing Organization Address [facility] de Phone Number [facility] [address] [place] [address] * Collection Date (03/20/2024 3:00 AM EST) Only the most recent of6 resultswithin the time period is included. Collection Date See Comment [facility] Comment: Patient sample received may exceed specimen stability, based on the collection date electronically provided. ??When reviewing patient results, verify collection information and consider specimen stability before acting on any critical or panic results. 03/20/2024 3:00 AM EST vAi Kincaid MD LAB HISTORICA [id number] RESULTS Final Result Performing Organization Address [facility] Co de Phone Number [facility]PS [facility] [address] [place] [address] * (ABNORMAL) Kt/V Natural Log, URR (03/20/2024 3:00 AM EST) Only the most recent of3 resultswithin the time period is included. Treatment Time 280 min [facility] Pre-Weight, lb 53.6 kg [facility] Post-Weight, lb 53.1 kg [facility] BUN 76(H) 7 - 25 mg/dL [facility] BUN Post Dialysis 14 7 - 25 mg/dL [facility] UREA REDUCTION RATIO (%) 82 >=65 % [facility] Kt/V Natural Log 1.95 >=1.2 [facility] Ultrafiltration Rate 2 <=13 mL/kg/hr [facility] Comment: Recommend achieving Ultrafiltration Rate (UFR) <=10 mL/kg/hr References: Davonte GROVER et al. Kidney Int. 2010; 79(2):250-257 03/20/2024 3:00 AM EST 03/23/2024 2:25 PM EST us Avi Kincaid MD LAB [id number] RESULTS Edited Result - Final [facility] [address] [place] [address] * Calcium Phosphorus Product, Adjusted (03/20/2024 3:00 AM EST) Only the most recent of3 resultswithin the time period is included. Albumin 4.2 3.6 - 5.4 g/dL [facility] Calcium 9.5 8.6 - 10.3 mg/dL [facility] Phosphorus, Serum 4.4 2.5 - 5.0 mg/dL [facility] Ca*PO4 41.8 <55.0 mg2/dL2 [facility] Calcium, Adjusted Total 9.5 8.6 - 10.3 mg/dL [facility] CA*PO4 CORRCTD 41.8 <55.0 mg2/dL2 [facility] 03/20/2024 3:00 AM EST 03/23/2024 2:25 PM EST us Avi Kincaid MD LAB HISTORICA [id number] RESULTS Final Result Performing Organization Address [facility] de Phone Number [facility]PS [facility] [address] [place] [address] * HEPATITIS C ABS W/REFLEX RNA DETECTR (03/20/2024 3:00 AM EST) Only the most recent of2 resultswithin the time period is included. Hep C Virus Ab Non-Reacti ve Non-Reacti ve [facility] 03/20/2024 3:00 AM EST 03/23/2024 2:25 PM EST us Avi Kincaid MD LAB HISTORICA [id number] RESULTS Final Result Performing Organization Address [facility] de Phone Number [facility] [address] [place] [address] * Hepatitis B Surface Ag w/Reflex Confirmation (03/20/2024 3:00 AM EST) Only the most recent of3 resultswithin the time period is included. Hep B Surface Antigen Negative Negative [facility] 03/20/2024 3:00 AM EST 03/23/2024 2:25 PM EST us Avi Kincaid MD LAB BLOOD ORDERABLES Final Result Performing Organization Address [facility] de Phone Number [facility]PS [facility] [address] [place] [address] * (ABNORMAL) TSAT (03/20/2024 3:00 AM EST) Only the most recent of3 resultswithin the time period is included. Iron 148 50 - 170 ug/dL [facility] Transferrin 140(L) 250 - 380 mg/dL [facility] TIBC 196(L) 211 - 406 ug/dL [facility] Iron Saturation (TSat) 76(H) 22 - 52 % [facility] 03/20/2024 3:00 AM EST 03/23/2024 2:25 PM EST us Avi Kincaid MD LAB BLOOD ORDERABLES Final Result Performing Organization Address [facility] Co de Phone Number [facility] [address] [place] [address] * Aluminum level (03/20/2024 3:00 AM EST) Only the most recent of2 resultswithin the time period is included. Pathologist [facility] Aluminum 2 1 - 20 ug/L [facility] 03/20/2024 3:00 AM EST 03/23/2024 2:57 PM EST Avi Kincaid MD LAB BLOOD ORDERABLES Final Result Performing Organization Address [facility] de Phone Number [facility] [address] [place] [address] * Hepatitis B Surface Antibody (03/20/2024 3:00 AM EST) Only the most recent of2 resultswithin the time period is included. [facility] Hep B Surface Antibody >1,000 mIU/mL [facility] Comment: Interpretation: <10: No Immunity >=10: Probable Immunity 03/20/2024 3:00 AM EST 03/23/2024 2:25 PM EST Avi Kincaid MD LAB BLOOD ORDERABLES Final Result Performing Organization Address [facility] de Phone Number [facility] [address] [place] [address] * (ABNORMAL) CBC and Differential (03/20/2024 3:00 AM EST) Only the most recent of3 resultswithin the time period is included. Pathologist [facility] DIFFERENTIAL MANUAL, 2 Not Indicated [facility] White Blood Cells 4.3 4.0 - 10.0 K/uL [facility] RBC 3.89(L) 3.93 - 5.22 M/uL [facility] Hgb 12.2 11.2 - 15.7 g/dL [facility] Hemoglobin x 3 36.6 33.6 - 47.1 g/dL [facility] Hematocrit 38.2 34.1 - 44.9 % [facility] MCV 98.2(H) 79.4 - 94.8 fL [facility] MCH 31.4 25.6 - 32.2 pg [facility] MCHC 31.9(L) 32.2 - 35.5 g/dL [facility] Platelets 312 182 - 369 K/uL [facility] RDW 14.5(H) 11.7 - 14.4 % [facility] Neutrophils Relative 50.2 34.0 - 71.1 % [facility] Lymphocytes Relative 26.3 19.3 - 51.7 % [facility] Monocytes 12.7(H) 4.7 - 12.5 % [facility] Eosinophils Relative 7.0(H) 0.7 - 5.8 % [facility] Basophils Relative 1.9(H) 0.1 - 1.2 % [facility] Immature Granulocytes 1.9(H) 0.0 - 1.0 % [facility] 03/20/2024 3:00 AM EST 03/23/2024 2:36 PM EST Avi Kincaid MD LAB BLOOD ORDERABLES Final Result Performing Organization Address City/[facility] Co de Phone Number [facility] [address] [place] [address] * (ABNORMAL) Uric Acid (03/20/2024 3:00 AM EST) Only the most recent of2 resultswithin the time period is included. Uric Acid 8.2(H) 2.3 - 6.6 mg/dL [facility] 03/20/2024 3:00 AM EST 03/23/2024 2:25 PM EST Avi Kincaid MD LAB BLOOD ORDERABLES Final Result Performing Organization Address City/[facility]/ZIP Co de Phone Number [facility] [address] [place] [address] * ALT (03/20/2024 3:00 AM EST) Only the most recent of3 resultswithin the time period is included. ALT (SGPT) 15 10 - 49 U/L [facility] 03/20/2024 3:00 AM EST 03/23/2024 2:25 PM EST us Avi Kincaid MD LAB BLOOD ORDERABLES Final Result Performing Organization Address [facility] de Phone Number [facility] [address] [place] [address] * AST (03/20/2024 3:00 AM EST) Only the most recent of3 resultswithin the time period is included. AST (SGOT) 20 <34 U/L [facility] 03/20/2024 3:00 AM EST 03/23/2024 2:25 PM EST us Avi Kincaid MD LAB BLOOD ORDERABLES Final Result Performing Organization Address [facility] Phone Number [facility] [address] [place] [address] * Protein, total (03/20/2024 3:00 AM EST) Only the most recent of3 resultswithin the time period is included. Total Protein 6.5 6.4 - 8.9 g/dL [facility] 03/20/2024 3:00 AM EST 03/23/2024 2:25 PM EST us Avi Kincaid MD LAB BLOOD ORDERABLES Final Result Performing Organization Address [facility] de Phone Number [facility] [address] [place] [address] * Alkaline phosphatase (03/20/2024 3:00 AM EST) Only the most recent of3 resultswithin the time period is included. Alkaline Phosphatase 80 46 - 116 U/L [facility] 03/20/2024 3:00 AM EST 03/23/2024 2:25 PM EST us Avi Kincaid MD LAB BLOOD ORDERABLES Final Result Performing Organization Address [facility] de Phone Number [facility] [address] [place] [address] * PTH, Intact (03/20/2024 3:00 AM EST) Only the most recent of2 resultswithin the time period is included. PTH, Intact 188 160 - 721 pg/mL [facility] Comment: Suggested (KDIGO) ESRD maintenance range is two to nine times the upper normal limit (80.1 pg/mL) for the laboratory. 03/20/2024 3:00 AM EST 03/23/2024 2:25 PM EST us Avi Kincaid MD LAB BLOOD ORDERABLES Final Result Performing Organization Address [facility] de Phone Number [facility] [address] [place] [address] * (ABNORMAL) Magnesium (03/20/2024 3:00 AM EST) Only the most recent of3 resultswithin the time period is included. Magnesium 2.8(H) 1.9 - 2.7 mg/dL [facility] 03/20/2024 3:00 AM EST 03/23/2024 2:25 PM EST us Avi Kincaid MD LAB BLOOD ORDERABLES Final Result Performing Organization Address [facility] de Phone Number [facility] [address] [place] [address] * (ABNORMAL) Lactate dehydrogenase (03/20/2024 3:00 AM EST) Only the most recent of3 resultswithin the time period is included. LDH 255(H) 120 - 246 U/L [facility] 03/20/2024 3:00 AM EST 03/23/2024 2:25 PM EST us Avi Kinciad MD LAB BLOOD ORDERABLES Final Result Performing Organization Address [facility] de Phone Number [facility] [address] [place] [address] * (ABNORMAL) Glucose, random (03/20/2024 3:00 AM EST) Only the most recent of3 resultswithin the time period is included. Glucose 72(L) 74 - 109 mg/dL [facility] 03/20/2024 3:00 AM EST 03/23/2024 2:25 PM EST Avi Kincaid MD LAB BLOOD ORDERABLES Final Result Performing Organization Address City/[facility]/ZIP Co de Phone Number [facility] [address] [place] [address] * (ABNORMAL) Ferritin (03/20/2024 3:00 AM EST) Only the most recent of3 resultswithin the time period is included. Ferritin 1,681(H) 10 - 291 ng/mL [facility] 03/20/2024 3:00 AM EST 03/23/2024 2:25 PM EST Avi Kincaid MD LAB BLOOD ORDERABLES Final Result Performing Organization Address [facility] Co de Phone Number [facility] [address] [place] [address] * (ABNORMAL) Creatinine, serum (03/20/2024 3:00 AM EST) Only the most recent of3 resultswithin the time period is included. Creatinine 4.74(H) 0.55 - 1.02 mg/dL [facility] 03/20/2024 3:00 AM EST 03/23/2024 2:25 PM EST Avi Kincaid MD LAB BLOOD ORDERABLES Final Result Performing Organization Address City/[facility] Co de Phone Number [facility] [address] [place] [address] * Bilirubin, total (03/20/2024 3:00 AM EST) Only the most recent of3 resultswithin the time period is included. Total Bilirubin 0.4 0.3 - 1.2 mg/dL [facility] 03/20/2024 3:00 AM EST 03/23/2024 2:25 PM EST Avi Kincaid MD LAB BLOOD ORDERABLES Final Result [facility] [address] [place] [address] * (ABNORMAL) Lipid panel (03/20/2024 3:00 AM EST) Only the most recent of2 resultswithin the time period is included. Cholesterol 208(H) <200 mg/dL [facility] Comment: Optimal: ?<200 Borderline: ? 200-239 Higher Risk: ?>239 Triglycerides 115 <150 mg/dL [facility] Comment: Optimal: ?<150 Borderline High: ??150-199 High: ? 200-499 Very High: ?>499 HDL 78 >59 mg/dL [facility] Comment: Desirable: ?>59 Higher Risk: ?<40 LDL-Calc 107(A) <100 mg/dL [facility] Comment: Optimal: ?<100 Above Optimal: ?100-129 Borderline High: ??130-159 High: ? 160-189 Very High: ?>189 VLDL Cholesterol Yordan 23 <30 mg/dL [facility] Comment: Optimal: ?<30 Borderline High: ??30-39 High: ? 40-99 Very High: ?>99 Chol/HDL Ratio 2.7 <3.3 [facility] Comment: Optimal: ?<3.3 Higher Risk: ?>6.2 03/20/2024 3:00 AM EST 03/23/2024 2:25 PM EST us Avi Kincaid MD LAB BLOOD ORDERABLES Final Result Performing Organization Address [facility] Co de Phone Number [facility] [address] [place] [address] * Electrolyte panel (03/20/2024 3:00 AM EST) Only the most recent of3 resultswithin the time period is included. Sodium 139 136 - 145 mEq/L [facility] Potassium 3.9 3.4 - 5.0 mEq/L [facility] Chloride 103 98 - 107 mEq/L [facility] Bicarbonate (CO2) 25 21 - 31 mEq/L [facility] Anion Gap 11 3 - 14 mEq/L [facility] 03/20/2024 3:00 AM EST 03/23/2024 2:25 PM EST us Avi Kincaid MD LAB BLOOD ORDERABLES Final Result Performing Organization Address [facility] de Phone Number [facility] [address] [place] [address] * Hemoglobin (03/01/2024 3:00 AM EST) Hgb 12.3 11.2 - 15.7 g/dL [facility] Hemoglobin x 3 36.9 33.6 - 47.1 g/dL [facility] 03/01/2024 3:00 AM EST 03/02/2024 12:58 PM EST us Avi Kincaid MD LAB BLOOD ORDERABLES Final Result Performing Organization Address [facility] de Phone Number [facility] [address] [place] [address] * Hemoglobin and hematocrit (02/28/2024 3:00 AM EST) Only the most recent of4 resultswithin the time period is included. Hgb 12.3 11.2 - 15.7 g/dL [facility] Hematocrit 39.2 34.1 - 44.9 % [facility] Hemoglobin x 3 36.9 33.6 - 47.1 g/dL [facility] 02/28/2024 3:00 AM EST 03/02/2024 12:31 PM EST Avi Kincaid MD LAB BLOOD ORDERABLES Final Result Performing Organization Address [facility] de Phone Number [facility] [address] [place] [address] * Hepatitis B Core Antibody, Total (01/24/2024 3:00 AM EST) HBc Total Ab, S Negative Negative [facility] 01/24/2024 3:00 AM EST 01/27/2024 4:36 PM EST Avi Kincaid MD LAB BLOOD ORDERABLES Final Result Performing Organization Address [facility] de Phone Number [facility] [address] [place] [address] * Vitamin D 25 Hydroxy (01/24/2024 3:00 AM EST) Vitamin D, 25-Hydroxy 16 30 - 100 ng/mL [facility] Comment: Status ? Adult ?? Pediatric Deficient: ? <20 ? <15 Insufficient: ??20-29 ?? 15-19 Sufficient: ?30-100 ??20-100 01/24/2024 3:00 AM EST 01/27/2024 4:36 PM EST Avi Kincaid MD LAB BLOOD ORDERABLES Final Result Performing Organization Address [facility] de Phone Number [facility]PS [facility] [address] [place] [address] from Last 3 Months Insurance [facility] [employer] Care Teams Spinning Operator Relationship Specialty Start Date End Date Leticia Mayo PA [address] [place] [phone] PCP - General Physician Bridge Painter 07/10/20
== END 2024-04-01 14:00 | disposition home or self-care (01) ==
LOC: HO.HOSX 13:59
PROVIDERS: Visit Provider Physician Assistant
DX: S72.002D Fracture of unspecified part of neck of left femur, subsequent encounter for closed fracture with routine healing (principal); M25.552 Pain in left hip; Z96.642 Presence of left artificial hip joint
CPT/HCPCS: 73502; 99212

== ENCOUNTER 2024-08-18 08:27 | Outpatient (REF) | payer MEDICARE, OTHER, SELFPAY ==
--- OUTSIDE RECORDS SUMMARY | 2024-08-18 08:37 | XMS_ITS | Encounter Summary ---
Author Organization [facility] Address [address] [place] [address] Phone Care Team Providers Care Fashion Artist Name Role Phone Leticia Mayo Primary Care Provider [phone] Encounter Details Date Type Department Care Team ([facility] st Contact Info) Description 08/04/2020 Orders Only [facility] [address] [place] [phone] Ricco Wall MD Antineutrophil cytoplasmic antibody positive [...] with titer (08/31/2020 2:04 PM EDT) Pathologist [facility] Myeloperoxidase Ab <9.0 [facility] Comment: Reference range: 0.0 to 9.0 Unit: U/mL PR3 Ab 5.1(H) [facility] Comment: Reference range: 0.0 to 3.5 Unit: U/mL Test performed at [address] [address] Testing performed or reported by [facility], a Service of [facility], [address] [place] [id number] Willam Serrano MD, Laborer Carpentry Dock Blood specimen (specimen) Venous blood / Unknown 08/31/2020 2:04 PM EDT 08/31/2020 2:33 PM EDT us Ricco Wall MD LAB BLOOD ORDERABLES Renetta schulte Result [facility] * (ABNORMAL) Renal Function Panel (08/31/2020 2:03 PM EDT) Pathologist [facility] Glucose 324(H) (70-99) MG/DL [facility] BUN 68(H) (8-23) MG/DL [facility] Creatinine 3.5(H) (0.5-1.0) MG/DL [facility] Sodium 139 (133-145) MMOL/L [facility] Potassium 4.6 (3.6-5.2) MMOL/L [facility] Chloride 94(L) (98-107) MMOL/L [facility] Bicarbonate (CO2) 30(H) (22-29) MMOL/L [facility] Anion Gap 15 (4-17) [facility] Albumin 3.9 (3.4-4.8) GM/DL [facility] Calcium 9.0 (8.6-10.5) MG/DL [facility] Phosphorus, Serum 3.2 (2.5-4.5) MG/DL [facility] Est GFR Non 12 ML/MIN/1.7 3 M2 [facility] Comment: Creatinine based estimated glomerular filtration rate (eGFR) is calculated using the Chronic Kidney Disease Epidemiology Collaboration (CKD-EPI). The CKD-EPI creatinine equation has not been validated in children (<18 years), women or in some racial or ethnic subgroups other than Caucasians and Americans. EST GFR 14 ML/MIN/1.7 3 M2 [facility] Comment: Creatinine based estimated glomerular filtration rate (eGFR) is calculated using the Chronic Kidney Disease Epidemiology Collaboration (CKD-EPI). The CKD-EPI creatinine equation has not been validated in children (<18 years), women or in some racial or ethnic subgroups other than Caucasians and Americans. Testing performed or reported by [facility], a Service of [facility], [address] [place] [address] Katrin Ragsdale MD, Laborer Carpentry Dock Blood specimen (specimen) Venous blood / Unknown 08/31/2020 2:03 PM EDT 08/31/2020 2:32 PM EDT us Ricco Wall MD LAB BLOOD ORDERABLES Renetta schulte Result [facility] documented in this encounter Visit Diagnoses Diagnosis 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) Stage 5 chronic kidney disease (HCC) Acute injury of kidney documented in this encounter Care Teams Fashion Artist Relationship Specialty Start Date End Date Leticia Mayo PA [address] [place] [address] PCP - General Physician Graphic Art Sales Representative 07/10/20 documented as of this encounter
[2024-08-18 12:22] LABS: Appearance Urine Turbid; Color Urine Yellow; Glucose Urine UA Negative (Negative); Leukocyte Esterase Urine Large (3+) (Negative); Nitrite Urine Negative (Negative); UMIC TRIGGER UA YES; Urine Blood Trace (Negative); Urine Ketones Trace mg/dL (Negative); Urine Protein 100 (2+) mg/dL (Neg-Trace)
[2024-08-18 12:35] LABS: Bacteria Urine 4+ (None Seen); WBC Urine >50 /HPF (0-5)
== END 2024-08-18 08:28 | disposition home or self-care (01) ==
LOC: HO.LAB 08:27
PROVIDERS: PCP Physician Assistant; Visit Provider Urology
DX: N39.0 Urinary tract infection, site not specified (principal)
CPT/HCPCS: 81001; 87086; 87088

== ENCOUNTER 2024-08-25 11:30 | Outpatient (REF) | payer MEDICARE, OTHER, SELFPAY ==
--- NOTE | ~2024-08-25 | MM_ITS ---
EXAMINATION: MM SCREENING DIGITAL BREAST TOMOSYNTHESIS, BILATERAL CLINICAL INFORMATION: Screening. Asymptomatic. COMPARISON: Mammography: Comparison is made with available priors TECHNIQUE: Digital breast mammography with tomosynthesis is performed in both the craniocaudal and mediolateral oblique views along with computer-aided detection (CAD). FINDINGS: The breasts are heterogeneously dense, which may obscure small masses (ACR BI-RADS breast composition Category c). There are no significant masses, abnormal calcifications, or other abnormalities. MM/MM tomosynthesis screening BI IMPRESSION: No mammographic evidence of malignancy. ASSESSMENT: BI-RADS BI-RADS 1 - Negative RECOMMENDATION: Routine annual mammography screening. 1 year F/U This examination should not preclude the clinical evaluation of a suspicious palpable abnormality. This patient's information was entered into a reminder system with a target due date for their next mammogram. Electronically signed by: Jackelyn Hewitt DO 08/30/2024 06:13 PM EDT
--- OUTSIDE RECORDS SUMMARY | 2024-08-25 13:28 | XMS_ITS | Encounter Summary ---
Author Organization [facility] Address [address] [place] [address] Phone Care Team Providers Care Cut In Worker Name Role Phone Leticia Mayo Primary Care Provider [phone] Encounter Details Date Type Department Care Team ([facility] st Contact Info) Description 08/04/2020 Orders Only [facility] [address] [place] [phone] Ricco Wall MD Antineutrophil cytoplasmic antibody positive [...] with titer (08/31/2020 2:04 PM EDT) Pathologist [facility] Myeloperoxidase Ab <9.0 [facility] Comment: Reference range: 0.0 to 9.0 Unit: U/mL PR3 Ab 5.1(H) [facility] Comment: Reference range: 0.0 to 3.5 Unit: U/mL Test performed at [address] [address] Testing performed or reported by [facility], a Service of [facility], [address] [place] [address] Willam Serrano MD, Metal Engineering Process Worker Blood specimen (specimen) Venous blood / Unknown 08/31/2020 2:04 PM EDT 08/31/2020 2:33 PM EDT us Ricco Wall MD LAB BLOOD ORDERABLES Renetta schulte Result [facility] * (ABNORMAL) Renal Function Panel (08/31/2020 2:03 PM EDT) Pathologist [facility] Glucose 324(H) (70-99) MG/DL [facility] BUN 68(H) (8-23) MG/DL [facility] Creatinine 3.5(H) (0.5-1.0) MG/DL [facility] Sodium 139 (133-145) MMOL/L [facility] Potassium 4.6 (3.6-5.2) MMOL/L [facility] Chloride 94(L) (98-107) MMOL/L [facility] Bicarbonate (CO2) 30(H) (22-29) MMOL/L [facility] Anion Gap 15 (4-17) [facility] Albumin 3.9 (3.4-4.8) GM/DL [facility] Calcium 9.0 (8.6-10.5) MG/DL [facility] Phosphorus, Serum 3.2 (2.5-4.5) MG/DL [facility] Est GFR Non 12 ML/MIN/1.7 3 M2 [facility] Comment: Creatinine based estimated glomerular filtration rate (eGFR) is calculated using the Chronic Kidney Disease Epidemiology Collaboration (CKD-EPI). The CKD-EPI creatinine equation has not been validated in children (<18 years), women or in some racial or ethnic subgroups other than Caucasians and Americans. EST GFR 14 ML/MIN/1.7 3 M2 [facility] Comment: Creatinine based estimated glomerular filtration rate (eGFR) is calculated using the Chronic Kidney Disease Epidemiology Collaboration (CKD-EPI). The CKD-EPI creatinine equation has not been validated in children (<18 years), women or in some racial or ethnic subgroups other than Caucasians and Americans. Testing performed or reported by [facility], a Service of [facility], [address] [place] [address] Katrin Ragsdale MD, Metal Engineering Process Worker Blood specimen (specimen) Venous blood / Unknown 08/31/2020 2:03 PM EDT 08/31/2020 2:32 PM EDT us Ricco Wall MD LAB BLOOD ORDERABLES Renetta schulte Result [facility] documented in this encounter Visit Diagnoses Diagnosis 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) Stage 5 chronic kidney disease (HCC) Acute injury of kidney documented in this encounter Care Teams Cut In Worker Relationship Specialty Start Date End Date Leticia Mayo PA [address] [place] [phone] PCP - General Physician Development And Planning Engineer 07/10/20 documented as of this encounter
== END 2024-08-25 11:31 | disposition home or self-care (01) ==
LOC: HO.MAMMO 11:30
PROVIDERS: PCP Physician Assistant; Visit Provider Physician Assistant
DX: Z12.31 Encounter for screening mammogram for malignant neoplasm of breast (principal)
CPT/HCPCS: 77063; 77067

== ENCOUNTER → 2024-08-25 12:00 | Outpatient (BNV) | payer MEDICARE, OTHER, SELFPAY | PROVIDERS: PCP Physician Assistant; Visit Provider Internal Medicine | DX: Z12.31 Encounter for screening mammogram for malignant neoplasm of breast (principal) | CPT/HCPCS: 77063; 77067 ==

== ENCOUNTER 2024-12-08 14:06 | Outpatient (AMB) | payer MEDICARE, OTHER, SELFPAY ==
--- NOTE | 2024-12-08 14:15 | MHC.OFFVIS ---
Intake Visit Reasons: 1y/US Intake Note: Patient presents today for a 1yr follow up/US 12/04 Renal US Urology Meds: Estradiol Allergies to Antibiotic: No Known Allergies Blood Thinner: None PVR:84ml Supervisor Drying And Softening Required: No Accompanied by: Self / Same As Patient Allergies No Known Allergies Allergy (Verified 12/08/24 14:15) Medication List - Last Reconciled 12/08/24 by Robel Wagoner MD acetaminophen 650 mg (2 x 325 mg) PO Q6H PRN B complex-vitamin C-folic acid 0.8 mg (Nephro-Jese) 1 tab PO DAILY carvedilol 1 tab PO BID@0800,1200 docusate sodium 100 mg PO BEDTIME ferrous sulfate 650 mg PO DAILY@1200 lactobacillus combination no.9 (Adult 50 Plus Probiotic) 4,000 mmu cells PO DAILY prednisone 5 mg PO DAILY sevelamer carbonate 800 mg PO TID torsemide 20 mg PO DAILY HPI Comments Details: 12/08/24--Deion is a 74-year-old female 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 Previous workup included office cystoscopy March 2023. The present patient presents follow-up. History of Present Illness The patient is a 74-year-old female presenting with follow-up for end stage renal disease and recurrent urinary tract infections. The end stage renal disease is secondary to vasculitis, and the patient is currently undergoing dialysis two days a week for three hours each session. A year ago, the patient was considered for a kidney transplant with her son as a potential donor, but she was removed from the list due to being underweight . The patient was offered a program to gain weight, but no further communication has been received since March of the previous year. The patient experiences recurrent urinary tract infections and is immunosuppressed. She had at least one significant urinary tract infection in the past year. Currently, she is not on any antibiotics and is advised to monitor symptoms and report any increase in frequency or severity of infections. Will monitor on Prn basis. Results - Bladder scan: Post-void residual volume of 84 mL Plan Recurrent Urinary Tract Infections - Monitor for symptoms and initiate antibiotics if infections become more frequent or severe. - we will follow PRN for now 11/27/23--Akanksha is a 73 year old female ESRD, secondary to vasculitis, immunosuppressed, followed for recurrent UTIs. Prior office cystoscopy consistent with cystitis. The patient was last seen in May and states that she had 1 urinary tract infection in July. She continues to urinate during the day she has dialysis twice a week. Will check renal ultrasound. Follow-up 1 year. 05/26/2023-- Akanksha is a 72-year-old female who presents today to the office for follow up evaluation of recurrent urinary tract infections and repeat office cystoscopy. Cystoscopy was done on 03/26/2023 which noted multifocal erythematous changes consistent with cystitis. The patient was placed on a 30 day suppressive course of antibiotics, Keflex 250 mg daily. She states she is doing wall she gets hemodialysis twice a day week, denies dysuria or incontinence. 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 I have reviewed urine cytology results atypical cells noted a nearly inflammatory in nature. Office cystoscopy: Findings bladder mucosa no suspicious bladder lesions, cystitis changes resolved. Plan follow-up in 6 months. Patient will call for any UTI symptoms and we will get a urine culture checked at that time. 03/26/23-- here for cysto Cystoscopy findings: mutifocal erythematous changes suggestive of cystitis, will place on antibiotic therapy and repeat cystoscopy in 2 months. Urine for cytology, Keflex 250 mg daily, estrace cream. 02/10/2023? She is present today for an evaluation of recurrent urinary tract infections. 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 Patient states that she was started on dialysis 3 times a week and currently on dialysis 2 times a week for 3 ? hours. Patient states that she has had urinary tract infection few months prior to dialysis. Patient is currently on Prednisone and a diuretic. She states that she is getting up 4-5 times at night to urinate and urinates less often during the day time. She has a history of partial hysterectomy in 2004 for fibroids at which she states they did a bladder suspension. 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 Hyperlipidemia Hypertension Surgical History H/O hernia repair History of partial hysterectomy Social History Household Members: Children Household Members Other:: SON Housing: House Are you a primary hearing care professional to a significant other at home: No Do you presently have visiting nurse or other home services: No Alcohol intake: never Patient Tobacco Use Status: Former Tobacco user Tobacco use type: Cigarette Years Smoked: 5 Advance Directives Date on File: 06/13/20 service: No Current occupational status: retired Review of Systems Const All systems reviewed & are unremarkable except as noted in HPI and below Reports no additional complaints Eyes Reports no additional complaints ENT Reports no additional complaints Card Reports no additional complaints Resp Reports no additional complaints GI Reports no additional complaints Reports as per HPI Musc Reports no additional complaints Skin/Breast Reports system reviewed and no additional complaints, except as documented Neuro Reports no additional complaints Psych Reports no additional complaints Endo Reports no additional complaints [place]/Lymph Reports no additional complaints Aller/Immun Reports no additional complaints Assessment & Plan Assessment & Plan (1) ESRD (end stage renal disease): Code(s): N18.6 - End stage renal disease Category: Medical (2) History of recurrent UTIs: Code(s): Z87.440 - Personal history of urinary (tract) infections Category: Medical (3) Chronic cystitis: Code(s): N30.20 - Other chronic cystitis without hematuria Category: Medical (4) Immunosuppression due to drug therapy: Code(s): D84.821 - Immunodeficiency due to drugs; Z79.899 - Other terminal system operator (current) drug therapy Category: Medical Plan Plan Recurrent Urinary Tract Infections - Monitor for symptoms and initiate antibiotics if infections become more frequent or severe. - we will follow PRN for now Medications: Discontinued levofloxacin Discontinued Reason: Patient Completed Course 500 mg PO DAILY 5 days 5 tabs 0RF Patient Instructions: The patient had an opportunity to ask questions regarding treatment plan. The patient expressed understanding and agreement with the above treatment plan. The patient is aware they should contact our office by phone for worsening of their current condition or the appearance of new symptoms. Compliance is encouraged with any medications and followup testing that is ordered. It is a privilege to be allowed the opportunity to participate in the urologic care of your patient. If you have any questions or concerns regarding treatment for the above conditions please do not hesitate to contact me. The office telephone contact is [phone]. This note is constructed in part using voice recognition software. While every effort has been made to ensure accuracy asbestos worker errors may have been included. Yours sincerely, Robel Wagoner MD Scribe Plan - Not visible on output: Patient was informed and verbally consented to the use of an ambient scribe for clinic note documentation during this visit. Coding Level of Care Code Est Pt Level 3 (15341) Complex EM visit Add On G2211 Diagnoses ESRD (end stage renal disease) N18.6 History of recurrent UTIs Z87.440 Chronic cystitis N30.20 Immunosuppression due to drug therapy D84.821; Z79.899
--- OUTSIDE RECORDS SUMMARY | 2024-12-08 15:18 | XMS_ITS | Encounter Summary ---
Author Organization [facility] Address [address] [place] [address] Phone Care Team Providers Care Big Data Solutions Architect Name Role Phone Christophe Mayo MD Primary Care Provider [phone] Encounter Details Date Type Department Care Team (Late st Contact Info) Description 07/19/2022 Procedure Pass OR Admitting Dept - Virtual Department [address] [place] [address] Social History Tobacco Use Types Packs/Day Years Used Date Smoking Tobacco: Former Cigarettes Smokeless Tobacco: Never Comments:Age 15-20 Alcohol Use Standard Drinks/Week Comments Never 0 (1 standard drink = 0.6 oz pur e alcohol) Education Answer Date Recorded Are you interested in more education? Not on ramon e 07/05/2022 Are you concerned about learning? Not on file 07/05/2022 No 07/05/2022 No 07/05/2022 Comments No Sex and Gender Information Value Date Recorded Sex Assigned at Not on file Legal Sex Female 10:02 PM EDT Gender Identity Not on file Sexual Orientation Not on file documented as of this encounter Plan of Treatment Not on file documented as of this encounter Visit Diagnoses Not on filedocumented in this encounter Care Teams Big Data Solutions Architect Relationship Specialty Start Date End Date Christophe Mayo MD PCP - General Family Medicine 11/17/17 documented as of this encounter Additional Source Comments The information contained in this document represents components of the legal health record. It is not the complete legal health record.[facility]
--- OUTSIDE RECORDS SUMMARY | 2024-12-08 15:18 | XMS_ITS | Clinical Summary ---
Author Organization [facility] Address [address] [place] [address] Phone Care Team Providers Care Asset Accountant Name Role Phone Leticia Mayo Primary Care Provider [phone] Allergies No known active allergies Medications Nephro-Jese 0.8 mg tablet Take 1 tablet by mouth 1 (one) time each day. 10/29/19 24 Active lactobacillus combination no.9 (Adult 50 Plus Probiotic) 4 billion cell capsule Take 4,000 mm by mouth 1 (one) time each day. Active apixaban (ELIQUIS) 2.5 mg tabletIndicatio ns:hip surgery deep vein thrombosis prevention Take 1 tablet (2.5 mg total) by mouth 2 (two) times a day for 15 days. Last dose: 02/06/24 as per Orthopedics recommendations 30 each 01/22/20 24 Active carvediloL (COREG) 6.25 mg tablet Take 1 tablet (6.25 mg total) by mouth 2 (two) times daily after breakfast and lunch. 60 each 01/22/20 24 Active torsemide (DEMADEX) 20 mg tablet Take 1 tablet (20 mg total) by mouth 1 (one) time each day. 30 each 01/22/20 Active Active Problems Problem Noted Date Diagnosed Date Closed left hip fracture (CMS/HCC V24, CMS/[facility] V 28) 01/12/2024 Overview (01/13/2024): Status post mechanical fall 01/08/24. X-ray 01/08/24 revealed acute comminuted displaced fracture of the left femoral neck. Underwent a left hip ORIF by Dr. Nichols on 01/09/24. ESRD (end stage renal diseas e) on dialysis ([facility] V24, [facility] V28) 01/12/2024 Granulomatosis with polyangiitis ([facility] V24, [facility] V28) 01/12/2024 Hypertension 01/12/2024 HLD (hyperlipidemia) Surgical History Surgery Date Site/Laterality Comments ORIF HIP FRACTURE Left HERNIA REPAIR PARTIAL HYSTERECTOMY N/A Medical History Medical History Date Comments HTN (hypertension) ESRD (end stage renal diseas e) on dialysis ([facility] V24, [facility] V28) Closed left hip fracture ([facility] V24, [facility] V 28) 01/08/2024 Granulomatosis with polyangiitis ([facility] V24, [facility] V28) Lung nodule HLD (hyperlipidemia) Vasculitis, ANCA positive ([facility] V24, [facility] V28) Social History Tobacco Use Types Packs/Day Years [...] Safety Answer Date Record ed Physical Abuse Unrecognized value 01/12/2024 Verbal Abuse Unrecognized value 01/12/2024 Comments Unknown Sex and Gender Information Value Date Recorded Sex Assigned at Female 01/12/2024 1:52 PM EST Legal Sex Female 2:14 PM EST Gender Identity Female 01/12/2024 1:52 PM EST Sexual Orientation Not on file Obstetrics History Last Filed Vital Signs Vital Sign Reading Time Taken Comments Blood Pressure 125/56 01/22/2024 7:30 AM EST Pulse 92 01/22/2024 7:30 AM EST Temperature 36.3 C (97.3 F) 01/22/2024 7:30 AM EST Respiratory Rate 16 01/22/2024 7:30 AM EST Oxygen Saturation 99% 01/22/2024 7:30 AM EST Inhaled Oxygen Concentration - - Weight 53.9 kg (118 lb 12.8 oz) 01/17/2024 8:00 AM EST Height 163 cm (5' 4.17 ) 01/12/2024 6:18 PM EST Body Mass Index 20.28 01/12/2024 6:18 PM EST Plan of Treatment Health Maintenance Due Date Last Done Comments Colorectal Cancer Screening: Colonoscopy 1950 Cholesterol Screening (Lipid Panel) 01/11/2024 Hepatitis C Screening 01/11/2024 Medicare Annual Wellness Visit 01/11/2024 Osteoporosis Screening (Bone Density Screening) 01/11/2024 Depression Screening 03/10/2024 01/22/2024 COVID-19 Vaccine (8 - Pfizer risk 2023- season) 2024 01/01/2024, 03/01/2023, 01/25/2022, Additional history exists Influenza Vaccine (#1) 2024 , 11/29/2022, 01/03/2022, Additional history exists Hypertension/CHF/CAD Annual BMP Blood Test 01/19/2025 01/20/2024, 01/17/2024, 01/13/2024, Additional history exists Falls Risk Assessment 01/21/2025 01/22/2024 Social Influencers of Health Screening 01/21/2025 01/22/2024 DTaP,Tdap,and Td Vaccines (3 - Td or Tdap) 12/02/2033 12/03/2023, 12/08/2009 Zoster Vaccines Completed 2021, 09/25/2021 Pneumococcal Vaccine: 50+ Years Completed 05/02/2022, 04/27/2021 RSV Immunization Adult Patients Completed 01/17/2023 Hepatitis B Vaccines Completed 04/26/2023, 12/19/2022, 11/21/2022, Additional history exists HIB Vaccines Aged Out [...] patient's age to complete this topic Meningococcal B Vaccine Aged Out No l onger eligible based on patient's age to complete this topic RSV Immunization Patients Under 20 months Aged Out No longer eligible based on patient's age to complete this topic Varicella Vaccines Aged Out No longer eligible based on patient's age to complete this topic Procedures Procedure Name Priority Date/Time Associated Diagnosis Comments BASIC METABOLIC PANEL STAT 01/20/2024 8:31 AM EST from Last 3 Months or Most Recently Relevant to Health Maintenance Results * (ABNORMAL) Basic metabolic panel (01/20/2024 8:31 AM EST) Sodium 139 133 - 145 mmol/L LAB CHEMISTRY METHOD 01/20/2024 9:11 AM [facility] Potassium 3.4(L) 3.5 - 5.5 mmol/L LAB CHEMISTRY METHOD 01/20/2024 9:11 AM [facility] Chloride 100 96 - 110 mmol/L LAB CHEMISTRY METHOD 01/20/2024 9:11 AM [facility] CO2 31 21 - 32 mmol/L LAB CHEMISTRY METHOD 01/20/2024 9:11 AM [facility] Anion Gap 8 3 - 11 LAB CHEMISTRY METHOD 01/20/2024 9:11 AM [facility] Glucose 131(H) 70 - 100 mg/dL LAB CHEMISTRY METHOD 01/20/2024 9:11 AM [facility] BUN 92(H) 5 - 25 mg/dL LAB CHEMISTRY METHOD 01/20/2024 9:11 AM [facility] Creatinine 5.25(H) 0.50 - 1.10 mg/dL LAB CHEMISTRY METHOD 01/20/2024 9:11 AM EST [facility] eGFR 8(L) >=60 mL/min/1. 73m2 LAB CHEMISTRY METHOD 01/20/2024 9:11 AM EST [facility] Comment:Calculation based on the Chronic Kidney Disease Epidemiology Collaboration (CKD-EPI) equation refit without adjustment for race. BUN/Creatinine Ratio 17.5 LAB CHEMISTRY METHOD 01/20/2024 9:11 AM EST [facility] Calcium 9.5 8.5 - 10.5 mg/dL LAB CHEMISTRY METHOD 01/20/2024 9:11 AM [facility] Blood Venous blood specimen / Unknown Venipuncture / Unknown 01/20/2024 8:31 AM EST 01/20/2024 8:38 AM EST us Shireen Bansal DO LAB BLOOD ORDERABLES Renetta l Result [facility] [address] [place] [address], from Last 3 Months or Most Recently Relevant to Health Maintenance Insurance MEDICARE [facility] Advance Directives Documents on File Type Date Recorded Patient Manager Rehab Expl anation Advance Directives and Living Will [...] currently active code status orders. Care Teams Asset Accountant Relationship Specialty Start Date End Date Leticia Mayo PA [address] [place] [address] [place] PCP - General Physician Karate Teacher 01/12/24
--- OUTSIDE RECORDS SUMMARY | 2024-12-08 15:19 | XMS_ITS | Encounter Summary ---
Author Organization [facility] Address [address] [place] [address] Phone Care Team Providers Care Support Technician Name Role Phone Christophe Mayo MD Primary Care Provider [phone] Encounter Details Date Type Department Care Team (Late st Contact Info) Description 06/10/2018 Procedure Pass [facility] Endoscopy Admitting Dept Virtual Department [address] [place] [address] Social History Tobacco Use Types Packs/Day Years Used Date Smoking Tobacco: Former Smokeless Tobacco: Never Alcohol Use Standard Drinks/Week Comments Not Currently 0 (1 standard drink = 0.6 oz [...] Diagnoses Not on filedocumented in this encounter Additional Health Concerns Infection Onset Date Last Indicated Resolved Time CoV-Risk 05/27/2020 05/28/2020 06/06/2020 1:23 AM EDT documented as of this encounter Care Teams Support Technician Relationship Specialty Start Date End Date Christophe Mayo MD PCP - General Family Medicine 11/17/17 documented as of this encounter Additional Source Comments The information contained in this document represents components of the legal health record. It is not the complete legal health record.[facility]
--- OUTSIDE RECORDS SUMMARY | 2024-12-08 15:19 | XMS_ITS | Encounter Summary ---
Author Organization [facility] Address [address] [place] [address] Phone Care Team Providers Care Metal Sorter Name Role Phone Christophe Mayo MD Primary Care Provider [phone] Encounter Details Date Type Department Care Team (Latest Contact Info) Description 11/17/2017 Transcribe Orders [facility] [address] [place] [address] Dorina Perry PA-C [address], [address] [place] [address] [email or web address] Rectal bleeding (Primary Dx); Rectal pain Social History Tobacco Use Types Packs/Day Years Used Date Smoking Tobacco: Never Assessed Comments Unknown Sex and Gender Information Value Date Recorded Sex Assigned at Not on file Legal Sex Female 10:02 PM EDT Gender Identity Not on file Sexual Orientation Not on file documented as of this encounter Plan of Treatment Not on file documented as of this encounter Results * (ABNORMAL) CBC (11/17/2017 10:41 AM EDT) WBC 5.59 3.40 - 11.20 K/uL [facility] RBC 4.85(H) 3.80 - 4.80 M/uL [facility] HGB 14.5 12.0 - 15.0 g/dL [facility] HCT 43.9 36.0 - 46.0 % [facility] PLT 229 130 - 400 K/uL [facility] MCV 90.5 79.0 - 98.0 fL [facility] MCH 29.9 27.0 - 34.8 pg [facility] MCHC 33.0 31.5 - 36.0 g/dL [facility] RDW 12.7 10.8 - 14.6 % [facility] MPV 11.3 9.4 - 12.4 fl [facility] NRBC 0.00 /100 WBCs [facility] ABSOLUTE NRBC 0.00 K/uL [facility] Blood 11/17/2017 10:4 1 AM EDT 11/17/2017 10:45 AM EDT Dorina Perry PA-C LAB BLOOD ORDERABLES Final Resu lt [address] [address] documented in this encounter Visit Diagnoses Diagnosis Rectal bleeding- Primary Hemorrhage of rectum and anus Rectal pain Anal or rectal pain documented in this encounter Additional Health Concerns Infection Onset Date Last Indicated Resolved Time CoV-Risk 05/27/2020 05/28/2020 06/06/2020 1:23 AM EDT documented as of this encounter Care Teams Metal Sorter Relationship Specialty Start Date End Date Christophe Mayo MD [email or web address] PCP - General Family Medicine 11/17/17 documented as of this encounter Additional Source Comments The information contained in this document represents components of the legal health record. It is not the complete legal health record.[facility]
--- OUTSIDE RECORDS SUMMARY | 2024-12-08 15:19 | XMS_ITS | Encounter Summary ---
Author Organization [facility] Address [address] [place] [address] Phone Care Team Providers Care Anchor Tack Puller Name Role Phone Christophe Mayo MD Primary Care Provider [phone] Encounter Details Date Type Department Care Team (Late st Contact Info) Description 02/03/2018 Procedure Pass [facility] Endoscopy Admitting Dept Virtual Department [address] [place] [address] Social History Tobacco Use Types Packs/Day Years [...] documented as of this encounter Care Teams Anchor Tack Puller Relationship Specialty Start Date End Date Christophe Mayo MD PCP - General Family Medicine 11/17/17 documented as of this encounter Additional Source Comments The information contained in this document represents components of the legal health record. It is not the complete legal health record.[facility]
--- OUTSIDE RECORDS SUMMARY | 2024-12-08 15:19 | XMS_ITS | Clinical Summary ---
Author Organization [facility] Address [address] [place] [address] Phone Care Team Providers Care Oil Painter Name Role Phone Christophe Ann MD Primary Care Provider [phone] Allergies No known active allergies Medications antiox. [id number] [id number] [id number] mg Cap as directed Active torsemide (DEMADEX) 20 MG tablet Take 20 mg by mouth daily. 2 Active sevelamer carbonate (RENVELA) 800 mg tablet Take 800 mg by mouth 2 (two) times a day. 2 Active ferrous sulfate 325 mg (65 mg eastern shoshone iron) tablet Take 325 mg by mouth 2 (two) times a day. Active carvedilol (COREG) 6.25 MG tablet TAKE 1 TABLET BY MOUTH IN THE MORNING AND 1 TABLET IN THE EVENING. TAKE WITH MEALS 2 Active acetaminophen (TYLENOL) 325 mg tablet Take 1-2 tablets (325-650 mg total) by mouth every 6 (six) hours as needed (mild - moderate pain). 3 Active docusate sodium (COLACE) 100 MG capsule Take 1 capsule (100 mg total) by mouth 2 (two) times a day. When taking pain medications 3 Active B COMPLEX-VITAMIN C-FOLIC ACID 0.8 mg Tab TAKE 1 TABLET BY MOUTH DAILY NOT COVERED BY INSURANCE 3 Active predniSONE (DELTASONE) 5 MG tablet 3 Active Encounters Date Type Department Care Team Description 12/06/2024 Ancillary Orders Virtual Department [address] [place] [address] Leticia Ann PA Osteopenia, unspecified location (Primary Dx); Other specified disorders of bone density and structure, unspecified site; Asymptomatic menopausal state 12/06/2024 Transcribe Orders Virtual Department [address] [place] [address] Leticia Ann PA Osteopenia, unspecified location (Primary Dx) from Last 3 Months Social History Tobacco Use Types Packs/Day Years Used Date Smoking Tobacco: Former Cigarettes Smokeless Tobacco: Never Tobacco Cessation:Counseling Given: Not Answered Comments:Age 15-20 Alcohol Use Standard Drinks/Week Comments Never 0 (1 standard drink = 0.6 oz pur e alcohol) Education Answer Date Recorded Are you interested in more education? Not on ramon e 07/05/2022 Are you concerned about learning? Not on file 07/05/2022 No 07/05/2022 No 07/05/2022 Digital Access Answer Date Recorded No 07/31/2022 No 07/31/2022 Reliable internet access at home? Not on file 07/31/2022 Device with a working camera? Not on file Comments No Sex and Gender Information Value Date Recorded Sex Assigned at Not on file Legal Sex Female 10:02 PM EDT Gender Identity Not on file Sexual Orientation Not on file Last Filed Vital Signs Vital Sign Reading Time Taken Comments Blood Pressure 114/68 07/31/2022 1:34 PM EDT Pulse 96 07/31/2022 1:34 PM EDT Temperature 36.7 C (98 F) 07/31/2022 1:34 PM EDT Respiratory Rate 18 07/19/2022 11:30 AM EDT Oxygen Saturation 97% 07/31/2022 1:34 PM EDT Inhaled Oxygen Concentration - - Weight 53.5 kg (118 lb) 07/11/2022 9:42 AM EDT Height 167.6 cm (5' 6 ) 07/11/2022 9:42 AM EDT Body Mass Index 19.05 07/11/2022 9:42 AM EDT Plan of Treatment Health Maintenance Due Date Last Done Comments LIPID PANEL 1950 DEPRESSION SCREENING 1961 SMOKING Hx and SMOKELESS TOBACCO SCREENING 1962 HEPATITIS C SCREENING 11/24/1967 COLOGUARD 1994 FIT TEST 1994 FOBT 1994 SIGMOIDOSCOPY 1994 VIRTUAL COLONOSCOPY 1994 OSTEOPOROSIS SCREENING INITIAL (ONE-TIME) 2014 Adult Td,Tdap Booster 12/09/2019 12/08/2009 PNEUMOCOCCAL VACCINES (50+ years) (2 of 2 - PCV) 04/27/2022 04/27/2021 INFLUENZA VACCINE (#1) 2024 2, 01/11/2021, 12/21/2019, Additional history exists COVID-19 VACCINE ( season) 2024 01/25/2022, 06/26/2021, 02/26/2021, Additional history exists RSV VACCINE (1 - 1-dose 75+ series) 2024 COLONOSCOPY 06/10/2028 06/10/2018 COLORECTAL CANCER SCREENING 06/10/2028 ZOSTER VACCINES Completed 2021, 09/07, 12/25/2015 HEPATITIS A VACCINES Aged Out No long er eligible based on patient's age to complete this topic HIB VACCINES Aged Out No longer eligi ble based on patient's age to complete this topic MENINGOCOCCAL VACCINES (ACWY) Aged Out No longer eligible based on patient's age to complete this topic MENINGOCOCCAL VACCINES (B) Aged Out N o longer eligible based on patient's age to complete this topic Medical Devices Implanted Type Area Floral Associate Device Identifier Shelf Expiration Date Model / Serial / Lot Mesh Synthetic 6.0 Digna Abdominal Non Absorbable Square Polypropylene Bx/6ea - [id number] Implanted:Qty: 1 on 07/19/2022 by Cora Webb MD at [facility] STANDARD Left: Groin JNJ [employer] / DIVISION OF J 12/07/2022 [facility] / / [id number] Shunt Shunt Left: Arm Procedures Procedure Name Priority Date/Time Associated Diagnosis Comments ENDOSCOPY, COLON 06/10/2018 11:3 0 AM EDT from Last 3 Months or Most Recently Relevant to Health Maintenance Results * ENDOSCOPY, COLON (06/10/2018 11:30 AM EDT) Narrative Transcriptions Anni Jane MD - 06/10/2018 11:30 AM EDT Patient Name: Akanksha Tran Attending MD:: ANNI JANE MD Procedure Date: 06/10/2018 11:30 AM Date of : 1950 Age: 67 Admit Type: Outpatient Gender: Female Room: [place] [address] Referring MD: CRHISTOPHE ANN MD Exam Type: Colonoscopy Indications: High risk colon cancer surveillance: Personal historyof colonic polyps, Last colonoscopy: 2008 Medications: Propofol per Anesthesia Procedure: Informed consent was obtained from the patient after discussion of the indications, limitations,alternatives, benefits, and risks of the procedure. Risksspecifically discussed include but are not limited to medication reactions, missed lesions, bleeding, perforation, orthe need for emergent surgery. Throughout the procedure, the patient's blood pressure, pulse, end-tidal CO2, and oxygen saturations were monitored continuously. The Olympus adult variable colonoscope [id number] #[id number] was introduced through the anus and advanced to the cecum, identified by appendiceal orifice and ileocecal valve.The ileocecal valve, appendiceal orifice, and rectum were photographed. The colonoscopy was somewhat difficultdue to significant looping. The patient tolerated the procedure well. The quality of the bowel preparationwas good. The bowel preparation used was GoLYTELY. Complications: No immediate complications. Estimated blood loss:None. Findings: The perianal and digital rectal examinations werenormal. Pertinent negatives include no palpable rectallesions. Internal hemorrhoids were found during retroflexion.The hemorrhoids were small. Multiple medium-mouthed diverticula were found in the sigmoid colon. There was evidence of diverticularspasm. The exam was otherwise without abnormality. Retroflexion in the right colon was intentionally not performed, with a careful second viewing of theascending colon, instead. Impression: - Internal hemorrhoids. - Moderate diverticulosis in the sigmoid colon. Therewas evidence of diverticular spasm. - The examination was otherwise normal. - No specimens collected. Recommendation: - High fiber diet. - Repeat colonoscopy in 5 years for surveillance. ANNI JANE MD 06/10/2018 12:02:39 PM This report has been signed electronically. Number of Addenda: 0 Note Initiated On: 06/10/2018 11:30 AM Procedure Code(s): --- Professional --- 01353, Colonoscopy, flexible; diagnostic, including collection of specimen(s) by brushing or washing, when performed (separateprocedure) --- Technical --- 63760, Colonoscopy, flexible; diagnostic, including collection of specimen(s) by brushing or washing, when performed (separateprocedure) Diagnosis Code(s): --- Professional --- Z86.010, Personal history of colonic polyps K64.8, Other hemorrhoids K57.30, Diverticulosis of large intestine without perforation orabscess without bleeding --- Technical --- Z86.010, Personal history of colonic polyps K64.8, Other hemorrhoids K57.30, Diverticulosis of large intestine without perforation orabscess without bleeding CPT copyright 2016 [employer]. All rights reserved. The codes documented in this report are preliminary and upon payroll supervisor reviewmay be revised to meet current compliance requirements. [address] [place] [address] Christophe Ann MD GI PROCEDURE ORDERABLES Final Result from Last 3 Months or Most Recently Relevant to Health Maintenance Insurance MEDICARE PART A & B [employer] MEDIC[employer] SUPPLEMENT MEDICARE PART A & B [employer] MEDICARE SUPPLEMENT MEDICARE PART A & B [facility] MEDICARE SUPPLEMENT MEDICARE PART A & B [facility] MEDICARE SUPPLEMENT MEDICARE PART A & B [facility] [employer] MEDICARE SUPPLEMENT MEDICARE PART A & B [facility] [employer] MEDICARE SUPPLEMENT MEDICARE PART A & B [facility] [employer] MEDICARE SUPPLEMENT MEDICARE PART A & B Member Subscriber Plan / Payer ( fective 2015-Present) Name:Akanksha Tran Member ID:[id number] Relation to Subscriber:Self Name:Akanksha Tran Subscriber ID:[id number] Payer ID:[id number] Group ID:Not on file Type:Medicare Address: [employer] [address] [place] [id number] [place] [address] EXTENSION MEDICARE SUPPLEMENT MEDICARE PART A & B [facility] EXT[employer]ION MEDICARE SUPPLEMENT Advance Directives For more information, please contact: [phone] (9AM - 5PM [place], Friday-Friday) * Full Code (Latest Code Status on File) Date Activated Date Inactivated Comments 07/19/2022 7:50 AM Question Answer Comments Code Status Confirmed With: Patient Care Teams Oil Painter Relationship Specialty Start Date End Date Christophe Ann MD PCP - General Family Medicine 11/17/17 Additional Source Comments The information contained in this document represents components of the legal health record. It is not the complete legal health record.[facility]
--- OUTSIDE RECORDS SUMMARY | 2024-12-08 15:19 | XMS_ITS | Encounter Summary ---
Author Organization [facility] Address [address] [place] [address] Phone Care Team Providers Care Cleat Feeder Name Role Phone Christophe Mayo MD Primary Care Provider [phone] Encounter Details Date Type Department Care Team (Late st Contact Info) Description 12/06/2024 Ancillary Orders Virtual Department [address] [place] [address] Leticia Mayo PA [address] [place] [phone] Osteopenia, unspecified location (Primary Dx); Other specified disorders of bone density and structure, unspecified site; Asymptomatic menopausal state Social History Tobacco Use Types Packs/Day Years [...] as of this encounter Plan of Treatment Scheduled Orders Name Type Priority Associated Diagnoses Orde r Schedule DXA Screening Imaging Routine Osteopenia, unspecified location Other specified disorders of bone density and structure, unspecified site Asymptomatic menopausal state Expected: 01/05/2025, Expires: 12/06/2025 documented as of this encounter Visit Diagnoses Diagnosis Osteopenia, unspecified location- Primary Other specified disorders of bone density and structure, unspecified site Asymptomatic menopausal state documented in this encounter Care Teams Cleat Feeder Relationship Specialty Start Date End Date Christophe Mayo MD [email or web address] PCP - General Family Medicine 11/17/17 documented as of this encounter Additional Source Comments The information contained in this document represents components of the legal health record. It is not the complete legal health record.[facility]
--- OUTSIDE RECORDS SUMMARY | 2024-12-08 15:19 | XMS_ITS | Encounter Summary ---
Author Organization [facility] Address [address] [place] [address] Phone Care Team Providers Care Security Assessor Name Role Phone Christophe Mayo MD Primary Care Provider [phone] Encounter Details Date Type Department Care Team (Latest Contact Info) Description 12/06/2024 Transcribe Orders Virtual Department [address] [place] [address] Leticia Mayo PA [address] [place] [phone] Osteopenia, unspecified location (Primary Dx) Social History Tobacco Use Types Packs/Day Years [...] Visit Diagnoses Diagnosis Osteopenia, unspecified location- Primary documented in this encounter Care Teams Security Assessor Relationship Specialty Start Date End Date Christophe Mayo MD [email or web address] PCP - General Family Medicine 11/17/17 documented as of this encounter Additional Source Comments The information contained in this document represents components of the legal health record. It is not the complete legal health record.[facility]
== END 2024-12-08 14:59 | disposition home or self-care (01) ==
LOC: HO.HUSH 14:07
PROVIDERS: PCP Physician Assistant; Visit Provider Urology
DX: N18.6 End stage renal disease (principal); Z87.440 Personal history of urinary (tract) infections; N30.20 Other chronic cystitis without hematuria; D84.821 Immunodeficiency due to drugs; Z79.899 Other long term (current) drug therapy
CPT/HCPCS: 99213

== ENCOUNTER → 2024-12-08 14:06 | Outpatient (BNVA) | payer MEDICARE, OTHER, SELFPAY | PROVIDERS: PCP Physician Assistant; Visit Provider Urology | DX: N18.6 End stage renal disease (principal); N30.20 Other chronic cystitis without hematuria; D84.821 Immunodeficiency due to drugs; Z79.899 Other long term (current) drug therapy; Z87.440 Personal history of urinary (tract) infections | CPT/HCPCS: 51798; 99212 ==

== ENCOUNTER 2025-01-26 10:47 | Outpatient (REF) | payer MEDICARE, OTHER, SELFPAY ==
[2025-01-26 11:41] LABS: Appearance Urine Cloudy; Glucose Urine UA Negative (Negative); PH 8.5 (5.0-9.0); Specific Gravity - Urine 1.015 (1.005-1.025); UMIC TRIGGER UA YES
--- OUTSIDE RECORDS SUMMARY | 2025-01-26 21:17 | XMS_ITS | Encounter Summary ---
Author Organization [facility] Address 100 [facility] 200 [place] [address] Phone Care Team Providers Care Sales Receptionist Name Role Phone Leticia Mayo Primary Care Provider [phone] Reason for Visit * Reason Comments Med Refill Encounter Details Date Type Department Care Team ([facility] st Contact Info) Description 08/05/2020 Refill [facility] 100 [facility] 200 [place] [phone] Oh Leiva MD 3550 [facility] 204 [place] [phone] Acute injury of kidney (HCC); Chronic kidney [...] (HCC) documented in this encounter Care Teams Sales Receptionist Relationship Specialty Start Date End Date Leticia Mayo PA [address] [place] [address] PCP - General Physician College Or University Business Manager 07/10/20 documented as of this encounter
--- OUTSIDE RECORDS SUMMARY | 2025-01-26 21:17 | XMS_ITS | Encounter Summary ---
Author Organization [facility] Address [address] [place] [address] Phone Care Team Providers Care Commercial Food Instructor Name Role Phone Leticia Mayo Primary Care Provider [phone] Encounter Details Date Type Department Care Team ([facility] st Contact Info) Description 01/22/2025 Treatment [facility]. [address] [address] Pinky Kincaid MD [address] [address] End stage renal disease; Dependence on renal dialysis Social History Tobacco Use Types Packs/Day Years [...] Dialysis Note - Pinky Kincaid MD - 01/22/2025 12:00 AM EST Patient: Akanksha Tran : 1950 Note Type: Dialysis Rounds-Comp Service Date: 01/22/2025 This patient was personally seen [id number] for a complete visit as part of routine monthly dialysis care for end stage renal disease. Attending Instructional Technology Facilitator: PINKY KINCAID MD Dialysis Location: DIALYSIS Schedule: Shift: 2 OVERVIEW Patient is stable. BP AND FLUID ASSESSMENT Acceptable blood pressure. Fluid status acceptable. ADEQUACY ASSESSMENT Kt/V, Natural Log 2.02 (11/13/24) 2.14 (10/16/24) 1.98 (09/07/24) UREA REDUCTION RATIO (%) 84 (01/15/25) 84 (12/11/24) 83 (11/13/24) BUN 50 (01/15/25) 62 (12/11/24) 65 (11/13/24) BUN Post Dialysis 8 (01/15/25) 10 (12/11/24) 11 (11/13/24) Creatinine 4.46 (01/15/25) 5.66 (12/11/24) 5.63 (11/13/24) Bicarbonate (CO2) 26 (01/15/25) 25 (12/11/24) 27 (11/13/24) Sodium 145 (01/15/25) 142 (12/11/24) 143 (11/13/24) Target met. Prescription compliance acceptable. ACCESS ASSESSMENT Vascular access examined. ANEMIA ASSESSMENT Hgb 11.7 (01/15/25) 11.0 (12/25/24) 10.9 (12/11/24) Iron Saturation (TSat) 31 (01/15/25) 22 (12/11/24) 34 (11/13/24) Ferritin 1,126 (01/15/25) 1,352 (12/11/24) 1,164 (11/13/24) Iron 66 (01/15/25) 43 (12/11/24) 74 (11/13/24) TIBC 211 (01/15/25) 199 (12/11/24) 216 (11/13/24) MCV 99.7 (01/15/25) 104.7 (12/11/24) 101.9 (11/13/24) Platelets 293 (01/15/25) 293 (12/11/24) 269 (11/13/24) Anemia targets met. Hemoglobin at target. BMM ASSESSMENT Calcium, Adjusted Total 9.3 01/15/25 8.9 12/11/24 9.2 11/13/24 Calcium 9.3 01/15/25 8.9 12/11/24 9.2 11/13/24 Phosphorus, Serum 4.5 01/15/25 3.8 12/11/24 3.4 11/13/24 Ca*PO4 41.8 01/15/25 33.8 12/11/24 31.3 11/13/24 PTH, Intact 161 12/11/24 210 11/20/24 236 10/16/24 Vitamin D, 25-Hydroxy 16 01/24/24 Magnesium 2.7 01/15/25 3.1 12/11/24 2.8 11/13/24 Alkaline Phosphatase 92 01/15/25 106 12/11/24 94 11/13/24 Aluminum 2 03/20/24 6 02/21/24 PTH within target. Phosphorus controlled. Calcium controlled. Bone and mineral metabolism parameters reviewed. NUTRITION ASSESSMENT Albumin 4.3 01/15/25 4.2 12/11/24 4.2 11/13/24 Potassium 3.7 01/18/25 3.8 01/15/25 3.4 01/04/25 Glucose 70 01/15/25 153 12/11/24 108 11/13/24 Albumin at goal. PHYSICAL EXAM Exam performed. Vital Signs Reviewed. CV - Blood pressure noted. No edema. EXT - No ulcers. ADDITIONAL LABS White Blood Cells 6.6 (01/15/25) 6.3 (12/11/24) 7.1 (11/13/24) Cholesterol 236 (12/11/24) 196 (09/07/24) 211 (06/12/24) HDL 81 (12/11/24) 79 (09/07/24) 73 (06/12/24) LDL-Calc 129 (12/11/24) 97 (09/07/24) 103 (06/12/24) Triglycerides 132 (12/11/24) 101 (09/07/24) 177 (06/12/24) Hep B Surface Antibody ?1,000 (03/20/24) ?1,000 (02/21/24) Uric Acid 8.2 (03/20/24) 8.1 (01/24/24) Chol/HDL Ratio 2.9 (12/11/24) 2.5 (09/07/24) 2.9 (06/12/24) ALT (SGPT) 15 (01/15/25) 15 (12/11/24) 13 (11/13/24) AST (SGOT) 23 (01/15/25) 23 (12/11/24) 20 (11/13/24) ADDITIONAL COMMENT COMMENTS: 03/23/24 stable 04/20/24 stable Signed by: PINKY KINACID MD on 01/22/2025 at 12:18:55 PM Transcribed by: PINKY KICNAID MD on 01/22/2025 at 12:18:55 PM documented in this encounter Plan of Treatment Not on file documented as of this encounter Visit Diagnoses Diagnosis End stage renal disease Dependence on renal dialysis documented in this encounter Care Teams Commercial Food Instructor Relationship Specialty Start Date End Date Leticia Mayo PA [address] [place] [phone] PCP - General Physician Tugboat Pilot 07/10/20 documented as of this encounter
--- OUTSIDE RECORDS SUMMARY | 2025-01-26 21:17 | XMS_ITS | Encounter Summary ---
Author Organization [facility] Address [address] [place] [address] Phone Care Team Providers Care Administrative Services Assistant Name Role Phone Christophe Mayo MD Primary Care Provider [phone] Encounter Details Date Type Department Care Team (Latest Contact Info) Description 11/17/2017 Transcribe Orders [facility] Phleb Junie 10 [facility] 2nd [place] [address] Dorina Perry PA-C [address], [address] [place] [address] Rectal bleeding (Primary Dx); Rectal pain Social History Tobacco Use Types Packs/Day Years Used Date Smoking Tobacco: Never Assessed Comments Unknown Sex and Gender Information Value Date Recorded Sex Assigned at Not on file Legal Sex Female 10:02 PM EDT Gender Identity Not on file Sexual Orientation Not on file documented as of this encounter Plan of Treatment Upcoming Encounters Date Type Department Care Team (Late st Contact Info) Description 07/17/2025 1:00 PM EDT Appointment [facility], Bone Density - [facility] [address] [place] [address] Leticia Mayo PA [address] [place] [phone] documented as of this encounter Results * (ABNORMAL) CBC (11/17/2017 10:41 AM EDT) WBC 5.59 3.40 - 11.20 K/uL [facility] RBC 4.85(H) 3.80 - 4.80 M/uL [facility] HGB 14.5 12.0 - 15.0 g/dL [facility] HCT 43.9 36.0 - 46.0 % [facility] PLT 229 130 - 400 K/uL [facility] MCV 90.5 79.0 - 98.0 fL [facility] MCH 29.9 27.0 - 34.8 pg [facility] MCHC 33.0 31.5 - 36.0 g/dL [facility] RDW 12.7 10.8 - 14.6 % [facility] MPV 11.3 9.4 - 12.4 fl [facility] NRBC 0.00 /100 WBCs [facility] ABSOLUTE NRBC 0.00 K/uL [facility] Blood 11/17/2017 10:4 1 AM EDT 11/17/2017 10:45 AM EDT Dorina Perry PA-C LAB BLOOD BKR ORDERABLES Final Result [facility] [address] [place] [address] documented in this encounter Visit Diagnoses Diagnosis Rectal bleeding- Primary Hemorrhage of rectum and anus Rectal pain Anal or rectal pain documented in this encounter Additional Health Concerns Infection Onset Date Last Indicated Resolved Time CoV-Risk 05/27/2020 05/28/2020 06/06/2020 1:23 AM EDT documented as of this encounter Care Teams Administrative Services Assistant Relationship Specialty Start Date End Date Christophe Mayo MD [email or web address] PCP - General Family Medicine 11/17/17 documented as of this encounter Additional Source Comments The information contained in this document represents components of the legal health record. It is not the complete legal health record.[facility]
--- OUTSIDE RECORDS SUMMARY | 2025-01-26 21:17 | XMS_ITS | Encounter Summary ---
Author Organization [facility] Address [address] [place] [address] Phone Care Team Providers Care Title Search Manager Name Role Phone Christophe Mayo MD Primary Care Provider [phone] Encounter Details Date Type Department Care Team (Late st Contact Info) Description 06/10/2018 Procedure Pass [facility] Endoscopy Admitting Dept Virtual Department [address] [place] [address] Social History Tobacco Use Types Packs/Day Years [...] Info) Description 07/17/2025 1:00 PM EDT Appointment [facility], Bone Density - [facility] [address] [place] [address] Leticia Mayo PA [address] [place] [phone] documented as of this encounter Visit Diagnoses Not on filedocumented in this encounter Additional Health Concerns Infection Onset Date Last Indicated Resolved Time CoV-Risk 05/27/2020 05/28/2020 06/06/2020 1:23 AM EDT documented as of this encounter Care Teams Title Search Manager Relationship Specialty Start Date End Date Christophe Mayo MD [email or web address] PCP - General Family Medicine 11/17/17 documented as of this encounter Additional Source Comments The information contained in this document represents components of the legal health record. It is not the complete legal health record.[facility]
--- OUTSIDE RECORDS SUMMARY | 2025-01-26 21:17 | XMS_ITS | Encounter Summary ---
Author Organization [facility] Address [address] [place] [address] [place] [address] Phone Care Team Providers Care Forestry Support Specialist Name Role Phone Leticia Mayo Primary Care Provider [phone] Encounter Details Date Type Department Care Team ([facility] st Contact Info) Description 08/11/2020 Orders Only [facility] [address] [place] [address] [place] [phone] Ricco Wall MD Antineutrophil cytoplasmic antibody positive [...] kidney documented in this encounter Care Teams Forestry Support Specialist Relationship Specialty Start Date End Date Leticia Mayo PA [address] [place] [phone] PCP - General Physician Lode Miner Blasting 07/10/20 documented as of this encounter
--- OUTSIDE RECORDS SUMMARY | 2025-01-26 21:17 | XMS_ITS | Patient Health Record ---
Author Organization [facility] Address [address] [place] [phone] Care Team Providers Care Informatics Spec Name Role Phone Alvaro Genao Jr [phone] Reason For Referral No Information Plan Of Treatment No Information
--- OUTSIDE RECORDS SUMMARY | 2025-01-26 21:17 | XMS_ITS | Encounter Summary ---
Author Organization [facility] Address [address] [place] [address] Phone Care Team Providers Care Spoilage Worker Name Role Phone Christophe Mayo MD Primary Care Provider [phone] Encounter Details Date Type Department Care Team (Late st Contact Info) Description 02/03/2018 Procedure Pass [facility] Endoscopy Admitting Dept Virtual Department [address] [place] [address] Social History Tobacco Use Types Packs/Day Years [...] Info) Description 07/17/2025 1:00 PM EDT Appointment [facility], Bone Density - [facility] [address] [place] [address] Leticia Mayo PA [address] [place] [phone] documented as of this encounter Visit Diagnoses Not on filedocumented in this encounter Additional Health Concerns Infection Onset Date Last Indicated Resolved Time CoV-Risk 05/27/2020 05/28/2020 06/06/2020 1:23 AM EDT documented as of this encounter Care Teams Spoilage Worker Relationship Specialty Start Date End Date Christophe Mayo MD [email or web address] PCP - General Family Medicine 11/17/17 documented as of this encounter Additional Source Comments The information contained in this document represents components of the legal health record. It is not the complete legal health record.[facility]
--- OUTSIDE RECORDS SUMMARY | 2025-01-26 21:17 | XMS_ITS | Encounter Summary ---
Author Organization [facility] Address [address] [facility] [facility] 200 [place] [address] Phone Care Team Providers Care Insulation Helper Name Role Phone Leticia Mayo Primary Care Provider [phone] Encounter Details Date Type Department Care Team ([facility] st Contact Info) Description 09/21/2020 Orders Only [facility] [address] [place] [address] [place] [address] Oh Leiva MD 3550 [facility] [address] [place] [phone] Acute kidney failure, not otherwise specified (HCC) [...] (HCC) documented in this encounter Care Teams Insulation Helper Relationship Specialty Start Date End Date Leticia Mayo PA [address] [place] [address] PCP - General Physician Voice Writing Reporter 07/10/20 documented as of this encounter
--- OUTSIDE RECORDS SUMMARY | 2025-01-26 21:17 | XMS_ITS | Clinical Summary ---
Author Organization [facility] Address [address] [place] [address] Phone Care Team Providers Care Geology Professor Name Role Phone Leticia Mayo Primary Care Provider [phone] Allergies No known active allergies Medications Nephro-Jese [...] Date Closed left hip fracture (CMS/HCC V24, CMS/HCC V 28) 01/12/2024 Overview (01/13/2024): Status post mechanical fall 01/08/24. X-ray 01/08/24 revealed acute comminuted displaced fracture of the left femoral neck. Underwent a left hip ORIF by Dr. Nichols on 01/09/24. ESRD (end stage renal diseas e) on dialysis ([facility] V24, [facility] V28) 01/12/2024 Granulomatosis with polyangiitis ([facility] V24, [facility] V28) 01/12/2024 Hypertension 01/12/2024 HLD (hyperlipidemia) Surgical History Surgery Date Site/Laterality Comments ORIF HIP FRACTURE Left HERNIA REPAIR PARTIAL HYSTERECTOMY N/A Medical History Medical History Date Comments HTN (hypertension) ESRD (end stage renal diseas e) on dialysis ([facility] V24, [facility] V28) Closed left hip fracture ([facility] V24, [facility] V 28) 01/08/2024 Granulomatosis with polyangiitis ([facility] V24, [facility] V28) Lung nodule HLD (hyperlipidemia) Vasculitis, ANCA positive ([facility] V24, [facility] V28) Social History Tobacco Use [...] Colonoscopy 1950 Cholesterol Screening (Lipid Panel) 01/11/2024 Falls Risk Assessment 01/11/2024 Hepatitis C Screening 01/11/2024 Medicare Annual Wellness Visit 01/11/2024 Osteoporosis Screening (Bone Density Screening) 01/11/2024 Depression Screening 03/10/2024 01/22/2024 COVID-19 Vaccine ( season) 2024 01/01/2024, 03/01/2023, 01/25/2022, Additional history exists Influenza Vaccine (#1) 2024 , 11/29/2022, 01/03/2022, Additional history exists Hypertension/CHF/CAD Annual BMP Blood Test 01/19/2025 01/20/2024, 01/17/2024, 01/13/2024, Additional history exists Social Influencers of Health Screening 01/21/2025 01/22/2024 [...] mmol/L LAB CHEMISTRY METHOD 01/20/2024 9:[address] [facility] Potassium 3.4(L) 3.5 - 5.5 mmol/L LAB CHEMISTRY METHOD 01/20/2024 9:[address] [facility] Chloride 100 96 - 110 mmol/L LAB CHEMISTRY METHOD 01/20/2024 9:[address] [facility] CO2 31 21 - 32 mmol/L LAB CHEMISTRY METHOD 01/20/2024 9:[address] [facility] Anion Gap 8 3 - 11 LAB CHEMISTRY METHOD 01/20/2024 9:[address] [facility] Glucose 131(H) 70 - 100 mg/dL LAB CHEMISTRY METHOD 01/20/2024 9:[address] [facility] BUN 92(H) 5 - 25 mg/dL LAB CHEMISTRY METHOD 01/20/2024 9:[address] [facility] Creatinine 5.25(H) 0.50 - 1.10 mg/dL LAB CHEMISTRY METHOD 01/20/2024 9:11 AM EST [facility] eGFR 8(L) >=60 mL/min/1. 73m2 LAB CHEMISTRY METHOD 01/20/2024 9:11 AM EST [facility] Comment:Calculation based on the Chronic Kidney Disease Epidemiology Collaboration (CKD-EPI) equation refit without adjustment for race. BUN/Creatinine Ratio 17.5 LAB CHEMISTRY METHOD 01/20/2024 9:11 AM EST [facility] Calcium 9.5 8.5 - 10.5 mg/dL LAB CHEMISTRY METHOD 01/20/2024 9:[address] [facility] Blood Venous blood specimen / Unknown Venipuncture / Unknown 01/20/2024 8:31 AM EST 01/20/2024 8:38 AM EST Shireen Bansal DO LAB BLOOD ORDERABLES Renetta l Result [facility]) [facility] [address] [place] [address], from Last 3 Months or Most Recently Relevant to Health Maintenance Insurance MEDICARE [facility] Advance Directives Documents on File Type Date Recorded Patient Cement Paver Expl anation Advance Directives and Living Will [...] currently active code status orders. Care Teams Geology Professor Relationship Specialty Start Date End Date Leticia Mayo PA [address] [place] [address] PA PCP - General Physician Rail Grinder 01/12/24
--- OUTSIDE RECORDS SUMMARY | 2025-01-26 21:17 | XMS_ITS | Encounter Summary ---
Author Organization [facility] Address [address] [place] [address] Phone Care Team Providers Care Photographic Spotter Name Role Phone Leticia Mayo Primary Care Provider [phone] Encounter Details Date Type Department Care Team ([facility] st Contact Info) Description 08/04/2020 Orders Only [facility] [address] [place] [phone] Ricco Wall MD Antineutrophil cytoplasmic antibody positive [...] titer (08/31/2020 2:04 PM EDT) Pathologist [facility] Myeloperoxidase Ab <9.0 [facility] Comment: Reference range: 0.0 to 9.0 Unit: U/mL PR3 Ab 5.1(H) [facility] Comment: Reference range: 0.0 to 3.5 Unit: U/mL Test performed at [address] [address] Testing performed or reported by [facility], a Service of [facility], [address] [place] [address] Willam Serrano MD, Boarding House Manager Blood specimen (specimen) Venous blood / Unknown 08/31/2020 2:04 PM EDT 08/31/2020 2:33 PM EDT us Ricco Wall MD LAB BLOOD ORDERABLES Renetta schulte Result [facility] * (ABNORMAL) Renal Function Panel (08/31/2020 2:03 PM EDT) Pathologist [facility] Glucose 324(H) (70-99) MG/DL [facility] BUN 68(H) (8-23) MG/DL [facility] Creatinine 3.5(H) [...] and Americans. Testing performed or reported by [facility], a Service of [facility], [address] [place] [address] Katrin Ragsdale MD, Boarding House Manager Blood specimen (specimen) Venous blood / Unknown [...] kidney documented in this encounter Care Teams Photographic Spotter Relationship Specialty Start Date End Date Leticia Mayo PA [address] [place] [phone] PCP - General Physician Meat Packer 07/10/20 documented as of this encounter
--- OUTSIDE RECORDS SUMMARY | 2025-01-26 21:17 | XMS_ITS | Encounter Summary ---
Author Organization [facility] Address [address] [place] [address] Phone Care Team Providers Care General Assembler Installer Name Role Phone Leticia Mayo Primary Care Provider [phone] Encounter Details Date Type Department Care Team ([facility] st Contact Info) Description 08/18/2020 Orders Only [facility] [address] [place] [phone] Ricco Wall MD Antineutrophil cytoplasmic antibody positive [...] PM EDT documented as of this encounter Functional Status documented as of this encounter Plan of [...] 3:10 PM EDT) C ANCA Titer <1:20 [facility] Comment: Reference range: Neg:<1:20 Unit: titer Perinuclear (P-ANCA) <1:20 [facility] Comment: Reference range: Neg:<1:20 Unit: titer (NOTE) The presence of positive fluorescence exhibiting P-ANCA or C-ANCA patterns alone is not specific for the diagnosis of Anahy's Granulomatosis (WG) or microscopic polyangiitis. Decisions about treatment should not be based solely on ANCA IFA results. The International ANCA Group Consensus recommends follow up testing of positive sera with both NV-3 and MPO-ANCA enzyme immunoassays. As many as 5% serum samples are positive only by EIA. Ref. AM J Clin Pathol 1999;111:507-513. Atypical p-ANCA <1:20 [facility] Comment: Reference range: Neg:<1:20 Unit: titer Testing performed by [facility], [address] [place] [id number]. (NOTE) The atypical pANCA pattern has been observed in a significant percentage of patients with ulcerative colitis, primary sclerosing cholangitis and autoimmune hepatitis. Testing performed or reported by [facility], a Service of [facility], [address] [place] [address] [place] [address] Willam Serrano MD, Pipe Cutter 08/18/2020 3:10 PM EDT 08/18/2020 3:13 PM EDT Ricco Wall MD LAB BLOOD ORDERABLES Renetta l Result [facility] * (ABNORMAL) Protein, Total, Random Urine w/Creatinine (Protein/Creat Ratio) (08/18/2020 3:10 PM EDT) [facility] Protein/Creatine Ratio 3.07(H) (0-0.2) [facility] Protein, Urine 177 MG/DL [facility] Comment: The urine microalbumin test is designed to monitor renal function. When screening for Bence Obrien proteinuria, urine electrophoresis is recommended. Creatinine, Urine 57.6 MG/DL [facility] Comment: Testing performed or reported by [facility], a Service of [facility], [address] [place] [id number] Katrin Ragsdale MD, Pipe Cutter Urine specimen (specimen) Urine specimen obtained by clean catch procedure / Unknown 08/18/2020 3:10 PM EDT 08/18/2020 3:13 PM EDT Ricco Wall MD LAB URINE ORDERABLES Renetta l Result [facility] * (ABNORMAL) ANCA AB Scrn with titer (08/18/2020 3:10 PM EDT) Pathologist [facility] Myeloperoxidase Ab <9.0 [facility] Comment: Reference range: 0.0 to 9.0 Unit: U/mL PR3 Ab 8.2(H) [facility] Comment: Reference range: 0.0 to 3.5 Unit: U/mL Test performed at [address] [address] Testing performed or reported by [facility], a Service of [facility], [address] [place] [address] Willam Serrano MD, Pipe Cutter Blood specimen (specimen) Venous blood / Unknown 08/18/2020 3:10 PM EDT 08/18/2020 3:13 PM EDT Ricco Wall MD LAB BLOOD ORDERABLES Renetta schulte Result [facility] * (ABNORMAL) Renal Function Panel (08/18/2020 3:10 PM EDT) Glucose 233(H) (70-99) MG/DL [facility] BUN 69(H) (8-23) MG/DL [facility] Creatinine 4.0(H) (0.5-1.0) MG/DL [facility] Sodium 139 (133-145) MMOL/L [facility] Potassium 4.2 (3.6-5.2) MMOL/L [facility] Chloride 93(L) (98-107) MMOL/L [facility] Bicarbonate (CO2) 30(H) (22-29) MMOL/L [facility] Anion Gap 16 (4-17) [facility] Albumin 4.2 (3.4-4.8) GM/DL [facility] Calcium 9.1 (8.6-10.5) MG/DL [facility] Phosphorus, Serum 3.4 (2.5-4.5) MG/DL [facility] Est GFR Non 11 ML/MIN/1.7 3 M2 [facility] Comment: Creatinine based estimated glomerular filtration rate (eGFR) is calculated using the Chronic Kidney Disease Epidemiology Collaboration (CKD-EPI). The CKD-EPI creatinine equation has not been validated in children (<18 years), women or in some racial or ethnic subgroups other than Caucasians and Americans. EST GFR 12 ML/MIN/1.7 3 M2 [facility] Comment: Creatinine based estimated glomerular filtration rate (eGFR) is calculated using the Chronic Kidney Disease Epidemiology Collaboration (CKD-EPI). The CKD-EPI creatinine equation has not been validated in children (<18 years), women or in some racial or ethnic subgroups other than Caucasians and Americans. 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
--- OUTSIDE RECORDS SUMMARY | 2025-01-26 21:18 | XMS_ITS | Encounter Summary ---
Author Organization [facility] Address [address] [facility] [address] [facility] [address] [place] [address] Phone Care Team Providers Care Greaser And Oiler Name Role Phone Leticia Mayo Primary Care Provider [phone] Encounter Details Date Type Department Care Team ([facility] st Contact Info) Description 08/07/2021 Telephone [facility] [address] [facility] [address] [place] [phone] Oh Leiva MD [address] [facility] [address] [place] [phone] Social History Tobacco Use Types Packs/Day Years [...] Carvedilol and clonidine Please send to the [facility] on [employer] Thank you documented in this encounter Plan of Treatment Not on file documented as of this encounter Visit Diagnoses Not on filedocumented in this encounter Care Teams Greaser And Oiler Relationship Specialty Start Date End Date Leticia Mayo PA [address] [place] [phone] PCP - General Physician Measurement Department Chief Clerk 07/10/20 documented as of this encounter
--- OUTSIDE RECORDS SUMMARY | 2025-01-26 21:18 | XMS_ITS | Patient Health Record ---
Author Organization [facility] Address [address] [place] [address] Care Team Providers Care Wire Coating Machine Operator Name Role Phone Christophe Mayo MD Primary Care Provider Unavaila Lester Nelson Unavailable [phone] Reason For Referral No Information Medications Medication SIG (Take, Route, Frequency, Duration) Notes Start Date End Date Status amLODIPine Besylate 5 MG 1 tablet Orally Once a day Active Problems No Known Problems Plan Of Treatment Pending Test Test Name Order Date 64777-Mnnk, 1-14 01/21/2014 Insurance Providers Payer Name Payer Address Payer Phone Subscriber Number Group Number Insured Name Patient Relationship to Insured Coverage Start Date Coverage End Date [employer] ([employer]) [address] [place] [address] [phone] [id number] Akanksha Tran Self - patient is the insured Medical (General) History Medical History History ICD Code Arthritis High blood pressure Psoriasis/eczema Reflux Measles Mumps Chicken pox Surgical History Surgery Date(Month/Year) hysterectomy 2005 hernia 2011
--- OUTSIDE RECORDS SUMMARY | 2025-01-26 21:18 | XMS_ITS | Clinical Summary ---
Author Organization [facility] Address [address] [place] [address] Phone Care Team Providers Care Toddler Nanny Name Role Phone Christophe Ann MD Primary Care Provider [phone] Allergies No known active allergies Medications antiox. [id number] t-[id number] 280-10-2 mg Cap as directed Active torsemide (DEMADEX) 20 MG tablet Take 20 mg by mouth daily. 2 Active sevelamer carbonate (RENVELA) 800 mg tablet Take 800 mg by mouth 2 (two) times a day. 2 Active ferrous sulfate 325 mg (65 mg platinum iron) tablet Take 325 mg by mouth [...] Description 12/06/2024 Ancillary Orders Virtual Department [address] [place] [address] Leticia Ann PA Osteopenia, unspecified location (Primary Dx); Other specified disorders of bone density and structure, unspecified site; Asymptomatic menopausal state 12/06/2024 Transcribe Orders Virtual Department [address] [place] [address] Leticia Ann PA Osteopenia, unspecified location (Primary [...] 07/11/2022 9:42 AM EDT Plan of Treatment Upcoming Encounters Date Type Department Care Team (Late st Contact Info) Description 07/17/2025 1:00 PM EDT Appointment [facility], Bone Density - [address] [address] Leticia Ann PA [address] [place] [phone] Health Maintenance Due Date Last Done Comments LIPID PANEL 1949 DEPRESSION SCREENING 1961 SMOKING Hx and SMOKELESS TOBACCO SCREENING 1962 HEPATITIS C SCREENING 11/24/1967 COLOGUARD 1994 FIT TEST 1994 FOBT 1994 SIGMOIDOSCOPY 1994 VIRTUAL COLONOSCOPY 1994 OSTEOPOROSIS SCREENING INITIAL (ONE-TIME) 2014 Adult Td,Tdap Booster 12/09/2019 12/08/2009 PNEUMOCOCCAL VACCINES (50+ years) (2 of 2 - PCV) 04/27/2022 04/27/2021 INFLUENZA VACCINE (#1) 2024 , 01/11/2021, 12/21/2019, Additional history exists COVID-19 VACCINE ( - 2024- season) 2024 01/25/2022, 06/26/2021, 02/26/2021, Additional history [...] this topic Medical Devices Implanted Type Area Soaping Department Supervisor Device Identifier Shelf Expiration Date Model / Serial / Lot Mesh Synthetic 6.0 Digna Abdominal Non Absorbable Square Polypropylene Bx/6ea - [id number] Implanted:Qty: 1 on 07/19/2022 by Cora Webb MD at [facility] STANDARD Left: Groin [employer] / DIVISION OF J 12/07/2022 [facility] / / [id number] Shunt Shunt Left: Arm Procedures Procedure Name [...] 68 Admit Type: Outpatient Gender: Female Room: [place] [address] Referring MD: CHRISTOPHE ANN MD Exam Type: Colonoscopy Indications: High [...] monitored continuously. The Olympus adult variable colonoscope [id number] #[id number] was introduced through the anus and [...] 11:30 AM Procedure Code(s): --- Professional --- 08689, Colonoscopy, flexible; diagnostic, including collection of specimen(s) by brushing or washing, when performed (separateprocedure) --- Technical --- 90303, Colonoscopy, flexible; diagnostic, including collection of specimen(s) by brushing or washing, when performed (separateprocedure) Diagnosis Code(s): --- Professional --- Z86.010, Personal history of colonic polyps K64.8, Other hemorrhoids K57.30, Diverticulosis of large intestine without perforation orabscess without bleeding --- Technical --- Z86.010, Personal history of colonic polyps K64.8, Other hemorrhoids K57.30, Diverticulosis of large intestine without perforation orabscess without bleeding CPT copyright 2016 [employer]. All rights reserved. The codes documented in this report are preliminary and upon corporate concierge reviewmay be revised to meet current compliance requirements. [address], [place] [address] Christophe Ann MD GI PROCEDURE ORDERABLES Final Result from Last 3 Months or Most Recently Relevant to Health Maintenance Insurance MEDICARE PART A & B [facility] [employer] MEDICARE SUPPLEMENT MEDICARE PART A & B [facility] [employer] MEDICARE SUPPLEMENT MEDICARE PART A & B [facility] [employer] MEDICARE SUPPLEMENT MEDICARE PART A & B [facility] [employer] MEDICARE SUPPLEMENT MEDICARE PART A & B [facility] [employer] MEDICARE SUPPLEMENT MEDICARE PART A & B [employer] MEDICARE SUPPLEMENT MEDICARE PART A & B [employer] MEDICARE SUPPLEMENT MEDICARE PART A & B [employer] MEDICARE SUPPLEMENT MEDICARE PART A & B [employer] MEDICARE SUPPLEMENT Advance Directives For more information, please contact: [phone] (9AM - 5PM Jaquelin/[facility], Friday-Friday) * Full Code (Latest Code Status on File) Date Activated Date Inactivated Comments 07/19/2022 7:50 AM Question Answer Comments Code Status Confirmed With: Patient Care Teams Toddler Nanny Relationship Specialty Start Date End Date Christophe Ann MD PCP - General Family Medicine 11/17/17 Additional Source Comments The information contained in this document represents components of the legal health record. It is not the complete legal health record.[facility]
--- OUTSIDE RECORDS SUMMARY | 2025-01-26 21:18 | XMS_ITS | Encounter Summary ---
Author Organization [facility] Address [address] [place] [address] Phone Care Team Providers Care Technical Support Internship Name Role Phone Christophe Mayo MD Primary Care Provider [phone] Encounter Details Date Type Department Care Team ([facility] Contact Info) Description 12/06/2024 Ancillary Orders Virtual Department [address] [place] [address] Leticia Mayo PA [address] [place] [phone] Osteopenia, unspecified location (Primary Dx); Other specified [...] Encounters Date Type Department Care Team (Late Contact Info) Description 07/17/2025 1:00 PM EDT Appointment [facility], Bone Density - [facility] [address] [place] [address] Leticia Mayo PA [address] [place] [address] Scheduled Orders Name Type Priority Associated Diagnoses [...] state documented in this encounter Care Teams Technical Support Internship Relationship Specialty Start Date End Date Christophe Mayo MD [email or web address] PCP - General Family Medicine 11/17/17 documented as of this encounter Additional Source Comments The information contained in this document represents components of the legal health record. It is not the complete legal health record.[facility]
--- OUTSIDE RECORDS SUMMARY | 2025-01-26 21:18 | XMS_ITS | Encounter Summary ---
Author Organization [facility] Address [address] [place] [address] Phone Care Team Providers Care Craft Coordinator Name Role Phone Christophe Mayo MD Primary Care Provider [phone] Encounter Details Date Type Department Care Team (Late st Contact Info) Description 07/19/2022 Procedure Pass OR Admitting Dept - Virtual Department [address] [place] [address] Social History Tobacco Use Types Packs/Day Years [...] Info) Description 07/17/2025 1:00 PM EDT Appointment [facility], Bone Density - [facility] [address] [place] [address] Leticia Mayo PA [address] [place] [phone] documented as of this encounter Visit Diagnoses Not on filedocumented in this encounter Care Teams Craft Coordinator Relationship Specialty Start Date End Date Christophe Mayo MD [email or web address] PCP - General Family Medicine 11/17/17 documented as of this encounter Additional Source Comments The information contained in this document represents components of the legal health record. It is not the complete legal health record.[facility]
--- OUTSIDE RECORDS SUMMARY | 2025-01-26 21:18 | XMS_ITS | Encounter Summary ---
Author Organization [facility] Address [address] [place] [address] Phone Care Team Providers Care Hot Plate Plywood Press Offbearer Name Role Phone Christophe Mayo MD Primary Care Provider [phone] Encounter Details Date Type Department Care Team (Latest Contact Info) Description 12/06/2024 Transcribe Orders Virtual Department [address] [place] [address] Leticia Mayo PA [address] [place] [phone] Osteopenia, unspecified location (Primary Dx) Social History [...] Info) Description 07/17/2025 1:00 PM EDT Appointment [facility], Bone Density - [facility] [address] [place] [address] Leticia Mayo PA [address] [place] [phone] documented as of this encounter Visit Diagnoses Diagnosis Osteopenia, unspecified location- Primary documented in this encounter Care Teams Hot Plate Plywood Press Offbearer Relationship Specialty Start Date End Date Christophe Mayo MD [email or web address] PCP - General Family Medicine 11/17/17 documented as of this encounter Additional Source Comments The information contained in this document represents components of the legal health record. It is not the complete legal health record.[facility]
--- OUTSIDE RECORDS SUMMARY | 2025-01-26 21:18 | XMS_ITS | Clinical Summary ---
Author Organization [facility] Address [address] [place] [address] [place] [address] Phone Care Team Providers Care Title 1 Tutor Name Role Phone Leticia Mayo Primary Care Provider [phone] Allergies No known active allergies Medications cholecalciferol [...] positive vasculitis (HCC),Anemia in chronic kidney disease 11907 Units IJ Once 07/31/2020 A ctive Active [...] Encounters Date Type Department Care Team Description 01/22/2025 Treatment [facility] [address] [phone] Avi Kincaid MD End stage renal disease; Dependence on renal dialysis 01/11/2025 Treatment [facility] [address] [phone] Avi Kincaid MD End stage renal disease; Dependence on renal dialysis 01/04/2025 Treatment [facility] [address] [phone] Avi Kincaid MD End stage renal disease; Dependence on renal dialysis 12/28/2024 Treatment [facility] [address] [phone] Avi Kincaid MD End stage renal disease; Dependence on renal dialysis 12/25/2024 Treatment [facility] [address] [phone] Avi Kincaid MD End stage renal disease; Dependence on renal dialysis 12/11/2024 Treatment [facility] [address] [phone] Avi Kincaid MD End stage renal disease; Dependence on renal dialysis 12/04/2024 Treatment [facility] [address] [phone] Avi Kincaid MD End stage renal disease; Dependence on renal dialysis 11/27/2024 Treatment [facility] [address] [phone] Avi Kincaid MD End stage renal disease; Dependence on renal dialysis 11/20/2024 Treatment [facility] [address] [phone] Avi Kincaid MD End stage renal disease; Dependence on renal dialysis 11/13/2024 Treatment [facility] [address] [phone] Avi Kincaid MD End stage renal disease; Dependence on renal dialysis 11/06/2024 Treatment [facility] [address] [phone] Avi Kincaid MD End stage renal disease; Dependence on renal dialysis 11/02/2024 Treatment [facility] [address] [phone] Avi Kincaid MD End stage renal disease; Dependence on renal dialysis 10/30/2024 Orders Only [facility] [address] [phone] Avi Kincaid MD 10/26/2024 Treatment [facility] [address] [phone] Avi Kincaid MD End stage renal disease; Dependence on renal dialysis from Last 3 Months Family History Medical [...] Colorectal Cancer Screening: Sigmoidoscopy 1998 Pneumococcal Vaccine: 50+ Ye ars (2 of 2 - PCV) 04/27/2022 04/27/2021 Influenza Vaccine (#1) 2024 , 01/18/2021, 12/02/2018, Additional history exists Pneumococcal Vaccine: Peds ( 0 to 5 Years) and At-Risk Patients (6 to 49 Years) Discontinued 04/27/2021 Procedures Procedure Name Priority Date/Time Associated Diagnosis Comments LIH () Routine 01/22/2025 3:00 AM EST POTASSIUM Routine 01/22/2025 3:00 AM EST COLLECTION DATE () Routine 01/22/2025 3:00 AM EST LIH () Routine 01/18/2025 3:00 AM EST POTASSIUM Routine 01/18/2025 3:00 AM EST HEPATITIS B SURFACE ANTIGEN W/REFL CONFIRM Routine 01/15/2025 3:00 AM EST FERRITIN Routine 01/15/2025 3:00 AM EST TRANSFERRIN SATURATION Routine 3:00 AM EST PROTEIN, TOTAL, SERUM Routine 01/15/2025 3:00 AM EST ELECTROLYTE PANEL Routine 01/15/2025 3:0 0 AM EST MAGNESIUM Routine 01/15/2025 3:00 AM EST LACTATE DEHYDROGENASE Routine 01/15/2025 3:00 AM EST LIH () Routine 01/15/2025 3:00 AM EST GLUCOSE, RANDOM Routine 01/15/2025 3:00 AM EST CREATININE, SERUM Routine 01/15/2025 3:0 0 AM EST BILIRUBIN, TOTAL Routine 01/15/2025 3:00 AM EST BUN/CREATININE RATIO Routine 01/15/2025 3:00 AM EST AST Routine 01/15/2025 3:00 AM EST ALT Routine 01/15/2025 3:00 AM EST CALCIUM PHOSPHORUS PRODUCT, ADJUSTED (HC) Routine 01/15/2025 3:00 AM EST ALKALINE PHOSPHATASE Routine 01/15/2025 3:00 AM EST CBC AND DIFFERENTIAL Routine 01/15/2025 3:00 AM EST KT/V STANDARD, URR (<>3X/WK) Routine 01/15/2025 3:00 AM EST LIH (HC) Routine 01/04/2025 3:00 AM EDT POTASSIUM Routine 01/04/2025 3:00 AM EDT POTASSIUM Routine 01/01/2025 3:00 AM EDT LIH (HC) Routine 01/01/2025 3:00 AM EDT COLLECTION DATE (HC) Routine 01/01/2025 3:00 AM EDT LIH (HC) Routine 12/28/2024 3:00 AM EDT POTASSIUM Routine 12/28/2024 3:00 AM EDT LIH (HC) Routine 12/25/2024 3:00 AM EDT POTASSIUM Routine 12/25/2024 3:00 AM EDT HEMOGLOBIN AND HEMATOCRIT, BLOOD Routine 12/25/2024 3:00 AM EDT LIH (HC) Routine 12/21/2024 3:00 AM EDT POTASSIUM Routine 12/21/2024 3:00 AM EDT POTASSIUM Routine 12/18/2024 3:00 AM EDT LIH (HC) Routine 12/18/2024 3:00 AM EDT LIH (HC) Routine 12/14/2024 3:00 AM EDT POTASSIUM Routine 12/14/2024 3:00 AM EDT HEPATITIS B SURFACE ANTIGEN W/REFL CONFIRM Routine 12/11/2024 3:00 AM EDT PROTEIN, TOTAL, SERUM Routine 12/11/2024 3:00 AM EDT TRANSFERRIN SATURATION Routine 3:00 AM EDT MAGNESIUM Routine 12/11/2024 3:00 AM EDT LIPID PANEL Routine 12/11/2024 3:00 AM EDT ELECTROLYTE PANEL Routine 12/11/2024 3:0 0 AM EDT LACTATE DEHYDROGENASE Routine 12/11/2024 3:00 AM EDT LIH (HC) Routine 12/11/2024 3:00 AM EDT GLUCOSE, RANDOM Routine 12/11/2024 3:00 AM EDT CREATININE, SERUM Routine 12/11/2024 3:0 0 AM EDT BILIRUBIN, TOTAL Routine 12/11/2024 3:00 AM EDT BUN/CREATININE RATIO Routine 12/11/2024 3:00 AM EDT AST Routine 12/11/2024 3:00 AM EDT ALT Routine 12/11/2024 3:00 AM EDT CALCIUM PHOSPHORUS PRODUCT, ADJUSTED (HC) Routine 12/11/2024 3:00 AM EDT ALKALINE PHOSPHATASE Routine 12/11/2024 3:00 AM EDT PTH, INTACT Routine 12/11/2024 3:00 AM EDT FERRITIN Routine 12/11/2024 3:00 AM EDT CBC AND DIFFERENTIAL Routine 12/11/2024 3:00 AM EDT KT/V STANDARD, URR (<>3X/WK) Routine 12/11/2024 3:00 AM EDT LIH (HC) Routine 12/07/2024 3:00 AM EDT POTASSIUM Routine 12/07/2024 3:00 AM EDT HEMOGLOBIN Routine 12/04/2024 3:00 AM EDT LIH (HC) Routine 11/30/2024 3:00 AM EDT POTASSIUM Routine 11/30/2024 3:00 AM EDT HEMOGLOBIN AND HEMATOCRIT, BLOOD Routine 11/27/2024 3:00 AM EDT COLLECTION DATE (HC) Routine 11/27/2024 3:00 AM EDT LIH (HC) Routine 2024 3:00 AM EDT POTASSIUM Routine 2024 3:00 AM EDT PTH, INTACT Routine 11/20/2024 3:00 AM EDT LIH (HC) Routine 11/20/2024 3:00 AM EDT POTASSIUM Routine 11/20/2024 3:00 AM EDT HEPATITIS B SURFACE ANTIGEN W/REFL CONFIRM Routine 11/13/2024 3:00 AM EDT TRANSFERRIN SATURATION Routine 3:00 AM EDT PROTEIN, TOTAL, SERUM Routine 11/13/2024 3:00 AM EDT MAGNESIUM Routine 11/13/2024 3:00 AM EDT LIH (HC) Routine 11/13/2024 3:00 AM EDT ELECTROLYTE PANEL Routine 11/13/2024 3:0 0 AM EDT GLUCOSE, RANDOM Routine 11/13/2024 3:00 AM EDT LACTATE DEHYDROGENASE Routine 11/13/2024 3:00 AM EDT BUN/CREATININE RATIO Routine 11/13/2024 3:00 AM EDT CREATININE, SERUM Routine 11/13/2024 3:0 0 AM EDT BILIRUBIN, TOTAL Routine 11/13/2024 3:00 AM EDT AST Routine 11/13/2024 3:00 AM EDT ALT Routine 11/13/2024 3:00 AM EDT ALKALINE PHOSPHATASE Routine 11/13/2024 3:00 AM EDT CALCIUM PHOSPHORUS PRODUCT, ADJUSTED (HC) Routine 11/13/2024 3:00 AM EDT FERRITIN Routine 11/13/2024 3:00 AM EDT KT/V NATURAL LOG, URR (HC) Routine 11/13/2024 3:00 AM EDT COLLECTION DATE (HC) Routine 11/13/2024 3:00 AM EDT CBC AND DIFFERENTIAL Routine 11/13/2024 3:00 AM EDT LIH (HC) Routine 11/02/2024 3:00 AM EDT PHOSPHATE ( PHOSPHORUS) Routine 11/02/2024 3:00 AM EDT LIH (HC) Routine 10/30/2024 3:00 AM EDT POTASSIUM Routine 10/30/2024 3:00 AM EDT HEMOGLOBIN AND HEMATOCRIT, BLOOD Routine 10/30/2024 3:00 AM EDT from Last 3 Months Results * Collection Date (01/22/2025 3:00 AM EST) Only the most recent of4 resultswithin the time period is included. Collection Date See Comment [facility] Comment: Patient sample received may exceed specimen stability, based on the collection date electronically provided. When reviewing patient results, verify collection information and consider specimen stability before acting on any critical or panic results. 01/22/2025 3:00 AM EST Avi Kincaid MD LAB HISTORICA [id number] RESULTS Final Result [facility] [address] [place] [address] * LIH (01/22/2025 3:00 AM EST) Only the most recent of18 resultswithin the time period is included. Lipemia Normal Normal [facility] Icterus Normal Normal [facility] Hemolysis Normal Normal [facility] 01/22/2025 3:00 AM EST 01/25/2025 2:26 PM EST Avi Kincaid MD LAB HISTORICA [id number] RESULTS Final Result Performing Organization Address City/[facility] Co de Phone Number [facility] [address] [place] [address] * Potassium (01/22/2025 3:00 AM EST) Only the most recent of14 resultswithin the time period is included. Potassium 3.7 3.4 - 5.0 mEq/L [facility] 01/22/2025 3:00 AM EST 01/25/2025 2:26 PM EST us Avi Kincaid MD LAB BLOOD ORDERABLES Final Result Performing Organization Address [facility] Phone Number [facility] [address] [place] [address] * (ABNORMAL) Kt/V Standard, URR (<>3x/wk) (01/15/2025 3:00 AM EST) Only the most recent of2 resultswithin the time period is included. Treatment Time 181 min [facility] Number of Treatments 2 treatment s/wk [facility] Pre-Weight, lb 54.3 kg [facility] Post-Weight, lb 53.4 kg [facility] Ultrafiltration Rate 6 <=13 mL/kg/hr [facility] Comment: Recommend achieving Ultrafiltration Rate (UFR) <=10 mL/kg/hr References: Davonte GROVER et al. Kidney Int. 2010; 79(2):250-257 BUN 50(H) 7 - 25 mg/dL [facility] BUN Post Dialysis 8 7 - 25 mg/dL [facility] UREA REDUCTION RATIO (%) 84 >=65 % [facility] Kt/V, Standard 1.66(L) >=2.0 [facility] 01/15/2025 3:00 AM EST 01/17/2025 1:30 PM EST Avi Kincaid MD LAB BLOOD ORDERABLES Final Result Performing Organization Address [facility] Co de Phone Number [facility] [address] [place] [address] * Calcium Phosphorus Product, Adjusted (01/15/2025 3:00 AM EST) Only the most recent of3 resultswithin the time period is included. Pathologist [facility] Albumin 4.3 3.6 - 5.4 g/dL [facility] Calcium 9.3 8.6 - 10.3 mg/dL [facility] Phosphorus, Serum 4.5 2.5 - 5.0 mg/dL [facility] Ca*PO4 41.8 <55.0 mg2/dL2 [facility] Calcium, Adjusted Total 9.3 8.6 - 10.3 mg/dL [facility] CA*PO4 CORRCTD 41.8 <55.0 mg2/dL2 [facility] 01/15/2025 3:00 AM EST 01/17/2025 1:30 PM EST us Avi Kincaid MD LAB HISTORICA [id number] RESULTS Final Result Performing Organization Address City/[facility]/ZIP Co de Phone Number [facility] [address] [place] [address] * Hepatitis B Surface Ag w/Reflex Confirmation (01/15/2025 3:00 AM EST) Only the most recent of3 resultswithin the time period is included. [facility] Hep B Surface Antigen Negative Negative [facility] 01/15/2025 3:00 AM EST 01/17/2025 1:30 PM EST Avi Kincaid MD LAB BLOOD ORDERABLES Final Result Performing Organization Address City/[facility]/ZIP Co de Phone Number [facility] [address] [place] [address] * BUN/CREATININE RATIO (01/15/2025 3:00 AM EST) Only the most recent of3 resultswithin the time period is included. [facility] BUN/Creatinine Ratio 11.2 <=23.0 [facility] 01/15/2025 3:00 AM EST 01/17/2025 1:30 PM EST us Avi Kincaid MD LAB HISTORICA [id number] RESULTS Final Result Performing Organization Address City/[facility] Co de Phone Number [facility] [address] [place] [address] * (ABNORMAL) TSAT (01/15/2025 3:00 AM EST) Only the most recent of3 resultswithin the time period is included. [facility] Iron 66 50 - 170 ug/dL [facility] Transferrin 151(L) 250 - 380 mg/dL [facility] TIBC 211 211 - 406 ug/dL [facility] Iron Saturation (TSat) 31 22 - 52 % [facility] 01/15/2025 3:00 AM EST 01/17/2025 1:30 PM EST us Avi Kincaid MD LAB BLOOD ORDERABLES Final Result Performing Organization Address [facility] de Phone Number [facility] [address] [place] [address] * (ABNORMAL) CBC and Differential (01/15/2025 3:00 AM EST) Only the most recent of3 resultswithin the time period is included. [facility] DIFFERENTIAL MANUAL, 2 Not Indicated [facility] White Blood Cells 6.6 4.0 - 10.0 K/uL [facility] RBC 3.72(L) 3.93 - 5.22 M/uL [facility] Hgb 11.7 11.2 - 15.7 g/dL [facility] Hemoglobin x 3 35.1 33.6 - 47.1 g/dL [facility] Hematocrit 37.1 34.1 - 44.9 % [facility] MCV 99.7(H) 79.4 - 94.8 fL [facility] MCH 31.5 25.6 - 32.2 pg [facility] MCHC 31.5(L) 32.2 - 35.5 g/dL [facility] RDW 13.0 11.7 - 14.4 % [facility] Platelets 293 182 - 369 K/uL [facility] MPV 11.6 9.2 - 12.8 fL [facility] Neutrophils Relative 64.9 34.0 - 71.1 % [facility] Lymphocytes Relative 26.7 19.3 - 51.7 % [facility] Monocytes 5.3 4.7 - 12.5 % [facility] Eosinophils Relative 1.7 0.7 - 5.8 % [facility] Basophils Relative 0.9 0.1 - 1.2 % [facility] Immature Granulocytes 0.5 0.0 - 1.0 % [facility] 01/15/2025 3:00 AM EST 01/17/2025 1:35 PM EST us Avi Kincaid MD LAB BLOOD ORDERABLES Final Result Performing Organization Address City/[facility] Co de Phone Number [facility] [address] [place] [address] * ALT (01/15/2025 3:00 AM EST) Only the most recent of3 resultswithin the time period is included. ALT (SGPT) 15 10 - 49 U/L [facility] 01/15/2025 3:00 AM EST 01/17/2025 1:30 PM EST Avi Kincaid MD LAB BLOOD ORDERABLES Final Result Performing Organization Address [facility] Co de Phone Number [facility] [address] [place] [address] * AST (01/15/2025 3:00 AM EST) Only the most recent of3 resultswithin the time period is included. AST (SGOT) 23 <34 U/L [facility] 01/15/2025 3:00 AM EST 01/17/2025 1:30 PM EST us Avi Kincaid MD LAB BLOOD ORDERABLES Final Result Performing Organization Address City/[facility] Co de Phone Number [facility] [address] [place] [address] * Protein, total (01/15/2025 3:00 AM EST) Only the most recent of3 resultswithin the time period is included. Total Protein 6.4 6.4 - 8.9 g/dL [facility] 01/15/2025 3:00 AM EST 01/17/2025 1:30 PM EST us Avi Kincaid MD LAB BLOOD ORDERABLES Final Result Performing Organization Address [facility] Co de Phone Number [facility] [address] [place] [address] * Alkaline phosphatase (01/15/2025 3:00 AM EST) Only the most recent of3 resultswithin the time period is included. Alkaline Phosphatase 92 46 - 116 U/L [facility] 01/15/2025 3:00 AM EST 01/17/2025 1:30 PM EST us Avi Kincaid MD LAB BLOOD ORDERABLES Final Result Performing Organization Address [facility] de Phone Number [facility] [address] [place] [address] * Magnesium (01/15/2025 3:00 AM EST) Only the most recent of3 resultswithin the time period is included. Magnesium 2.7 1.9 - 2.7 mg/dL [facility] 01/15/2025 3:00 AM EST 01/17/2025 1:30 PM EST us Avi Kincaid MD LAB BLOOD ORDERABLES Final Result Performing Organization Address [facility] de Phone Number [facility] [address] [place] [address] * (ABNORMAL) Lactate dehydrogenase (01/15/2025 3:00 AM EST) Only the most recent of3 resultswithin the time period is included. LDH 333(H) 120 - 246 U/L [facility] 01/15/2025 3:00 AM EST 01/17/2025 1:30 PM EST us Avi Kincaid MD LAB BLOOD ORDERABLES Final Result Performing Organization Address [facility] de Phone Number [facility] [address] [place] [address] * Glucose, random (01/15/2025 3:00 AM EST) Only the most recent of3 resultswithin the time period is included. Glucose 70 70 - 99 mg/dL [facility] Comment: ADA guidelines outline the following fasting glucose ranges: Normal: <100 Prediabetes: 100-125 Diabetes: >125 01/15/2025 3:00 AM EST 01/17/2025 1:30 PM EST us Avi Kincaid MD LAB BLOOD ORDERABLES Final Result Performing Organization Address [facility] Phone Number [address] [address] * (ABNORMAL) Ferritin (01/15/2025 3:00 AM EST) Only the most recent of3 resultswithin the time period is included. Ferritin 1,126(H) 10 - 291 ng/mL [facility] 01/15/2025 3:00 AM EST 01/17/2025 1:30 PM EST Result Cedrick Kincaid MD LAB BLOOD ORDERABLES Final Result Performing Organization Address [facility] de Phone Number [facility] [address] [address] * (ABNORMAL) Creatinine, serum (01/15/2025 3:00 AM EST) Only the most recent of3 resultswithin the time period is included. Creatinine 4.46(H) 0.55 - 1.02 mg/dL [facility] 01/15/2025 3:00 AM EST 01/17/2025 1:30 PM EST us Avi Kincaid MD LAB BLOOD ORDERABLES Final Result Performing Organization Address [facility] de Phone Number [facility] [address] [place] [address] * Bilirubin, total (01/15/2025 3:00 AM EST) Only the most recent of3 resultswithin the time period is included. Total Bilirubin 0.5 0.3 - 1.2 mg/dL [facility] 01/15/2025 3:00 AM EST 01/17/2025 1:30 PM EST us Avi Kincaid MD LAB BLOOD ORDERABLES Final Result Performing Organization Address [facility] de Phone Number [facility] [address] [place] [address] * (ABNORMAL) Electrolyte panel (01/15/2025 3:00 AM EST) Only the most recent of3 resultswithin the time period is included. Sodium 145 136 - 145 mEq/L [facility] Potassium 3.8 3.4 - 5.0 mEq/L [facility] Chloride 103 98 - 107 mEq/L [facility] Bicarbonate (CO2) 26 21 - 31 mEq/L [facility] Anion Gap 16(H) 3 - 14 mEq/L [facility] 01/15/2025 3:00 AM EST 01/17/2025 1:30 PM EST Avi Kincaid MD LAB BLOOD ORDERABLES Final Result Performing Organization Address [facility] de Phone Number [facility] [address] [place] [address] * (ABNORMAL) Hemoglobin and hematocrit (12/25/2024 3:00 AM EDT) Only the most recent of3 resultswithin the time period is included. Hgb 11.0(L) 11.2 - 15.7 g/dL [facility] Hematocrit 35.8 34.1 - 44.9 % [facility] Hemoglobin x 3 33.0(L) 33.6 - 47.1 g/dL [facility] 12/25/2024 3:00 AM EDT 12/27/2024 12:33 PM EDT Avi Kincaid MD LAB BLOOD ORDERABLES Final Result Performing Organization Address [facility] de Phone Number [facility] [address] [place] [address] * PTH, Intact (12/11/2024 3:00 AM EDT) Only the most recent of2 resultswithin the time period is included. PTH, Intact 161 160 - 721 pg/mL [facility] Comment: Suggested (KDIGO) ESRD maintenance range is two to nine times the upper normal limit (80.1 pg/mL) for the laboratory. 12/11/2024 3:00 AM EDT 12/13/2024 12:59 PM EDT Avi Kincaid MD LAB BLOOD ORDERABLES Final Result Performing Organization Address [facility] de Phone Number [facility] [address] [place] [address] * (ABNORMAL) Lipid panel (12/11/2024 3:00 AM EDT) Cholesterol 236(H) mg/dL [facility] Comment: Optimal: <200 Borderline: 200-239 High Risk: >239 Triglycerides 132 mg/dL [facility] Comment: Optimal: <150 Borderline: 150-200 High Risk: >200 HDL 81 mg/dL [facility] Comment: Optimal: >59 Borderline: 40-59 High Risk: <40 LDL-Calc 129(H) mg/dL [facility] Comment: Optimal: <100 Borderline: 100-159 High Risk: >159 VLDL Cholesterol Yordan 26 mg/dL [facility] Comment: Optimal: <30 Borderline: 30-40 High Risk: >40 Chol/HDL Ratio 2.9 [facility] Comment: Optimal: <3.3 High Risk: >6.2 12/11/2024 3:00 AM EDT 12/13/2024 12:59 PM EDT us Avi Kincaid MD LAB BLOOD ORDERABLES Final Result Performing Organization Address City/[facility]/ZIP Co de Phone Number [facility] [address] [place] [address] * Hemoglobin (12/04/2024 3:00 AM EDT) Pathologist [facility] Hgb 11.3 11.2 - 15.7 g/dL [facility] Hemoglobin x 3 33.9 33.6 - 47.1 g/dL [facility] 12/04/2024 3:00 AM EDT 12/06/2024 12:29 PM EDT us Avi Kincaid MD LAB BLOOD ORDERABLES Final Result Performing Organization Address [facility] de Phone Number [facility] [address] [place] [address] * (ABNORMAL) Kt/V Natural Log, URR (11/13/2024 3:00 AM EDT) Pathologist [facility] Treatment Time 178 min [facility] Pre-Weight, lb 54.6 kg [facility] Post-Weight, lb 53.2 kg [facility] Ultrafiltration Rate 9 <=13 mL/kg/hr [facility] Comment: Recommend achieving Ultrafiltration Rate (UFR) <=10 mL/kg/hr References: Davonte GROVER et al. Kidney Int. 2010; 79(2):250-257 BUN 65(H) 7 - 25 mg/dL [facility] BUN Post Dialysis 11 7 - 25 mg/dL [facility] UREA REDUCTION RATIO (%) 83 >=65 % [facility] Kt/V Natural Log 2.02 >=1.2 [facility] 11/13/2024 3:00 AM EDT 11/16/2024 12:19 PM EDT us Avi Kincaid MD LAB HISTORICA [id number] RESULTS Final Result Performing Organization Address [facility] Co de Phone Number [facility] [address] [place] [address] * Phosphorus (11/02/2024 3:00 AM EDT) Phosphorus, Serum 3.8 2.5 - 5.0 mg/dL [facility] 11/02/2024 3:00 AM EDT 11/03/2024 1:28 PM EDT Avi Kincaid MD LAB BLOOD ORDERABLES Final Result [facility] [address] [place] [address] from Last 3 Months Insurance Medicare [facility] Medicare [employer] Care Teams Title 1 Tutor Relationship Specialty Start Date End Date Leticia Mayo PA [address] [place] [phone] PCP - General Physician Senior Manager Mmcoe 07/10/20
== END 2025-01-26 10:48 | disposition home or self-care (01) ==
LOC: HO.LAB 10:47
PROVIDERS: PCP Physician Assistant; Visit Provider Urology
DX: N39.0 Urinary tract infection, site not specified (principal)
CPT/HCPCS: 81001; 87086

== ENCOUNTER 2025-02-21 08:31 | Outpatient (REF) | payer MEDICARE, OTHER, SELFPAY ==
--- NOTE | ~2025-02-21 | XR_ITS ---
EXAMINATION: XR HIP, LEFT CLINICAL INFORMATION: M25.552 - Pain in left hip COMPARISON: X-ray 08/30/2024 TECHNIQUE: Two views of the left hip. Pelvis 1 view FINDINGS: Left hip: Left hip arthroplasty. No acute periprosthetic fracture. No findings to suggest hardware failure. Pelvis: No significant left hip arthritic changes. Mild symphysis pubis degeneration. No acute pelvic fracture seen. There is calcification seen lateral to the greater tuberosity, could reflect dystrophic calcifications. Diffuse bone demineralization. XR/XR hip LT min 2V IMPRESSION: Left hip arthroplasty. No acute findings. Electronically signed by: Pollo Morales MD 02/21/2025 04:40 PM [facility]
--- OUTSIDE RECORDS SUMMARY | 2025-02-22 09:03 | XMS_ITS | Clinical Summary ---
Author Organization [facility] Address [address] [place] [address] Phone Care Team Providers Care Hospice Social Worker Name Role Phone Leticia Mayo Primary Care Provider [phone] Allergies No known active allergies Medications Nephro-Jese [...] as per Orthopedics recommendations 30 each 01/22/20 Active carvediloL (COREG) 6.25 mg tablet Take 1 tablet (6.25 mg total) by mouth 2 (two) times daily after breakfast and lunch. 60 each 01/22/20 Active torsemide (DEMADEX) 20 mg tablet Take [...] with polyangiitis 01/12/2024 Hypertension 01/12/2024 HLD (hyperlipidemia) Surgical History Surgery Date Site/Laterality Comments ORIF HIP FRACTURE Left HERNIA REPAIR PARTIAL HYSTERECTOMY N/A Medical History Medical History Date Comments HTN (hypertension) ESRD (end stage renal diseas e) on dialysis ([facility] V24, [facility]28) Closed left hip fracture ([facility] V24, [facility] V 28) 01/08/2024 Granulomatosis with polyangiitis ([facility] V24, [facility] V28) Lung nodule HLD (hyperlipidemia) Vasculitis, ANCA positive ([facility] V24, [facility] V28) Social History Tobacco Use Types Packs/Day [...] PM EST Sexual Orientation Not on file Last Filed [...] mmol/L LAB CHEMISTRY METHOD 01/20/2024 9:11 AM [facility] Potassium 3.4(L) 3.5 - 5.5 mmol/L LAB CHEMISTRY METHOD 01/20/2024 9:11 AM [facility] Chloride 100 96 - 110 mmol/L LAB CHEMISTRY METHOD 01/20/2024 9:11 AM [facility] CO2 31 21 - 32 mmol/L LAB CHEMISTRY METHOD 01/20/2024 9:11 AM [facility] Anion Gap 8 3 - 11 LAB CHEMISTRY METHOD 01/20/2024 9:11 AM [facility] Glucose 131(H) 70 - 100 mg/dL LAB CHEMISTRY METHOD 01/20/2024 9:11 AM [facility] BUN 92(H) 5 - 25 mg/dL LAB CHEMISTRY METHOD 01/20/2024 9:11 AM [facility] Creatinine 5.25(H) 0.50 - 1.10 mg/dL LAB CHEMISTRY METHOD 01/20/2024 9:11 AM [facility] eGFR 8(L) >=60 mL/min/1. 73m2 LAB CHEMISTRY METHOD 01/20/2024 9:11 AM EST [facility] Comment:Calculation based on the Chronic Kidney Disease Epidemiology Collaboration (CKD-EPI) equation refit without adjustment for race. BUN/Creatinine Ratio 17.5 LAB CHEMISTRY METHOD 01/20/2024 9:11 AM EST [facility] Calcium 9.5 8.5 - 10.5 mg/dL LAB CHEMISTRY METHOD 01/20/2024 9:11 AM EST [facility] Blood Venous blood specimen / Unknown Venipuncture / Unknown 01/20/2024 8:31 AM EST 01/20/2024 8:38 AM EST Shireen Bansal DO LAB BLOOD ORDERABLES Renetta l Result [facility] [address] [place] [address], from Last 3 Months or Most Recently Relevant to Health Maintenance Insurance MEDICARE [facility] Advance Directives Documents on File Type Date Recorded Patient Expressive Art Therapist Expl anation Advance Directives and Living Will [...] currently active code status orders. Care Teams Hospice Social Worker Relationship Specialty Start Date End Date Leticia Mayo PA [address] [place] [address] PCP - General Physician Patrol Supervisor 01/12/24
--- OUTSIDE RECORDS SUMMARY | 2025-02-22 09:03 | XMS_ITS | Encounter Summary ---
Author Organization [facility] Address [address] [place] [address] Phone Care Team Providers Care Tallow Maker Name Role Phone Christophe Mayo MD Primary Care Provider [phone] Encounter Details Date Type Department Care Team ([facility] [address] Contact Info) Description 12/06/2024 Ancillary Orders Virtual Department [address] [place] [address] Leticia Mayo PA [address] [place] [phone] Osteopenia, unspecified location (Primary Dx); Other specified [...] Info) Description 07/17/2025 1:00 PM EDT Appointment [facility], Bone Density - [facility] [address] [place] [address] Leticia Mayo PA [address] [place] [address] Scheduled Orders Name Type Priority Associated Diagnoses [...] state documented in this encounter Care Teams Tallow Maker Relationship Specialty Start Date End Date Christophe Mayo MD [email or web address] PCP - General Family Medicine 11/17/17 documented as of this encounter Additional Source Comments The information contained in this document represents components of the legal health record. It is not the complete legal health record.[facility]
--- OUTSIDE RECORDS SUMMARY | 2025-02-22 09:03 | XMS_ITS | Clinical Summary ---
Author Organization [facility] Address [address] [place] [address] Phone Care Team Providers Care Nurse Intern Name Role Phone Christophe Ann MD Primary Care Provider [phone] Allergies No known active allergies Medications antiox. [id number] t-lou 280-10-2 mg Cap as directed Active torsemide (DEMADEX) 20 MG tablet Take 20 mg by mouth daily. 2 Active sevelamer carbonate ([place]ELA) 800 mg tablet Take 800 mg by mouth 2 (two) times a day. 2 Active ferrous sulfate 325 mg (65 mg [place] iron) tablet Take 325 mg by mouth [...] Description 12/06/2024 Ancillary Orders Virtual Department [address] [place] [address] Leticia Ann PA Osteopenia, unspecified location (Primary Dx); Other specified disorders of bone density and structure, unspecified site; Asymptomatic menopausal state 12/06/2024 Transcribe Orders Virtual Department [address] [place] [address] Leticia Ann PA Osteopenia, unspecified location (Primary [...] Info) Description 07/17/2025 1:00 PM EDT Appointment [facility], Bone Density - [address] [address] Leticia Ann PA [address] [place] [phone] Health Maintenance Due Date Last Done Comments [...] this topic Medical Devices Implanted Type Area Water Pollution Scientist Device Identifier Shelf Expiration Date Model / Serial / Lot Mesh Synthetic 6.0 Digna Abdominal Non Absorbable Square Polypropylene Bx/6ea - [id number] Implanted:Qty: 1 on 07/19/2022 by Cora Webb MD at [facility] STANDARD Left: Groin JNJ ETHICON / DIVISION OF J 12/07/2022 [facility] / / [id number] Shunt Shunt Left: Arm Procedures Procedure Name [...] 68 Admit Type: Outpatient Gender: Female Room: [place] [address] Referring MD: CHRISTOPHE ANN MD Exam Type: [...] monitored continuously. The Olympus adult variable colonoscope [id number] #7 was introduced through the anus and [...] 11:30 AM Procedure Code(s): --- Professional --- 08578, Colonoscopy, flexible; diagnostic, including collection of specimen(s) by brushing or washing, when performed (separateprocedure) --- Technical --- 58964, Colonoscopy, flexible; diagnostic, including collection of specimen(s) by brushing or washing, when performed (separateprocedure) Diagnosis Code(s): --- Professional --- Z86.010, Personal history of colonic polyps K64.8, Other hemorrhoids K57.30, Diverticulosis of large intestine without perforation orabscess without bleeding --- Technical --- Z86.010, Personal history of colonic polyps K64.8, Other hemorrhoids K57.30, Diverticulosis of large intestine without perforation orabscess without bleeding CPT copyright 2016 [employer]. All rights reserved. The codes documented in this report are preliminary and upon sand slinger operator reviewmay be revised to meet current compliance requirements. [address], [place] [address] Christophe Ann MD GI PROCEDURE ORDERABLES Final Result from Last 3 Months or Most Recently Relevant to Health Maintenance Insurance MEDICARE PART A & B [facility] MEDICARE SUPPLEMENT MEDICARE PART A & B [facility] MEDICARE SUPPLEMENT MEDICARE PART A & B [facility] MEDICARE SUPPLEMENT MEDICARE PART A & B [facility] MEDICARE SUPPLEMENT MEDICARE PART A & B [facility] MEDICARE SUPPLEMENT MEDICARE PART A & B [employer] MEDICARE SUPPLEMENT MEDICARE PART A & B [employer] EXTENSION MEDICARE SUPPLEMENT MEDICARE PART A & B [employer] MEDICARE SUPPLEMENT MEDICARE PART A & B [employer] MEDICARE SUPPLEMENT Advance Directives For more information, please contact: [phone] (9AM - 5PM [facility], Friday-Friday) * Full Code (Latest Code Status on File) Date Activated Date Inactivated Comments 07/19/2022 7:50 AM Question Answer Comments Code Status Confirmed With: Patient Care Teams Nurse Intern Relationship Specialty Start Date End Date Christophe Ann MD PCP - General Family Medicine 11/17/17 Additional Source Comments The information contained in this document represents components of the legal health record. It is not the complete legal health record.[facility]
--- OUTSIDE RECORDS SUMMARY | 2025-02-22 09:03 | XMS_ITS | Encounter Summary ---
Author Organization [facility] Address [address] [place] [address] Phone Care Team Providers Care Branch Services Manager Name Role Phone Christophe Mayo MD Primary Care Provider [phone] Encounter Details Date Type Department Care Team (Late st Contact Info) Description 07/19/2022 Procedure Pass OR Admitting Dept - Virtual Department [address] [place] [address] Social History Tobacco Use Types Packs/Day Years [...] Info) Description 07/17/2025 1:00 PM EDT Appointment [facility], Bone Density - [facility] [address] [place] [address] Leticia Mayo PA [address] [place] [phone] documented as of this encounter Visit Diagnoses Not on filedocumented in this encounter Care Teams Branch Services Manager Relationship Specialty Start Date End Date Christophe Mayo MD [email or web address] PCP - General Family Medicine 11/17/17 documented as of this encounter Additional Source Comments The information contained in this document represents components of the legal health record. It is not the complete legal health record.[facility]
--- OUTSIDE RECORDS SUMMARY | 2025-02-22 09:03 | XMS_ITS | Patient Health Record ---
Author Organization [facility] Address [address] [place] [phone] Care Team Providers Care Bakery Technician Name Role Phone Alvaro Genao Jr Reason For Referral No Information Plan Of Treatment No Information
--- OUTSIDE RECORDS SUMMARY | 2025-02-22 09:03 | XMS_ITS | Patient Health Record ---
Author Organization [facility] Address [address] [place] [address] Care Team Providers Care Logistics Technician Name Role Phone Christophe Mayo MD Primary Care Provider Unavaila Lester Nelson Unavailable [phone] Reason For Referral No Information Medications Medication SIG (Take, Route, Frequency, Duration) Notes Start Date End Date Status amLODIPine Besylate 5 MG 1 tablet Orally Once a day Active Problems No Known Problems Plan Of Treatment Pending Test Test Name Order Date [id number], 1-14 01/21/2014 Insurance Providers Payer Name Payer Address Payer Phone Subscriber Number Group Number Insured Name Patient Relationship to Insured Coverage Start Date Coverage End Date [employer] ([employer]) [address] [place] [id number] Akanksha Tran Self - patient is the insured Medical (General) History Medical History History ICD Code Arthritis High blood pressure Psoriasis/eczema Reflux Measles Mumps Chicken pox Surgical History Surgery Date(Month/Year) hysterectomy 2005 hernia 2011
--- OUTSIDE RECORDS SUMMARY | 2025-02-22 09:03 | XMS_ITS | Encounter Summary ---
Author Organization [facility] Address [address] [place] [address] Phone Care Team Providers Care Supervisor Pastry Name Role Phone Christophe Mayo MD Primary Care Provider [phone] Encounter Details Date Type Department Care Team (Late st Contact Info) Description 02/03/2018 Procedure Pass [facility] Endoscopy Admitting Dept Virtual Department [address] [place] [address] Social History Tobacco Use Types Packs/Day Years [...] Description 07/17/2025 1:00 PM EDT Appointment [facility], Bone Density - [facility] [address] [place] [address] Leticia Mayo PA [address] [place] [phone] documented as of this encounter Visit Diagnoses Not on filedocumented in this encounter Additional Health Concerns Infection Onset Date Last Indicated Resolved Time CoV-Risk 05/27/2020 05/28/2020 06/06/2020 1:23 AM EDT documented as of this encounter Care Teams Supervisor Pastry Relationship Specialty Start Date End Date Christophe Mayo MD [email or web address] PCP - General Family Medicine 11/17/17 documented as of this encounter Additional Source Comments The information contained in this document represents components of the legal health record. It is not the complete legal health record.[facility]
--- OUTSIDE RECORDS SUMMARY | 2025-02-22 09:03 | XMS_ITS | Encounter Summary ---
Author Organization [facility] Address [address] [place] [address] Phone Care Team Providers Care Statistics Tutor Name Role Phone Christophe Mayo MD Primary Care Provider [phone] Encounter Details Date Type Department Care Team (Latest Contact Info) Description 11/17/2017 Transcribe Orders [facility] Phleb Junie [address] [facility] [address] [place] [address] Dorina Perry PA-C [address], [address] [place] [address] Rectal bleeding (Primary Dx); Rectal pain Social [...] Info) Description 07/17/2025 1:00 PM EDT Appointment [facility], Bone Density - [facility] [address] [place] [address] Leticia Mayo PA [address] [place] [phone] documented as of this encounter Results * (ABNORMAL) CBC (11/17/2017 10:41 AM EDT) WBC 5.59 3.40 - 11.20 K/uL [facility] RBC 4.85(H) 3.80 - 4.80 M/uL [facility] HGB 14.5 12.0 - 15.0 g/dL [facility] HCT 43.9 36.0 - 46.0 % [facility] PLT 229 130 - 400 K/uL [facility] MCV 90.5 79.0 - 98.0 fL [facility] MCH 29.9 27.0 - 34.8 pg [facility] MCHC 33.0 31.5 - 36.0 g/dL [facility] RDW 12.7 10.8 - 14.6 % [facility] MPV 11.3 9.4 - 12.4 fl [facility] NRBC 0.00 /100 WBCs [facility] ABSOLUTE NRBC 0.00 K/uL [facility] Blood 11/17/2017 10:4 1 AM EDT 11/17/2017 10:45 AM EDT Dorina Perry PA-C LAB BLOOD BKR ORDERABLES Final Result [facility] [address] [place] [address] documented in this encounter Visit Diagnoses Diagnosis Rectal bleeding- Primary Hemorrhage of rectum and anus Rectal pain Anal or rectal pain documented in this encounter Additional Health Concerns Infection Onset Date Last Indicated Resolved Time CoV-Risk 05/27/2020 05/28/2020 06/06/2020 1:23 AM EDT documented as of this encounter Care Teams Statistics Tutor Relationship Specialty Start Date End Date Christophe Mayo MD [email or web address] PCP - General Family Medicine 11/17/17 documented as of this encounter Additional Source Comments The information contained in this document represents components of the legal health record. It is not the complete legal health record.[facility]
--- OUTSIDE RECORDS SUMMARY | 2025-02-22 09:03 | XMS_ITS | Encounter Summary ---
Author Organization [facility] Address [address] [place] [address] Phone Care Team Providers Care Criminal Defense Attorney Name Role Phone Christophe Mayo MD Primary Care Provider [phone] Encounter Details Date Type Department Care Team (Latest Contact Info) Description 12/06/2024 Transcribe Orders Virtual Department [address] [place] [address] Leticia Mayo PA [address] [place] [phone] Osteopenia, unspecified location (Primary Dx) Social History [...] Info) Description 07/17/2025 1:00 PM EDT Appointment [facility], Bone Density - [facility] [address] [place] [address] Leticia Mayo PA [address] [place] [phone] documented as of this encounter Visit Diagnoses Diagnosis Osteopenia, unspecified location- Primary documented in this encounter Care Teams Criminal Defense Attorney Relationship Specialty Start Date End Date Christophe Mayo MD [email or web address] PCP - General Family Medicine 11/17/17 documented as of this encounter Additional Source Comments The information contained in this document represents components of the legal health record. It is not the complete legal health record.[facility]
--- OUTSIDE RECORDS SUMMARY | 2025-02-22 09:03 | XMS_ITS | Encounter Summary ---
Author Organization [facility] Address [address] [place] [address] Phone Care Team Providers Care Enterprise Solutions Architect Name Role Phone Christophe Mayo MD Primary Care Provider [phone] Encounter Details Date Type Department Care Team (Late st Contact Info) Description 06/10/2018 Procedure Pass [facility] Endoscopy Admitting Dept Virtual Department [address] [place] [address] Social History Tobacco Use Types Packs/Day Years [...] Info) Description 07/17/2025 1:00 PM EDT Appointment [facility], Bone Density - [facility] [address] [place] [address] Leticia Mayo PA [address] [place] [phone] documented as of this encounter Visit Diagnoses Not on filedocumented in this encounter Additional Health Concerns Infection Onset Date Last Indicated Resolved Time CoV-Risk 05/27/2020 05/28/2020 06/06/2020 1:23 AM EDT documented as of this encounter Care Teams Enterprise Solutions Architect Relationship Specialty Start Date End Date Christophe Mayo MD [email or web address] PCP - General Family Medicine 11/17/17 documented as of this encounter Additional Source Comments The information contained in this document represents components of the legal health record. It is not the complete legal health record.[facility]
== END 2025-02-21 08:32 | disposition home or self-care (01) ==
LOC: HO.HOSX 08:31
PROVIDERS: Visit Provider Physician Assistant
DX: S72.002A Fracture of unspecified part of neck of left femur, initial encounter for closed fracture (principal); X58.XXXA Exposure to other specified factors, initial encounter
CPT/HCPCS: 73502

== ENCOUNTER 2025-02-21 11:37 | Outpatient (AMB) | payer MEDICARE, OTHER, SELFPAY ==
--- NOTE | 2025-02-21 11:54 | MHC.OFFVIS ---
Vital Signs 02/21/25 11:54 Height 5 ft 5 in Weight 120 lb BMI 20.0 Intake Visit Reasons: OV- LT hip pain s/p lyle 01/2024 NE Intake Note: Akanksha is a 74 year old female who presents today for a follow up visit with complaints of left hip pain. Patient is status post left hip lyle, performed by Dr. Nichols on 01/09/24. Today patient reports intermittent pain that at times becomes extremely painful. Her pain is located in the groin area. Denies injury. Finds some relief with laying flat on her bed for a few hours. Allergies No Known Allergies Allergy (Verified 02/21/25 12:03) Medication List - Last Reconciled 03/01/25 by Jt Butler PA-C acetaminophen 650 mg (2 x 325 mg) PO Q6H PRN B complex-vitamin C-folic acid 0.8 mg (Nephro-Jese) 1 tab PO DAILY carvedilol 1 tab PO BID@0800,1200 lactobacillus combination no.9 (Adult 50 Plus Probiotic) 4,000 mmu cells PO DAILY prednisone 5 mg PO DAILY sevelamer carbonate 800 mg PO TID torsemide 20 mg PO DAILY HPI HPI OV- LT hip pain s/p lyle 01/2024 NE: Details: 74 yo female returns to the office today s/p Left hip hemiarthroplasty on 01/09/24 . She is ambulating without assistive device. She does have concerns for occassional pain in the groin that radiates to her interpubic region . She states it is not constant. It is random. No other concerns. 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 Hyperlipidemia Hypertension Surgical History H/O hernia repair History of partial hysterectomy Social History Household Members: Children Household Members Other:: SON Housing: House Are you a primary certified social workers in health care to a significant other at home: No Do you presently have visiting nurse or other home services: No Alcohol intake: never Patient Tobacco Use Status: Former Tobacco user Tobacco use type: Cigarette Years Smoked: 5 Advance Directives Date on File: 06/13/20 service: No Current occupational status: retired Review of Systems Const All systems reviewed & are unremarkable except as noted in HPI and below Physical Exam Vital Signs: BMI result Body Mass Index 20.0 Extrem Other: Left hip: Incision well healed. No pain ROM of hip. No pain with hip flexion. Calf supple, nontender. NVI. Results Reviewed Results Reviewed: Xrays were obtained in the office today and personally reviewed by me of the t hip show intact prosthesis Assessment & Plan Assessment & Plan (1) Fracture of femoral neck, left: Code(s): S72.002A - Fracture of unspecified part of neck of left femur, initial encounter for closed fracture Category: Medical Qualifiers: Encounter type: initial encounter Fracture type: closed Qualified Code(s): S72.002A - Fracture of unspecified part of neck of left femur, initial encounter for closed fracture Plan: I reassured the patient the hardware is intact and likely not the source of her occassional groin pain. I explained she may have some dysfunction of the internal hip rotators which can cause some discomfort. I encouraged her tow ork on her HEP and also gave her some information on a pelvic floor therapist if she continues to have the discomfort they may be able to assess her and help with some exercises. Patient is content with this plan and will f/u with us prn. Orders: Orders XR hip LT min 2V 02/21/25 M25.552 - Pain in left hip Coding Level of Care Code Global (65351) Diagnoses Fracture of femoral neck, left S72.002A Encounter type: initial encounter Fracture type: closed
== END 2025-02-21 12:09 | disposition home or self-care (01) ==
LOC: HO.HOS 11:37
PROVIDERS: PCP Physician Assistant; Visit Provider Physician Assistant
DX: S72.002A Fracture of unspecified part of neck of left femur, initial encounter for closed fracture (principal)
CPT/HCPCS: 99213

== ENCOUNTER → 2025-02-21 11:38 | Outpatient (BNV) | payer MEDICARE, OTHER, SELFPAY | PROVIDERS: Visit Provider Radiology Diagnostic Ultrasound | DX: M25.552 Pain in left hip (principal); Z96.642 Presence of left artificial hip joint | CPT/HCPCS: 73502 ==